=== PATIENT | female | born 1960 | race Caucasian/White ===

== ENCOUNTER 2019-03-06 15:45 | Emergency (ER) | payer MEDICARE, MEDICAID, SELFPAY ==
[2019-03-06 15:48] VITALS: BP 102/83; PULSE 90; RESP 18; TEMP 36.3; O2SAT 96; BMI 29.8
--- NOTE | 2019-03-06 15:59 | ED_ITS ---
HPI - General Adult General: Chief complaint: General Medical, Adult Stated complaint: fever, cough, n/v/d, patient states that she has had cough and congestion for the last week. Patient had fallen and cracked left anterior ribs about 5 weeks ago. Patient feels like she may have pneumonia. Patient appears well. Patient appears in mild pain. Patient also states she has diarrhea but she has been doing that for the last 8 weeks and is waiting results from colonoscopy. Time Seen by Provider: 03/06/19 15:53 Source: patient Mode of arrival: ambulatory Limitations: no limitations Review of Systems General: Reports: 10 or more systems reviewed and unremarkable except in HPI and below Const: Reports: fever Resp: Reports: non-productive cough GI: Reports: diarrhea PFSH ED PFSH: Statuses (acute, chronic, etc) shown below reflect problem list status as previously entered and may not be historically accurate Social History Smoking and tobacco status: current every day smoker Physical Exam Const: COMMON NORMALS: no apparent distress and oriented x3 GENERAL APPEARANCE: cooperative HENMT: COMMON NORMALS: normocephalic, external ears normal, EAC's normal, TM's normal bilaterally and external nose normal HEAD & SCALP: normal to inspection and normocephalic FACE & SINUS: normal facial exam NOSE: external nose normal GENERAL EAR: hearing grossly impaired EXTERNAL EAR: Yes external ears normal EXTERNAL AUDITORY CANAL: EAC's normal TYMPANIC MEMBRANE: TM's normal bilaterally MOUTH: oral and palatal mucosa normal THROAT: posterior oropharynx normal Eye: COMMON NORMALS: PERRL and EOMs intact bilaterally PUPIL: Yes PERRL Neck/C-Spine: COMMON NORMALS: full ROM and no lymphadenopathy Lymph: LYMPHATIC: no lymphedema noted Chest: COMMONS NORMALS: inspection of chest normal and palpation of chest normal Resp: COMMON NORMALS: normal respiratory effort and clear to auscultation bilaterally AUSCULTATION: clear to auscultation bilaterally Cardio: COMMON NORMALS: regular rate and regular rhythm RATE: regular rate RHYTHM: regular rhythm GI: COMMON NORMALS: normal to inspection, nondistended, normoactive bowel sounds and non-tender : COMMON NORMALS: Yes no CVA tenderness BLADDER/KIDNEY EXAM: Yes no CVA tenderness Back/Pelvis: COMMON NORMALS: no CVA tenderness and thoracic and lumbar spine normal to inspection Extremity: COMMON NORMALS: normal to inspection GENERAL: No edema Neuro: COMMON NORMALS: oriented x3, moves all extremities and no focal motor deficits Psych: COMMON NORMALS: mental status grossly normal and cooperative Skin: COMMON NORMALS: no rashes or lesions noted GENERAL SKIN EXAM: no rashes or lesions noted Course Vital Signs: Vital signs: Vital Signs Temperature 97.4 F L 03/06/19 15:48 Pulse Rate 84 03/06/19 16:57 Respiratory Rate 20 H 03/06/19 16:57 Blood Pressure 120/86 03/06/19 16:57 Pulse Oximetry 96 03/06/19 16:57 MDM - General Adult MDM Narrative: Medical decision making narrative: Patient comes in today for complaints of cough with fever for the last 2 to 3 days. Patient reports an injury to her left ribs about 5 weeks ago and is concerned she might be developing pneumonia. Lungs are clear to auscultation with occasional anterior rhonchi. Skin is warm and dry color is pink. Vital signs are stable with normal oxygenation. Differential diagnosis includes bronchitis, upper respiratory infection, influenza, pneumonia. Laboratory values were insignificant. Patient was given a dose of dexamethasone for cough and congestion. Patient was started on doxycycline for 10 days for bronchitis. Encourage fluids rest and follow-up with primary care. Patient reported understanding and agreed to plan. Discharge Plan Discharge Patient Disposition: Home, Self-Care Clinical Impression: Bronchitis Condition: Stable Prescriptions: New doxycycline hyclate 100 mg capsule 100 mg PO BID 10 Days Qty: 20 RF: 0 Discharge Orders: Discharge Order (Routine); Ordered 03/06/19 Ordered By: Cliff Mcdaniels Referrals: Geovanna Hernandez MD [Family Provider] - Discharge Diet: Usual diet Discharge Activity: Resume usual activity Activity Restrictions/Additional Instructions: Drink plenty of fluids Acetaminophen and ibuprofen for pain or fever Activity as tolerated Follow-up with primary care in three days for recheck Return to ER for worsening difficulty breathing Coding Level of Care Code ED Is Project Manager for Kishan Sandhu Exam Problem Focused
--- NOTE | 2019-03-06 16:01 | XRR_ITS ---
PROCEDURE INFORMATION: Exam: XR Chest, 1 View Exam date and time: 03/06/2019 4:02 PM Age: 59 years old Clinical indication: Patient HX: Diarrhea x 2 wks, smoker; Additional info: Cough, fever TECHNIQUE: Imaging protocol: XR of the chest Views: 1 view. COMPARISON: CR Chest 2 views* [id number] 01/06/2019 4:16 PM FINDINGS: Lungs: Stable COPD . Mild left basilar bronchopneumonia. Pleural space: Unremarkable. No pleural effusion. No pneumothorax. Heart/Mediastinum: Unremarkable. No cardiomegaly. Bones/joints: Unremarkable. XR/XR chest 1V portable [id number] IMPRESSION: Mild left basilar bronchopneumonia.
[2019-03-06 16:57] VITALS: BP 120/86; PULSE 84; RESP 20; O2SAT 96
[2019-03-06 17:21] LABS: Influenza A by IFA Negative (Negative); Influenza B by IFA Negative (Negative)
[2019-03-06] MEDS: dexamethasone 10 mg/mL INJ IM (17:28)
[2019-03-06] MEDS: doxycycline 100 mg Tablet PO (17:28)
--- NOTE | 2019-03-06 17:29 | W.ED.GENADLT ---
HPI - General Adult General: Chief complaint: General Medical, Adult Stated complaint: fever, cough, n/v/d, patient states that she has had cough and congestion for the last week. Patient had fallen and cracked left anterior ribs about 5 weeks ago. Patient feels like she may have pneumonia. Patient appears well. Patient appears in mild pain. Patient also states she has diarrhea but she has been doing that for the last 8 weeks and is waiting results from colonoscopy. Time Seen by Provider: 03/06/19 15:53 Source: patient Mode of arrival: ambulatory Limitations: no limitations PFSH ED PFSH: Statuses (acute, chronic, etc) shown below reflect problem list status as previously entered and may not be historically accurate Social History Smoking and tobacco status: current every day smoker Course Vital Signs: Vital signs: Vital Signs Temperature 97.4 F L 03/06/19 15:48 Pulse Rate 86 03/06/19 17:46 Respiratory Rate 22 H 03/06/19 17:46 Blood Pressure 113/84 03/06/19 17:46 Pulse Oximetry 97 03/06/19 17:46 MDM - General Adult Lab Data: Labs: Lab Results 03/06/19 Range/Units 16:45 Influenza Type A A g Negative (Negative) POC Influenza B Ag Negative (Negative) Discharge Plan Discharge Patient Disposition: Home, Self-Care Clinical Impression: Bronchitis, Flu syndrome Condition: Stable Prescriptions: New doxycycline hyclate 100 mg capsule 100 mg PO BID 10 Days Qty: 20 RF: 0 Tamiflu 75 mg capsule 75 mg PO BID 5 Days Qty: 10 RF: 0 Discharge Orders: Discharge Order (Routine); Ordered 03/06/19 Ordered By: Cliff Mcdaniels Referrals: Geovanna Hernandez MD [Family Provider] - Discharge Diet: Usual diet Discharge Activity: Resume usual activity Patient Instructions: Influenza (ED) Activity Restrictions/Additional Instructions: Drink plenty of fluids Acetaminophen and ibuprofen for pain or fever Activity as tolerated Follow-up with primary care in three days for recheck Return to ER for worsening difficulty breathing Discharge Date/Time: 03/06/19 17:44 Coding Level of Care Code ED Tea And Spice Supervisor for Kishan Sandhu
--- NOTE | 2019-03-06 17:35 | ED_ITS ---
HPI - General Adult General: Chief complaint: General Medical, Adult Stated complaint: fever, cough, n/v/d, patient states that she has had cough and congestion for the last week. Patient had fallen and cracked left anterior ribs about 5 weeks ago. Patient feels like she may have pneumonia. Patient appears well. Patient appears in mild pain. Patient also states she has diarrhea but she has been doing that for the last 8 weeks and is waiting results from colonoscopy. Time Seen by Provider: 03/06/19 15:53 Source: patient Mode of arrival: ambulatory Limitations: no limitations PFSH ED PFSH: Statuses (acute, chronic, etc) shown below reflect problem list status as previously entered and may not be historically accurate Social History Smoking and tobacco status: current every day smoker Course Vital Signs: Vital signs: Vital Signs Temperature 97.4 F L 03/06/19 15:48 Pulse Rate 84 03/06/19 16:57 Respiratory Rate 20 H 03/06/19 16:57 Blood Pressure 120/86 03/06/19 16:57 Pulse Oximetry 96 03/06/19 16:57 MDM - General Adult MDM Narrative: Medical decision making narrative: addendum, flu swab came back positive for type A, added tamiflu to plan Lab Data: Labs: Lab Results 03/06/19 Range/Units 16:45 Influenza Type A A g Negative (Negative) POC Influenza B Ag Negative (Negative) Discharge Plan Discharge Patient Disposition: Home, Self-Care Clinical Impression: Bronchitis, Flu syndrome Condition: Stable Prescriptions: New doxycycline hyclate 100 mg capsule 100 mg PO BID 10 Days Qty: 20 RF: 0 oseltamivir [Tamiflu] 75 mg capsule 75 mg PO BID 5 Days Qty: 10 RF: 0 Discharge Orders: Discharge Order (Routine); Ordered 03/06/19 Ordered By: Cliff Mcdaniels Referrals: Geovanna Hernandez MD [Family Provider] - Discharge Diet: Usual diet Discharge Activity: Resume usual activity Patient Instructions: Influenza (ED) Activity Restrictions/Additional Instructions: Drink plenty of fluids Acetaminophen and ibuprofen for pain or fever Activity as tolerated Follow-up with primary care in three days for recheck Return to ER for worsening difficulty breathing Coding Level of Care Code ED Extrusion Engineer for Kishan Sandhu
[2019-03-06] MEDS: oseltamivir phosphate 75 mg Capsule PO (17:43)
[2019-03-06 17:46] VITALS: BP 113/84; PULSE 86; RESP 22; O2SAT 97
== END 2019-03-06 17:44 | disposition home or self-care (01) ==
PROVIDERS: Emergency Provider Nurse Practitioner Family; Family Provider Internal Medicine
DX: J40 Bronchitis, not specified as acute or chronic (principal); F17.210 Nicotine dependence, cigarettes, uncomplicated
CPT/HCPCS: 71045; 87804; 96372; 99282; J1100

== ENCOUNTER → 2019-05-30 13:51 | Outpatient (BNVA) | payer MEDICARE, MEDICAID, SELFPAY | PROVIDERS: Family Provider Internal Medicine; PCP Internal Medicine; Visit Provider Internal Medicine Rheumatology | DX: M05.79 Rheumatoid arthritis with rheumatoid factor of multiple sites without organ or systems involvement (principal); Z79.899 Other long term (current) drug therapy | CPT/HCPCS: 36415; 80076; 82565; 85025; 85651; 86140 ==

== ENCOUNTER → 2019-05-30 14:03 | Outpatient (BNVA) | payer MEDICARE, MEDICAID, SELFPAY | PROVIDERS: Family Provider Internal Medicine; PCP Internal Medicine; Visit Provider Internal Medicine Rheumatology | DX: M05.79 Rheumatoid arthritis with rheumatoid factor of multiple sites without organ or systems involvement (principal); Z79.899 Other long term (current) drug therapy | CPT/HCPCS: 85025 ==

== ENCOUNTER 2019-06-22 16:02 | Outpatient (CLI) | payer MEDICARE, MEDICAID, SELFPAY ==
--- NOTE | 2019-06-22 16:11 | USCV_ITS ---
Shana Roy Age: 59 Gender: F : 1960 Exam Date: 06/22/2019 16:19 Ordering Phys: Ceci Sinclair APPLICATION HELPER Technologist: Tatum Almodovar [place] [facility] [place]ication: LEG PAIN HISTORY: Lower extremity pain. PROCEDURES: Venous duplex imaging was performed in only the right lower extremity. The following venous structures were evaluated: common femoral vein, profunda vein, proximal portion of the greater saphenous vein, superficial femoral vein, and the popliteal vein. In addition, the posterior tibial and peroneal trunk were evaluated. Serial compression, augmentation maneuvers, and spectral Doppler flow evaluation were performed. FINDINGS: No evidence of DVT seen in any vessel visualized at this time. In the right popliteal fossa there does appear to be a large bakers cyst that appears complex At 3.8 x 3.0 somewhat echolucent area in the popliteal region CONCLUSIONS No evidence of DVT in the above-mentioned identifiable veins. Possible Teague's cyst measuring 3.8 x 3.[address] on the right side. Dr Dangelo Florez MD [facility] (Electronically Signed) Final Date: 22 June 2019 18:01 S
== END 2019-06-22 16:03 | disposition home or self-care (01) ==
LOC: RAD 16:04
PROVIDERS: Family Provider Internal Medicine; PCP Internal Medicine; Visit Provider Nurse Practitioner Family
DX: M79.604 Pain in right leg (principal)
CPT/HCPCS: 93971

== ENCOUNTER → 2019-07-04 13:36 | Outpatient (BNVA) | payer MEDICARE, MEDICAID, SELFPAY | PROVIDERS: Family Provider Internal Medicine; PCP Internal Medicine; Referring Provider Nurse Practitioner Family; Visit Provider Orthopaedic Surgery | DX: M25.569 Pain in unspecified knee (principal); M17.0 Bilateral primary osteoarthritis of knee | CPT/HCPCS: 73560; 73565 ==

== ENCOUNTER 2019-07-28 11:19 | Emergency (ER) | payer MEDICARE, MEDICAID, SELFPAY ==
[2019-07-28 11:40] VITALS: BP 99/71; PULSE 104; RESP 18; TEMP 36.8; O2SAT 94; BMI 28.0
--- NOTE | 2019-07-28 12:00 | W.ED.EXTPRO ---
HPI - Extremity Problem General: Chief complaint: Extremity Problem,Nontraumatic Stated complaint: right knee pain/swelling Time Seen by Provider: 07/28/19 11:47 History of Present Illness: HPI Narrative: Patient is a 59 year old female with history of RA. She has been having severe right knee pain for 3 months. She is scheduled for MRI tomorrow. She said she hates taking pain medicine and normally will do it but she is to the point where the pain is keeping her from doing anything. She is unable to sleep. She is willing to take pain medicine. There is nothing new or different about the pain today. Complaint: extremity pain, extremity swelling and joint swelling Onset (ago): week(s) (14) Pain Consistency: constant Location: right and knee Quality: burning Associated symptoms: Deny fever(s) Review of Systems Const: Denies: fever(s) or chills Musc: Reports: joint pain and joint swelling PFS ED PFSH: Medical History Atrial fibrillation Edema leg Hypertension Hypotension Nonischemic cardiomyopathy Rheumatoid arthritis Family History Father Cancer Mother Cancer Sister Cancer Other CAD (coronary artery disease) Hyperlipidemia Hypertension Lung disease Denies family history of Psychiatric illness Social History Smoking and tobacco status: current every day smoker Physical Exam Const: COMMON NORMALS: no acute distress, patient oriented x3, no limitations and alert GENERAL APPEARANCE: cooperative and comfortable HENMT: HEAD & SCALP: normal to inspection FACE & SINUS: normal facial exam Eye: GENERAL EYE: appearance normal, both eyes and all related structures Neck/C-Spine: COMMON NORMALS: supple and no meningeal signs Chest: COMMONS NORMALS: normal inspection of the chest Resp: COMMON NORMALS: normal respiratory effort and No use of accessory muscles GI: COMMON NORMALS: Normal to inspection, nondistended, normoactive bowel sounds present, Soft to palpation and non-tender INSPECTION: Yes normal to inspection AUSCULTATION: Yes normoactive bowel sounds PALPATION: Yes Soft to palpation Extremity: NARRATIVE EXTREMITY EXAM: Pain, swelling, tenderness to the right knee. Neuro: COMMON NORMALS: patient oriented x3, moves all extremities, no focal motor deficits and no sensory deficits noted SENSORIUM/ORIENTATION: Yes alert MENINGEAL SIGNS: Yes no meningeal signs Psych: COMMON NORMALS: mental status grossly normal, cooperative and normal affect Skin: COMMON NORMALS: no rashes or lesions noted and turgor normal GENERAL SKIN EXAM: no rashes or lesions noted and turgor normal Course ED course: This patient has been seeing Dr. Rice for her knee pain. She is scheduled for an MRI tomorrow. Previously she had declined pain medicine but she is ready to take some as she is unable to tolerate the pain anymore. Given her a prescription for oxycodone and give her a dose here in the ER. She has nausea medicine at home. Vital Signs: Vital signs: Vital Signs Temperature 98.2 F 07/28/19 11:40 Pulse Rate 104 H 07/28/19 11:40 Respiratory Rate 18 07/28/19 11:40 Blood Pressure 99/71 07/28/19 11:40 Pulse Oximetry 94 07/28/19 11:40 Discharge Plan Discharge Patient Disposition: Home, Self-Care Clinical Impression: Acute knee pain Qualifiers: Laterality: right Qualified Code(s): M25.561 - Pain in right knee Condition: Stable Prescriptions: New oxycodone-acetaminophen 5-325 mg tablet 1 tab PO Q6H PRN (Reason: pain) Qty: 30 RF: 0 No Action furosemide [Lasix] 40 mg tablet 40 mg PO BID RF: 0 potassium chloride [Klor-Con M20] 20 mEq tablet,ER particles/crystals 20 meq PO BID RF: 0 spironolactone 25 mg tablet 25 mg PO DAILY RF: 0 lisinopril 2.5 mg tablet 2.5 mg PO ONCE RF: 0 folic acid 1 mg tablet 1 mg PO ONCE RF: 0 prednisone 10 mg tablet 10 mg PO DAILY PRNRF: 0 metoprolol succinate 25 mg tablet extended release 24 hr 12.5 mg PO .PM RF: 0 diltiazem HCl 120 mg tablet extended release 24 hr 120 mg PO QAM RF: 0 gabapentin 300 mg capsule 300 mg PO TID RF: 0 Eliquis 5 mg tablet 5 mg PO BID RF: 0 ranitidine HCl [Acid Printed Circuit Photographer (ranitidine)] 150 mg tablet 150 mg PO BID RF: 0 aspirin [Children's Aspirin] 81 mg tablet,chewable 81 mg PO ONCE RF: 0 methotrexate sodium 2.5 mg tablet 15 mg PO .WEEKLY Qty: 30 RF: 2 Discharge Orders: Discharge Order (Routine); Ordered 07/28/19 Ordered By: Michelle Momin Referrals: Geovanna Hernandez MD [Primary Care Provider] - Discharge Diet: Usual diet Discharge Activity: Increase activity as tolerated Patient Instructions: Knee Pain (ED) Activity Restrictions/Additional Instructions: Use the pain medicine as needed - you may take up to two tablets every 4 hours if needed. Coding Level of Care Code ED Rotary Surface Grinder for Chg Fwd Exam Comprehensive
[2019-07-28 12:16] VITALS: RESP 19
[2019-07-28] MEDS: oxyCODONE-APAP 5-325 mg Tablet 1 TAB PO (12:16)
[2019-07-28 12:51] VITALS: BP 118/62; PULSE 102; RESP 18; O2SAT 98
== END 2019-07-28 12:50 | disposition home or self-care (01) ==
PROVIDERS: Emergency Provider Emergency Medicine; PCP Internal Medicine
DX: M25.561 Pain in right knee (principal); Z79.01 Long term (current) use of anticoagulants; Z79.82 Long term (current) use of aspirin; I48.91 Unspecified atrial fibrillation; I10 Essential (primary) hypertension; F17.210 Nicotine dependence, cigarettes, uncomplicated
CPT/HCPCS: 12345; 99281; 99282

== ENCOUNTER 2019-07-29 15:11 | Outpatient (CLI) | payer MEDICARE, MEDICAID, SELFPAY ==
--- NOTE | 2019-07-29 15:15 | MR_ITS ---
WS: [id number] MRI RIGHT KNEE HISTORY: M71.21 Synovial cyst of popliteal space [Teague], right knee COMPARISON: Radiographs 07/04/2019 Anterior cruciate ligament: Normal course of the ligament. There is some increased signal in the dist al ligament but no full-thickness tear. Posterior cruciate ligament: Intact. Medial collateral ligament: Intact with increased fluid signal on both sides. Posterior lateral corner structures: Intact. Medial menisci: Intact. Normal signal, size and shape. Lateral meniscus: Mild blunting of the free edge of the posterior horn towards the meniscal root. No air identified. Extensor mechanism: Distal quadriceps tendon and patellar tendons are intact. Fluid and soft tissue: There is a large amount of complex fluid in the knee joint. Marked synovial th ickening and heterogeneous fluid. There is a large amount of edema in the soft tissues around the kne e. There is lobulated, nodular mass posterior to the femoral condyles and along the medial knee cours ing along the popliteal fossa. There is a large complex fluid collection in Teague's cyst. This is a m ultinodular collection extending over length of at least 6 cm. Osseous and articular structures: Patellofemoral compartment: Loss of cartilage along the articular facets with joint space narrowing. Medial compartment: Small amount of edema along the medial tibial plateau with complete loss of carti riki. Osteophytes extend from the joint surfaces laterally. Lateral compartment: Small amount of marrow edema along the tibial plateau and femoral condyle with o steophytes and loss of cartilage. MR/MR knee RT wo con* [id number] IMPRESSION: 1. Marked synovial thickening with nodular components surrounding the knee. Th ere is a large suprapatellar joint effusion and a large complex Teague's cyst. T here is marked synovial thickening with variable signal. No hemosiderin on this examination to suggest PVNS. Infection and synovitis should be considered. 2. Advanced tricompartment degenerative changes with loss of cartilage.
== END 2019-07-29 15:12 | disposition home or self-care (01) ==
LOC: RADSHAW 15:15
PROVIDERS: PCP Internal Medicine; Visit Provider Orthopaedic Surgery
DX: M71.21 Synovial cyst of popliteal space [Baker], right knee (principal); M25.461 Effusion, right knee
CPT/HCPCS: 73721

== ENCOUNTER → 2019-08-19 11:30 | Outpatient (BNVA) | payer MEDICARE, MEDICAID, SELFPAY | PROVIDERS: PCP Internal Medicine; Visit Provider Internal Medicine | DX: M06.9 Rheumatoid arthritis, unspecified (principal); F17.210 Nicotine dependence, cigarettes, uncomplicated; Z79.52 Long term (current) use of systemic steroids; Z79.899 Other long term (current) drug therapy | CPT/HCPCS: 99214 ==

== ENCOUNTER → 2019-08-22 11:30 | Outpatient (BNVA) | payer MEDICARE, MEDICAID, SELFPAY | PROVIDERS: PCP Internal Medicine; Visit Provider Internal Medicine | DX: Z79.899 Other long term (current) drug therapy (principal) | CPT/HCPCS: 36415; 80053; 85025; 86140 ==

== ENCOUNTER → 2019-08-31 10:25 | Outpatient (BNVA) | payer MEDICARE, MEDICAID, SELFPAY | PROVIDERS: PCP Internal Medicine; Visit Provider Internal Medicine | DX: M06.9 Rheumatoid arthritis, unspecified (principal); Z53.8 Procedure and treatment not carried out for other reasons | CPT/HCPCS: 36415 ==

== ENCOUNTER 2019-09-01 09:44 | Outpatient (CLI) | payer MEDICARE, MEDICAID, SELFPAY ==
[2019-09-01 10:15] LABS: Basophils % 0.4 %; Eosinophils # 0.1 10^3/uL (0.0-0.8); Hematocrit 40.4 % (37.0-47.0); Hemoglobin 12.8 g/dL (11.5-15.3); Lymphocytes # 1.7 10^3/uL (0.8-4.8); Lymphocytes % 24.2 %; Mean Corpuscular HGB Conc 31.7 g/dL (30.0-36.0); Mean Corpuscular Hemoglobin 29.2 pg (28.0-34.0); Mean Platelet Volume 9.8 fL (7.4-10.4); Monocytes # 0.5 10^3/uL (0.2-0.9); Monocytes % 6.8 %; Neutrophils # 4.8 10^3/uL (1.8-7.7); Neutrophils % 67.2 %; Nucleated Red Blood Cells % 0 %; Platelet Count 341 10^3/cmm (130-400); Red Blood Count 4.39 10^6/uL (4.1-5.3); Red Cell Distribution Width 15.2 % (12.1-15.1); White Blood Count 7.1 10^3/uL (4.0-10.0)
[2019-09-01 10:37] LABS: Alanine Aminotransferase 11 U/L (0-33); Albumin Level 3.4 g/dL (3.5-5.2); Alkaline Phosphatase 172 IU/L (35-105); Anion Gap 17.5 (5-19); Aspartate Amino Transferase 17 U/L (0-32); Blood Urea Nitrogen 7 mg/dL (8-23); C Reactive Protein 36.9 mg/L (0.0-4.9); Calcium 9.5 mg/dL (8.5-10.5); Carbon Dioxide 28 mmol/L (22-29); Chloride 98 mmol/L (98-107); Globulin 4.6 g/dL (1.3-4.6); Glomerular Filtration Rate 101.6 mL/min (90-130); Glucose 134 mg/dL (65-115); Osmolality Calculated 286 mOsm/kg (285-295); Potassium 4.5 mmol/L (3.5-5.1); Sodium 139 mmol/L (136-145); Total Bilirubin 0.4 mg/dL (0.15-1.2)
[2019-09-01 11:24] LABS: Erythrocyte Sedimentation Rate 76 mm/hr (0-15)
== END 2019-09-01 09:45 | disposition home or self-care (01) ==
PROVIDERS: PCP Internal Medicine; Visit Provider Internal Medicine
DX: Z79.899 Other long term (current) drug therapy (principal); M06.9 Rheumatoid arthritis, unspecified
CPT/HCPCS: 36415; 80053; 85025; 85651; 86140

== ENCOUNTER 2019-09-19 | Day surgery (SDC) | payer MEDICARE, MEDICAID, SELFPAY ==
--- NOTE | 2019-09-19 10:57 | P.ANESASSM_ITS ---
Pre-Anesthetic Assessment Pre-Anesthetic Assessment: Height/Weight: Height 1.68 m Weight 83.915 kg Preop Diagnosis: OA Proposed Procedure: Operation Date: 09/26/19 12:20 Proposed Procedures p Total Knee Arthroplasty 74279 M17.11(Right) - Jovan Crawley MD Familial anesthetic complications: None Social: Social History: Tobacco and No alcohol Exam: Pre-Anes Outpt Exam: alert, oriented x 3, clear to auscultation bilaterally and regular rate & rhythm Airway: Cervical ROM: WNL (rheumatoid arthritis - neck pain, but no laxity that patient is aware of) MP: 2 Dentition: False Pulmonary: Pulmonary: Asthma, COPD, PABLO and SOB CV/HEM: CV/HEM: Afib, Angina (Stable) (no pains in 3 weeks), CHF, HTN and [place] (5 years ago (no interventions were done)) Comments: patient will have echo on before surgery Musc/skel: Musc/skel: RA (on metheotrexate (stopped it 3 weeks ago) and prednisone (chronic) -will need to give hydrocortisone 100 mg IV for stress dose steroid) Neuropsych: Neuropsych: CVA Anesthetic Plan: ASA status: 4 Anesthesia: Regional (specify below) Other: spinal with general as back up Risk of > 500 ml blood loss (7ml/kg in children): No PFSH Anesthesia 2 PFSH: Medical History Atrial fibrillation Edema leg Hypertension Hypotension Nonischemic cardiomyopathy Osteoarthritis Rheumatoid arthritis Family History Father Cancer Mother Cancer Sister Cancer Other CAD (coronary artery disease) Hyperlipidemia Hypertension Lung disease Denies family history of Psychiatric illness Social History Smoking and tobacco status: current every day smoker Alcohol intake: never History of recent travel: No Data Anesthesia Cardiac Studies: No Data to Display
--- NOTE | 2019-09-19 11:31 | ECG_ITS ---
[facility] Test Date: 2019-09-19 Pat Name: Shana Roy Department: Room: Gender: Female Applications Scientist: : 1960 Requested By: Silvia Osborne Order Number: [id number] Patty MD: Justo Baez M.D. Measurements Intervals [place] Rate: 106 P: 48 [place]: 156 QRS: 63 QRSD: 110 T: 110 QT: 324 QTc: 431 Interpretive Statements SINUS TACHYCARDIA WITH FREQUENT SUPRAVENTRICULAR PREMATURE COMPLEXES ST DEVIATION AND MODERATE T-WAVE ABNORMALITY, CONSIDER LATERAL ISCHEMIA [-0.1+ mV T WAVE IN I/aVL/V5/V6] Compared to ECG 12/14/2018 14:15:26 Possible ischemia now present T-wave abnormality still present Electronically Signed On 09-20-2019 16:29:25 CDT by Justo Baez M.D. [email or web address]
[2019-09-19 11:48] LABS: Basophils # 0.1 10^3/uL (0.0-0.1); Basophils % 0.6 %; Eosinophils # 0.1 10^3/uL (0.0-0.8); Eosinophils % 0.7 %; Hematocrit 40.9 % (37.0-47.0); Hemoglobin 12.9 g/dL (11.5-15.3); Lymphocytes # 1.4 10^3/uL (0.8-4.8); Lymphocytes % 16.4 %; Mean Corpuscular HGB Conc 31.5 g/dL (30.0-36.0); Mean Corpuscular Hemoglobin 29.6 pg (28.0-34.0); Mean Corpuscular Volume 93.8 fL (81-99); Mean Platelet Volume 10.3 fL (7.4-10.4); Monocytes # 0.7 10^3/uL (0.2-0.9); Monocytes % 8.1 %; Neutrophils # 6.33 10^3/uL (1.8-7.7); Neutrophils % 74.1 %; Nucleated Red Blood Cells % 0 %; Platelet Count 328 10^3/cmm (130-400); Red Blood Count 4.36 10^6/uL (4.1-5.3); Red Cell Distribution Width 14.6 % (12.1-15.1); White Blood Count 8.5 10^3/uL (4.0-10.0)
[2019-09-19 12:08] LABS: Anion Gap 14.1 (5-19); Blood Urea Nitrogen 11 mg/dL (8-23); Carbon Dioxide 29 mmol/L (22-29); Chloride 96 mmol/L (98-107); Glomerular Filtration Rate 72.9 mL/min (90-130); Glucose 118 mg/dL (65-115); Osmolality Calculated 277 mOsm/kg (285-295); Potassium 4.1 mmol/L (3.5-5.1); Sodium 135 mmol/L (136-145)
[2019-09-19 16:56] LABS: Urine Appearance SL Hazy (CLEAR); Urine Color Yellow (Yellow); pH Urine 5 (5-7)
[2019-09-19 16:57] LABS: Bilirubin Urine 1+ (NEGATIVE); Blood Urine Neg (Negative); Glucose Urine UA Norm (Normal); Ketones Urine Negative (Negative); Leukocyte Esterase Urine Negative (Negative); Nitrate Urine Negative (Negative); Protein Urine Neg (Negative); Specific Gravity, Urine 1.025 (1.005-1.030); Urobilinogen Urine 1 mg/dL (Negative)
[2019-09-19 16:58] LABS: Bacteria Urine 1+; Calcium Oxalate Crystals Urine 0-4 /hpf; Mucus Urine TRACE; Squamous Epithelial Cell Urine 0-4 (0-5); WBC Urine 0-4 /hpf (0-5)
[2019-09-19 16:59] LABS: Add Urine Culture? No; Amorphous Sediment Urine 1+
[2019-09-20 08:52] LABS: Coronavirus Lab Test PTC NOT DETECTED
== END 2019-09-28 23:00 | disposition home or self-care (01) ==
LOC: OR 10-19 12:28
PROVIDERS: Anesthesiology; PCP Internal Medicine; Visit Provider Orthopaedic Surgery
DX: Z01.818 Encounter for other preprocedural examination (principal); M17.11 Unilateral primary osteoarthritis, right knee; R94.31 Abnormal electrocardiogram [ECG] [EKG]
CPT/HCPCS: 36415; 80048; 81001; 85025; 87635; 93005

== ENCOUNTER 2019-09-23 06:56 | Outpatient (CLI) | payer MEDICARE, MEDICAID, SELFPAY ==
--- NOTE | 2019-09-23 07:15 | USCV_ITS ---
Shana Roy Age: 59 Gender: F : 1960 Exam Date: 09/23/2019 07:23 Ordering Phys: Cristel Hayes MD ([email or web address]) Technologist: Jessica Lindsey Exam Location: [facility] [place] Indication: PRE OP CLEARANCE BP: / HR: 101 Rhythm: Sinus Technical Quality: Fair MEASUREMENTS (Male / Female) Normal Values 2D ECHO LV Diastolic Diameter PLAX 5.9 cm 4.2 - 5.9 / 3.9 - 5.3 cm LV Systolic Diameter PLAX 5.8 cm LV Chamber Size 5.8 cm IVS Diastolic Thickness 1.8 cm 0.6 - 1.0 / 0.6 - 0.9 cm IVS Systolic Thickness 1.8 cm LVPW Diastolic Thickness 1.5 cm 0.6 - 1.0 / 0.6 - 0.9 cm LVPW Systolic Thickness 1.5 cm RV Chamber Size 2.2 cm LVOT Diameter 2.0 cm LV Ejection Fraction 2D Teich 4.6 % LV Ejection Fraction MOD 2C 19.1 % LV Ejection Fraction 2C AL 17.7 % LA Diameter 4.3 cm LA Width 3.7 cm LA Height 5.4 cm RA Width 3.3 cm RA Height 3.6 cm Aorta at Sinotubular Diameter 3.1 cm M-MODE LV Diastolic Diameter MM 6.1 cm 4.2 - 5.9 / 3.9 - 5.3 cm LV Systolic Diameter MM 5.2 cm LV Ejection Fraction MM Teich 30.3 % IVS Diastolic Thickness MM 1.0 cm 0.6 - 1.0 / 0.6 - 0.9 cm IVS Systolic Thickness MM 1.3 cm LVPW Diastolic Thickness MM 1.0 cm 0.6 - 1.0 / 0.6 - 0.9 cm LVPW Systolic Thickness MM 1.8 cm RV Diastolic Diameter MM 1.0 cm Aortic Annulus Diameter 3.6 cm LA Ao Ratio MM 1.2 MV E Point Septal Separation 2.0 cm DOPPLER AV Peak Velocity 112.0 cm/s LVOT Peak Velocity 64.0 cm/s AV Area Cont Eq vti 2.2 cm squared AV Area Cont Eq pk 1.9 cm squared MV Area PHT 8.1 cm squared Mitral E to A Ratio 2.7 MV E' Velocity 6.0 cm/s Mitral E to MV E' Ratio 18.8 Mitral E to LV E' Lateral Ratio 25.1 Mitral E to LV E' Septal Ratio 15.2 TR Peak Velocity 75.8 cm/s TR Peak Gradient 2.3 mmHg TR Mean Velocity 54.9 cm/s TR Mean Gradient 1.4 mmHg TR Velocity Time Integral 16.7 cm TV Peak E Velocity 80.0 cm/s Right Atrial Pressure 3.0 mmHg Pulmonary Artery Systolic Pressu 5.3 mmHg PV Peak Velocity 77.0 cm/s RV Acceleration Time 0.1 s RV Ejection Time 0.3 s RV AcT/ET 0.4 FINDINGS Left Ventricle Severely increased left ventricular cavity size. Severely decreased left ventricular systolic function. Left ventricular ejection fraction is estimated at 20 %. Global left ventricular hypokinesis. Grade IV/IV diastolic dysfunction (irreversible restrictive filling pattern), severely elevated filling pressures. Right Ventricle The right ventricle is normal in size and function. RVSP could not be calculated due to incomplete tricuspid regurgitation velocity profile. Right Atrium The right atrium is normal in size. Left Atrium Moderately increased left atrial size. Mitral Valve Mildly thickened mitral valve. No mitral valve stenosis. Mild mitral valve regurgitation. Aortic Valve Aortic valve sclerosis without stenosis. No aortic valve stenosis. Mild aortic valve regurgitation. Tricuspid Valve Mild tricuspid valve regurgitation. Pulmonic Valve Structurally normal pulmonic valve without significant stenosis. There is no pulmonic regurgitation. Pericardium Normal pericardium without effusion. Aorta Normal ascending aorta dimension. CONCLUSIONS 1-Severely increased left ventricular cavity size. Severely decreased left ventricular systolic function. Left ventricular ejection fraction is estimated at 20 %. Global left ventricular hypokinesis. Grade IV/IV diastolic dysfunction (irreversible restrictive filling pattern), severely elevated filling pressures. 2-Moderately increased left atrial size. 3-No significant valve abnormalities. 4-There is no pericardial effusion. 5-When compared to the prior echocardiogram dated March 29, 2016 there is worsening of left ventricle systolic function from moderately depressed 41% to severely depressed 20% now Cristel Hayes MD (Electronically Signed) Final Date: 25 September 2019 18:20 S
== END 2019-09-23 06:57 | disposition home or self-care (01) ==
PROVIDERS: PCP Internal Medicine; Visit Provider Internal Medicine Cardiovascular Disease
DX: I51.81 Takotsubo syndrome; I51.7 Cardiomegaly; Z01.810 Encounter for preprocedural cardiovascular examination
CPT/HCPCS: 93306

== ENCOUNTER → 2019-10-07 11:23 | Outpatient (BNVA) | payer MEDICARE, MEDICAID, SELFPAY | PROVIDERS: PCP Internal Medicine; Visit Provider Internal Medicine | DX: Z11.59 Encounter for screening for other viral diseases (principal) | CPT/HCPCS: 87635 ==

== ENCOUNTER 2019-10-10 07:47 | Observation (INO) | payer MEDICARE, MEDICAID, SELFPAY ==
[2019-10-07 12:13] VITALS: BMI 29.0
[2019-10-10] VITALS (31 sets, daily range): BP systolic 86–137; BP diastolic 47–87; PULSE 86–118; RESP 6–31; TEMP 36.5–36.6; O2SAT 94–96
--- NOTE | 2019-10-10 06:00 | XACV_ITS ---
Exam Room: [facility] Ht: 168 cm Wt: 82 kg BSA: 1.97 m2 Gender: Female : 1960 Any Known Allergies: Other Exam Priority: Routine Procedure(s): Procedure Description: Diagnostic procedure Procedure Description: Left Heart Catheterization Procedure Description: Left ventriculography Procedure Description: Coronary Angiography Diagnostic Findings No significant disease noted in the Left Main, LAD, Circumflex, or RCA coronary arteries. Coronary angiography shows right dominance. Conclusions No significant disease noted in the Left Main, LAD, Circumflex, or RCA coronary arteries. All harrell are hypokinetic. Severe left ventricular systolic dysfunction. Ejection fraction of 25%. Indication for left catheterization: Significantly drop in left ventricle function in a patient who is a smoker with worsening of heart failure, preop clearance. Recommendations Continue current medical management and risk factor modification. Diagnostic RX Recommendation: medical therapy and/or counseling Ventriculography Ejection Fraction: 25.0 % Pressures Phase:Rest AO : 200 mmHg / 149 mmHg ( 149 mmHg ) @ 2:36:00 AM 187 mmHg / 139 mmHg ( 156 mmHg ) @ 2:38:00 AM 128 mmHg / 77 mmHg ( 98 mmHg ) @ 2:42:00 AM LV : 126 mmHg / 1 mmHg / @ 2:41:00 AM 122 mmHg / 0 mmHg / @ 2:41:00 AM 131 mmHg / 4 mmHg / @ 2:42:00 AM 126 mmHg / -2 mmHg / @ 2:42:00 AM Valves Phase:DefaultPhase AV : 0.0 mmHg @ 7:48:57 AM AV Mean Gradient: 0.0 mmHg @ 7:48:57 AM 0.0 mmHg @ 7:48:57 AM Clinical Evaluation EBL: 5mL-10mL Procedural Details Procedure Consent Obtained. Pre-Procedure Time Out. Identified patient by full name and date of as verbalized by the patient/guarantor. Does the consent match the physician's order: Yes. Accurate & Complete Informed Consent: Yes. Inpatient/Outpatient History & Physical on Chart: Yes. If H&P is completed, is and addenduem needed: N/A; If yes, is the addendum complete: N/A. Visualize and Verify Site with Patient/Guarantor: N/A. Relevant Radiology Images available: Yes. Pre-op teaching completed and patient verbalized understanding. The risks, benefits, and alternatives of sedation and/or procedure were discussed by physician. The patient agrees to continue. Current diagnosis: Chest Pain. PERRLA. Strong, equal hand train dispatcher bilaterally. Lungs clear x 5 lobes. IV Site on Arrival: 22 gauge in the right forearm. IV Fluids: 0.9% NaCl at KVO. 0 mL infused prior to yard laborer. Oxygen started at 2liters/min via nasal canula. right groin was prepped with chloroprep then draped in the usual sterile fashion. right radial was prepped with chloroprep then draped in the usual sterile fashion. Physician notified. Equipment: 6F - Radial. Cardiac Cath Pack. ACIST Manifold Kit Model BT 2000. Heparinized Saline (2 units/mL), 1000 mL bag. Physician arrived. Baseline sample Acquired. HR: 96 BPM. Physician scrubbed in. Immediate Pre-Procedure Time Out. Correct Patient: Yes; Correct Procedure: Yes; Correct Site: Yes; Correct Patient Position: Yes; Correct Supplies: Yes; Dried Flammable Prep: Yes; Blood Products Available: No;. Lidocaine 1% infiltrated to the right radial. Arterial access obtained. A 5 thai TIG catheter in over wire. Multiple views taken of left coronary artery. Catheter redirected to the RCA. Multiple views taken of right coronary artery. Catheter out. A 5 thai Angled Pig catheter in over wire. EDP Sample taken: LV 126/1,7; HR: 102 BPM; SpO2: 97%. LV gram performed in PADILLA @ 10 mL/second for a total of 30 mL. EDP Sample taken: LV 131/4,13; HR: 102 BPM; SpO2: 97%. Pullback taken: LV 126/-3,11; AO 128/77(98); Mean: 0mmHg, Peak to Peak: 0mmHg, SEP: 11sec/min; HR: 101 BPM; SpO2: 97%. Catheter out. A TR Band was successful obtaining hemostatsis at the Right Radial artery insertion site. TR band placed. Hemostasis obtained. Post Procedure: Pulses reassessed and unchanged. PERRLA. Strong, equal hand train dispatcher bilaterally. No VTE prophylaxis required. Medication's Wasted: Heparin = 1000 units. Medication's Wasted: Lidocaine 1% = 18 mL. Medication's Wasted: Nitro = 49.8 mg. Total IV fluids: 28.5 mL. Fluoro: 2:00. Contrast type used: Visipaque 320 mgI/mL, 500 mL bottle. [id number]. Post-op diagnosis: normal coronaries. Complications: none. Estimated blood loss: 5mL-10mL. Procedure completed. Patient transferred by bed to 1st floor. [facility] Clinical Fraility Score: 3: Managing Well. Civil Drafter Indications: Cardiomyopathy. Chest Pain Symptom Assessment: Atypical Angina. Cardiovascular Instability: No. Vital chart was stopped. Site: Right Radial artery Sheath Size: 6 Fr Hemostasis Method: TR Band Hemostasis Success: Successful Procedure Medications Start: 7:30 AM Stop: 7:30 AM Medication: Versed Amount: 1 mg Route: I.V. Start: 7:31 AM Stop: 7:31 AM Medication: Fentanyl Amount: 50 mcg Route: I.V. Start: 7:34 AM Stop: 7:34 AM Medication: Versed Amount: 1 mg Route: I.V. Start: 7:34 AM Stop: 7:34 AM Medication: Fentanyl Amount: 50 mcg Route: I.V. Start: 7:34 AM Stop: 7:34 AM Medication: Nitrogylcerin Amount: 200 mcg Route: I.A. Start: 7:36 AM Stop: 7:36 AM Medication: Heparin Amount: 5000 units Route: I.V. I, the attending physician, have reviewed and verified all procedure medications. Yes, all medications given per verbal order History/Risk Factors Hypertension: Yes Dyslipidemia: Yes Peripheral Arterial Disease (PAD): No Myocardial Infarction (OK): No Obesity: Yes Renal Disease: No Tobacco Use: Current/Recent(w/in 1 year) Prior Interventions PCI: No CABG: No Valve Surgery: No Report Signatures Finalized by:Cristel Hayes MD on 10/10/2019 8:01:07 AM
[2019-10-10] MEDS: diphenhydrAMINE 50 mg Capsule PO (07:15)
--- NOTE | 2019-10-10 07:15 | W.PM.OPSUD ---
Surgery/Procedure H&P Update DATE OF PROCEDURE: October 10, 2019 DATE H&P PERFORMED: 09/07/19 H&P UPDATE INFORMATION: I have reviewed H&P completed within last 30 days, I have examined patient prior to procedure and No changes to prior documentation PREOP DIAGNOSIS: Worsening of LV function severely depressed 20% now PLANNED PROCEDURE: Operation Date: 10/10/19 07:00 Proposed Procedures p Cardiac Catheterization left(Left) - Cristel Hayes MD AIRWAY EVAL/ANESTHESIA PLAN: ASA II, Risks, benefits & alternatives of sedation and/or procedure discussed and Patient agrees to continue as planned
--- NOTE | 2019-10-10 07:17 | P.HP_ITS ---
Providers/Chief Complaint Primary Care Provider: Geovanna Hernandez MD Chief Complaint: left heart cath History of Present Illness Shana Roy is a 59 year old female past medical history significant for moderately depressed LV function 40%, history of nonischemic cardiomyopathy status post angiogram in 2016, hypertension, chronic atrial fibrillation, continuous tobacco abuse for preop clearance for knee surgery underwent echocard iogram which showed severely depressed ejection fraction which has deteriorated from 40% to 20% now. Patient also complaining of worsening of shortness of breath and chest pressure, her surgery is on hold for it. It is the reason since she has no worsening of LV function and chest pressure we decided to proceed with left heart cath. Today patient is here for it. Patient has been explained all risk benefit and alternative for the procedure. She has not taken her apixaban for the last week according to her she ran out of it, she has not informed my office. She has been explained all risk benefit and alternative for the procedure by myself. She would like to proceed with it. Medications/Allergies Home Medications Medication Instructions Recorded Confirmed Last Taken Type aspirin 81 mg chewable tablet 81 mg PO ONCE 03/09/19 10/10/19 10/09/19 07:30 History methotrexate sodium 2.5 mg tablet 15 mg PO .WEEKLY #30 tab 06/03/19 10/07/19 09/04/19 17:00 Rx Rolling walker with seat #1 ea 08/01/19 10/07/19 Unknown Rx furosemide 40 mg tablet 40 mg PO BID #180 tab 08/08/19 10/10/19 10/09/19 07:30 Rx leflunomide 20 mg tablet 20 mg PO DAILY 08/19/19 10/10/19 10/09/19 07:30 History folic acid 1 mg tablet 1 mg PO DAILY tab 09/07/19 10/10/19 10/09/19 07:30 History lisinopril 2.5 mg tablet 2.5 mg PO DAILY tab 09/07/19 10/10/19 10/09/19 07:30 History prednisone 10 mg tablet 10 mg PO DIRECTED PRN tab 09/07/19 10/07/19 Unknown History albuterol sulfate 2 puff INHALATION 6XD PRN 09/19/19 10/07/19 Unknown History gabapentin 400 mg PO TID 09/19/19 10/10/19 10/09/19 16:00 History levmetamfetamine [Vapor Inhaler] 2 inh INTRANASAL BID 09/19/19 10/10/19 10/09/19 16:00 History ondansetron HCl [Zofran] 4 mg PO Q8H 09/19/19 10/07/19 Unknown History apixaban [Eliquis] 5 mg PO BID 10/07/19 10/10/19 09/26/19 History Allergies Allergy/AdvReac Type Severity Reaction Status Date / Time doxacurium Allergy HIVES,RASH Verified 10/07/19 12:09 sulfamethoxazole Allergy ALGY-Rash Verified 10/07/19 12:09 [From Bactrim] trimethoprim [From Bactrim] Allergy ALGY-Rash Verified 10/07/19 12:09 PFSH Acute PFSH: Medical History Atrial fibrillation Edema leg Hypertension Hypotension Nonischemic cardiomyopathy Osteoarthritis Rheumatoid arthritis Family History Father Cancer Mother Cancer Sister Cancer Other CAD (coronary artery disease) Hyperlipidemia Hypertension Lung disease Denies family history of Psychiatric illness Social History Smoking and tobacco status: current every day smoker Alcohol intake: never History of recent travel: No Vitals/I&O/Wt Last Vital Signs Temp 97.7 F 10/10/19 06:47 Pulse 105 H 10/10/19 06:47 Resp 18 10/10/19 06:47 BP 137/87 10/10/19 06:47 Pulse Ox 95 10/10/19 06:47 Physical Exam Narrative: EXAM NARRATIVE: GENERAL: Patient is alert, awake and oriented x3. NECK: No jugular vein distension. HEENT: No cyanosis. No icterus. No pallor. HEART: Regular S1 and S2. No murmur, rub or gallop. LUNGS: Clear to auscultate bilaterally. ABDOMEN: Soft, nontender and nondistended. Positive bowel sounds. No guarding, rebound or tenderness. CENTRAL NERVOUS SYSTEM: Grossly nonfocal. EXTREMITIES: Lower extremities with trace edema bilaterally. A&P Assessment and plan (1) Congestive heart failure with LV diastolic dysfunction, NYHA class 2: Due to worsening of LV function after a drop of ejection fraction from 40% to 20% and because of preop clearance along with worsening of shortness of breath and chest pressure patient will be undergoing left heart cath to rule out obstructive coronary artery disease. Unfortunately she continues to smoke again discussed necessity of quitting smoking. She has history of nonischemic cardiomyopathy and ejection fraction of 40%, last angiogram was in 2016. Since ejection fraction deteriorated from her baseline we decided to proceed with left heart cath. As above she has been explained all risk benefit and alternative for the procedure. Status: Acute (2) Atrial fibrillation: Patient is rate controlled she is not taking anticoagulation advised to take medicine. She understand risk for stroke in case she does not take it. Status: Acute Qualifiers: Atrial fibrillation type: paroxysmal Qualified Code(s): I48.0 - Paroxysmal atrial fibrillation (3) Hypertension: Well-controlled. Continue medicine Status: Acute Qualifiers: Hypertension type: essential hypertension Qualified Code(s): I10 - Essential (primary) hypertension (4) Nonischemic cardiomyopathy: History of nonischemic cardiomyopathy by left heart cath in 2016. Recent drop in ejection fraction with history of continuous tobacco abuse and chest pressure along with worsening of shortness of breath warrant further exploration with left heart cath. Status: Acute Attestations Medical Necessity Statement*: I am not expecting her stay to cross more than 1 midnight. 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
--- NOTE | 2019-10-10 08:01 | PC.NURSE ---
Patient arrived to floor from biology laboratory assistant. 2 nurse verification of site, asymptomatic, TR band in place. Patient denies any pain at this time. see physical assessment. Nurse to continue to monitor.
[2019-10-10] MEDS: lisinopril 2.5 mg Tablet PO (08:59)
[2019-10-10] MEDS: FUROsemide 40 mg Tablet PO (08:59)
[2019-10-10] MEDS: aspirin 81 mg Chew Tablet PO (08:59)
[2019-10-10] MEDS: gabapentin 400 mg Capsule PO ×2 (09:00→14:06)
[2019-10-10] MEDS: ondansetron 4 MG Tablet PO (09:00)
--- NOTE | 2019-10-10 10:15 | PC.CHAP ---
Pastoral Care Encounter/Spiritual Assessment Type of Contact [] Declined space and missile operations visit [] Patient/Family/Request visit [] Outpatient visit [] Follow-up visit [] Physician referral [] Code/Alert [x] Routine visit [] Staff referral [] Actively dying [x] Patient sleeping [] Family support [] [] Out of room [] Palliative care [] [] Receiving care in room [] Pre-surgical visit [] Trauma [] Long length of stay [] ICU visit [] Other: Relational/Emotional Strength [] Patient feels connected with others/family/visitors/staff [] Distress [] Loneliness/isolation [] Abandonment Spirituality of Patient [] Person of Radha [] Attends Catholic of their Radha [] Believes in Prayer [] Reads Bible or Zoroastrianism materials [] There are Spiritual issues to be addressed Welder Apprentice Interventions [] Prayer [] Active listening [] Non-anxious presence [] Spiritual/emotional support [] Crisis/trauma care [] Spiritual counseling [] Bereavement support [] Provided bereavement packet [] Provided Bible/devotional materials [] Provided toy/stuffed animal, coloring book to patient or family member [] Provided Communion [] Anointing/[place] [] Salvation [x] Completed spiritual assessment [] Other: Impact on Illness or Injury [] Angry [] Fearful [] Anxious [] Often cries [] Exhaustion [] Unable to work [] Unable to attend anabaptist [] Unable to walk/stand [] Unable to read [] Unable to drive [] Unable to eat/drink [] Unable to sleep [] Unable to be with family [] Patient intubated [] Other: Summary Time spent with patient
--- NOTE | 2019-10-10 11:51 | PC.NURSE ---
0750 patient received from field laboratory operator Tr band in place no hematoma noted patient oriented to nurse and room.
--- NOTE | 2019-10-10 11:51 | PC.NURSE ---
1015 Tr band removed per protocol, no hematoma formations noted, patient denies any pain at site, clear dressing placed will continue to monitor
--- NOTE | 2019-10-10 14:49 | PC.NURSE ---
Patient discharged home at this time, Discharge instructions given and explained including post angiogram instructions. patient assisted to wheel chair and accompanied by staff to private vehicle and daughter. All belongings and discharge instructions in hand. patient alert and stable.
--- NOTE | 2019-10-12 12:12 | PC.RESP ---
Smoking Cessation information sent to patient.
== END 2019-10-10 14:47 | disposition home or self-care (01) ==
LOC: CSU 07:47
PROVIDERS: Admitting Provider Internal Medicine Cardiovascular Disease; PCP Internal Medicine; Visit Provider Internal Medicine Cardiovascular Disease
DX: I11.0 Hypertensive heart disease with heart failure (principal); I50.30 Unspecified diastolic (congestive) heart failure; I48.0 Paroxysmal atrial fibrillation; I42.8 Other cardiomyopathies; Z79.82 Long term (current) use of aspirin; Z79.52 Long term (current) use of systemic steroids; M19.90 Unspecified osteoarthritis, unspecified site; Z82.49 Family history of ischemic heart disease and other diseases of the circulatory system; F17.210 Nicotine dependence, cigarettes, uncomplicated; E78.5 Hyperlipidemia, unspecified; E66.9 Obesity, unspecified; Z68.29 Body mass index [BMI] 29.0-29.9, adult
CPT/HCPCS: 12345; 36415; 93452; C1769; C1887; C1894; G0378; J1644; J2250; J3010; J3490; J7030; Q0162; Q0163; Q9967

== ENCOUNTER → 2019-10-17 12:17 | Outpatient (BNVA) | payer MEDICARE, MEDICAID, SELFPAY | PROVIDERS: PCP Internal Medicine; Visit Provider Nurse Practitioner Family | DX: I50.30 Unspecified diastolic (congestive) heart failure (principal); F17.210 Nicotine dependence, cigarettes, uncomplicated | CPT/HCPCS: 80048 ==

== ENCOUNTER → 2019-10-28 08:41 | Outpatient (BNVA) | payer MEDICARE, MEDICAID, SELFPAY | PROVIDERS: PCP Internal Medicine; Visit Provider Internal Medicine | DX: Z11.59 Encounter for screening for other viral diseases (principal) | CPT/HCPCS: 87635 ==

== ENCOUNTER 2019-11-05 18:20 | Inpatient (IN) | payer MEDICARE, MEDICAID, SELFPAY ==
--- NOTE | 2019-11-05 18:42 | ECG_ITS ---
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 Measurements Intervals [place] Rate: 185 P: NM: -1 QRS: 70 QRSD: 99 T: 79 QT: 253 QTc: 445 Interpretive Statements SUPRAVENTRICULAR TACHYCARDIA, POSSIBLE ATRIAL FLUTTER MODERATE ST DEPRESSION [0.05+ mV ST DEPRESSION] Compared to ECG 09/19/2019 12:02:38 ST (T wave) deviation now present Sinus tachycardia no longer present T-wave abnormality no longer present Possible ischemia no longer present Electronically Signed On 11-08-2019 17:34:16 CDT by Kayla Olivera M.D. [email or web address]
--- NOTE | 2019-11-05 18:42 | XRR_ITS ---
PROCEDURE INFORMATION: Exam: XR Chest, 1 View Exam date and time: 11/05/2019 7:42 PM Age: 59 years old Clinical indication: Tachypnea; Additional info: Cp TECHNIQUE: Imaging protocol: XR of the chest Views: 1 view. COMPARISON: CR XR chest 1V portable [id number] 03/06/2019 4:03 PM FINDINGS: Lungs: Unremarkable. No consolidation. Pleural space: Unremarkable. No pleural effusion. No pneumothorax. Heart/Mediastinum: Cardiomegaly and pulmonary vascular congestion. Bones/joints: Unremarkable. XR/XR chest 1V portable [id number] IMPRESSION: 1. Negative for infiltrate 2. Cardiomegaly and pulmonary vascular congestion.
[2019-11-05 18:48] VITALS: BP 50/28; PULSE 185; RESP 18; TEMP 36.6; O2SAT 98; BMI 30.2
[2019-11-05] MEDS: adenosine 3 mg/mL SDV 2mL 6 MG IVP (19:01)
[2019-11-05] MEDS: adenosine 3 mg/mL SDV 2mL 12 MG IVP (19:03)
[2019-11-05 19:19] LABS: Lactic Sepsis W/Reflex 2.4 mmol/L (0.5-2.2)
[2019-11-05] MEDS: sodium chloride 0.9% 1,000 ML 999 ML IV ×2 (19:37→20:14)
[2019-11-05] MEDS: midazolam 1 mg/mL INJ 2 mL 2 MG (19:38)
--- NOTE | 2019-11-05 19:57 | ED_ITS ---
HPI - Chest Pain General: Chief Complaint: Chest Pain Stated Complaint: cp Time Seen by Provider: 11/05/19 18:37 History of Present Illness: HPI narrative: 59-year-old lady who is felt ill all day. She notes that she has had chest pain, been sweaty, and generally weak today. Her heart rate was high at home, so she presents to the emergency department. She has a heart rate of 180-190. She has a low blood pressure as well. She continues to experience centralized chest pain, with some shortness of breath. She did not pass out. Associated symptoms: Reports dyspnea, nausea and palpitations; Deny abdominal pain, fever(s) or vomiting Review of Systems Const: Denies: fever(s) or chills Eyes: Reports: blurry vision ENMT: Denies: swelling of lips/tongue, epistaxis, post nasal drip or sinus pain Card: Reports: chest pain, palpitations, irregular heart rhythm, edema, swelling of feet/ankles, dyspnea on exertion and orthopnea Resp: Reports: dyspnea and non-productive cough; Denies: productive cough or wheezing GI: Reports: nausea; Denies: abdominal pain or vomiting : Denies: dysuria, urinary frequency, urinary urgency or hematuria Musc: Denies: neck pain or back pain Skin/Breast: Denies: rash, pruritus or erythema Neuro: Denies: headache(s), dizziness, vertigo or confusion Psych: Denies: anxiety PFSH ED PFSH: Medical History (Updated 11/06/19 @ 04:23 by Bong Raymundo DO) Atrial fibrillation COPD (chronic obstructive pulmonary disease) Edema leg GERD (gastroesophageal reflux disease) History of coronary angiogram Hypertension Hypotension Nonischemic cardiomyopathy Ejection fraction 25% Osteoarthritis Rheumatoid arthritis Tobacco dependency Surgical History (Updated 11/05/19 @ 22:12 by Bubba Page MD) H/O: hysterectomy S/P tonsillectomy Family History Father Cancer Mother Cancer Sister Cancer Other CAD (coronary artery disease) Hyperlipidemia Hypertension Lung disease Denies family history of Psychiatric illness Social History Smoking and tobacco status: current every day smoker Alcohol intake: never History of recent travel: No Physical Exam Const: GENERAL APPEARANCE: in distress and ill appearing ORIENTATION/CONSCIOUSNESS: Yes oriented to person, Yes oriented to place and Yes oriented to time HENMT: COMMON NORMALS: normocephalic, external ears normal and Normal external nose present HEAD & SCALP: normocephalic FACE & SINUS: normal facial exam NOSE: Normal external nose present and No nasal discharge present EXTERNAL EAR: Yes external ears normal Eye: COMMON NORMALS: Equal, round and reactive pupils present, EOMs intact bilaterally and conjunctivae normal EYELID: eyelids normal CONJUNCTIVA: Yes conjunctivae normal PUPIL: Yes Equal, round and reactive pupils present Neck/C-Spine: GENERAL: No tracheal deviation Chest: COMMONS NORMALS: normal inspection of the chest CHEST: No tenderness Resp: COMMON NORMALS: clear to auscultation bilaterally EFFORT & INSPECTION: Yes tachypneic, Yes respiratory distress, No retractions, No uses accessory muscles and No tracheal deviation AUSCULTATION: clear to auscultation bilaterally, no rhonchi, no wheezes and diminished lung sounds Cardio: COMMON NORMALS: regular rhythm RATE: tachycardic (severe) RHYTHM: regular rhythm HEART SOUNDS: no murmurs PERIPHERAL PULSES: radial pulses present (Diminished but present) GI: INSPECTION: No abdominal distension AUSCULTATION: No Hyperactive bowel sounds present and No Hypoactive bowel sounds present PALPATION: No Guarding due to palpation present (GI) and No Rigid due to palpation PERCUSSION: no dullness to percussion and no tympanic to percussion Neuro: SENSORIUM/ORIENTATION: Yes oriented to person, Yes oriented to place and Yes oriented to time Psych: COMMON NORMALS: Normal thought process present THOUGHT PROCESS: Normal thought process present Skin: COMMON NORMALS: no rashes or lesions noted GENERAL SKIN EXAM: no rashes or lesions noted Procedures Procedural Sedation Indication: other (Cardioversion) ASA Class: IV Preparation: color television console monitor applied, pulse oximeter, supplemental O2 applied, suction/airway equipment at bedside and IV secured Midazolam dose (mg): 2 IV Etomidate dose (mg): 10 Patient Tolerated Procedure: well and no complications Complications: none Course Consultations: Consultation #1: Camilo Vital Signs: Vital signs: Vital Signs Temperature 98.3 F 11/06/19 03:51 Pulse Rate 71 11/06/19 03:51 Respiratory Rate 19 H 11/06/19 03:51 Blood Pressure 109/50 11/06/19 03:51 Pulse Oximetry 91 11/06/19 03:51 MDM - Chest Pain MDM Narrative: Medical decision making narrative: 59-year-old female with a history of congestive heart failure and atrial fibrillation. She presents with a heart rate of 1 80-1 90, and a low blood pressure. Initial blood pressure in triage was 53 systolic. 73 systolic in the room. After rapid infusion of some IV fluid her blood pressure was improving. At this point, we tried 6 mg then 12 mg of adenosine for cardioversion for SVT. This was unsuccessful. With continued infusion of fluid, her blood pressure improved to 110 systolic. With this, she was given 15 mg of Cardizem, without any improvement in her rate. Her blood pressure then sank again to the mid 70s systolic, still with a rate of 180. At this point she was sedated briefly with 1 mg Versed, 10 mg of etomidate, and given a single electrocardioversion with 120 J. She converted to a right controlled atrial fibrillation with PVCs, with blood pressures in the 100s to 120 systolic, and a rate of 80-95. She is feeling much better. Conscious sedation was accomplished without any complication. Her pain is much improved. She remains on a Cardizem drip at 10. Lab Data: Labs: Lab Results 11/05/19 11/05/19 11/05/19 Range/Units 18:50 18:50 18:50 WBC 12.9 H (4.0-10.0) 10^3/ uL RBC 5.07 (4.1-5.3) 10^6/u L Hgb 14.5 (11.5-15.3) g/dL Hct 46.6 (37.0-47.0) % MCV 91.9 (81-99) fL MCH 28.6 (28.0-34.0) pg MCHC 31.1 (30.0-36.0) g/dL RDW 16.9 H (12.1-15.1) % Plt Count 339 (130-400) 10^3/c mm MPV 11.5 H (7.4-10.4) fL Neut % (Auto) 74.3 % Lymph % (Auto) 18.1 % Winn % (Auto) 6.6 % Eos % (Auto) 0.0 % Baso % (Auto) 0.3 % Neut # (Auto) 9.60 H (1.8-7.7) 10^3/u L Lymph # (Auto) 2.3 (0.8-4.8) 10^3/u L Winn # (Auto) 0.9 (0.2-0.9) 10^3/u L Eos # (Auto) 0.0 (0.0-0.8) 10^3/u L Baso # (Auto) 0.0 (0.0-0.1) 10^3/u L Nucleated RBC % (a uto) 0 % Nucleated RBCs # 0.0 /100WBC PT 11.90 L (12.1-14.9) SECO NDS INR 0.85 (0.8-1.2) APTT 24.2 (23.9-36.7) SECO NDS Sodium 141 (136-145) mmol/L Potassium 4.9 (3.5-5.1) mmol/L Chloride 101 (98-107) mmol/L Carbon Dioxide 29 (22-29) mmol/L Anion Gap 15.9 (5-19) BUN 26 H (8-23) mg/dL Creatinine 1.0 H (0.5-0.9) mg/dL GFR Calculation 56.4 L (90-130) mL/min Glucose 138 H (65-115) mg/dL Calculated Osmolal ity 291 (285-295) mOsm/k g Lactic Acid (0.5-2.2) mmol/L Calcium 9.1 (8.5-10.5) mg/dL Magnesium (1.7-2.3) mg/dL Total Bilirubin 0.2 (0.15-1.2) mg/dL AST 55 H (0-32) U/L ALT 65 H (0-33) U/L Alkaline Phosphata se 201 H (35-105) IU/L Creatine Kinase 33 (26-192) U/L Troponin T Baselin e (0-10) ng/L Troponin T 120 Min [place] (0-10) ng/L Delta Troponin T (0-10) ABS# NT-Pro-B Natriuret Pep 5401 H (0-125) pg/mL Total Protein 7.6 (6.6-8.7) g/dL Albumin 3.9 (3.5-5.2) g/dL Globulin 3.7 (1.3-4.6) g/dL TSH (0.27-4.20) uIU/ mL Urine Color (Yellow) Urine Appearance (CLEAR) Urine pH (5-7) Ur Specific Gravit y (1.005-1.030) Urine Protein (Negative) Urine Glucose (UA) (Normal) Urine Ketones (Negative) Urine Blood (Negative) Urine Nitrate (Negative) Urine Bilirubin (NEGATIVE) Urine Urobilinogen (Negative) mg/dL Ur Leukocyte Lula ase (Negative) Urine RBC (0-2) /hpf Urine WBC (0-5) /hpf Ur Squamous Epith Cells (0-5) Amorphous Sediment Urine Bacteria (NONE) Hyaline Casts Urine Mucus Hepatitis A IgM Ab (Nonreactive) Hep Bs Antigen (Nonreactive) Hep B Core IgM Ab (Nonreactive) Hepatitis C Antibo dy (Nonreactive) 11/05/19 11/05/19 11/05/19 Range/Units 18:50 18:50 18:50 WBC (4.0-10.0) 10^3/ uL RBC (4.1-5.3) 10^6/u L Hgb (11.5-15.3) g/dL Hct (37.0-47.0) % MCV (81-99) fL MCH (28.0-34.0) pg MCHC (30.0-36.0) g/dL RDW (12.1-15.1) % Plt Count (130-400) 10^3/c mm MPV (7.4-10.4) fL Neut % (Auto) % Lymph % (Auto) % Winn % (Auto) % Eos % (Auto) % Baso % (Auto) % Neut # (Auto) (1.8-7.7) 10^3/u L Lymph # (Auto) (0.8-4.8) 10^3/u L Winn # (Auto) (0.2-0.9) 10^3/u L Eos # (Auto) (0.0-0.8) 10^3/u L Baso # (Auto) (0.0-0.1) 10^3/u L Nucleated RBC % (a uto) % Nucleated RBCs # /100WBC PT (12.1-14.9) SECO NDS INR (0.8-1.2) APTT (23.9-36.7) SECO NDS Sodium (136-145) mmol/L Potassium (3.5-5.1) mmol/L Chloride (98-107) mmol/L Carbon Dioxide (22-29) mmol/L Anion Gap (5-19) BUN (8-23) mg/dL Creatinine (0.5-0.9) mg/dL GFR Calculation (90-130) mL/min Glucose (65-115) mg/dL Calculated Osmolal ity (285-295) mOsm/k g Lactic Acid 2.4 H (0.5-2.2) mmol/L Calcium (8.5-10.5) mg/dL Magnesium 2.5 H (1.7-2.3) mg/dL Total Bilirubin (0.15-1.2) mg/dL AST (0-32) U/L ALT (0-33) U/L Alkaline Phosphata se (35-105) IU/L Creatine Kinase (26-192) U/L Troponin T Baselin e 28 H (0-10) ng/L Troponin T 120 Min [place] (0-10) ng/L Delta Troponin T (0-10) ABS# NT-Pro-B Natriuret Pep (0-125) pg/mL Total Protein (6.6-8.7) g/dL Albumin (3.5-5.2) g/dL Globulin (1.3-4.6) g/dL TSH 0.93 (0.27-4.20) uIU/ mL Urine Color (Yellow) Urine Appearance (CLEAR) Urine pH (5-7) Ur Specific Gravit y (1.005-1.030) Urine Protein (Negative) Urine Glucose (UA) (Normal) Urine Ketones (Negative) Urine Blood (Negative) Urine Nitrate (Negative) Urine Bilirubin (NEGATIVE) Urine Urobilinogen (Negative) mg/dL Ur Leukocyte [place] ase (Negative) Urine RBC (0-2) /hpf Urine WBC (0-5) /hpf Ur Squamous Epith Cells (0-5) Amorphous Sediment Urine Bacteria (NONE) Hyaline Casts Urine Mucus Hepatitis A IgM Ab (Nonreactive) Hep Bs Antigen (Nonreactive) Hep B Core IgM Ab (Nonreactive) Hepatitis C Antibo dy (Nonreactive) 11/05/19 11/05/19 11/05/19 Range/Units 18:50 20:52 21:03 WBC (4.0-10.0) 10^3/ uL RBC (4.1-5.3) 10^6/u L Hgb (11.5-15.3) g/dL Hct (37.0-47.0) % MCV (81-99) fL MCH (28.0-34.0) pg MCHC (30.0-36.0) g/dL RDW (12.1-15.1) % Plt Count (130-400) 10^3/c mm MPV (7.4-10.4) fL Neut % (Auto) % Lymph % (Auto) % Winn % (Auto) % Eos % (Auto) % Baso % (Auto) % Neut # (Auto) (1.8-7.7) 10^3/u L Lymph # (Auto) (0.8-4.8) 10^3/u L Winn # (Auto) (0.2-0.9) 10^3/u L Eos # (Auto) (0.0-0.8) 10^3/u L Baso # (Auto) (0.0-0.1) 10^3/u L Nucleated RBC % (a uto) % Nucleated RBCs # /100WBC PT (12.1-14.9) SECO NDS INR (0.8-1.2) APTT (23.9-36.7) SECO NDS Sodium (136-145) mmol/L Potassium (3.5-5.1) mmol/L Chloride (98-107) mmol/L Carbon Dioxide (22-29) mmol/L Anion Gap (5-19) BUN (8-23) mg/dL Creatinine (0.5-0.9) mg/dL GFR Calculation (90-130) mL/min Glucose (65-115) mg/dL Calculated Osmolal ity (285-295) mOsm/k g Lactic Acid (0.5-2.2) mmol/L Calcium (8.5-10.5) mg/dL Magnesium (1.7-2.3) mg/dL Total Bilirubin (0.15-1.2) mg/dL AST (0-32) U/L ALT (0-33) U/L Alkaline Phosphata se (35-105) IU/L Creatine Kinase (26-192) U/L Troponin T Baselin e (0-10) ng/L Troponin T 120 Min [place] 26.95 H (0-10) ng/L Delta Troponin T -1.05 L (0-10) ABS# NT-Pro-B Natriuret Pep (0-125) pg/mL Total Protein (6.6-8.7) g/dL Albumin (3.5-5.2) g/dL Globulin (1.3-4.6) g/dL TSH (0.27-4.20) uIU/ mL Urine Color Yellow (Yellow) Urine Appearance Sl hazy (CLEAR) Urine pH 5 (5-7) Ur Specific Gravit y 1.025 (1.005-1.030) Urine Protein Trace (Negative) Urine Glucose (UA) Norm (Normal) Urine Ketones 1+ H (Negative) Urine Blood Neg (Negative) Urine Nitrate Negative (Negative) Urine Bilirubin Neg (NEGATIVE) Urine Urobilinogen 1 H (Negative) mg/dL Ur Leukocyte [place] Trace H (Negative) Urine RBC 0-4 H (0-2) /hpf Urine WBC 0-4 H (0-5) /hpf Ur Squamous Epith Cells 15-25 H (0-5) Amorphous Sediment Not Reportable Urine Bacteria 2+ H (NONE) Hyaline Casts 0-4 H Urine Mucus 2+ Hepatitis A IgM Ab Non-reactive (Nonreactive) Hep Bs Antigen Non-reactive (Nonreactive) Hep B Core IgM Ab Reactive H (Nonreactive) Hepatitis C Antibo dy Non-reactive (Nonreactive) Critical Care Time Critical Care Time: Critical Care Time: Yes Total Critical Care Time: 60 Attestation: This case had a high probability of a clinically significant, sudden, or life threatening deterioration of this patient's condition which required my full and direct attention, intervention and personal management. Discharge Plan Discharge Patient Disposition: Admitted As Inpatient Admit Provider: Bubba Page Clinical Impression: SVT (supraventricular tachycardia), Cardiogenic shock Pulmonary edema Qualifiers: Chronicity: acute Qualified Code(s): J81.0 - Acute pulmonary edema Condition: Stable Interventions: ED Discharge Assessment Last Done: 11/05/19 23:17 ED Charges Last Done: 11/05/19 23:17 Discharge Date/Time: 11/05/19 23:43 Coding Level of Care Code ED Button Facing Machine Operator for Chg Fwd Exam Comprehensive
[2019-11-05 20:13] LABS: Basophils % 0.3 %; Hematocrit 46.6 % (37.0-47.0); Hemoglobin 14.5 g/dL (11.5-15.3); Lymphocytes # 2.3 10^3/uL (0.8-4.8); Lymphocytes % 18.1 %; Mean Corpuscular HGB Conc 31.1 g/dL (30.0-36.0); Mean Corpuscular Hemoglobin 28.6 pg (28.0-34.0); Mean Corpuscular Volume 91.9 fL (81-99); Mean Platelet Volume 11.5 fL (7.4-10.4); Monocytes # 0.9 10^3/uL (0.2-0.9); Monocytes % 6.6 %; Neutrophils % 74.3 %; Nucleated Red Blood Cells % 0 %; Platelet Count 339 10^3/cmm (130-400); Red Blood Count 5.07 10^6/uL (4.1-5.3); Red Cell Distribution Width 16.9 % (12.1-15.1); White Blood Count 12.9 10^3/uL (4.0-10.0)
[2019-11-05 20:15] VITALS: BP 117/79; PULSE 86; RESP 16; O2SAT 97
[2019-11-05 20:28] LABS: INR 0.85 (0.8-1.2); Partial Thromboplastin Time 24.2 SECONDS (23.9-36.7)
[2019-11-05 20:41] LABS: Alanine Aminotransferase 65 U/L (0-33); Albumin Level 3.9 g/dL (3.5-5.2); Alkaline Phosphatase 201 IU/L (35-105); Aspartate Amino Transferase 55 U/L (0-32); Blood Urea Nitrogen 26 mg/dL (8-23); Calcium 9.1 mg/dL (8.5-10.5); Carbon Dioxide 29 mmol/L (22-29); Chloride 101 mmol/L (98-107); Creatine Phosphokinase 33 U/L (26-192); Globulin 3.7 g/dL (1.3-4.6); Glomerular Filtration Rate 56.4 mL/min (90-130); Glucose 138 mg/dL (65-115); NT Pro B Type Natriuretic Pept 5401 pg/mL (0-125); Osmolality Calculated 291 mOsm/kg (285-295); Sodium 141 mmol/L (136-145); Total Bilirubin 0.2 mg/dL (0.15-1.2); Total Protein 7.6 g/dL (6.6-8.7)
--- NOTE | 2019-11-05 20:42 | ECG_ITS ---
[facility] Test Date: 2019-11-05 Pat Name: Shana Roy Department: Room: Gender: Female Electrotyper: : 1960 Requested By: Bong Alan Order Number: [id number] Patty MD: Kayla Olivera M.D. Measurements Intervals [place] Rate: 90 P: 54 AK: 146 QRS: 69 QRSD: 110 T: 91 QT: 380 QTc: 467 Interpretive Statements SINUS RHYTHM WITH FREQUENT SUPRAVENTRICULAR PREMATURE COMPLEXES NONSPECIFIC ST & T-WAVE ABNORMALITY ABNORMAL RHYTHM ECG Compared to ECG 09/19/2019 12:02:38 Sinus tachycardia no longer present Possible ischemia no longer present T-wave abnormality still present Electronically Signed On 11-08-2019 17:41:19 CDT by Kayla Olivera M.D. [id number]
[2019-11-05 20:46] LABS: Anion Gap 15.9 (5-19)
[2019-11-05 20:47] LABS: Potassium 4.9 mmol/L (3.5-5.1); Reflex Lactate Order REFLEX LACTIC ORDERD
[2019-11-05 20:58] LABS: Troponin(5th) Baseline 28 ng/L (0-10)
[2019-11-05 21:23] LABS: Troponin 5 2HR 26.95 ng/L (0-10)
[2019-11-05 21:28] LABS: Troponin 5 2HR Delta -1.05 ABS# (0-10)
[2019-11-05] MEDS: digoxin 250 mcg/ml INJ 2 mL 500 MCG IVP (21:43)
[2019-11-05 21:44] VITALS: BP 105/69; PULSE 88; RESP 20; O2SAT 97
[2019-11-05 21:45] VITALS: BP 105/69; PULSE 87; RESP 18; O2SAT 97
--- NOTE | 2019-11-05 22:06 | P.HP_ITS ---
Providers/Chief Complaint Primary Care Provider: Geovanna Hernandez MD Chief Complaint: cp History of Present Illness Shana Roy is a 59 year old female presenting to the emergency department with complaints of shortness of breath, elevated heart rate back pain, nausea and sweating. Symptoms actually started this morning at 2:30 AM. She thought they might go away as they did 6 months ago when her heart rate was 160. However they did not in with her heart rate of 1 60-1 80 she came into the emergency department late this afternoon. She reports she developed a cough as this went on during the day. She denied any fever. She has had no COVID, or history of exposure. She has had a negative COVID test with a recent angiogram on October 19 which demonstrated no significant atherosclerotic coronary disease. EF is approximately 25% at that time. No vomiting. No blood in stool or black or tarry stool. Currently on prednisone 20 mg a day and has for the last 2 months for her rheumatoid arthritis as she is off methotrexate. No other recent change in medications. She has been compliant with her carvedilol. While in the emergency department she was hypotensive with a markedly elevated heart rate. Adenosine, Cardizem bolus did not work so she was cardioverted. She is now on a diltiazem drip, and in sinus rhythm. Secondary to her significantly low EF, history of low blood pressure on admission, and low blood pressure now after cardioversion on Cardizem drip I had the emergency department give her 500 mcg of digoxin IV. Review of Systems General: Reports: 10 or more systems reviewed and unremarkable except in HPI and below Const: Denies: fever(s) or chills Eyes: Denies: change in vision ENMT: Denies: throat pain Card: Reports: palpitations and dyspnea on exertion; Denies: chest pain Resp: Reports: dyspnea and non-productive cough GI: Reports: nausea; Denies: abdominal pain or vomiting : Denies: flank pain Musc: Denies: neck pain Skin/Breast: Denies: rash Neuro: Denies: headache(s) Psych: Denies: anxiety Endo: Denies: polyuria Carlos/Lymph: Denies: easy bruising All/Imm: Denies: urticaria Medications/Allergies Home Medications Medication Instructions Recorded Confirmed Last Taken Type aspirin 81 mg chewable tablet 81 mg PO DAILY 01/10/1910/27/19 10/09/19 07:30 History Rolling walker with seat #1 ea 08/01/19 10/27/19 Unknown Rx furosemide 40 mg tablet 40 mg PO BID #180 tab 08/08/19 10/27/19 10/09/19 07:30 Rx leflunomide 20 mg tablet 20 mg PO DAILY 08/19/19 10/27/19 10/09/19 07:30 History folic acid 1 mg tablet 1 mg PO DAILY tab 09/07/19 10/27/19 10/09/19 07:30 History lisinopril 2.5 mg tablet 2.5 mg PO DAILY tab 09/07/19 10/27/19 10/09/19 07:30 History albuterol sulfate 2 puff INHALATION 6XD PRN 09/19/19 10/27/19 Unknown History gabapentin 400 mg PO TID 09/19/19 10/27/19 10/09/19 16:00 History ondansetron HCl [Zofran] 4 mg PO Q8H 09/19/19 10/27/19 Unknown History Eliquis 5 mg PO BID #180 tab 10/10/19 10/27/19 10/23/19 Rx carvedilol [Coreg] 3.125 mg PO BID #60 tab 10/10/19 10/27/19 Unknown Rx diclofenac sodium 1 % topical gel 2 gm TOPICAL QID PRN gm 10/17/19 10/27/19 Unknown History omeprazole 40 mg capsule,delayed 40 mg PO DAILY cap 10/17/19 10/27/19 Unknown History release methotrexate sodium 15 mg PO DIRECTED 10/27/19 10/27/19 08/04/19 History prednisone 40 mg PO BID 10/27/19 10/27/19 Unknown History Allergies Allergy/AdvReac Type Severity Reaction Status Date / Time doxacurium Allergy HIVES,RASH Verified 10/27/19 09:13 sulfamethoxazole Allergy ALGY-Rash Verified 10/27/19 09:13 [From Bactrim] trimethoprim [From Bactrim] Allergy ALGY-Rash Verified 10/27/19 09:13 PFSH Acute PFSH: Medical History (Updated 11/05/19 @ 22:17 by Bubba Page MD) Atrial fibrillation COPD (chronic obstructive pulmonary disease) Edema leg GERD (gastroesophageal reflux disease) History of coronary angiogram Hypertension Hypotension Nonischemic cardiomyopathy Ejection fraction 25% Osteoarthritis Rheumatoid arthritis Tobacco dependency Surgical History (Updated 11/05/19 @ 22:12 by Bubba Page MD) H/O: hysterectomy S/P tonsillectomy Family History Father Cancer Mother Cancer Sister Cancer Other CAD (coronary artery disease) Hyperlipidemia Hypertension Lung disease Denies family history of Psychiatric illness Social History Smoking and tobacco status: current every day smoker Alcohol intake: never History of recent travel: No Vitals/I&O/Wt Last Vital Signs Temp 97.8 F 11/05/19 18:48 Pulse 87 11/05/19 21:45 Resp 18 11/05/19 21:45 BP 105/69 11/05/19 21:45 Pulse Ox 97 11/05/19 21:45 11/05/19 11/05/19 11/05/19 06:59 14:59 22:59 Intake Total 616.05 / 616.05 Balance 616.05 / 616.05 Weight last 48 hrs Weight 84.822 kg Physical Exam Narrative: EXAM NARRATIVE: General exam is a white female, in no apparent distress, in sinus rhythm with a heart rate of 75 HEENT: Pupils equally round. Oropharynx clear. Neck is supple no lymphadenopathy or thyromegaly Cardiovascular regular rate and rhythm with frequent premature beats. No murmur Lungs a few faint expiratory wheezes. Diminished breath sounds bilaterally Abdomen is soft nontender with positive bowel sounds. No obvious organomegaly was deferred Extremities no cyanosis clubbing , cap refill brisk. Trace edema is noted Skin no rash Neuro no obvious focal deficits. Data : 11/05/19 18:50 11/05/19 18:50 Micro: Microbiology 11/05/19 18:58 Blood Culture - Preliminary Blood SPECIMEN COLLECTED 11/05/19 18:50 Blood Culture - Preliminary Blood SPECIMEN COLLECTED Other data: Lactic acid 2.4. AST 55, ALT 65, alk phos 201. Troponin XX 8 with repeat 27 Urinalysis pending Chest x-ray by my read, mild congestion, COPD EKG done on admission demonstrated a heart rate of 185, normal axis. From my understanding, after adenosine a flutter was noted. A&P Assessment and plan (1) Atrial flutter: Rapid ventricular rate noted on arrival to the emergency department with heart rate 1 60-1 80 and patient symptomatic. This did not improve with adenosine, or Cardizem bolus so she was cardioverted. Continue Eliquis for anticoagulation Continue patient's carvedilol currently but consider increasing this if tolerated by blood pressure She is currently on a Cardizem drip. We will continue currently but I am worried about hypotension that may develop. Secondary to low EF, concern of hypotension as patient is already borderline, we will administered 500 mcg of digoxin IV now and consider transition to oral tomorrow Wean off Cardizem as tolerated Status: Acute (2) CHF (congestive heart failure): Symptoms of shortness of breath associated with fast heart rate and like Dandre acute pulmonary edema secondary to low EF and rapid heart rate is resolving. Continue her home Lasix. Note that last echocardiogram, recent, demonstrated EF of 20%, 25% on angiogram and that angiogram did not demonstrate any evidence of atherosclerotic coronary disease. Status: Acute (3) Transaminitis: Likely secondary to hepatic congestion however, check hepatitis panel Status: Acute (4) Leukocytosis: No evidence of infection currently. Still awaiting urinalysis Status: Acute (5) Tobacco dependency: Counseled 3 to 5 minutes abstinence Status: Acute Additional A&P Information COPD, no evidence of significant exacerbation currently. Will add DuoNeb as needed Rheumatoid arthritis. Continue patient's home prednisone GERD, continue home medications Multiple other medical problems as outlined in past medical history Full code Patient's Eliquis will suffice for DVT prophylaxis Attestations Medical Necessity Statement*: Will need less than 2 midnight stay for evaluation and treatment secondary to presentation with atrial flutter with rapid ventricular rate requiring cardioversion. Time Spent in Patient Care: Greater than 35 minutes Coding Level of Care Code Acute Hydrate Thickener Operator for Kishan Sandhu Diagnoses Atrial flutter I48.92 CHF (congestive heart failure) I50.9 Transaminitis R74.0 Leukocytosis D72.829 Tobacco dependency F17.200
[2019-11-05 22:27] VITALS: BP 114/79; PULSE 72; RESP 19; O2SAT 94
[2019-11-05 22:36] LABS: Bilirubin Urine Neg (NEGATIVE); Blood Urine Neg (Negative); Glucose Urine UA Norm (Normal); Ketones Urine 1+ (Negative); Nitrate Urine Negative (Negative); Protein Urine Trace (Negative); Specific Gravity, Urine 1.025 (1.005-1.030); Urine Appearance SL Hazy (CLEAR); Urine Color Yellow (Yellow); pH Urine 5 (5-7)
[2019-11-05 22:37] LABS: Add Urine Microscopic? YES; Leukocyte Esterase Urine Trace (Negative); Urobilinogen Urine 1 mg/dL (Negative)
[2019-11-05 22:40] LABS: Add Urine Culture? No; Bacteria Urine 2+; Hyaline Casts Urine 0-4; Mucus Urine 2+; RBC Urine 0-4 /hpf (0-2); Squamous Epithelial Cell Urine 15-25 (0-5); WBC Urine 0-4 /hpf (0-5)
[2019-11-05 23:17] VITALS: BP 121/71; BP 126/67; PULSE 70; PULSE 77; RESP 16; RESP 21; TEMP 36.4; O2SAT 94; O2SAT 99
--- NOTE | 2019-11-05 23:58 | PC.NURSE ---
Patient admitted to room 101. Patient is alert and oriented x4. Patient oriented to the room and call light placed within reach. Bed in low position. Patient placed on telemetry and vitals obtained. Will continue to monitor.
[2019-11-06] VITALS (10 sets, daily range): BP systolic 103–136; BP diastolic 50–73; PULSE 54–105; RESP 16–20; TEMP 36.5–36.9; O2SAT 91–96
[2019-11-06 00:04] LABS: Magnesium 2.5 mg/dL (1.7-2.3); Thyroid Stimulating Hormone 0.93 uIU/mL (0.27-4.20)
--- NOTE | 2019-11-06 00:42 | ECG_ITS ---
[facility] Test Date: 2019-11-05 Pat Name: Shana Roy Department: Room: 101 Gender: Female Insurance Attorney: : 1960 Requested By: Bong Alan Order Number: [id number] Patty MD: Kayla Olivera M.D. Measurements Intervals [employer] Rate: 89 P: 11 CO: 144 QRS: 68 QRSD: 99 T: 156 QT: 363 QTc: 443 Interpretive Statements SINUS RHYTHM WITH FREQUENT SUPRAVENTRICULAR PREMATURE COMPLEXES NONSPECIFIC T-WAVE ABNORMALITY Compared to ECG 11/05/2019 19:29:48 No significant changes Electronically Signed On 11-07-2019 8:28:35 CDT by Kayla Olivera M.D. [id number] f
[2019-11-06 01:49] LABS: Alanine Aminotransferase 60 U/L (0-33); Albumin Level 2.9 g/dL (3.5-5.2); Alkaline Phosphatase 147 IU/L (35-105); Aspartate Amino Transferase 45 U/L (0-32); Blood Urea Nitrogen 22 mg/dL (8-23); Calcium 7.9 mg/dL (8.5-10.5); Carbon Dioxide 26 mmol/L (22-29); Chloride 104 mmol/L (98-107); Globulin 2.7 g/dL (1.3-4.6); Glomerular Filtration Rate 85.1 mL/min (90-130); Glucose 122 mg/dL (65-115); Magnesium 2.1 mg/dL (1.7-2.3); Osmolality Calculated 284 mOsm/kg (285-295); Sodium 138 mmol/L (136-145); Total Bilirubin 0.2 mg/dL (0.15-1.2); Total Protein 5.6 g/dL (6.6-8.7)
[2019-11-06 01:55] LABS: Anion Gap 12.2 (5-19); Basophils # 0.1 10^3/uL (0.0-0.1); Basophils % 0.4 %; Eosinophils % 0.2 %; Hematocrit 38.4 % (37.0-47.0); Hemoglobin 11.5 g/dL (11.5-15.3); Lymphocytes # 3.4 10^3/uL (0.8-4.8); Lymphocytes % 30.6 %; Mean Corpuscular HGB Conc 29.9 g/dL (30.0-36.0); Mean Corpuscular Hemoglobin 28.4 pg (28.0-34.0); Mean Corpuscular Volume 94.8 fL (81-99); Mean Platelet Volume 12.8 fL (7.4-10.4); Monocytes # 0.8 10^3/uL (0.2-0.9); Monocytes % 7.5 %; Neutrophils # 6.75 10^3/uL (1.8-7.7); Neutrophils % 60.7 %; Nucleated Red Blood Cells % 0 %; Platelet Count 83 10^3/cmm (130-400); Red Blood Count 4.05 10^6/uL (4.1-5.3); Red Cell Distribution Width 16.8 % (12.1-15.1); White Blood Count 11.1 10^3/uL (4.0-10.0)
[2019-11-06 01:56] LABS: Potassium 4.2 mmol/L (3.5-5.1)
--- NOTE | 2019-11-06 01:57 | PC.NURSE ---
Called Dr. Lopez called updated on vitals. Confirmed to leave Cardizem drip on until patient gets her morning medications.
[2019-11-06 01:59] LABS: Hepatitis A Antibody IgM Non-Reactive (Nonreactive); Hepatitis B Core IgM Reactive (Nonreactive); Hepatitis B Surface Antigen Non-Reactive (Nonreactive); Hepatitis C Virus Antibody Non-Reactive (Nonreactive)
[2019-11-06 03:13] LABS: Slide Review Slide Review Perform
--- NOTE | 2019-11-06 05:40 | PC.NURSE ---
patient was cardioverted following protocol, VS monitored through entire procedure, crash cart AMBU bag O2 at bedside multiple staff at bedside ,meds given following MD order patient shocked following protocol, VS normalized continued to be monitored until admission
--- NOTE | 2019-11-06 08:00 | PC.NURSE ---
Shift change/Pt is in Sinus Rhythm w/ occasional PVC's Noted pt converted back to SR since night time nanny. Cardizem drip running at 5 mcg/min on left FA IV site. Cardizem drip paused. Pt denies any pain, looked sleepy but asking for breakfast meal. 1000 AM Physician rounding- Notified DrSimin in person on pt's SR w/occasional PVC's on tele and notified on the pt's cardizem drip has been off this morning.
[2019-11-06] MEDS: lisinopril 2.5 mg Tablet PO (09:25)
[2019-11-06] MEDS: FUROsemide 40 mg Tablet PO (09:25)
[2019-11-06] MEDS: predniSONE 20 mg Tablet PO (09:27)
[2019-11-06] MEDS: pantoprazole DR 40 mg Tablet PO (09:27)
[2019-11-06] MEDS: gabapentin 400 mg Capsule PO ×3 (09:27→21:04)
[2019-11-06] MEDS: digoxin 250 mcg Tablet PO (09:28)
[2019-11-06] MEDS: carvedilol 3.125 mg Tablet PO ×2 (09:29→17:59)
[2019-11-06] MEDS: apixaban 5 mg Tablet PO ×2 (09:30→18:00)
[2019-11-06] MEDS: aspirin 81 mg Chew Tablet PO (09:30)
--- NOTE | 2019-11-06 11:47 | PC.CHAP ---
Pastoral Care Encounter/Spiritual Assessment Type of Contact [] Declined power transformer inspector visit [] Patient/Family/Request visit [] Outpatient visit [] Follow-up visit [] Physician referral [] Code/Alert [] Routine visit [] Staff referral [] Actively dying [] Patient sleeping [] Family support [] [] Out of room [] Palliative care [] [xx] Receiving care in room [] Pre-surgical visit [] Trauma [] Long length of stay [] ICU visit [] Other: Relational/Emotional Strength [] Patient feels connected with others/family/visitors/staff [] Distress [] Loneliness/isolation [] Abandonment Spirituality of Patient [] Person of Radha [] Attends Restorationism of their Radha [] Believes in Prayer [] Reads Bible or Uatsdin materials [] There are Spiritual issues to be addressed Director Of Development And Marketing Interventions [] Prayer [] Active listening [] Non-anxious presence [] Spiritual/emotional support [] Crisis/trauma care [] Spiritual counseling [] Bereavement support [] Provided bereavement packet [] Provided Bible/devotional materials [] Provided toy/stuffed animal, coloring book to patient or family member [] Provided Communion [] Anointing/[place] [] Salvation [] Completed spiritual assessment [] Other: Impact on Illness or Injury [] Angry [] Fearful [] Anxious [] Often cries [] Exhaustion [] Unable to work [] Unable to attend hindu [] Unable to walk/stand [] Unable to read [] Unable to drive [] Unable to eat/drink [] Unable to sleep [] Unable to be with family [] Patient intubated [] Other: Summary Time spent with patient
--- NOTE | 2019-11-06 17:54 | P.PN_ITS ---
Subjective Subjective: Interval history: Chart reviewed, in sinus rhythm with intermittent PVCs, mostly rate controlled, has spent much of the day asleep. Seen in the afternoon while daughter is visiting. Daughter is quite concerned about rate control, potential need for oxygen and states that she thinks her mother is having more shortness of breath than normal. Patient is currently on room air, has been hemodynamically stable. Initially was quite insistent on being discharged but following explanation of need for continued telemetry monitoring and need for evaluation for possible oxygen need she is not agreeable to remaining in the hospital overnight. Refused p.m. Lasix dose. Medications: Reviewed: Yes Medication Review Details: Active Medications Generic Name Dose Route Start Last Admin Trade Name Freq PRN Reason Stop Dose Admin Acetaminophen 650 mg 11/05/19 23:17 Tylenol PO Q6H PRN Mild/Mod Pain Or Temp >/= 101 Albuterol/Ipratrop ium 3 ml 11/05/19 23:17 Duoneb INHALATION Q6H.RESPIRATORY P RN SHORTNESS OF NICHOLAS TH Apixaban 5 mg 11/06/19 09:00 11/06/19 09:30 Eliquis PO 5 mg BID RUSSELL Administration Aspirin 81 mg 11/06/19 09:00 11/06/19 09:30 Aspirin Chewable PO 81 mg DAILY RUSSELL Administration Carvedilol 3.125 mg 11/06/19 09:00 11/06/19 09:29 Coreg PO 3.125 mg BID RUSSELL Administration Digoxin 250 mcg 11/06/19 09:00 11/06/19 09:28 Lanoxin PO 250 mcg DAILY RUSSELL Administration Furosemide 40 mg 11/06/19 09:00 11/06/19 09:25 Lasix PO 40 mg BID RUSSELL Administration Gabapentin 400 mg 11/06/19 09:00 11/06/19 14:11 Neurontin PO 400 mg TID RUSSELL Administration Diltiazem HCl 125 mg/ Sodium 125 mls @ 0 mls/h r 11/05/19 19:15 11/06/19 08:00 Chloride IV 0 mg/hr .Q0M RUSSELL 0 mls/hr Titration Protocol Per Protocol Lisinopril 2.5 mg 11/06/19 09:00 11/06/19 09:25 Prinivil PO 2.5 mg DAILY RUSSELL Administration Ondansetron HCl 4 mg 11/05/19 23:17 Zofran IVP Q6H PRN vomiting, or N/V if npo Pantoprazole Sodiu m 40 mg 11/06/19 09:00 11/06/19 09:27 Protonix PO 40 mg DAILY RUSSELL Administration Prednisone 20 mg 11/06/19 09:00 11/06/19 09:27 Prednisone PO 20 mg DAILY RUSSELL Administration doxacurium Allergy (Verified 10/27/19 09:13) HIVES,RASH sulfamethoxazole [From Bactrim] Allergy (Verified 10/27/19 09:13) ALGY-Rash trimethoprim [From Bactrim] Allergy (Verified 10/27/19 09:13) ALGY-Rash Vitals/I&O/Wt Last Vital Signs Temp 98.4 F 11/06/19 15:54 Pulse 90 11/06/19 15:54 Resp 19 H 11/06/19 15:54 BP 129/71 11/06/19 15:54 Pulse Ox 93 11/06/19 15:54 11/06/19 11/06/19 11/06/19 06:59 14:59 22:59 Intake Total 287.167 / 903.217 280.167 / 280.167 Balance 287.167 / 903.217 280.167 / 280.167 Weight last 48 hrs Weight 87.997 kg Weight 87.634 kg Weight 84.822 kg Physical Exam Const: COMMON NORMALS: no acute distress, patient oriented x3 and alert GENERAL APPEARANCE: cooperative and comfortable NUTRITIONAL APPEARANCE: overweight ORIENTATION/CONSCIOUSNESS: Yes awake HENMT: COMMON NORMALS: normocephalic, atraumatic, hearing grossly normal bilaterally and moist oral mucous membranes HEAD & SCALP: normocephalic and atraumatic Eye: COMMON NORMALS: Equal, round and reactive pupils present, EOMs intact bilaterally and conjunctivae normal CONJUNCTIVA: Yes conjunctivae normal PUPIL: Yes Equal, round and reactive pupils present Neck/C-Spine: COMMON NORMALS: full ROM GENERAL: Yes normal visual inspection and Yes trachea midline Resp: COMMON NORMALS: normal respiratory effort, No retractions and No use of accessory muscles EFFORT & INSPECTION: Yes able to speak in complete sentences, Yes symmetric chest movement and No tachypneic AUSCULTATION: diminished lung sounds OTHER: -On room air Cardio: COMMON NORMALS: regular rate, regular rhythm, S1 normal heart sound present, S2 normal heart sound present and No murmurs present (Cardio) RATE: regular rate RHYTHM: regular rhythm HEART SOUNDS: S1 normal heart sound present and S2 normal heart sound present GI: COMMON NORMALS: Normal to inspection, nondistended, normoactive bowel sounds present, Soft to palpation and non-tender INSPECTION: Yes central obesity PALPATION: Yes Soft to palpation Extremity: COMMON NORMALS: normal to inspection, full ROM and no clubbing, cyanosis or edema; negative for no pedal edema Neuro: COMMON NORMALS: patient oriented x3, moves all extremities, no focal motor deficits and no sensory deficits noted SENSORIUM/ORIENTATION: Yes alert Psych: COMMON NORMALS: mental status grossly normal, Normal thought process present, cooperative, normal affect and speech normal SPEECH: Yes normal speech THOUGHT PROCESS: Normal thought process present Skin: COMMON NORMALS: no rashes or lesions noted, no jaundice, no petechiae and no mottling GENERAL SKIN EXAM: no rashes or lesions noted Data : 11/06/19 00:56 11/06/19 00:56 Micro: Microbiology 11/05/19 18:58 Blood Culture - Preliminary Blood SPECIMEN COLLECTED 11/05/19 18:50 Blood Culture - Preliminary Blood SPECIMEN COLLECTED A&P Assessment and plan (1) Atrial fibrillation: -Noted to have symptomatic atrial fibrillation with RVR, required cardioversion in the ER, subsequently converted to sinus rhythm -Has remained in sinus rhythm with some intermittent PVCs throughout the day -Required Cardizem drip which has since been weaned off -On Coreg, digoxin -Continue anticoagulation with Eliquis -Telemetry monitoring -VSS; continue to monitor -Supplemental oxygen as needed Status: Acute Qualifiers: Atrial fibrillation type: paroxysmal Qualified Code(s): I48.0 - P aroxysmal atrial fibrillation (2) CHF (congestive heart failure): -Has known history of combined systolic and diastolic CHF with last echo done in August showing an ejection fraction of 20%, global left ventricular hypokinesis, grade 4 diastolic dysfunction, mild AR, mild TR -Coronary angiogram done in September showed no significant CAD with ejection fraction of 25% -Continue Lasix though she declined evening dose today Status: Chronic Qualifiers: Heart failure type: combined systolic and diastolic Heart failure chronicity: chronic Qualified Code(s): I50.42 - Chronic combined systolic (congestive) and diastolic (congestive) heart failure (3) Tobacco dependency: -Continues to smoke Status: Chronic (4) Hypertension: -Vital signs stable, continue to monitor -Continue oral antihypertensives Status: Chronic Qualifiers: Hypertension type: essential hypertension Qualified Code(s): I10 - Esse ntial (primary) hypertension (5) Nonischemic cardiomyopathy: -As noted above Status: Chronic (6) Rheumatoid arthritis: -Continues to follow-up with rheumatology -Continue steroids -Is pending knee replacement -Pain control as needed Status: Chronic Qualifiers: Rheumatoid arthritis location: multiple sites Rheumatoid factor pres ence: unspecified presence Qualified Code(s): M06.9 - Rheumatoid arthritis, unspecified Additional A&P Information -Obesity: BMI-31 kg/m2 -Transaminitis, noted hepatitis C core IgM anitbody + -dyspnea, home oxygen evaluation prior to d/c -cardiac diet as tolerated -GI ppx with PPI -DVT ppx not needed as on Eliquis -Dispo: home -Code status: FULL code Attestations Medical Necessity Statement*: Patient requires hospitalization for continued telemetry monitoring, hemodynamic status monitoring, adjustments of antiarrhythmics for optimal heart rate control. Time Spent in Patient Care: Greater than 35 minutes (>than 50% of time spent in counselling and/or direct pt care on unit) . Coding Level of Care Code Acute Senior Reservoir Engineer for Chg Fwd Exam Comprehensive Diagnoses Atrial fibrillation I48.0 Atrial fibrillation type: paroxysmal CHF (congestive heart failure) I50.42 Heart failure type: combined systolic and diastolic Heart failure chronicity: chronic Tobacco dependency F17.200 Hypertension I10 Hypertension type: essential hypertension Nonischemic cardiomyopathy I42.8 Rheumatoid arthritis M06.9 Rheumatoid arthritis location: multiple sites Rheumatoid factor presence: unspecified presence
[2019-11-06] MEDS: ipratropium-albuterol 3 mL Neb INHALATION (20:02)
--- NOTE | 2019-11-06 23:48 | PC.NURSE ---
Applied 2L nasal cannula per protocol patient oxygen saturation was maintaining 75 to 80% while sleeping. Walked into patient room patient snoring easily awoken. Patients oxygen saturation came up to 95%. Patient on continous pulse ox and will continue to monitor.
[2019-11-07] VITALS (7 sets, daily range): BP systolic 104–157; BP diastolic 68–86; PULSE 82–105; RESP 17–23; TEMP 36.5–36.6; O2SAT 93–96; BMI 31.3
[2019-11-07] MEDS: ipratropium-albuterol 3 mL Neb INHALATION (08:47)
[2019-11-07] MEDS: FUROsemide 40 mg Tablet PO (08:49)
[2019-11-07] MEDS: gabapentin 400 mg Capsule PO (08:49)
[2019-11-07] MEDS: predniSONE 20 mg Tablet PO (08:50)
[2019-11-07] MEDS: aspirin 81 mg Chew Tablet PO (08:50)
[2019-11-07] MEDS: digoxin 250 mcg Tablet PO (08:50)
[2019-11-07] MEDS: lisinopril 2.5 mg Tablet PO (08:50)
[2019-11-07] MEDS: apixaban 5 mg Tablet PO (08:50)
[2019-11-07] MEDS: pantoprazole DR 40 mg Tablet PO (08:50)
[2019-11-07] MEDS: carvedilol 6.25 mg Tablet PO (08:50)
--- NOTE | 2019-11-07 14:59 | PC.NURSE ---
Patient discharged home at this time self care patient provided and explained discharge instructions to patient; patient verbalized understanding of all instructions including new medications. Ivs discontinued with cath intact and min bleeding noted bandage placed. Patient assisted to wheel chair and accompanied to private vehicle by staff occupied by family. Patient alert oriented and in stable condition.
--- NOTE | 2019-11-07 20:39 | P.PN_ITS ---
Subjective Subjective: Interval history: No acute event overnight.Patient underwent 6 mins walk test this am and based on that she requires no home oxygen.Heart rate has been fairly well controlled on increased dose of Carvedilol and with addition of Digoxin..Total urine output in the last 24h was2.5 L with negative balance of -1.5L.She is ambulating well with SOB. Medications: Reviewed: Yes Vitals/I&O/Wt Last Vital Signs Temp 97.7 F 11/07/19 12:00 Pulse 103 H 11/07/19 14:46 Resp 21 H 11/07/19 14:46 BP 157/86 11/07/19 14:46 Pulse Ox 95 11/07/19 14:46 11/07/19 11/07/19 11/07/19 06:59 14:59 22:59 Intake Total 350 / 990.167 480 / 480 Output Total 500 / 2500 Balance -150 / -1509.833 480 / 480 Weight last 48 hrs Weight 87.997 kg Weight 87.997 kg Weight 87.634 kg Physical Exam Const: COMMON NORMALS: patient oriented x3 HENMT: COMMON NORMALS: normocephalic, atraumatic, hearing grossly normal bilaterally and external ears normal HEAD & SCALP: normocephalic and atraumatic EXTERNAL EAR: Yes external ears normal Eye: COMMON NORMALS: no scleral icterus GENERAL EYE: appearance normal, both eyes and all related structures Chest: COMMONS NORMALS: normal inspection of the chest and normal palpation of entire chest wall CHEST: Yes Symmetrical chest wall rise Resp: COMMON NORMALS: normal respiratory effort, No retractions, No use of accessory muscles and clear to auscultation bilaterally EFFORT & INSPECTION: Yes symmetric chest movement AUSCULTATION: clear to auscultation bilaterally Cardio: COMMON NORMALS: regular rate, regular rhythm, S1 normal heart sound present, S2 normal heart sound present, No gallops present (Cardio), No murmurs present (Cardio), No rub (Cardio) and Peripheral pulses 2+ throughout RATE: regular rate RHYTHM: regular rhythm HEART SOUNDS: S1 normal heart sound present and S2 normal heart sound present PERIPHERAL PULSES: Peripheral pulses 2+ throughout GI: COMMON NORMALS: Normal to inspection, nondistended, normoactive bowel sounds present, Soft to palpation, non-tender, No hepatosplenomegaly present and no masses AUSCULTATION: Yes normoactive bowel sounds PALPATION: Yes Soft to palpation and Yes No hepatosplenomegaly present RECTAL EXAM: deferred : COMMON NORMALS: Yes no CVA tenderness BLADDER/KIDNEY EXAM: Yes no CVA tenderness Back/Pelvis: COMMON NORMALS: no CVA tenderness Extremity: COMMON NORMALS: no clubbing, cyanosis or edema and no pedal edema Neuro: COMMON NORMALS: patient oriented x3 Data : 11/06/19 00:56 11/06/19 00:56 Micro: Microbiology 11/05/19 18:58 Blood Culture - Preliminary Blood NEGATIVE TO DATE 11/05/19 18:50 Blood Culture - Preliminary Blood NEGATIVE TO DATE A&P Assessment and plan (1) Atrial fibrillation with controlled ventricular response: Atrial fibrillation: Admitted with symptomatic atrial fibrillation with RVR, post cardioversion with convertion to sinus rhythm -Has remained in sinus rhythm with some intermittent PVCs throughout the day -Initially on Cardizem drip later swtiched to Coreg and digoxin PO with eliquis for anticogulation. -Telemetry monitoring -VSS; continue to monitor Status: Acute (2) CHF (congestive heart failure): known history of non ischemic combined HFrEF and HFpEF. last echo done in August showing an ejection fraction of 20%, global left ventricular hypokinesis, grade 4 diastolic dysfunction, mild AR, mild TR -Coronary angiogram done in September showed no significant CAD with ejection f raction of 25% -Initially on 40 MG q12 h I.V Lasix daily has been switched to 40 mg q12 oral daily. -Current plan is disscharge her home on same dose of lasix. - Status: Chronic Qualifiers: Heart failure type: combined systolic and diastolic Heart failure chronicity: chronic Qualified Code(s): I50.42 - Chronic combined systolic (congestive) and diastolic (congestive) heart failure (3) Nonischemic cardiomyopathy: No acute intervention. Status: Chronic (4) Hypertension: -Vital signs stable, continue to monitor -Continue oral antihypertensives Status: Chronic Qualifiers: Hypertension type: essential hypertension Qualified Code(s): I10 - Essential (primary) hypertension (5) Rheumatoid arthritis: -Continues to follow-up with rheumatology -Continue steroids -Is pending knee replacement -Pain control as needed Status: Chronic Qualifiers: Rheumatoid arthritis location: multiple sites Rheumatoid factor presence: unspecified presence Qualified Code(s): M06.9 - Rheumatoid arthritis, unspecified Attestations Medical Necessity Statement*: Patient is due for discharge today to home. Other Attestations: -Obesity: BMI-31 kg/m2 -Transaminitis, noted hepatitis C core IgM anitbody + -dyspnea, home oxygen evaluation prior to d/c -cardiac diet as tolerated -GI ppx with PPI -DVT ppx not needed as on Eliquis Coding Level of Care Code Acute Water Resource Project Manager for g Fwd Diagnoses Atrial fibrillation with controlled ventricular response I48.91 CHF (congestive heart failure) I50.42 Heart failure type: combined systolic and diastolic Heart failure chronicity: chronic Nonischemic cardiomyopathy I42.8 Hypertension I10 Hypertension type: essential hypertension Rheumatoid arthritis M06.9 Rheumatoid arthritis location: multiple sites Rheumatoid factor presence: unspecified presence
--- NOTE | 2019-11-07 21:10 | P.DS_ITS ---
Discharge Providers Date of Admission: 11/05/19 19:07 Date of Discharge: November 07, 2019 Attending Provider at Admission: Bubba Page MD Attending Provider at Discharge: Luis Lindo MD Primary Care Provider: Geovanna Hernandez MD Diagnoses at Discharge Discharge Diagnosis (1) Atrial fibrillation with controlled ventricular response: Status: Acute (2) CHF (congestive heart failure): Status: Chronic Qualifiers: Heart failure chronicity: chronic Heart failure type: combined systolic and diastolic Qualified Code(s): I50.42 - Chronic combined systolic (congestive) and diastolic (congestive) heart failure (3) Nonischemic cardiomyopathy: Status: Chronic Problem details: Ejection fraction 25% (4) Hypertension: Status: Chronic Qualifiers: Hypertension type: essential hypertension Qualified Code(s): I10 - Essential (primary) hypertension (5) Rheumatoid arthritis: Status: Chronic Qualifiers: Rheumatoid arthritis location: multiple sites Rheumatoid factor presence: unspecified presence Qualified Code(s): M06.9 - Rheumatoid arthritis, unspecified Reason for Visit Reason for Visit: cp Hospital Course Discharge Summary: 59 y/o F patient with PMH of non ischemic combined systolic and diastolic CHF admitted with symptomatic A. fib with RVR status post cardioversion in the ER with conversion to sinus rhythm. Rate well controlled on uptitrated dose of Coreg to 6.25 twice daily as well as on initiation of digoxin. During this admission under went 6 mins walk test for home oxygen evaluation.She failed to qualify for home oxygen.Currently being discharged in stable condition to home. She has been educated on the side effects of Digoxin.She will follow her PCP as well as her ornamental rail installer as outpatient. Physical Exam Const: COMMON NORMALS: patient oriented x3 HENMT: COMMON NORMALS: normocephalic, atraumatic, hearing grossly normal bilaterally and external ears normal HEAD & SCALP: normocephalic and atraumatic EXTERNAL EAR: Yes external ears normal Eye: COMMON NORMALS: no scleral icterus GENERAL EYE: appearance normal, both eyes and all related structures Chest: COMMONS NORMALS: normal inspection of the chest and normal palpation of entire chest wall CHEST: Yes Symmetrical chest wall rise Resp: COMMON NORMALS: normal respiratory effort, No retractions, No use of accessory muscles and clear to auscultation bilaterally EFFORT & INSPECTION: Yes symmetric chest movement AUSCULTATION: clear to auscultation bilaterally Cardio: COMMON NORMALS: regular rate, regular rhythm, S1 normal heart sound present, S2 normal heart sound present, No gallops present (Cardio), No murmurs present (Cardio), No rub (Cardio) and Peripheral pulses 2+ throughout RATE: regular rate RHYTHM: regular rhythm HEART SOUNDS: S1 normal heart sound present and S2 normal heart sound present PERIPHERAL PULSES: Peripheral pulses 2+ throughout GI: COMMON NORMALS: Normal to inspection, nondistended, normoactive bowel sounds present, Soft to palpation, non-tender, No hepatosplenomegaly present and no masses AUSCULTATION: Yes normoactive bowel sounds PALPATION: Yes Soft to palpation and Yes No hepatosplenomegaly present RECTAL EXAM: deferred : COMMON NORMALS: Yes no CVA tenderness BLADDER/KIDNEY EXAM: Yes no CVA tenderness Back/Pelvis: COMMON NORMALS: no CVA tenderness Extremity: COMMON NORMALS: no clubbing, cyanosis or edema and no pedal edema Neuro: COMMON NORMALS: patient oriented x3 Discharge Data Data Completed and Pending: Completed Studies During Hospitalization Category Date Time Status XR chest 1V dominique ble [id number] Stat Exams 11/05/19 18:42 Completed Pending at discharge Category Date Time Status Blood Culture Sta t Lab 11/05/19 18:58 Results Vitals: Last Vital Signs Temp 97.7 F 11/07/19 12:00 Pulse 103 H 11/07/19 14:46 Resp 21 H 11/07/19 14:46 BP 157/86 11/07/19 14:46 Pulse Ox 95 11/07/19 14:46 Discharge Plan Discharge Patient Disposition: Home Condition: Stable Prescriptions: New digoxin 250 mcg (0.25 mg) Tablet 250 mcg PO DAILY Qty: 30 RF: 0 Continued folic acid 1 mg tablet 1 mg PO DAILY RF: 0 omeprazole 40 mg capsule,delayed release(DR/EC) 40 mg PO DAILY RF: 0 aspirin [Children's Aspirin] 81 mg tablet,chewable 81 mg PO DAILY RF: 0 furosemide [Lasix] 40 mg tablet 40 mg PO BID Qty: 180 RF: 3 prednisone 20 mg Tablet 40 mg PO BID RF: 0 gabapentin 400 mg Capsule 400 mg PO BID RF: 0 ondansetron HCl [Zofran] 4 mg Tablet 4 mg PO Q8H RF: 0 albuterol sulfate 90 mcg/actuation Hfa Aerosol Inhaler 2 puff INHALATION 6XD PRN (Reason: shortness of breath) RF: 0 Eliquis 5 mg Tablet 5 mg PO BID Qty: 180 RF: 4 Changed Coreg 3.125 mg tablet 6.25 mg PO BID Qty: 60 RF: 4 Discharge Orders: Discharge Order (Routine); Ordered 11/07/19 Ordered By: Luis Lindo Referrals: [facility] [Other] (For more information on getting In Home Services, call ([phone]). ) Geovanna Hernandez MD [Primary Care Provider] - 4-7 days ([facility] will be calling to set up a post hospital discharge follow up to be seen in 4 to 7 days. If you don't hear from them by tomorrow afternoon, please gie them a call. Thank you.) Cristel Hayes MD [Physician] - 1 week (She has been started on Digoxin 250 MG PO Daily for uncontrolled A,fib.During this admission.) Discharge Diet: Cardiac and Diabetic Discharge Activity: Increase activity as tolerated Patient Instructions: Digoxin (By mouth), Carvedilol (By mouth), Congestive Heart Failure, Atrial Flutter (DC), Cardioversion (GEN), Chest Pain Stoplight Activity Restrictions/Additional Instructions: Patient has been started on new medication digoxin. I have informed her regar ding the side effects of the drug. She will monitor for any nausea vomiting confusion, any dizziness, any change in vision. She has been asked to follow-up with her ornamental rail installer as an outpatient. She has an appointment in 1 week. Discharge Date/Time: 11/07/19 14:59 Discharge Attestations Time Spent in Discharge Care*: greater than 30 min Quality Metrics Clinical Quality Measures During this hospital stay, did patient experience: None Coding Level of Care Code Acute Finisher Fib[employer]lass Boat Parts for g Fwd Exam Comprehensive Diagnoses Atrial fibrillation with controlled ventricular response I48.91 CHF (congestive heart failure) I50.42 Heart failure chronicity: chronic Heart failure type: combined systolic and diastolic Nonischemic cardiomyopathy I42.8 Hypertension I10 Hypertension type: essential hypertension Rheumatoid arthritis M06.9 Rheumatoid arthritis location: multiple sites Rheumatoid factor presence: unspecified presence
--- NOTE | 2019-11-10 13:09 | PC.RESP ---
Smoking Cessation and Pulmonary rehab information sent to patient.
== END 2019-11-07 14:59 | disposition home or self-care (01) | DRG 309 ==
LOC: ER 18:37 → CSU 22:41
PROVIDERS: Emergency Medicine; Admitting Provider Internal Medicine; PCP Internal Medicine; Visit Provider Internal Medicine
DX: I48.91 Unspecified atrial fibrillation (principal); I50.42 Chronic combined systolic (congestive) and diastolic (congestive) heart failure; I95.9 Hypotension, unspecified; J44.9 Chronic obstructive pulmonary disease, unspecified; K21.9 Gastro-esophageal reflux disease without esophagitis; I11.0 Hypertensive heart disease with heart failure; I42.8 Other cardiomyopathies; M19.90 Unspecified osteoarthritis, unspecified site; M06.9 Rheumatoid arthritis, unspecified; F17.210 Nicotine dependence, cigarettes, uncomplicated; E66.9 Obesity, unspecified; Z68.31 Body mass index [BMI] 31.0-31.9, adult
CPT/HCPCS: 12345; 36415; 71045; 80053; 80074; 81001; 82550; 83605; 83735; 83880; 84443; 84484; 85025; 85610; 85730; 87040; 93005; 94640; 96375; 99283; G0378; J0153; J1160; J2250; J3490; J7030; J7512

== ENCOUNTER 2019-11-11 14:59 | Emergency (ER) | payer MEDICARE, MEDICAID, SELFPAY ==
[2019-11-11 15:10] VITALS: BP 110/73; PULSE 86; RESP 17; TEMP 36.4; O2SAT 96; BMI 28.7
--- NOTE | 2019-11-11 15:59 | W.ED.ARRPALP ---
HPI - Arrhythmia/Palpitations General: Chief Complaint: Arrhythmia/Palpitations Stated Complaint: low hr Time Seen by Provider: 11/11/19 15:39 History of Present Illness: HPI narrative: 59-year-old female was seen over the weekend in SVT and was cardioverted by synchronous cardioversion. She was hospitalized over the weekend and then discharged home she tells me she was started on digoxin and carvedilol. At home today she had a heart rate she reports in the 30s she was short of breath she never had any chest pain states she is feeling much better now all of her symptoms have resolved. MD complaint: irregular heart beat Onset (ago): minute(s) Duration: intermittent and now resolved Severity: mild Context: occurred during rest Arrhythmia history: other (History of SVT with recent starting of multiple negative amount of tropes) Associated symptoms: Reports anxiety; Deny nausea or vomiting Review of Systems Const: Denies: fever(s), chills, body aches, change in appetite, fatigue or malaise ENMT: Denies: throat pain, ear or mastoid pain, nasal discharge or nasal congestion Card: Denies: chest pain, edema, dyspnea on exertion or orthopnea Resp: Denies: dyspnea, productive cough or non-productive cough GI: Denies: abdominal pain, nausea, vomiting, hematemesis, coffee ground emesis, diarrhea, constipation, bloating, hematochezia or melena : Denies: flank pain, difficulty voiding, dysuria, urinary frequency or urinary urgency Skin/Breast: Denies: rash or pruritus Psych: Reports: anxiety [facility] PFSH: Medical History Atrial fibrillation Atrial flutter CHF (congestive heart failure) COPD (chronic obstructive pulmonary disease) Edema leg Emphysema/COPD Fibromyalgia GERD (gastroesophageal reflux disease) History of coronary angiogram Hypertension Hypotension Nonischemic cardiomyopathy Ejection fraction 25% Osteoarthritis Rheumatoid arthritis Sinus tachycardia Tobacco dependency Surgical History H/O: hysterectomy S/P tonsillectomy Family History Father Cancer Mother Cancer Sister Cancer Other CAD (coronary artery disease) Hyperlipidemia Hypertension Lung disease Denies family history of Psychiatric illness Social History Smoking and tobacco status: current every day smoker Alcohol intake: never History of recent travel: No Physical Exam Const: COMMON NORMALS: no acute distress GENERAL APPEARANCE: cooperative and comfortable ORIENTATION/CONSCIOUSNESS: Yes awake, Yes oriented to person, Yes oriented to place and Yes oriented to time HENMT: COMMON NORMALS: normocephalic, atraumatic, hearing grossly normal bilaterally, external ears normal, EAC's normal, TM's normal bilaterally, Normal nasal mucous membranes and turbinates present, moist oral mucous membranes and oropharynx normal HEAD & SCALP: normocephalic and atraumatic NOSE: Normal nasal mucous membranes and turbinates present EXTERNAL EAR: Yes external ears normal EXTERNAL AUDITORY CANAL: EAC's normal TYMPANIC MEMBRANE: TM's normal bilaterally Eye: COMMON NORMALS: Equal, round and reactive pupils present, EOMs intact bilaterally, conjunctivae normal and no scleral icterus CONJUNCTIVA: Yes conjunctivae normal PUPIL: Yes Equal, round and reactive pupils present Neck/C-Spine: COMMON NORMALS: full ROM, no lymphadenopathy, supple and no JVD Lymph: LYMPHATIC: no lymphadenopathy noted and no lymphedema noted Resp: COMMON NORMALS: normal respiratory effort, No retractions, No use of accessory muscles and clear to auscultation bilaterally AUSCULTATION: clear to auscultation bilaterally Cardio: COMMON NORMALS: no JVD, regular rate, regular rhythm and No murmurs present (Cardio) RATE: regular rate RHYTHM: regular rhythm GI: COMMON NORMALS: Soft to palpation and No hepatosplenomegaly present AUSCULTATION: Yes normoactive bowel sounds PALPATION: Yes Soft to palpation, No Tenderness to palpation present (GI), No Guarding due to palpation present (GI) and Yes No hepatosplenomegaly present Extremity: COMMON NORMALS: normal to inspection, capillary refill normal, no clubbing, cyanosis or edema, no calf tenderness and no pedal edema Neuro: SENSORIUM/ORIENTATION: Yes oriented to person, Yes oriented to place and Yes oriented to time Skin: COMMON NORMALS: no rashes or lesions noted GENERAL SKIN EXAM: no rashes or lesions noted Course Vital Signs: Vital signs: Vital Signs Temperature 97.5 F L 11/11/19 15:10 Pulse Rate 86 11/11/19 15:10 Respiratory Rate 17 11/11/19 15:10 Blood Pressure 110/73 11/11/19 15:10 Pulse Oximetry 96 11/11/19 15:10 MDM - Arrhythmia/Palpitations MDM Narrative: Medical decision making narrative: Patient left AMA. I had a been informed by the nurse she was refusing blood work and went talk to her and expressed my concern about the reason started digoxin of her being dig toxic or if her potassium is off and that her medications should be adjusted since she was reporting bradycardia and a pretty significant level she had told me she would stay at expressed to her that if these things were intact it could even potentially be very dangerous or even life-threatening she had expressed understanding of this but then after I left she told the nurse she did not want to stay and she left AGAINST MEDICAL ADVICE signed out the AMA form with the nurse. Discharge Plan Discharge Patient Disposition: Left Against Medical Advice Clinical Impression: Bradycardia Condition: Stable Prescriptions: No Action folic acid 1 mg tablet 1 mg PO DAILY RF: 0 omeprazole 40 mg capsule,delayed release(DR/EC) 40 mg PO DAILY RF: 0 furosemide [Lasix] 40 mg tablet 40 mg PO BID Qty: 180 RF: 3 prednisone 20 mg Tablet 40 mg PO BID RF: 0 carvedilol [Coreg] 3.125 mg tablet 6.25 mg PO BID Qty: 60 RF: 4 digoxin 250 mcg (0.25 mg) Tablet 250 mcg PO DAILY Qty: 30 RF: 0 aspirin 81 mg Tablet,Chewable 81 mg PO DAILY RF: 0 diclofenac sodium 1 % gel 4 g TOPICAL QID PRN (Reason: Pain) RF: 0 Vicks VapoInhaler Inhaler 1 inh INTRANASAL TID RF: 0 gabapentin 400 mg Capsule 400 mg PO TID PRN (Reason: unknown) RF: 0 albuterol sulfate 90 mcg/actuation Hfa Aerosol Inhaler 2 puff INHALATION 6XD PRN (Reason: shortness of breath) RF: 0 Eliquis 5 mg Tablet 5 mg PO BID Qty: 180 RF: 4 Referrals: Geovanna Hernandez MD [Primary Care Provider] - Discharge Date/Time: 11/11/19 16:54 Coding Level of Care Code ED Supervisor [employer] for Chg Fwd Exam Comprehensive
--- NOTE | 2019-11-11 16:03 | XRR_ITS ---
PROCEDURE INFORMATION: Exam: XR Chest, 1 View Exam date and time: 11/11/2019 4:52 PM Age: 59 years old Clinical indication: Cough and dyspnea; Additional info: Dyspnea/cough TECHNIQUE: Imaging protocol: XR of the chest Views: 1 view. COMPARISON: CR XR chest 1V portable [id number] 11/05/2019 7:30 PM FINDINGS: Lungs: Unchanged hyperinflation with probable interstitial fibrosis and scattered calcified granulomata. No consolidation. Pulmonary vascularity is within normal limits. Pleural space: Unremarkable. No pleural effusion. No pneumothorax. Heart/Mediastinum: Unremarkable. No cardiomegaly. Bones/joints: No acute abnormality. XR/XR chest 1V portable [id number] IMPRESSION: No acute findings.
[2019-11-11 16:56] LABS: Basophils # 0.1 10^3/uL (0.0-0.1); Basophils % 0.4 %; Eosinophils # 0.1 10^3/uL (0.0-0.8); Eosinophils % 0.4 %; Hematocrit 44.3 % (37.0-47.0); Hemoglobin 13.9 g/dL (11.5-15.3); Lymphocytes # 1.4 10^3/uL (0.8-4.8); Lymphocytes % 11.2 %; Mean Corpuscular HGB Conc 31.4 g/dL (30.0-36.0); Mean Corpuscular Hemoglobin 28.4 pg (28.0-34.0); Mean Corpuscular Volume 90.6 fL (81-99); Mean Platelet Volume 10.9 fL (7.4-10.4); Monocytes # 0.5 10^3/uL (0.2-0.9); Monocytes % 3.9 %; Neutrophils # 10.74 10^3/uL (1.8-7.7); Neutrophils % 83.6 %; Nucleated Red Blood Cells % 0 %; Platelet Count 274 10^3/cmm (130-400); Red Blood Count 4.89 10^6/uL (4.1-5.3); Red Cell Distribution Width 15.9 % (12.1-15.1); White Blood Count 12.8 10^3/uL (4.0-10.0)
[2019-11-11 17:20] LABS: Alanine Aminotransferase 25 U/L (0-33); Albumin Level 3.4 g/dL (3.5-5.2); Alkaline Phosphatase 203 IU/L (35-105); Anion Gap 13.5 (5-19); Aspartate Amino Transferase 23 U/L (0-32); Blood Urea Nitrogen 17 mg/dL (8-23); Calcium 8.9 mg/dL (8.5-10.5); Carbon Dioxide 29 mmol/L (22-29); Chloride 98 mmol/L (98-107); Globulin 3.5 g/dL (1.3-4.6); Glomerular Filtration Rate 85.1 mL/min (90-130); Glucose 114 mg/dL (65-115); Osmolality Calculated 279 mOsm/kg (285-295); Potassium 4.5 mmol/L (3.5-5.1); Sodium 136 mmol/L (136-145); Total Bilirubin 0.2 mg/dL (0.15-1.2); Total Protein 6.9 g/dL (6.6-8.7)
[2019-11-11 17:27] LABS: Troponin(5th) Baseline 19 ng/L (0-10)
[2019-11-11 18:19] LABS: Digoxin 1.3 ng/mL (0.6-1.2)
== END 2019-11-11 16:54 | disposition left against medical advice (07) ==
PROVIDERS: Emergency Provider Family Medicine; PCP Internal Medicine
DX: R00.1 Bradycardia, unspecified (principal); Z79.01 Long term (current) use of anticoagulants; Z79.82 Long term (current) use of aspirin; Z53.21 Procedure and treatment not carried out due to patient leaving prior to being seen by health care provider; I48.91 Unspecified atrial fibrillation; I11.0 Hypertensive heart disease with heart failure; I50.9 Heart failure, unspecified; J44.9 Chronic obstructive pulmonary disease, unspecified; F17.210 Nicotine dependence, cigarettes, uncomplicated
CPT/HCPCS: 12345; 36415; 71045; 80053; 80162; 84484; 85025; 99281; 99283

== ENCOUNTER 2019-11-20 03:45 | Emergency (ER) | payer MEDICARE, MEDICAID, SELFPAY ==
[2019-11-20] VITALS (44 sets, daily range): BP systolic 68–165; BP diastolic 50–132; PULSE 91–199; RESP 9–43; TEMP 36.8; O2SAT 91–99; BMI 30.7
--- NOTE | 2019-11-20 03:46 | XRR_ITS ---
PROCEDURE INFORMATION: Exam: XR Chest, 1 View Exam date and time: 11/20/2019 3:47 AM Age: 59 years old Clinical indication: Dyspnea; Chest pain; Type not specified; Additional info: Cp TECHNIQUE: Imaging protocol: XR of the chest Views: 1 view. COMPARISON: CR XR chest 1V portable [id number] 11/11/2019 4:42 PM FINDINGS: Lungs: There is some indistinctness of the pulmonary vasculature seen. Increased interstitial markings are present bilaterally. These findings suggest pulmonary edema. Pleural space: Unremarkable. No pleural effusion. No pneumothorax. Heart/Mediastinum: Unremarkable. No cardiomegaly. Bones/joints: Unremarkable. Soft tissues: The transcutaneous pacemaker leads overlie the right upper hemithorax and left lower chest wall. XR/XR chest 1V portable [id number] IMPRESSION: Probable mild pulmonary edema.
--- NOTE | 2019-11-20 03:46 | ECG_ITS ---
[facility] Test Date: 2019-11-20 Pat Name: Shana Roy Department: Room: Gender: Female Rn Labor And Delivery: : 1960 Requested By: Guicho Pitt Order Number: [id number] Patty MD: Ayan Angulo M.D. Measurements Intervals [place] Rate: 105 P: 57 WV: 143 QRS: 70 QRSD: 101 T: 174 QT: 344 QTc: 456 Interpretive Statements ATRIAL FLUTTER POSSIBLE LEFT ATRIAL ENLARGEMENT [-0.1mV P WAVE IN V1/V2] NONSPECIFIC ST & T-WAVE ABNORMALITY Compared to ECG 11/20/2019 05:35:06 Ventricular premature complex(es) no longer present Possible ischemia no longer present T-wave abnormality still present Electronically Signed On 11-21-2019 19:21:22 CDT by Ayan Angulo M.D. [id number]
--- NOTE | 2019-11-20 03:55 | ED_ITS ---
HPI - SOB/Dyspnea General: Chief Complaint: Chest Pain Stated Complaint: cp Time Seen by Provider: 11/20/19 03:49 Source: patient Mode of arrival: ambulatory Limitations: no limitations History of Present Illness: HPI Narrative: 59-year-old female has a history of COPD. She states that tonight she started having shortness of breath wheezing and palpitations. Patient is in obvious distress with tachypnea and wheezing. Patient is also tachycardic. She states this feels like her COPD. She denies any vomiting or diarrhea. She denies any cough or fever. MD elicited complaint: shortness of breath Associated symptoms: Reports chest pain and palpitations; Deny abdominal pain, fever(s), nausea or vomiting Review of Systems Const: Denies: fever(s), chills, body aches or change in appetite Eyes: Denies: blurry vision or eye discomfort ENMT: Denies: throat pain or dental pain Card: Reports: chest pain and palpitations Resp: Reports: dyspnea and wheezing GI: Denies: abdominal pain, nausea, vomiting or diarrhea : Denies: dysuria Musc: Denies: neck pain or back pain Skin/Breast: Denies: rash Neuro: Denies: headache(s) Psych: Denies: depression Carlos/Lymph: Denies: easy bruising All/Imm: Denies: urticaria PFSH ED PFSH: Medical History (Updated 11/20/19 @ 05:29 by Guicho Pitt MD) Atrial fibrillation Atrial flutter CHF (congestive heart failure) COPD (chronic obstructive pulmonary disease) Edema leg Emphysema/COPD Fibromyalgia GERD (gastroesophageal reflux disease) History of coronary angiogram Hypertension Hypotension Nonischemic cardiomyopathy Ejection fraction 25% Osteoarthritis Rheumatoid arthritis Sinus tachycardia Tobacco dependency Surgical History H/O: hysterectomy S/P tonsillectomy Family History Father Cancer Mother Cancer Sister Cancer Other CAD (coronary artery disease) Hyperlipidemia Hypertension Lung disease Denies family history of Psychiatric illness Social History Smoking and tobacco status: current every day smoker Alcohol intake: never History of recent travel: No Physical Exam Const: COMMON NORMALS: patient oriented x3 GENERAL APPEARANCE: in distress HENMT: COMMON NORMALS: normocephalic and atraumatic HEAD & SCALP: normocephalic and atraumatic Eye: COMMON NORMALS: Equal, round and reactive pupils present and EOMs intact bilaterally PUPIL: Yes Equal, round and reactive pupils present Neck/C-Spine: COMMON NORMALS: full ROM and supple Chest: COMMONS NORMALS: normal inspection of the chest and normal palpation of entire chest wall Resp: COMMON NORMALS: No retractions EFFORT & INSPECTION: Yes tachypneic and Yes respiratory distress AUSCULTATION: wheezes Cardio: COMMON NORMALS: No murmurs present (Cardio) RATE: tachycardic RHYTHM: abnormal rhythm GI: COMMON NORMALS: Normal to inspection, nondistended, normoactive bowel sounds present, Soft to palpation, non-tender and no masses PALPATION: Yes Soft to palpation Extremity: COMMON NORMALS: normal to inspection and full ROM Neuro: COMMON NORMALS: patient oriented x3, moves all extremities and no focal motor deficits Psych: COMMON NORMALS: mental status grossly normal, Normal thought process present and cooperative THOUGHT PROCESS: Normal thought process present Skin: COMMON NORMALS: no rashes or lesions noted and no wounds GENERAL SKIN EXAM: no rashes or lesions noted Procedures Intubation Time out performed: Yes sedative: Etomidate Mg Given: 20 paralytic: Succinylcholine Mg Given: 130 Laryngoscope: Elda ET Tube Size: 8 ET Tube Uncuffed: No Tube Secured Depth (cm): 24 Tube Secured Location: lips Tube Placement Confirmation: visualized tube passing through cords, equal breath sounds bilaterally, no breath sounds over epigastrium and confirmation by capnometry Patient Tolerated Procedure: well Intubation Complications: none Course Vital Signs: Vital signs: Vital Signs Temperature 98.3 F 11/20/19 03:51 Pulse Rate 147 H 11/20/19 04:45 Respiratory Rate 28 H 11/20/19 04:45 Blood Pressure 146/95 11/20/19 04:45 Pulse Oximetry 96 11/20/19 04:45 MDM - SOB/Dyspnea MDM Narrative: Medical decision making narrative: Patient presents here with atrial fib with RVR along with COVID-19. Patient's respiratory status Worsening here and her work of breathing had increased. Patient was requiring more oxygen and the decision was made to intubate her due to her distress. Patient went well with no difficulty. Patient was also in A. fib with RVR. Her heart rates were in the 190s originally. Did give her adenosine for possible SVT when she slowed down it was obvious A. fib. Patient given multiple doses of Cardizem with minimal improvement. Patient had been cardioverted here 2 weeks ago and I decided to cardiovert her again due to her heart rate getting back into the 180s after intubation. Heart rate is now 105 after cardioversion. I spoke to [facility] and will transfer there for bed availability as we do not have any viral ICU beds available here. Patient has been stable here after an admission. Lab Data: Labs: Lab Results 11/20/19 11/20/19 11/20/19 Range/Units 04:05 04:10 04:10 WBC 17.9 H (4.0-10.0) 10^3/ uL RBC 4.58 (4.1-5.3) 10^6/u L Hgb 13.4 (11.5-15.3) g/dL Hct 42.4 (37.0-47.0) % MCV 92.6 (81-99) fL MCH 29.3 (28.0-34.0) pg MCHC 31.6 (30.0-36.0) g/dL RDW 16.5 H (12.1-15.1) % Plt Count 301 (130-400) 10^3/c mm MPV 10.8 H (7.4-10.4) fL Neut % (Auto) 68.5 % Lymph % (Auto) 24.7 % [place] % (Auto) 5.5 % Eos % (Auto) 0.2 % Baso % (Auto) 0.4 % Neut # (Auto) 12.24 H (1.8-7.7) 10^3/u L Lymph # (Auto) 4.4 (0.8-4.8) 10^3/u L [place] # (Auto) 1.0 H (0.2-0.9) 10^3/u L Eos # (Auto) 0.0 (0.0-0.8) 10^3/u L Baso # (Auto) 0.1 (0.0-0.1) 10^3/u L Nucleated RBC % (a uto) 0 % Nucleated RBCs # 0.0 /100WBC PT 12.10 (12.1-14.9) SECO NDS INR 0.87 (0.8-1.2) Fibrinogen (174-498) mg/dL D-Dimer (0-0.59) ug/mIFE U Specimen Type Arterial Sample Site Radial, left ABG pH 7.49 H (7.35-7.45) ABG pCO2 40.8 (35-45) mmHg ABG pO2 58.1 L (80.0-100.0) mmH g ABG HCO3 31.3 H (22-26) mmol/L ABG Base Excess 7.4 H (-2.0-2.0) mmol/ L David Test Pos Hematocrit 41.0 (37-47) % Hgb O2 Saturation 90.3 L (95-100) % Carboxyhemoglobin 1.3 (0.4-20.1) %THgb Methemoglobin 0.3 L (0.4-1.5) % Total Hemoglobin 13.4 (12-16) g/dL O2 Delivery Device None FiO2 21.0 % Compliance Representative Dealer ID [id number] Sodium (136-145) mmol/L Potassium (3.5-5.1) mmol/L Chloride (98-107) mmol/L Carbon Dioxide (22-29) mmol/L Anion Gap (5-19) BUN (8-23) mg/dL Creatinine (0.5-0.9) mg/dL GFR Calculation (90-130) mL/min Glucose (65-115) mg/dL Calculated Osmolal ity (285-295) mOsm/k g Calcium (8.5-10.5) mg/dL Total Bilirubin (0.15-1.2) mg/dL AST (0-32) U/L ALT (0-33) U/L Alkaline Phosphata se (35-105) IU/L Troponin T Baselin e (0-10) ng/L NT-Pro-B Natriuret Pep (0-125) pg/mL Total Protein (6.6-8.7) g/dL Albumin (3.5-5.2) g/dL Globulin (1.3-4.6) g/dL Digoxin (0.6-1.2) ng/mL SARS-CoV-2 Ag (Rap id) (Negative) 11/20/19 11/20/1911/19/20 Range/Units 04:10 04:10 04:10 WBC (4.0-10.0) 10^3/ uL RBC (4.1-5.3) 10^6/u L Hgb (11.5-15.3) g/dL Hct (37.0-47.0) % MCV (81-99) fL MCH (28.0-34.0) pg MCHC (30.0-36.0) g/dL RDW (12.1-15.1) % Plt Count (130-400) 10^3/c mm MPV (7.4-10.4) fL Neut % (Auto) % Lymph % (Auto) % [place] % (Auto) % Eos % (Auto) % Baso % (Auto) % Neut # (Auto) (1.8-7.7) 10^3/u L Lymph # (Auto) (0.8-4.8) 10^3/u L [place] # (Auto) (0.2-0.9) 10^3/u L Eos # (Auto) (0.0-0.8) 10^3/u L Baso # (Auto) (0.0-0.1) 10^3/u L Nucleated RBC % (a uto) % Nucleated RBCs # /100WBC PT (12.1-14.9) SECO NDS INR (0.8-1.2) Fibrinogen (174-498) mg/dL D-Dimer (0-0.59) ug/mIFE U Specimen Type Sample Site ABG pH (7.35-7.45) ABG pCO2 (35-45) mmHg ABG pO2 (80.0-100.0) mmH g ABG HCO3 (22-26) mmol/L ABG Base Excess (-2.0-2.0) mmol/ L David Test Hematocrit (37-47) % Hgb O2 Saturation (95-100) % Carboxyhemoglobin (0.4-20.1) %THgb Methemoglobin (0.4-1.5) % Total Hemoglobin (12-16) g/dL O2 Delivery Device FiO2 % Compliance Representative Dealer ID Sodium 138 (136-145) mmol/L Potassium 4.7 (3.5-5.1) mmol/L Chloride 97 L (98-107) mmol/L Carbon Dioxide 30 H (22-29) mmol/L Anion Gap 15.7 (5-19) BUN 17 (8-23) mg/dL Creatinine 0.9 (0.5-0.9) mg/dL GFR Calculation 63.7 L (90-130) mL/min Glucose 136 H (65-115) mg/dL Calculated Osmolal ity 290 (285-295) mOsm/k g Calcium 9.4 (8.5-10.5) mg/dL Total Bilirubin 0.7 (0.15-1.2) mg/dL AST 145 H (0-32) U/L ALT 175 H (0-33) U/L Alkaline Phosphata se 226 H (35-105) IU/L Troponin T Baselin e 66 H (0-10) ng/L NT-Pro-B Natriuret Pep 6785 H (0-125) pg/mL Total Protein 6.8 (6.6-8.7) g/dL Albumin 3.7 (3.5-5.2) g/dL Globulin 3.1 (1.3-4.6) g/dL Digoxin 0.6 (0.6-1.2) ng/mL SARS-CoV-2 Ag (Rap id) (Negative) 11/20/19 11/20/19 Range/Units 04:14 04:27 WBC (4.0-10.0) 10^3/ uL RBC (4.1-5.3) 10^6/u L Hgb (11.5-15.3) g/dL Hct (37.0-47.0) % MCV (81-99) fL MCH (28.0-34.0) pg MCHC (30.0-36.0) g/dL RDW (12.1-15.1) % Plt Count (130-400) 10^3/c mm MPV (7.4-10.4) fL Neut % (Auto) % Lymph % (Auto) % [place] % (Auto) % Eos % (Auto) % Baso % (Auto) % Neut # (Auto) (1.8-7.7) 10^3/u L Lymph # (Auto) (0.8-4.8) 10^3/u L [place] # (Auto) (0.2-0.9) 10^3/u L Eos # (Auto) (0.0-0.8) 10^3/u L Baso # (Auto) (0.0-0.1) 10^3/u L Nucleated RBC % (a uto) % Nucleated RBCs # /100WBC PT (12.1-14.9) SECO NDS INR (0.8-1.2) Fibrinogen 531 H (174-498) mg/dL D-Dimer 19.95 H (0-0.59) ug/mIFE U Specimen Type Sample Site ABG pH (7.35-7.45) ABG pCO2 (35-45) mmHg ABG pO2 (80.0-100.0) mmH g ABG HCO3 (22-26) mmol/L ABG Base Excess (-2.0-2.0) mmol/ L David Test Hematocrit (37-47) % Hgb O2 Saturation (95-100) % Carboxyhemoglobin (0.4-20.1) %THgb Methemoglobin (0.4-1.5) % Total Hemoglobin (12-16) g/dL O2 Delivery Device FiO2 % Compliance Representative Dealer ID Sodium (136-145) mmol/L Potassium (3.5-5.1) mmol/L Chloride (98-107) mmol/L Carbon Dioxide (22-29) mmol/L Anion Gap (5-19) BUN (8-23) mg/dL Creatinine (0.5-0.9) mg/dL GFR Calculation (90-130) mL/min Glucose (65-115) mg/dL Calculated Osmolal ity (285-295) mOsm/k g Calcium (8.5-10.5) mg/dL Total Bilirubin (0.15-1.2) mg/dL AST (0-32) U/L ALT (0-33) U/L Alkaline Phosphata se (35-105) IU/L Troponin T Baselin e (0-10) ng/L NT-Pro-B Natriuret Pep (0-125) pg/mL Total Protein (6.6-8.7) g/dL Albumin (3.5-5.2) g/dL Globulin (1.3-4.6) g/dL Digoxin (0.6-1.2) ng/mL SARS-CoV-2 Ag (Rap id) Positive H (Negative) Imaging Data^: CXR: Attestation: I personally reviewed and interpreted this imaging study as follows: My impression: rll pneumonia EKG Data^: EKG 1: Attestation: I personally reviewed and interpreted this EKG as follows: EKG Interpretation Date: 11/20/19 EKG interpretation time: 03:56 Interpretation: afib with rvr hr [address] abnormalities qrs 104 qtc 335 Critical Care Time Critical Care Time: Critical Care Time: Yes Total Critical Care Time: 36 Attestation: This case had a high probability of a clinically significant, sudden, or life threatening deterioration of this patient's condition which required my full and direct attention, intervention and personal management. Discharge Plan Discharge Patient Disposition: Xfer Other Clinical Impression: COVID-19 Atrial fibrillation Qualifiers: Atrial fibrillation type: unspecified Qualified Code(s): I48.91 - Unspecified atrial fibrillation Condition: Stable Referrals: Geovanna Hernandez MD [Primary Care Provider] - Coding Level of Care Code ED Architectural Design Lecturer for Chg Fwd Exam Comprehensive
[2019-11-20 04:14] LABS: ABG PCO2 40.8 mmHg (35-45); ABG PH Result 7.49 (7.35-7.45); Base Excess ABG 7.4 mmol/L (-2.0-2.0); Blood Gas Allen Test Pos; Blood Gas Sample Site Radial, left; Blood Gas Sample Type Arterial; Carboxyhemoglobin 1.3 %THgb (0.4-20.1); HCO3 ABG 31.3 mmol/L (22-26); HGB O2 Sat 90.3 % (95-100); Methemoglobin 0.3 % (0.4-1.5); PO2 ABG 58.1 mmHg (80.0-100.0); Total Hemoglobin 13.4 g/dL (12-16)
[2019-11-20] MEDS: adenosine 3 mg/mL SDV 2mL 12 MG IVP (04:15)
[2019-11-20 04:18] LABS: Basophils # 0.1 10^3/uL (0.0-0.1); Basophils % 0.4 %; Eosinophils % 0.2 %; Hematocrit 42.4 % (37.0-47.0); Hemoglobin 13.4 g/dL (11.5-15.3); Lymphocytes # 4.4 10^3/uL (0.8-4.8); Lymphocytes % 24.7 %; Mean Corpuscular HGB Conc 31.6 g/dL (30.0-36.0); Mean Corpuscular Hemoglobin 29.3 pg (28.0-34.0); Mean Corpuscular Volume 92.6 fL (81-99); Mean Platelet Volume 10.8 fL (7.4-10.4); Monocytes % 5.5 %; Neutrophils # 12.24 10^3/uL (1.8-7.7); Neutrophils % 68.5 %; Nucleated Red Blood Cells % 0 %; Platelet Count 301 10^3/cmm (130-400); Red Blood Count 4.58 10^6/uL (4.1-5.3); Red Cell Distribution Width 16.5 % (12.1-15.1); White Blood Count 17.9 10^3/uL (4.0-10.0)
[2019-11-20 04:29] LABS: INR 0.87 (0.8-1.2)
[2019-11-20] MEDS: sodium chloride 0.9% 1,000 ML 999 ML IV (04:30)
[2019-11-20] MEDS: adenosine 3 mg/mL SDV 2mL 6 MG IVP (04:33)
[2019-11-20] MEDS: LORazepam 2 mg/mL INJ 1 mL 1 MG IVP (04:36)
[2019-11-20 04:38] LABS: Troponin(5th) Baseline 66 ng/L (0-10)
[2019-11-20 04:47] LABS: Alanine Aminotransferase 175 U/L (0-33); Albumin Level 3.7 g/dL (3.5-5.2); Alkaline Phosphatase 226 IU/L (35-105); Anion Gap 15.7 (5-19); Aspartate Amino Transferase 145 U/L (0-32); Blood Urea Nitrogen 17 mg/dL (8-23); Calcium 9.4 mg/dL (8.5-10.5); Carbon Dioxide 30 mmol/L (22-29); Chloride 97 mmol/L (98-107); Globulin 3.1 g/dL (1.3-4.6); Glomerular Filtration Rate 63.7 mL/min (90-130); Glucose 136 mg/dL (65-115); NT Pro B Type Natriuretic Pept 6785 pg/mL (0-125); Osmolality Calculated 290 mOsm/kg (285-295); Potassium 4.7 mmol/L (3.5-5.1); Sodium 138 mmol/L (136-145); Total Bilirubin 0.7 mg/dL (0.15-1.2); Total Protein 6.8 g/dL (6.6-8.7)
[2019-11-20 04:48] LABS: Digoxin 0.6 ng/mL (0.6-1.2)
[2019-11-20 04:57] LABS: Fibrinogen 531 mg/dL (174-498)
[2019-11-20 04:58] LABS: SARS Covid-2 Antigen Positive (Negative)
--- NOTE | 2019-11-20 05:00 | PC.NURSE ---
lab called positive COVID result, Dr. Pitt notified.
[2019-11-20 05:17] LABS: D Dimer 19.95 ug/mIFEU (0-0.59)
[2019-11-20] MEDS: succinylcholine 20 mg/mL SDV 10mL 130 MG IV (05:22)
--- NOTE | 2019-11-20 05:30 | XRR_ITS ---
PROCEDURE INFORMATION: Exam: XR Chest, 1 View Exam date and time: 11/20/2019 5:31 AM Age: 59 years old Clinical indication: Device placement; Ett placement (vent status); Additional info: Post intubation TECHNIQUE: Imaging protocol: XR of the chest Views: 1 view. COMPARISON: CR (CHEST, ) 11/20/2019 4:42 AM FINDINGS: Tubes, catheters and devices: An endotracheal tube is placed with its tip approximately 3.9 cm from the gabriel. A nasogastric tube is present with its tip at least within the proximal stomach. EKG leads overlie the chest. Lungs: There is indistinctness of the pulmonary vasculature and bilateral increased interstitial markings seen, findings suggesting pulmonary edema. Pleural space: Unremarkable. No pleural effusion. No pneumothorax. Heart/Mediastinum: Unremarkable. No cardiomegaly. Bones/joints: Unremarkable. Soft tissues: Transcutaneous pacemaker lead overlies the right mid hemithorax and left lower chest. XR/XR chest 1V portable [id number] IMPRESSION: 1. Endotracheal tube tip 3.9 cm from the gabriel. 2. Indistinct pulmonary vasculature and increased interstitial markings in the mid and lower hemithoraces compatible with pulmonary edema.
--- NOTE | 2019-11-20 05:37 | PC.NURSE ---
EKG done at 0530 and shown to ER doctor
[2019-11-20] MEDS: propofol 1,000 MG/100 ML INJ 5.2 MG IV (05:45)
--- NOTE | 2019-11-20 05:46 | ECG_ITS ---
[facility] Test Date: 2019-11-20 Pat Name: Shana Roy Department: Room: Gender: Female Strap Sewer: : 1960 Requested By: Guicho Pitt Order Number: [id number] Patty MD: Ayan Angulo M.D. Measurements Intervals [place] Rate: 103 P: FL: -1 QRS: 76 QRSD: 105 T: 253 QT: 300 QTc: 394 Interpretive Statements SINUS RHYTHM WITH FREQUENT SUPRAVENTRICULAR PREMATURE COMPLEXES ST DEVIATION AND MODERATE T-WAVE ABNORMALITY, CONSIDER LATERAL ISCHEMIA [-0.1+ mV T WAVE IN I/aVL/V5/V6] ST DEVIATION AND MODERATE T-WAVE ABNORMALITY, CONSIDER INFERIOR ISCHEMIA [-0.1+ mV T WAVE IN II/aVF] Compared to ECG 11/05/2019 20:58:49 Ventricular premature complex(es) now present Aberrant conduction of supraventricular beat(s) now present Possible ischemia now present Sinus rhythm no longer present T-wave abnormality still present Electronically Signed On 11-21-2019 19:46:57 CDT by Ayan Angulo M.D. [id number]
[2019-11-20] MEDS: vecuronium 10 mg SDV IVP (06:10)
--- NOTE | 2019-11-20 06:17 | PC.NURSE ---
EKG done at 0618 and shown to ER doctor
[2019-11-20] MEDS: ipratropium-albuterol 3 mL Neb INHALATION (06:40)
[2019-11-20 06:42] LABS: Troponin 5 2HR 56.69 ng/L (0-10)
[2019-11-20 06:44] LABS: Troponin 5 2HR Delta -9.31 ABS# (0-10)
--- NOTE | 2019-11-20 07:01 | XRR_ITS ---
PROCEDURE INFORMATION: Exam: XR Chest, 1 View Exam date and time: 11/20/2019 7:03 AM Age: 59 years old Clinical indication: Device placement; Other: Central line; Additional info: Post central line insertion TECHNIQUE: Imaging protocol: XR of the chest Views: 1 view. COMPARISON: CR (CHEST, ) 11/20/2019 5:37 AM FINDINGS: Tubes, catheters and devices: Newly inserted right internal jugular central venous catheter terminates in the distal superior vena cava. Endotracheal and feeding tubes again demonstrated. The endotracheal tube terminates 3.9 cm above the gabriel. Lungs: COPD, interstitial disease, and asymmetric airspace disease. Pleural space: No significant pneumothorax. Incomplete visualization of the right costophrenic angle. Heart/Mediastinum: No cardiomegaly. Bones/joints: Osteopenia. XR/XR chest 1V portable [id number] IMPRESSION: 1. Newly inserted right internal jugular central venous catheter terminates in the distal superior vena cava. 2. COPD, interstitial disease, and asymmetric airspace disease.
[2019-11-20] MEDS: cefTRIAXone 1,000 MG in sodium chloride 0.9% (plus) 50 ML 100 MG IV (07:32)
[2019-11-20] MEDS: dexamethasone 10 mg/mL INJ IVP (07:33)
[2019-11-20] MEDS: enoxaparin 80 mg/0.8 mL Syringe SUBCUT (07:33)
== END 2019-11-20 07:43 | disposition other institution (70) ==
PROVIDERS: Emergency Medicine; Emergency Provider Emergency Medicine; PCP Internal Medicine
DX: U07.1 COVID-19 (principal); I48.91 Unspecified atrial fibrillation; I11.0 Hypertensive heart disease with heart failure; I50.9 Heart failure, unspecified; J44.9 Chronic obstructive pulmonary disease, unspecified; F17.210 Nicotine dependence, cigarettes, uncomplicated
CPT/HCPCS: 12345; 31500; 36556; 36600; 51702; 71045; 80053; 80162; 82805; 83880; 84484; 85025; 85378; 85384; 85610; 87040; 87426; 93005; 94002; 94640; 94660; 94799; 96365; 96366; 96368; 96372; 96375; 99284; 99291; J0153; J0330; J0696; J1100; J1650; J2060; J2704; J2930; J3010; J3490; J7030; J7611

== ENCOUNTER → 2019-12-22 09:22 | Outpatient (BNVA) | payer MEDICARE, MEDICAID, SELFPAY | PROVIDERS: PCP Internal Medicine; Visit Provider Internal Medicine | DX: M06.9 Rheumatoid arthritis, unspecified (principal); F17.210 Nicotine dependence, cigarettes, uncomplicated; Z86.19 Personal history of other infectious and parasitic diseases; Z79.52 Long term (current) use of systemic steroids | CPT/HCPCS: 99213; 99214 ==

== ENCOUNTER 2019-12-22 16:10 | Outpatient (CLI) | payer MEDICARE, MEDICAID, SELFPAY ==
--- NOTE | 2019-12-22 | XR_ITS ---
WS: [id number] Chest 2 views, 12/22/2019 Clinical Data: COPD, EXACERBATION Comparison: Portable chest, 11/20/2019. Findings: No nodules, masses or effusions are seen. The heart is normal. The pulmonary vascularity is not increased. No pneumonia or pneumothorax is seen. The multiple tubes have been removed. XR/XR chest 2V* [id number] Impression: Negative chest.
== END 2019-12-22 16:11 | disposition home or self-care (01) ==
LOC: LAB 16:12
PROVIDERS: PCP Internal Medicine; Visit Provider Nurse Practitioner Family
DX: J44.1 Chronic obstructive pulmonary disease with (acute) exacerbation (principal)
CPT/HCPCS: 71046

== ENCOUNTER 2019-12-26 11:35 | Emergency (ER) | payer MEDICARE, MEDICAID, SELFPAY ==
[2019-12-26 11:44] VITALS: BP 111/74; PULSE 93; RESP 14; TEMP 37.1; O2SAT 96; BMI 31.6
--- NOTE | 2019-12-26 12:12 | ED_ITS ---
HPI - General Adult General: Chief complaint: General Medical Stated complaint: SOB/possible allergic reaction Time Seen by Provider: 12/26/19 12:09 History of Present Illness: HPI narrative: 59-year-old female who presents to the emergency room complaining of swelling of her face and increased shortness of breath. Patient was recently treated for COVID-19 and is still on a steroid taper in part due to her rheumatoid arthritis. In addition to that she has a known severe cardiomyopathy secondary to ischemia. She has an ejection fraction of 20% on echo done about 3 months ago. Did not been having any chest pain. Onset (ago): day(s) Location: head and face Radiation: non-radiation Severity: mild (Dyspnea) Relieving factors: rest Exacerbating factors: none and movement Associated symptoms: Reports cough, dyspnea, malaise and short of breath; Deny chest pain, confusion, diaphoresis, decreased appetite, fevers/chills, headache(s), nausea, rash, palpitations, seizures, syncope, vomiting or weakness Treatments prior to arrival: none Review of Systems Const: Reports: malaise; Denies: diaphoresis ENMT: Denies: throat pain, ear or mastoid pain, nasal discharge or nasal congestion Card: Denies: chest pain, palpitations or syncope Resp: Reports: dyspnea and non-productive cough GI: Denies: nausea or vomiting : Denies: flank pain, difficulty voiding, dysuria, urinary frequency or urinary urgency Skin/Breast: Denies: rash Neuro: Denies: headache(s) or confusion PFSH ED PFSH: Medical History Atrial fibrillation Atrial flutter CHF (congestive heart failure) COPD (chronic obstructive pulmonary disease) Edema leg Emphysema/COPD Fibromyalgia GERD (gastroesophageal reflux disease) History of coronary angiogram Hypertension Hypotension Nonischemic cardiomyopathy Ejection fraction 25% Osteoarthritis Rheumatoid arthritis Sinus tachycardia Tobacco dependency Surgical History H/O: hysterectomy S/P tonsillectomy Family History Father Cancer Mother Cancer Sister Cancer Other CAD (coronary artery disease) Hyperlipidemia Hypertension Lung disease Denies family history of Psychiatric illness Social History (Reviewed 12/26/19 @ 17:50 by BRITTNI Pelayo Smoking and tobacco status: current every day smoker Alcohol intake: never History of recent travel: No Physical Exam Const: COMMON NORMALS: no acute distress GENERAL APPEARANCE: cooperative and comfortable ORIENTATION/CONSCIOUSNESS: Yes awake, Yes oriented to person, Yes oriented to place and Yes oriented to time HENMT: COMMON NORMALS: normocephalic, atraumatic and hearing grossly normal bilaterally HEAD & SCALP: normocephalic and atraumatic Eye: COMMON NORMALS: Equal, round and reactive pupils present, EOMs intact bilaterally, conjunctivae normal and no scleral icterus CONJUNCTIVA: Yes conjunctivae normal PUPIL: Yes Equal, round and reactive pupils present Neck/C-Spine: COMMON NORMALS: full ROM, no lymphadenopathy, supple and no JVD Lymph: LYMPHATIC: no lymphadenopathy noted and no lymphedema noted Resp: COMMON NORMALS: normal respiratory effort, No retractions, No use of accessory muscles and clear to auscultation bilaterally AUSCULTATION: clear to auscultation bilaterally Cardio: COMMON NORMALS: no JVD, regular rate, regular rhythm and No murmurs present (Cardio) RATE: regular rate RHYTHM: regular rhythm GI: COMMON NORMALS: Soft to palpation and No hepatosplenomegaly present AUSCULTATION: Yes normoactive bowel sounds PALPATION: Yes Soft to palpation, No Tenderness to palpation present (GI), No Guarding due to palpation present (GI) and Yes No hepatosplenomegaly present Extremity: COMMON NORMALS: normal to inspection, capillary refill normal, no clubbing, cyanosis or edema, no calf tenderness and no pedal edema Neuro: SENSORIUM/ORIENTATION: Yes oriented to person, Yes oriented to place and Yes oriented to time Skin: COMMON NORMALS: no rashes or lesions noted GENERAL SKIN EXAM: no rashes or lesions noted Course Vital Signs: Vital signs: Vital Signs Temperature 98.8 F 12/26/19 11:44 Pulse Rate 83 12/26/19 17:03 Respiratory Rate 14 12/26/19 17:03 Blood Pressure 130/66 12/26/19 17:03 Pulse Oximetry 98 12/26/19 17:03 [facility] - General Adult Lab Data: Labs: Lab Results 12/26/19 12/26/19 12/26/19 Range/Units 12:35 12:53 12:53 WBC 18.4 H (4.0-10.0) 10^3/ uL RBC 4.91 (4.1-5.3) 10^6/u L Hgb 14.6 (11.5-15.3) g/dL Hct 46.7 (37.0-47.0) % MCV 95.1 (81-99) fL MCH 29.7 (28.0-34.0) pg MCHC 31.3 (30.0-36.0) g/dL RDW 16.7 H (12.1-15.1) % Plt Count 214 (130-400) 10^3/c mm MPV 10.9 H (7.4-10.4) fL Neut % (Auto) 85.1 % Lymph % (Auto) 10.1 % Haines % (Auto) 2.9 % Eos % (Auto) 0.1 % Baso % (Auto) 0.3 % Neut # (Auto) 15.67 H (1.8-7.7) 10^3/u L Lymph # (Auto) 1.9 (0.8-4.8) 10^3/u L Haines # (Auto) 0.5 (0.2-0.9) 10^3/u L Eos # (Auto) 0.0 (0.0-0.8) 10^3/u L Baso # (Auto) 0.1 (0.0-0.1) 10^3/u L Nucleated RBC % (a uto) 0 % Nucleated RBCs # 0.0 /100WBC D-Dimer 2.76 H (0-0.59) ug/mIFE U Specimen Type Arterial Sample Site Radial, right ABG pH 7.50 H (7.35-7.45) ABG pCO2 47.2 H (35-45) mmHg ABG pO2 68.2 L (80.0-100.0) mmH g ABG HCO3 36.6 H (22-26) mmol/L ABG O2 Saturation 95.4 ABG Base Excess 11.5 H (-2.0-2.0) mmol/ L David Test Pos A-a O2 Gradient 3.2 L (5-10) mmHg Hematocrit 45.3 (37-47) % Hgb O2 Saturation 90.1 L (95-100) % Carboxyhemoglobin 4.8 (0.4-20.1) %THgb Methemoglobin 0.8 (0.4-1.5) % Total Hemoglobin 14.8 (12-16) g/dL Sodium 141.0 (131-143) mmol/L Potassium 3.9 (3.5-5.0) mmol/L Glucose 117.0 H (70-115) mg/dL Ionized Calcium 1.2 (1.1-1.4) mmol/L O2 Delivery Device Room air Mixing And Molding Machine Operator ID Gd Chloride (98-107) mmol/L Carbon Dioxide (22-29) mmol/L Anion Gap (5-19) BUN (8-23) mg/dL Creatinine (0.5-0.9) mg/dL GFR Calculation (90-130) mL/min Calculated Osmolal ity (285-295) mOsm/k g Calcium (8.5-10.5) mg/dL Total Bilirubin (0.15-1.2) mg/dL AST (0-32) U/L ALT (0-33) U/L Alkaline Phosphata se (35-105) IU/L Troponin T Baselin e (0-10) ng/L Troponin T 120 Min kenaitze (0-10) ng/L Delta Troponin T (0-10) ABS# Total Protein (6.6-8.7) g/dL Albumin (3.5-5.2) g/dL Globulin (1.3-4.6) g/dL Urine Color (Yellow) Urine Appearance (CLEAR) Urine pH (5-7) Ur Specific Gravit y (1.005-1.030) Urine Protein (Negative) Urine Glucose (UA) (Normal) Urine Ketones (Negative) Urine Blood (Negative) Urine Nitrate (Negative) Urine Bilirubin (Negative) Urine Urobilinogen (Negative) mg/dL Ur Leukocyte Lula ase (Negative) 12/26/19 12/26/19 12/26/19 Range/Units 12:53 12:53 14:47 WBC (4.0-10.0) 10^3/ uL RBC (4.1-5.3) 10^6/u L Hgb (11.5-15.3) g/dL Hct (37.0-47.0) % MCV (81-99) fL MCH (28.0-34.0) pg MCHC (30.0-36.0) g/dL RDW (12.1-15.1) % Plt Count (130-400) 10^3/c mm MPV (7.4-10.4) fL Neut % (Auto) % Lymph % (Auto) % Haines % (Auto) % Eos % (Auto) % Baso % (Auto) % Neut # (Auto) (1.8-7.7) 10^3/u L Lymph # (Auto) (0.8-4.8) 10^3/u L Haines # (Auto) (0.2-0.9) 10^3/u L Eos # (Auto) (0.0-0.8) 10^3/u L Baso # (Auto) (0.0-0.1) 10^3/u L Nucleated RBC % (a uto) % Nucleated RBCs # /100WBC D-Dimer (0-0.59) ug/mIFE U Specimen Type Sample Site ABG pH (7.35-7.45) ABG pCO2 (35-45) mmHg ABG pO2 (80.0-100.0) mmH g ABG HCO3 (22-26) mmol/L ABG O2 Saturation ABG Base Excess (-2.0-2.0) mmol/ L David Test A-a O2 Gradient (5-10) mmHg Hematocrit (37-47) % Hgb O2 Saturation (95-100) % Carboxyhemoglobin (0.4-20.1) %THgb Methemoglobin (0.4-1.5) % Total Hemoglobin (12-16) g/dL Sodium 139 (131-143) mmol/L Potassium 4.2 (3.5-5.0) mmol/L Glucose 116 H (70-115) mg/dL Ionized Calcium (1.1-1.4) mmol/L O2 Delivery Device Mixing And Molding Machine Operator ID Chloride 96 L (98-107) mmol/L Carbon Dioxide 35 H (22-29) mmol/L Anion Gap 12.2 (5-19) BUN 26 H (8-23) mg/dL Creatinine 0.8 (0.5-0.9) mg/dL GFR Calculation 72.9 L (90-130) mL/min Calculated Osmolal ity 294 (285-295) mOsm/k g Calcium 9.0 (8.5-10.5) mg/dL Total Bilirubin 0.4 (0.15-1.2) mg/dL AST 21 (0-32) U/L ALT 33 (0-33) U/L Alkaline Phosphata se 148 H (35-105) IU/L Troponin T Baselin e 16 H (0-10) ng/L Troponin T 120 Min kenaitze (0-10) ng/L Delta Troponin T (0-10) ABS# Total Protein 5.9 L (6.6-8.7) g/dL Albumin 3.8 (3.5-5.2) g/dL Globulin 2.1 (1.3-4.6) g/dL Urine Color Straw (Yellow) Urine Appearance Clear (CLEAR) Urine pH 7 (5-7) Ur Specific Gravit y 1.005 (1.005-1.030) Urine Protein Neg (Negative) Urine Glucose (UA) Norm (Normal) Urine Ketones Negative (Negative) Urine Blood Neg (Negative) Urine Nitrate Negative (Negative) Urine Bilirubin Neg (Negative) Urine Urobilinogen Norm (Negative) mg/dL Ur Leukocyte Lula ase Negative (Negative) 12/26/19 Range/Units 15:50 WBC (4.0-10.0) 10^3/ uL RBC (4.1-5.3) 10^6/u L Hgb (11.5-15.3) g/dL Hct (37.0-47.0) % MCV (81-99) fL MCH (28.0-34.0) pg MCHC (30.0-36.0) g/dL RDW (12.1-15.1) % Plt Count (130-400) 10^3/c mm MPV (7.4-10.4) fL Neut % (Auto) % Lymph % (Auto) % Haines % (Auto) % Eos % (Auto) % Baso % (Auto) % Neut # (Auto) (1.8-7.7) 10^3/u L Lymph # (Auto) (0.8-4.8) 10^3/u L Haines # (Auto) (0.2-0.9) 10^3/u L Eos # (Auto) (0.0-0.8) 10^3/u L Baso # (Auto) (0.0-0.1) 10^3/u L Nucleated RBC % (a uto) % Nucleated RBCs # /100WBC D-Dimer (0-0.59) ug/mIFE U Specimen Type Sample Site ABG pH (7.35-7.45) ABG pCO2 (35-45) mmHg ABG pO2 (80.0-100.0) mmH g ABG HCO3 (22-26) mmol/L ABG O2 Saturation ABG Base Excess (-2.0-2.0) mmol/ L David Test A-a O2 Gradient (5-10) mmHg Hematocrit (37-47) % Hgb O2 Saturation (95-100) % Carboxyhemoglobin (0.4-20.1) %THgb Methemoglobin (0.4-1.5) % Total Hemoglobin (12-16) g/dL Sodium (131-143) mmol/L Potassium (3.5-5.0) mmol/L Glucose (70-115) mg/dL Ionized Calcium (1.1-1.4) mmol/L O2 Delivery Device Mixing And Molding Machine Operator ID Chloride (98-107) mmol/L Carbon Dioxide (22-29) mmol/L Anion Gap (5-19) BUN (8-23) mg/dL Creatinine (0.5-0.9) mg/dL GFR Calculation (90-130) mL/min Calculated Osmolal ity (285-295) mOsm/k g Calcium (8.5-10.5) mg/dL Total Bilirubin (0.15-1.2) mg/dL AST (0-32) U/L ALT (0-33) U/L Alkaline Phosphata se (35-105) IU/L Troponin T Baselin e (0-10) ng/L Troponin T 120 Min kenaitze 12.65 H (0-10) ng/L Delta Troponin T -3.35 L (0-10) ABS# Total Protein (6.6-8.7) g/dL Albumin (3.5-5.2) g/dL Globulin (1.3-4.6) g/dL Urine Color (Yellow) Urine Appearance (CLEAR) Urine pH (5-7) Ur Specific Gravit y (1.005-1.030) Urine Protein (Negative) Urine Glucose (UA) (Normal) Urine Ketones (Negative) Urine Blood (Negative) Urine Nitrate (Negative) Urine Bilirubin (Negative) Urine Urobilinogen (Negative) mg/dL Ur Leukocyte Lula ase (Negative) Discharge Plan Discharge Patient Disposition: Home Clinical Impression: COVID-19, Congestive heart failure Condition: Stable Prescriptions: No Action folic acid 1 mg tablet 1 mg PO DAILY RF: 0 omeprazole 40 mg capsule,delayed release(DR/EC) 40 mg PO DAILY RF: 0 amiodarone 200 mg tablet 200 mg PO DAILY RF: 0 melatonin 3 mg capsule 6 mg PO BEDTIME PRN (Reason: Sleep) RF: 0 metoprolol succinate 50 mg tablet extended release 24 hr 50 mg PO DAILY RF: 0 hydroxychloroquine 200 mg tablet 200 mg PO BID Qty: 60 RF: 2 cholecalciferol (vitamin D3) 1,250 mcg (50,000 unit) capsule 50,000 unit PO .weekly Qty: 13 RF: 0 diclofenac sodium [Voltaren Arthritis Pain] 1 % gel 2 gm TOPICAL QID Qty: 100 RF: 0 prednisone 20 mg Tablet See Rx Instructions .ROUTE .COMPLEX RF: 0 diclofenac sodium 1 % gel 4 g TOPICAL QID PRN (Reason: Pain) RF: 0 albuterol sulfate 90 mcg/actuation Hfa Aerosol Inhaler 2 puff INHALATION Q6H PRN (Reason: shortness of breath) RF: 0 gabapentin 400 mg capsule 400 mg PO TID PRN (Reason: unknown) RF: 0 Eliquis 5 mg Tablet 5 mg PO BID Qty: 180 RF: 4 ampicillin 500 mg capsule 500 mg PO QID RF: 0 Lasix 40 mg tablet See Rx Instructions .ROUTE .COMPLEX RF: 0 albuterol sulfate 2.5 mg /3 mL (0.083 %) solution for nebulization 2.5 mg inhalation Q6H PRN (Reason: unknown) RF: 0 lisinopril 5 mg tablet 5 mg PO DAILY RF: 0 Plaquenil See Rx Instructions .ROUTE .COMPLEX RF: 0 Discharge Orders: Discharge Order (Routine); Ordered 12/26/19 Ordered By: Brock Gutiérrez Referrals: Geovanna Hernandez MD [Primary Care Provider] - Discharge Diet: Usual diet Discharge Activity: Increase activity as tolerated Activity Restrictions/Additional Instructions: Follow-up with your primary care doctor as needed. Discharge Date/Time: 10/26/20 17:04 Coding Level of Care Code ED Bottling Machine Operator for Kishan Sandhu
--- NOTE | 2019-12-26 12:13 | ECG_ITS ---
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 Measurements Intervals [place] Rate: 86 P: 21 PA: 142 QRS: 58 QRSD: 110 T: 137 QT: 373 QTc: 448 Interpretive Statements SINUS RHYTHM POSSIBLE LEFT ATRIAL ENLARGEMENT [-0.1mV P WAVE IN V1/V2] ST DEVIATION AND MODERATE T-WAVE ABNORMALITY, CONSIDER ANTEROLATERAL ISCHEMIA [-0.1+ mV T WAVE IN V3-V6] Compared to ECG 11/20/2019 06:17:18 Possible ischemia now present Atrial flutter no longer present T-wave abnormality still present Electronically Signed On 12-27-2019 7:18:53 CDT by Kayla Olivera M.D. [id number]
--- NOTE | 2019-12-26 12:13 | XR_ITS ---
WS: [id number] Exam: XR chest 1V portable [id number] Date/Time of Exam: 12/26/2019 12:13 PM Reason For Exam: dyspnea/cough Comparison 12/22/2019. No acute infiltrates noted. Heart size is normal for technique. No pleural effusions. The mediastinum and bony thorax are unremarkable. XR/XR chest 1V portable [id number] IMPRESSION: 1. No acute cardiopulmonary finding. No significant change since previous study .
[2019-12-26 12:51] LABS: ABG PCO2 47.2 mmHg (35-45); Alveolar-Arterial Oxygen Gradi 3.2 mmHg (5-10); Arterial Blood Gas Hematocrit 45.3 % (37-47); Base Excess ABG 11.5 mmol/L (-2.0-2.0); Blood Gas Allen Test Pos; Blood Gas Operator Identificat GD; Blood Gas Sample Site Radial, right; Blood Gas Sample Type Arterial; Carboxyhemoglobin 4.8 %THgb (0.4-20.1); HCO3 ABG 36.6 mmol/L (22-26); HGB O2 Sat 90.1 % (95-100); Ionized Calcium Level - ABG 1.2 mmol/L (1.1-1.4); Methemoglobin 0.8 % (0.4-1.5); Oxygen Device ROOM AIR; Oxygen Saturation ABG 95.4; PO2 ABG 68.2 mmHg (80.0-100.0); Potassium Level - ABG 3.9 mmol/L (3.5-5.0); Total Hemoglobin 14.8 g/dL (12-16)
[2019-12-26 13:08] LABS: Basophils # 0.1 10^3/uL (0.0-0.1); Basophils % 0.3 %; Eosinophils % 0.1 %; Hematocrit 46.7 % (37.0-47.0); Hemoglobin 14.6 g/dL (11.5-15.3); Lymphocytes # 1.9 10^3/uL (0.8-4.8); Lymphocytes % 10.1 %; Mean Corpuscular HGB Conc 31.3 g/dL (30.0-36.0); Mean Corpuscular Hemoglobin 29.7 pg (28.0-34.0); Mean Corpuscular Volume 95.1 fL (81-99); Mean Platelet Volume 10.9 fL (7.4-10.4); Monocytes # 0.5 10^3/uL (0.2-0.9); Monocytes % 2.9 %; Neutrophils # 15.67 10^3/uL (1.8-7.7); Neutrophils % 85.1 %; Nucleated Red Blood Cells % 0 %; Platelet Count 214 10^3/cmm (130-400); Red Blood Count 4.91 10^6/uL (4.1-5.3); Red Cell Distribution Width 16.7 % (12.1-15.1); White Blood Count 18.4 10^3/uL (4.0-10.0)
--- NOTE | 2019-12-26 13:21 | CT_ITS ---
WS: [id number] CT CHEST ANGIOGRAPHY WITH REFORMATS HISTORY: dyspnea/cough TECHNIQUE: Contiguous axial images are obtained through the chest during arterial injection of intrav enous contrast. Images are reconstructed to evaluate the pulmonary arteries. MIP imaging also reviewe d. All CT scans at [facility] use at least one of these dose optimization techniques: aut omated exposure control; mA and/or kV adjustment per patient size (includes targeted exams where dose is matched to clinical indication); or iterative reconstruction. CONTRAST: Omnipaque 350; 95 mL IV. DLP: 547.17 mGy.cm COMPARISON: 05/20/2018 Excellent opacification of the pulmonary arteries. There is no pulmonary embolism. Minimal atheroscle rosis aorta. No pericardial or pleural effusion. There is marked enlargement of the LEFT ventricle wh ich is similar to the prior study. LEFT ventricular enlargement is causing some mass effect upon the RIGHT ventricle and probably resulting in poor filling of the RIGHT ventricle. Marked hyperexpansion and severe centrilobular emphysema. No nodules or pneumonia. Hepatic steatosis is mild. Mild hyperplasia of the adrenal glands. Bones are osteopenic. CT/CT angio chest PE protcl [id number] IMPRESSION: 1. No pulmonary embolism. 2. Severe LEFT ventricle enlargement with compression upon the RIGHT ventricle . Suspect poor filling of the RIGHT ventricle. 3. Severe centrilobular emphysema. No pneumonia.
[2019-12-26 13:31] LABS: Alanine Aminotransferase 33 U/L (0-33); Albumin Level 3.8 g/dL (3.5-5.2); Alkaline Phosphatase 148 IU/L (35-105); Anion Gap 12.2 (5-19); Aspartate Amino Transferase 21 U/L (0-32); Blood Urea Nitrogen 26 mg/dL (8-23); Carbon Dioxide 35 mmol/L (22-29); Chloride 96 mmol/L (98-107); Globulin 2.1 g/dL (1.3-4.6); Glomerular Filtration Rate 72.9 mL/min (90-130); Glucose 116 mg/dL (65-115); Osmolality Calculated 294 mOsm/kg (285-295); Potassium 4.2 mmol/L (3.5-5.1); Sodium 139 mmol/L (136-145); Total Bilirubin 0.4 mg/dL (0.15-1.2); Total Protein 5.9 g/dL (6.6-8.7)
[2019-12-26 13:32] LABS: Troponin(5th) Baseline 16 ng/L (0-10)
[2019-12-26 13:34] LABS: D Dimer 2.76 ug/mIFEU (0-0.59)
--- NOTE | 2019-12-26 14:13 | ECG_ITS ---
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 Measurements Intervals [place] Rate: 94 P: 22 GA: 147 QRS: 56 QRSD: 110 T: 177 QT: 368 QTc: 461 Interpretive Statements SINUS RHYTHM WITH OCCASIONAL VENTRICULAR PREMATURE COMPLEXES POSSIBLE LEFT ATRIAL ENLARGEMENT [-0.1mV P WAVE IN V1/V2] ST DEVIATION AND MODERATE T-WAVE ABNORMALITY, CONSIDER LATERAL ISCHEMIA [-0.1+ mV T WAVE IN I/aVL/V5/V6] Compared to ECG 12/26/2019 12:07:38 Ventricular premature complex(es) now present T-wave abnormality still present Possible ischemia still present Electronically Signed On 12-27-2019 7:36:59 CDT by Kayla Olivera M.D. [id number] f
[2019-12-26 15:00] LABS: Add Urine Microscopic? NO; Bilirubin Urine Neg (Negative); Blood Urine Neg (Negative); Glucose Urine UA Norm (Normal); Ketones Urine Negative (Negative); Leukocyte Esterase Urine Negative (Negative); Nitrate Urine Negative (Negative); Protein Urine Neg (Negative); Specific Gravity, Urine 1.005 (1.005-1.030); Urine Appearance Clear (CLEAR); Urine Color Straw (Yellow); Urobilinogen Urine Norm (Negative); pH Urine 7 (5-7)
[2019-12-26] MEDS: iohexol 350 mg/mL 100 mL Btl IV (15:13)
[2019-12-26 16:27] LABS: Troponin 5 2HR 12.65 ng/L (0-10)
[2019-12-26 16:31] LABS: Troponin 5 2HR Delta -3.35 ABS# (0-10)
[2019-12-26 17:03] VITALS: BP 130/66; PULSE 83; RESP 14; O2SAT 98
--- NOTE | 2019-12-26 17:35 | PC.NURSE ---
Read and agree with both assessments.
== END 2019-12-26 17:04 | disposition home or self-care (01) ==
PROVIDERS: Emergency Provider Family Medicine; PCP Internal Medicine
DX: U07.1 COVID-19 (principal); I11.0 Hypertensive heart disease with heart failure; I50.9 Heart failure, unspecified; Z79.01 Long term (current) use of anticoagulants; I48.91 Unspecified atrial fibrillation; I48.92 Unspecified atrial flutter; J44.9 Chronic obstructive pulmonary disease, unspecified; F17.210 Nicotine dependence, cigarettes, uncomplicated
CPT/HCPCS: 12345; 36600; 71045; 71275; 80051; 80053; 81003; 82810; 83986; 84484; 85025; 85378; 93005; 99282; 99283; Q9967

== ENCOUNTER → 2020-02-17 09:49 | Outpatient (BNVA) | payer MEDICARE, MEDICAID, SELFPAY | PROVIDERS: PCP Internal Medicine; Visit Provider Internal Medicine Cardiovascular Disease | DX: I50.30 Unspecified diastolic (congestive) heart failure (principal) | CPT/HCPCS: 80048; 85025 ==

== ENCOUNTER → 2020-03-06 09:58 | Outpatient (BNVA) | payer MEDICARE, MEDICAID, SELFPAY | PROVIDERS: PCP Internal Medicine; Visit Provider Internal Medicine | DX: M06.9 Rheumatoid arthritis, unspecified (principal); I48.91 Unspecified atrial fibrillation; Z79.899 Other long term (current) drug therapy; Z11.1 Encounter for screening for respiratory tuberculosis; Z11.59 Encounter for screening for other viral diseases; Z90.89 Acquired absence of other organs; I50.30 Unspecified diastolic (congestive) heart failure; R53.1 Weakness; R06.00 Dyspnea, unspecified; R53.83 Other fatigue; R76.8 Other specified abnormal immunological findings in serum; Z86.19 Personal history of other infectious and parasitic diseases; F17.210 Nicotine dependence, cigarettes, uncomplicated | CPT/HCPCS: 99214 ==

== ENCOUNTER → 2020-03-13 14:13 | Outpatient (BNVA) | payer MEDICARE, MEDICAID, SELFPAY | PROVIDERS: PCP Internal Medicine; Visit Provider Internal Medicine | DX: M06.9 Rheumatoid arthritis, unspecified (principal); Z79.899 Other long term (current) drug therapy; Z11.1 Encounter for screening for respiratory tuberculosis; Z11.59 Encounter for screening for other viral diseases; R76.8 Other specified abnormal immunological findings in serum | CPT/HCPCS: 36415; 80053; 82728; 83540; 84443; 85025; 86431; 86480; 87517 ==

== ENCOUNTER → 2020-03-26 10:41 | Outpatient (BNVA) | payer MEDICARE, MEDICAID, SELFPAY | PROVIDERS: PCP Internal Medicine; Visit Provider Internal Medicine | DX: M06.9 Rheumatoid arthritis, unspecified (principal); R76.8 Other specified abnormal immunological findings in serum; Z79.899 Other long term (current) drug therapy; E61.1 Iron deficiency; E87.6 Hypokalemia; M54.9 Dorsalgia, unspecified; F17.210 Nicotine dependence, cigarettes, uncomplicated | CPT/HCPCS: 99214 ==

== ENCOUNTER 2020-03-26 16:04 | Outpatient (CLI) | payer MEDICARE, MEDICAID, SELFPAY ==
--- NOTE | 2020-03-26 16:10 | XR_ITS ---
WS: [id number] Exam: XR cervical spine fl/ex [id number] Date/Time of Exam: 03/26/2020 4:19 PM Reason For Exam: M54.9 - Dorsalgia, unspecified No fracture or dislocation from the lateral view. No sign of the cervical instability or subluxation in flexion or extension. Degenerative disc narrowing at C5-6 with spondylosis. Facet DJD at all level s. Osteopenia. Paraspinal soft tissues are unremarkable. Relatively good cervical spine flexion but s ome limitation in extension. XR/XR cervical spine fl/ex [id number] IMPRESSION: 1. No fracture or dislocation. No instability or subluxation noted. 2. Degenerative changes.
--- NOTE | 2020-03-26 16:10 | XR_ITS ---
WS: [id number] Exam: XR hand LT 2V [id number] Date/Time of Exam: 03/26/2020 4:19 PM Reason For Exam: M54.9 - Dorsalgia, unspecified No acute fracture or dislocation. Advanced degenerative changes in the IP and MP joints. Marked degen erative change at the radiocarpal joint and the intercarpal joints. No soft tissue foreign bodies are seen. XR/XR hand LT 2V [id number] IMPRESSION: 1. Advanced degenerative changes of the hand and wrist as detailed above. 2. No acute fracture.
--- NOTE | 2020-03-26 16:10 | XR_ITS ---
WS: [id number] Exam: XR lumbar spine 2-3V* [id number] Date/Time of Exam: 03/26/2020 4:19 PM Reason For Exam: M54.9 - Dorsalgia, unspecified No fracture or dislocation. Mild spondylosis. Disc spaces are relatively well maintained. Facet DJD a t L4-5 and L5-S1. Mild levoscoliosis. Osteopenia. XR/XR lumbar spine 2-3V* [id number] IMPRESSION: 1. No fracture or malalignment. 2. Mild degenerative changes, osteopenia and mild scoliosis.
--- NOTE | 2020-03-26 16:10 | XR_ITS ---
WS: [id number] Exam: XR thoracic spine 3V* [id number] Date/Time of Exam: 03/26/2020 4:19 PM Reason For Exam: M54.9 - Dorsalgia, unspecified No acute fracture or dislocation. Minimal degenerative change. Marked osteopenia. Paraspinal soft tis remi structures are unremarkable. XR/XR thoracic spine 3V* [id number] IMPRESSION: 1. No fracture or malalignment. 2. Minimal degenerative changes and marked osteopenia.
--- NOTE | 2020-03-26 16:10 | XR_ITS ---
WS: [id number] Exam: XR hand RT 2V [id number] Date/Time of Exam: 03/26/2020 4:19 PM Reason For Exam: M54.9 - Dorsalgia, unspecified Comparison 08/24/2015. No acute fracture or dislocation. Moderately advanced degenerative changes of the IP and MP joints. S ignificant degenerative progressive change noted involving the radiocarpal joint and the intercarpal joints since prior study. No soft tissue foreign bodies. XR/XR hand RT 2V [id number] IMPRESSION: 1. Moderately advanced degenerative changes in the IP and MP joints. Significan t progression of degenerative change in the wrist since prior study.
[2020-03-26 17:30] LABS: Alanine Aminotransferase 9 U/L (0-33); Albumin Level 3.1 g/dL (3.5-5.2); Alkaline Phosphatase 178 IU/L (35-105); Anion Gap 14.2 (5-19); Aspartate Amino Transferase 17 U/L (0-32); Blood Urea Nitrogen 29 mg/dL (8-23); C Reactive Protein 43.7 mg/L (0.0-4.9); Calcium 9.3 mg/dL (8.5-10.5); Carbon Dioxide 36 mmol/L (22-29); Chloride 89 mmol/L (98-107); Globulin 5.4 g/dL (1.3-4.6); Glomerular Filtration Rate 38.1 mL/min (90-130); Glucose 109 mg/dL (65-115); Osmolality Calculated 288 mOsm/kg (285-295); Potassium 3.2 mmol/L (3.5-5.1); Sodium 136 mmol/L (136-145); Total Bilirubin 0.3 mg/dL (0.15-1.2); Total Protein 8.5 g/dL (6.6-8.7)
[2020-03-26 18:10] LABS: Erythrocyte Sedimentation Rate 101 mm/hr (0-15)
== END 2020-03-26 16:05 | disposition home or self-care (01) ==
LOC: RAD 16:08
PROVIDERS: PCP Internal Medicine; Visit Provider Internal Medicine
DX: M54.9 Dorsalgia, unspecified (principal)
CPT/HCPCS: 36415; 72040; 72072; 72100; 73120; 80053; 85651; 86140

== ENCOUNTER 2020-05-21 20:00 | Outpatient (CLI) | payer MEDICARE, MEDICAID, SELFPAY | END 2020-05-21 20:01 | disposition home or self-care (01) | LOC: SLEEP 05-22 08:43 | PROVIDERS: PCP Internal Medicine; Visit Provider Nurse Practitioner Family | DX: G47.33 Obstructive sleep apnea (adult) (pediatric) (principal) | CPT/HCPCS: 95810 ==

== ENCOUNTER → 2020-06-18 13:28 | Outpatient (BNVA) | payer OTHER, MEDICAID, SELFPAY | PROVIDERS: PCP Internal Medicine; Visit Provider Internal Medicine | DX: M05.9 Rheumatoid arthritis with rheumatoid factor, unspecified (principal); E87.6 Hypokalemia; E61.1 Iron deficiency; R76.8 Other specified abnormal immunological findings in serum; F17.210 Nicotine dependence, cigarettes, uncomplicated | CPT/HCPCS: 99214 ==

== ENCOUNTER → 2020-08-01 13:46 | Outpatient (BNVA) | payer OTHER, MEDICAID, SELFPAY | PROVIDERS: PCP Internal Medicine; Visit Provider Internal Medicine | DX: M06.9 Rheumatoid arthritis, unspecified (principal); R53.83 Other fatigue; F17.210 Nicotine dependence, cigarettes, uncomplicated | CPT/HCPCS: 99213; 99214 ==

== ENCOUNTER 2020-08-13 20:00 | Outpatient (CLI) | payer MEDICARE, MEDICAID, SELFPAY | END 2020-08-13 20:01 | disposition home or self-care (01) | LOC: SLEEP 08-14 09:07 | PROVIDERS: PCP Internal Medicine; Visit Provider Nurse Practitioner Family | DX: G47.33 Obstructive sleep apnea (adult) (pediatric) (principal) | CPT/HCPCS: 95811 ==

== ENCOUNTER 2020-10-03 16:35 | Emergency (ER) | payer MEDICARE, MEDICAID, SELFPAY ==
[2020-10-03 16:51] VITALS: BP 101/53; PULSE 106; RESP 26; TEMP 37.8; O2SAT 91; BMI 32.1
--- NOTE | 2020-10-03 17:11 | XRR_ITS ---
PROCEDURE INFORMATION: Exam: XR Chest Exam date and time: 10/03/2020 5:11 PM Age: 60 years old Clinical indication: Cough and shortness of breath; Additional info: Covid TECHNIQUE: Imaging protocol: XR of the chest. Views: 1 view. COMPARISON: CR XR chest 1V portable [id number] 12/26/2019 12:44 PM FINDINGS: Limitations: Patient is rotated towards the right. Lungs: No focal consolidation is identified. Pleural spaces: Unremarkable. No pleural effusion. No pneumothorax. Heart/Mediastinum: Heart is within normal limits of size. Bones/joints: Unremarkable. XR/XR chest 1V portable [id number] IMPRESSION: No acute infiltrate.
== END 2020-10-03 18:00 | disposition left against medical advice (07) ==
PROVIDERS: Emergency Provider Family Medicine; PCP Nurse Practitioner Family
DX: Z53.21 Procedure and treatment not carried out due to patient leaving prior to being seen by health care provider (principal)
CPT/HCPCS: 71045

== ENCOUNTER → 2020-10-31 10:18 | Outpatient (BNVA) | payer MEDICARE, MEDICAID, SELFPAY | PROVIDERS: PCP Nurse Practitioner Family; Visit Provider Internal Medicine | DX: Z79.899 Other long term (current) drug therapy (principal); R53.83 Other fatigue; M06.39 Rheumatoid nodule, multiple sites | CPT/HCPCS: 36415; 80053; 81001; 82306; 82607; 83540; 84439; 85025; 85651; 86140; 87077; 87086; 87186 ==

== ENCOUNTER → 2020-11-12 08:55 | Outpatient (BNVA) | payer MEDICARE, MEDICAID, SELFPAY | PROVIDERS: PCP Nurse Practitioner Family; Visit Provider Internal Medicine | DX: M06.9 Rheumatoid arthritis, unspecified (principal); M54.9 Dorsalgia, unspecified; Z79.899 Other long term (current) drug therapy; R06.00 Dyspnea, unspecified; E87.6 Hypokalemia; N17.9 Acute kidney failure, unspecified; F17.200 Nicotine dependence, unspecified, uncomplicated | CPT/HCPCS: 99214 ==

== ENCOUNTER 2020-11-12 16:11 | Outpatient (CLI) | payer MEDICARE, MEDICAID, SELFPAY ==
--- NOTE | 2020-11-12 16:26 | XR_ITS ---
WS: [id number] XR chest 2V* [id number] REASON FOR EXAM: Z79.899 - Other jail (current) drug therapy FINDINGS: The chest is unchanged compared to previous examination of 12/22/2019. Mild tortuosity the thoracic aorta. Heart size is normal. Calcified granulomatous disease in both hemithoraces no active pulmonary parenchymal pleural disease. XR/XR chest 2V* [id number] IMPRESSION: No acute chest abnormality.
--- NOTE | 2020-11-12 16:26 | XR_ITS ---
WS: [id number] XR lumbar spine 2-3V* [id number] REASON FOR EXAM: M54.9 - Dorsalgia, unspecified FINDINGS: The examination is unchanged compared to 03/26/2020. Mild rotatory scoliosis convex left. There is no significant vertebral body compression deformity or focal vertebral body lesion. There is mild narrowing of the intervertebral disc spaces of the lumbar spine relatively uniform in severity. XR/XR lumbar spine 2-3V* [id number] IMPRESSION: Stable degenerative spondylosis as above.
== END 2020-11-12 16:12 | disposition home or self-care (01) ==
LOC: RAD 16:15
PROVIDERS: PCP Nurse Practitioner Family; Visit Provider Internal Medicine
DX: M54.9 Dorsalgia, unspecified (principal); Z79.899 Other long term (current) drug therapy
CPT/HCPCS: 71046; 72100

== ENCOUNTER 2020-11-14 13:12 | Outpatient (CLI) | payer MEDICARE, MEDICAID, SELFPAY ==
--- NOTE | 2020-11-14 14:00 | XR_ITS ---
WS: [id number] PROCEDURE: XR chest 2V* [id number] CLINICAL INFORMATION: COUGH COMPARISON: November 12, 2020 FINDINGS: Heart: Normal cardiac silhouette. Lungs: Lungs are clear. No consolidation or pleural fluid. Moderate chronic emphysematous changes. No acute pulmonary infiltrates. Bones: Osteopenia. XR/XR chest 2V* 10525 IMPRESSION: Moderate chronic emphysematous changes. No acute pulmonary infiltrates.
== END 2020-11-14 13:13 | disposition home or self-care (01) ==
PROVIDERS: PCP Nurse Practitioner Family; Visit Provider Nurse Practitioner Family
DX: R05 Cough (principal)
CPT/HCPCS: 71046

== ENCOUNTER 2020-12-07 10:04 | Outpatient (CLI) | payer MEDICARE, MEDICAID, SELFPAY ==
--- NOTE | 2020-12-07 10:08 | CT_ITS ---
WS: [id number] LDCT LUNG CANCER SCREENING TECHNIQUE: Noncontrast CT of the chest with coronal and sagittal reformatted images. CLINICAL INFORMATION: HX OF TOBACCO USE COMPARISON: CTA December 26, 2019 DLP: 50.62 mGy.cm DIvol: 1.[address] scans at [facility] use at least one of these dose optimization techniques: automat ed exposure control; mA and/or kV adjustment per patient size (includes targeted exams where dose is matched to clinical indication); or iterative reconstruction. FINDINGS: Moderate chronic centrilobular emphysematous changes. Fibrosis in the lung apices. Normal caliber tho racic aorta. Calcified anterior mediastinal lymph nodes. No lymphadenopathy. Marked enlargement of th e left ventricle unchanged. No axillary lymphadenopathy. Adrenal glands are normal. Normal [employer] n. CT/CT lung screening [id number] IMPRESSION: LUNG-RADS: 1-Negative FOLLOW UP: 12 Month: Continue annual screening with LDCT
== END 2020-12-07 10:05 | disposition home or self-care (01) ==
LOC: RAD 10:06
PROVIDERS: PCP Nurse Practitioner Family; Visit Provider Family Medicine
DX: Z12.2 Encounter for screening for malignant neoplasm of respiratory organs (principal); Z87.891 Personal history of nicotine dependence
CPT/HCPCS: 71271

== ENCOUNTER 2021-02-23 21:06 | Inpatient (IN) | payer MEDICARE, MEDICAID, SELFPAY ==
--- NOTE | 2021-02-23 21:18 | W.ED.SOB ---
HPI - SOB/Dyspnea General: Chief Complaint: Arrhythmia/Palpitations Stated Complaint: sob, elvated HR Time Seen by Provider: 02/23/21 21:18 History of Present Illness: HPI Narrative: Ms. 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 She endorses shortness of breath starting last night. She has been at her baseline health and the only other thing that she can think of is that she got a spider bite on her finger. No history of allergic reactions to spider bites. Overnight she woke up and felt short of breath. She tried breathing treatment which mildly improved her symptoms however they returned. She now has moderate to severe intensity shortness of breath. She has associated generalized malaise, she has had a few episodes of diarrhea's and nausea. Overall the course of symptoms has been worsening. No other significant change in health, infectious symptoms, exacerbating relieving factors identified. No longer on eliquis for somewhat unclear reasons, perhaps bleeding history. Review of Systems General: Reports: 10 or more systems reviewed and unremarkable except in HPI and below PFSH ED PFSH: Medical History (Updated 02/27/21 @ 00:00 by ) Atrial fibrillation Atrial flutter CHF (congestive heart failure) COPD (chronic obstructive pulmonary disease) Edema leg Emphysema/COPD Fibromyalgia GERD (gastroesophageal reflux disease) History of coronary angiogram Hypertension Hypotension Nonischemic cardiomyopathy Ejection fraction 25% Osteoarthritis Rheumatoid arthritis Sinus tachycardia Tobacco dependency Surgical History H/O: hysterectomy S/P tonsillectomy Family History Father Cancer Mother Cancer Sister Cancer Other CAD (coronary artery disease) Hyperlipidemia Hypertension Lung disease Denies family history of Psychiatric illness Social History Smoking and tobacco status: current every day smoker Alcohol intake: never History of recent travel: No Physical Exam Narrative: EXAM NARRATIVE: GENERAL/CONSTITUTIONAL - somewhat ill-appearing. Obese Eyes - PERRL, no conjunctival injection ENMT - Atraumatic external nose and ears. Moist mucous membranes NECK - supple. trachea midline CARDIOVASCULAR - tachycardic rate and indeterminate rhythm. Normal peripheral perfusion. RESPIRATORY - coarse auscultation bilaterally. ABDOMEN/GI - Nontender/Nondistended. No tenderness to percussion or evidence of peritonitis MSK - Extremities without obvious deformity or tenderness to palpation. Right third digit examined, no obvious insect bite/wound noted, mildly swollen however distal cap refill and sensation intact. SKIN - Warm, Dry NEURO - alert and appropriately oriented. Moves all extremities equally. Course ED course: - Patient was seen and evaluated by me at bedside - Patient placed on cardiac monitors, IV access obtained - Initial evaluation notable for likely A. fib with RVR, ill appearance, tachypnea. - Cardizem 20 mg ordered followed by drip. - Improvement in heart rate from 170s to 140s, additional 20 mg ordered with improvement in heart rate to right around 100, appears to be atrial fibrillation. - Labs notable for no leukocytosis. Normal hemoglobin. No acute electrolyte abnormalities to explain patient's symptoms. ABG largely unremarkable with compensated pH. Initial troponin is mildly elevated. - Imaging notable for no lobar consolidation on chest x-ray. - Upon serial reexamination after treatment the patient was improved with heart rate improvement. She endorsed significantly improved shortness of breath. - Discussed case with hospitalist with plan to admit on Cardizem drip for A. fib with RVR. - Shortly after speaking with the patient and noted improvement patient became unresponsive and ventricular fibrillation was noted. - CPR was initiated. Patient defibrillated x1. Approximately 30 more seconds of CPR and patient showed purposeful movement. Pulses present with strong femoral pulse. - Patient mentation appears baseline without focal neurologic deficit. - I discussed the case with cardiology, patient has new heart rate rhythm which appears to be sinus with frequent ectopy. Plan to transition to amiodarone drip without loading dose. Also plan to initiate anticoagulation with Lovenox. - Updated admitting physician regarding events. Updated family at bedside. Vital Signs: Vital signs: Vital Signs Temperature 98.4 F 02/26/21 13:44 Pulse Rate 85 02/26/21 13:44 Respiratory Rate 12 02/26/21 13:44 Blood Pressure 125/69 02/26/21 13:44 Pulse Oximetry 95 02/26/21 13:44 MDM - SOB/Dyspnea Medical Records: Attestation: I reviewed the patient's medical records. Lab Data: Attestation: I reviewed the patient's lab results. Labs: Lab Results 02/23/21 02/23/21 02/23/21 21:28 21:44 21:44 WBC 7.7 10^3/uL 10^3/ uL (4.0-10.0) RBC 4.44 10^6/uL 10^6 /uL (4.1-5.3) Hgb 13.2 g/dL g/dL (11.5-15.3) Hct 41.8 % % (37.0-47.0) MCV 94.1 fl fl (81-99) MCH 29.7 pg pg (28.0-34.0) MCHC 31.6 g/dL g/dL (30.0-36.0) RDW 13.2 % % (12.1-15.1) Plt Count 249 10^3/cmm 10^3 /cmm (130-400) MPV 11.2 fL H fL (7.4-10.4) Neut % (Auto) 51.5 % % Lymph % (Auto) 38.3 % % Citrus % (Auto) 7.1 % % Eos % (Auto) 2.2 % % Baso % (Auto) 0.6 % % Neut # (Auto) 3.96 10^3/uL 10^3 /uL (1.8-7.7) Lymph # (Auto) 3.0 10^3/uL 10^3/ uL (0.8-4.8) Citrus # (Auto) 0.6 10^3/uL 10^3/ uL (0.2-0.9) Eos # (Auto) 0.2 10^3/uL 10^3/ uL (0.0-0.8) Baso # (Auto) 0.1 10^3/uL 10^3/ uL (0.0-0.1) Nucleated RBC % (a uto) 0 % % Nucleated RBCs # 0.0 /100WBC /100W BC Specimen Type Arterial Sample Site Radial, right ABG pH 7.42 (7.35-7.45) ABG pCO2 42.3 mmHg mmHg (35-45) ABG pO2 62.2 mmHg L mmHg (80.0-100.0) ABG HCO3 27.5 mmol/L H mmo l/L (22-26) ABG Base Excess 2.7 mmol/L H mmol /L (-2.0-2.0) David Test Pos Hematocrit 39.1 % % (37-47) O2 Delivery Device Room air Architectural Coating Finisher ID [id number] Sodium 145 mmol/L mmol/L (136-145) Potassium 4.2 mmol/L mmol/L (3.5-5.1) Chloride 106 mmol/L mmol/L (98-107) Carbon Dioxide 26 mmol/L mmol/L (22-29) Anion Gap 17.2 (5-19) BUN 16 mg/dL mg/dL (8-23) Creatinine 1.2 mg/dL H mg/dL (0.5-0.9) GFR Calculation 45.4 mL/min L mL/ min (90-130) Glucose 103 mg/dL mg/dL (65-115) Calculated Osmolal ity 301 mOsm/kg H mOs m/kg (285-295) Lactate Calcium 8.8 mg/dL mg/dL (8.5-10.5) Magnesium 2.1 mg/dL mg/dL (1.7-2.3) Total Bilirubin 0.2 mg/dL mg/dL (0.15-1.2) AST 18 U/L U/L (0-32) ALT 11 U/L U/L (0-33) Alkaline Phosphata se 135 IU/L H IU/L (35-105) Troponin T Baselin e NT-Pro-B Natriuret Pep 3862 pg/mL H pg/m L (0-125) Total Protein 7.1 g/dL g/dL (6.6-8.7) Albumin 3.9 g/dL g/dL (3.5-5.2) Globulin 3.2 g/dL g/dL (1.3-4.6) TSH 2.89 uIU/mL uIU/m L (0.27-4.20) 02/23/21 02/23/21 21:44 21:44 WBC RBC Hgb Hct MCV MCH MCHC RDW Plt Count MPV Neut % (Auto) Lymph % (Auto) Citrus % (Auto) Eos % (Auto) Baso % (Auto) Neut # (Auto) Lymph # (Auto) Citrus # (Auto) Eos # (Auto) Baso # (Auto) Nucleated RBC % (a uto) Nucleated RBCs # Specimen Type Sample Site ABG pH ABG pCO2 ABG pO2 ABG HCO3 ABG Base Excess David Test Hematocrit O2 Delivery Device Architectural Coating Finisher ID Sodium Potassium Chloride Carbon Dioxide Anion Gap BUN Creatinine GFR Calculation Glucose Calculated Osmolal ity Lactate 2.1 mmol/L mmol/L (0.5-2.2) Calcium Magnesium Total Bilirubin AST ALT Alkaline Phosphata se Troponin T Baselin e 17 ng/L H ng/L (0-10) NT-Pro-B Natriuret Pep Total Protein Albumin Globulin TSH EKG Data^: EKG 1: Attestation: I personally reviewed and interpreted this EKG as follows: EKG Interpretation Date: 02/23/21 EKG interpretation time: 21:25 Interpretation: Twelve-lead EKG shows a regular rhythm at a rate of 170. No CT interval, QRS duration 105, QTc 474. Borderline axis. Interpretation: Atrial fibrillation with rapid ventricular response. EKG 2: Attestation: I personally reviewed and interpreted this EKG as follows: EKG Interpretation Date: 02/23/21 EKG interpretation time: 23:20 Interpretation: Twelve-lead EKG shows a regular rhythm at a rate of 88. CT interval 156, QRS duration 109, QTc 445. Normal axis. Interpretation: Sinus rhythm. Nonspecific ST segment abnormalities. Critical Care Time Critical Care Time: Critical Care Time: Yes Total Critical Care Time: 75 Attestation: Due to a high probability of clinically significant, possibly life threatening deterioration, the patient required my highest level of attention and preparedness to intervene emergently and I personally spent this critical care time directly and personally managing the patient. This critical care time included obtaining a history; examining the patient; pulse oximetry; ordering and review of laboratory and imaging studies; arranging urgent treatment with development of a management plan; evaluation of patient's response to treatment; frequent reassessment; and, discussions with other providers as applicable. It was exclusive of separately billable procedures. Discharge Plan Discharge Patient Disposition: Admitted As Inpatient Admit Provider: Oswaldo Carcamo Clinical Impression: Atrial fibrillation with rapid ventricular response, Shortness of breath, Cardiac arrest with ventricular fibrillation Condition: Stable Discharge Diet: Cardiac Discharge Activity: Resume usual activity Coding Level of Care Code ED Engineering Director for Kishan Sandhu
--- NOTE | 2021-02-23 21:28 | XRR_ITS ---
PROCEDURE INFORMATION: Exam: XR Chest Exam date and time: 02/23/2021 9:28 PM Age: 61 years old Clinical indication: Shortness of breath; Additional info: Tachycardia, SOB TECHNIQUE: Imaging protocol: XR of the chest. Views: 1 view. COMPARISON: CR XR chest 2V* [id number] 11/14/2020 2:24 PM FINDINGS: Lungs: Unremarkable. No consolidation. Pleural spaces: Unremarkable. No pleural effusion. No pneumothorax. Heart/Mediastinum: Possible mild cardiomegaly. Bones/joints: Unremarkable. XR/XR chest 1V portable [id number] IMPRESSION: Possible mild cardiomegaly.Heart size not optimally evaluated with a single AP view of the chest.
--- NOTE | 2021-02-23 21:29 | ECG_ITS ---
[facility] Test Date: 2021-02-23 Pat Name: Shana Roy Department: Room: Gender: Female Credit Risk Associate: : 1960 Requested By: Hussain Shane Order Number: [id number] Patty MD: Kayla Olivera M.D. Measurements Intervals Jenkins Rate: 170 P: [place]: QRS: 60 QRSD: 105 T: 265 QT: 281 QTc: 474 Interpretive Statements ATRIAL flutter WITH RAPID VENTRICULAR RESPONSE ST DEVIATION AND MODERATE T-WAVE ABNORMALITY, CONSIDER LATERAL ISCHEMIA ST DEVIATION AND MODERATE T-WAVE ABNORMALITY, CONSIDER INFERIOR ISCHEMIA CRITICAL TEST RESULT Compared to ECG 12/26/2019 14:01:51 Sinus rhythm no longer present Ventricular premature complex(es) no longer present T-wave abnormality still present Possible ischemia still present Electronically Signed On 02-25-2021 15:38:04 LOAN PROCESSING SUPERVISOR by Kayla Olivera M.D. [id number]
[2021-02-23 21:49] VITALS: BP 96/81; PULSE 170; RESP 16; TEMP 36.6; O2SAT 100
[2021-02-23] MEDS: sodium chloride 0.9% 500 ML IV (21:49)
[2021-02-23 22:05] LABS: Basophils # 0.1 10^3/uL (0.0-0.1); Basophils % 0.6 %; Eosinophils # 0.2 10^3/uL (0.0-0.8); Eosinophils % 2.2 %; Hematocrit 41.8 % (37.0-47.0); Hemoglobin 13.2 g/dL (11.5-15.3); Lymphocytes % 38.3 %; Mean Corpuscular HGB Conc 31.6 g/dL (30.0-36.0); Mean Corpuscular Hemoglobin 29.7 pg (28.0-34.0); Mean Corpuscular Volume 94.1 fl (81-99); Mean Platelet Volume 11.2 fL (7.4-10.4); Monocytes # 0.6 10^3/uL (0.2-0.9); Monocytes % 7.1 %; Neutrophils # 3.96 10^3/uL (1.8-7.7); Neutrophils % 51.5 %; Nucleated Red Blood Cells % 0 %; Platelet Count 249 10^3/cmm (130-400); Red Blood Count 4.44 10^6/uL (4.1-5.3); Red Cell Distribution Width 13.2 % (12.1-15.1); White Blood Count 7.7 10^3/uL (4.0-10.0)
[2021-02-23 22:25] LABS: ABG PCO2 42.3 mmHg (35-45); ABG PH Result 7.42 (7.35-7.45); Arterial Blood Gas Hematocrit 39.1 % (37-47); Base Excess ABG 2.7 mmol/L (-2.0-2.0); Blood Gas Allen Test Pos; Blood Gas Sample Site Radial, right; Blood Gas Sample Type Arterial; HCO3 ABG 27.5 mmol/L (22-26); Oxygen Device ROOM AIR; PO2 ABG 62.2 mmHg (80.0-100.0)
[2021-02-23 22:28] LABS: Lactate (Lactic Acid level) 2.1 mmol/L (0.5-2.2)
[2021-02-23 22:31] LABS: Troponin(5th) Baseline 17 ng/L (0-10)
[2021-02-23 22:41] LABS: Alanine Aminotransferase 11 U/L (0-33); Albumin Level 3.9 g/dL (3.5-5.2); Alkaline Phosphatase 135 IU/L (35-105); Anion Gap 17.2 (5-19); Aspartate Amino Transferase 18 U/L (0-32); Blood Urea Nitrogen 16 mg/dL (8-23); Calcium 8.8 mg/dL (8.5-10.5); Carbon Dioxide 26 mmol/L (22-29); Chloride 106 mmol/L (98-107); Globulin 3.2 g/dL (1.3-4.6); Glomerular Filtration Rate 45.4 mL/min (90-130); Glucose 103 mg/dL (65-115); Magnesium 2.1 mg/dL (1.7-2.3); NT Pro B Type Natriuretic Pept 3862 pg/mL (0-125); Osmolality Calculated 301 mOsm/kg (285-295); Potassium 4.2 mmol/L (3.5-5.1); Sodium 145 mmol/L (136-145); Thyroid Stimulating Hormone 2.89 uIU/mL (0.27-4.20); Total Bilirubin 0.2 mg/dL (0.15-1.2); Total Protein 7.1 g/dL (6.6-8.7)
[2021-02-23 22:57] VITALS: BP 98/74; PULSE 107; RESP 18; O2SAT 98
--- NOTE | 2021-02-23 23:02 | P.HP_ITS ---
Providers/Chief Complaint Admitting Physician: Oswaldo Carcamo Primary Care Provider: Saman Florez NP Chief Complaint: sob, elvated HR History of Present Illness 61-year-old female with a past medical history significant for tobacco abuse, COVID-19 infection, rheumatoid arthritis,( Enbrel, hydrochloric when, prednisone), chronic obstructive pulmonary disease, chronic combined heart f ailure with EF of 20% / grade 4 diastolic dysfunction noted to be nonischemic and paroxysmal atrial fibrillation who presented to the hospital with shortness of breath. This was associated with substernal chest pain and palpitations. Upon arrival to ER she was noted to be in atrial fibrillation with rapid ventricular response. This was treated with cardizem 20 mg IV x1 followed by initiation of cardizem drip. While in ER she became unresponsive during which time she was noted to be in V-Fib arrest. CPR was initiated briefly. ROSC was obtained shortly after defibrillation. Rhythm was noted to be NSR post shock. Cardiology was consulted and recommended initiation of amiodarone drip. Also given Lovenox 90 mg SQ x1 in ER. Previusly was on eliquis which she had discontinued due to easy bruising and prolonged bleeding with mild cuts. Denied any prior history of GI bleed. Lab work up Showed a WBC of 7.7, hemoglobin of 13.2, hematocrit of 41.8 and a platelet count of 249. Sodium 145, potassium 4.2, chloride 106, bicarb of 26, BUN of 16 and creatinine of 1.2.Troponin T delta of -2.66. ProBNP elevated at 3862. TSH of 2.8. Chest x-ray did not show any acute abnormality. Review of Systems General: Reports: 10 or more systems reviewed and unremarkable except in HPI and below Medications/Allergies Home Medications Medication Instructions Recorded Confirmed Last Taken Type albuterol sulfate 2 puff INHALATION Q6H PRN 09/19/19 11/12/20 Unknown History diclofenac sodium 4 g TOPICAL QID PRN 11/11/19 11/12/20 Unknown History gabapentin 400 mg capsule 400 mg PO TID PRN cap 11/14/19 11/12/20 12/23/19 History melatonin 3 mg capsule 6 mg PO BEDTIME PRN 12/22/19 11/12/20 Unknown History albuterol sulfate 2.5 mg INHALATION Q6H PRN 12/26/19 11/12/20 Unknown History omeprazole 40 mg capsule,delayed 40 mg PO DAILY 30 Days #30 each 12/28/19 11/12/20 Unknown Rx release furosemide 40 mg tablet 40 mg PO BID #180 tab 02/16/20 11/12/20 Unknown Rx potassium chloride 20 mEq 30 meq PO BID #270 tab 03/28/20 11/12/20 Unknown Rx tablet,extended release metoprolol succinate 50 mg 75 mg PO DIRECTED #45 tab 05/28/20 11/12/20 Unknown Rx tablet,extended release 24 hr ferrous sulfate 325 mg (65 mg 325 mg PO DAILY #21 tab 08/01/20 11/12/20 Unknown Rx iron) tablet magnesium oxide 200 mg PO DAILY #30 tab 08/01/20 11/12/20 Unknown Rx vitamin B complex 1 tab PO DAILY #30 tab 08/01/20 11/12/20 Unknown Rx cholecalciferol (vitamin D3) 1,250 50,000 unit PO .weekly #13 cap 10/02/20 11/12/20 Unknown Rx mcg (50,000 unit) capsule zinc sulfate 50 mg zinc (220 mg) 50 mg PO DAILY #30 cap 10/02/20 11/12/20 Unknown Rx capsule folic acid 1 mg tablet 1 mg PO DAILY #90 tab 10/26/20 11/12/20 Unknown Rx apixaban 5 mg tablet 5 mg PO BID #180 tab 11/06/20 11/12/20 Unknown Rx diclofenac sodium 1 % topical gel 2 g TOPICAL QID #100 gm 11/12/20 11/12/20 Unknown Rx potassium chloride 20 mEq oral 20 meq PO DAILY #30 ea 11/12/20 11/12/20 Unknown Rx packet metolazone 2.5 mg tablet 2.5 mg PO DAILY PRN #30 tab 12/25/20 Unknown Rx etanercept 50 mg/mL (1 mL) 50 mg SUBCUT .qweek #4 ml 02/18/21 Unknown Rx subcutaneous syringe hydroxychloroquine 200 mg tablet 200 mg PO BID #60 tab 02/18/21 Unknown Rx prednisone 5 mg tablet 5 mg PO DAILY PRN #30 tab 02/18/21 Unknown Rx Allergies Allergy/AdvReac Type Severity Reaction Status Date / Time dronedarone Allergy Severe rash, Verified 02/23/21 21:57 swelling doxacurium Allergy HIVES,RASH Verified 02/23/21 21:57 sulfamethoxazole Allergy ALGY-Rash Verified 02/23/21 21:57 [From Bactrim] trimethoprim [From Bactrim] Allergy ALGY-Rash Verified 02/23/21 21:57 PFSH Acute PFSH: Medical History Atrial fibrillation Atrial flutter CHF (congestive heart failure) COPD (chronic obstructive pulmonary disease) Edema leg Emphysema/COPD Fibromyalgia GERD (gastroesophageal reflux disease) History of coronary angiogram Hypertension Hypotension Nonischemic cardiomyopathy Ejection fraction 25% Osteoarthritis Rheumatoid arthritis Sinus tachycardia Tobacco dependency Surgical History H/O: hysterectomy S/P tonsillectomy Family History Father Cancer Mother Cancer Sister Cancer Other CAD (coronary artery disease) Hyperlipidemia Hypertension Lung disease Denies family history of Psychiatric illness Social History Smoking and tobacco status: current every day smoker Alcohol intake: never History of recent travel: No Vitals/I&O/Wt Last Vital Signs Temp 97.8 F 02/23/21 21:49 Pulse 107 H 02/23/21 22:57 Resp 18 02/23/21 22:57 BP 98/74 02/23/21 22:57 Pulse Ox 98 02/23/21 22:57 Physical Exam Narrative: EXAM NARRATIVE: General; Alert, awake in mod distress due to pain HEENT; Grossly unremarkable CVS; RRR Chest; CTABL ABD: Soft, NT,ND Ext : No edema Data : 02/24/21 04:44 02/23/21 21:44 A&P Assessment and plan (1) Atrial fibrillation with rapid ventricular response: Status: Acute (2) Cardiac arrest with ventricular fibrillation: Status: Acute (3) Acute kidney injury: Status: Acute (4) Rheumatoid arthritis: Status: Acute (5) Tobacco dependency: Status: Chronic (6) Chronic combined systolic and diastolic heart failure: Status: Acute (7) Low blood potassium: Status: Acute Additional A&P Information V-Fib Arrest S/p CPR/Defib See code sheet Currently NSR Amidarone drip as ordered Cardiology consulted in ER Check ECHO Will likler need cardiac Cath Remain NPO Repeat labs in am Atrial Fib with RVR Initially on admin On amidarone Lovenox 1mg/kg/BID ECHO Chronic Combined HF EF 20%/Grade 4 DD Stable Cautious fluids Daily weight Repeat ECHO in am May need eval for AICD Non-ischemic Chronic stage 3 kidney disease Creatinine stable Repeat BMP in am Renal dosing Monitor u/o Additional medical problems Hypertension Rheumatoid arthritis COPD Tobacco abuse Fibromyalgia DVT ppx Lovenox Code Status Full Code Attestations Medical Necessity Statement*: Anticipate over 2 midnights stay in hospital for evaluation and treatment Time Spent in Patient Care: Greater than 35 minutes (>than 50% of time spent in counselling and/or direct pt care on unit) . Coding Level of Care Code Acute Scooter Mechanic for Chg Fwd Diagnoses Atrial fibrillation with rapid ventricular response I48.91 Cardiac arrest with ventricular fibrillation I46.9; I49.01 Acute kidney injury N17.9 Rheumatoid arthritis M06.9 Tobacco dependency F17.200 Chronic combined systolic and diastolic heart failure I50.42 Low blood potassium E87.6
--- NOTE | 2021-02-23 23:17 | PC.NURSE ---
2310 patient became unresponsive and was showing v. tach on monitor. Staff went into room to evaluate patient. Patient found to be pulseless. CPR initiated. 2312 - patient shocked at 120 joules per order from Dr. Shane. CPR resumed. 2313 - patient regained pulse and became alert and talking to staff.
--- NOTE | 2021-02-23 23:29 | ECG_ITS ---
[facility] Test Date: 2021-02-23 Pat Name: Shana Roy Department: Room: Gender: Female Sql Server Developer: : 1960 Requested By: Hussain Shane Order Number: [id number] Patty MD: Kayla Olivera M.D. Measurements Intervals [place] Rate: 88 P: 45 VT: 156 QRS: 79 QRSD: 109 T: 138 QT: 366 QTc: 445 Interpretive Statements SINUS RHYTHM WITH FREQUENT SUPRAVENTRICULAR PREMATURE COMPLEXES POSSIBLE LEFT ATRIAL ENLARGEMENT MODERATE INTRAVENTRICULAR CONDUCTION DELAY ST DEVIATION AND MODERATE T-WAVE ABNORMALITY, CONSIDER LATERAL ISCHEMIA ST DEVIATION AND MODERATE T-WAVE ABNORMALITY, CONSIDER INFERIOR ISCHEMIA Compared to ECG 02/23/2021 21:24:49 Intraventricular conduction delay now present Atrial fibrillation no longer present T-wave abnormality still present Possible ischemia still present Electronically Signed On 02-25-2021 22:51:42 SPD MANAGER by Kayla Olivera M.D. [id number]
--- NOTE | 2021-02-23 23:37 | XRR_ITS ---
PROCEDURE INFORMATION: Exam: XR Chest Exam date and time: 02/23/2021 11:37 PM Age: 61 years old Clinical indication: Dyspnea and other: Post code TECHNIQUE: Imaging protocol: XR of the chest. Views: 1 view. COMPARISON: CR (CHEST, ) 02/23/2021 9:59 PM FINDINGS: Tubes, catheters and devices: Transcutaneous pacer/defibrillator patch is in place. Lungs: Unchanged Pleural spaces: Unremarkable. No pleural effusion. No pneumothorax. Heart/Mediastinum: Unchanged Bones/joints: No acute findings. XR/XR chest 1V portable [id number] IMPRESSION: Interval placement of transcutaneous pacer/defibrillator patch but otherwise no change.
[2021-02-23 23:56] LABS: ABG PCO2 42.5 mmHg (35-45); ABG PH Result 7.39 (7.35-7.45); HCO3 ABG 25.9 mmol/L (22-26); Oxygen Saturation ABG 93.1; PO2 ABG 66.8 mmHg (80.0-100.0); Potassium Level - ABG 3.4 mmol/L (3.5-5.0)
[2021-02-23 23:57] LABS: Blood Gas Allen Test P; Blood Gas Sample Type ARTERIAL; Oxygen Device NC
[2021-02-23 23:58] LABS: Arterial Blood Gas Hematocrit 42.8 % (37-47); Blood Gas Sample Site R.RADIAL; Ionized Calcium Level - ABG 1.2 mmol/L (1.1-1.4); Total Hemoglobin 13.9 g/dL (12-16)
[2021-02-23 23:59] LABS: Carboxyhemoglobin 2.2 %THgb (0.4-20.1); HGB O2 Sat 90.3 % (95-100)
[2021-02-24] VITALS (106 sets, daily range): BP systolic 92–143; BP diastolic 60–103; PULSE 81–103; RESP 14–40; TEMP 36.3–36.6; O2SAT 88–99
[2021-02-24 00:58] LABS: Troponin 5 2HR 14.34 ng/L (0-10)
[2021-02-24 01:01] LABS: Troponin 5 2HR Delta -2.66 ABS# (0-10)
--- NOTE | 2021-02-24 01:06 | USCV_ITS ---
Shana Roy Age: 61 Gender: F : 1960 Exam Date: 02/24/2021 07:19 Ordering Phys: Oswaldo Carcamo MD Technologist: CARLIN Exam Location: [facility] [place] Indication: Vfib arrest/afib/HF BP: 123 / 81 HR: 86 Rhythm: Sinus Technical Quality: Suboptimal MEASUREMENTS (Male / Female) Normal Values 2D ECHO LV Diastolic Diameter PLAX 6.1 cm 4.2 - 5.9 / 3.9 - 5.3 cm LV Systolic Diameter PLAX 5.7 cm IVS Diastolic Thickness 1.1 cm 0.6 - 1.0 / 0.6 - 0.9 cm IVS Systolic Thickness 1.1 cm LVPW Diastolic Thickness 0.8 cm 0.6 - 1.0 / 0.6 - 0.9 cm LVPW Systolic Thickness 1.0 cm RV Chamber Size 2.2 cm LVOT Diameter 2.0 cm LV Ejection Fraction 2D Teich 14.7 % LV Ejection Fraction MOD 2C 27.8 % LV Ejection Fraction 2C AL 31.9 % LA Diameter 4.0 cm LA Width 3.9 cm LA Height 4.9 cm RA Width 3.0 cm RA Height 5.4 cm Aorta at Sinotubular Diameter 3.0 cm M-MODE LV Diastolic Diameter MM 4.8 cm 4.2 - 5.9 / 3.9 - 5.3 cm LV Systolic Diameter MM 4.5 cm LV Ejection Fraction MM Teich 14.8 % IVS Diastolic Thickness MM 1.2 cm 0.6 - 1.0 / 0.6 - 0.9 cm IVS Systolic Thickness MM 1.3 cm LVPW Diastolic Thickness MM 1.2 cm 0.6 - 1.0 / 0.6 - 0.9 cm LVPW Systolic Thickness MM 1.4 cm RV Diastolic Diameter MM 0.8 cm Aortic Annulus Diameter 3.6 cm LA Ao Ratio MM 1.2 MV E Point Septal Separation 2.3 cm DOPPLER AV Peak Velocity 91.0 cm/s LVOT Peak Velocity 87.0 cm/s AV Area Cont Eq vti 3.5 cm squared AV Area Cont Eq pk 2.9 cm squared MV Area PHT 5.0 cm squared Mitral E to A Ratio 1.5 MV E' Velocity 61.0 cm/s Mitral E to MV E' Ratio 22.8 Mitral E to LV E' Lateral Ratio 20.4 Mitral E to LV E' Septal Ratio 25.9 TR Peak Velocity 226.7 cm/s TR Peak Gradient 20.6 mmHg TV Peak E Velocity 53.0 cm/s Right Atrial Pressure 3.0 mmHg Pulmonary Artery Systolic Pressu 23.6 mmHg RV Acceleration Time 0.1 s RV Ejection Time 0.3 s RV AcT/ET 0.3 FINDINGS Left Ventricle Dilated left ventricle. Severely decreased left ventricular systolic function. Left ventricular ejection fraction is estimated at 20 %. Severe global hypokinesis. Grade II diastolic dysfunction, moderately elevated filling pressures. Right Ventricle Normal right ventricular size and systolic function. Right ventricular systolic pressure 32 mmHg. Right Atrium Normal right atrial size. Right atrial pressure estimated at 3 mm Hg. Left Atrium Mildly to moderately increased left atrial size. Mitral Valve Mild mitral annular calcification. No mitral valve stenosis. Mild mitral valve regurgitation. Aortic Valve Aortic valve not well visualized. No aortic valve stenosis. No aortic valve regurgitation. Tricuspid Valve Structurally normal tricuspid valve. Trace tricuspid valve regurgitation. Pulmonic Valve Pulmonic valve not well visualized. No pulmonary valve stenosis. Trace pulmonary valve regurgitation. Pericardium No pericardial effusion. Prominent epicardial fat. Aorta Normal sized aortic root. Normal sized inferior vena cava with > 50% respiratory variation. CONCLUSIONS 1. Dilated left ventricle. Severely decreased left ventricular systolic function. Left ventricular ejection fraction is estimated at 20 %. Severe global hypokinesis. Grade II diastolic dysfunction, moderately elevated filling pressures. 2. Normal right ventricular size and systolic function. 3. Pulmonary artery pressure estimated at 32 mm Hg. 4. Mild mitral valve regurgitation. 5. Mildly to moderately increased left atrial size. 6. No significant change when compared to previous echocardiogram dated 09/19/2019. Kayla Olivera MD (Electronically Signed) Final Date: 24 February 2021 11:33 S
[2021-02-24 01:22] LABS: Glucose Point of Care 131 mg/dL (70-110)
[2021-02-24 02:10] LABS: Add Urine Microscopic? YES; Bilirubin Urine Neg (Negative); Blood Urine 2+ (Negative); Glucose Urine UA Norm (Normal); Ketones Urine Negative (Negative); Leukocyte Esterase Urine Negative (Negative); Nitrate Urine Negative (Negative); Protein Urine 3+ (Negative); Urine Color Yellow (Yellow); Urobilinogen Urine Norm (Negative); pH Urine 5 (5-7)
[2021-02-24 02:14] LABS: Add Urine Culture? No; Bacteria Urine 3+ /hpf; Squamous Epithelial Cell Urine 55-80 /hpf (0-5)
[2021-02-24] MEDS: enoxaparin 100 mg/mL Syringe 90 MG SUBCUT ×2 (02:14→14:11)
--- NOTE | 2021-02-24 03:29 | ECG_ITS ---
[facility] Test Date: 2021-02-24 Pat Name: Shana Roy Department: Room: ICU09 Gender: Female Blood Bank Laboratory Technologist: : 1960 Requested By: Hussain Shane Order Number: [id number] Patty MD: Kayla Olivera M.D. Measurements Intervals [place] Rate: 86 P: MD: QRS: 78 QRSD: 119 T: 109 QT: 404 QTc: 486 Interpretive Statements SINUS RHYTHM WITH FREQUENT SUPRAVENTRICULAR PREMATURE COMPLEXES MODERATE INTRAVENTRICULAR CONDUCTION DELAY [110+ ms QRS DURATION] MODERATE T-WAVE ABNORMALITY, CONSIDER ANTEROLATERAL ISCHEMIA [-0.1+ mV T-WAVE IN V3-V6] Compared to ECG 02/23/2021 23:18:56 T-wave abnormality still present Possible ischemia still present Electronically Signed On 02-25-2021 22:49:30 ELECTRON BEAM PHOTO MASK TECHNICIAN by Kayla Olivera M.D. [id number]
[2021-02-24] MEDS: sodium chloride 0.9% 1,000 ML 75 ML IV (04:45)
[2021-02-24 05:37] LABS: Troponin 5 6HR 16.59 ng/L (0-10); Troponin 5 6HR Delta -0.41 ng/L (0-12)
[2021-02-24 05:53] LABS: Platelet Count 204 10^3/cmm (130-400)
[2021-02-24] MEDS: ipratropium-albuterol 3 mL Neb INHALATION ×3 (09:34→20:05)
[2021-02-24 11:07] LABS: Basophils # 0.1 10^3/uL (0.0-0.1); Basophils % 0.8 %; Eosinophils # 0.1 10^3/uL (0.0-0.8); Eosinophils % 0.8 %; Hematocrit 40.1 % (37.0-47.0); Hemoglobin 12.4 g/dL (11.5-15.3); Lymphocytes # 2.4 10^3/uL (0.8-4.8); Lymphocytes % 34.2 %; Mean Corpuscular HGB Conc 30.9 g/dL (30.0-36.0); Mean Corpuscular Hemoglobin 30.5 pg (28.0-34.0); Mean Corpuscular Volume 98.8 fl (81-99); Mean Platelet Volume 13.1 fL (7.4-10.4); Monocytes # 0.6 10^3/uL (0.2-0.9); Monocytes % 8.4 %; Neutrophils # 3.94 10^3/uL (1.8-7.7); Neutrophils % 55.5 %; Nucleated Red Blood Cells % 0 %; Platelet Count 124 10^3/cmm (130-400); Red Blood Count 4.06 10^6/uL (4.1-5.3); Red Cell Distribution Width 13.4 % (12.1-15.1); White Blood Count 7.1 10^3/uL (4.0-10.0)
[2021-02-24 11:45] LABS: Blood Urea Nitrogen 17 mg/dL (8-23); Calcium 8.4 mg/dL (8.5-10.5); Carbon Dioxide 23 mmol/L (22-29); Chloride 109 mmol/L (98-107); Creatinine Clr Calc Pharmacy 72.6685; Glomerular Filtration Rate 63.2 mL/min (90-130); Glucose 98 mg/dL (65-115); Osmolality Calculated 294 mOsm/kg (285-295); Sodium 141 mmol/L (136-145)
[2021-02-24 11:47] LABS: Anion Gap 14.4 (5-19); Potassium 5.4 mmol/L (3.5-5.1)
--- NOTE | 2021-02-24 11:59 | P.CONIM_ITS ---
Providers/Reason For Consult Consulting Physician/Specialty*: Dr. Olivera, Cardiology Reason for Consult*: A. fib, V Fib arrest Attending Physician: Luis Lindo MD Primary Care Provider: Saman Florez NP History of Present Illness History of Present Illness Shana Roy is a 61 year old female with past medical history significant for strong family history of coronary artery disease, hyperlipidemia, obesity, CHF (HFrEF; LVEF=20-25%), atrial fibrillation/flutter on Eliquis, severe SOPHIA, RA, COPD/emphysema, fibromyalgia and GERD. She was previusly on eliquis which she had discontinued due to easy bruising and prolonged bleeding with mild cuts. Denied any prior history of GI bleed. Upon arrival to ER she was noted to be in atrial fibrillation with rapid ventricular response. This was treated with cardizem 20 mg IV x1 followed by initiation of cardizem drip. Her HR improved b ut shortly thereafter, she became unresponsive. Rhythm noted to be V-Fib at the time. CPR was initiated briefly. ROSC was obtained shortly after defibrillation. Rhythm was noted to be NSR post shock. She was given Lovenox 90 mg SQ x1 in ER. Lab work: WBC of 7.7, hemoglobin of 13.2. Sodium 145, potassium 4.2, BUN of 16 and creatinine of 1.2. Troponin T x 2 negative. ProBNP elevated at 3862. TSH of 2.8. Chest x-ray did not show any acute abnormality. She was started on amiodarone gtt. Today, she had 7-8 beats long run of NSVT. No chest pain. SOB for past few days. No LE edema. She is a poor historian. She has amiodarone 400 mg daily in her pill box and Eliquis that she tells me she stopped in 2020. She also has h/o recurrent syncope and in 10/2019 she had TTE that showed decrease in LV function and had LHC that showed normal coronaries. She at the time of exam is eager to have Sonic dinner that her daughter is bringing. She tells me she skips unnecessary medications. Review of Systems General: Reports: 10 or more systems reviewed and unremarkable except in HPI a nd below Meds/Allergies Home Medications and Allergies Home Medications Medication Instructions Recorded Confirmed Last Taken Type albuterol sulfate 2 puff INHALATION Q6H PRN 09/19/19 02/24/21 Unknown History diclofenac sodium 4 g TOPICAL QID PRN 11/11/19 02/24/21 Unknown History gabapentin 400 mg capsule 400 mg PO TID PRN cap 11/14/19 02/24/21 12/23/19 History melatonin 3 mg capsule 6 mg PO BEDTIME PRN 12/22/19 02/24/21 Unknown History albuterol sulfate 2.5 mg INHALATION Q6H PRN 12/26/19 02/24/21 Unknown History omeprazole 40 mg capsule,delayed 40 mg PO DAILY 30 Days #30 each 12/28/19 02/24/21 Unknown Rx release furosemide 40 mg tablet 40 mg PO BID #180 tab 02/16/20 02/24/21 Unknown Rx potassium chloride 20 mEq 30 meq PO BID #270 tab 03/28/20 02/24/21 Unknown Rx tablet,extended release ferrous sulfate 325 mg (65 mg 325 mg PO DAILY #21 tab 08/01/20 02/24/21 Unknown Rx iron) tablet magnesium oxide 200 mg PO DAILY #30 tab 08/01/20 02/24/21 Unknown Rx vitamin B complex 1 tab PO DAILY #30 tab 08/01/20 02/24/21 Unknown Rx zinc sulfate 50 mg zinc (220 mg) 50 mg PO DAILY #30 cap 10/02/20 02/24/21 Unknown Rx capsule folic acid 1 mg tablet 1 mg PO DAILY #90 tab 10/26/20 02/24/21 Unknown Rx metolazone 2.5 mg tablet 2.5 mg PO DAILY PRN #30 tab 12/25/20 02/24/21 Unknown Rx etanercept 50 mg/mL (1 mL) 50 mg SUBCUT .qweek #4 ml 02/18/21 02/24/21 Unknown Rx subcutaneous syringe hydroxychloroquine 200 mg tablet 200 mg PO BID #60 tab 02/18/21 02/24/21 Unknown Rx prednisone 5 mg tablet 5 mg PO DAILY PRN #30 tab 02/18/21 02/24/21 Unknown Rx amiodarone 400 mg PO DAILY 02/24/21 02/24/21 Unknown History aspirin 81 mg PO DAILY 02/24/21 02/24/21 Unknown History cholecalciferol (vitamin D3) 50,000 unit PO Q7D 02/24/21 02/24/21 Unknown History ciprofloxacin HCl [Cipro] 750 mg PO BID 02/24/21 02/24/21 Unknown History Allergies Allergy/AdvReac Type Severity Reaction Status Date / Time dronedarone Allergy Severe rash, Verified 02/23/21 21:57 swelling doxacurium Allergy HIVES,RASH Verified 02/23/21 21:57 sulfamethoxazole Allergy ALGY-Rash Verified 02/23/21 21:57 [From Bactrim] trimethoprim [From Bactrim] Allergy ALGY-Rash Verified 02/23/21 21:57 Current Medications Current Medications Generic Name Dose Route Start Last Admin Trade Name Freq PRN Reason Stop Dose Admin Albuterol/Ipratropium 3 ml 02/24/21 09:00 02/24/21 09:34 Ipratropium-Albuterol 3 Ml Neb INHALATION 3 ml Q6H.RESPIRATORY RUSSELL Administration Diltiazem HCl 125 mg/ Sodium 125 mls @ 0 mls/hr 02/23/21 21:30 02/24/21 00:14 Chloride IV 0 mg/hr .Q0M RUSSELL 0 mls/hr Titration Protocol Per Protocol Amiodarone HCl 900 mg/ 518 mls @ 0 mls/hr 02/23/21 23:30 02/24/21 00:07 Dextrose/ IV Miscellaneous IV 1 mg/min Supplies .Q0M RUSSELL 34.53 mls/hr Administration Protocol Per Protocol Methylprednisolone Sodium Succinate 40 mg 02/24/21 09:00 02/24/21 11:25 Methylprednisolone Sod Succ 40 Mg/Ml Inj IVP 40 mg DAILY RUSSELL Administration Pantoprazole Sodium 40 mg 02/24/21 09:00 02/24/21 08:[address] 40 Mg Tablet PO Not Given DAILY RUSSELL PFSH Acute PFSH: Medical History (Updated 02/24/21 @ 19:29 by Kayla Olivera MD) Atrial fibrillation Atrial flutter CHF (congestive heart failure) COPD (chronic obstructive pulmonary disease) Edema leg Emphysema/COPD Fibromyalgia GERD (gastroesophageal reflux disease) History of coronary angiogram Hypertension Hypotension Nonischemic cardiomyopathy Ejection fraction 25% Osteoarthritis Rheumatoid arthritis Sinus tachycardia Tobacco dependency Surgical History H/O: hysterectomy S/P tonsillectomy Family History Father Cancer Mother Cancer Sister Cancer Other CAD (coronary artery disease) Hyperlipidemia Hypertension Lung disease Denies family history of Psychiatric illness Social History Smoking and tobacco status: current every day smoker Alcohol intake: never History of recent travel: No Vitals/I&O/Wt Last Vital Signs Temp 97.7 F 02/24/21 08:00 Pulse 88 02/24/21 11:00 Resp 20 H 02/24/21 11:00 BP 136/90 02/24/21 09:30 Pulse Ox 96 02/24/21 11:00 02/23/21 02/24/21 02/24/21 22:59 06:59 14:59 Intake Total 11.583 / 11.583 Output Total 90 / 90 Balance -78.417 / -78.417 Weight last 48 hrs Weight 200 lb 7 oz Weight 200 lb 9.6 oz Weight 200 lb Physical Exam Narrative: EXAM NARRATIVE: Gen: obese woman sitting in bed in no acute distress Neck: No JVD appreciated CVS: S1, S2 regular. No murmur appreciated RS: coarse bilateral breath sounds, wheezing +, rhonchi+ Ext: no edema, no caynosis, warm extremities TITLE DEPARTMENT MANAGER: AAOx3, No FND but limited understanding of her situation Urinary Catheter Management^: Morris: Cath Placed During This Visit: yes Reason for Continuing Indwelling Catheter: Accurate Measurement of Urinary Output in Critically Ill Patients Urinary Catheter Date of Insertion: 02/24/21 Urinary Catheter Time of Insertion: 01:50 Data Other Data: Attestation for Other Data: I personally reviewed and interpreted the following: Other data: TTE (02/24/21) CONCLUSIONS 1. Dilated left ventricle. Severely decreased left ventricular systolic function. Left ventricular ejection fraction is estimated at 20 %. Severe global hypokinesis. Grade II diastolic dysfunction, moderately elevated filling pressures. 2. Normal right ventricular size and systolic function. 3. Pulmonary artery pressure estimated at 32 mm Hg. 4. Mild mitral valve regurgitation. 5. Mildly to moderately increased left atrial size. 6. No significant change when compared to previous echocardiogram dated 09/19/2019. Procedure(s): FAMILY RESOURCE MANAGEMENT PROFESSOR request for service Date of Service: 10/10/19 Conclusions No significant disease noted in the Left Main, LAD, Circumflex, or RCA coronary arteries. All harrell are hypokinetic. Severe left ventricular systolic dysfunction. Ejection fraction of 25%. Procedure(s): CV echo complete Date of Service: 09/23/19 CONCLUSIONS 1-Severely increased left ventricular cavity size. Severely decreased left ventricular systolic function. Left ventricular ejection fraction is estimated at 20 %. Global left ventricular hypokinesis. Grade IV/IV diastolic dysfunction (irreversible restrictive filling pattern), severely elevated filling pressures. 2-Moderately increased left atrial size. 3-No significant valve abnormalities. 4-There is no pericardial effusion. 5-When compared to the prior echocardiogram dated March 29, 2016 there is worsening of left ventricle systolic function from moderately depressed 41% to severely depressed 20% now A&P Assessment and plan (1) Cardiac arrest with ventricular fibrillation: VT/V fib arrest in setting of underlying NICM -this happened while on amiodarone 400 mg daily (admits to compliance with this) -recent cath with normal coronaries -unchanged LV function on echo. -transition to PO amiodarone. -She will need ICD insertion for secondary prevention -maintain potassium>4 and Magnesium >2 -I will discuss this with patient when she is more receptive. At this time, she is only interested in eating right now. Status: Acute (2) Atrial fibrillation with rapid ventricular response: Status: Acute (3) Chronic combined systolic and diastolic heart failure: fairly compensated - Status: Acute (4) Acute kidney injury: Status: Acute (5) COPD (chronic obstructive pulmonary disease): Status: Acute Additional A&P Information Hyperkalemia RA Thank you for allowing me to participate in patient's care. Please feel free to call with questions or concerns Consult Attestations Time Spent in Patient Care: Greater than 35 minutes (>than 50% of time spent in counselling and/or direct pt care on unit) . Critical Care Time: Critical Care Time (min): 40 Coding Level of Care Code Acute Complaint Adjuster for Kishan Sandhu Diagnoses Cardiac arrest with ventricular fibrillation I46.9; I49.01 Atrial fibrillation with rapid ventricular response I48.91 Chronic combined systolic and diastolic heart failure I50.42 Acute kidney injury N17.9 COPD (chronic obstructive pulmonary disease) J44.9
--- NOTE | 2021-02-24 14:56 | PC.NURSE ---
wheezing has worsened from this morning and some crackles were noted in lungs. Dr. marvin and fluids stopped per orders.
[2021-02-24] MEDS: amiodarone 200 mg Tablet 400 MG PO ×2 (15:37→18:03)
[2021-02-24] MEDS: dextrose 50% syringe 50 mL 25 ML IVP (15:37)
[2021-02-24] MEDS: insulin regular-human 5 UNIT in SYRINGE 1 EACH 10 UNIT IVP (15:37)
[2021-02-24] MEDS: sodium polystyrene sulfonate 15 gm/60 mL Btl PO (15:37)
--- NOTE | 2021-02-24 15:49 | PC.NURSE ---
Dr. Gao was in patients room discussing medications and ICD when patients family member brought in fast food and a soda. Patient was educated earlier in shift about being on a cardiac diet. After discussion with doctor patient asked multiple questions about being able to eat before the procedure.
[2021-02-24] MEDS: azithromycin 500 MG in sodium chloride 0.9% 250 ML 250 MG IV (16:45)
[2021-02-24 17:11] LABS: Blood Urea Nitrogen 16 mg/dL (8-23); Calcium 8.1 mg/dL (8.5-10.5); Carbon Dioxide 18 mmol/L (22-29); Chloride 105 mmol/L (98-107); Glomerular Filtration Rate 72.4 mL/min (90-130); Glucose 238 mg/dL (65-115); Magnesium 1.9 mg/dL (1.7-2.3); Osmolality Calculated 293 mOsm/kg (285-295); Sodium 137 mmol/L (136-145)
[2021-02-24 17:20] LABS: Anion Gap 18.7 (5-19); Potassium 4.7 mmol/L (3.5-5.1)
--- NOTE | 2021-02-24 19:00 | P.PN_ITS ---
Subjective Subjective: Interval history: Patient was seen and examined this morning, she was complaining of feeling thirsty, complaining of being hungry. Denies any other complaints. Patient said that her symptoms started after a spider bite, 2 days back, she started having shortness of breath as well as chest pain. Had one episode of nonsustained VT in the ICU. Medications: Medication Review Details: Generic Name Dose Route Start Last Admin Trade Name Freq PRN Reason Stop Dose Admin Albuterol/Ipratrop ium 3 ml 02/24/21 09:00 02/24/21 14:11 Ipratropium-Albu terol 3 Ml Neb INHALATION 3 ml Q6H.RESPIRATORY S CH Administration Amiodarone HCl 400 mg 02/24/21 15:20 02/24/21 18:03 Amiodarone 200 M g Tablet PO 400 mg BID RUSSELL Administration Enoxaparin Sodium 90 mg 02/24/21 13:00 02/24/21 14:11 Enoxaparin 100 M g/Ml Syringe 1 mg/kg (90 mg) 90 mg SUBCUT Administration Q12H RUSSELL Diltiazem HCl 125 mg/ Sodium 125 mls @ 0 mls/h r 02/23/21 21:30 02/24/21 00:14 Chloride IV 0 mg/hr .Q0M RUSSELL 0 mls/hr Titration Protocol Per Protocol Amiodarone HCl 900 mg/ 518 mls @ 0 mls/h r 02/23/21 23:30 02/24/21 00:07 Dextrose/ IV Misce llaneous IV 1 mg/min Supplies .Q0M RUSSELL 34.53 mls/hr Administration Protocol Per Protocol Azithromycin 500 m g/ Sodium 250 mls @ 250 mls /hr 02/24/21 15:00 02/24/21 16:45 Chloride IV 250 mls/hr Q24H RUSSELL Administration Protocol Pantoprazole Sodiu m 40 mg 02/24/21 09:00 02/24/21 08:[address] 40 Mg Tablet PO Not Given DAILY RUSSELL Vitals/I&O/Wt Last Vital Signs Temp 97.3 F L 02/24/21 13:00 Pulse 96 02/24/21 18:00 Resp 25 H 02/24/21 18:00 BP 101/73 02/24/21 17:30 Pulse Ox 94 02/24/21 18:00 02/24/21 02/24/21 02/24/21 06:59 14:59 22:59 Intake Total 11.583 / 11.583 500 / 500 Output Total 325 / 325 Balance -78.417 / -78.417 175 / 175 Weight last 48 hrs Weight 90.917 kg Weight 90.991 kg Weight 90.718 kg Physical Exam Const: COMMON NORMALS: patient oriented x3 HENMT: COMMON NORMALS: normocephalic and atraumatic HEAD & SCALP: normocephalic and atraumatic Resp: OTHER: Bilateral wheezing in both the lung field, bilateral coarse breath sounds Cardio: COMMON NORMALS: regular rate, regular rhythm, S1 normal heart sound present, S2 normal heart sound present, No gallops present (Cardio), No murmurs present (Cardio), No rub (Cardio) and Peripheral pulses 2+ throughout RATE: regular rate RHYTHM: regular rhythm HEART SOUNDS: S1 normal heart sound present and S2 normal heart sound present PERIPHERAL PULSES: Peripheral pulses 2+ throughout GI: COMMON NORMALS: Normal to inspection, nondistended, normoactive bowel sounds present, Soft to palpation, non-tender, No hepatosplenomegaly present and no masses AUSCULTATION: Yes normoactive bowel sounds PALPATION: Yes Soft to palpation and Yes No hepatosplenomegaly present RECTAL EXAM: deferred Extremity: COMMON NORMALS: no clubbing, cyanosis or edema and no pedal edema Neuro: COMMON NORMALS: patient oriented x3 Urinary Catheter Management^: Morris: Cath Placed During This Visit: yes Reason for Continuing Indwelling Catheter: Accurate Measurement of Urinary Output in Critically Ill Patients Urinary Catheter Date of Insertion: 02/24/21 Urinary Catheter Time of Insertion: 01:50 Data : 02/24/21 10:36 02/24/21 15:49 A&P Assessment and plan (1) Atrial fibrillation with rapid ventricular response: Status: Acute (2) Cardiac arrest with ventricular fibrillation: Status: Acute (3) Acute kidney injury: Status: Acute (4) Rheumatoid arthritis: Status: Acute (5) Tobacco dependency: Status: Chronic (6) Chronic combined systolic and diastolic heart failure: Status: Acute (7) Low blood potassium: Status: Acute Additional A&P Information # V-Fib Arrest S/p CPR/Defib on Amidarone drip On amiodarone p.o. 400 twice daily. ECHO : Dilated LV, severely decreased LVEF:20 %, severe global hypokinesia, grade 2 diastolic dysfunction, normal RV size and systolic function, PAP:32 mm hg, mild MR. No significant change when compared to previous echocardiogram dated 09/19/2019. #Appreciate cardiology input, #Atrial Fib with RVR Currently in sinus On amidarone On therapeutic anticoagulation with Lovenox # Chronic Combined nonischemic HF: Currently compensated EF 20%/Grade 4 DD Intake output charting Daily weight Continue Lasix 40 mg p.o. twice daily K:4, Mg>2 likely candidate for AICD. # CKD stage 3 kidney disease Creatinine stable Monitor BMP Renal dosing Monitor u/o #Hyperkalemia: Serum potassium 5.4: Hyperkalemia cocktail given: Repeat serum potassium:4.7 Continue to monitor BMP #COPD exacerbation: Patient has bilateral wheezing. Shortness of breath. Continue Solu-Medrol 40 mg IV Q12 H DuoNebs Azithromycin Supplemental oxygen as needed # Rheumatoid arthritis Tobacco abuse Fibromyalgia DVT ppx Lovenox Code Status Full Code Attestations Medical Necessity Statement*: Patient needs to be in hospital for management of above defined problems. Time Spent in Patient Care: Greater than 35 minutes (>than 50% of time spent in counselling and/or direct pt care on unit) . Critical Care Time: Critical Care Time (min): 40 Other Attestations: The high probability of a clinically significant, sudden or life threatening deterioration of the patient's [] system(s) required my full and direct attention, intervention and personal management. The critical care time is as shown. This time is in addition to time spent performing any reported procedures but includes the following: [x] Data and vital sign review and interpretation [x] Patient assessment, examination and intervention [x] Documentation [x] Medication orders and management Coding Level of Care Code Acute Cardiovascular Radiologic Technologist for Chg Fwd Diagnoses Atrial fibrillation with rapid ventricular response I48.91 Cardiac arrest with ventricular fibrillation I46.9; I49.01 Acute kidney injury N17.9 Rheumatoid arthritis M06.9 Tobacco dependency F17.200 Chronic combined systolic and diastolic heart failure I50.42 Low blood potassium E87.6
[2021-02-25] VITALS (51 sets, daily range): BP systolic 86–154; BP diastolic 62–114; PULSE 78–95; RESP 15–36; TEMP 36.8–36.9; O2SAT 85–98
[2021-02-25] MEDS: enoxaparin 100 mg/mL Syringe 90 MG SUBCUT (03:35)
[2021-02-25] MEDS: ipratropium-albuterol 3 mL Neb INHALATION ×3 (08:30→20:04)
[2021-02-25] MEDS: pantoprazole DR 40 mg Tablet PO (08:43)
[2021-02-25] MEDS: amiodarone 200 mg Tablet 400 MG PO ×2 (08:43→17:16)
[2021-02-25] MEDS: FUROsemide 40 mg Tablet PO ×2 (08:45→17:16)
--- NOTE | 2021-02-25 10:05 | P.PN_ITS ---
Subjective Subjective: Interval history: No complaints; no events on telemetry Medications: Reviewed: Yes Vitals/I&O/Wt Last Vital Signs Temp 98.4 F 02/25/21 00:00 Pulse 95 02/25/21 09:00 Resp 24 H 02/25/21 09:00 BP 127/81 02/25/21 09:00 Pulse Ox 93 02/25/21 09:00 02/24/21 02/25/21 02/25/21 22:59 06:59 14:59 Intake Total 988 / 1346.571 0 / 1346.571 400 / 400 Output Total 325 / 325 350 / 675 Balance 663 / 1021.571 -350 / 671.571 400 / 400 Weight last 48 hrs Weight 204 lb 14.4 oz Weight 200 lb 7 oz Weight 200 lb 9.6 oz Weight 200 lb Physical Exam Narrative: EXAM NARRATIVE: Gen: obese woman sitting in bed in no acute distress Neck: No JVD appreciated CVS: S1, S2 regular. 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, No FND but limited understanding of her situation Urinary Catheter Management^: Morris: Cath Placed During This Visit: yes Reason for Continuing Indwelling Catheter: Accurate Measurement of Urinary Output in Critically Ill Patients Urinary Catheter Date of Insertion: 02/24/21 Urinary Catheter Time of Insertion: 01:50 Data : 02/24/21 10:36 02/24/21 15:49 A&P Assessment and plan (1) Cardiac arrest with ventricular fibrillation: VT/V fib arrest in setting of underlying dilated cardiomyopathy (NICM) -this happened while on amiodarone 400 mg daily (admits to compliance with this) -recent cath with normal coronaries. -unchanged LV function on echo. -transitioned to PO amiodarone. -She will need ICD insertion for secondary prevention. unfortunately, Dr. Brown is unavailable till next month. I discussed with patient her sister and nephew about the same. I will set her up with life vest in the interim. She was advised on compliance with life vest. She is agreeable with dual chamber ICD placement. Plan to set her up with Dr. Brown [facility] after discharge. -maintain potassium>4 and Magnesium >2; f/u on labs today Status: Acute (2) Atrial fibrillation with rapid ventricular response: reamins in SR. -restart Eliquis 5 mg BID on discharge Status: Acute (3) Chronic combined systolic and diastolic heart failure: fairly compensated Status: Acute (4) Acute kidney injury: resolved; f/u BMP Status: Acute (5) COPD (chronic obstructive pulmonary disease): COPD exacerbation managed by primary team Status: Acute Additional A&P Information Hyperkalemia: resolved RA Thank you for allowing me to participate in patient's care. Please feel free to call with questions or concerns Attestations Medical Necessity Statement*: needs hopsitalization post cardiac arrest Time Spent in Patient Care: Greater than 35 minutes (>than 50% of time spent in counselling and/or direct pt care on unit) . Critical Care Time: The high probability of a clinically significant, sudden or life threatening deterioration of the patient's [cardiac] system(s) required my full and direct attention, intervention and personal management. The critical care time is as shown. This time is in addition to time spent performing any reported procedures but includes the following: [x] Data and vital sign review and interpretation [x] Patient assessment, examination and intervention [x] Documentation [x] Medication orders and management Critical Care Time (min): 45 Coding Level of Care Code Acute Licensed Vocational Nurse for Kishan Sandhu Diagnoses Cardiac arrest with ventricular fibrillation I46.9; I49.01 Atrial fibrillation with rapid ventricular response I48.91 Chronic combined systolic and diastolic heart failure I50.42 Acute kidney injury N17.9 COPD (chronic obstructive pulmonary disease) J44.9
--- NOTE | 2021-02-25 10:06 | PC.CHAP ---
Pastoral Care Encounter/Spiritual Assessment Type of Contact [] Declined literature professor visit [] Patient/Family/Request visit [] Outpatient visit [] Follow-up visit [] Physician referral [] Code/Alert [x] Routine visit [] Staff referral [] Actively dying [] Patient sleeping [] Family support [] [] Out of room [] Palliative care [] [] Receiving care in room [] Pre-surgical visit [] Trauma [] Long length of stay [x] ICU visit [x] Other: setting up in chair... 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 Interventions [x] Prayer [] Active listening [] Non-anxious presence [] Spiritual/emotional support [] Crisis/trauma care [] Spiritual counseling [] Bereavement support [] Provided bereavement packet [] Provided Bible/devotional materials [] Provided toy/stuffed animal, coloring book to patient or family member [] Provided Communion [] Anointing/Conception [] Salvation [x] Completed spiritual assessment [] Other: Impact on Illness or Injury [] Angry [] Fearful [] Anxious [] Often cries [] Exhaustion [] Unable to work [] Unable to attend yazidi [] Unable to walk/stand [] Unable to read [] Unable to drive [] Unable to eat/drink [] Unable to sleep [] Unable to be with family [] Patient intubated [] Other: Summary Time spent with patient
[2021-02-25] MEDS: metoprolol succinate ER (24 HR) 25 mg Tablet PO (11:31)
[2021-02-25] MEDS: apixaban 5 mg Tablet PO (17:16)
--- NOTE | 2021-02-25 19:41 | PM.PN ---
Subjective Subjective: Interval history: Patient was seen this morning, her family is at bedside, she had an uneventful night, no cough, no chest pain, no palpitations, she tells me that she is currently having a lot of cravings to smoke, she has been smoking for more than 50 years, declines any intervention Vitals/I&O/Wt Last Vital Signs Temp 98.4 F 02/25/21 00:00 Pulse 83 02/25/21 18:30 Resp 21 H 02/25/21 18:30 BP 118/86 02/25/21 18:30 Pulse Ox 95 02/25/21 18:30 02/25/21 02/25/21 02/25/21 06:59 14:59 22:59 Intake Total 0 / 9987.002 3558 / 2700 300 / 3000 Output Total 350 / 675 Balance -350 / 770.886 1143 / 2700 300 / 3000 Weight last 48 hrs Weight 92.941 kg Weight 90.917 kg Weight 90.991 kg Weight 90.718 kg Physical Exam Const: COMMON NORMALS: no acute distress and patient oriented x3 Resp: COMMON NORMALS: normal respiratory effort, No retractions, No use of accessory muscles and clear to auscultation bilaterally AUSCULTATION: clear to auscultation bilaterally Cardio: COMMON NORMALS: regular rate, regular rhythm, S1 normal heart sound present and S2 normal heart sound present RATE: regular rate RHYTHM: regular rhythm HEART SOUNDS: S1 normal heart sound present and S2 normal heart sound present GI: COMMON NORMALS: Normal to inspection, nondistended, normoactive bowel sounds present, Soft to palpation and non-tender PALPATION: Yes Soft to palpation Extremity: COMMON NORMALS: no pedal edema Neuro: COMMON NORMALS: patient oriented x3 Psych: COMMON NORMALS: mental status grossly normal Urinary Catheter Management^: Morris: Cath Placed During This Visit: yes Reason for Continuing Indwelling Catheter: Accurate Measurement of Urinary Output in Critically Ill Patients Urinary Catheter Date of Insertion: 02/24/21 Urinary Catheter Time of Insertion: 01:50 Data : 02/24/21 10:36 02/24/21 15:49 A&P Assessment and plan (1) Atrial fibrillation with rapid ventricular response: Status: Acute (2) Cardiac arrest with ventricular fibrillation: Status: Acute (3) Acute kidney injury: Status: Acute (4) Rheumatoid arthritis: Status: Acute (5) Tobacco dependency: Status: Chronic (6) Chronic combined systolic and diastolic heart failure: Status: Acute (7) Low blood potassium: Status: Acute Additional A&P Information # V-Fib Arrest S/p CPR/Defib On amiodarone p.o. 400 twice daily. ECHO : Dilated LV, severely decreased LVEF:20 %, severe global hypokinesia, grade 2 diastolic dysfunction, normal RV size and systolic function, PAP:32 mm hg, mild MR. No significant change when compared to previous echocardiogram dated 09/19/2019. #Appreciate cardiology input, plan on LifeVest #Atrial Fib with RVR Currently in sinus On [place]arone On therapeutic anticoagulation with Lovenox, switch to Eliquis on discharge # Chronic Combined nonischemic HF: Currently compensated EF 20%/Grade 4 DD Intake output charting Daily weight Continue Lasix 40 mg p.o. twice daily K:4, Mg>2 likely candidate for AICD. # CKD stage 3 kidney disease Creatinine stable Monitor BMP Renal dosing Monitor u/o #Hyperkalemia: We will continue to monitor Hyperkalemia cocktail given: Repeat serum potassium:4.7 Continue to monitor BMP #COPD exacerbation: Patient has bilateral wheezing. Shortness of breath. Continue Solu-Medrol 40 mg IV Q12 H DuoNebs Azithromycin has been discontinued Supplemental oxygen as needed # Rheumatoid arthritis Tobacco abuse Fibromyalgia DVT ppx Lovenox Code Status Full Code Attestations Medical Necessity Statement*: Patient requires hospitalization for V. 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
[2021-02-26] VITALS (30 sets, daily range): BP systolic 111–188; BP diastolic 64–123; PULSE 76–91; RESP 12–41; TEMP 36.7–36.9; O2SAT 92–96
[2021-02-26] MEDS: ipratropium-albuterol 3 mL Neb INHALATION ×2 (03:01→08:07)
[2021-02-26 04:45] LABS: Basophils % 0.1 %; Hematocrit 41.9 % (37.0-47.0); Hemoglobin 13.5 g/dL (11.5-15.3); Lymphocytes # 0.9 10^3/uL (0.8-4.8); Lymphocytes % 9.6 %; Mean Corpuscular HGB Conc 32.2 g/dL (30.0-36.0); Mean Corpuscular Hemoglobin 29.9 pg (28.0-34.0); Mean Corpuscular Volume 92.9 fl (81-99); Monocytes # 0.3 10^3/uL (0.2-0.9); Monocytes % 2.9 %; Neutrophils # 8.05 10^3/uL (1.8-7.7); Neutrophils % 86.9 %; Nucleated Red Blood Cells % 0 %; Platelet Count 189 10^3/cmm (130-400); Red Blood Count 4.51 10^6/uL (4.1-5.3); White Blood Count 9.3 10^3/uL (4.0-10.0)
[2021-02-26 05:19] LABS: Blood Urea Nitrogen 18 mg/dL (8-23); Calcium 8.2 mg/dL (8.5-10.5); Carbon Dioxide 23 mmol/L (22-29); Chloride 102 mmol/L (98-107); Glomerular Filtration Rate 72.4 mL/min (90-130); Glucose 173 mg/dL (65-115); Magnesium 1.9 mg/dL (1.7-2.3); Osmolality Calculated 296 mOsm/kg (285-295); Sodium 140 mmol/L (136-145)
[2021-02-26 06:24] LABS: Anion Gap 19.1 (5-19); Potassium 4.1 mmol/L (3.5-5.1)
[2021-02-26] MEDS: FUROsemide 40 mg Tablet PO (08:23)
[2021-02-26] MEDS: apixaban 5 mg Tablet PO (08:23)
[2021-02-26] MEDS: pantoprazole DR 40 mg Tablet PO (08:23)
[2021-02-26] MEDS: metoprolol succinate ER (24 HR) 25 mg Tablet PO (08:23)
[2021-02-26] MEDS: amiodarone 200 mg Tablet 400 MG PO (08:53)
[2021-02-26] MEDS: losartan 50 mg Tablet 25 MG PO (08:53)
--- NOTE | 2021-02-26 10:07 | P.PN_ITS ---
Subjective Subjective: Interval history: Cardiology coverage This patient admitted to hospital with complaints of atrial fibrillation with rapid ventricular rate, V. fib arrest in the emergency room, severe LV dysfunction and heart failure and multiple other medical medical problems. Her heart failure is appropriately treated at this time. She has not had a recurrence of ventricular fibrillation. She is on long-term oral anticoagulation. Medications: Reviewed: Yes Medication Review Details: Current Medications Acetaminophen (Acetaminophen 325 Mg Tablet) 650 mg PO Q6H PRN PRN Reason: MILD PAIN Albuterol/Ipratropium (Ipratropium-Albuterol 3 Ml Neb) 3 ml INHALATION Q6H.RESPIRATORY [facility] Last Admin: 02/26/21 08:07 Dose: 3 ml Documented by: Amiodarone HCl (Amiodarone 200 Mg Tablet) 400 mg PO BID [facility] Last Admin: 02/26/21 08:53 Dose: 400 mg Documented by: Apixaban (Apixaban 5 Mg Tablet) 5 mg PO BID [facility] Last Admin: 02/26/21 08:23 Dose: 5 mg Documented by: Furosemide (Furosemide 40 Mg Tablet) 40 mg PO BID@,16 [facility] Last Admin: 02/26/21 08:23 Dose: 40 mg Documented by: Losartan Potassium (Losartan 50 Mg Tablet) 25 mg PO DAILY [facility] Last Admin: 02/26/21 08:53 Dose: 25 mg Documented by: Methylprednisolone Sodium Succinate (Methylprednisolone Sod Succ 40 Mg/Ml Inj) 40 mg IVP Q12H [facility] Last Admin: 02/25/21 22:42 Dose: 40 mg Documented by: Metoprolol Succinate (Metoprolol Succinate Er (24 Hr) 25 Mg Tablet) 25 mg PO DAILY [facility] Last Admin: 02/26/21 08:23 Dose: 25 mg Documented by: Ondansetron HCl (Ondansetron 2 Mg/Ml Sdv 2 Ml) 4 mg IVP Q6H PRN PRN Reason: NAUSEA AND VOMITING Pantoprazole Sodium (Pantoprazole Dr 40 Mg Tablet) 40 mg PO DAILY [facility] Last Admin: 02/26/21 08:23 Dose: 40 mg Documented by: Vitals/I&O/Wt Last Vital Signs Temp 98.3 F 02/26/21 00:00 Pulse 88 02/26/21 08:07 Resp 16 02/26/21 08:07 BP 136/117 02/26/21 08:53 Pulse Ox 96 02/26/21 08:07 02/25/21 02/26/21 02/26/21 22:59 06:59 14:59 Intake Total 300 / 3000 238 / 3238 Output Total 350 / 350 500 / 850 Balance -50 / 2650 -262 / 2388 Weight last 48 hrs Weight 206 lb 1.6 oz Weight 204 lb 14.4 oz Physical Exam Narrative: EXAM NARRATIVE: GENERAL: The patient is alert and oriented times three. Not in any acute distress. HEENT: No significant pallor, icterus or lymphadenopathy.Oral cavity: There are no mucous membrane lesions. NECK: Trachea appears to be central. No masses noted. No JVD or thyromegaly appreciated. RESPIRATORY: Chest is symmetrical. No intercostals muscle retraction or any accessory muscle activation. There is no chest wall tenderness. Breath sounds are heard bilaterally. No rales or rhonchi heard. No evidence of any consolidation. BREASTS: Deferred. HEART: The heart sounds are normal. No S3 or S4. Short systolic murmur in the left sternal border. No diastolic murmurs. No pericardial rub ABDOMEN: No vessel pulsations or distention. No tenderness. No organomegaly appreciated. Bowel sounds are normally heard. : Deferred. RECTAL: Deferred. LYMPHATIC: No lymphadenopathy noted in the neck or groin. EXTREMITIES: Trace to 1+ edema. No cyanosis. MUSCULOSKELETAL: No acute joint deformities or swelling SKIN: There are no significant rashes or ecchymosis NEUROPSYCHIATRIC: The patient is alert and oriented x3. Appears to be in a good mood. No tremors or rigidity noted. Urinary Catheter Management^: Morris: Cath Placed During This Visit: yes Reason for Continuing Indwelling Catheter: Accurate Measurement of Urinary Output in Critically Ill Patients Urinary Catheter Date of Insertion: 02/24/21 Urinary Catheter Time of Insertion: 01:50 Data : 02/26/21 03:45 02/26/21 03:45 Other Labs: Laboratory Last Values WBC 9.3 10^3/uL (4.0-10.0) 02/26/21 03:45 Corrected WBC Cancelled 02/25/21 03:11 RBC 4.51 10^6/uL (4.1-5.3) 02/26/21 03:45 Hgb 13.5 g/dL (11.5-15.3) 02/26/21 03:45 Hct 41.9 % (37.0-47.0) 02/26/21 03:45 MCV 92.9 fl (81-99) 02/26/21 03:45 MCH 29.9 pg (28.0-34.0) 02/26/21 03:45 MCHC 32.2 g/dL (30.0-36.0) 02/26/21 03:45 RDW 13.0 % (12.1-15.1) 02/26/21 03:45 Plt Count 189 10^3/cmm (130-400) 02/26/21 03:45 MPV 12.0 fL (7.4-10.4) H 02/26/21 03:45 Gran % Cancelled 02/25/21 03:11 Neut % (Auto) 86.9 % 02/26/21 03:45 Lymph % (Auto) 9.6 % 02/26/21 03:45 [place] % (Auto) 2.9 % 02/26/21 03:45 Eos % (Auto) 0.0 % 02/26/21 03:45 Baso % (Auto) 0.1 % 02/26/21 03:45 Neut # (Auto) 8.05 10^3/uL (1.8-7.7) H 02/26/21 03:45 Lymph # (Auto) 0.9 10^3/uL (0.8-4.8) 02/26/21 03:45 [place] # (Auto) 0.3 10^3/uL (0.2-0.9) 02/26/21 03:45 Eos # (Auto) 0.0 10^3/uL (0.0-0.8) 02/26/21 03:45 Baso # (Auto) 0.0 10^3/uL (0.0-0.1) 02/26/21 03:45 Absolute Gran (auto) Cancelled 02/25/21 03:11 Nucleated RBC % (auto) 0 % 02/26/21 03:45 Nucleated RBCs # 0.0 /100WBC 02/26/21 03:45 Specimen Type Arterial 02/23/21 23:50 Sample Site R.radial 02/23/21 23:50 ABG pH 7.39 (7.35-7.45) 02/23/21 23:50 ABG pCO2 42.5 mmHg (35-45) 02/23/21 23:50 ABG pO2 66.8 mmHg (80.0-100.0) L 02/23/21 23:50 ABG HCO3 25.9 mmol/L (22-26) 02/23/21 23:50 ABG O2 Saturation 93.1 02/23/21 23:50 ABG Base Excess 1.0 mmol/L (-2.0-2.0) 02/23/21 23:50 David Test P 02/23/21 23:50 A-a O2 Gradient Not Reportable 02/23/21 23:50 Hematocrit 42.8 % (37-47) 02/23/21 23:50 Hgb O2 Saturation 90.3 % (95-100) L 02/23/21 23:50 Carboxyhemoglobin 2.2 %THgb (0.4-20.1) 02/23/21 23:50 Methemoglobin 1.0 % (0.4-1.5) 02/23/21 23:50 Total Hemoglobin 13.9 g/dL (12-16) 02/23/21 23:50 Sodium 144.0 mmol/L (131-143) H 02/23/21 23:50 Potassium 3.4 mmol/L (3.5-5.0) L 02/23/21 23:50 Glucose 128.0 mg/dL (70-115) H 02/23/21 23:50 Ionized Calcium 1.2 mmol/L (1.1-1.4) 02/23/21 23:50 O2 Delivery Device Nc 02/23/21 23:50 Specimen Drawn By [place] 02/23/21 23:50 Costume Seamstress ID [place] 02/23/21 23:50 Sodium 140 mmol/L (136-145) 02/26/21 03:45 Potassium 4.1 mmol/L (3.5-5.1) 02/26/21 03:45 Chloride 102 mmol/L (98-107) 02/26/21 03:45 Carbon Dioxide 23 mmol/L (22-29) 02/26/21 03:45 Anion Gap 19.1 (5-19) H 02/26/21 03:45 BUN 18 mg/dL (8-23) 02/26/21 03:45 Creatinine 0.8 mg/dL (0.5-0.9) 02/26/21 03:45 GFR Calculation 72.4 mL/min (90-130) L 02/26/21 03:45 Glucose 173 mg/dL (65-115) H 02/26/21 03:45 POC Glucose 131 mg/dL (70-110) H 02/24/21 00:53 Calculated Osmolality 296 mOsm/kg (285-295) H 02/26/21 03:45 Lactate 2.1 mmol/L (0.5-2.2) 02/23/21 21:44 Calcium 8.2 mg/dL (8.5-10.5) L 02/26/21 03:45 Magnesium 1.9 mg/dL (1.7-2.3) 02/26/21 03:45 Total Bilirubin 0.2 mg/dL (0.15-1.2) 02/23/21 21:44 AST 18 U/L (0-32) 02/23/21 21:44 ALT 11 U/L (0-33) 02/23/21 21:44 Alkaline Phosphatase 135 IU/L (35-105) H 02/23/21 21:44 Troponin T Baseline 17 ng/L (0-10) H 02/23/21 21:44 Troponin T 120 Minute 14.34 ng/L (0-10) H 02/24/21 00:17 Delta Troponin T -2.66 ABS# (0-10) L 02/24/21 00:17 Troponin T Hi Sens 6Hr 16.59 ng/L (0-10) H 02/24/21 04:44 Troponin T Hi Sens 6Hr Delta -0.41 ng/L (0-12) L 02/24/21 04:44 NT-Pro-B Natriuret Pep 3862 pg/mL (0-125) H 02/23/21 21:44 Total Protein 7.1 g/dL (6.6-8.7) 02/23/21 21:44 Albumin 3.9 g/dL (3.5-5.2) 02/23/21 21:44 Globulin 3.2 g/dL (1.3-4.6) 02/23/21 21:44 TSH 2.89 uIU/mL (0.27-4.20) 02/23/21 21:44 Urine Color Yellow (Yellow) 02/24/21 01:50 Urine Appearance Sl cloudy (CLEAR) A 02/24/21 01:50 Urine pH 5 (5-7) 02/24/21 01:50 Ur Specific [place] 1.030 (1.005-1.030) 02/24/21 01:50 Urine Protein 3+ (Negative) H 02/24/21 01:50 Urine Glucose (UA) Norm (Normal) 02/24/21 01:50 Urine Ketones Negative (Negative) 02/24/21 01:50 Urine Blood 2+ (Negative) H 02/24/21 01:50 Urine Nitrate Negative (Negative) 02/24/21 01:50 Urine Bilirubin Neg (Negative) 02/24/21 01:50 Urine Urobilinogen Norm mg/dL (Negative) 02/24/21 01:50 Ur Leukocyte Esterase Negative (Negative) 02/24/21 01:50 Urine RBC 10-15 /hpf (0-2) H 02/24/21 01:50 Urine WBC 5-10 /hpf (0-5) H 02/24/21 01:50 Ur Squamous Epith Cells 55-80 /hpf (0-5) H 02/24/21 01:50 Amorphous Sediment Not Reportable 02/24/21 01:50 Urine Bacteria 3+ /hpf (NONE) H 02/24/21 01:50 A&P Assessment and plan (1) Atrial fibrillation with controlled ventricular response: Patient may continue on the current medication and long-term oral anticoagulation. Status: Acute (2) Congestive heart failure with LV diastolic dysfunction, NYHA class 2: Heart failure seems to be appropriate treated. Blood pressure still elevated. I may start her on losartan 25 mg p.o. daily. If she tolerates this medication well, we may start her on Entresto as an outpatient. Status: Acute (3) Acute kidney injury: The kidney function need to be closely monitored. Status: Acute (4) Cardiac arrest with ventricular fibrillation: Has not had recurrence of the ventricular fibrillation. May continue the amiodarone. Patient is going to have an external defibrillator till she get the internal 1 Status: Acute (5) COPD (chronic obstructive pulmonary disease): May continue on the current treatment measures Status: Acute Additional A&P Information If the patient continues remain stable, may be discharged home on the current medications. She need to wait till the LifeVest is put on. Continue the medications as it is. Appointment the [facility] to be seen by the nurse practitioner next week Appointment with Dr. Olivera in 3 weeks Attestations Medical Necessity Statement*: Possible discharge home today Coding Level of Care Code Acute [facility] for Kishan Fwd History Detailed Exam Detailed Medical Decision Making Moderate Complexity Diagnoses Atrial fibrillation with controlled ventricular response I48.91 Congestive heart failure with LV diastolic dysfunction, NYHA class 2 I50.30 Acute kidney injury N17.9 Cardiac arrest with ventricular fibrillation I46.9; I49.01 COPD (chronic obstructive pulmonary disease) J44.9
--- NOTE | 2021-02-26 10:07 | PC.SOCIAL ---
IMM Updated Updated pt on IMM. No questions voiced. Provided pt a copy. Initialed, dated, & timed copy in chart.
--- NOTE | 2021-02-26 13:48 | PM.DCS ---
Discharge Providers Date of Admission: 02/23/21 23:35 Date of Discharge: February 26, 2021 Attending Provider at Admission: Oswaldo Carcamo Attending Provider at Discharge: Felipe Martin MD Primary Care Provider: Saman Florez NP Diagnoses at Discharge Discharge Diagnosis (1) Atrial fibrillation with controlled ventricular response: Status: Acute (2) Congestive heart failure with LV diastolic dysfunction, NYHA class 2: Status: Acute (3) Acute kidney injury: Status: Acute (4) Cardiac arrest with ventricular fibrillation: Status: Acute (5) COPD (chronic obstructive pulmonary disease): Status: Acute Reason for Visit Reason for Visit: sob, elvated HR Hospital Course Hospital Course 61-year-old female with a past medical history significant for tobacco abuse, COVID-19 infection, rheumatoid arthritis,( Enbrel, hydrochloric when, prednisone), chronic obstructive pulmonary disease, chronic combined heart failure with EF of 20% / grade 4 diastolic dysfunction noted to be nonischemic and paroxysmal atrial fibrillation who presented to the hospital with shortness of breath Patient presents [facility], was found to have A. fib with RVR, was given 20 mg IV Cardizem push started with a Cardizem drip, she became unresponsive, noted to be in V. fib arrest, CPR initiated, received shock x1, return of spontaneous circulation shortly after, did not require intubation, maintained her airway, normal spontaneous rhythm thereafter, placed on amiodarone drip, was managed in the ICU. # V-Fib Arrest S/p CPR/Defib Cardiology consulted Initially managed with amiodarone drip, transition to p.o. amiodarone On amiodarone p.o. 400 twice daily, follow up with cardiology outpatient ECHO : Dilated LV, severely decreased LVEF:20 %, severe global hypokinesia, grade 2 diastolic dysfunction, normal RV size and systolic function, PAP:32 mm hg, mild MR. No significant change when compared to previous echocardiogram dated 09/19/2019. Fitted for LifeVest, discharged with compliance with LifeVest #Atrial Fib with RVR Currently in sinus On amidarone On therapeutic anticoagulation with Lovenox, switch to Eliquis on discharge, discharged on Eliquis 5 mg twice daily # Chronic Combined nonischemic HF: Currently compensated EF 20%/Grade 4 DD Managed with diuretic therapy as inpatient, clinical improved, discharged on home Lasix 40 mg twice daily # CKD stage 3 kidney disease Creatinine stable Monitor BMP Renal dosing Monitor u/o #Hyperkalemia: Resolved #COPD exacerbation: Patient has bilateral wheezing. Shortness of breath. Continue Solu-Medrol 40 mg IV Q12 H, discharged on prednisone burst Discharge home 3 L, advised to quit smoking # Rheumatoid arthritis , Follow-up with rheumatology Physical Exam Const: COMMON NORMALS: no acute distress and patient oriented x3 Resp: COMMON NORMALS: normal respiratory effort, No retractions, No use of accessory muscles and clear to auscultation bilaterally AUSCULTATION: clear to auscultation bilaterally Cardio: COMMON NORMALS: regular rate, regular rhythm, S1 normal heart sound present and S2 normal heart sound present RATE: regular rate RHYTHM: regular rhythm HEART SOUNDS: S1 normal heart sound present and S2 normal heart sound present GI: COMMON NORMALS: Normal to inspection, nondistended, normoactive bowel sounds present, Soft to palpation and non-tender PALPATION: Yes Soft to palpation Extremity: COMMON NORMALS: no pedal edema Neuro: COMMON NORMALS: patient oriented x3 Psych: COMMON NORMALS: mental status grossly normal Urinary Catheter Management^: Morris: Cath Placed During This Visit: yes Reason for Continuing Indwelling Catheter: Accurate Measurement of Urinary Output in Critically Ill Patients Urinary Catheter Date of Insertion: 02/24/21 Urinary Catheter Time of Insertion: 01:50 Discharge Data Data Completed and Pending: Completed Studies During Hospitalization Category Date Time Status XR chest 1V dominique ble [id number] Urgent Exams 02/23/21 21:28 Completed XR chest 1V dominique ble [id number] Urgent Exams 02/23/21 23:37 Completed CV. echo complete * [id number] Routine Ultrasound 02/24/21 01:06 Completed Pending at discharge Category Date Time Status Basic Metabolic P kenya AM LABS Lab 02/27/21 04:00 Ordered Complete Blood Co unt w/Auto AM LABS Lab 02/27/21 04:00 Ordered Magnesium AM LABS Lab 02/27/21 04:00 Ordered Labs from last 24 hours 02/26/21 02/26/21 03:45 03:45 WBC 9.3 RBC 4.51 Hgb 13.5 Hct 41.9 MCV 92.9 MCH 29.9 MCHC 32.2 RDW 13.0 Plt Count 189 MPV 12.0 H Neut % (Auto) 86.9 Lymph % (Auto) 9.6 [place] % (Auto) 2.9 Eos % (Auto) 0.0 Baso % (Auto) 0.1 Neut # (Auto) 8.05 H Lymph # (Auto) 0.9 [place] # (Auto) 0.3 Eos # (Auto) 0.0 Baso # (Auto) 0.0 Nucleated RBC % (a uto) 0 Nucleated RBCs # 0.0 Sodium 140 Potassium 4.1 Chloride 102 Carbon Dioxide 23 Anion Gap 19.1 H BUN 18 Creatinine 0.8 GFR Calculation 72.4 L Glucose 173 H Calculated Osmolal ity 296 H Calcium 8.2 L Magnesium 1.9 Vitals: Last Vital Signs Temp 98.4 F 02/26/21 13:44 Pulse 85 02/26/21 13:44 Resp 12 02/26/21 13:44 BP 125/69 02/26/21 13:44 Pulse Ox 95 02/26/21 13:44 Discharge Plan Discharge Patient Disposition: Home Condition: Stable Prescriptions: New Eliquis 5 mg Tablet 5 mg PO BID 30 Days Qty: 60 RF: 0 losartan 50 mg Tablet 25 mg PO DAILY 30 Days Qty: 30 RF: 0 metoprolol succinate 25 mg Tablet Extended Release 24 Hr 25 mg PO DAILY 30 Days Qty: 30 RF: 0 prednisone 20 mg tablet 20 mg PO BID 5 Days Qty: 10 RF: 0 Continued furosemide 40 mg tablet 40 mg PO BID Qty: 180 RF: 3 melatonin 3 mg capsule 6 mg PO BEDTIME PRN (Reason: Sleep) RF: 0 vitamin B complex [B Complex-Vitamin B12] Tablet 1 tab PO DAILY Qty: 30 RF: 2 magnesium oxide 200 mg magnesium tablet 200 mg PO DAILY Qty: 30 RF: 0 ferrous sulfate [Feosol] 325 mg (65 mg iron) tablet 325 mg PO DAILY Qty: 21 RF: 0 zinc sulfate [Orazinc] 50 mg zinc (220 mg) capsule 50 mg PO DAILY Qty: 30 RF: 0 omeprazole 40 mg capsule,delayed release(DR/EC) 40 mg PO DAILY 30 Days Qty: 30 RF: 2 potassium chloride 20 mEq tablet extended release 30 meq PO BID Qty: 270 RF: 3 folic acid 1 mg tablet 1 mg PO DAILY Qty: 90 RF: 0 metolazone 2.5 mg tablet 2.5 mg PO DAILY PRN (Reason: weight gain) Qty: 30 RF: 0 Enbrel 50 mg/mL (1 mL) syringe 50 mg SUBCUT .qweek Qty: 4 RF: 5 hydroxychloroquine 200 mg tablet 200 mg PO BID Qty: 60 RF: 2 prednisone 5 mg tablet 5 mg PO DAILY PRN (Reason: flares) Qty: 30 RF: 1 diclofenac sodium 1 % gel 4 g TOPICAL QID PRN (Reason: Pain) RF: 0 albuterol sulfate 90 mcg/actuation Hfa Aerosol Inhaler 2 puff INHALATION Q6H PRN (Reason: shortness of breath) RF: 0 gabapentin 400 mg capsule 400 mg PO TID PRN (Reason: unknown) RF: 0 albuterol sulfate 2.5 mg /3 mL (0.083 %) solution for nebulization 2.5 mg inhalation Q6H PRN (Reason: unknown) RF: 0 aspirin 81 mg Tablet,Chewable 81 mg PO DAILY RF: 0 cholecalciferol (vitamin D3) 1,250 mcg (50,000 unit) capsule 50,000 unit PO Q7D RF: 0 Changed amiodarone 400 mg Tablet 400 mg PO BIDWM Qty: 0 RF: 0 Discontinued ciprofloxacin HCl [Cipro] 750 mg Tablet 750 mg PO BID RF: 0 Discharge Orders: Discharge Order (Routine); Ordered 02/26/21 Ordered By: Felipe Martin Referrals: Dangelo Florez MD [Physician] - 4-7 days Saman Florez NP [Primary Care Provider] - Discharge Diet: Cardiac Discharge Activity: Resume usual activity Patient Instructions: Atrial Fibrillation, Metoprolol (By mouth), Prednisone (By mouth), Losartan (By mouth), Apixaban (By mouth), Opioid Safety Activity Restrictions/Additional Instructions: -Please wear LifeVest all the time -LifeVest is extremely important for abnormal cardiac rhythms, noncompliance with LifeVest is associate with high risk of morbidity and mortality -Follow-up with cardiology in 1 week -We have discharged on a blood thinner, Eliquis 5 mg twice daily, if you have bloody or black stools please go to the emergency room -Follow-up with primary care provider in 1 week for recheck CBC and CMP Discharge Attestations Time Spent in Discharge Care*: less than 30 min Quality Metrics Clinical Quality Measures During this hospital stay, did patient experience: None Coding Level of Care Code Acute Chg FW DC note Diagnoses Atrial fibrillation with controlled ventricular response I48.91 Congestive heart failure with LV diastolic dysfunction, NYHA class 2 I50.30 Acute kidney injury N17.9 Cardiac arrest with ventricular fibrillation I46.9; I49.01 COPD (chronic obstructive pulmonary disease) J44.9
--- NOTE | 2021-02-26 14:40 | PC.NURSE ---
Discharge Note Patient discharged home via wheelchair accompanied by daughter. Discharge instructions reviewed with patient and/or disability representative. Mobile pharmacy medications and/or prescriptions provided. Belongings/home medications returned. Patient verbalized understanding for needing to make own appointment with Saman Florez.
== END 2021-02-26 14:13 | disposition home or self-care (01) | DRG 309 ==
LOC: ER 23:32 → ICU 23:57
PROVIDERS: Internal Medicine; Internal Medicine Cardiovascular Disease; Admitting Provider Hospitalist; Emergency Provider Emergency Medicine; PCP Nurse Practitioner Family; Visit Provider Family Medicine
DX: I48.0 Paroxysmal atrial fibrillation (principal); I50.42 Chronic combined systolic (congestive) and diastolic (congestive) heart failure; N17.9 Acute kidney failure, unspecified; I13.0 Hypertensive heart and chronic kidney disease with heart failure and stage 1 through stage 4 chronic kidney disease, or unspecified chronic kidney disease; N18.30 Chronic kidney disease, stage 3 unspecified; I46.2 Cardiac arrest due to underlying cardiac condition; I49.01 Ventricular fibrillation; J43.9 Emphysema, unspecified; E87.5 Hyperkalemia; M06.9 Rheumatoid arthritis, unspecified; M79.7 Fibromyalgia; F17.200 Nicotine dependence, unspecified, uncomplicated; K21.9 Gastro-esophageal reflux disease without esophagitis; Z79.82 Long term (current) use of aspirin; Z86.16 Personal history of COVID-19
CPT/HCPCS: 36415; 36416; 36600; 51702; 71045; 80048; 80051; 80053; 81001; 82330; 82803; 82805; 82962; 83605; 83735; 83880; 84443; 84484; 85025; 85049; 93005; 93306; 94640; 96365; 96367; 96372; 96375; 96376; 99291; 99292; J0282; J0456; J1650; J1815; J2920; J3490; J7030; J7040; J7050; J7060

== ENCOUNTER 2021-02-27 14:36 | Outpatient (CLI) | payer MEDICARE, MEDICAID, SELFPAY ==
--- NOTE | 2021-02-27 17:26 | XRR_ITS ---
NOTE: Report was unsigned for reason: Order was edited. Original Signature date and time was: 02/27/2021 [id number] PROCEDURE INFORMATION: Exam: XR Ribs Exam date and time: 02/27/2021 5:26 PM Age: 61 years old Clinical indication: Chest wall pain; Left; Additional info: Chest wall pain lt, received chest compressions recently TECHNIQUE: Imaging protocol: XR of the ribs. Views: 3 views. Bilateral ribs. COMPARISON: CR (CHEST, ) 02/23/2021 11:48 PM FINDINGS: Bones/joints: Normal. Soft tissues: Normal. MTDD
== END 2021-02-27 14:37 | disposition home or self-care (01) ==
LOC: RAD 03-06 15:21
PROVIDERS: PCP Nurse Practitioner Family; Visit Provider Family Medicine
DX: R07.9 Chest pain, unspecified (principal)
CPT/HCPCS: 71110

== ENCOUNTER 2021-05-08 07:14 | Outpatient (CLI) | payer MEDICARE, MEDICAID, SELFPAY ==
--- NOTE | 2021-05-08 07:34 | MM_ITS ---
WS: [id number] BILATERAL SCREENING 3D TOMOSYNTHESIS DIGITAL MAMMOGRAM WITH CAD HISTORY: SCREENING COMPARISON: 11/12/2018 Bilateral CC and MLO views submitted. Computer aided detection analyzed. Breast composition: There are scattered areas of fibroglandular density. No suspicious masses, microc alcifications or architectural distortion. Bilateral nodules within each breast are stable. There are additional calcifications scattered throughout each breast. No clustered calcification for which bio psy. MM/[place] [id number] IMPRESSION: BI-RADS: 2-Benign FOLLOW UP: 1 Year Follow-up
== END 2021-05-08 07:15 | disposition home or self-care (01) ==
LOC: RADSHAW 07:18
PROVIDERS: PCP Nurse Practitioner Family; Visit Provider Thoracic Surgery (Cardiothoracic Vascular Surgery)
DX: Z12.31 Encounter for screening mammogram for malignant neoplasm of breast (principal)
CPT/HCPCS: 77063; 77067

== ENCOUNTER → 2021-05-21 13:30 | Outpatient (BNVA) | payer MEDICARE, MEDICAID, SELFPAY | PROVIDERS: PCP Nurse Practitioner Family; Visit Provider Internal Medicine Critical Care Medicine | DX: J44.9 Chronic obstructive pulmonary disease, unspecified (principal); F17.210 Nicotine dependence, cigarettes, uncomplicated; J96.11 Chronic respiratory failure with hypoxia; I42.8 Other cardiomyopathies; G47.33 Obstructive sleep apnea (adult) (pediatric) | CPT/HCPCS: 99204 ==

== ENCOUNTER → 2021-05-24 11:02 | Outpatient (BNVA) | payer MEDICARE, MEDICAID, SELFPAY | PROVIDERS: PCP Nurse Practitioner Family; Visit Provider Thoracic Surgery (Cardiothoracic Vascular Surgery) | DX: I42.8 Other cardiomyopathies (principal); F17.210 Nicotine dependence, cigarettes, uncomplicated | CPT/HCPCS: 99213 ==

== ENCOUNTER → 2021-06-19 09:31 | Day surgery (SDC) | payer MEDICARE, MEDICAID, SELFPAY | PROVIDERS: PCP Nurse Practitioner Family; Visit Provider Thoracic Surgery (Cardiothoracic Vascular Surgery) | DX: Z01.818 Encounter for other preprocedural examination (principal) | CPT/HCPCS: 80048; 81001; 85025; 87077; 87086; 87186; 93005 ==

== ENCOUNTER 2021-06-25 15:28 | Observation (INO) | payer MEDICARE, MEDICAID, SELFPAY ==
[2021-06-19 09:18] VITALS: BMI 33.9
--- NOTE | 2021-06-19 09:31 | ECG_ITS ---
[facility] Test Date: 2021-06-19 Pat Name: Shana Roy Department: Room: Gender: Female [employer] Worker: : 1960 Requested By: Geno Sharp Order Number: [id number] Patty MD: Ayan Angulo M.D. Measurements Intervals [place] Rate: 87 P: 22 ID: [id number] QRS: 58 QRSD: 112 T: 121 QT: 361 QTc: 436 Interpretive Statements SINUS RHYTHM MODERATE INTRAVENTRICULAR CONDUCTION DELAY [110+ ms QRS DURATION] MODERATE T-WAVE ABNORMALITY, CONSIDER LATERAL ISCHEMIA [-0.1+ mV T-WAVE IN I/aVL/V5/V6] Compared to ECG 02/24/2021 04:15:24 No significant changes Electronically Signed On 06-19-2021 22:28:09 CDT by Ayan Angulo M.D. [id number]
[2021-06-19 09:50] LABS: Basophils % 0.5 %; Eosinophils # 0.2 10^3/uL (0.0-0.8); Eosinophils % 3.3 %; Hematocrit 41.5 % (37.0-47.0); Hemoglobin 13.4 g/dL (11.5-15.3); Lymphocytes # 1.8 10^3/uL (0.8-4.8); Mean Corpuscular HGB Conc 32.3 g/dL (30.0-36.0); Mean Platelet Volume 10.7 fL (7.4-10.4); Monocytes # 0.7 10^3/uL (0.2-0.9); Monocytes % 10.3 %; Neutrophils # 3.58 10^3/uL (1.8-7.7); Neutrophils % 56.6 %; Nucleated Red Blood Cells % 0 %; Platelet Count 205 10^3/cmm (130-400); Red Blood Count 4.46 10^6/uL (4.1-5.3); Red Cell Distribution Width 12.7 % (12.1-15.1); White Blood Count 6.3 10^3/uL (4.0-10.0)
[2021-06-19 10:04] LABS: Anion Gap 11.4 (5-19); Blood Urea Nitrogen 12 mg/dL (8-23); Calcium 9.5 mg/dL (8.5-10.5); Carbon Dioxide 28 mmol/L (22-29); Chloride 101 mmol/L (98-107); Glomerular Filtration Rate 72.4 mL/min (90-130); Glucose 88 mg/dL (65-115); Osmolality Calculated 281 mOsm/kg (285-295); Potassium 4.4 mmol/L (3.5-5.1); Sodium 136 mmol/L (136-145)
[2021-06-19 10:43] LABS: Add Urine Microscopic? YES; Bilirubin Urine Neg (Negative); Blood Urine 2+ (Negative); Glucose Urine UA Norm (Normal); Ketones Urine 1+ (Negative); Leukocyte Esterase Urine Negative (Negative); Nitrate Urine Positive (Negative); Protein Urine Neg (Negative); Urine Appearance Clear (CLEAR); Urine Color Yellow (Yellow); Urobilinogen Urine Neg (Negative); pH Urine 5 (5-7)
[2021-06-19 10:44] LABS: Add Urine Culture? Yes; Bacteria Urine 3+ /hpf; RBC Urine 0-4 /hpf (0-2); Squamous Epithelial Cell Urine 0-4 /hpf (0-5); WBC Urine 0-4 /hpf (0-5)
--- NOTE | 2021-06-19 15:40 | P.ANESASSM_ITS ---
Pre-Anesthetic Assessment Height/Weight: Height 1.68 m Weight 95.254 kg Preop Diagnosis: Cardiomyopathy Operation Date: 06/25/21 12:10 Proposed Procedures p Defibrillator Placement(Not Applicable) - Cliff Brown MD Familial anesthetic complications: None Was Beta Chad taken within 24 hours: Yes Social Tobacco and No alcohol Exam alert, oriented x 3, clear to auscultation bilaterally and regular rate & rhythm Airway Submandibular: within normal limits Cervical ROM: within normal limits Mallampati: Class II Dentition: chipped Comments: Comments: Missing teeth Pulmonary Chronic Obstructive Pulmonary Disease, Exertional Dyspnea, Sleep Apnea and Shortness of Breath O2 at night PRN Chronic hypoxic respiratory failure CV/HEM Atrial Fibrillation, Arrythmia, Congestive Heart Failure and Myocardial Infarction Wear LifeVest after arrest in ED EKG 06/19/21 ?? ? Interpretive Statements SINUS RHYTHM MODERATE INTRAVENTRICULAR CONDUCTION DELAY? [110+ ms QRS DURATION] MODERATE T-WAVE ABNORMALITY, CONSIDER LATERAL ISCHEMIA? [-0.1+ mV T-WAVE IN I/aVL/V5/V6] Compared to ECG 02/24/2021 04:15:24 No significant changes [email or web address] 02/19 CONCLUSIONS ?1. Dilated left ventricle. Severely decreased left ventricular ?systolic function. Left ventricular ejection fraction is ?estimated at 20 %. Severe global hypokinesis. Grade II diastolic ?dysfunction, moderately elevated filling pressures. ?2. Normal right ventricular size and systolic function. ?3. Pulmonary artery pressure estimated at 32 mm Hg. ?4. Mild mitral valve regurgitation. ?5. Mildly to moderately increased left atrial size. ?6. No significant change when compared to previous ?echocardiogram dated 09/19/2019. None reported Hepatic None reported GI Gastroesophageal Reflux Disease Metabolic Fatigue Musc/skel Fibromyalgia and Rheumatoid Arthritis Prednisone 5 mg /day Neuropsych Cerebrovascular Accident ( Mini strokes w/o residual sequelae ) Anesthetic Plan ASA status: 4 Anesthesia: Anesthesia Evaluation, General and MAC Other: We discussed risk and benefits of general anesthesia including PONV, sore throat (sometimes severe), corneal abrasion, positioning and peripheral nerve injuries, life threatening allergic reaction, post operative ICU admission requiring prolonged intubation, stroke, heart attack, , and rare incidences of recall. Patient consents to proceed with general anesthesia. I discussed with the patient risks, goals, and benefits of MAC and general anesthesia. We discussed spectrum of MAC anesthesia including conversion to general as well as possibility of recall of intraoperative stimuli including discomfort/pain. Patient agrees to proceed with conversion to general as needed. Risk of > 500 ml blood loss (7ml/kg in children): No Medications/Allergies Home Medications Medication Instructions Recorded Confirmed Last Taken Type albuterol sulfate 90 mcg/actuation 2 puff INHALATION Q6H PRN 09/19/19 06/19/21 Unknown History aerosol inhaler diclofenac sodium 1 % topical gel 4 g TOPICAL QID PRN 11/11/19 06/19/21 Unknown History gabapentin 400 mg capsule 400 mg PO TID PRN cap 11/14/19 06/19/21 12/23/19 History albuterol sulfate 2.5 mg INHALATION Q6H PRN 12/26/19 06/19/21 Unknown History etanercept 50 mg/mL (1 mL) 50 mg SUBCUT .qweek #4 ml 02/18/21 06/19/21 Unknown Rx subcutaneous syringe (Enbrel) hydroxychloroquine 200 mg tablet 200 mg PO BID #60 tab 02/18/21 06/19/21 Unknown Rx prednisone 5 mg tablet 5 mg PO DAILY PRN #30 tab 02/18/21 06/19/21 Unknown Rx aspirin 81 mg chewable tablet 81 mg PO DAILY 02/24/21 06/19/21 Unknown History metolazone 2.5 mg tablet 2.5 mg PO DAILY PRN #30 tab 03/21/21 06/19/21 Unknown Rx amiodarone 400 mg tablet 400 mg PO DAILY #90 tab 03/26/21 06/19/21 Unknown Rx apixaban 5 mg tablet (Eliquis) 5 mg PO BID #180 tab 03/26/21 06/19/21 Unknown Rx furosemide 40 mg tablet 40 mg PO BID #180 tab 03/26/21 06/19/21 Unknown Rx metoprolol succinate 100 mg 100 mg PO DAILY #90 tab 03/26/21 06/19/21 Unknown Rx tablet,extended release 24 hr prenat.vits,rain,[id number] 1 tab PO DAILY 03/26/21 06/19/21 Unknown History fluticasone fur. 100 mcg-umeclid 1 inh INHALATION DAILY 30 Days #60 03/22/22 04/20/22 Unknown Rx 62.5 mcg-vilant 25 mcg ea inhalat.powder (Trelegy Ellipta) losartan 25 mg tablet 25 mg PO QNOON 06/19/21 06/19/21 Unknown History Allergies Allergy/AdvReac Type Severity Reaction Status Date / Time dronedarone Allergy Severe rash, Verified 06/19/21 09:12 swelling doxacurium Allergy HIVES,RASH Verified 06/19/21 09:12 sulfamethoxazole Allergy ALGY-Rash Verified 06/19/21 09:12 [From Bactrim] trimethoprim [From Bactrim] Allergy ALGY-Rash Verified 06/19/21 09:12 [facility] Anesthesia Medical History Atrial fibrillation Atrial flutter CHF (congestive heart failure) COPD (chronic obstructive pulmonary disease) Edema leg Emphysema/COPD Fibromyalgia GERD (gastroesophageal reflux disease) History of coronary angiogram Hypertension Hypotension Nonischemic cardiomyopathy Ejection fraction 20% Osteoarthritis Rheumatoid arthritis Sinus tachycardia Tobacco dependency Surgical History H/O: hysterectomy S/P tonsillectomy Family History Father Cancer Mother Cancer Sister Cancer Other CAD (coronary artery disease) Hyperlipidemia Hypertension Lung disease Denies family history of Psychiatric illness Social History Smoking and tobacco status: current every day smoker cigarettes Packs smoked per day: 2 Years cigarettes smoked: 50 [ Other cigarette details: Started at age 10 years] Alcohol intake: never History of recent travel: No Data Anesthesia : 06/19/21 09:35 06/19/21 09:35 Short CBC 06/19/21 Range/Units 09:35 WBC 6.3 (4.0-10.0) 10^3/uL Hgb 13.4 (11.5-15.3) g/dL Hct 41.5 (37.0-47.0) % MCV 93.0 (81-99) fl Plt Count 205 (130-400) 10^3/cmm Neut % (Auto) 56.6 % Neut # (Auto) 3.58 (1.8-7.7) 10^3/uL BMP 06/19/21 09:35 Sodium 136 Potassium 4.4 Chloride 101 Carbon Dioxide 28 BUN 12 Creatinine 0.8 Glucose 88 Calcium 9.5 Urine 06/19/21 Range/Units 09:40 Urine Color Yellow (Yellow) Urine Appearance Clear (CLEAR) Urine pH 5 (5-7) Ur Specific [place] 1.020 (1.005-1.030) Urine Protein Neg (Negative) Urine Glucose (UA) Norm (Normal) Urine Ketones 1+ H (Negative) Urine Nitrate Positive H (Negative) Urine Bilirubin Neg (Negative) Ur Leukocyte Esterase Negative (Negative) Urine RBC 0-4 H (0-2) /hpf Urine WBC 0-4 H (0-5) /hpf Cardiac Studies: Echocardiogram 02/24/21 Echocardiogram Ultrasound 09/23/19 Cardiac Event Monitor 11/17/19
[2021-06-25] VITALS (22 sets, daily range): BP systolic 104–162; BP diastolic 60–96; PULSE 80–96; RESP 14–20; TEMP 36.1–37.2; O2SAT 91–99; BMI 33.9
--- NOTE | 2021-06-25 | SCC_ITS ---
Procedure done: AICD implantation 27.4 seconds of fluoroscopic guidance, for a cumulative dose of 7.85 mGy, was provided to Dr. Brown by the radiology department. C-arm images of the chest were saved for the patient's permanent record. [facility]
--- NOTE | 2021-06-25 10:25 | SC_ITS ---
WS: [id number] C-ARM RADIOGRAPHS CHEST; 2 IMAGES HISTORY: AICD implantation COMPARISON: None available. Intraoperative imaging during AICD placement. SC/C-arm FL for Pacemaker IMPRESSION: Intraoperative imaging during AICD placement.
[2021-06-25] MEDS: sodium chloride 0.9% 1,000 ML 30 ML IV (11:04)
--- NOTE | 2021-06-25 12:21 | P.HP_ITS ---
Providers/Chief Complaint Admitting Physician: Dr. Brown/cardiothoracic surgery Primary Care Provider: Saman Florez NP Chief Complaint: arrhythmia History of Present Illness Shana Roy is a 61 year old female whom I have previously seen as an outpatient on March 28 initially and then with follow-up May 24 of this year for nonischemic cardiomyopathy with ejection fraction of approximately 20%. She had previously suffered cardiac arrest with ventricular fibrillation requiring cardioversion. She has recently been wearing a LifeVest. At the time of my original visit with her in March, she was recovering from bronchitis which was being treated by her primary care provider. This was allowed to continue she also followed up with Dr. Mandel from pulmonary medicine. He has cleared her for AICD placement, encouraged her to stop all tobacco use, and to begin again wearing her previously prescribed CPAP machine. She had no further cardiac arrest events since my original encounter with her back in March. She had prior cardiac catheterization revealing no substantial obstructive coronary disease. Review of Systems Const: Reports: fatigue; Denies: fever(s) or chills ENMT: Denies: throat pain Card: Reports: palpitations, edema, swelling of feet/ankles, pre-syncope and orthopnea; Denies: chest pain Resp: Reports: dyspnea, non-productive cough and wheezing; Denies: pain on inspiration GI: Denies: abdominal pain, nausea or vomiting Musc: Reports: back pain, joint pain and joint swelling; Denies: extremity pain or joint redness Neuro: Reports: numbness in extremities; Denies: headache(s) Psych: Denies: anxiety or depression Carlos/Lymph: Denies: easy bruising or easy bleeding Medications/Allergies Home Medications Medication Instructions Recorded Confirmed Last Taken Type albuterol sulfate 90 mcg/actuation 2 puff INHALATION Q6H PRN 09/19/19 06/25/21 06/24/21 History aerosol inhaler diclofenac sodium 1 % topical gel 4 g TOPICAL QID PRN 11/11/19 06/19/21 Unknown History gabapentin 400 mg capsule 400 mg PO TID PRN cap 11/14/19 06/25/21 06/18/21 History albuterol sulfate 2.5 mg INHALATION Q6H PRN 12/26/19 06/25/21 06/24/21 History etanercept 50 mg/mL (1 mL) 50 mg SUBCUT .qweek #4 ml 02/18/21 06/25/21 06/17/21 Rx subcutaneous syringe (Enbrel) hydroxychloroquine 200 mg tablet 200 mg PO BID #60 tab 02/18/21 06/25/21 06/18/21 Rx prednisone 5 mg tablet 5 mg PO DAILY PRN #30 tab 02/18/21 06/25/21 Unknown Rx aspirin 81 mg chewable tablet 81 mg PO DAILY 02/24/21 06/25/21 06/18/21 History metolazone 2.5 mg tablet 2.5 mg PO DAILY PRN #30 tab 03/21/21 06/25/21 06/23/21 Rx amiodarone 400 mg tablet 400 mg PO DAILY #90 tab 03/26/21 06/25/21 06/19/21 Rx apixaban 5 mg tablet (Eliquis) 5 mg PO BID #180 tab 03/26/21 06/25/21 06/18/21 R x furosemide 40 mg tablet 40 mg PO BID #180 tab 03/26/21 06/25/21 06/23/21 Rx metoprolol succinate 100 mg 100 mg PO DAILY #90 tab 03/26/21 06/25/21 06/25/21 09:00 Rx tablet,extended release 24 hr prenat.vits,rain,yan-tasl-bsivf 1 tab PO DAILY 03/26/21 06/19/21 Unknown History fluticasone fur. 100 mcg-umeclid 1 inh INHALATION DAILY 30 Days #60 05/21/21 06/25/21 06/23/21 Rx 62.5 mcg-vilant 25 mcg ea inhalat.powder (Trelegy Ellipta) losartan 25 mg tablet 25 mg PO QNOON 06/19/21 06/25/21 06/25/21 History Allergies Allergy/AdvReac Type Severity Reaction Status Date / Time dronedarone Allergy Severe rash, Verified 06/19/21 09:12 swelling doxacurium Allergy HIVES,RASH Verified 06/19/21 09:12 sulfamethoxazole Allergy ALGY-Rash Verified 06/19/21 09:12 [From Bactrim] trimethoprim [From Bactrim] Allergy ALGY-Rash Verified 06/19/21 09:12 PFSH Acute PFSH: Medical History Atrial fibrillation Atrial flutter CHF (congestive heart failure) COPD (chronic obstructive pulmonary disease) Edema leg Emphysema/COPD Fibromyalgia GERD (gastroesophageal reflux disease) History of coronary angiogram Hypertension Hypotension Nonischemic cardiomyopathy Ejection fraction 20% Osteoarthritis Rheumatoid arthritis Sinus tachycardia Tobacco dependency Surgical History H/O: hysterectomy S/P tonsillectomy Family History Father Cancer Mother Cancer Sister Cancer Other CAD (coronary artery disease) Hyperlipidemia Hypertension Lung disease Denies family history of Psychiatric illness Social History Smoking and tobacco status: current every day smoker cigarettes Packs smoked per day: 2 Years cigarettes smoked: 50 [ Other cigarette details: Started at age 10 years] Alcohol intake: never History of recent travel: No Vitals/I&O/Wt Last Vital Signs Temp 97.3 F L 06/25/21 10:38 Pulse 96 06/25/21 10:38 Resp 20 H 06/25/21 10:38 BP 135/75 06/25/21 10:38 Pulse Ox 93 06/25/21 10:38 Physical Exam Const: COMMON NORMALS: no acute distress; negative for average body habitus NUTRITIONAL APPEARANCE: obese HENMT: COMMON NORMALS: normocephalic, atraumatic, hearing grossly normal bilaterally and external ears normal Eye: COMMON NORMALS: Equal, round and reactive pupils present, EOMs intact bilaterally and conjunctivae normal Neck/C-Spine: COMMON NORMALS: no lymphadenopathy Chest: COMMONS NORMALS: normal palpation of entire chest wall Resp: COMMON NORMALS: normal respiratory effort EFFORT & INSPECTION: Yes able to speak in complete sentences and Yes symmetric chest movement AUSCULTATION: abnormal I/E ratio Cardio: COMMON NORMALS: regular rhythm, S1 normal heart sound present and No murmurs present (Cardio) RATE: tachycardic GI: COMMON NORMALS: Normal to inspection, nondistended, normoactive bowel s ounds present INSPECTION: Yes central obesity Extremity: NARRATIVE EXTREMITY EXAM: 1+ bilateral lower extremity edema Neuro: COMMON NORMALS: patient oriented x3, moves all extremities, no focal motor deficits and no sensory deficits noted Data : 06/19/21 09:35 06/19/21 09:35 A&P Assessment and plan (1) Nonischemic cardiomyopathy: 61-year-old obese female with severe nonischemic cardiomyopathy with ejection fraction of 20%. Previous history of malignant arrhythmia. AICD recommendation has been discussed. Details of risk of procedure reviewed. Rationale for implantation were discussed. Potential risk for infection requiring explantation, need for long-term follow-up, lead migration requiring need for revision, need for lead replacement or generator replacement, pain after surgery, and early postoperative activity restrictions were frankly discussed. Appropriate consents have been provided for review and signature. 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
--- NOTE | 2021-06-25 12:51 | P.ANESUD_ITS ---
Pre-Anesthetic Update Pre-Anesthetic Assessment: Date of Surgery/Procedure: 06/25/21 Preop Kiley gnosis: Worsening of LV function severely depressed 20% now Proposed Procedure: Operation Date: 06/25/21 11:55 Proposed Procedures p Defibrillator Placement(Not Applicable) - Cliff Brown MD Any changes to Pre-Anesthetic Assessment?: No Last Intake: Intake Last Liquid Date 06/24/21 Last Liquid Time 21:00 Last Solid Date 06/24/21 Last Solid Time 21:00 Vitals: Temperature 97.3 F L 06/25/21 10:38 Temperature Source Temporal Artery S can 06/25/21 10:38 Pulse Rate 96 06/25/21 10:38 Pulse Rhythm 06/25/21 10:39 Pulse Strength 3+ Normal 06/25/21 10:39 Respiratory Rate 20 H 06/25/21 10:38 Blood Pressure 135/75 06/25/21 10:38 Blood Pressure Gladis n 95 06/25/21 10:38 Pulse Oximetry 93 06/25/21 10:38 Oxygen Delivery Me thod 06/25/21 10:39 Exam: Pre-Anes Outpt Exam: alert, oriented x 3 and regular rate & rhythm Additional Exam Findings (including area of procedure): b/l wheezing Cardiac Studies: Echocardiogram 02/24/21 Echocardiogram Ultrasound 09/23/19 Cardiac Event Monitor 11/17/19
[2021-06-25] MEDS: ipratropium 0.5 mg/2.5 mL Neb INHALATION (13:25)
[2021-06-25] MEDS: lidocaine 2% INJ 20 mL INJECTION (13:59)
[2021-06-25] MEDS: ceFAZolin 1,000 mg SDV 1000 MG IRRIGATION (13:59)
--- NOTE | 2021-06-25 15:03 | PM.OP ---
Operative Report Date of procedure: June 25, 2021 Pre-op diagnosis: Preop Diagnosis Worsening of LV function severely depressed 20% now Post-op diagnosis: same Procedure done: AICD implantation Implants: AICD generator AICD RV lead Specimens removed/disposition: None Pathology: none sent Surgeon: Cliff Brown Anesthesia: MAC and Local Complications: None: Post procedure chest x-ray pending Condition: stable Disposition: observation Brief History: 61-year-old female with nonischemic severe cardiomyopathy with ejection fraction of 20%. Patient has previously had a cardiac arrest with ventricular fibrillation requiring cardioversion. She has received maximal medical management with no substantial improvement in her cardiac performance, therefore AICD has been recommended by cardiology. Rationale was carefully discussed with Ms. Roy and family. Appropriate consents have been reviewed and signed. Procedure: Procedure: Ms. Roy was taken to the OR suite and placed in the supine position over a shoulder roll. She received conscious sedation with continuous anesthesia monitoring by. Her entire chest was sterilely prepped and draped. 1% lidocaine was infiltrated in the left subclavicular region. While in Trendelenburg position, utilizing modified seldinger technique, a guidewire was placed in the left subclavian vein. This was confirmed in position by fluoroscopy. Next, after infiltration with lidocaine, a subcutaneous pocket was created beginning from the exit point of the guidewire and extending laterally and inferiorly. Cautery was utilized to create the pocket just above the pectoralis musculature. Hemostasis was confirmed. An antibiotic-soaked sponge was placed in the wound. A dilator and tear-away sheath was placed over the guidewire and advanced under fluoroscopy. Guidewire and dilator were removed. Next using a combination of curved and straight stylettes, the right ventricular lead was placed in position by fluoroscopy. The distal screw was extended. Interrogation was then performed confirming appropriate parameters. The tear-away sheath was then removed and the ventricular lead was sewn to the floor of the subcutaneous pocket. Generator was brought into the field, and after confirmation of hemostasis in the subcutaneous pocket, the lead was connected to the generator with appropriate capture. The entire system was interrogated by fluoroscopy. Lead and generator were secured in the pocket. Sponge and needle count was correct. The wound was then closed in 2 layers of 3-0 Vicryl suture. Skin was reapproximated in a subcuticular manner with 4-0 Monocryl suture. A pressure dressing was applied. The left arm was placed in a sling. Ms. Roy had equal breath sounds bilaterally. She was then transferred to the PACU, where chest x-ray is currently pending. I did prenatal genetic counselor with the family at the completion of the procedure. Following are the specifics of this system: Right ventricular lead is 62 cm and model [id number]. Serial number [id number] Ventricular lead had sensing of 17.7 mV with an impedance of 798 ohms. Threshold was 1.0 V [employer] AICD generator: Model # [id number] Serial #[id number]
--- NOTE | 2021-06-25 15:15 | XR_ITS ---
WS: [id number] PORTABLE CHEST HISTORY: post defibrillator placement COMPARISON: 02/27/2021 Interval placement of a LEFT subclavian AICD. AICD projects over the expected location of the RIGHT v entricle. Mild interstitial thickening is chronic throughout both lungs. No pleural effusion or pneumothorax. Cardiac size: Mildly enlarged cardiac silhouette. Mediastinum/Aorta: Normal mediastinum. Osteopenic. XR/XR chest 1V portable [id number] IMPRESSION: Interval placement of a LEFT AICD device with no complications apparent.
[2021-06-25] MEDS: fentaNYL 50 mcg/mL INJ 2mL IVP (15:32)
--- NOTE | 2021-06-25 15:46 | SUR.PHASEI ---
1515 pt awake alert talkative, MONITOR SR WITH BBB NO ECTOPY NOTED HOB AT 30 DEGREES, X RAY HERE, DR ROGERS CALLED , OK FOR PT TO HAVE ICE CHIPS AND GO TO FLOOR . VSS , ID BRACELET TO RT WRIST ,PT ID'D WITH 2 IDENTIFIERS
--- NOTE | 2021-06-25 15:53 | SUR.PHASEI ---
REPORT CALLED TO FLOOR PT SLEEPS IF NOT DISTURBED, MONITOR SR NO ECTOPY
[2021-06-25] MEDS: hydroxychloroquine 200 mg Tablet PO (17:41)
[2021-06-25] MEDS: HYDROcodone-acetaminophen 5-325 mg Tablet 1 TAB PO ×2 (17:41→22:03)
[2021-06-25] MEDS: FUROsemide 40 mg Tablet PO (17:42)
--- NOTE | 2021-06-25 17:45 | PC.NURSE ---
Patient AAOx4, VSS, sitting up in bed and OOB to BSC with minimal c/o pain. Tolerating diet and moving self in bed. Drinking well, room clean and clutter free with call light in reach.
--- NOTE | 2021-06-25 17:47 | ANE.PACU2 ---
Inpatient post-anesthesia follow up: Airway intact: Yes Vital signs: Temperature 96.9 F Pulse Rate 80 Respiratory Rate 17 Blood Pressure 106/63 Pulse Oximetry 92 Oxygen Delivery Me thod Nasal Cannula Oxygen Flow Rate 2.5 Fraction of Inspir ed Oxygen Hydration adequate: Yes Nausea and vomiting: No Pain level: 6 Mental status: Baseline
[2021-06-25] MEDS: ceFAZolin 1,000 MG in sodium chloride 0.9% (plus) 50 ML 100 MG IV (20:05)
[2021-06-25] MEDS: TRAMadol 50 mg Tablet PO (20:05)
[2021-06-25] MEDS: morphine 4 mg/mL SDV 1 mL 2 MG IVP (23:51)
[2021-06-26] VITALS (7 sets, daily range): BP systolic 115–134; BP diastolic 72–83; PULSE 72–98; RESP 16–18; TEMP 36.4–37; O2SAT 95–99
[2021-06-26] MEDS: albuterol 8 gm MDI 2 PUFF INHALATION ×2 (00:07→08:08)
[2021-06-26] MEDS: ceFAZolin 1,000 MG in sodium chloride 0.9% (plus) 50 ML 100 MG IV (03:44)
--- NOTE | 2021-06-26 07:25 | P.DS_ITS ---
Discharge Providers Date of Admission: 06/25/21 15:28 Date of Discharge: June 26, 2021 Attending Provider at Admission: Cliff Brown MD Attending Provider at Discharge: Cliff Brown MD Primary Care Provider: Saman Florez NP Diagnoses at Discharge Discharge Diagnosis (1) Nonischemic cardiomyopathy: Details from hospital stay: Ms. Roy is a 61-year-old female who is electively admitted for planned AICD implantation. She has nonischemic severe cardiomyopathy with ejection fraction of 20%. She had a recent history of cardiac arrest with ventricular fibrillation requiring cardioversion. AICD implantation was recommended for prophylaxis. She was electively admitted on June 25 and underwent single-lead AICD implantation. Postoperatively, she has convalesced on the natarajan with cardiac monitoring. She received prophylactic postoperative antibiotics. Device interrogation this morning is unremarkable. Surgical dressing was removed. There is been mild ecchymosis noted but no substantial fluid collection. Minimal postoperative discomfort. She is eager for discharge to home. We will continue oral antibiotics for another 2 days. She will be scheduled for follow-up at [facility] clinic within the week. Discharge instructions been carefully reviewed with her. At the time of discharge, she is in stable condition. Status: Acute Permanent problem details: Ejection fraction 20% Reason for Visit Reason for Visit: arrhythmia Physical Exam Chest: OTHER: Mild ecchymosis at the AICD insertion site. Outer pressure dressing was removed. Inner dressing is dry. She will continue with limited activity with her left upper extremity for the next week. Resp: COMMON NORMALS: normal respiratory effort and clear to auscultation bilaterally AUSCULTATION: clear to auscultation bilaterally Cardio: COMMON NORMALS: regular rate, regular rhythm, S1 normal heart sound present and No murmurs present (Cardio) RATE: regular rate RHYTHM: regular rhythm HEART SOUNDS: S1 normal heart sound present Extremity: COMMON NORMALS: no clubbing, cyanosis or edema Discharge Data Studies Completed and Pending Completed Studies During Hospitalization Category Date Time Status CXRP [XR chest 1V portable [id number]] Routine Exams 06/25/21 15:15 Completed Radiology Impressions C-Arm Fluoroscopy 06/25/21 10:25 IMPRESSION: Intraoperative imaging during AICD placement. Chest X-Ray 06/25/21 15:15 IMPRESSION: Interval placement of a LEFT AICD device with no complications apparent. Laboratory Results WBC 6.3 10^3/uL (4.0-10.0) 06/19/21 09:35 RBC 4.46 10^6/uL (4.1-5.3) 06/19/21 09:35 Hgb 13.4 g/dL (11.5-15.3) 06/19/21 09:35 Hct 41.5 % (37.0-47.0) 06/19/21 09:35 MCV 93.0 fl (81-99) 06/19/21 09:35 MCH 30.0 pg (28.0-34.0) 06/19/21 09:35 MCHC 32.3 g/dL (30.0-36.0) 06/19/21 09:35 RDW 12.7 % (12.1-15.1) 06/19/21 09:35 Plt Count 205 10^3/cmm (130-400) 06/19/21 09:35 MPV 10.7 fL (7.4-10.4) H 06/19/21 09:35 Neut % (Auto) 56.6 % 06/19/21 09:35 Lymph % (Auto) 29.0 % 06/19/21 09:35 [place] % (Auto) 10.3 % 06/19/21 09:35 Eos % (Auto) 3.3 % 06/19/21 09:35 Baso % (Auto) 0.5 % 06/19/21 09:35 Neut # (Auto) 3.58 10^3/uL (1.8-7.7) 06/19/21 09:35 Lymph # (Auto) 1.8 10^3/uL (0.8-4.8) 06/19/21 09:35 [place] # (Auto) 0.7 10^3/uL (0.2-0.9) 06/19/21 09:35 Eos # (Auto) 0.2 10^3/uL (0.0-0.8) 06/19/21 09:35 Baso # (Auto) 0.0 10^3/uL (0.0-0.1) 06/19/21 09:35 Nucleated RBC % (auto) 0 % 06/19/21 09:35 Nucleated RBCs # 0.0 /100WBC 06/19/21 09:35 Sodium 136 mmol/L (136-145) 06/19/21 09:35 Potassium 4.4 mmol/L (3.5-5.1) 06/19/21 09:35 Chloride 101 mmol/L (98-107) 06/19/21 09:35 Carbon Dioxide 28 mmol/L (22-29) 06/19/21 09:35 Anion Gap 11.4 (5-19) 06/19/21 09:35 BUN 12 mg/dL (8-23) 06/19/21 09:35 Creatinine 0.8 mg/dL (0.5-0.9) 06/19/21 09:35 GFR Calculation 72.4 mL/min (90-130) L 06/19/21 09:35 Glucose 88 mg/dL (65-115) 06/19/21 09:35 Calculated Osmolality 281 mOsm/kg (285-295) L 06/19/21 09:35 Calcium 9.5 mg/dL (8.5-10.5) 06/19/21 09:35 Urine Color Yellow (Yellow) 06/19/21 09:40 Urine Appearance Clear (CLEAR) 06/19/21 09:40 Urine pH 5 (5-7) 06/19/21 09:40 Ur Specific [place] 1.020 (1.005-1.030) 06/19/21 09:40 Urine Protein Neg (Negative) 06/19/21 09:40 Urine Glucose (UA) Norm (Normal) 06/19/21 09:40 Urine Ketones 1+ (Negative) H 06/19/21 09:40 Urine Blood 2+ (Negative) H 06/19/21 09:40 Urine Nitrate Positive (Negative) H 06/19/21 09:40 Urine Bilirubin Neg (Negative) 06/19/21 09:40 Urine Urobilinogen Neg mg/dL (Negative) 06/19/21 09:40 Ur Leukocyte Esterase Negative (Negative) 06/19/21 09:40 Urine RBC 0-4 /hpf (0-2) H 06/19/21 09:40 Urine WBC 0-4 /hpf (0-5) H 06/19/21 09:40 Ur Squamous Epith Cells 0-4 /hpf (0-5) H 06/19/21 09:40 Amorphous Sediment Not Reportable 06/19/21 09:40 Urine Bacteria 3+ /hpf (NONE) H 06/19/21 09:40 Vitals Last Vital Signs Temp 97.6 F 06/26/21 04:00 Pulse 80 06/26/21 04:00 Resp 17 06/26/21 04:00 BP 115/72 06/26/21 04:00 Pulse Ox 96 06/26/21 04:00 Discharge Plan Discharge Patient Disposition: Home Condition: Stable Prescriptions: New hydrocodone-acetaminophen 5-325 mg Tablet 1 tab PO Q6H PRN (Reason: Moderate Pain) Qty: 16 0RF cephalexin 500 mg capsule 500 mg PO Q8H Qty: 6 0RF Continued Trelegy Ellipta 100-62.5-25 mcg blister with device 1 inh inhalation DAILY 30 Days Qty: 60 3RF prenat.vits,rain,uym-lueq-mokmi Tablet 1 tab PO DAILY 0RF amiodarone 400 mg tablet 400 mg PO DAILY Qty: 90 3RF Eliquis 5 mg tablet 5 mg PO BID Qty: 180 3RF furosemide 40 mg tablet 40 mg PO BID Qty: 180 3RF metoprolol succinate 100 mg tablet extended release 24 hr 100 mg PO DAILY Qty: 90 3RF Rx Instructions: Take with the 25mg to total 125mg daily Enbrel 50 mg/mL (1 mL) syringe 50 mg SUBCUT .qweek Qty: 4 5RF hydroxychloroquine 200 mg tablet 200 mg PO BID Qty: 60 2RF prednisone 5 mg tablet 5 mg PO DAILY PRN (Reason: flares) Qty: 30 1RF metolazone 2.5 mg tablet 2.5 mg PO DAILY PRN (Reason: weight gain) Qty: 30 0RF Rx Instructions: Take 30 minutes before morning lasix dose diclofenac sodium 1 % gel 4 g TOPICAL QID PRN (Reason: Pain) 0RF albuterol sulfate 90 mcg/actuation Hfa Aerosol Inhaler 2 puff INHALATION Q6H PRN (Reason: shortness of breath) 0RF gabapentin 400 mg capsule 400 mg PO TID PRN (Reason: unknown) 0RF albuterol sulfate 2.5 mg /3 mL (0.083 %) solution for nebulization 2.5 mg inhalation Q6H PRN (Reason: unknown) 0RF aspirin 81 mg Tablet,Chewable 81 mg PO DAILY 0RF losartan 25 mg tablet 25 mg PO QNOON 0RF Discharge Orders: Discharge Order (Routine); Ordered 06/26/21 Ordered By: Cliff Brown Referrals: [facility] [Provider Group] - 4-7 days (pacemaker clinic appointment with JAMES KNIGHT.) Discharge Diet: Usual diet Discharge Activity: Limit activity as instructed Patient Instructions: Opioid Safety Activity Restrictions/Additional Instructions: May remove bandage in 2 days May begin daily showers in 4 days No swimming or tub baths x 2 weeks No ointments on incision May recover incision after removal of original dressing, if desired, to prevent irritation from clothing. Report drainage, redness, heat, increased pain, or swelling to clinic Do not resume your Eliquis until June 28 Discharge Attestations Time Spent in Discharge Care*: less than 30 min Specific Discharge Activities: educating patient, discussing with case resolution specialist/social workers/dc planners, documenting/other paperwork and evaluating patient/reviewing data Status at Discharge: Cognitive status at discharge: cognitively intact , Behavioral status at discharge: cooperative , Functional status at discharge: independent ambulation , Overall status at discharge: patient is progressing back to baseline Quality Metrics Clinical Quality Measures [ No reported AMI, CVA or VTE this stay] Coding Level of Care Code Acute Chg FW DC note Diagnoses Nonischemic cardiomyopathy I42.8
[2021-06-26] MEDS: metoprolol succinate ER (24 HR) 100 mg Tablet PO (09:44)
[2021-06-26] MEDS: pantoprazole DR 40 mg Tablet PO (09:44)
[2021-06-26] MEDS: amiodarone 200 mg Tablet 400 MG PO (09:44)
[2021-06-26] MEDS: FUROsemide 40 mg Tablet PO (09:44)
[2021-06-26] MEDS: losartan 50 mg Tablet 25 MG PO (09:44)
[2021-06-26] MEDS: aspirin 81 mg Chew Tablet PO (09:44)
[2021-06-26] MEDS: hydroxychloroquine 200 mg Tablet PO (09:48)
[2021-06-26] MEDS: ceFAZolin 1,000 MG in sodium chloride 0.9% (plus) 100 ML 200 MG IV (11:01)
== END 2021-06-26 11:59 | disposition home or self-care (01) ==
LOC: MEDSURG 15:32
PROVIDERS: Admitting Provider Thoracic Surgery (Cardiothoracic Vascular Surgery); PCP Nurse Practitioner Family; Visit Provider Thoracic Surgery (Cardiothoracic Vascular Surgery)
PROC: 0JH608Z Insertion of Defibrillator Generator into Chest Subcutaneous Tissue and Fascia, Open Approach (ICD-10-PCS; CPT 33249; principal; 2021-06-25 11:45)
DX: I42.8 Other cardiomyopathies (principal); Z79.82 Long term (current) use of aspirin; Z79.52 Long term (current) use of systemic steroids; J43.9 Emphysema, unspecified; M79.7 Fibromyalgia; I48.91 Unspecified atrial fibrillation; M19.90 Unspecified osteoarthritis, unspecified site; I11.0 Hypertensive heart disease with heart failure; I50.9 Heart failure, unspecified; F17.210 Nicotine dependence, cigarettes, uncomplicated; Z99.81 Dependence on supplemental oxygen; I25.2 Old myocardial infarction
CPT/HCPCS: 33249; 36415; 71045; 76000; 94640; 94664; C1722; C1777; G0378; J0690; J2250; J2270; J2704; J3010; J3490; J3535; J7030; J7611; J7644

== ENCOUNTER → 2021-07-04 10:14 | Outpatient (BNVA) | payer MEDICARE, MEDICAID, SELFPAY | PROVIDERS: PCP Nurse Practitioner Family; Visit Provider Nurse Practitioner Family | DX: Z09 Encounter for follow-up examination after completed treatment for conditions other than malignant neoplasm (principal); Z95.810 Presence of automatic (implantable) cardiac defibrillator; F17.210 Nicotine dependence, cigarettes, uncomplicated | CPT/HCPCS: 99214 ==

== ENCOUNTER → 2021-08-14 09:18 | Outpatient (BNVA) | payer MEDICAID, SELFPAY | PROVIDERS: PCP Nurse Practitioner Family; Visit Provider Nurse Practitioner Family | DX: I48.91 Unspecified atrial fibrillation (principal); I42.8 Other cardiomyopathies; Z95.810 Presence of automatic (implantable) cardiac defibrillator; F17.210 Nicotine dependence, cigarettes, uncomplicated; Z79.01 Long term (current) use of anticoagulants | CPT/HCPCS: 99214 ==

== ENCOUNTER → 2021-08-22 10:14 | Outpatient (BNVA) | payer MEDICAID, SELFPAY | PROVIDERS: PCP Nurse Practitioner Family; Visit Provider Internal Medicine Critical Care Medicine | DX: J44.9 Chronic obstructive pulmonary disease, unspecified (principal); G47.33 Obstructive sleep apnea (adult) (pediatric); I42.8 Other cardiomyopathies; J96.11 Chronic respiratory failure with hypoxia; F17.210 Nicotine dependence, cigarettes, uncomplicated; K21.9 Gastro-esophageal reflux disease without esophagitis; I10 Essential (primary) hypertension | CPT/HCPCS: 99214 ==

== ENCOUNTER → 2021-12-02 14:53 | Outpatient (BNVA) | payer MEDICARE, MEDICAID, SELFPAY | PROVIDERS: PCP Nurse Practitioner Family; Visit Provider Nurse Practitioner Family | DX: R06.00 Dyspnea, unspecified (principal); R09.02 Hypoxemia; Z95.0 Presence of cardiac pacemaker; R91.8 Other nonspecific abnormal finding of lung field | CPT/HCPCS: 71046; 99213; 99214 ==

== ENCOUNTER → 2021-12-20 12:34 | Outpatient (BNVA) | payer MEDICAID, SELFPAY | PROVIDERS: PCP Nurse Practitioner Family; Visit Provider Internal Medicine Pulmonary Disease | DX: J18.9 Pneumonia, unspecified organism (principal); J44.9 Chronic obstructive pulmonary disease, unspecified; G47.33 Obstructive sleep apnea (adult) (pediatric); F17.210 Nicotine dependence, cigarettes, uncomplicated; I42.8 Other cardiomyopathies; I48.91 Unspecified atrial fibrillation; M06.9 Rheumatoid arthritis, unspecified; Z79.01 Long term (current) use of anticoagulants | CPT/HCPCS: 71046; 93282; 99214 ==

== ENCOUNTER → 2022-01-28 09:11 | Outpatient (BNVA) | payer MEDICARE, MEDICAID, SELFPAY | PROVIDERS: PCP Nurse Practitioner Family; Visit Provider Podiatrist Foot & Ankle Surgery | DX: Q82.8 Other specified congenital malformations of skin (principal); M77.41 Metatarsalgia, right foot; M06.9 Rheumatoid arthritis, unspecified; M77.42 Metatarsalgia, left foot | CPT/HCPCS: 17110; 73630; 99204 ==

== ENCOUNTER → 2022-02-11 08:31 | Outpatient (BNVA) | payer MEDICARE, MEDICAID, SELFPAY | PROVIDERS: PCP Nurse Practitioner Family; Visit Provider Podiatrist Foot & Ankle Surgery | DX: Q82.8 Other specified congenital malformations of skin (principal); M06.9 Rheumatoid arthritis, unspecified; M77.41 Metatarsalgia, right foot; M77.42 Metatarsalgia, left foot | CPT/HCPCS: 99213 ==

== ENCOUNTER 2022-02-14 10:01 | Outpatient (CLI) | payer MEDICARE, MEDICAID, SELFPAY ==
[2022-02-14 10:47] LABS: Basophils % 0.6 %; Eosinophils # 0.3 10^3/uL (0.0-0.8); Eosinophils % 3.5 %; Hematocrit 43.1 % (37.0-47.0); Lymphocytes # 1.7 10^3/uL (0.8-4.8); Lymphocytes % 24.2 %; Mean Corpuscular HGB Conc 32.5 g/dL (30.0-36.0); Mean Corpuscular Hemoglobin 29.9 pg (28.0-34.0); Mean Corpuscular Volume 92.1 fl (81-99); Mean Platelet Volume 11.5 fL (7.4-10.4); Monocytes # 0.6 10^3/uL (0.2-0.9); Monocytes % 7.9 %; Neutrophils # 4.57 10^3/uL (1.8-7.7); Neutrophils % 63.7 %; Nucleated Red Blood Cells % 0 %; Platelet Count 159 10^3/cmm (130-400); Red Blood Count 4.68 10^6/uL (4.1-5.3); Red Cell Distribution Width 12.7 % (12.1-15.1); White Blood Count 7.2 10^3/uL (4.0-10.0)
--- NOTE | 2022-02-14 10:47 | XR_ITS ---
WS: [id number] Chest 2 views, 02/14/2022 Clinical Data: PNEUMONIA Comparison: PA and lateral chest, 12/20/2021. Findings: No nodules or effusions are seen. The right hilum is full and there may be a right infrahil ar mass. The heart is normal. The pulmonary vascularity is not increased. No pneumonia or pneumothora x is seen. There is a permanent cardiac pacemaker with the generator overlying the left chest. The ao rtic arch and descending thoracic aorta show tortuosity. There are calcifications in the left neck wh ich may be seen with carotid calcification. XR/XR chest 2V* [id number] Impression: 1. Enlargement of the right hilum with possible right infrahilar mass and recom mend CT chest. 2. Atherosclerosis and cardiomegaly.
[2022-02-14 11:11] LABS: Erythrocyte Sedimentation Rate 36 mm/hr (0-15)
[2022-02-14 11:15] LABS: Alanine Aminotransferase 11 U/L (0-33); Albumin Level 3.6 g/dL (3.5-5.2); Alkaline Phosphatase 161 U/L (35-105); Aspartate Amino Transferase 18 U/L (0-32); Blood Urea Nitrogen 18 mg/dL (8-23); C Reactive Protein 23.6 mg/L (0.0-4.9); Calcium 9.4 mg/dL (8.5-10.5); Carbon Dioxide 28 mmol/L (22-29); Chloride 102 mmol/L (98-107); Globulin 3.7 g/dL (1.3-4.6); Glomerular Filtration Rate 55.8 mL/min (90-130); Glucose 126 mg/dL (65-115); Osmolality Calculated 291 mOsm/kg (285-295); Sodium 139 mmol/L (136-145); Total Bilirubin 0.4 mg/dL (0.15-1.2); Total Protein 7.3 g/dL (6.6-8.7)
== END 2022-02-14 10:02 | disposition home or self-care (01) ==
LOC: LAB 10:05
PROVIDERS: Internal Medicine; PCP Nurse Practitioner Family; Visit Provider Nurse Practitioner Family
DX: J18.9 Pneumonia, unspecified organism (principal); R53.1 Weakness; M06.9 Rheumatoid arthritis, unspecified; I51.7 Cardiomegaly; I70.90 Unspecified atherosclerosis; Z95.810 Presence of automatic (implantable) cardiac defibrillator
CPT/HCPCS: 36415; 71046; 80053; 85025; 85651; 86140; 93282

== ENCOUNTER 2022-02-20 20:31 | Inpatient (IN) | payer MEDICARE, MEDICAID, SELFPAY ==
[2022-02-20 20:38] VITALS: BP 119/69; PULSE 90; RESP 18; TEMP 36.5; O2SAT 95; BMI 34.7
--- NOTE | 2022-02-20 20:45 | W.ED.SOB ---
Documented by User: Hussain Shane MD 03/08/22 18:37 HPI - SOB/Dyspnea General: Chief Complaint: ER Hold Stated Complaint: chest pain SOB back pain Time Seen by Provider: 02/20/22 20:39 History of Present Illness: HPI Narrative: Ms. Roy is a 62-year-old lady with significant past medical history of COPD A. fib on Eliquis, heart failure with reduced ejection fraction presenting to the emergency department due to shortness of breath and chest pain. Reports over the past week perhaps having increased cough however symptoms began to significantly worsen today. Notes left chest pain that is sharp and pleuritic. Radiates to the left arm and back. Associated shortness of breath. Symptoms are worse with exertion and movement do not go with rest. Moderate to severe in intensity. No other specific changes in health, exacerbating, or alleviating factors identified. Pertinent past history: COPD and congestive heart failure Onset (ago): hour(s) Context: recent illness Timing: progressively worsening Severity: severe Exacerbating factors: exertion Relieving factors: nothing Known history of: COPD and congestive heart failure Associated symptoms: Reports chest congestion, chest pain and cough Review of Systems General: Reports: 10 or more systems reviewed and unremarkable except in HPI and below Card: Reports: chest pain Resp: Reports: chest congestion PFS ED PFSH: Medical History Atrial fibrillation Atrial flutter CHF (congestive heart failure) COPD (chronic obstructive pulmonary disease) Edema leg Emphysema/COPD Fibromyalgia GERD (gastroesophageal reflux disease) History of coronary angiogram Hypertension Hypotension Nonischemic cardiomyopathy Ejection fraction 20% Osteoarthritis Rheumatoid arthritis Sinus tachycardia Tobacco dependency Surgical History AICD (automatic cardioverter/defibrillator) present H/O: hysterectomy S/P tonsillectomy Family History Father Cancer Mother Cancer Sister Cancer Other CAD (coronary artery disease) Hyperlipidemia Hypertension Lung disease Denies family history of Psychiatric illness Social History Smoking and tobacco status: current every day smoker cigarettes Packs smoked per day: 2 Years cigarettes smoked: 50 [ Other cigarette details: Started at age 10 years] Alcohol intake: never History of recent travel: No Physical Exam Const: COMMON NORMALS: alert GENERAL APPEARANCE: cooperative, well developed and ill appearing (Somewhat) HENMT: COMMON NORMALS: normocephalic and atraumatic HEAD & SCALP: normocephalic and atraumatic Eye: COMMON NORMALS: conjunctivae normal CONJUNCTIVA: Yes conjunctivae normal SCLERA: sclerae normal Neck/C-Spine: COMMON NORMALS: supple GENERAL: Yes trachea midline Resp: EFFORT & INSPECTION: Yes able to speak in complete sentences and Yes tachypneic AUSCULTATION: wheezes Cardio: COMMON NORMALS: regular rate and regular rhythm RATE: regular rate RHYTHM: regular rhythm GI: COMMON NORMALS: Soft to palpation PALPATION: Yes Soft to palpation and No Tenderness to palpation present (GI) Extremity: GENERAL: Yes normal exam except as noted and Yes edema Neuro: COMMON NORMALS: moves all extremities SENSORIUM/ORIENTATION: Yes alert and No Orientation impaired Psych: COMMON NORMALS: mental status grossly normal and Normal thought process present THOUGHT PROCESS: Normal thought process present Course Vital Signs: Vital signs: Vital Signs Temperature 98.6 F 02/22/22 04:00 Pulse Rate 74 02/22/22 17:27 Respiratory Rate 20 H 02/22/22 17:27 Blood Pressure 151/95 02/22/22 17:27 Pulse Oximetry 94 02/22/22 17:27 Oxygen Delivery Me thod 02/22/22 15:00 Oxygen Flow Rate 2.5 02/22/22 15:00 MDM - SOB/Dyspnea Medical Decision Making 62-year-old lady presenting with shortness of breath and chest pain. Exam as above. EKG notable for sinus rhythm, left bundle branch block, nonspecific ST segment abnormalities, no STEMI. Patient treated with RT treatment and steroids as well as Lasix. Handed off to Dr. Pitt pending completion of treatment and laboratory studies with possible admission plan for exacerbation of underlying lung disease. Patient presents here with shortness of breath history of COPD CHF she does have wheezing here to get multiple treatments continue to have wheezing requiring [address] shows no signs of pulm rhythm I spoke to hospitalist will admit. Medical Records I reviewed the patient's medical records. Lab Data I reviewed the patient's lab results. 02/20/22 21:14 02/20/22 21:14 Labs/Radiology: Radiology Impressions Chest X-Ray 02/20/22 20:48 IMPRESSION: 1. Cardiomegaly and pulmonary vascular congestion. 2. Bibasilar atelectasis versus minimal infiltrate. Chest CTA 02/20/22 21:50 IMPRESSION: 1. Negative for pulmonary embolus. 2. Scattered prominent mediastinal lymph nodes measuring up to 17 mm, nonspecific. 3. Small bilateral pleural effusions. 4. Main pulmonary artery is somewhat prominent which can be a finding of pulmonary artery hypertension. 5. Minimal coronary artery atherosclerotic calcifications. 6. Emphysematous changes. 7. Right hilar adenopathy measuring up to 2.8 cm, new compared to prior exam, nonspecific, however, is potentially concerning for underlying malignancy. 8. Patchy bilateral atelectasis versus infiltrate. Laboratory Results WBC 5.4 10^3/uL (4.0-10.0) 02/21/22 06:40 RBC 4.80 10^6/uL (4.1-5.3) 02/21/22 06:40 Hgb 14.4 g/dL (11.5-15.3) 02/21/22 06:40 Hct 44.5 % (37.0-47.0) 02/21/22 06:40 MCV 92.7 fl (81-99) 02/21/22 06:40 MCH 30.0 pg (28.0-34.0) 02/21/22 06:40 MCHC 32.4 g/dL (30.0-36.0) 02/21/22 06:40 RDW 12.4 % (12.1-15.1) 02/21/22 06:40 Plt Count 199 10^3/cmm (130-400) 02/21/22 06:40 MPV 11.4 fL (7.4-10.4) H 02/21/22 06:40 Neut % (Auto) 83.3 % 02/21/22 06:40 Lymph % (Auto) 15.4 % 02/21/22 06:40 [place] % (Auto) 0.9 % 02/21/22 06:40 Eos % (Auto) 0.0 % 02/21/22 06:40 Baso % (Auto) 0.2 % 02/21/22 06:40 Neut # (Auto) 4.49 10^3/uL (1.8-7.7) 02/21/22 06:40 Lymph # (Auto) 0.8 10^3/uL (0.8-4.8) 02/21/22 06:40 [place] # (Auto) 0.1 10^3/uL (0.2-0.9) L 02/21/22 06:40 Eos # (Auto) 0.0 10^3/uL (0.0-0.8) 02/21/22 06:40 Baso # (Auto) 0.0 10^3/uL (0.0-0.1) 02/21/22 06:40 Nucleated RBC % (auto) 0 % 02/21/22 06:40 Nucleated RBCs # 0.0 /100WBC 02/21/22 06:40 D-Dimer 18.36 ug/mIFEU (0-0.59) H 02/20/22 21:14 Sodium 135 mmol/L (136-145) L 02/21/22 05:43 Potassium 4.2 mmol/L (3.5-5.1) 02/21/22 05:43 Chloride 97 mmol/L (98-107) L 02/21/22 05:43 Carbon Dioxide 23 mmol/L (22-29) 02/21/22 05:43 Anion Gap 19.2 (5-19) H 02/21/22 05:43 BUN 14 mg/dL (8-23) 02/21/22 05:43 Creatinine 0.9 mg/dL (0.5-0.9) 02/21/22 05:43 GFR Calculation 63.0 mL/min (90-130) L 02/21/22 05:43 Glucose 190 mg/dL (65-115) H 02/21/22 05:43 Calculated Osmolality 286 mOsm/kg (285-295) 02/21/22 05:43 Lactic Acid 1.4 mmol/L (0.5-2.2) 02/20/22 21:14 Calcium 8.9 mg/dL (8.5-10.5) 02/21/22 05:43 Magnesium 1.9 mg/dL (1.7-2.3) 02/21/22 05:43 Total Bilirubin 0.3 mg/dL (0.15-1.2) 02/20/22 21:14 AST 18 U/L (0-32) 02/20/22 21:14 ALT 10 U/L (0-33) 02/20/22 21:14 Alkaline Phosphatase 167 U/L (35-105) H 02/20/22 21:14 Troponin T Baseline 14 ng/L (0-10) H 02/20/22 21:14 Troponin T 120 Minute 410.8 ng/L (0-10) H 02/21/22 00:37 Delta Troponin T 396.8 ABS# (0-10) H* 02/21/22 00:37 Troponin T Hi Sens 6Hr 688.1 ng/L (0-10) H 02/21/22 03:43 Troponin T Hi Sens 6Hr Delta 674.1 ng/L (0-12) H* 02/21/22 03:43 C-Reactive Protein 12.1 mg/L (0.0-4.9) H 02/21/22 05:43 NT-Pro-B Natriuret Pep 2236 pg/mL (0-125) H 02/20/22 21:14 Total Protein 7.7 g/dL (6.6-8.7) 02/20/22 21:14 Albumin 3.5 g/dL (3.5-5.2) 02/20/22 21:14 Globulin 4.2 g/dL (1.3-4.6) 02/20/22 21:14 Lipase 20 U/L (13-60) 02/20/22 21:14 Procalcitonin 0.04 ng/mL (0-0.5) 02/21/22 00:37 Influenza Type A Ag negative (Negative) 02/20/22 21:10 Influenza Type B Ag negative (Negative) 02/20/22 21:10 SARS-CoV-2 Ag (Rapid) negative (Negative) 02/20/22 21:10 Discharge Plan Discharge Patient Disposition: Admitted As Inpatient Admit Provider: Cristel Strange Clinical Impression: Acute exacerbation of chronic obstructive airways disease, Congestive heart failure, Acute respiratory failure with hypoxemia, Non-ST elevation OR (NSTEMI) Condition: Stable Discharge Diet: Cardiac Discharge Activity: Increase activity as tolerated and Oxygen as instructed Coding Level of Care Code ED Commercial Credit Specialist for g Fwd Exam Comprehensive Documented by User: Guicho Pitt MD 02/21/22 00:53 HPI - SOB/Dyspnea General: Chief Complaint: ER Hold Stated Complaint: chest pain SOB back pain Time Seen by Provider: 02/20/22 20:39 PFSH ED PFSH: Medical History Atrial fibrillation Atrial flutter CHF (congestive heart failure) COPD (chronic obstructive pulmonary disease) Edema leg Emphysema/COPD Fibromyalgia GERD (gastroesophageal reflux disease) History of coronary angiogram Hypertension Hypotension Nonischemic cardiomyopathy Ejection fraction 20% Osteoarthritis Rheumatoid arthritis Sinus tachycardia Tobacco dependency Surgical History AICD (automatic cardioverter/defibrillator) present H/O: hysterectomy S/P tonsillectomy Family History Father Cancer Mother Cancer Sister Cancer Other CAD (coronary artery disease) Hyperlipidemia Hypertension Lung disease Denies family history of Psychiatric illness Social History Smoking and tobacco status: current every day smoker cigarettes Packs smoked per day: 2 Years cigarettes smoked: 50 [ Other cigarette details: Started at age 10 years] Alcohol intake: never History of recent travel: No Course Vital Signs: Vital signs: Vital Signs Temperature 98.6 F 02/22/22 04:00 Pulse Rate 74 02/22/22 17:27 Respiratory Rate 20 H 02/22/22 17:27 Blood Pressure 151/95 02/22/22 17:27 Pulse Oximetry 94 02/22/22 17:27 Oxygen Delivery Me thod 02/22/22 15:00 Oxygen Flow Rate 2.5 02/22/22 15:00 MDM - SOB/Dyspnea Medical Decision Making Patient presents here with shortness of breath history of COPD CHF she does have wheezing here to get multiple treatments continue to have wheezing requiring [address] shows no signs of pulm rhythm I spoke to hospitalist will admit. Lab Data 02/20/22 21:14 02/20/22 21:14 Labs/Radiology: Radiology Impressions Chest X-Ray 02/20/22 20:48 IMPRESSION: 1. Cardiomegaly and pulmonary vascular congestion. 2. Bibasilar atelectasis versus minimal infiltrate. Chest CTA 02/20/22 21:50 IMPRESSION: 1. Negative for pulmonary embolus. 2. Scattered prominent mediastinal lymph nodes measuring up to 17 mm, nonspecific. 3. Small bilateral pleural effusions. 4. Main pulmonary artery is somewhat prominent which can be a finding of pulmonary artery hypertension. 5. Minimal coronary artery atherosclerotic calcifications. 6. Emphysematous changes. 7. Right hilar adenopathy measuring up to 2.8 cm, new compared to prior exam, nonspecific, however, is potentially concerning for underlying malignancy. 8. Patchy bilateral atelectasis versus infiltrate. Laboratory Results WBC 5.4 10^3/uL (4.0-10.0) 02/21/22 06:40 RBC 4.80 10^6/uL (4.1-5.3) 02/21/22 06:40 Hgb 14.4 g/dL (11.5-15.3) 02/21/22 06:40 Hct 44.5 % (37.0-47.0) 02/21/22 06:40 MCV 92.7 fl (81-99) 02/21/22 06:40 MCH 30.0 pg (28.0-34.0) 02/21/22 06:40 MCHC 32.4 g/dL (30.0-36.0) 02/21/22 06:40 RDW 12.4 % (12.1-15.1) 02/21/22 06:40 Plt Count 199 10^3/cmm (130-400) 02/21/22 06:40 MPV 11.4 fL (7.4-10.4) H 02/21/22 06:40 Neut % (Auto) 83.3 % 02/21/22 06:40 Lymph % (Auto) 15.4 % 02/21/22 06:40 [place] % (Auto) 0.9 % 02/21/22 06:40 Eos % (Auto) 0.0 % 02/21/22 06:40 Baso % (Auto) 0.2 % 02/21/22 06:40 Neut # (Auto) 4.49 10^3/uL (1.8-7.7) 02/21/22 06:40 Lymph # (Auto) 0.8 10^3/uL (0.8-4.8) 02/21/22 06:40 [place] # (Auto) 0.1 10^3/uL (0.2-0.9) L 02/21/22 06:40 Eos # (Auto) 0.0 10^3/uL (0.0-0.8) 02/21/22 06:40 Baso # (Auto) 0.0 10^3/uL (0.0-0.1) 02/21/22 06:40 Nucleated RBC % (auto) 0 % 02/21/22 06:40 Nucleated RBCs # 0.0 /100WBC 02/21/22 06:40 D-Dimer 18.36 ug/mIFEU (0-0.59) H 02/20/22 21:14 Sodium 135 mmol/L (136-145) L 02/21/22 05:43 Potassium 4.2 mmol/L (3.5-5.1) 02/21/22 05:43 Chloride 97 mmol/L (98-107) L 02/21/22 05:43 Carbon Dioxide 23 mmol/L (22-29) 02/21/22 05:43 Anion Gap 19.2 (5-19) H 02/21/22 05:43 BUN 14 mg/dL (8-23) 02/21/22 05:43 Creatinine 0.9 mg/dL (0.5-0.9) 02/21/22 05:43 GFR Calculation 63.0 mL/min (90-130) L 02/21/22 05:43 Glucose 190 mg/dL (65-115) H 02/21/22 05:43 Calculated Osmolality 286 mOsm/kg (285-295) 02/21/22 05:43 Lactic Acid 1.4 mmol/L (0.5-2.2) 02/20/22 21:14 Calcium 8.9 mg/dL (8.5-10.5) 02/21/22 05:43 Magnesium 1.9 mg/dL (1.7-2.3) 02/21/22 05:43 Total Bilirubin 0.3 mg/dL (0.15-1.2) 02/20/22 21:14 AST 18 U/L (0-32) 02/20/22 21:14 ALT 10 U/L (0-33) 02/20/22 21:14 Alkaline Phosphatase 167 U/L (35-105) H 02/20/22 21:14 Troponin T Baseline 14 ng/L (0-10) H 02/20/22 21:14 Troponin T 120 Minute 410.8 ng/L (0-10) H 02/21/22 00:37 Delta Troponin T 396.8 ABS# (0-10) H* 02/21/22 00:37 Troponin T Hi Sens 6Hr 688.1 ng/L (0-10) H 02/21/22 03:43 Troponin T Hi Sens 6Hr Delta 674.1 ng/L (0-12) H* 02/21/22 03:43 C-Reactive Protein 12.1 mg/L (0.0-4.9) H 02/21/22 05:43 NT-Pro-B Natriuret Pep 2236 pg/mL (0-125) H 02/20/22 21:14 Total Protein 7.7 g/dL (6.6-8.7) 02/20/22 21:14 Albumin 3.5 g/dL (3.5-5.2) 02/20/22 21:14 Globulin 4.2 g/dL (1.3-4.6) 02/20/22 21:14 Lipase 20 U/L (13-60) 02/20/22 21:14 Procalcitonin 0.04 ng/mL (0-0.5) 02/21/22 00:37 Influenza Type A Ag negative (Negative) 02/20/22 21:10 Influenza Type B Ag negative (Negative) 02/20/22 21:10 SARS-CoV-2 Ag (Rapid) negative (Negative) 02/20/22 21:10 Discharge Plan Discharge Patient Disposition: Admitted As Inpatient Admit Provider: Cristel Strange Clinical Impression: Acute exacerbation of chronic obstructive airways disease, Congestive heart failure, Acute respiratory failure with hypoxemia, Non-ST elevation OR (NSTEMI) Condition: Stable Discharge Diet: Cardiac Discharge Activity: Increase activity as tolerated and Oxygen as instructed Coding Level of Care Code ED Commercial Credit Specialist for Chg Fwd Exam Comprehensive
--- NOTE | 2022-02-20 20:47 | ECG_ITS ---
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 Measurements Intervals [place] Rate: 88 P: 33 TX: 164 QRS: 69 QRSD: 125 T: 160 QT: 368 QTc: 445 Interpretive Statements SINUS RHYTHM MODERATE INTRAVENTRICULAR CONDUCTION DELAY [105+ ms QRS DURATION, 80+ ms Q/S IN V1/V2, NO Q AND 60+ ms R IN I/aVL/V5/V6] NONSPECIFIC T-WAVE ABNORMALITY Compared to ECG 06/19/2021 09:47:56 Possible ischemia no longer present T-wave abnormality still present Electronically Signed On 02-21-2022 7:54:15 SKY CAP by Ayan Angulo M.D. [email or web address]
--- NOTE | 2022-02-20 20:48 | XRR_ITS ---
PROCEDURE INFORMATION: Exam: XR Chest Exam date and time: 02/20/2022 8:53 PM Age: 62 years old Clinical indication: Angina and shortness of breath; Additional info: mary BONILLA TECHNIQUE: Imaging protocol: Radiologic exam of the chest. Views: 1 view. COMPARISON: CR XR chest 2V* [id number] 02/14/2022 10:55 AM FINDINGS: Tubes, catheters and devices: Pacemaker. Lungs: Bibasilar atelectasis versus minimal infiltrate. Pleural spaces: Unremarkable. No pleural effusion. No pneumothorax. Heart/Mediastinum: Cardiomegaly and pulmonary vascular congestion. Bones/joints: Unremarkable. XR/XR chest 1V portable [id number] IMPRESSION: 1. Cardiomegaly and pulmonary vascular congestion. 2. Bibasilar atelectasis versus minimal infiltrate.
[2022-02-20 21:03] VITALS: PULSE 90; O2SAT 95
[2022-02-20] MEDS: ipratropium-albuterol 3 mL Neb INHALATION (21:06)
[2022-02-20 21:22] VITALS: PULSE 86; RESP 24; O2SAT 92
[2022-02-20 21:28] LABS: Basophils # 0.1 10^3/uL (0.0-0.1); Eosinophils # 0.2 10^3/uL (0.0-0.8); Eosinophils % 2.4 %; Hematocrit 44.1 % (37.0-47.0); Hemoglobin 14.3 g/dL (11.5-15.3); Lymphocytes # 1.8 10^3/uL (0.8-4.8); Lymphocytes % 21.7 %; Mean Corpuscular HGB Conc 32.4 g/dL (30.0-36.0); Mean Corpuscular Hemoglobin 30.2 pg (28.0-34.0); Mean Platelet Volume 11.3 fL (7.4-10.4); Monocytes # 0.7 10^3/uL (0.2-0.9); Neutrophils # 5.46 10^3/uL (1.8-7.7); Neutrophils % 66.8 %; Nucleated Red Blood Cells % 0 %; Platelet Count 195 10^3/cmm (130-400); Red Blood Count 4.74 10^6/uL (4.1-5.3); Red Cell Distribution Width 12.6 % (12.1-15.1); White Blood Count 8.2 10^3/uL (4.0-10.0)
[2022-02-20 21:45] LABS: Influenza A by IFA negative (Negative); Influenza B by IFA negative (Negative); SARS Covid-2 Antigen negative (Negative)
[2022-02-20 21:49] LABS: D Dimer 18.36 ug/mIFEU (0-0.59); Lactic Sepsis W/Reflex 1.4 mmol/L (0.5-2.2)
--- NOTE | 2022-02-20 21:50 | CTR_ITS ---
PROCEDURE INFORMATION: Exam: CTA Chest With Contrast Exam date and time: 02/21/2022 12:01 AM Age: 62 years old Clinical indication: Pain and abnormal findings; Abnormal diagnostic tests; Elevated d-dimer; Shortness of breath; Chest pressure; Prior surgery; Surgery type: Defibrillator; Patient HX: C/O chest pain with SOB. D dimer of 18. ; Additional info: SOB, cp, elevated ddimer TECHNIQUE: Imaging protocol: Computed tomographic angiography of the chest with contrast. 3D rendering (Not supervised by radiologist): MIP and/or 3D reconstructed images were created by the technologist. Radiation optimization: All CT scans at this facility use at least one of these dose optimization techniques: automated exposure control; mA and/or kV adjustment per patient size (includes targeted exams where dose is matched to clinical indication); or iterative reconstruction. Contrast material: OMNI 350; Contrast volume: 76 ml; Contrast route: INTRAVENOUS (IV); COMPARISON: CT angio chest PE protcl [id number] 12/26/2019 3:08 PM RADIATION DOSE METRICS: Total DLP (mGy-cm): 513.09 FINDINGS: Tubes, catheters and devices: Pacemaker. Pulmonary arteries: Main pulmonary artery is somewhat prominent which can be a finding of pulmonary artery hypertension. Aorta: Unremarkable. No aortic aneurysm. No aortic dissection. Lungs: Emphysematous changes. Patchy bilateral atelectasis versus infiltrate. Pleural spaces: Small bilateral pleural effusions. Heart: Unremarkable. No cardiomegaly. No pericardial effusion. Coronary arteries: Minimal coronary artery atherosclerotic calcifications. Lymph nodes: Scattered prominent mediastinal lymph nodes measuring up to 17 mm, nonspecific. Right hilar adenopathy measuring up to 2.8 cm, new compared to prior exam, nonspecific, however, is potentially concerning for underlying malignancy. Bones/joints: Unremarkable. No acute fracture. Soft tissues: Unremarkable. CT/CT angio chest PE protcl [id number] IMPRESSION: 1. Negative for pulmonary embolus. 2. Scattered prominent mediastinal lymph nodes measuring up to 17 mm, nonspecific. 3. Small bilateral pleural effusions. 4. Main pulmonary artery is somewhat prominent which can be a finding of pulmonary artery hypertension. 5. Minimal coronary artery atherosclerotic calcifications. 6. Emphysematous changes. 7. Right hilar adenopathy measuring up to 2.8 cm, new compared to prior exam, nonspecific, however, is potentially concerning for underlying malignancy. 8. Patchy bilateral atelectasis versus infiltrate.
[2022-02-20 21:59] LABS: Troponin(5th) Baseline 14 ng/L (0-10)
[2022-02-20 22:08] LABS: Alanine Aminotransferase 10 U/L (0-33); Albumin Level 3.5 g/dL (3.5-5.2); Alkaline Phosphatase 167 U/L (35-105); Anion Gap 14.9 (5-19); Aspartate Amino Transferase 18 U/L (0-32); Blood Urea Nitrogen 13 mg/dL (8-23); Calcium 9.2 mg/dL (8.5-10.5); Carbon Dioxide 26 mmol/L (22-29); Chloride 102 mmol/L (98-107); Globulin 4.2 g/dL (1.3-4.6); Glomerular Filtration Rate 55.8 mL/min (90-130); Glucose 122 mg/dL (65-115); Lipase 20 U/L (13-60); NT Pro B Type Natriuretic Pept 2236 pg/mL (0-125); Osmolality Calculated 287 mOsm/kg (285-295); Potassium 4.9 mmol/L (3.5-5.1); Sodium 138 mmol/L (136-145); Total Bilirubin 0.3 mg/dL (0.15-1.2); Total Protein 7.7 g/dL (6.6-8.7)
[2022-02-20] MEDS: FUROsemide 10 mg/mL SDV 4mL 40 MG IVP (22:24)
[2022-02-20] MEDS: diphenhydrAMINE 50 mg/mL SDV 1mL IVP (22:57)
[2022-02-20 23:01] VITALS: BP 171/110; PULSE 84; RESP 22; O2SAT 95
--- NOTE | 2022-02-20 23:08 | ECG_ITS ---
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 Measurements Intervals [place] Rate: 81 P: 24 [place]: 169 QRS: 56 QRSD: 120 T: -65 QT: 388 QTc: 453 Interpretive Statements SINUS RHYTHM POSSIBLE LEFT ATRIAL ENLARGEMENT [-0.1mV P-WAVE IN V1/V2] MODERATE INTRAVENTRICULAR CONDUCTION DELAY [105+ ms QRS DURATION, 80+ ms Q/S IN V1/V2, NO Q AND 60+ ms R IN I/aVL/V5/V6] ST DEVIATION AND MODERATE T-WAVE ABNORMALITY, CONSIDER INFERIOR ISCHEMIA [-0.1+ mV T-WAVE IN II/aVF] Compared to ECG 02/20/2022 20:47:58 Possible ischemia now present T-wave abnormality still present Electronically Signed On 02-21-2022 7:56:03 IUSS ACOUSTIC ANALYST by Ayan Angulo M.D. [id number]
[2022-02-21] VITALS (68 sets, daily range): BP systolic 110–173; BP diastolic 58–135; PULSE 67–88; RESP 14–43; TEMP 36.9; O2SAT 88–99; BMI 35.4
[2022-02-21] MEDS: iohexol 350 mg/mL 500 mL Btl (per mL) IV (00:13)
[2022-02-21] MEDS: albuterol 2.5 mg/3 mL Neb INHALATION (00:36)
[2022-02-21 01:11] LABS: Troponin 5 2HR Delta 396.8 ABS# (0-10)
[2022-02-21 01:12] LABS: Troponin 5 2HR 410.8 ng/L (0-10)
--- NOTE | 2022-02-21 01:14 | ECG_ITS ---
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 Measurements Intervals [place] Rate: 78 P: 25 [place]: 171 QRS: 61 QRSD: 119 T: 232 QT: 402 QTc: 460 Interpretive Statements SINUS RHYTHM POSSIBLE LEFT ATRIAL ENLARGEMENT [-0.1mV P-WAVE IN V1/V2] MODERATE INTRAVENTRICULAR CONDUCTION DELAY [105+ ms QRS DURATION, 80+ ms Q/S IN V1/V2, NO Q AND 60+ ms R IN I/aVL/V5/V6] ST DEVIATION AND MODERATE T-WAVE ABNORMALITY, CONSIDER LATERAL ISCHEMIA [-0.1+ mV T-WAVE IN I/aVL/V5/V6] ST DEVIATION AND MODERATE T-WAVE ABNORMALITY, CONSIDER INFERIOR ISCHEMIA [-0.1+ mV T-WAVE IN II/aVF] Compared to ECG 02/20/2022 23:08:36 No significant changes Electronically Signed On 02-21-2022 15:38:42 MAID HOUSEKEEPER by Dangelo Florez M.D. [id number] f
[2022-02-21] MEDS: cefTRIAXone 1,000 MG in sodium chloride 0.9% (plus) 50 ML 100 MG IV (02:00)
[2022-02-21] MEDS: enoxaparin 100 mg/mL Syringe SUBCUT ×2 (02:02→14:27)
--- NOTE | 2022-02-21 02:31 | P.HP_ITS ---
Providers/Chief Complaint Primary Care Provider: Saman Florez NP Chief Complaint: chest pain SOB back pain History of Present Illness Shana Roy is a 62 year old female with history of reduced ejection fraction heart failure status post AICD placement EF 20%, nonischemic cardiomyopathy, active smoker, uses 2 L of oxygen at home, oxygen pendant COPD, presented today with chief complaint of worsening of shortness of breath. Patient is stating that for the last few days she has been experiencing orthopnea, PND, weight gain, hot flashes, night sweats, hemoptysis. Today she started experiencing chest pain which she describing as pressure and heaviness left side of her chest, it was not associated with nausea or vomiting, it is radiating towards her left arm and going towards her back moderate intensity, no significant exacerbating or alleviating factors. She has not noticed recent fever, viral/cold like symptoms. Patient is stating that because of her cold weather her arthritis was getting worse that made her very sick. But her main concern is chest pain that prompted her visit to the ER. In the ER she has been diagnosed with NSTEMI Troponin trending up, she is hypertensive diastolic blood pressures 115 Active wheezing Acute CHF exacerbation D-dimer extremely high CTA chest showing 2.8 cm right hilar adenopathy which is new, she is an active smoker smokes half a pack a day no signs of PE showing small bilateral pleural effusion multiple lymph nodes Troponin trending up, viral panel negative, EKG showing T wave inversions anterolateral leads, Review of Systems Const: Reports: chills, body aches, change in weight and night sweats Eyes: Denies: change in vision ENMT: Denies: throat pain Card: Reports: chest pain, swelling of feet/ankles, lightheadedness, dyspnea on exertion and orthopnea Resp: Reports: dyspnea and hemoptysis GI: Denies: abdominal pain : Denies: flank pain Musc: Denies: neck pain Skin/Breast: Denies: rash Neuro: Denies: headache(s) Psych: Reports: anxiety Endo: Denies: polyuria Carlos/Lymph: Denies: easy bruising All/Imm: Denies: urticaria Medications/Allergies Home Medications Medication Instructions Recorded Confirmed Last Taken Type albuterol sulfate 90 mcg/actuation 2 puff inhalation Q6H PRN 09/19/19 02/11/22 06/24/21 History aerosol inhaler shortness of breath diclofenac sodium 1 % topical gel 4 g topical QID PRN Pain 11/11/19 02/11/22 Unknown History gabapentin 400 mg capsule 400 mg PO TID PRN unknown 11/14/19 02/11/22 06/18/21 History albuterol sulfate 2.5 mg/3 mL 2.5 mg inhalation Q6H PRN unknown 12/26/19 02/11/22 06/24/21 History (0.083 %) solution for nebulization hydroxychloroquine 200 mg tablet 200 mg PO BID #60 tabs 02/18/21 02/11/22 06/18/21 Rx prednisone 5 mg tablet 5 mg PO DAILY PRN flares #30 tabs 02/18/21 02/11/22 Unknown Rx aspirin 81 mg chewable tablet 81 mg PO DAILY 02/24/21 02/11/22 06/18/21 History metolazone 2.5 mg tablet 2.5 mg PO DAILY PRN weight gain 03/21/21 02/11/22 06/23/21 Rx #30 tabs amiodarone 400 mg tablet 400 mg PO DAILY #90 tabs 03/26/21 02/11/22 06/19/21 Rx apixaban 5 mg tablet (Eliquis) 5 mg PO BID #180 tabs 03/26/21 02/11/22 06/18/21 Rx furosemide 40 mg tablet 40 mg PO BID #180 tabs 03/26/21 02/11/22 06/23/21 Rx metoprolol succinate 100 mg 100 mg PO DAILY #90 tabs 03/26/21 02/11/22 06/25/21 09:00 Rx tablet,extended release 24 hr prenat.vits,rain,nrd-msvb-ayecr 1 tab PO DAILY 03/26/21 02/11/22 Unknown History fluticasone fur. 100 mcg-umeclid 1 inh inhalation DAILY 30 days #60 05/21/21 02/11/22 06/23/21 Rx 62.5 mcg-vilant 25 mcg ea inhalat.powder (Trelegy Ellipta) losartan 25 mg tablet 25 mg PO QNOON 06/19/21 02/11/22 06/25/21 History hydrocodone 5 mg-acetaminophen 325 1 tab PO Q6H PRN Moderate Pain #16 06/26/21 02/11/22 Unknown Rx mg tablet tabs etanercept 50 mg/mL (1 mL) 50 mg SUBCUT .qweek #4 mL 09/03/21 02/11/22 Unknown Rx subcutaneous syringe (Enbrel) fluticasone propionate 50 1 spray intranasal BID #18 mL 12/20/21 02/11/22 Unknown Rx mcg/actuation nasal spray,suspension (Flonase Allergy Relief) folic acid 1 mg tablet 1 mg PO DAILY 12/20/21 02/11/22 Unknown History levalbuterol tartrate 45 2 inh inhalation Q6H shortness of 12/20/21 02/11/22 Unknown History mcg/actuation aerosol inhaler breath/wheezing (Xopenex HFA) levofloxacin 500 mg tablet 500 mg PO DAILY #5 tabs 12/20/21 02/11/22 Unknown Rx metoprolol succinate 25 mg 25 mg PO DAILY take along with 12/20/21 02/11/22 Unknown History tablet,extended release 24 hr 100mg tab every day ondansetron HCl 4 mg tablet 4 mg PO Q8H PRN nausea and vomiting 12/20/21 02/11/22 Unknown History potassium chloride 20 mEq 30 meq PO DAILY 12/20/21 02/11/22 Unknown History tablet,extended release meloxicam 15 mg tablet 15 mg PO DAILY #20 tabs 01/28/22 02/11/22 Unknown Rx Allergies Allergy/AdvReac Type Severity Reaction Status Date / Time dronedarone Allergy Severe rash, Verified 02/11/22 08:58 swelling doxacurium Allergy HIVES,RASH Verified 02/11/22 08:58 sulfamethoxazole Allergy ALGY-Rash Verified 02/11/22 08:58 [From Bactrim] trimethoprim [From Bactrim] Allergy ALGY-Rash Verified 02/11/22 08:58 PFSH Acute PFSH: Medical History Atrial fibrillation Atrial flutter CHF (congestive heart failure) COPD (chronic obstructive pulmonary disease) Edema leg Emphysema/COPD Fibromyalgia GERD (gastroesophageal reflux disease) History of coronary angiogram Hypertension Hypotension Nonischemic cardiomyopathy Ejection fraction 20% Osteoarthritis Rheumatoid arthritis Sinus tachycardia Tobacco dependency Surgical History AICD (automatic cardioverter/defibrillator) present H/O: hysterectomy S/P tonsillectomy Family History Father Cancer Mother Cancer Sister Cancer Other CAD (coronary artery disease) Hyperlipidemia Hypertension Lung disease Denies family history of Psychiatric illness Social History Smoking and tobacco status: current every day smoker cigarettes Packs smoked per day: 2 Years cigarettes smoked: 50 [ Other cigarette details: Started at age 10 years] Alcohol intake: never History of recent travel: No Vitals/I&O/Wt Last Vital Signs Temp 97.7 F 02/20/22 20:38 Pulse 83 02/21/22 02:08 Resp 21 H 02/21/22 02:08 BP 158/104 02/21/22 02:08 Pulse Ox 93 02/21/22 02:08 O2 Del Method 02/21/22 02:08 Weight last 48 hrs Weight 97.522 kg Physical Exam Narrative: Patient is currently on 2 L of oxygen Experiencing orthopnea and PND Clinical signs of fluid overload Awake and alert Pleasant cooperative Cardiac wheezing positive Abdomen distended Lower extremity 2+ pitting edema Variable S1-S2 Nonfocal neuro exam No sign of cellulitis Patient was sitting at the bedside when I entered the room Data 02/20/22 21:14 02/20/22 21:14 Micro: Microbiology 02/20/22 21:16 Blood Culture - Preliminary Blood SPECIMEN COLLECTED 02/20/22 21:14 Blood Culture - Preliminary Blood SPECIMEN COLLECTED A&P Assessment and plan (1) Acute exacerbation of chronic obstructive airways disease: (2) Congestive heart failure: (3) Acute respiratory failure with hypoxemia: (4) Non-ST elevation CA (NSTEMI): (5) AICD (automatic cardioverter/defibrillator) present: (6) Obstructive sleep apnea: (7) Chronic hypoxemic respiratory failure: (8) Nonischemic cardiomyopathy: Plan NSTEMI No active chest pain Troponin trending up T wave version/biphasic T waves anterolaterally EF 20% No active chest pain Patient is hypertensive Patient has been started on ACS protocol Hold Eliquis Please consult cardiology in the morning Hypertensive emergency Significant troponin leak Optimize antihypertensive regimen A. fib without RVR Continue AV cristobal blocking agents, Eliquis on hold Acute CHF exacerbation systolic EF 20% Continue diuresis Cardiac wheezing, Active smoker. Could be a component of COPD and cardiac wheezing Significant high D-dimer, underlying lung malignancy not ruled out, she is endorsing night sweats, hemoptysis Smokes half a pack a day Full code Cardiac diet DVT prophylaxis: With therapeutic Lovenox Attestations Medical Necessity Statement*: Anticipating more than 2 midnights for management of NSTEMI Time Spent in Patient Care: 40 Coding Level of Care Code Acute Computerized Table Cutter for g Fwd Diagnoses Acute exacerbation of chronic obstructive airways disease J44.1 Congestive heart failure I50.9 Acute respiratory failure with hypoxemia J96.01 Non-ST elevation CA (NSTEMI) I21.4 AICD (automatic cardioverter/defibrillator) present Z95.810 Obstructive sleep apnea G47.33 Chronic hypoxemic respiratory failure J96.11 Nonischemic cardiomyopathy I42.8
--- NOTE | 2022-02-21 02:49 | ECG_ITS ---
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 Measurements Intervals [place] Rate: 80 P: 27 [place]: 171 QRS: 70 QRSD: 117 T: 231 QT: 410 QTc: 473 Interpretive Statements SINUS RHYTHM MODERATE INTRAVENTRICULAR CONDUCTION DELAY [105+ ms QRS DURATION, 80+ ms Q/S IN V1/V2, NO Q AND 60+ ms R IN I/aVL/V5/V6] ST DEVIATION AND MODERATE T-WAVE ABNORMALITY, CONSIDER LATERAL ISCHEMIA [-0.1+ mV T-WAVE IN I/aVL/V5/V6] ST DEVIATION AND MODERATE T-WAVE ABNORMALITY, CONSIDER INFERIOR ISCHEMIA [-0.1+ mV T-WAVE IN II/aVF] Compared to ECG 02/20/2022 23:08:36 No significant changes Electronically Signed On 02-21-2022 15:42:53 AUXILIARY EQUIPMENT TENDER by Dangelo Florez M.D. [id number]
[2022-02-21] MEDS: azithromycin 500 MG in sodium chloride 0.9% 250 ML 250 MG IV (03:01)
[2022-02-21 04:27] LABS: Troponin 5 6HR Delta 674.1 ng/L (0-12)
[2022-02-21 04:28] LABS: Troponin 5 6HR 688.1 ng/L (0-10)
--- NOTE | 2022-02-21 04:44 | USCV_ITS ---
Shana Roy Age: 62 Gender: F : 1960 Exam Date: 02/21/2022 05:46 Ordering Phys: Cristel Strange MD Technologist: PRISCILLA Exam Location: [facility] [place] Indication: NSTEMI BP: 163 / 106 HR: 76 Rhythm: Sinus Technical Quality: Adequate MEASUREMENTS (Male / Female) Normal Values 2D ECHO LV Diastolic Diameter PLAX 7.0 cm 4.2 - 5.9 / 3.9 - 5.3 cm LV Systolic Diameter PLAX 6.7 cm IVS Diastolic Thickness 1.0 cm 0.6 - 1.0 / 0.6 - 0.9 cm IVS Systolic Thickness 1.0 cm LVPW Diastolic Thickness 0.7 cm 0.6 - 1.0 / 0.6 - 0.9 cm LVPW Systolic Thickness 1.1 cm LVOT Diameter 2.6 cm LV Ejection Fraction 2D Teich 8.5 % LV Ejection Fraction MOD 2C 20.7 % LV Ejection Fraction 2C AL 18.5 % LA Diameter 4.9 cm IVC Diameter 1.1 cm M-MODE Aortic Annulus Diameter 3.1 cm LA Ao Ratio MM 1.7 MV E Point Septal Separation 2.2 cm DOPPLER AV Peak Velocity 104.0 cm/s LVOT Peak Velocity 56.0 cm/s AV Area Cont Eq vti 3.2 cm squared AV Area Cont Eq pk 3.0 cm squared MV Area PHT 5.0 cm squared Mitral E to A Ratio 1.3 MV E' Velocity 63.0 cm/s Mitral E to MV E' Ratio 24.4 Mitral E to LV E' Lateral Ratio 20.0 Mitral E to LV E' Septal Ratio 31.5 TV Peak E Velocity 51.0 cm/s PV Peak Velocity 68.0 cm/s FINDINGS Left Ventricle Severely increased left ventricular cavity size. Severely decreased left ventricular systolic function. Left ventricular ejection fraction is estimated at 25 %. Severe global left ventricular hypokinesis. Grade II diastolic dysfunction, moderately elevated filling pressures. Right Ventricle Normal right ventricular size and systolic function. RVSP could not be calculated due to incomplete tricuspid regurgitation velocity profile. Right Atrium Normal right atrial size. Left Atrium Moderately increased left atrial size. Mitral Valve Structurally normal mitral valve. No mitral valve stenosis. Mild mitral valve regurgitation. Aortic Valve Structurally normal trileaflet aortic valve. No aortic valve stenosis. No aortic valve regurgitation. Tricuspid Valve Structurally normal tricuspid valve. Trace tricuspid valve regurgitation. Pulmonic Valve Structurally normal pulmonic valve. No pulmonary valve stenosis. No pulmonary valve regurgitation. Pericardium No pericardial effusion. Aorta Normal size aortic root and proximal ascending aorta. IVC Normal IVC dimension with >50% respiratory change of the inferior vena cava. CONCLUSIONS 1. Severely dilated left ventricular cavity size. Severely decreased left ventricular systolic function. Left ventricular ejection fraction is estimated at 25 %. Severe global left ventricular hypokinesis. Grade II diastolic dysfunction, moderately elevated filling pressures. 2. Mild mitral valve regurgitation. 3. No change when compared to study dated 02/24/2021. Kayla Olivera MD (Electronically Signed) Final Date: 21 February 2022 09:09 S
[2022-02-21 04:45] LABS: Procalcitonin 0.04 ng/mL (0-0.5)
[2022-02-21] MEDS: aspirin 325 mg EC Tablet PO (05:14)
[2022-02-21] MEDS: clopidogrel 300 mg Tablet PO (05:14)
[2022-02-21 06:48] LABS: Basophils % 0.2 %; Hematocrit 44.5 % (37.0-47.0); Hemoglobin 14.4 g/dL (11.5-15.3); Lymphocytes # 0.8 10^3/uL (0.8-4.8); Lymphocytes % 15.4 %; Mean Corpuscular HGB Conc 32.4 g/dL (30.0-36.0); Mean Corpuscular Volume 92.7 fl (81-99); Mean Platelet Volume 11.4 fL (7.4-10.4); Monocytes # 0.1 10^3/uL (0.2-0.9); Monocytes % 0.9 %; Neutrophils # 4.49 10^3/uL (1.8-7.7); Neutrophils % 83.3 %; Nucleated Red Blood Cells % 0 %; Platelet Count 199 10^3/cmm (130-400); Red Cell Distribution Width 12.4 % (12.1-15.1); White Blood Count 5.4 10^3/uL (4.0-10.0)
[2022-02-21 06:55] LABS: Blood Urea Nitrogen 14 mg/dL (8-23); Calcium 8.9 mg/dL (8.5-10.5); Carbon Dioxide 23 mmol/L (22-29); Chloride 97 mmol/L (98-107); Glucose 190 mg/dL (65-115); Osmolality Calculated 286 mOsm/kg (285-295); Sodium 135 mmol/L (136-145)
[2022-02-21 06:57] LABS: Anion Gap 19.2 (5-19); Potassium 4.2 mmol/L (3.5-5.1)
[2022-02-21 07:07] LABS: C Reactive Protein 12.1 mg/L (0.0-4.9); Magnesium 1.9 mg/dL (1.7-2.3)
[2022-02-21] MEDS: hyDRALAzine 25 mg Tablet PO ×3 (07:14→18:30)
[2022-02-21] MEDS: losartan 50 mg Tablet 25 MG PO ×2 (07:14→14:27)
[2022-02-21] MEDS: budesonide 0.5 mg/2 mL Neb INHALATION ×2 (08:36→23:19)
[2022-02-21] MEDS: ipratropium-albuterol 3 mL Neb INHALATION ×4 (08:36→23:19)
[2022-02-21] MEDS: potassium chloride ER 20 mEq Tablet PO (09:01)
[2022-02-21] MEDS: metoprolol succinate ER (24 HR) 25 mg Tablet PO (09:02)
[2022-02-21] MEDS: amiodarone 200 mg Tablet 400 MG PO (09:02)
[2022-02-21] MEDS: aspirin 81 mg Chew Tablet PO (09:02)
[2022-02-21] MEDS: sennosides-docusate Tablet 1 TAB PO (09:02)
[2022-02-21] MEDS: FUROsemide 40 mg Tablet PO ×2 (09:02→18:30)
[2022-02-21] MEDS: clopidogrel 75 mg Tablet PO (09:03)
[2022-02-21] MEDS: isosorbide mononitrate 20 mg Tablet PO (09:10)
--- NOTE | 2022-02-21 10:52 | P.PN_ITS ---
Subjective Subjective: Shana reports she has no chest discomfort now. I reviewed her history and she reports she had significant heaviness in her chest, for approximately 2 hours before it eventually went away. She does relate that she occasionally coughs up blood, as noted in her history and physical. She had recently experienced cough shortness of breath wheezing as well. She was worried she had a viral infection earlier in the week. Medications: Reviewed: Yes Vitals/I&O/Wt Last Vital Signs Temp 97.7 F 02/20/22 20:38 Pulse 76 02/21/22 08:41 Resp 18 02/21/22 08:39 BP 164/115 02/21/22 06:00 Pulse Ox 94 02/21/22 08:39 O2 Del Method 02/21/22 08:39 O2 Flow Rate 2 02/21/22 08:39 02/20/22 02/21/22 02/21/22 22:59 06:59 14:59 Intake Total 50 / 50 Balance 50 / 50 Weight last 48 hrs Weight 97.522 kg Physical Exam Narrative: General exam demonstrates a conversive female, in no distress Neck supple Cardiovascular regular rate and rhythm, heart sounds distant, no murmur Lungs diminished breath sounds at the bases but no wheezes Abdomen is soft, positive bowel sounds Extremities trace to 1+ edema bilaterally. No cyanosis or clubbing Skin no rash Data 02/21/22 06:40 02/21/22 05:43 Micro: Microbiology 02/20/22 21:16 Blood Culture - Preliminary Blood SPECIMEN COLLECTED 02/20/22 21:14 Blood Culture - Preliminary Blood SPECIMEN COLLECTED A&P Assessment and plan (1) Non-ST elevation MN (NSTEMI): Significant troponin elevation from baseline She received Plavix load, and full dose anticoagulation Last angiogram was then 2019, and did not have any flow-limiting lesions at that time. Continue full anticoagulation, Plavix, aspirin Cardiology consultation. I suggest checking her defibrillator to make sure no arrhythmia was occurring at the time she was having discomfort. Note that she has previously been diagnosed with a nonischemic cardiomyopathy with an EF of 25%. (2) Congestive heart failure: Patient presented with acute systolic heart failure. She got some IV Lasix in the emergency department and her p.o. Lasix has been ordered. Currently she is much better compensated, lungs are relatively clear, and she is on 2 L of oxygen which is her baseline. (3) Acute exacerbation of chronic obstructive airways disease: Placed on IV steroids Pulmonary toilet (4) Pneumonia: Continue IV antibiotics consisting of azithromycin and ceftriaxone. Patchy infiltrate noted on x-ray. Rapid COVID and flu were negative (5) Atrial fibrillation with controlled ventricular response: Continue home medications Note that she was anticoagulated with Eliquis. This has been changed to Lovenox Note that she has a defibrillator Continue amiodarone Plan Enlarged mediastinal lymph node. Patient complains of occasional hemoptysis. 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 Henao Multiple other medical problems as outlined in past medical history Full code Lovenox will suffice for DVT prophylaxis Attestations Medical Necessity Statement*: Needs continued hospitalization secondary to non-ST elevation myocardial infarction. Coding Level of Care Code Acute Hoop Maker for [facility] Diagnoses Non-ST elevation [place] (NSTEMI) I21.4 Congestive heart failure I50.9 Acute exacerbation of chronic obstructive airways disease J44.1 Pneumonia J18.9 Atrial fibrillation with controlled ventricular response I48.91
--- NOTE | 2022-02-21 16:09 | PC.NURSE ---
There was a metoprolol tartrate on the APR to be given in the ER at 1124 but when patient arrived on the unit that afternoon, medication was not given. Nurse marked medication not given.
--- NOTE | 2022-02-21 16:15 | P.CONIM_ITS ---
Providers/Reason For Consult Consulting Physician/Specialty*: Dr. 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 She was admitted with chest pain. CP described as heaviness on left side of her chest described as someone sitting on her chest radiating towards her left arm and back that lasted for about 30-40 min . + recent fever, viral/cold like symptoms. She also complains of orthopnea, PND, weight gain, hot flashes, night sweats, hemoptysis.?She had another episode of chest pain yesterday morning that lasted for 10 min. Patient ran out of her Eliquis and has not taken it for 1 month. Admited to being compliant with amiodarone. Review of Systems Const: Reports: chills, body aches, change in weight and night sweats Eyes: Denies: change in vision ENMT: Denies: throat pain Card: Reports: chest pain, swelling of feet/ankles, lightheadedness, dyspnea on exertion and orthopnea Resp: Reports: dyspnea and hemoptysis GI: Denies: abdominal pain, hematemesis, hematochezia or melena : Denies: flank pain or hematuria Musc: Denies: neck pain Skin/Breast: Denies: rash Neuro: Denies: headache(s) Psych: Reports: anxiety Endo: Denies: polyuria Carlos/Lymph: Denies: easy bruising All/Imm: Denies: urticaria Medications/Allergies Home Medications Medication Instructions Recorded Confirmed Last Taken Type albuterol sulfate 90 mcg/actuation 2 puff inhalation Q6H PRN 09/19/19 02/21/22 06/24/21 History aerosol inhaler shortness of breath gabapentin 400 mg capsule 400 mg PO TID PRN unknown 11/14/19 02/21/22 06/18/21 History albuterol sulfate 2.5 mg/3 mL 2.5 mg inhalation Q6H PRN unknown 12/26/19 02/21/22 06/24/21 History (0.083 %) solution for nebulization hydroxychloroquine 200 mg tablet 200 mg PO BID #60 tabs 02/18/21 02/21/22 06/18/21 Rx prednisone 5 mg tablet 5 mg PO DAILY PRN flares #30 tabs 02/18/21 02/21/22 Unknown Rx aspirin 81 mg chewable tablet 81 mg PO DAILY 02/24/21 02/21/22 06/18/21 History metolazone 2.5 mg tablet 2.5 mg PO DAILY PRN weight gain 03/21/21 02/21/22 06/23/21 Rx #30 tabs amiodarone 400 mg tablet 400 mg PO DAILY #90 tabs 03/26/21 02/21/22 06/19/21 Rx furosemide 40 mg tablet 40 mg PO BID #180 tabs 03/26/21 02/21/22 06/23/21 Rx metoprolol succinate 100 mg 100 mg PO DAILY #90 tabs 03/26/21 02/21/22 06/25/21 09:00 Rx tablet,extended release 24 hr prenat.vits,rain,[id number]-jbzo-pqbem 1 tab PO DAILY 03/26/21 02/21/22 Unknown History fluticasone fur. 100 mcg-umeclid 1 inh inhalation DAILY 30 days #60 05/21/21 02/21/22 06/23/21 Rx 62.5 mcg-vilant 25 mcg ea inhalat.powder (Trelegy Ellipta) losartan 25 mg tablet 25 mg PO QNOON 06/19/21 02/21/22 06/25/21 History etanercept 50 mg/mL (1 mL) 50 mg SUBCUT .qweek #4 mL 09/03/21 02/21/22 01/27/22 Rx subcutaneous syringe (Enbrel) fluticasone propionate 50 1 spray intranasal BID #18 mL 12/20/21 02/21/22 Unknown Rx mcg/actuation nasal spray,suspension (Flonase Allergy Relief) levalbuterol tartrate 45 2 inh inhalation Q6H shortness of 12/20/21 02/21/22 Unknown History mcg/actuation aerosol inhaler breath/wheezing (Xopenex HFA) metoprolol succinate 25 mg 25 mg PO DAILY take along with 12/20/21 02/21/22 Unknown History tablet,extended release 24 hr 100mg tab every day ondansetron HCl 4 mg tablet 4 mg PO Q8H PRN nausea and vomiting 12/20/2102/21 Unknown History potassium chloride 20 mEq 30 meq PO DAILY 12/20/21 02/21/22 Unknown History tablet,extended release Allergies Allergy/AdvReac Type Severity Reaction Status Date / Time dronedarone Allergy Severe rash, Verified 02/21/22 08:17 swelling doxacurium Allergy HIVES,RASH Verified 02/21/22 08:17 sulfamethoxazole Allergy ALGY-Rash Verified 02/21/22 08:17 [From Bactrim] trimethoprim [From Bactrim] Allergy ALGY-Rash Verified 02/21/22 08:17 Current Medications Generic Name Dose Route Start Last Admin Trade Name Freq PRN Reason Stop Dose Admin Albuterol/Ipratropium 3 ml 02/21/22 08:00 02/21/22 15:19 Ipratropium-Albuterol 3 Ml Neb INHALATION 3 ml QID.RESPIRATORY RUSSELL Administration Amiodarone HCl 400 mg 02/21/22 09:00 02/21/22 09:02 Amiodarone 200 Mg Tablet PO 400 mg DAILY RUSSELL Administration Aspirin 81 mg 02/21/22 09:00 02/21/22 09:02 Aspirin 81 Mg Chew Tablet PO 81 mg DAILY RUSSELL Administration Budesonide 0.5 mg 02/21/22 08:00 02/21/22 08:36 Budesonide 0.5 Mg/2 Ml Neb INHALATION 0.5 mg BID.RESPIRATORY RUSSELL Administration Clopidogrel Bisulfate 75 mg 02/21/22 09:00 02/21/22 09:03 Clopidogrel 75 Mg Tablet PO 75 mg DAILY RUSSELL Administration Enoxaparin Sodium 100 mg 02/21/22 14:00 02/21/22 14:27 Enoxaparin 100 Mg/Ml Syringe 1 mg/kg (100 mg) 100 mg SUBCUT Administration Q12H RUSSELL Furosemide 40 mg 02/21/22 09:00 02/21/22 09:02 Furosemide 40 Mg Tablet PO 40 mg BID RUSSELL Administration Hydralazine HCl 25 mg 02/21/22 06:40 02/21/22 09:04 Hydralazine 25 Mg Tablet PO 25 mg BID RUSSELL Administration Isosorbide Mononitrate 20 mg 02/21/22 09:00 02/21/22 09:10 Isosorbide Mononitrate 20 Mg Tablet PO 20 mg DAILY RUSSELL Administration Levalbuterol HCl 1.25 mg 02/21/22 08:00 02/21/22 15:19 Levalbuterol 1.25 Mg/3 Ml Neb INHALATION Not Given QID.RESPIRATORY RUSSELL Losartan Potassium 25 mg 02/21/22 06:45 02/21/22 12:14 Losartan 50 Mg Tablet PO Not Given DAILY RUSSELL Losartan Potassium 25 mg 02/21/22 12:00 02/21/22 14:27 Losartan 50 Mg Tablet PO 25 mg 1200 RUSSELL Administration Methylprednisolone Sodium Succinate 40 mg 02/21/22 11:00 02/21/22 11:25 Methylprednisolone Sod Succ 40 Mg/Ml Inj IVP 40 mg Q12H RUSSELL Administration Metoprolol Succinate 25 mg 02/21/22 09:00 02/21/22 09:02 Metoprolol Succinate Er (24 Hr) 25 Mg Tablet PO 25 mg DAILY RUSSELL Administration Potassium Chloride 20 meq 02/21/22 09:00 02/21/22 09:01 Potassium Chloride Er 20 Meq Tablet PO 20 meq DAILY RUSSELL Administration Senna/Docusate Sodium 1 tab 02/21/22 09:00 02/21/22 09:02 Sennosides-Docusate Tablet PO 1 tab DAILY RUSSELL Administration PFSH Acute PFSH: Medical History (Updated 02/21/22 @ 16:39 by Kayla Olivera MD) Atrial fibrillation Atrial flutter CHF (congestive heart failure) COPD (chronic obstructive pulmonary disease) Edema leg Emphysema/COPD Fibromyalgia GERD (gastroesophageal reflux disease) History of coronary angiogram Hypertension Hypotension Nonischemic cardiomyopathy Ejection fraction 20% Osteoarthritis Rheumatoid arthritis Sinus tachycardia Tobacco dependency Surgical History AICD (automatic cardioverter/defibrillator) present H/O: hysterectomy S/P tonsillectomy Family History Father Cancer Mother Cancer Sister Cancer Other CAD (coronary artery disease) Hyperlipidemia Hypertension Lung disease Denies family history of Psychiatric illness Social History Smoking and tobacco status: current every day smoker cigarettes Packs smoked per day: 2 Years cigarettes smoked: 50 [ Other cigarette details: Started at age 10 years] Alcohol intake: never History of recent travel: No Vitals/I&O/Wt Last Vital Signs Temp 97.7 F 02/20/22 20:38 Pulse 70 02/21/22 15:21 Resp 16 02/21/22 15:20 BP 125/77 02/21/22 14:54 Pulse Ox 94 02/21/22 15:20 O2 Del Method 02/21/22 15:52 O2 Flow Rate 2 02/21/22 15:20 02/21/22 02/21/22 02/21/22 06:59 14:59 22:59 Intake Total 50 / 50 Balance 50 / 50 Weight last 48 hrs Weight 219 lb 9 oz Weight 215 lb Physical Exam Narrative: GENERAL: obese woman laying in bed in no acute distress HEENT: Extraocular movement intact. No pallor or icterus. NECK: central trachea, No JVD, No carotid bruit. CARDIOVASCULAR SYSTEM: S1-S2 regular. No S3 or S4 present. No murmur rubs or gallops. RESPIRATORY SYSTEM: Chest clear to auscultation. + intermittent wheezes , No rhonchi or rubs heard. No use of accessory muscles. ABDOMEN: Soft, nontender and nondistended. Normal bowel sounds present. EXTREMITIES: No cyanosis or edema. No signs of chronic venous insufficiency. AGRICULTURAL ADVISER: Patient is alert oriented ?3. No focal neurological deficits. SKIN: Normal turgor and temperature. PSYCH: Normal insight and judgment. Data 02/21/22 06:40 02/21/22 05:43 Other Labs: Baseline troponin T 14--> 411--> 688. NT pro BNP 2236. Influenza A & B -ve, SARS- CoV 2 Ag negative Micro: Microbiology 02/20/22 21:16 Blood Culture - Preliminary Blood SPECIMEN COLLECTED 02/20/22 21:14 Blood Culture - Preliminary Blood SPECIMEN COLLECTED Other data: TTE (02/21/22) CONCLUSIONS ?1. Severely dilated left ventricular cavity size. Severely ?decreased left ventricular systolic function. Left ventricular ?ejection fraction is estimated at 25 %. Severe global left ?ventricular hypokinesis. Grade II diastolic dysfunction, ?moderately elevated filling pressures. ?2. Mild mitral valve regurgitation. ?3. No change when compared to study dated 02/24/2021. Chest CTA? 02/20/22 IMPRESSION: 1. Negative for pulmonary embolus. 2. Scattered prominent mediastinal lymph nodes measuring up to 17 mm, nonspecific. 3. Small bilateral pleural effusions. 4. Main pulmonary artery is somewhat prominent which can be a finding of pulmonary artery hypertension. 5. Minimal coronary artery atherosclerotic calcifications. 6. Emphysematous changes. 7. Right hilar adenopathy measuring up to 2.8 cm, new compared to prior exam, nonspecific, however, is potentially concerning for underlying malignancy. 8. Patchy bilateral atelectasis versus infiltrate. 02/24/21 Echo 1. Dilated left ventricle. Severely decreased left ventricular ?systolic function. Left ventricular ejection fraction is ?estimated at 20 %. Severe global hypokinesis. Grade II diastolic ?dysfunction, moderately elevated filling pressures. ?2. Normal right ventricular size and systolic function. ?3. Pulmonary artery pressure estimated at 32 mm Hg. ?4. Mild mitral valve regurgitation. ?5. Mildly to moderately increased left atrial size. ?6. No significant change when compared to previous ?echocardiogram dated 09/19/2019. 10/10/19 [facility] No significant disease noted in the Left Main, LAD, Circumflex, or RCA coronary arteries. ? All harrell are hypokinetic. ? Severe left ventricular systolic dysfunction. Ejection fraction of 25%. ? Indication for left catheterization: Significantly drop in left ventricle function in a patient who is a smoker with worsening of heart failure, preop clearance. A&P Assessment and plan (1) Non-ST elevation [place] (NSTEMI): Troponin elevation from 14-->688. EKG with sinus rhythm, left atrial enlargement. IVCD. ST and T wave abnormality, consider inferior and lateral ischemia. Last angiogram was in 10/2019 that showed no significant disease. -Chest pain on arrival with signs and symptoms of CHF decompensation. -CTA negative for PE. -I had recommended ICD interrogation to assess for arrhythmia this mroning which is still pending. Further recommendation, based on findings on ICD. No VT/V fib episodes on ICD interrogation. NSVT and sustained runs of A. fib with RVR with last episode on 02/19/22. (2) Congestive heart failure: HFrEF, NICM, known LVEF=25% , s/p AICD s/p IV Lasix in ER and currently on p.o. Lasix. (3) Atrial fibrillation: Paroxysmal atrial fibrillation/atrial flutter -on amiodarone and Eliquis at home (non compliant to Eliquis) Qualifiers: Atrial fibrillation type: paroxysmal Qualified Code(s): I48.0 - Paroxysmal atrial fibrillation (4) Acute exacerbation of chronic obstructive airways disease: per primary team (5) Pneumonia: on antibiotics per primary team Rapid COVID and flu were negative (6) COPD (chronic obstructive pulmonary disease): Plan H/O ventricular arrhythmias H/O non compliance RA Tobacco abuse Consult Attestations Time Spent in Patient Care: Greater than 35 minutes Coding Level of Care Code Acute Assembly Repairer for [facility] Fwd Diagnoses Non-ST elevation [place] (NSTEMI) I21.4 Congestive heart failure I50.9 Atrial fibrillation I48.0 Atrial fibrillation type: paroxysmal Acute exacerbation of chronic obstructive airways disease J44.1 Pneumonia J18.9 COPD (chronic obstructive pulmonary disease) J44.9
[2022-02-22] VITALS (9 sets, daily range): BP systolic 117–151; BP diastolic 53–95; PULSE 67–86; RESP 15–23; TEMP 36.9–37; O2SAT 93–97
[2022-02-22] MEDS: cefTRIAXone 1,000 MG in sodium chloride 0.9% (plus) 50 ML 100 MG IV (01:08)
[2022-02-22] MEDS: enoxaparin 100 mg/mL Syringe SUBCUT (01:14)
[2022-02-22] MEDS: azithromycin 500 MG in sodium chloride 0.9% 250 ML 250 MG IV (02:05)
[2022-02-22 06:03] LABS: Basophils % 0.1 %; Hematocrit 40.8 % (37.0-47.0); Lymphocytes # 0.9 10^3/uL (0.8-4.8); Mean Corpuscular HGB Conc 31.9 g/dL (30.0-36.0); Mean Corpuscular Hemoglobin 29.7 pg (28.0-34.0); Mean Corpuscular Volume 93.4 fl (81-99); Mean Platelet Volume 11.4 fL (7.4-10.4); Monocytes # 0.4 10^3/uL (0.2-0.9); Monocytes % 4.4 %; Nucleated Red Blood Cells % 0 %; Platelet Count 199 10^3/cmm (130-400); Red Blood Count 4.37 10^6/uL (4.1-5.3); Red Cell Distribution Width 12.3 % (12.1-15.1); White Blood Count 9.9 10^3/uL (4.0-10.0)
[2022-02-22 06:22] LABS: Alanine Aminotransferase 15 U/L (0-33); Albumin Level 3.3 g/dL (3.5-5.2); Alkaline Phosphatase 153 U/L (35-105); Anion Gap 10.1 (5-19); Aspartate Amino Transferase 41 U/L (0-32); Blood Urea Nitrogen 21 mg/dL (8-23); Carbon Dioxide 31 mmol/L (22-29); Chloride 100 mmol/L (98-107); Globulin 3.8 g/dL (1.3-4.6); Glucose 160 mg/dL (65-115); Osmolality Calculated 290 mOsm/kg (285-295); Potassium 4.1 mmol/L (3.5-5.1); Sodium 137 mmol/L (136-145); Total Bilirubin 0.2 mg/dL (0.15-1.2); Total Protein 7.1 g/dL (6.6-8.7)
[2022-02-22] MEDS: ipratropium-albuterol 3 mL Neb INHALATION ×2 (08:13→15:00)
[2022-02-22] MEDS: budesonide 0.5 mg/2 mL Neb INHALATION (08:13)
[2022-02-22] MEDS: amiodarone 200 mg Tablet 400 MG PO (09:03)
[2022-02-22] MEDS: clopidogrel 75 mg Tablet PO (09:04)
[2022-02-22] MEDS: metoprolol succinate ER (24 HR) 25 mg Tablet PO (09:04)
[2022-02-22] MEDS: FUROsemide 40 mg Tablet PO (09:04)
[2022-02-22] MEDS: metoprolol succinate ER (24 HR) 100 mg Tablet PO (09:05)
[2022-02-22] MEDS: aspirin 81 mg Chew Tablet PO (09:05)
[2022-02-22] MEDS: isosorbide mononitrate 20 mg Tablet PO (09:06)
[2022-02-22] MEDS: hyDRALAzine 25 mg Tablet PO (09:06)
--- NOTE | 2022-02-22 09:29 | XACV_ITS ---
Exam Room: 2 Ht: 168 cm Wt: 99 kg BSA: 2.19 m2 Gender: Female : 1960 Any Known Allergies: Other Exam Priority: Routine Procedure(s): Procedure Description: Diagnostic procedure Procedure Description: Coronary Angiography Diagnostic Cath Status: Elective Diagnostic Findings * No disease noted in the very short Left Main, Left Anterior Descending, Right, or Circumflex coronary arteries. * Coronary angiography shows right dominance. Conclusions 1. No disease noted in the very short Left Main, Left Anterior Descending, Right, or Circumflex coronary arteries. Recommendations * Continue current medical management and risk factor modification. Pressures Phase:Rest AO : 111 / 64 ( 84 ) @ 11:22:00 AM 119 / 64 ( 88 ) @ 11:28:00 AM Clinical Evaluation EBL: 5mL-10mL Procedural Details Pre-Procedure Time Out. Identified patient by full name and date of as verbalized by the patient/guarantor. Does the consent match the physician's order: Yes. Accurate & Complete Informed Consent: Yes. Inpatient/Outpatient History & Physical on Chart: Yes. If H&P is completed, is and addenduem needed: No. Visualize and Verify Site with Patient/Guarantor: N/A. Relevant Radiology Images available: Yes. Pre-op teaching completed and patient verbalized understanding. The risks, benefits, and alternatives of sedation and/or procedure were discussed by physician. The patient agrees to continue. Current Diagnosis : NSTEMI. Procedure started. [facility] Clinical Fraility Score: 4: Vulnerable. Data Analysis Intern Indications: ACS > 24 hours. Chest Pain Symptom Assessment: Typical Angina Symptoms. Cardiovascular Instability: No. Correct patient, site and procedure confirmed by cath team. Current diagnosis: NSTEMI. PERRLA. Strong, equal hand roofing machine tender bilaterally. Lungs clear x 5 lobes. IV Site on Arrival: 20 gauge in the right anticubital was noted to be covered with dried blood,red, swollen, warm to touch, out of the vein. IV was discontinued. A new 22g IV was started in the right FA with ultrasound guidance by Juvencio Calvo RN, TAXONOMIST after 2 attemps in the left arm by Amairani Lugo RN, TAXONOMIST. IV Fluids: 0.9% NaCl at KVO. 0 mL infused prior to cath lab radiological technologist. Pre Procedural Pulses: bilateral dorsalis pedis was 3+. Pre Procedural Pulses: bilateral posterior tibial was 3+. Pre Procedural Pulses: bilateral radial was 3+. Oxygen started at 2liters/min via nasal canula. right groin was prepped with chloroprep then draped in the usual sterile fashion. right radial was prepped with chloroprep then draped in the usual sterile fashion. Physician notified. Baseline sample Acquired. HR: 73 BPM. Patient's family unavailable. Equipment: 6F - Radial. Cardiac Cath Pack. ACIST Manifold Kit Model BT 2000. Heparinized Saline (2 units/mL), 1000 mL bag. Physician arrived. Physician scrubbed in. Immediate Pre-Procedure Time Out. Correct Patient: Yes; Correct Procedure: Yes; Correct Site: Yes; Correct Patient Position: Yes; Correct Supplies: Yes; Dried Flammable Prep: Yes; Blood Products Available: N/A;. Lidocaine 1% infiltrated to the right radial. Daughter, Alice, updated by Amairani Lugo RN, TAXONOMIST about the delay in start time due to IV access. She verbalized her understanding. Arterial access obtained. 22g IV to the right FA not working. IV discontinued by Ravin Carter RN, TAXONOMIST and a pressure dressing was applied to the site. Will move to right femoral venous access for fluids and sedation meds. Lidocaine 1% infiltrated to the right groin. Venous access obtained with a micropuncture set. IV fluids were hooked up to sterile extension tubing x 2. A 5 kyrgyz TIG catheter in over the exchange J wire. Multiple views taken of left coronary artery. Catheter redirected to the RCA. Multiple views taken of right coronary artery. Catheter removed over the exchange J wire. Dr. Olivera scrubbed out. A TR Band was successful obtaining hemostatsis at the Right Radial artery insertion site. A Suture was successful obtaining hemostatsis at the Right Femoral vein insertion site. Vital chart was stopped. Right femoral venous sheath sutured into position with 2-0 silk and sterile 4x4's and Op-site applied over the site. No oozing or signs and symptoms of hematoma noted. Venous sheath flushed and connected to 0.9% NaCl with extension tubing. TR band placed. Hemostasis obtained. Post Procedure: Pulses reassessed and unchanged. A 16Fr dutta catheter was inserted without resistance maintaining sterile technique. Bag to gravity with clear urine returning. PERRLA. Strong, equal hand roofing machine tender bilaterally. No VTE prophylaxis required. Medication's Wasted: Lidocaine 1% = 2 mL. Medication's Wasted: Nitro = 49.2 mg. Medication's Wasted: Heparin = 2000 units. Total IV fluids: 200 mL. Post-op diagnosis: Normal coronaries. Complications: none. Estimated blood loss: 5mL-10mL. Responsiveness - Normal response to verbal stimuli; alert and oriented, PERRLA. Airway - Unaffected, no intervention required; spontaneous ventilation. Circulation: W/N/L, pulses unchanged. Nausea/Vomiting: No. Procedure completed. Patient transferred by bed to 1st floor. Access Site Site: Right Radial artery Sheath Size: 6 Fr Hemostasis Method: TR Band Hemostasis Success: Successful Site: Right Femoral vein Sheath Size: 4 Fr Hemostasis Method: Suture Hemostasis Success: Successful Procedure Medications Start: 11:12 AM Stop: 11:12 AM Medication: Versed Amount: 1 mg Route: I.V. Start: 11:12 AM Stop: 11:12 AM Medication: Fentanyl Amount: 25 mcg Route: I.V. Start: 11:15 AM Stop: 11:15 AM Medication: Versed Amount: 1 mg Route: I.V. Start: 11:15 AM Stop: 11:15 AM Medication: Fentanyl Amount: 25 mcg Route: I.V. Start: 11:16 AM Stop: 11:16 AM Medication: Nitrogylcerin Amount: 200 mcg Route: I.A. Start: 11:18 AM Stop: 11:18 AM Medication: Nitrogylcerin Amount: 200 mcg Route: I.A. Start: 11:20 AM Stop: 11:20 AM Medication: Fentanyl Amount: 25 mcg Route: I.V. Start: 11:21 AM Stop: :21 AM Medication: Verapamil Amount: 5 mg Route: I.A. Start: 11:21 AM Stop: 11:21 AM Medication: Fentanyl Amount: 25 mcg Route: I.V. Start: 11:30 AM Stop: 11:30 AM Medication: Heparin Amount: 4000 units Route: I.V. Start: 11:30 AM Stop: 11:30 AM Medication: Versed Amount: 1 mg Route: I.V. Start: 11:30 AM Stop: 11:30 AM Medication: Fentanyl Amount: 25 mcg Route: I.V. Start: 11:32 AM Stop: :32 AM Medication: Nitrogylcerin Amount: 200 mcg Route: I.A. Start: 11:34 AM Stop: : AM Medication: Verapamil Amount: 5 mg Route: I.A. Start: : AM Stop: : AM Medication: Versed Amount: 1 mg Route: I.V. I, the attending physician, have reviewed and verified all procedure medications. Yes, all medications given per verbal order History/Risk Factors Hypertension: Yes Dyslipidemia: Yes Peripheral Arterial Disease (PAD): No Myocardial Infarction (SD): No Obesity: Yes Renal Disease: No Tobacco Use: Current/Recent(w/in 1 year) Prior Interventions PCI: No CABG: No Valve Surgery: No Report Signatures Finalized by Kayla Olivera MD on 03/06/2022 03:52 PM
[2022-02-22] MEDS: diphenhydrAMINE 50 mg Capsule PO (09:56)
[2022-02-22] MEDS: sodium chloride 0.9% 1,000 ML 50 ML IV (09:57)
--- NOTE | 2022-02-22 10:07 | W.PM.OPSUD ---
Surgery/Procedure H&P Update DATE OF PROCEDURE: February 22, 2022 DATE H&P PERFORMED: 02/21/22 H&P UPDATE INFORMATION: I have reviewed H&P completed within last 30 days, I have examined patient prior to procedure and No changes to prior documentation PREOP DIAGNOSIS: NSTEMI PRIMARY INDICATION FOR PROCEDURE: NSTEMI PATIENT REASSESSED PRIOR TO SEDATION, WITH NO CHANGE NOTED: Yes PHYSICAL EXAM: alert, oriented x 3, clear to auscultation bilaterally and regular rate & rhythm AIRWAY EVAL/ANESTHESIA PLAN: normal airway, ASA III, Monitored Anesthesia, Local Anesthesia, Risks, benefits & alternatives of sedation and/or procedure discussed and Patient agrees to continue as planned
[2022-02-22 10:09] LABS: Troponin T (5th) Once 541 ng/L (0-10)
--- NOTE | 2022-02-22 12:10 | PM.PN ---
Subjective Subjective: Patient underwent left heart cath via right radial today Medications: Reviewed: Yes Vitals/I&O/Wt Last Vital Signs Temp 98.6 F 02/22/22 04:00 Pulse 84 02/22/22 08:00 Resp 18 02/22/22 08:00 BP 117/57 02/22/22 04:00 Pulse Ox 96 02/22/22 08:00 O2 Del Method 02/22/22 08:00 O2 Flow Rate 2 02/22/22 08:00 02/21/22 02/22/22 02/22/22 22:59 06:59 14:59 Intake Total 710 / 710 300 / 1010 Output Total 750 / 750 400 / 1150 300 / 300 Balance -40 / -40 -100 / -140 -300 / -300 Weight last 48 hrs Weight 219 lb 9 oz Weight 215 lb Physical Exam Narrative: GENERAL: obese woman laying in bed in no acute distress HEENT: Extraocular movement intact. No pallor or icterus. NECK: central trachea, No JVD, No carotid bruit. CARDIOVASCULAR SYSTEM: S1-S2 regular. No S3 or S4 present. No murmur rubs or gallops. RESPIRATORY SYSTEM: Chest clear to auscultation. + intermittent wheezes , No rhonchi or rubs heard. No use of accessory muscles. ABDOMEN: Soft, nontender and nondistended. Normal bowel sounds present. EXTREMITIES: No cyanosis or edema. No signs of chronic venous insufficiency. EXTERMINATOR TERMITE: Patient is alert oriented ?3. No focal neurological deficits. SKIN: Normal turgor and temperature. PSYCH: Normal insight and judgment. Data 02/22/22 05:30 02/22/22 05:30 Micro: Microbiology 02/20/22 21:16 Blood Culture - Preliminary Blood NEGATIVE TO DATE 02/20/22 21:14 Blood Culture - Preliminary Blood NEGATIVE TO DATE A&P Assessment and plan (1) Non-ST elevation [place] (NSTEMI): Troponin elevation from 14-->688. EKG with sinus rhythm, left atrial enlargement. IVCD. ST and T wave abnormality, consider inferior and lateral ischemia. Last angiogram was in 10/2019 that showed no significant disease. -Chest pain on arrival with signs and symptoms of CHF decompensation. -CTA negative for PE. -I had recommended ICD interrogation to assess for arrhythmia this morning which is still pending. Further recommendation, based on findings on ICD. No VT/V fib episodes on ICD interrogation. NSVT and sustained runs of A. fib with RVR with last episode on 02/19/22. Risks and benefits were discussed with the patients. Possible complications including risk of heart attack stroke and , coronary perforation, arrhythmia, cardiac tamponade in urgent CABG were discussed with the patient as well. Patient underwent LHC that showed normal coronaries. Right femoral central line placed d/t lack of IV access. (2) Congestive heart failure: HFrEF, NICM, known LVEF=25% , s/p AICD s/p IV Lasix in ER and currently on p.o. Lasix. (3) Atrial fibrillation: Paroxysmal atrial fibrillation/atrial flutter -on amiodarone and Eliquis at home (non compliant to Eliquis) Qualifiers: Atrial fibrillation type: paroxysmal Qualified Code(s): I48.0 - Paroxysmal atrial fibrillation (4) Acute exacerbation of chronic obstructive airways disease: per primary team (5) Pneumonia: on antibiotics per primary team Rapid COVID and flu were negative (6) COPD (chronic obstructive pulmonary disease): Plan H/O ventricular arrhythmias H/O non compliance RA Tobacco abuse Attestations Medical Necessity Statement*: as per primary team Coding Level of Care Code Acute Customer Complaint Clerk for [facility] Fwd Diagnoses Non-ST elevation [place] (NSTEMI) I21.4 Congestive heart failure I50.9 Atrial fibrillation I48.0 Atrial fibrillation type: paroxysmal Acute exacerbation of chronic obstructive airways disease J44.1 Pneumonia J18.9 COPD (chronic obstructive pulmonary disease) J44.9
--- NOTE | 2022-02-22 12:13 | PC.NURSE ---
Patient back in room at 1208pm. TR band site and venous sheath looks normal. no hematoma present. No bleeding.
--- NOTE | 2022-02-22 14:31 | PM.PN ---
Subjective Subjective: She is currently recovering following coronary angiogram. No significant obstructive coronary disease identified. She is sleepy, denies pain or discomfort, falls asleep promptly, unable to provide additional ROS. Medications: Reviewed: Yes Vitals/I&O/Wt Last Vital Signs Temp 98.6 F 02/22/22 04:00 Pulse 67 02/22/22 12:54 Resp 15 02/22/22 12:54 BP 151/95 02/22/22 12:54 Pulse Ox 97 02/22/22 12:54 O2 Del Method 02/22/22 12:36 O2 Flow Rate 2 02/22/22 08:00 02/21/22 02/22/22 02/22/22 22:59 06:59 14:59 Intake Total 710 / 710 300 / 1010 Output Total 750 / 750 400 / 1150 300 / 300 Balance -40 / -40 -100 / -140 -300 / -300 Weight last 48 hrs Weight 99.592 kg Weight 97.522 kg Physical Exam Const: GENERAL APPEARANCE: cooperative and lethargic ORIENTATION/CONSCIOUSNESS: Yes lethargic HENMT: COMMON NORMALS: oropharynx normal Neck/C-Spine: COMMON NORMALS: no JVD Resp: COMMON NORMALS: normal respiratory effort AUSCULTATION: diminished lung sounds Cardio: COMMON NORMALS: no JVD, regular rhythm, S1 normal heart sound present, S2 normal heart sound present and No murmurs present (Cardio) RHYTHM: regular rhythm HEART SOUNDS: S1 normal heart sound present and S2 normal heart sound present GI: COMMON NORMALS: Normal to inspection, nondistended, normoactive bowel sounds present, Soft to palpation and non-tender PALPATION: Yes Soft to palpation Extremity: COMMON NORMALS: no joint enlargement and no pedal edema OTHER: Right wrist TR band Neuro: COMMON NORMALS: moves all extremities SENSORIUM/ORIENTATION: Yes lethargic Skin: COMMON NORMALS: no rashes or lesions noted GENERAL SKIN EXAM: no rashes or lesions noted Data 02/22/22 05:30 02/22/22 05:30 Micro: Microbiology 02/20/22 21:16 Blood Culture - Preliminary Blood NEGATIVE TO DATE 02/20/22 21:14 Blood Culture - Preliminary Blood NEGATIVE TO DATE A&P Assessment and plan (1) Acute exacerbation of chronic obstructive airways disease: She did not give good ROS, but was reported to be having wheezing, dyspnea earlier this morning. Wheezing appears with improvement. Still diminished lung sounds. We will try to decrease IV steroid dose. Continue ceftriaxone, azithromycin. Duo nebs. Pulmonary toilet (2) Pneumonia: Continue IV antibiotics consisting of azithromycin and ceftriaxone. Patchy infiltrate noted on x-ray. Rapid COVID and flu were negative (3) Non-ST elevation [place] (NSTEMI): Coronary angiography revealed normal coronaries. Right femoral central line was placed due to lack of IV access. Stop aspirin, Plavix, anticoagulation continued for A. fib. Last angiogram was then 2019, and did not have any flow-limiting lesions at that time. Nonischemic cardiomyopathy with an EF of 25%. (4) Congestive heart failure: Patient presented with acute systolic heart failure. She got some IV Lasix in the emergency department and her p.o. Lasix has been ordered. Currently she is much better compensated, lungs are relatively clear 2 L of oxygen is her baseline. (5) Atrial fibrillation with controlled ventricular response: Continue home medications Note that she was anticoagulated with Eliquis. This has been changed to Lovenox Note that she has a defibrillator Continue amiodarone Plan Enlarged mediastinal lymph node. Patient complains of occasional hemoptysis. This can be followed up as an outpatient, with her wireless consultant Dr. Henao Multiple other medical problems as outlined in past medical history Full code Lovenox will suffice for DVT prophylaxis Attestations Medical Necessity Statement*: Continue admission for management of COPD exacerbation, pneumonia in a lady with nonischemic cardiomyopathy, low EF. Coding Level of Care Code Acute Fiber Optic Splicer for [facility] Diagnoses Acute exacerbation of chronic obstructive airways disease J44.1 Pneumonia J18.9 Non-ST elevation LA (NSTEMI) I21.4 Congestive heart failure I50.9 Atrial fibrillation with controlled ventricular response I48.91
--- NOTE | 2022-02-22 18:22 | P.DS_ITS ---
Discharge Providers Date of Admission: 02/21/22 08:04 Date of Discharge: February 22, 2022 Attending Provider at Admission: Cristel Strange MD Attending Provider at Discharge: Saran Castillo Primary Care Provider: Saman Florez NP Diagnoses at Discharge Discharge Diagnosis (1) Acute exacerbation of chronic obstructive airways disease: Status: Acute (2) Pneumonia: Status: Acute (3) Non-ST elevation [place] (NSTEMI): Status: Acute (4) Congestive heart failure: Status: Acute (5) Atrial fibrillation with controlled ventricular response: Status: Acute Reason for Visit Reason for Visit: chest pain SOB back pain Hospital Course Hospital Course Pleasant 62-year-old lady admitted after presenting with chest discomfort, with noted troponin elevation, with history of low EF with nonischemic cardiomyopathy, with troponin elevation significantly higher than the near normal baseline. Echocardiogram with noted severe dilation of LV, unchanged 25% ejection fraction. 2 COPD exacerbation, suspicion of possible pneumonia, was empirically treated with antibiotics with ceftriaxone, azithromycin, IV Solu- Medrol, neb treatments. Oxygen has remained close to her usual baseline, has oxygen at home. COVID and flu were negative. She was additionally assessed by cardiology, and underwent assessment by angiogram which revealed normal coronaries. ICD was interrogated with finding of NSVT sustained runs of A. fib with RVR with last episode on 02/19/2022. Heart rates remain well controlled in the hospital. After recovering from angiogram today she reports feeling significantly better. No shortness of breath is significantly improved entry, and she requested to return home tonight. He was okayed to discharge from cardiac perspective as well, after postprocedure care/discontinuation of right wrist access TR band. Reported history of some hemoptysis. On CT noted scattered prominent mediastinal lymph nodes measuring up to 17 mm, right hilar adenopathy measuring up to 2.8 cm, new compared to prior exam, nonspecific, however, is potentially concerning for underlying malignancy. Due to these. He is referred for additional ablation with pulmonology. Physical Exam Narrative: Accompanied by family. Const: GENERAL APPEARANCE: cooperative and lethargic ORIENTATION/CONSCIOUSNESS: Yes lethargic HENMT: COMMON NORMALS: oropharynx normal Neck/C-Spine: COMMON NORMALS: no JVD Resp: COMMON NORMALS: normal respiratory effort EFFORT & INSPECTION: Yes able to speak in complete sentences AUSCULTATION: diminished lung sounds Cardio: COMMON NORMALS: no JVD, regular rhythm, S1 normal heart sound present, S2 normal heart sound present and No murmurs present (Cardio) RHYTHM: regular rhythm HEART SOUNDS: S1 normal heart sound present and S2 normal heart sound present GI: COMMON NORMALS: Normal to inspection, nondistended, normoactive bowel sounds present, Soft to palpation and non-tender PALPATION: Yes Soft to palpation Extremity: COMMON NORMALS: no joint enlargement and no pedal edema OTHER: Right wrist TR band being reinflated by her nurse due to small amount of bleeding. Neuro: COMMON NORMALS: moves all extremities SENSORIUM/ORIENTATION: Yes lethargic Skin: COMMON NORMALS: no rashes or lesions noted GENERAL SKIN EXAM: no rashes or lesions noted Discharge Data Studies Completed and Pending Completed Studies During Hospitalization Category Date Time Status CTA chest [CT angio chest PE protcl [id number]] Stat Cat Scan 02/20/22 21:50 Completed XR chest 1V portable [id number] Stat Exams 02/20/22 20:48 Completed CV. 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 Cardiomegaly and pulmonary vascular congestion. 2. Bibasilar atelectasis versus minimal infiltrate. Chest CTA 02/20/22 21:50 IMPRESSION: 1. Negative for pulmonary embolus. 2. Scattered prominent mediastinal lymph nodes measuring up to 17 mm, nonspecific. 3. Small bilateral pleural effusions. 4. Main pulmonary artery is somewhat prominent which can be a finding of pulmonary artery hypertension. 5. Minimal coronary artery atherosclerotic calcifications. 6. Emphysematous changes. 7. Right hilar adenopathy measuring up to 2.8 cm, new compared to prior exam, nonspecific, however, is potentially concerning for underlying malignancy. 8. Patchy bilateral atelectasis versus infiltrate. Laboratory Results WBC 9.9 10^3/uL (4.0-10.0) 02/22/22 05:30 RBC 4.37 10^6/uL (4.1-5.3) 02/22/22 05:30 Hgb 13.0 g/dL (11.5-15.3) 02/22/22 05:30 Hct 40.8 % (37.0-47.0) 02/22/22 05:30 MCV 93.4 fl (81-99) 02/22/22 05:30 MCH 29.7 pg (28.0-34.0) 02/22/22 05:30 MCHC 31.9 g/dL (30.0-36.0) 02/22/22 05:30 RDW 12.3 % (12.1-15.1) 02/22/22 05:30 Plt Count 199 10^3/cmm (130-400) 02/22/22 05:30 MPV 11.4 fL (7.4-10.4) H 02/22/22 05:30 Neut % (Auto) 86.0 % 02/22/22 05:30 Lymph % (Auto) 9.0 % 02/22/22 05:30 Isabela % (Auto) 4.4 % 02/22/22 05:30 Eos % (Auto) 0.0 % 02/22/22 05:30 Baso % (Auto) 0.1 % 02/22/22 05:30 Neut # (Auto) 8.50 10^3/uL (1.8-7.7) H 02/22/22 05:30 Lymph # (Auto) 0.9 10^3/uL (0.8-4.8) 02/22/22 05:30 Isabela # (Auto) 0.4 10^3/uL (0.2-0.9) 02/22/22 05:30 Eos # (Auto) 0.0 10^3/uL (0.0-0.8) 02/22/22 05:30 Baso # (Auto) 0.0 10^3/uL (0.0-0.1) 02/22/22 05:30 Nucleated RBC % (auto) 0 % 02/22/22 05:30 Nucleated RBCs # 0.0 /100WBC 02/22/22 05:30 D-Dimer 18.36 ug/mIFEU (0-0.59) H 02/20/22 21:14 Sodium 137 mmol/L (136-145) 02/22/22 05:30 Potassium 4.1 mmol/L (3.5-5.1) 02/22/22 05:30 Chloride 100 mmol/L (98-107) 02/22/22 05:30 Carbon Dioxide 31 mmol/L (22-29) H 02/22/22 05:30 Anion Gap 10.1 (5-19) 02/22/22 05:30 BUN 21 mg/dL (8-23) 02/22/22 05:30 Creatinine 0.9 mg/dL (0.5-0.9) 02/22/22 05:30 GFR Calculation 63.0 mL/min (90-130) L 02/22/22 05:30 Glucose 160 mg/dL (65-115) H 02/22/22 05:30 Calculated Osmolality 290 mOsm/kg (285-295) 02/22/22 05:30 Lactic Acid 1.4 mmol/L (0.5-2.2) 02/20/22 21:14 Calcium 9.0 mg/dL (8.5-10.5) 02/22/22 05:30 Magnesium 2.0 mg/dL (1.7-2.3) 02/22/22 05:30 Total Bilirubin 0.2 mg/dL (0.15-1.2) 02/22/22 05:30 AST 41 U/L (0-32) H 02/22/22 05:30 ALT 15 U/L (0-33) 02/22/22 05:30 Alkaline Phosphatase 153 U/L (35-105) H 02/22/22 05:30 Troponin T Gen 5 ng/L 541 ng/L (0-10) H* 02/22/22 05:30 Troponin T Baseline 14 ng/L (0-10) H 02/20/22 21:14 Troponin T 120 Minute 410.8 ng/L (0-10) H 02/21/22 00:37 Delta Troponin T 396.8 ABS# (0-10) H* 02/21/22 00:37 Troponin T Hi Sens 6Hr 688.1 ng/L (0-10) H 02/21/22 03:43 Troponin T Hi Sens 6Hr Delta 674.1 ng/L (0-12) H* 02/21/22 03:43 C-Reactive Protein 12.1 mg/L (0.0-4.9) H 02/21/22 05:43 NT-Pro-B Natriuret Pep 2236 pg/mL (0-125) H 02/20/22 21:14 Total Protein 7.1 g/dL (6.6-8.7) 02/22/22 05:30 Albumin 3.3 g/dL (3.5-5.2) L 02/22/22 05:30 Globulin 3.8 g/dL (1.3-4.6) 02/22/22 05:30 Lipase 20 U/L (13-60) 02/20/22 21:14 Procalcitonin 0.04 ng/mL (0-0.5) 02/21/22 00:37 Influenza Type A Ag negative (Negative) 02/20/22 21:10 Influenza Type B Ag negative (Negative) 02/20/22 21:10 SARS-CoV-2 Ag (Rapid) negative (Negative) 02/20/22 21:10 Vitals Last Vital Signs Temp 98.6 F 02/22/22 04:00 Pulse 74 02/22/22 17:27 Resp 20 H 02/22/22 17:27 BP 151/95 02/22/22 17:27 Pulse Ox 94 02/22/22 17:27 O2 Del Method 02/22/22 15:00 O2 Flow Rate 2.5 02/22/22 15:00 Discharge Plan Discharge Patient Disposition: Home Condition: Stable Prescriptions: New cefdinir 300 mg capsule 300 mg PO BID 5 Days Qty: 10 0RF azithromycin 250 mg tablet 250 mg PO DAILY 5 Days Qty: 5 0RF prednisone 20 mg tablet 20 mg PO DAILY 11 Days Qty: 20 0RF Rx Instructions: 3 tab daily for 3 days, then 2 tab for 3 days, then 1 tab for 3 days, then 1/2 tab for 4 days. Eliquis 5 mg tablet 5 mg PO BID Qty: 180 0RF Continued Trelegy Ellipta 100-62.5-25 mcg blister with device 1 inh inhalation DAILY 30 Days Qty: 60 3RF prenat.vits,rain,neu-igjx-losna Tablet 1 tab PO DAILY amiodarone 400 mg tablet 400 mg PO DAILY Qty: 90 3RF furosemide 40 mg tablet 40 mg PO BID Qty: 180 3RF metoprolol succinate 100 mg tablet extended release 24 hr 100 mg PO DAILY Qty: 90 3RF Rx Instructions: Take with the 25mg to total 125mg daily ondansetron HCl 4 mg tablet 4 mg PO Q8H PRN (Reason: nausea and vomiting) metoprolol succinate 25 mg tablet extended release 24 hr 25 mg PO DAILY levalbuterol tartrate [Xopenex HFA] 45 mcg/actuation HFA aerosol inhaler 2 inh inhalation Q6H potassium chloride 20 mEq tablet extended release 30 meq PO DAILY fluticasone propionate [Flonase Allergy Relief] 50 mcg/actuation spray,suspension 1 spray intranasal BID Qty: 18 3RF Rx Instructions: administer into each nostril prednisone 5 mg tablet 5 mg PO DAILY PRN (Reason: flares) Qty: 30 1RF metolazone 2.5 mg tablet 2.5 mg PO DAILY PRN (Reason: weight gain) Qty: 30 0RF Rx Instructions: Take 30 minutes before morning lasix dose albuterol sulfate 90 mcg/actuation Hfa Aerosol Inhaler 2 puff INHALATION Q6H PRN (Reason: shortness of breath) gabapentin 400 mg capsule 400 mg PO TID PRN (Reason: unknown) albuterol sulfate 2.5 mg /3 mL (0.083 %) solution for nebulization 2.5 mg inhalation Q6H PRN (Reason: unknown) losartan 25 mg tablet 25 mg PO QNOON Held hydroxychloroquine 200 mg tablet 200 mg PO BID Qty: 60 2RF Hold Instructions: Resume on 02/27/22. Enbrel 50 mg/mL (1 mL) syringe 50 mg SUBCUT .qweek Qty: 4 5RF Hold Instructions: Resume on 03/01/22. Discontinued aspirin 81 mg Tablet,Chewable 81 mg PO DAILY Discharge Orders: Discharge Order (Routine); Ordered 02/22/22 Ordered By: Saran Castillo Referrals: DatarLouie MD [Physician] - 2 weeks ([facility] will call you on Thursday. If you do not hear from them, please call [phone].) Saman Florez, MAGGIE [Primary Care Provider] - 4-7 days ([facility] will call you with an appointment with Saman Florez on Thursday. If you do not hear from them please call them at [phone].) Discharge Diet: Cardiac Discharge Activity: Increase activity as tolerated and Oxygen as instructed Patient Instructions: Atrial Fibrillation, Prednisone (By mouth), Azithromycin (By mouth), Cefdinir (By mouth), Apixaban (By mouth) (Eliquis), Heart Failure (DC), Using Oxygen at Home (GEN), COPD (Chronic Obstructive Pulmonary Disease) (GEN), Hypoxia (GEN) Activity Restrictions/Additional Instructions: Follow-up with your primary doctor for reassessment after exacerbation of COPD, pneumonia. Continue follow-up with cardiology with regards to nonischemic cardiomyopathy. Follow-up with your primary doctor as well as pulmonology specialist with regards to occasional hemoptysis, enlarged hilar and mediastinal lymph node. Continue oxygen at home, target oxygen saturation 88-92%. Discharge Attestations Time Spent in Discharge Care*: greater than 30 min Status at Discharge: Cognitive status at discharge: cognitively intact , Behavioral status at discharge: cooperative , Quality Metrics Clinical Quality Measures [ No reported AMI, CVA or VTE this stay] Coding Level of Care Code Acute Chg FW DC note Diagnoses Acute exacerbation of chronic obstructive airways disease J44.1 Pneumonia J18.9 Non-ST elevation [place] (NSTEMI) I21.4 Congestive heart failure I50.9 Atrial fibrillation with controlled ventricular response I48.91
== END 2022-02-22 18:23 | disposition home or self-care (01) | DRG 286 ==
LOC: ER 02-21 03:30 → ER IP 02-21 08:05 → CSU 02-21 15:58
PROVIDERS: Internal Medicine; Internal Medicine Cardiovascular Disease; Admitting Provider Internal Medicine; Emergency Provider Emergency Medicine; PCP Nurse Practitioner Family; Visit Provider Internal Medicine
PROC: B2111ZZ Fluoroscopy of Multiple Coronary Arteries using Low Osmolar Contrast (ICD-10-PCS; principal; 2022-02-22 11:00)
DX: I11.0 Hypertensive heart disease with heart failure (principal); I50.23 Acute on chronic systolic (congestive) heart failure; J18.9 Pneumonia, unspecified organism; I16.1 Hypertensive emergency; R04.2 Hemoptysis; I47.1 Supraventricular tachycardia; I42.8 Other cardiomyopathies; J43.9 Emphysema, unspecified; I48.0 Paroxysmal atrial fibrillation; R79.1 Abnormal coagulation profile; R59.0 Localized enlarged lymph nodes; K21.9 Gastro-esophageal reflux disease without esophagitis; M06.9 Rheumatoid arthritis, unspecified; F17.210 Nicotine dependence, cigarettes, uncomplicated; E78.5 Hyperlipidemia, unspecified; E66.9 Obesity, unspecified; G47.33 Obstructive sleep apnea (adult) (pediatric); M79.7 Fibromyalgia; T45.516A Underdosing of anticoagulants, initial encounter; Z91.138 Patient's unintentional underdosing of medication regimen for other reason; Z95.810 Presence of automatic (implantable) cardiac defibrillator; Z79.82 Long term (current) use of aspirin; Z82.49 Family history of ischemic heart disease and other diseases of the circulatory system; Z68.35 Body mass index [BMI] 35.0-35.9, adult; Z99.81 Dependence on supplemental oxygen; Z79.52 Long term (current) use of systemic steroids; Z79.01 Long term (current) use of anticoagulants
CPT/HCPCS: 36415; 71045; 71275; 80048; 80053; 83605; 83690; 83735; 83880; 84145; 84484; 85025; 85378; 86140; 87040; 87426; 87804; 93005; 93306; 93454; 94640; 96365; 96367; 96372; 96375; 99152; 99153; 99291; C1769; C1887; C1894; J0456; J0696; J1200; J1644; J1650; J1940; J2250; J2920; J2930; J3010; J3490; J7030; J7050; J7613; J7626; Q0163; Q9967

== ENCOUNTER → 2022-03-04 11:49 | Outpatient (BNVA) | payer MEDICARE, MEDICAID, SELFPAY | PROVIDERS: PCP Nurse Practitioner Family; Visit Provider Internal Medicine Pulmonary Disease | DX: J44.9 Chronic obstructive pulmonary disease, unspecified (principal); J18.9 Pneumonia, unspecified organism; G47.33 Obstructive sleep apnea (adult) (pediatric); I42.8 Other cardiomyopathies; I48.91 Unspecified atrial fibrillation; M06.9 Rheumatoid arthritis, unspecified; R59.0 Localized enlarged lymph nodes; Z79.01 Long term (current) use of anticoagulants; F17.210 Nicotine dependence, cigarettes, uncomplicated; J96.11 Chronic respiratory failure with hypoxia | CPT/HCPCS: 99214 ==

== ENCOUNTER 2022-03-11 06:13 | Day surgery (SDC) | payer MEDICARE, MEDICAID, SELFPAY ==
[2022-03-10 08:34] VITALS: BMI 34.7
[2022-03-11] VITALS (13 sets, daily range): BP systolic 90–144; BP diastolic 56–95; PULSE 40–96; RESP 16–24; TEMP 36.3–36.4; O2SAT 92–99
[2022-03-11] MEDS: sodium chloride 0.9% 1,000 ML 30 ML IV (06:45)
[2022-03-11] MEDS: ipratropium-albuterol 3 mL Neb INHALATION (07:12)
--- NOTE | 2022-03-11 07:31 | P.ANESASSM_ITS ---
Pre-Anesthetic Assessment Height/Weight: Height 1.68 m Weight 97.522 kg Temp Pulse Resp BP Pulse Ox O2 Del Method 97.4 F L 96 20 H 123/95 94 03/11/22 06:39 03/11/22 07:18 03/11/22 07:18 03/11/22 06:39 03/11/22 07:18 03/11/22 07:18 Preop Diagnosis: NSTEMI Operation Date: 03/11/22 08:20 Proposed Procedures p EBUS 72298, 32285,R91.8(Not Applicable) - Louie Henao MD s Bronchoscopy(Not Applicable) - Louie Henao MD Last intake: Intake Last Liquid Date 03/10/22 Last Liquid Time 23:00 Last Solid Date 03/10/22 Last Solid Time 18:30 Pulmonary Chronic Obstructive Pulmonary Disease and Sleep Apnea hx pneumonia CV/HEM Atrial Fibrillation, Congestive Heart Failure (NICM) and Hypertension AICD in place 02/20 ECHO?CONCLUSIONS ?1. Severely dilated left ventricular cavity size. Severely ?decreased left ventricular systolic function. Left ventricular ?ejection fraction is estimated at 25 %. Severe global left ?ventricular hypokinesis. Grade II diastolic dysfunction, ?moderately elevated filling pressures. ?2. Mild mitral valve regurgitation. ?3. No change when compared to study dated 02/24/2021. 02/20 CATH Diagnostic Findings ? * No disease noted in the very short Left Main, Left Anterior Descending, Right, or Circumflex coronary arteries. ? * Coronary angiography shows right dominance. Conclusions ? 1. No disease noted in the very short Left Main, Left Anterior Descending, Right, or Circumflex coronary arteries. Recommendations ? * Continue current medical management and risk factor modification. [facility] [place] Rheumatoid Arthritis Medications/Allergies Home Medications Medication Instructions Recorded Confirmed Last Taken Type albuterol sulfate 90 mcg/actuation 2 puff inhalation Q6H PRN 09/19/19 03/10/22 03/11/22 History aerosol inhaler shortness of breath gabapentin 400 mg capsule 400 mg PO TID PRN nerve pain 11/14/19 03/10/22 03/10/22 History albuterol sulfate 2.5 mg/3 mL 2.5 mg inhalation Q6H PRN 12/26/19 03/10/22 03/11/22 History (0.083 %) solution for nebulization Shortness Of Breath hydroxychloroquine 200 mg tablet 200 mg PO BID #60 tabs 02/18/21 03/10/22 03/09/22 Rx prednisone 5 mg tablet 5 mg PO DAILY PRN flares #30 tabs 02/18/21 03/10/22 2 Weeks Ago Rx ~02/24/22 metolazone 2.5 mg tablet 2.5 mg PO DAILY PRN weight gain 03/21/21 03/10/22 03/09/22 Rx #30 tabs amiodarone 400 mg tablet 400 mg PO DAILY #90 tabs 03/26/21 03/10/22 03/11/22 Rx furosemide 40 mg tablet 40 mg PO BID #180 tabs 03/26/21 03/10/22 03/10/22 Rx metoprolol succinate 100 mg 100 mg PO DAILY #90 tabs 03/26/21 03/10/22 03/11/22 Rx tablet,extended release 24 hr prenat.vits,rain,vbc-zols-dimmn 1 tab PO DAILY 03/26/21 03/10/22 03/09/22 History fluticasone fur. 100 mcg-umeclid 1 inh inhalation DAILY 30 days #60 05/21/21 03/10/22 03/11/22 Rx 62.5 mcg-vilant 25 mcg ea inhalat.powder (Trelegy Ellipta) losartan 25 mg tablet 25 mg PO QNOON 06/19/21 03/10/22 03/09/22 History etanercept 50 mg/mL (1 mL) 50 mg SUBCUT .qweek #4 mL 09/03/21 03/10/22 2 Weeks Ago Rx subcutaneous syringe (Enbrel) ~02/24/22 fluticasone propionate 50 1 spray intranasal BID #18 mL 12/20/21 03/10/22 03/10/22 Rx mcg/actuation nasal spray,suspension (Flonase Allergy Relief) levalbuterol tartrate 45 2 inh inhalation Q6H shortness of 12/20/21 03/10/22 03/10/22 History mcg/actuation aerosol inhaler breath/wheezing (Xopenex HFA) metoprolol succinate 25 mg 25 mg PO DAILY take along with 12/20/21 03/10/22 03/11/22 History tablet,extended release 24 hr 100mg tab every day ondansetron HCl 4 mg tablet 4 mg PO Q8H PRN nausea and vomiting 12/20/21 03/10/22 03/09/22 History potassium chloride 20 mEq 30 meq PO DAILY 12/20/21 03/10/22 03/09/22 History tablet,extended release apixaban 5 mg tablet (Eliquis) 5 mg PO BID #180 tabs 02/22/22 03/11/22 03/06/22 Rx Allergies Allergy/AdvReac Type Severity Reaction Status Date / Time dronedarone Allergy Severe rash, Verified 03/10/22 08:25 swelling doxacurium Allergy HIVES,RASH Verified 03/10/22 08:25 sulfamethoxazole Allergy ALGY-Rash Verified 03/10/22 08:25 [From Bactrim] trimethoprim [From Bactrim] Allergy ALGY-Rash Verified 03/10/22 08:25 Current Medications Generic Name Dose Route Start Last Admin Trade Name Freq PRN Reason Stop Dose Admin Sodium Chloride 1,000 mls @ 30 mls/hr 03/11/22 06:30 03/11/22 06:45 Sodium Chloride 0.9% IV 03/12/22 06:29 30 mls/hr .Q24H RUSSELL Administration PFSH Anesthesia Medical History Atrial fibrillation Atrial flutter CHF (congestive heart failure) COPD (chronic obstructive pulmonary disease) Edema leg Emphysema/COPD Fibromyalgia GERD (gastroesophageal reflux disease) History of coronary angiogram Hypertension Hypotension Nonischemic cardiomyopathy Ejection fraction 20% Osteoarthritis Rheumatoid arthritis Sinus tachycardia Tobacco dependency Surgical History AICD (automatic cardioverter/defibrillator) present H/O: hysterectomy S/P tonsillectomy Family History Father Cancer Mother Cancer Sister Cancer Other CAD (coronary artery disease) Hyperlipidemia Hypertension Lung disease Denies family history of Psychiatric illness Social History Smoking and tobacco status: current every day smoker cigarettes Packs smoked per day: 2 Years cigarettes smoked: 50 [ Other cigarette details: Started at age 10 years] Alcohol intake: never History of recent travel: No Data Anesthesia Cardiac Studies: Echocardiogram 02/21/22 Echocardiogram Ultrasound 09/23/19 Cardiac Event Monitor 11/17/19
--- NOTE | 2022-03-11 08:02 | W.PM.OPSUD ---
Surgery/Procedure H&P Update DATE OF PROCEDURE: March 11, 2022 DATE H&P PERFORMED: 03/04/22 CHANGES TO PREVIOUS DOCUMENTATION: Noted significant bilateral wheezing-we will pretreat with albuterol nebulization PREOP DIAGNOSIS: hilar adenopathy PRIMARY INDICATION FOR PROCEDURE: CTA 02/21/2022? showed prominent mediastinal lymph nodes measuring 17 mm, right hilar adenopathy measuring 2.8 cm PLANNED PROCEDURE: Operation Date: 03/11/22 08:20 Proposed Procedures p EBUS 80442, 80174,R91.8(Not Applicable) - Louie Henao MD s Bronchoscopy(Not Applicable) - Louie Henao MD
[2022-03-11] MEDS: lidocaine 1% INJ 10 mL (per mL) 20 ML XX (09:35)
--- NOTE | 2022-03-11 10:06 | XRR_ITS ---
PROCEDURE INFORMATION: Exam: XR Chest Exam date and time: 03/11/2022 10:27 AM Age: 62 years old Clinical indication: Device placement; Other: Post bronchoscopy with lavage TECHNIQUE: Imaging protocol: Radiologic exam of the chest. Views: 1 view. COMPARISON: CR (CHEST, ) 02/20/2022 8:53 PM FINDINGS: Lungs: There is eccentric central weighted bronchovascular markings right lower lung zone with mild peribronchial cuffing, nonspecific, possibly secondary to pulmonary congestion relatively stable.. Pleural spaces: Unremarkable. No pleural effusion. No pneumothorax. Heart/Mediastinum: Cardiac silhouette is mildly enlarged. There is a single electrode pacemaker projecting in the right ventricle unchanged. There is pulmonary vascular redistribution indicating elevated central venous pressure. There is mild fullness and nodularity to the hilum the mediastinum consistent with the lymphadenopathy demonstrated on previous CT chest. Bones/joints: Unremarkable for age. XR/XR chest 1V portable [id number] IMPRESSION: 1. Cardiomegaly with elevated central venous pressure and questionable pulmonary congestion right lower lung zone. 2. Negative for pneumothorax.
[2022-03-11 10:19] LABS: Apprearance, Bronch Wash Bloody (CLEAR); Color, Bronc Wash Red; Cyto Order Verification Order Verified
[2022-03-11 10:20] LABS: Bronch Source Right Middle Lobe
--- NOTE | 2022-03-11 10:34 | ANE.PACU2 ---
Inpatient post-anesthesia follow up: Airway intact: Yes Vital signs: Temperature 97.6 F Pulse Rate 78 Respiratory Rate 16 Blood Pressure 101/72 Pulse Oximetry 96 Oxygen Delivery Me thod Nasal Cannula Oxygen Flow Rate 2 Fraction of Inspir ed Oxygen Hydration adequate: Yes Nausea and vomiting: No Pain level: 1 Mental status: Baseline
[2022-03-11 10:38] LABS: Total Cells Counted Bronch 0
--- NOTE | 2022-03-11 10:42 | P.OP_ITS ---
Operative Report Date of procedure: March 11, 2022 Pre-op diagnosis: Preop Diagnosis hilar adenopathy Post-op diagnosis: Hilar and mediastinal lymphadenopathy - suspect lymphoma Procedure done: 91563 Dx Bronchoscope w/Washings or airway inspection 51791 Dx Bronchoscope w/BAL 30430 Bronchoscopy w/ therapeutic aspiration of the tracheobronchial tree (clearance of airway secretions, removal of mucus plugs) 96312 EBUS Sampling >=3 nodes Surgeon: Louie Henao MD [facility] Brief History: 62-year-old male Ms. Shana Roy has past medical history of nonischemic cardiomyopathy which ejection fraction less than 30% s/p AICD, with extensive smoking history 2 packs/day for 50 years, COPD, hypoxic respiratory failure, obstructive sleep apnea, recently admitted to hospital in January 2022 for COPD exacerbation secondary to possible pneumonia treated with antibiotics, IV steroids, nebulizations. Underwent angiogram by cardiology revealed normal coronaries. During admission CT angiogram showed prominent mediastinal lymph nodes and right hilar adenopathy measuring 2.8 cm stable compared to prior exam, nonspecific but concerning for underlying malignancy. No other lesions are seen in CT chest Hence today scheduled for bronchoscopy and endobronchial ultrasound-guided biopsies of hilar/mediastinal lymph nodes. Procedure: 52362 Dx Bronchoscope w/Washings or airway inspection 87349 Dx Bronchoscope w/BAL 40099 Bronchoscopy w/ therapeutic aspiration of the tracheobronchial tree (clearance of airway secretions, removal of mucus plugs) 52598 EBUS Sampling >=3 nodes Indication: CT chest January 2022-prominent mediastinal/right hilar lymph node nonspecific-cannot rule out underlying malignancy Description of the procedure: The procedure was explained to the patient and the consent was obtained. The patient was brought to the OR. Anesthesia: The patient underwent endotracheal intubation for general anesthesia. Local anesthesia: The gabriel in the right and left mainstem bronchi were anesthetized with 1% lidocaine, 3 mL. Following induction of general anesthesia, the flexible bronchoscope used for initial inspection (69024) and airway clearance (61054). The scope was advanced through the ET tube. The lower trachea mucosa appeared normal, no endotracheal lesion was seen. The gabriel was sharp. The gabriel, the right and left mainstem bronchi are anesthetized with 1% lidocaine. In a systematic manner bilateral bronchial tree was then examined. The bronchoscope was then introduced into the right mainstem bronchus. The right upper lobe, right middle lobe and right lower lobe bronchi were examined up to the third subsegmental level and no abnormalities were identified. There were significant mucus secretions which were suctioned right away. The bronchoscope was advanced into the left mainstem bronchus. The mucosa appeared normal with no endobronchial lesions. The left upper lobe, lingula and left lower lobe bronchi were examined up to the third subsegmental level and no abnormalities were identified. Mucosa appeared normal with no endobronchial lesion, active bleeding or mucous plug. There were significant mucus secretions in lower lobe-which were suctioned right away. The bronchoscope was retracted and endobronchial ultrasound was introduced. Identified a lymph node station 4R, 11R, 4L, and station 7 area and fine-needle aspiration cytology samples were obtained. Samples: 1. Bronchoalveolar lavage specimen was sent for cell count and differential, gram stain and culture, Cytology 2. EBUS guided fine-needle aspiration cytology of station 4R lymph node-samples sent in formalin 3. EBUS guided fine-needle aspiration cytology of station 11 R lymph node- samples sent in formalin 4. EBUS guided fine-needle aspiration cytology of station 4L-sample sent in formalin 5. EBUS guided fine-needle aspiration cytology of station 7 sent in formalin Complications: None.The patient was extubated and brought to the PACU in stable condition. Postprocedure chest x-ray: No evidence of pneumothorax Disposition: Patient can be discharged home in stable condition. I will set up clinic follow-up in 7-10 days to follow-up on biopsy results.
== END 2022-03-11 11:05 | disposition home or self-care (01) ==
PROVIDERS: PCP Nurse Practitioner Family; Visit Provider Internal Medicine Pulmonary Disease
PROC: BB4BZZZ Ultrasonography of Pleura (ICD-10-PCS; principal; 2022-03-11 08:10)
PROC: 0BJ08ZZ Inspection of Tracheobronchial Tree, Via Natural or Artificial Opening Endoscopic (ICD-10-PCS; CPT 31622; 2022-03-11 08:10)
DX: R91.8 Other nonspecific abnormal finding of lung field (principal); I89.0 Lymphedema, not elsewhere classified; G47.30 Sleep apnea, unspecified; I48.91 Unspecified atrial fibrillation; I11.0 Hypertensive heart disease with heart failure; I50.9 Heart failure, unspecified; J43.9 Emphysema, unspecified; M79.7 Fibromyalgia; K21.9 Gastro-esophageal reflux disease without esophagitis; F17.210 Nicotine dependence, cigarettes, uncomplicated
CPT/HCPCS: 31624; 31645; 31653; 71045; 87070; 87205; 88108; 88305; 88312; 89050; 94640; J0330; J1100; J2405; J2704; J2710; J3010; J3490; J7030

== ENCOUNTER 2022-03-17 08:36 | Outpatient (CLI) | payer MEDICARE, MEDICAID, SELFPAY | END 2022-03-17 08:37 | disposition home or self-care (01) | LOC: RT 08:39 | PROVIDERS: PCP Nurse Practitioner Family; Visit Provider Internal Medicine Pulmonary Disease | DX: J96.11 Chronic respiratory failure with hypoxia (principal) | CPT/HCPCS: 94060; 94726; 94729; J7613 ==

== ENCOUNTER → 2022-03-21 09:23 | Outpatient (BNVA) | payer MEDICARE, MEDICAID, SELFPAY | PROVIDERS: PCP Nurse Practitioner Family; Visit Provider Internal Medicine Pulmonary Disease | DX: G47.33 Obstructive sleep apnea (adult) (pediatric) (principal); J44.9 Chronic obstructive pulmonary disease, unspecified; I42.8 Other cardiomyopathies; I48.91 Unspecified atrial fibrillation; M06.9 Rheumatoid arthritis, unspecified; R59.0 Localized enlarged lymph nodes; I50.9 Heart failure, unspecified; Z79.01 Long term (current) use of anticoagulants; Z87.891 Personal history of nicotine dependence | CPT/HCPCS: 99214 ==

== ENCOUNTER → 2022-05-27 10:38 | Outpatient (BNVA) | payer MEDICARE, MEDICAID, SELFPAY | PROVIDERS: PCP Family Medicine; Visit Provider Internal Medicine Cardiovascular Disease | DX: I48.0 Paroxysmal atrial fibrillation (principal); I11.0 Hypertensive heart disease with heart failure; I50.9 Heart failure, unspecified; I25.5 Ischemic cardiomyopathy; R06.02 Shortness of breath; Z95.810 Presence of automatic (implantable) cardiac defibrillator; G47.33 Obstructive sleep apnea (adult) (pediatric); I42.8 Other cardiomyopathies; F17.210 Nicotine dependence, cigarettes, uncomplicated; Z79.01 Long term (current) use of anticoagulants | CPT/HCPCS: 99215 ==

== ENCOUNTER → 2022-06-24 10:38 | Outpatient (BNVA) | payer MEDICARE, MEDICAID, SELFPAY | PROVIDERS: PCP Family Medicine; Visit Provider Nurse Practitioner Family | DX: I11.0 Hypertensive heart disease with heart failure (principal); I50.9 Heart failure, unspecified; F17.210 Nicotine dependence, cigarettes, uncomplicated; Z79.01 Long term (current) use of anticoagulants | CPT/HCPCS: 99214 ==

== ENCOUNTER 2022-07-04 14:19 | Outpatient (CLI) | payer MEDICARE, MEDICAID, SELFPAY ==
[2022-07-04 15:56] LABS: Blood Urea Nitrogen 15 mg/dL (8-23); Calcium 9.5 mg/dL (8.5-10.5); Carbon Dioxide 24 mmol/L (22-29); Chloride 99 mmol/L (98-107); Glomerular Filtration Rate 55.8 mL/min (90-130); Glucose 84 mg/dL (65-115); NT Pro B Type Natriuretic Pept 963 pg/mL (0-125); Osmolality Calculated 282 mOsm/kg (285-295); Sodium 136 mmol/L (136-145)
[2022-07-04 15:58] LABS: Anion Gap 17.5 (5-19); Potassium 4.5 mmol/L (3.5-5.1)
== END 2022-07-04 14:20 | disposition home or self-care (01) ==
PROVIDERS: Nurse Practitioner Family; PCP Family Medicine; Visit Provider Internal Medicine Cardiovascular Disease
DX: I50.9 Heart failure, unspecified (principal)
CPT/HCPCS: 80048; 83880

== ENCOUNTER → 2022-07-22 12:43 | Outpatient (BNVA) | payer MEDICARE, MEDICAID, SELFPAY | PROVIDERS: PCP Family Medicine; Visit Provider Nurse Practitioner Family | DX: I42.8 Other cardiomyopathies (principal); F17.210 Nicotine dependence, cigarettes, uncomplicated | CPT/HCPCS: 99214 ==

== ENCOUNTER → 2022-09-18 10:14 | Outpatient (BNVA) | payer MEDICARE, MEDICAID, SELFPAY | PROVIDERS: PCP Family Medicine; Visit Provider Internal Medicine Pulmonary Disease | DX: J44.9 Chronic obstructive pulmonary disease, unspecified (principal); G47.33 Obstructive sleep apnea (adult) (pediatric); I42.8 Other cardiomyopathies; I48.91 Unspecified atrial fibrillation; M06.9 Rheumatoid arthritis, unspecified; R59.0 Localized enlarged lymph nodes; F17.210 Nicotine dependence, cigarettes, uncomplicated | CPT/HCPCS: 99214 ==

== ENCOUNTER 2022-10-14 08:25 | Outpatient (CLI) | payer MEDICARE, MEDICAID, SELFPAY ==
[2022-10-14 09:15] LABS: Basophils % 0.9 %; Eosinophils # 0.2 10^3/uL (0.0-0.8); Eosinophils % 3.8 %; Hematocrit 36.9 % (37.0-47.0); Hemoglobin 12.3 g/dL (11.5-15.3); Lymphocytes % 42.9 %; Mean Corpuscular HGB Conc 33.3 g/dL (30.0-36.0); Mean Corpuscular Hemoglobin 33.8 pg (28.0-34.0); Mean Corpuscular Volume 101.4 fl (81-99); Mean Platelet Volume 9.8 fL (7.4-10.4); Monocytes # 0.5 10^3/uL (0.2-0.9); Monocytes % 10.5 %; Neutrophils # 1.95 10^3/uL (1.8-7.7); Neutrophils % 41.7 %; Nucleated Red Blood Cells % 0 %; Platelet Count 92 10^3/cmm (130-400); Red Blood Count 3.64 10^6/uL (4.1-5.3); Red Cell Distribution Width 13.7 % (12.1-15.1); White Blood Count 4.7 10^3/uL (4.0-10.0)
[2022-10-14 09:28] LABS: Erythrocyte Sedimentation Rate 3 mm/hr (0-15)
[2022-10-14 09:52] LABS: Alanine Aminotransferase 14 U/L (0-33); Albumin Level 3.7 g/dL (3.5-5.2); Alkaline Phosphatase 176 U/L (35-105); Anion Gap 11.1 (5-19); Aspartate Amino Transferase 20 U/L (0-32); Blood Urea Nitrogen 13 mg/dL (8-23); C Reactive Protein 12.9 mg/L (0.0-4.9); Calcium 9.1 mg/dL (8.5-10.5); Carbon Dioxide 30 mmol/L (22-29); Chloride 103 mmol/L (98-107); Globulin 3.4 g/dL (1.3-4.6); Glomerular Filtration Rate 55.8 mL/min (90-130); Glucose 95 mg/dL (65-115); NT Pro B Type Natriuretic Pept 601 pg/mL (0-125); Osmolality Calculated 290 mOsm/kg (285-295); Potassium 4.1 mmol/L (3.5-5.1); Sodium 140 mmol/L (136-145); Total Bilirubin 0.2 mg/dL (0.15-1.2); Total Protein 7.1 g/dL (6.6-8.7)
[2022-10-15 17:33] LABS: Alternaria Alternata (M6) Ige <0.10 kU/L; Alternaria Class 0; Bermuda Class 0; Bermuda Grass (G2) Ige <0.10 kU/L; Cat Dander (E1) Ige <0.10 kU/L; Cat Dander Class 0; Common Ragweed (Short) (W1) Ig <0.10 kU/L; D. Farinae Class 0; Dermatophagoides Class 0; Dermatophagoides Farinae (D2) <0.10 kU/L; Dermatophagoides Pteronyssinus <0.10 kU/L; Dog Dander (E5) Ige <0.10 kU/L; Dog Dander Class 0; Elm (T8) Ige <0.10 kU/L; Elm Class 0; English Plantain (W9) Ige <0.10 kU/L; English Plantain Class 0; House Dust (Greer) (H1) Ige <0.10 kU/L; House Dust (Hollister- Stier) 0.46 kU/L; House Dust Class 0; House Dust Class 1; Immunoglobulin E 81 kU/L (<OR=114); Johnson Grass (G10) Ige 0.78 kU/L; Johnson Grass Cl 2; June Grass Class 0; June Grass(Kentucky Blue) (G8) <0.10 kU/L; Lamb'S Quarters (Goose Foot) <0.10 kU/L; Lamb'S Quarters Class 0; Maple (Box Elder) (T1) Ige <0.10 kU/L; Maple Class 0; Meadow Fescue (G4) Ige <0.10 kU/L; Meadow Fescue Class 0; Mucor Racemosus Class 0; Oak (T7) Ige <0.10 kU/L; Oak Class 0; Orchard Grass (Cocksfoot) (G3) <0.10 kU/L; Penicillium Class 0; Penicillium Notatum (M1) Ige <0.10 kU/L; Perennial Rye Grass (G5) Ige <0.10 kU/L; Perennial Rye Grass Class 0; Ragweeed Class 0; Rough Marsh Elder (W16) Ige <0.10 kU/L; Rough Marsh Elder Class 0; Sweet Vernal Class 0; Sweet Vernal Grass (G1) Ige <0.10 kU/L; Timothy Grass (G6) Ige <0.10 kU/L; Timothy Grass Class 0
[2022-10-16 20:40] LABS: Aspergillus Fumigatus, Igg Ab, 8.9 mg/L (<=102)
== END 2022-10-14 08:26 | disposition home or self-care (01) ==
LOC: LAB 08:29
PROVIDERS: Internal Medicine; Internal Medicine Pulmonary Disease; PCP Family Medicine; Visit Provider Nurse Practitioner Family
DX: J30.2 Other seasonal allergic rhinitis (principal); I42.8 Other cardiomyopathies; M06.9 Rheumatoid arthritis, unspecified; R06.02 Shortness of breath
CPT/HCPCS: 36415; 80048; 80053; 82785; 83880; 85025; 85651; 86003; 86140

== ENCOUNTER → 2022-10-21 13:27 | Outpatient (BNVA) | payer MEDICARE, MEDICAID, SELFPAY | PROVIDERS: PCP Family Medicine; Visit Provider Internal Medicine | DX: M06.9 Rheumatoid arthritis, unspecified (principal); N17.9 Acute kidney failure, unspecified; I50.42 Chronic combined systolic (congestive) and diastolic (congestive) heart failure; J44.9 Chronic obstructive pulmonary disease, unspecified; F17.210 Nicotine dependence, cigarettes, uncomplicated | CPT/HCPCS: 99214 ==

== ENCOUNTER 2022-10-25 14:33 | Emergency (ER) | payer MEDICARE, MEDICAID, SELFPAY ==
[2022-10-25 14:40] VITALS: BP 125/74; PULSE 83; RESP 20; TEMP 36.5; O2SAT 92; BMI 36.3
--- NOTE | 2022-10-25 15:59 | CTR_ITS ---
PROCEDURE INFORMATION: Exam: CT Head Without Contrast Exam date and time: 10/25/2022 4:12 PM Age: 62 years old Clinical indication: Injury or trauma; Fall; Bleeding/hemorrhage TECHNIQUE: Imaging protocol: Computed tomography of the head without contrast. Radiation optimization: All CT scans at this facility use at least one of these dose optimization techniques: automated exposure control; mA and/or kV adjustment per patient size (includes targeted exams where dose is matched to clinical indication); or iterative reconstruction. REPORTING DATA: Count of CT and Cardiac NM exams in prior 12 months: This patient has received [address] and 0 known cardiac nuclear medicine studies in the 12 months prior to the current study. COMPARISON: CT head wo con* [id number] 11/08/2017 4:48 PM RADIATION DOSE METRICS: Total DLP (mGy-cm): 1201.1 FINDINGS: Brain: No acute infarct. No hemorrhage. Unremarkable white matter for age. No mass effect. Cerebral ventricles: No ventriculomegaly. Paranasal sinuses: No significant inflammation. No fluid levels. Mastoid air cells: Visualized mastoid air cells are well aerated. Bones/joints: There are bilateral mildly displaced nasal bone fractures present with overlying soft tissue swelling of the nose. There is also a nondisplaced fracture suspected in the left lamina papyracea. Soft tissues: Right inferior frontal soft tissue hematoma with associated laceration injury. CT/CT head wo con* [id number] IMPRESSION: 1. No acute intracranial abnormality. 2. Bilateral nasal bone fractures which appear acute. Correlate with point tenderness. Inferior right frontal scalp laceration/hematoma also seen. A nondisplaced fracture is also suspected in the left lamina papyracea. This can be further evaluated with a dedicated facial bone CT for follow-up.
--- NOTE | 2022-10-25 15:59 | CTR_ITS ---
PROCEDURE INFORMATION: Exam: CT Cervical Spine Without Contrast Exam date and time: 10/25/2022 4:12 PM Age: 62 years old Clinical indication: Injury or trauma; Fall; Blunt trauma TECHNIQUE: Imaging protocol: Computed tomography of the cervical spine without contrast. Radiation optimization: All CT scans at this facility use at least one of these dose optimization techniques: automated exposure control; mA and/or kV adjustment per patient size (includes targeted exams where dose is matched to clinical indication); or iterative reconstruction. REPORTING DATA: Count of CT and Cardiac NM exams in prior 12 months: This patient has received [address] and 0 known cardiac nuclear medicine studies in the 12 months prior to the current study. COMPARISON: CR XR cervical spine fl/ex [id number] 03/26/2020 4:23 PM RADIATION DOSE METRICS: Total DLP (mGy-cm): 814 FINDINGS: Bones/joints: The cervical spine is straightened which may be positional or related to spasm. There is also mild left convex scoliosis versus positional change present. No acute fracture. Multilevel degenerative changes are present. Lungs: Emphysema is seen in the lung apices with possible posterior right upper lobe infiltrate. Soft tissues: Unremarkable. CT/CT cervical spin wo con* [id number] IMPRESSION: 1. No acute osseous injury. 2. Possible posterior right upper lobe infiltrate. Correlate clinically.
[2022-10-25] MEDS: tetanus-dipt-pertussis 0.5 mL SDV IM (16:29)
--- NOTE | 2022-10-25 16:46 | W.ED.FALL ---
HPI - Fall General: Chief Complaint: Fall Stated Complaint: fall face lace Time Seen by Provider: 10/25/22 15:39 Source: patient Mode of arrival: ambulatory History of Present Illness: 62-year-old female who is currently on Eliquis had a mechanical ground-level fall and she stumbled over a rock. She has a laceration on the right supraorbital ridge. There is no loss consciousness no vomiting she has a small abrasion on the hypothenar eminence of the right hand. Patient has a history of atrial fibrillation and is on Eliquis. complaint: fall Associated symptoms-after fall: Denies abdominal pain or chest pain Review of Systems Const: Denies: fever(s), chills, fatigue or malaise ENMT: Denies: throat pain, ear or mastoid pain, nasal discharge or nasal congestion Card: Denies: chest pain, edema, dyspnea on exertion or orthopnea Resp: Denies: dyspnea, productive cough or non-productive cough GI: Denies: abdominal pain, nausea, vomiting, hematemesis, coffee ground emesis, diarrhea, constipation, bloating, hematochezia or melena : Denies: flank pain, difficulty voiding, dysuria, urinary frequency or urinary urgency Skin/Breast: Denies: rash or pruritus PFSH ED PFSH: Medical History Atrial fibrillation Atrial flutter CHF (congestive heart failure) COPD (chronic obstructive pulmonary disease) Edema leg Emphysema/COPD Fibromyalgia GERD (gastroesophageal reflux disease) History of coronary angiogram Hypertension Hypotension Nonischemic cardiomyopathy Ejection fraction 20% Osteoarthritis Rheumatoid arthritis Sinus tachycardia Tobacco dependency Surgical History AICD (automatic cardioverter/defibrillator) present H/O: hysterectomy S/P tonsillectomy Family History Father Cancer Mother Cancer Sister Cancer Other CAD (coronary artery disease) Hyperlipidemia Hypertension Lung disease Denies family history of Psychiatric illness Social History Smoking and tobacco status: current every day smoker cigarettes Packs smoked per day: 2 Years cigarettes smoked: 50 [ Other cigarette details: Started at age 10 years] Alcohol intake: never Substance/Drug Use: never Physical Exam Const: COMMON NORMALS: no acute distress GENERAL APPEARANCE: cooperative and comfortable ORIENTATION/CONSCIOUSNESS: Yes awake, Yes oriented to person, Yes oriented to place and Yes oriented to time HENMT: COMMON NORMALS: normocephalic and hearing grossly normal bilaterally HEAD & SCALP: normocephalic OTHER: Swelling of the bridge of the nose a small laceration approximately half centimeter nongaping. Full-thickness laceration along the right supraorbital ridge. 2 inches in length (5 cm) Resp: COMMON NORMALS: normal respiratory effort, No retractions, No use of accessory muscles and clear to auscultation bilaterally AUSCULTATION: clear to auscultation bilaterally Cardio: COMMON NORMALS: regular rate, regular rhythm and No murmurs present (Cardio) RATE: regular rate RHYTHM: regular rhythm GI: COMMON NORMALS: Soft to palpation and No hepatosplenomegaly present AUSCULTATION: Yes normoactive bowel sounds PALPATION: Yes Soft to palpation, No Tenderness to palpation present (GI), No Guarding due to palpation present (GI) and Yes No hepatosplenomegaly present Extremity: COMMON NORMALS: normal to inspection, capillary refill normal, no clubbing, cyanosis or edema, no calf tenderness and no pedal edema Neuro: SENSORIUM/ORIENTATION: Yes oriented to person, Yes oriented to place and Yes oriented to time Skin: COMMON NORMALS: no rashes or lesions noted GENERAL SKIN EXAM: no rashes or lesions noted Procedures Laceration Laceration 1: Site: face (Right supraorbital ridge) Description: linear Depth: simple, single layer Local Anesthetic: lidocaine 1% Pre-repair: irrigated extensively Skin layer closed with: nylon Size (cm): 5-0 Number of sutures: 4 Technique: simple, interrupted Laceration 2: Site: face (Midline nose) Description: linear Depth: simple, single layer Skin layer closed with: other (Steri-Strips) Course Vital Signs: Vital signs: Vital Signs Temperature 97.7 F 10/25/22 14:40 Pulse Rate 83 10/25/22 14:40 Respiratory Rate 20 H 10/25/22 14:40 Blood Pressure 125/74 10/25/22 14:40 Pulse Oximetry 92 10/25/22 14:40 Oxygen Delivery Me thod Room Air 10/25/22 14:40 MDM - Fall Medical Decision Making Wound care instructions given. Sutures to be removed in 5 to 7 days at primary care doctor's office. Discussed the nasal bone fracture no obvious deformity at this time there is moderate swelling present follow-up with your primary care if there is any deformity once swelling resolves can be referred to ENT. Discussed CTA head and neck. No acute findings. Hold Eliquis x2 days then resume. Return to the emergency room if further problems. I have viewed your hand x-ray as negative. In one view there is a slight irregularity on the oblique but on the AP it is normal. Radiology felt that this represented a proximal fifth metacarpal shaft fracture that is nondisplaced. We will have patient return to the emergency room for splint placement and refer to orthopedics. Medical Records I reviewed the patient's medical records. Lab Data I reviewed the patient's lab results. Radiology Impressions Cervical Spine CT 10/25/22 15:59 IMPRESSION: 1. No acute osseous injury. 2. Possible posterior right upper lobe infiltrate. Correlate clinically. Head CT 10/25/22 15:59 IMPRESSION: 1. No acute intracranial abnormality. 2. Bilateral nasal bone fractures which appear acute. Correlate with point tenderness. Inferior right frontal scalp laceration/hematoma also seen. A nondisplaced fracture is also suspected in the left lamina papyracea. This can be further evaluated with a dedicated facial bone CT for follow-up. Nasal Bones X-Ray 10/25/22 16:47 IMPRESSION: Bilateral nasal bone fractures are redemonstrated. Chest X-Ray 10/25/22 17:41 IMPRESSION: Mild pulmonary vascular congestion. Hand X-Ray 10/25/22 17:43 IMPRESSION: There is soft tissue swelling corresponding with an oblique fracture of the proximal 5th metacarpal shaft. Discharge Plan Discharge Patient Disposition: Home Clinical Impression: Fall, Facial laceration, Closed fracture nasal bone Condition: Stable Prescriptions: No Action metoprolol succinate 100 mg tablet extended release 24 hr 100 mg PO DAILY Qty: 90 3RF Rx Instructions: Take with the 25mg to total 125mg daily ondansetron HCl 4 mg tablet 4 mg PO Q8H PRN (Reason: nausea and vomiting) metoprolol succinate 25 mg tablet extended release 24 hr 25 mg PO DAILY fluticasone propionate [Flonase Allergy Relief] 50 mcg/actuation spray,suspension 1 spray intranasal BID Qty: 18 3RF Rx Instructions: administer into each nostril albuterol sulfate 90 mcg/actuation HFA aerosol inhaler 2 puff INHALATION Q6H PRN (Reason: shortness of breath) Qty: 8.5 3RF ipratropium-albuterol 0.5 mg-3 mg(2.5 mg base)/3 mL solution for nebulization 3 ml inhalation Q6H PRN (Reason: wheezing) Qty: 90 3RF sacubitril-valsartan 97-103 mg tablet 1 tab PO BID Qty: 180 3RF hydroxychloroquine 200 mg tablet 200 mg PO BID Qty: 60 2RF Hold Instructions: Resume on 02/27/22. metolazone 2.5 mg tablet 2.5 mg PO DAILY PRN (Reason: weight gain) Qty: 30 0RF Rx Instructions: Take 30 minutes before morning lasix dose montelukast [Singulair] 10 mg tablet 10 mg PO DAILY Qty: 90 3RF gabapentin 400 mg capsule 400 mg PO TID PRN (Reason: nerve pain) Eliquis 5 mg tablet 5 mg PO BID Qty: 180 0RF Enbrel 50 mg/mL (1 mL) syringe 50 mg SUBCUT Q7D Rx Instructions: ON THURSDAY furosemide 40 mg tablet 40 mg PO DAILY Jardiance 10 mg tablet 10 mg PO DAILY Trelegy Ellipta 100-62.5-25 mcg blister with device 1 inh inhalation DAILY Discharge Orders: Discharge ED (Routine); Ordered 10/25/22 Ordered By: Brock Gutiérrez Referrals: Joni Duque MD [Primary Care Provider] - Discharge Diet: Usual diet Discharge Activity: Increase activity as tolerated Patient Instructions: Opioid Safety, Pain Management Coding Level of Care Code ED Eligibility Technician for Kishan Sandhu
--- NOTE | 2022-10-25 16:47 | XRR_ITS ---
PROCEDURE INFORMATION: Exam: XR Nasal Bones Exam date and time: 10/25/2022 5:13 PM Age: 62 years old Clinical indication: Injury or trauma; Fall; Blunt trauma (contusions or hematomas); Nose TECHNIQUE: Imaging protocol: XR of the nasal bones. Views: Minimum of 3 views COMPARISON: CT head wo con* [id number] 10/25/2022 4:12 PM FINDINGS: Sinuses: Well aerated. No opacification. Bones/joints: See Soft tissues finding. Soft tissues: Bilateral nasal bone fractures are again visualized similar to the comparison CT scan with overlying soft tissue swelling. The nondisplaced left lamina papyracea fracture seen on CT is not well visualized. XR/XR nasal bones min 3V [id number] IMPRESSION: Bilateral nasal bone fractures are redemonstrated.
--- NOTE | 2022-10-25 17:41 | XRR_ITS ---
PROCEDURE INFORMATION: Exam: XR Chest Exam date and time: 10/25/2022 5:47 PM Age: 62 years old Clinical indication: Cough and dyspnea; Additional info: Dyspnea/cough TECHNIQUE: Imaging protocol: Radiologic exam of the chest. Views: 1 view. COMPARISON: CR XR chest 1V portable [id number] 03/11/2022 10:27 AM FINDINGS: Tubes, catheters and devices: Stable left chest pacemaker. Lungs: Mild pulmonary vascular congestion. Pleural spaces: Unremarkable. No pleural effusion. No pneumothorax. Heart/Mediastinum: Stable heart size. Bones/joints: Stable bones. XR/XR chest 1V portable [id number] IMPRESSION: Mild pulmonary vascular congestion.
--- NOTE | 2022-10-25 17:43 | XRR_ITS ---
PROCEDURE INFORMATION: Exam: XR Right Hand Exam date and time: 10/25/2022 5:49 PM Age: 62 years old Clinical indication: Injury or trauma; Fall; Blunt trauma (contusions or hematomas); Hand; Right TECHNIQUE: Imaging protocol: Radiologic exam of the right hand. 3image(s) are provided. Views: 3 or more views. COMPARISON: CR XR hand RT 2V [id number] 03/26/2020 4:35 PM FINDINGS: Bones/joints: There are chronic advanced degenerative changes of the wrist level including radiocarpal and carpal level narrowing. There is associated sclerosis and subchondral cystic related change. This can also be seen with previous injury related sequela. There is an oblique fracture of the proximal shaft of the 5th metacarpal bone demonstrated in the interval. There is some chronic degenerative spurring of the distal interphalangeal joint levels. There is chronic degeneration also demonstrated of the 1st metacarpal phalangeal junction. No other interval displaced fracture or dislocation is appreciated. Soft tissues: There is some slight prominence of the soft tissues overall. No radiopaque foreign body or subcutaneous emphysema is appreciated. Other findings: No other significant interval changes are appreciated. XR/XR hand RT min 3V* [id number] IMPRESSION: There is soft tissue swelling corresponding with an oblique fracture of the proximal 5th metacarpal shaft.
== END 2022-10-25 18:49 | disposition home or self-care (01) ==
PROVIDERS: Emergency Provider Family Medicine; PCP Family Medicine
DX: S01.81XA Laceration without foreign body of other part of head, initial encounter (principal); S02.2XXA Fracture of nasal bones, initial encounter for closed fracture; W01.0XXA Fall on same level from slipping, tripping and stumbling without subsequent striking against object, initial encounter; S62.356A Nondisplaced fracture of shaft of fifth metacarpal bone, right hand, initial encounter for closed fracture; Z23 Encounter for immunization
CPT/HCPCS: 70160; 70450; 71045; 72125; 73130; 90471; 90715; 99284

== ENCOUNTER 2022-11-17 02:10 | Emergency (ER) | payer MEDICARE, MEDICAID, SELFPAY ==
[2022-11-17 02:44] VITALS: BP 145/79; PULSE 115; RESP 16; TEMP 36.9; O2SAT 98; BMI 40.3
[2022-11-17 03:20] VITALS: BP 145/79; PULSE 102; RESP 18; O2SAT 95
--- NOTE | 2022-11-17 03:32 | W.ED.SKABFB ---
HPI - Skin/Abscess/Foreign Bdy General: Chief complaint: Skin/Abscess/Foreign Body Stated complaint: Shingles\High BP\Chest Pain? Time Seen by Provider: 11/17/22 02:53 History of Present Illness: 62-year-old female presenting with a left-sided rash around her chest wall. It is very painful. It is weeping. She says its been there for 2 days. She also complains of mouth pain that is generalized mouth and tongue pain. She does not know if these are related. Associated symptoms: Reports chills; Deny fever(s) or vomiting Review of Systems Const: Reports: chills; Denies: fever(s) Eyes: Denies: change in vision ENMT: Reports: mouth pain and dry mouth; Denies: throat pain Card: Denies: chest pain or palpitations Resp: Denies: dyspnea or productive cough GI: Denies: abdominal pain or vomiting Musc: Reports: back pain Skin/Breast: Reports: rash and skin tenderness PFS ED PFSH: Medical History Atrial fibrillation Atrial flutter CHF (congestive heart failure) COPD (chronic obstructive pulmonary disease) Edema leg Emphysema/COPD Fibromyalgia GERD (gastroesophageal reflux disease) History of coronary angiogram Hypertension Hypotension Nonischemic cardiomyopathy Ejection fraction 20% Osteoarthritis Rheumatoid arthritis Sinus tachycardia Tobacco dependency Surgical History AICD (automatic cardioverter/defibrillator) present H/O: hysterectomy S/P tonsillectomy Family History Father Cancer Mother Cancer Sister Cancer Other CAD (coronary artery disease) Hyperlipidemia Hypertension Lung disease Denies family history of Psychiatric illness Social History Smoking and tobacco status: current every day smoker cigarettes Packs smoked per day: 2 Years cigarettes smoked: 50 [ Other cigarette details: Started at age 10 years] Alcohol intake: never Substance/Drug Use: never Physical Exam Const: COMMON NORMALS: no acute distress GENERAL APPEARANCE: frail appearing; not ill appearing NUTRITIONAL APPEARANCE: obese HENMT: COMMON NORMALS: normocephalic, atraumatic and Normal external nose present HEAD & SCALP: normocephalic and atraumatic FACE & SINUS: normal facial exam NOSE: Normal external nose present MOUTH: other (Mucositis/stomatitis present) Eye: COMMON NORMALS: Equal, round and reactive pupils present and EOMs intact bilaterally PUPIL: Yes Equal, round and reactive pupils present Neck/C-Spine: GENERAL: Yes trachea midline Chest: CHEST: Yes Symmetrical chest wall rise Resp: COMMON NORMALS: normal respiratory effort, No retractions, No use of accessory muscles and clear to auscultation bilaterally AUSCULTATION: clear to auscultation bilaterally Cardio: COMMON NORMALS: regular rate and regular rhythm RATE: regular rate RHYTHM: regular rhythm Neuro: ROYCE COMA SCALE: document GCS findings Royce coma scale eye opening: Spontaneous [place] coma scale verbal response: Orientated [place] coma scale motor response: Obey commands [place] coma scale total score: 15 Skin: NARRATIVE SKIN EXAM: Exquisitely tender vesicular weeping rash present to the left mid chest. Course Vital Signs: Vital signs: Vital Signs Temperature 98.5 F 11/17/22 02:44 Pulse Rate 102 H 11/17/22 03:20 Respiratory Rate 18 11/17/22 03:20 Blood Pressure 145/79 11/17/22 03:20 Pulse Oximetry 95 11/17/22 03:20 Oxygen Delivery Me thod Room Air 11/17/22 03:20 MDM - Skin/Abscess/Foreign Bdy Medicial Decision Making This patient has clear varicella-zoster. We will treat with valacyclovir since its less than 2 days old. We will also treat pain with hydrocodone and carbamazepine. Instructions given. On exam the patient does have mucositis/stomatitis, for which she is told to use liquid Benadryl and Maalox as a Magic mouthwash type solution. No radiology studies performed this visit Discharge Plan Discharge Patient Disposition: Home Clinical Impression: Varicella zoster, Stomatitis and mucositis Condition: Stable Prescriptions: New carbamazepine 200 mg tablet 200 mg PO BID Qty: 20 0RF hydrocodone-acetaminophen 5-325 mg tablet 1 tab PO Q8H PRN (Reason: pain) Qty: 10 0RF Valtrex 1 gram tablet 1,000 mg PO Q8H 7 Days Qty: 21 0RF No Action metoprolol succinate 100 mg tablet extended release 24 hr 100 mg PO DAILY Qty: 90 3RF Rx Instructions: Take with the 25mg to total 125mg daily ondansetron HCl 4 mg tablet 4 mg PO Q8H PRN (Reason: nausea and vomiting) metoprolol succinate 25 mg tablet extended release 24 hr 25 mg PO DAILY fluticasone propionate [Flonase Allergy Relief] 50 mcg/actuation spray,suspension 1 spray intranasal BID Qty: 18 3RF Rx Instructions: administer into each nostril albuterol sulfate 90 mcg/actuation HFA aerosol inhaler 2 puff INHALATION Q6H PRN (Reason: shortness of breath) Qty: 8.5 3RF ipratropium-albuterol 0.5 mg-3 mg(2.5 mg base)/3 mL solution for nebulization 3 ml inhalation Q6H PRN (Reason: wheezing) Qty: 90 3RF sacubitril-valsartan 97-103 mg tablet 1 tab PO BID Qty: 180 3RF hydroxychloroquine 200 mg tablet 200 mg PO BID Qty: 60 2RF Hold Instructions: Resume on 02/27/22. metolazone 2.5 mg tablet 2.5 mg PO DAILY PRN (Reason: weight gain) Qty: 30 0RF Rx Instructions: Take 30 minutes before morning lasix dose montelukast [Singulair] 10 mg tablet 10 mg PO DAILY Qty: 90 3RF gabapentin 400 mg capsule 400 mg PO TID PRN (Reason: nerve pain) Eliquis 5 mg tablet 5 mg PO BID Qty: 180 0RF Enbrel 50 mg/mL (1 mL) syringe 50 mg SUBCUT Q7D Rx Instructions: ON THURSDAY furosemide 40 mg tablet 40 mg PO DAILY Jardiance 10 mg tablet 10 mg PO DAILY Trelegy Ellipta 100-62.5-25 mcg blister with device 1 inh inhalation DAILY Discharge Orders: Discharge ED (Routine); Ordered 11/17/22 Ordered By: Bong Raymundo Referrals: Joni Duque MD [Primary Care Provider] - 1-3 days Patient Instructions: Shingles (ED), Oral Mucositis (ED), Opioid Safety, Pain Management Activity Restrictions/Additional Instructions: Medications as directed. Take the carbamazepine twice daily. Pain medication as needed for more severe pain. For your mouth, you may use 5 mL (1 teaspoon) of children's Benadryl combined with 5 mL of Maalox to swish and swallow which may help. Return for fever despite 2 days of antivirals, worsening rash despite 2 days of antivirals, any other concerning symptoms. Follow-up with your doctor this week. 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
[2022-11-17 03:39] VITALS: RESP 22; O2SAT 91
[2022-11-17] MEDS: oxyCODONE-APAP 5-325 mg Tablet 1 TAB PO (03:39)
[2022-11-17] MEDS: valACYclovir 1,000 mg Tablet 1000 MG PO (03:40)
[2022-11-17] MEDS: carBAMazepine 200 mg Tablet PO (03:40)
[2022-11-17 03:48] VITALS: BP 145/79; PULSE 127; RESP 22; O2SAT 93
== END 2022-11-17 03:50 | disposition home or self-care (01) ==
PROVIDERS: Emergency Provider Emergency Medicine; PCP Family Medicine
DX: B01.9 Varicella without complication (principal); K12.1 Other forms of stomatitis; K12.30 Oral mucositis (ulcerative), unspecified; Z79.01 Long term (current) use of anticoagulants; F17.210 Nicotine dependence, cigarettes, uncomplicated; I11.0 Hypertensive heart disease with heart failure; I50.9 Heart failure, unspecified; J44.9 Chronic obstructive pulmonary disease, unspecified; Z95.810 Presence of automatic (implantable) cardiac defibrillator
CPT/HCPCS: 99283

== ENCOUNTER 2022-11-21 12:19 | Inpatient (IN) | payer MEDICARE, MEDICAID, SELFPAY ==
[2022-11-21] VITALS (26 sets, daily range): BP systolic 94–160; BP diastolic 51–109; PULSE 64–172; RESP 20–35; TEMP 36.9–37; O2SAT 92–100; BMI 39.5
--- NOTE | 2022-11-21 16:20 | XRR_ITS ---
PROCEDURE INFORMATION: Exam: XR Chest Exam date and time: 11/21/2022 5:13 PM Age: 62 years old Clinical indication: Cardiovascular condition or disease and lung condition and disease; Congestive heart failure (chf); Other: N/a; Copd and emphysema; Dyspnea and shortness of breath; Additional info: Dyspnea/cough TECHNIQUE: Imaging protocol: Radiologic exam of the chest. Views: 1 view. COMPARISON: CR (CHEST, ) 10/25/2022 5:47 PM FINDINGS: Tubes, catheters and devices: Intact Single lead left subclavian pacemaker. Pacemaker pad on the left chest wall. Lungs: Unremarkable. No consolidation. Pleural spaces: Unremarkable. No pleural effusion. No pneumothorax. Heart/Mediastinum: Unremarkable. No cardiomegaly. Bones/joints: Old right rib fractures. No acute fracture. XR/XR chest 1V portable [id number] IMPRESSION: No acute findings.
--- NOTE | 2022-11-21 16:21 | ECG_ITS ---
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 Measurements Intervals [place] Rate: 172 P: 0 RI: 0 QRS: 59 QRSD: 113 T: 164 QT: 272 QTc: 461 Interpretive Statements SUPRAVENTRICULAR TACHYCARDIA MODERATE INTRAVENTRICULAR CONDUCTION DELAY [110+ ms QRS DURATION] NONSPECIFIC ST & T-WAVE ABNORMALITY CRITICAL TEST RESULT INTERPRETATION BASED ON A DEFAULT AGE OF 40 YEARS Compared to ECG 02/21/2022 04:34:23 Sinus rhythm no longer present Possible ischemia no longer present T-wave abnormality still present Electronically Signed On 11-21-2022 19:15:47 CDT by Dangelo Florez M.D. [id number]
[2022-11-21 16:31] LABS: Basophils % 0.4 %; Eosinophils # 0.1 10^3/uL (0.0-0.8); Eosinophils % 0.7 %; Hematocrit 36.5 % (36-47); Lymphocytes # 2.3 10^3/uL (0.8-4.8); Lymphocytes % 27.1 %; Mean Corpuscular HGB Conc 32.9 g/dL (30-55); Mean Corpuscular Hemoglobin 33.6 pg (27-33); Mean Corpuscular Volume 102.2 fl (85-98); Mean Platelet Volume 10.9 fL (7.4-10.4); Monocytes # 0.7 10^3/uL (0.2-0.9); Monocytes % 8.6 %; Neutrophils % 63.1 %; Nucleated Red Blood Cells % 0 %; Platelet Count 103 10^3/cmm (157-399); Red Blood Count 3.57 10^6/uL (3.85-5.65); Red Cell Distribution Width 13.1 % (12.1-15.1); White Blood Count 8.56 10^3/uL (3.29-11.43)
[2022-11-21] MEDS: adenosine 3 mg/mL SDV 2mL 6 MG IVP (16:45)
[2022-11-21] MEDS: adenosine 3 mg/mL SDV 2mL 12 MG IVP (16:45)
--- NOTE | 2022-11-21 16:45 | W.ED.SKABFB ---
HPI - Skin/Abscess/Foreign Bdy General: Chief complaint: Skin/Abscess/Foreign Body Stated complaint: sent by sonali/chanelle Time Seen by Provider: 11/21/22 16:05 Source: patient Mode of arrival: ambulatory History of Present Illness: 62-year-old female presents to the emergency room her initial complaint was persistent varicella-zoster that was causing severe pain. She has a history of A-fib flutter and severe cardiomyopathy with an EF of 20 to 25% after she came to the room she had been doing fine and then suddenly began to have a rapid heart rate she had palpitations worsening shortness of breath a heart rate on the rhythm monitor that was up into the 170s and persistent. The patient was given adenosine which showed underlying a flutter.. Patient was noted to have significant shortness of breath during this and did require initiation of oxygen. She is having mild chest discomfort as well. As to her zoster she been seen earlier in the week and started on valacyclovir which she did not tolerate well so has not been taking states she still having severe pain in the area of zoster on the left side extending around the back and underneath the left breast at the midline of the abdomen. complaint: rash Onset (ago): minute(s) Location: chest and back Severity: moderate Quality: burning Pain Consistency: constant Relieving factors: none Exacerbating factors: none Associated symptoms: Deny arthralgias, chills, cough, fever(s), itching, myalgias, nausea, rigidity, short of breath or vomiting Review of Systems Const: Reports: fatigue and malaise; Denies: fever(s) or chills ENMT: Denies: nasal congestion Card: Reports: palpitations; Denies: chest pain, edema, dyspnea on exertion or orthopnea Resp: Denies: dyspnea, productive cough or non-productive cough GI: Denies: abdominal pain, nausea or vomiting : Denies: flank pain, difficulty voiding, dysuria, urinary frequency or urinary urgency Skin/Breast: Reports: rash, pruritus, erythema, skin pain and skin tenderness [facility] ED PFSH: Medical History Atrial fibrillation Atrial flutter CHF (congestive heart failure) COPD (chronic obstructive pulmonary disease) Edema leg Emphysema/COPD Fibromyalgia GERD (gastroesophageal reflux disease) History of coronary angiogram Hypertension Hypotension Nonischemic cardiomyopathy Ejection fraction 20% Osteoarthritis Rheumatoid arthritis Sinus tachycardia Tobacco dependency Surgical History AICD (automatic cardioverter/defibrillator) present H/O: hysterectomy S/P tonsillectomy Family History Father Cancer Mother Cancer Sister Cancer Other CAD (coronary artery disease) Hyperlipidemia Hypertension Lung disease Denies family history of Psychiatric illness Social History Smoking and tobacco status: current every day smoker cigarettes Packs smoked per day: 2 Years cigarettes smoked: 50 [ Other cigarette details: Started at age 10 years] Alcohol intake: never Substance/Drug Use: never Physical Exam Const: GENERAL APPEARANCE: cooperative and comfortable ORIENTATION/CONSCIOUSNESS: Yes awake, Yes oriented to person, Yes oriented to place and Yes oriented to time HENMT: COMMON NORMALS: normocephalic, atraumatic and hearing grossly normal bilaterally HEAD & SCALP: normocephalic and atraumatic Resp: COMMON NORMALS: normal respiratory effort, No retractions, No use of accessory muscles and clear to auscultation bilaterally AUSCULTATION: clear to auscultation bilaterally Cardio: RATE: tachycardic RHYTHM: abnormal rhythm GI: COMMON NORMALS: Soft to palpation and No hepatosplenomegaly present AUSCULTATION: Yes normoactive bowel sounds PALPATION: Yes Soft to palpation, No Tenderness to palpation present (GI), No Guarding due to palpation present (GI) and Yes No hepatosplenomegaly present Extremity: COMMON NORMALS: normal to inspection, capillary refill normal and no calf tenderness GENERAL: Yes edema Neuro: SENSORIUM/ORIENTATION: Yes oriented to person, Yes oriented to place and Yes oriented to time Skin: OTHER: Varicella lesion extending on the left flank inframammary no signs of secondary infection she will we being vesicles most have the removed to have mucousy eschars at the base Course Vital Signs: Vital signs: Vital Signs Temperature 98.5 F 11/23/22 08:00 Pulse Rate 83 11/23/22 14:57 Respiratory Rate 20 H 11/23/22 14:57 Blood Pressure 120/76 11/23/22 14:00 Pulse Oximetry 100 11/23/22 17:00 Oxygen Delivery Me thod Nasal Cannula 11/23/22 14:57 Oxygen Flow Rate 2 11/23/22 14:57 Fraction of Inspir ed Oxygen 24 11/23/22 04:00 MDM - Skin/Abscess/Foreign Bdy Medicial Decision Making Patient initially presents complaining of persistent pain with her zoster. However when they got her to the room and hooked her up she suddenly began planing of shortness of breath on the monitor she was found to be in tachycardic arrhythmia. It appears to be SVT she has previously had this in the past and was actually a flutter and required cardioversion under sedation. We gave her adenosine at 6 mg she had no real change in her rate at 12 mg were able to show enough slowing to identify and confirm underlying atrial flutter. Patient was then started on Cardizem which did slow her rate adequately. Blood pressure became mildly hypotensive she given small fluid bolus. Will admit for a flutter with rapid response poor control. Discussed with hospitalist orders written Medical Records I reviewed the patient's medical records. Lab Data I reviewed the patient's lab results. 11/23/22 05:52 11/22/22 04:30 Radiology Impressions Chest X-Ray 11/21/22 16:20 IMPRESSION: No acute findings. KUB X-Ray 11/21/22 18:28 IMPRESSION: No acute findings. Abdomen/Pelvis CT 11/21/22 18:29 IMPRESSION: 1. No bowel obstruction or inflammatory process associated with the bowel. 2. No free air or significant free fluid in the abdomen or pelvis. 3. The appendix is not visualized but there are no secondary signs of acute appendicitis. Laboratory Results WBC 8.56 10^3/uL (3.29-11.43) 11/21/22 16:21 RBC 3.57 10^6/uL (3.85-5.65) L 11/21/22 16:21 Hgb 12.00 g/dL (11.27-16.99) 11/21/22 16:21 Hct 36.5 % (36-47) 11/21/22 16:21 MCV 102.2 fl (85-98) H 11/21/22 16:21 MCH 33.6 pg (27-33) H 11/21/22 16:21 MCHC 32.9 g/dL (30-55) 11/21/22 16:21 RDW 13.1 % (12.1-15.1) 11/21/22 16:21 Plt Count 103 10^3/cmm (157-399) L 11/21/22 16:21 MPV 10.9 fL (7.4-10.4) H 11/21/22 16:21 Neut % (Auto) 63.1 % 11/21/22 16:21 Lymph % (Auto) 27.1 % 11/21/22 16:21 Bertie % (Auto) 8.6 % 11/21/22 16:21 Eos % (Auto) 0.7 % 11/21/22 16:21 Baso % (Auto) 0.4 % 11/21/22 16:21 Neut # (Auto) 5.40 10^3/uL (1.8-7.7) 11/21/22 16:21 Lymph # (Auto) 2.3 10^3/uL (0.8-4.8) 11/21/22 16:21 Bertie # (Auto) 0.7 10^3/uL (0.2-0.9) 11/21/22 16:21 Eos # (Auto) 0.1 10^3/uL (0.0-0.8) 11/21/22 16:21 Baso # (Auto) 0.0 10^3/uL (0.0-0.1) 11/21/22 16:21 Nucleated RBC % (auto) 0 % 11/21/22 16:21 Nucleated RBCs # 0.0 /100WBC 11/21/22 16:21 Sodium 138 mmol/L (136-145) 11/21/22 16:21 Potassium 4.7 mmol/L (3.5-5.1) 11/21/22 16:21 Chloride 102 mmol/L (98-107) 11/21/22 16:21 Carbon Dioxide 28 mmol/L (22-29) 11/21/22 16:21 Anion Gap 12.7 (5-19) 11/21/22 16:21 BUN 17 mg/dL (8-23) 11/21/22 16:21 Creatinine 1.0 mg/dL (0.5-0.9) H 11/21/22 16:21 GFR Calculation 55.8 mL/min (90-130) L 11/21/22 16:21 Glucose 106 mg/dL (65-115) 11/21/22 16:21 Calculated Osmolality 288 mOsm/kg (285-295) 11/21/22 16:21 Lactic Acid 1.7 mmol/L (0.5-2.2) 11/21/22 16:21 Calcium 8.7 mg/dL (8.5-10.5) 11/21/22 16:21 Total Bilirubin 0.3 mg/dL (0.15-1.2) 11/21/22 16:21 AST 22 U/L (0-32) 11/21/22 16:21 ALT 16 U/L (0-33) 11/21/22 16:21 Alkaline Phosphatase 191 U/L (35-105) H 11/21/22 16:21 Troponin T Baseline 18 ng/L (0-10) H 11/21/22 16:21 NT-Pro-B Natriuret Pep 7580 pg/mL (0-125) H 11/21/22 16:21 Total Protein 7.1 g/dL (6.6-8.7) 11/21/22 16:21 Albumin 3.6 g/dL (3.5-5.2) 11/21/22 16:21 Globulin 3.5 g/dL (1.3-4.6) 11/21/22 16:21 Procalcitonin 0.09 ng/mL (0-0.5) 11/21/22 16:21 All radiology interpretation(s) finalized by discharge Critical Care Time Critical Care Time: Total Critical Care Time: 40 Attestation: The high probability of a clinically significant, sudden or life threatening deterioration of the patient's cardiovascular system(s) required my full and direct attention, intervention and personal management. The critical care time is as shown. This time is in addition to time spent performing any reported procedures but includes the following: [x] Data and vital sign review and interpretation [x] Patient assessment, examination and intervention [x] Documentation [x] Medication orders and management Discharge Plan Discharge Patient Disposition: Admitted As Inpatient Admit Provider: Chai Lombardi Clinical Impression: Atrial fibrillation with rapid ventricular response, Congestive heart failure with LV diastolic dysfunction, NYHA class 2, Disseminated herpes zoster, Nonischemic cardiomyopathy Condition: Stable Coding Level of Care Code 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
[2022-11-21] MEDS: dilTIAZem 5 mg/mL SDV 5 mL 20 MG IVP (16:46)
[2022-11-21] MEDS: dilTIAZem 100 MG in sodium chloride 0.9% (add-van) 100 ML IV (16:46)
[2022-11-21 16:57] LABS: Alanine Aminotransferase 16 U/L (0-33); Albumin Level 3.6 g/dL (3.5-5.2); Alkaline Phosphatase 191 U/L (35-105); Anion Gap 12.7 (5-19); Aspartate Amino Transferase 22 U/L (0-32); Blood Urea Nitrogen 17 mg/dL (8-23); Calcium 8.7 mg/dL (8.5-10.5); Carbon Dioxide 28 mmol/L (22-29); Chloride 102 mmol/L (98-107); Globulin 3.5 g/dL (1.3-4.6); Glomerular Filtration Rate 55.8 mL/min (90-130); Glucose 106 mg/dL (65-115); NT Pro B Type Natriuretic Pept 7580 pg/mL (0-125); Osmolality Calculated 288 mOsm/kg (285-295); Potassium 4.7 mmol/L (3.5-5.1); Sodium 138 mmol/L (136-145); Total Bilirubin 0.3 mg/dL (0.15-1.2); Total Protein 7.1 g/dL (6.6-8.7)
[2022-11-21 17:38] LABS: Troponin(5th) Baseline 18 ng/L (0-10)
--- NOTE | 2022-11-21 17:55 | ECG_ITS ---
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 Measurements Intervals [place] Rate: 130 P: 0 MI: 0 QRS: 126 QRSD: 117 T: 35 QT: 312 QTc: 459 Interpretive Statements ATRIAL FIBRILLATION WITH RAPID VENTRICULAR RESPONSE POSSIBLE RIGHT VENTRICULAR HYPERTROPHY [SOME/ALL OF: PROMINENT R IN V1, LATE TRANSITION, RAD, LEVY, SSS] LATERAL MYOCARDIAL INFARCTION , OF INDETERMINATE AGE [40+ ms Q WAVE AND/OR ST/T ABNORMALITY IN I/aVL/V5/V6] Compared to ECG 11/21/2022 16:15:47 Myocardial infarct finding now present Supraventricular tachycardia no longer present Intraventricular conduction delay no longer present T-wave abnormality no longer present Electronically Signed On 11-21-2022 19:16:09 CDT by Dangelo Florez M.D. [id number]
--- NOTE | 2022-11-21 17:58 | PM.HP ---
Providers/Chief Complaint Admitting Physician: Chai Lombardi MD Primary Care Provider: Joni Duque MD Chief Complaint: sent by sonali/chanelle History of Present Illness Shana Roy is a 62 year old female with a past medical history of nonischemic cardiomyopathy, history of AICD, history of systolic EF with EF of 25%, history of COPD, systolic diastolic CHF, who presents [facility] due to nausea, vomiting, inability keep down liquids for the last 48 hours. She tells me that about a week ago she was diagnosed with a left leg pain, they thought it was initially back pain but then she started develop a vesicular rash that started to be painful and started to drain so she was diagnosed with shingles and was started on Valtrex. She tells me that shingles rash persists, she has pain in the location notes spreading from the left flank, to her left leg, no visual deficits, no ear pain, no ear ringing, no vesicular rashes in her mouth, she tells me that due to nausea and vomiting she was unable to keep down liquids for the last 48 hours, unable to keep down her p.o. medication she has not taken her Eliquis, oral her medication such as metoprolol in the last 48 hours. In the emergency room, she was found to have SVT, given adeno card, rhythm then showing atrial flutter, placed on amiodarone drip, remains in atrial flutter, with heart rates in the 140s, blood pressures are normotensive but on the softer end, she is on 3 L, saturating in the high 90s, she tells me she uses oxygen but only at rest, she has audible wheezing in all lung diaz, had lower extremity edema she reports she has not taken her Lasix, nor has she taken her Entresto, she is immunocompromise as she is on Enbrel, and Plaquenil, for her rheumatoid arthritis Review of Systems Const: Reports: fever(s) and chills Eyes: Denies: change in vision ENMT: Denies: throat pain Card: Reports: irregular heart rhythm and edema; Denies: chest pain Resp: Reports: dyspnea; Denies: non-productive cough GI: Reports: abdominal pain and nausea : Reports: flank pain Musc: Denies: neck pain Skin/Breast: Reports: rash Neuro: Denies: headache(s), numbness in extremities or weakness in extremities Psych: Denies: anxiety Endo: Denies: polyuria Medications/Allergies Home Medications Medication Instructions Recorded Confirmed Last Taken Type gabapentin 400 mg capsule 400 mg PO TID PRN nerve pain 11/14/19 11/20/22 10/25/22 History hydroxychloroquine 200 mg tablet 200 mg PO BID #60 tabs 02/18/21 11/20/22 10/25/22 Rx metolazone 2.5 mg tablet 2.5 mg PO DAILY PRN weight gain 03/21/21 11/20/22 10/25/22 Rx #30 tabs metoprolol succinate 100 mg 100 mg PO DAILY #90 tabs 03/26/21 11/20/22 10/25/22 Rx tablet,extended release 24 hr fluticasone propionate 50 1 spray intranasal BID #18 mL 12/20/21 11/20/22 03/10/22 Rx mcg/actuation nasal spray,suspension (Flonase Allergy Relief) metoprolol succinate 25 mg 25 mg PO DAILY take along with 12/20/21 11/20/22 10/25/22 History tablet,extended release 24 hr 100mg tab every day ondansetron HCl 4 mg tablet 4 mg PO Q8H PRN nausea and vomiting 12/20/21 11/20/22 03/09/22 History apixaban 5 mg tablet (Eliquis) 5 mg PO BID #180 tabs 02/22/22 11/20/22 10/25/22 Rx albuterol sulfate 90 mcg/actuation 2 puff inhalation Q6H PRN 03/21/22 11/20/22 Unknown Rx aerosol inhaler shortness of breath #8.5 grams ipratropium 0.5 mg-albuterol 3 mg 3 ml inhalation Q6H PRN wheezing 07/22/22 11/20/22 Unknown Rx (2.5 mg base)/3 mL nebulization #90 mL soln sacubitril 97 mg-valsartan 103 mg 1 tab PO BID #180 tabs 07/22/22 11/20/22 10/25/22 Rx tablet montelukast 10 mg tablet 10 mg PO DAILY #90 tabs 10/16/22 11/20/22 10/25/22 Rx (Singulair) empagliflozin 10 mg tablet 10 mg PO DAILY 10/25/22 11/20/22 10/25/22 History (Jardiance) etanercept 50 mg/mL (1 mL) 50 mg SUBCUT Q7D 10/25/22 11/20/22 Unknown History subcutaneous syringe (Enbrel) fluticasone fur. 100 mcg-umeclid 1 inh inhalation DAILY 10/25/22 11/20/22 Unknown History 62.5 mcg-vilant 25 mcg inhalat.powder (Trelegy Ellipta) furosemide 40 mg tablet 40 mg PO DAILY 10/25/22 11/20/22 10/25/22 History carbamazepine 200 mg tablet 200 mg PO BID #20 tabs 11/17/22 11/20/22 Unknown Rx hydrocodone 5 mg-acetaminophen 325 1 tab PO Q8H PRN pain #10 tabs 11/17/22 11/20/22 Unknown Rx mg tablet valacyclovir 1 gram tablet 1,000 mg PO Q8H 7 days #21 tabs 11/17/22 11/20/22 Unknown Rx (Valtrex) Allergies Allergy/AdvReac Type Severity Reaction Status Date / Time dronedarone Allergy Severe rash, Verified 11/20/22 08:18 swelling doxacurium Allergy HIVES,RASH Verified 11/20/22 08:18 sulfamethoxazole Allergy ALGY-Rash Verified 11/20/22 08:18 [From Bactrim] trimethoprim [From Bactrim] Allergy ALGY-Rash Verified 11/20/22 08:18 PFSH Acute PFSH: Medical History Atrial fibrillation Atrial flutter CHF (congestive heart failure) COPD (chronic obstructive pulmonary disease) Edema leg Emphysema/COPD Fibromyalgia GERD (gastroesophageal reflux disease) History of coronary angiogram Hypertension Hypotension Nonischemic cardiomyopathy Ejection fraction 20% Osteoarthritis Rheumatoid arthritis Sinus tachycardia Tobacco dependency Surgical History AICD (automatic cardioverter/defibrillator) present H/O: hysterectomy S/P tonsillectomy Family History Father Cancer Mother Cancer Sister Cancer Other CAD (coronary artery disease) Hyperlipidemia Hypertension Lung disease Denies family history of Psychiatric illness Social History Smoking and tobacco status: current every day smoker cigarettes Packs smoked per day: 2 Years cigarettes smoked: 50 [ Other cigarette details: Started at age 10 years] Alcohol intake: never Substance/Drug Use: never Vitals/I&O/Wt Last Vital Signs Temp 98.6 F 11/21/22 12:47 Pulse 131 H 11/21/22 17:06 Resp 31 H 11/21/22 17:06 BP 114/83 11/21/22 17:06 Pulse Ox 92 11/21/22 17:06 O2 Del Method Room Air 11/21/22 17:06 11/21/22 11/21/22 11/21/22 06:59 14:59 22:59 Intake Total 7.292 / 7.292 Balance 7.292 / 7.292 Weight last 48 hrs Weight 111.13 kg Physical Exam Const: COMMON NORMALS: no acute distress and patient oriented x3 GENERAL APPEARANCE: cooperative, well kempt and well developed HENMT: COMMON NORMALS: normocephalic and Normal external nose present HEAD & SCALP: normocephalic FACE & SINUS: normal facial exam NOSE: Normal external nose present Eye: COMMON NORMALS: Equal, round and reactive pupils present, EOMs intact bilaterally, conjunctivae normal and no scleral icterus CONJUNCTIVA: Yes conjunctivae normal PUPIL: Yes Equal, round and reactive pupils present Neck/C-Spine: COMMON NORMALS: full ROM, no lymphadenopathy, no meningeal signs and No carotid bruits THYROID: Thyroid normal Lymph: LYMPHATIC: no lymphadenopathy noted Chest: COMMONS NORMALS: normal inspection of the chest Resp: COMMON NORMALS: normal respiratory effort, No retractions and No use of accessory muscles AUSCULTATION: crackles and wheezes Cardio: COMMON NORMALS: no JVD, S1 normal heart sound present, S2 normal heart sound present, No murmurs present (Cardio) and Peripheral pulses 2+ throughout RATE: tachycardic RHYTHM: abnormal rhythm irregularly irregular HEART SOUNDS: S1 normal heart sound present and S2 normal heart sound present PERIPHERAL PULSES: Peripheral pulses 2+ throughout GI: COMMON NORMALS: Normal to inspection, nondistended, normoactive bowel sounds present, Soft to palpation, non-tender and No hepatosplenomegaly present PALPATION: Yes Soft to palpation : BLADDER/KIDNEY EXAM: Yes no CVA tenderness Back/Pelvis: COMMON NORMALS: no CVA tenderness Extremity: COMMON NORMALS: normal to inspection, full ROM and no calf tenderness Neuro: COMMON NORMALS: patient oriented x3, CN's II-XII intact bilaterally, moves all extremities, no focal motor deficits and no sensory deficits noted MENINGEAL SIGNS: Yes no meningeal signs Psych: COMMON NORMALS: mental status grossly normal, Normal thought process present, cooperative and speech normal APPEARANCE: Yes well kempt SPEECH: Yes normal speech THOUGHT PROCESS: Normal thought process present Skin: COMMON NORMALS: turgor normal and no jaundice NARRATIVE SKIN EXAM: 2+ pitting edema Vesicular rash, crusted over, left flank, irregular borders, measuring 5 x 10 cm, with surrounding cellulitis, also on the left leg GENERAL SKIN EXAM: turgor normal Data 11/21/22 16:21 11/21/22 16:21 A&P Assessment and plan (1) Atrial fibrillation with rapid ventricular response: (2) Disseminated herpes zoster: (3) Cellulitis: (4) Systolic CHF, acute on chronic: (5) Varicella zoster: (6) AICD (automatic cardioverter/defibrillator) present: (7) Tobacco dependency: (8) Congestive heart failure with LV diastolic dysfunction, NYHA class 2: Plan Disseminated shingles -Immunocompromise state, on Enbrel, on Plaquenil -Contact precautions, airborne precautions -Continue Tegretol, Tegretol level -Start IV acyclovir -Morphine for pain -We will consider gabapentin based on clinical progress -Keep area covered, Atrial flutter/ atrial fibrillation with rapid ventricular response -Currently on Cardizem drip, still in the 140s, at 10 -Stop Cardizem drip, switch to amiodarone drip with amiodarone bolus -Continue Eliquis -TSH, mag, cardiac echo Systolic CHF exacerbation -Likely due to inability to take her Entresto, Lasix, her atrial fibrillation -Lasix 40 IV every 24 hours -Place Morris catheter Chronic respiratory failure -With underlying CHF exacerbation -With underlying A-fib with RVR -Start BiPAP Ordered UA, CRP, Pro-Luke, TSH, mag, troponin series nausea, vomiting, Full code Eliquis for DVT prophylaxis Attestations Medical Necessity Statement*: Patient requires hospitalization, inpatient, greater than 2 midnights, for A-fib with RVR, systolic CHF exacerbation, fluid overload, disseminated shingles, cellulitis, immunocompromise state Diagnoses Atrial fibrillation with rapid ventricular response I48.91 Disseminated herpes zoster B02.7 Cellulitis L03.90 Systolic CHF, acute on chronic I50.23 Varicella zoster B02.9 AICD (automatic cardioverter/defibrillator) present Z95.810 Tobacco dependency F17.200 Congestive heart failure with LV diastolic dysfunction, NYHA class 2 I50.30
[2022-11-21 18:21] LABS: Lactic Sepsis W/Reflex 1.7 mmol/L (0.5-2.2)
[2022-11-21 18:22] LABS: ABG PCO2 37.1 mmHg (35-45); ABG PH Result 7.44 (7.35-7.45); Arterial Blood Gas Hematocrit 36.5 % (37-47); Base Excess ABG 1.2 mmol/L (-2.0-2.0); Blood Gas Allen Test Pos; Blood Gas Operator Identificat CAK; Blood Gas Sample Site Radial, left; Blood Gas Sample Type Arterial; HCO3 ABG 25.2 mmol/L (22-26); Oxygen Device ROOM AIR; PO2 ABG 67.9 mmHg (80.0-100.0)
[2022-11-21 18:28] LABS: Procalcitonin 0.09 ng/mL (0-0.5)
--- NOTE | 2022-11-21 18:28 | XRR_ITS ---
PROCEDURE INFORMATION: Exam: XR Abdomen Exam date and time: 11/22/2022 10:30 AM Age: 62 years old Clinical indication: Nausea and vomiting; Prior surgery; Surgery date: 6+ months; Surgery type: Hyst; Additional info: N/v TECHNIQUE: Imaging protocol: Radiologic exam of the abdomen. Views: Frontal supine view of the abdomen. 1 View. COMPARISON: CT abdomen pelvis con [id number] 11/21/2022 11:48 PM FINDINGS: Tubes, catheters and devices: Partially visualized cardiac lead projecting of the right ventricle. Gastrointestinal tract: No air-filled dilated bowel loops or evidence of bowel thickening. Intraperitoneal space: No evidence of free air. Bones/joints: Mild degenerative changes along the spine. XR/XR KUB portable [id number] IMPRESSION: No acute findings.
--- NOTE | 2022-11-21 18:29 | CTR_ITS ---
PROCEDURE INFORMATION: Exam: CT Abdomen And Pelvis Without Contrast Exam date and time: 11/21/2022 11:48 PM Age: 62 years old Clinical indication: Nausea and vomiting; Abdominal pain; Localized; Right upper quadrant (ruq); Prior surgery; Surgery date: 6+ months; Surgery type: Hysterectomy; Patient HX: Ruq pain with n/v. Positive for shingles. ; Additional info: N/v/ruq abdominal pain TECHNIQUE: Imaging protocol: Computed tomography of the abdomen and pelvis without contrast. Radiation optimization: All CT scans at this facility use at least one of these dose optimization techniques: automated exposure control; mA and/or kV adjustment per patient size (includes targeted exams where dose is matched to clinical indication); or iterative reconstruction. REPORTING DATA: Count of CT and Cardiac NM exams in prior 12 months: This patient has received 3 known CTs and 0 known cardiac nuclear medicine studies in the 12 months prior to the current study. COMPARISON: [place] [id number] 09/22/2016 1:53 PM RADIATION DOSE METRICS: Total DLP (mGy-cm): 1415.23 FINDINGS: Pleural spaces: Small left-sided pleural effusion. Liver: Normal. No mass. Gallbladder and bile ducts: Normal. No calcified stones. No ductal dilation. Pancreas: Normal. No ductal dilation. Spleen: Normal. No splenomegaly. Adrenal glands: Normal. No mass. Kidneys and ureters: Normal. No hydronephrosis. Stomach and bowel: Unremarkable. No obstruction. No mucosal thickening. Appendix: The appendix is not visualized but there are no secondary signs of acute appendicitis. Intraperitoneal space: Unremarkable. No free air. No significant fluid collection. Vasculature: Unremarkable. No abdominal aortic aneurysm. Lymph nodes: Unremarkable. No enlarged lymph nodes. Urinary bladder: There is a Morris catheter in the bladder. Bladder is decompressed. Reproductive: Unremarkable as visualized. Bones/joints: Unremarkable. No acute fracture. Soft tissues: Unremarkable. CT/CT abdomen pelvis wo con [id number] IMPRESSION: 1. No bowel obstruction or inflammatory process associated with the bowel. 2. No free air or significant free fluid in the abdomen or pelvis. 3. The appendix is not visualized but there are no secondary signs of acute appendicitis.
[2022-11-21] MEDS: morphine 4 mg/mL SDV 1 mL 1 MG IVP (19:58)
--- NOTE | 2022-11-21 20:00 | PC.NURSE ---
Medications Given Late: Medications given late d/t obtaining IV access. See MAR for administration times. Dr. Irby made aware. New ultrasound guided IV in R. UA.
[2022-11-21] MEDS: apixaban 5 mg Tablet PO (20:01)
[2022-11-21] MEDS: sacubitril/valsartan 24-26 mg Tablet 4 EACH PO (20:01)
[2022-11-21] MEDS: carBAMazepine 200 mg Tablet PO (20:01)
[2022-11-21] MEDS: pantoprazole 40 mg SDV IVP (20:06)
--- NOTE | 2022-11-21 20:16 | ECG_ITS ---
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 Measurements Intervals [place] Rate: 135 P: 0 LA: 0 QRS: 72 QRSD: 114 T: 192 QT: 308 QTc: 462 Interpretive Statements ATRIAL FIBRILLATION WITH RAPID VENTRICULAR RATE MODERATE INTRAVENTRICULAR CONDUCTION DELAY [110+ ms QRS DURATION] ST DEVIATION AND MODERATE T-WAVE ABNORMALITY, CONSIDER INFERIOR ISCHEMIA [-0.1+ mV T-WAVE IN II/aVF]Compared to ECG 11/21/2022 17:55:44 Atrial abnormality no longer present Myocardial infarct finding no longer present Electronically Signed On 11-22-2022 7:14:24 CDT by Ayan Angulo M.D. [id number]
[2022-11-21 20:35] LABS: Troponin 5 2HR 18.42 ng/L (0-10); Troponin 5 2HR Delta 0.42 ABS# (0-10)
[2022-11-21 20:37] LABS: Estmated Average Glucose 105; Hemoglobin A1C 5.3 % (4.0-6.0)
[2022-11-21 20:40] LABS: Carbamazepine Tegretol 6.1 ug/mL (4.0-12.0)
[2022-11-21] MEDS: cefTRIAXone 1,000 MG in sodium chloride 0.9% (plus) 50 ML 100 MG IV (20:41)
[2022-11-21 20:42] LABS: C Reactive Protein 52.6 mg/L (0.0-4.9); Chol HDL Ratio 3.73 mg/dL (0.0-4.40); Cholesterol 164 mg/dL (0-200); HDL Cholesterol 44 mg/dL (60-100); LDL Cholesterol Calculated 103 mg/dL (50-129); LDL HDL Ratio 2.34 RATIO (0.00-3.22); Lipase 27 U/L (13-60); Magnesium 2.1 mg/dL (1.7-2.3); Thyroid Stimulating Hormone 1.55 uIU/mL (0.27-4.20); Triglycerides 87 mg/dL (0-150)
[2022-11-21] MEDS: acyclovir 1,000 MG in sodium chloride 0.9% 250 ML 270 MG IV (20:53)
[2022-11-21] MEDS: vancomycin 1,250 MG/250 ML PIGGYBACK 250 MG IV (20:58)
[2022-11-21] MEDS: FUROsemide 10 mg/mL SDV 4mL 40 MG IVP (21:14)
[2022-11-21 21:43] LABS: Add Urine Microscopic? NO; Charge for UA Resulting for Rev
[2022-11-21 21:51] LABS: Bilirubin Urine Neg (Negative); Blood Urine Neg (Negative); Glucose Urine UA Norm (Normal); Ketones Urine Negative (Negative); Leukocyte Esterase Urine Negative (Negative); Nitrate Urine Negative (Negative); Protein Urine Neg (Negative); Urine Appearance Clear (CLEAR); Urine Color Amber (Yellow); Urobilinogen Urine Neg (Negative); pH Urine 5 (5-7)
[2022-11-21] MEDS: metoprolol tartrate 1 mg/1 mL SDV 5 mL 5 MG IVP (21:58)
[2022-11-21] MEDS: digoxin 250 mcg/ml INJ 2 mL 500 MCG IVP (22:30)
[2022-11-21 22:46] LABS: Troponin 5 6HR 18.77 ng/L (0-10)
[2022-11-21 22:48] LABS: Troponin 5 6HR Delta 0.77 ng/L (0-12)
--- NOTE | 2022-11-21 23:11 | PC.NURSE ---
HR Greater than 150: Messaged Dr. Irby @approximately 2120 concerning A.fib in the 160's. Spoke w/ Dr. Irby on the phone @2145 about current pt condition. New order for 5mg IVP metoprolol. Dr. Irby on unit shortly after. See MAR for administration of metoprolol. Dr. Irby @bedside during administration. BP dropped. Order to stop pushing metoprolol. Only 2.5mg of 5mg given.
[2022-11-21 23:31] LABS: Adenovirus Not Detected (NOT DETECT); Chlamydia Pneumoniae Not Detected (NOT DETECT); Coronavirus 229E,HKU1,NL63,OC4 Not Detected (NOT DETECT); Human Metapneumovirus Not Detected (NOT DETECT); Human Rhinovirus/Enterovirus Not Detected (NOT DETECT); Influenza A Not Detected (NOT DETECT); Influenza A H1 Not Detected (NOT DETECT); Influenza A H1-2009 Not Detected (NOT DETECT); Influenza A H3 Not Detected (NOT DETECT); Influenza B Not Detected (NOT DETECT); Mycoplasma Pneumoniae Not Detected (NOT DETECT); Parainfluenza Virus Type 1 Not Detected (NOT DETECT); Parainfluenza Virus Type 2 Not Detected (NOT DETECT); Parainfluenza Virus Type 3 Not Detected (NOT DETECT); Parainfluenza Virus Type 4 Not Detected (NOT DETECT); Respiratory Syncytial Virus A Not Detected (NOT DETECT); Respiratory Syncytial Virus B Not Detected (NOT DETECT); SARS-COV-2 Not Detected (NOT DETECT)
[2022-11-22] VITALS (55 sets, daily range): BP systolic 86–152; BP diastolic 46–87; PULSE 87–114; RESP 14–38; TEMP 36.7–37.5; O2SAT 90–98
--- NOTE | 2022-11-22 00:15 | PC.NURSE ---
Converted to SR: A.fib/flutter converted to SR @0015. Strip placed in chart. Dr. Irby notified.
[2022-11-22] MEDS: acyclovir 1,000 MG in sodium chloride 0.9% 250 ML 270 MG IV ×3 (02:10→19:19)
[2022-11-22] MEDS: digoxin 250 mcg/ml INJ 2 mL IVP ×2 (03:50→09:31)
--- NOTE | 2022-11-22 04:13 | PC.NURSE ---
Refusing BIPAP: Encouraged pt to wear BIPAP and explained the purpose of the BIPAP r/t disease process. Pt was resistant to education, stating that she just wants to rest and cant with the mask on. Michelle RT made aware.
[2022-11-22 04:44] LABS: Basophils % 0.3 %; Eosinophils # 0.1 10^3/uL (0.0-0.8); Eosinophils % 1.1 %; Hematocrit 33.5 % (36-47); Lymphocytes # 2.2 10^3/uL (0.8-4.8); Lymphocytes % 35.2 %; Mean Corpuscular HGB Conc 32.8 g/dL (30-55); Mean Corpuscular Hemoglobin 34.2 pg (27-33); Mean Platelet Volume 10.6 fL (7.4-10.4); Monocytes # 0.6 10^3/uL (0.2-0.9); Neutrophils # 3.32 10^3/uL (1.8-7.7); Neutrophils % 53.2 %; Nucleated Red Blood Cells % 0 %; Platelet Count 88 10^3/cmm (157-399); Red Blood Count 3.22 10^6/uL (3.85-5.65); Red Cell Distribution Width 12.8 % (12.1-15.1); White Blood Count 6.23 10^3/uL (3.29-11.43)
[2022-11-22 05:12] LABS: Anion Gap 8.5 (5-19); Blood Urea Nitrogen 13 mg/dL (8-23); Calcium 7.6 mg/dL (8.5-10.5); Carbon Dioxide 29 mmol/L (22-29); Chloride 100 mmol/L (98-107); Glucose 100 mg/dL (65-115); Magnesium 1.8 mg/dL (1.7-2.3); Osmolality Calculated 278 mOsm/kg (285-295); Phosphorus 2.5 mg/dL (2.5-4.5); Potassium 3.5 mmol/L (3.5-5.1); Sodium 134 mmol/L (136-145)
[2022-11-22 05:13] LABS: NT Pro B Type Natriuretic Pept 4240 pg/mL (0-125)
[2022-11-22] MEDS: vancomycin 1,250 MG/250 ML PIGGYBACK 250 MG IV ×2 (06:10→19:19)
[2022-11-22] MEDS: FUROsemide 10 mg/mL SDV 4mL 40 MG IVP (08:53)
[2022-11-22] MEDS: amiodarone 200 mg Tablet 400 MG PO ×2 (08:53→17:21)
[2022-11-22] MEDS: carBAMazepine 200 mg Tablet PO ×2 (08:54→17:21)
[2022-11-22] MEDS: sacubitril/valsartan 24-26 mg Tablet 4 EACH PO ×2 (08:55→17:20)
[2022-11-22] MEDS: apixaban 5 mg Tablet PO ×2 (08:55→17:21)
[2022-11-22] MEDS: potassium chloride ER 20 mEq Tablet 40 MEQ PO (08:55)
[2022-11-22] MEDS: metOLazone 5 MG Tablet 2.5 MG PO (08:56)
--- NOTE | 2022-11-22 09:00 | USCV_ITS ---
Shana Roy Age: 62 Gender: F : 1960 Exam Date: 11/22/2022 09:32 Ordering Phys: Felipe Martin MD Technologist: Morgan Rios Exam Location: [facility] [place] Indication: EF BP: 142 / 57 HR: 93 Rhythm: Sinus Technical Quality: Adequate MEASUREMENTS (Male / Female) Normal Values 2D ECHO LVOT Diameter 2.3 cm LV Ejection Fraction MOD 2C 38.5 % LV Ejection Fraction 2C AL 40.6 % LA Diameter 3.8 cm LA Width 3.2 cm LA Height 3.9 cm RA Width 3.0 cm RA Height 3.9 cm Aorta at Sinotubular Diameter 2.4 cm IVC Diameter 1.7 cm M-MODE Aortic Annulus Diameter 2.6 cm LA Ao Ratio MM 1.3 MV E Point Septal Separation 1.1 cm DOPPLER AV Peak Velocity 129.0 cm/s LVOT Peak Velocity 89.0 cm/s AV Area Cont Eq vti 2.9 cm squared AV Area Cont Eq pk 2.9 cm squared MV Peak Velocity 85.0 cm/s MV Area PHT 5.1 cm squared Mitral E to A Ratio 0.8 MV E' Velocity 32.5 cm/s Mitral E to MV E' Ratio 8.9 Mitral E to LV E' Lateral Ratio 8.1 Mitral E to LV E' Septal Ratio 10.0 Right Atrial Pressure 3.0 mmHg PV Peak Velocity 97.7 cm/s RV Acceleration Time 0.1 s RV Ejection Time 0.2 s RV AcT/ET 0.4 FINDINGS Left Ventricle Technically very limited quality echocardiogram because of poor ultrasonic windows. LV systolic function is moderately reduced with EF of 35 to 40%. Moderate global hypokinesis is seen. Grade 1 diastolic dysfunction. Right Ventricle Not well visualized Right Atrium Not well visualized Left Atrium Not well visualized Mitral Valve Not well visualized. Trace mitral regurgitation Aortic Valve Not well visualized. No significant stenosis Tricuspid Valve Not well visualized Pulmonic Valve Not well visualized Pericardium Grossly normal Aorta Normal in size IVC Appears to be normal CONCLUSIONS Technically limited quality echocardiogram because of poor ultrasonic windows. LV systolic function is moderately reduced with EF of 35 to 40%. Moderate global hypokinesis is seen. Grade 1 diastolic dysfunction Valvular structures are not well visualized Trace mitral regurgitation Compared to prior echocardiogram from 2021, LV systolic function has improved. Ayan Angulo MD (Electronically Signed) Final Date: 22 November 2022 12:11 S
[2022-11-22] MEDS: morphine 4 mg/mL SDV 1 mL 1 MG IVP ×3 (09:38→19:57)
[2022-11-22] MEDS: perflutren protein-a microsphr 0.22 mg/mL SDV 3 mL IV (10:17)
--- NOTE | 2022-11-22 16:40 | PM.PN ---
Subjective Subjective: Patient was seen this morning, she tells me she feels significantly better, overnight, she was in A-fib with RVR, despite amiodarone and amiodarone bolus was given a digoxin bolus, converted to normal sinus rhythm, currently in normal sinus rhythm, continues to have lower extremity edema, Vitals/I&O/Wt Last Vital Signs Temp 99.5 F 11/22/22 16:00 Pulse 95 11/22/22 16:00 Resp 22 H 11/22/22 16:00 BP 106/71 11/22/22 16:00 Pulse Ox 94 11/22/22 16:00 O2 Del Method Room Air 11/22/22 16:00 FiO2 24 11/22/22 16:00 11/22/22 11/22/22 11/22/22 06:59 14:59 22:59 Intake Total 477.775 / 1252.087 594.54 / 594.54 520 / 1114.54 Output Total 3050 / 3050 2800 / 2800 Balance -2572.225 / -1797.913 -2205.46 / -2205.46 520 / -1685.46 Weight last 48 hrs Weight 111.13 kg Physical Exam Const: COMMON NORMALS: no acute distress and patient oriented x3 Resp: COMMON NORMALS: normal respiratory effort, No retractions and No use of accessory muscles AUSCULTATION: crackles Cardio: COMMON NORMALS: regular rate, regular rhythm, S1 normal heart sound present and S2 normal heart sound present RATE: regular rate RHYTHM: regular rhythm HEART SOUNDS: S1 normal heart sound present and S2 normal heart sound present GI: COMMON NORMALS: Normal to inspection, nondistended, normoactive bowel sounds present and non-tender Extremity: NARRATIVE EXTREMITY EXAM: 2+ pitting edema bilateral extremity Neuro: COMMON NORMALS: patient oriented x3 Psych: COMMON NORMALS: mental status grossly normal Urinary Catheter Management: Morris: Cath Placed During This Visit: yes Reason for Continuing Indwelling Catheter: Accurate Measurement of Urinary Output in Critically Ill Patients Urinary Catheter Date of Insertion: 11/21/22 Urinary Catheter Time of Insertion: 21:10 Data 11/22/22 04:30 11/22/22 04:30 Micro: Microbiology 11/21/22 22:19 Blood Culture - Preliminary Blood SPECIMEN COLLECTED 11/21/22 19:49 Blood Culture - Preliminary Blood SPECIMEN COLLECTED A&P Assessment and plan (1) Atrial fibrillation with rapid ventricular response: (2) Disseminated herpes zoster: (3) Cellulitis: (4) Systolic CHF, acute on chronic: (5) Varicella zoster: (6) AICD (automatic cardioverter/defibrillator) present: (7) Tobacco dependency: (8) Congestive heart failure with LV diastolic dysfunction, NYHA class 2: Plan Disseminated shingles -Immunocompromise state, on Enbrel, on Plaquenil -Contact precautions, airborne precautions -Continue Tegretol, Tegretol level -Start IV acyclovir -Morphine for pain -We will consider gabapentin based on clinical progress -Keep area covered, Atrial flutter/ atrial fibrillation with rapid ventricular response -Currently in normal sinus rhythm -Continue amiodarone 400 twice daily -Continue Eliquis Systolic CHF exacerbation -Likely due to inability to take her Entresto, Lasix, her atrial fibrillation -Lasix 40 IV every 12 hours, 2 doses, with 1 dose of metolazone, 1 dose potassium -Place Morris catheter Chronic respiratory failure -With underlying CHF exacerbation -With underlying A-fib with RVR -Start BiPAP Nonischemic cardiomyopathy CONCLUSIONS ?Technically limited quality echocardiogram because of poor ?ultrasonic windows. ?LV systolic function is moderately reduced with EF of 35 to 40%.? ?Moderate global hypokinesis is seen.? Grade 1 diastolic ?dysfunction ?Valvular structures are not well visualized ?Trace mitral regurgitation ?Compared to prior echocardiogram from 2021, LV systolic function ?has improved. Full code Eliquis for DVT prophylaxis Attestations Medical Necessity Statement*: Patient requires hospitalization for systolic CHF, requiring diuresis, IV Lasix, metolazone, atrial flutter atrial fibrillation with RVR, chronic amiodarone, disseminated shingles Diagnoses Atrial fibrillation with rapid ventricular response I48.91 Disseminated herpes zoster B02.7 Cellulitis L03.90 Systolic CHF, acute on chronic I50.23 Varicella zoster B02.9 AICD (automatic cardioverter/defibrillator) present Z95.810 Tobacco dependency F17.200 Congestive heart failure with LV diastolic dysfunction, NYHA class 2 I50.30
[2022-11-22] MEDS: FUROsemide 10 mg/mL SDV 2mL 20 MG IVP (17:23)
[2022-11-22] MEDS: cefTRIAXone 1,000 MG in sodium chloride 0.9% (plus) 50 ML 100 MG IV (17:23)
[2022-11-22] MEDS: pantoprazole 40 mg SDV IVP (17:23)
--- NOTE | 2022-11-22 18:06 | PC.NURSE ---
Shift summary: uneventful shift Patient. was up to a chair for about 5 hours today. At the tanmay of this note at least 2600mL of urine output, but likely will have more this shif as she just recently received lasix. Swelling in feet is noticeable decreased. Lungs were wheezy this morning but cleared up after morning dose of lasix. Heart rhythm has remained SR, mostly in the 90's when at rest. Occaisonally needed morphone for pain related to the shingles lesion.
--- NOTE | 2022-11-22 18:51 | PC.NURSE ---
Late note: IV to the left AC was found to be infiltrated at 0900 this morning AMiodarone was infusing throughout it and is a vesicant. Nurse aspirated about 1mL of fluid from IV site, removed IV, and applied warm compress. Nurse alerted pharmacy and asked about any antidotes for subq injection but none are available. Nurse alerted Dr santoro and received orders to continue to monitor.
[2022-11-23] VITALS (29 sets, daily range): BP systolic 95–144; BP diastolic 52–95; PULSE 72–110; RESP 15–26; TEMP 36.8–36.9; O2SAT 90–100
[2022-11-23] MEDS: acyclovir 1,000 MG in sodium chloride 0.9% 250 ML 270 MG IV ×3 (02:42→18:40)
--- NOTE | 2022-11-23 04:35 | PC.NURSE ---
Patient noted to convert back to A-fib with rate 130-160's. Blood pressure 1231/64, no reports of sob or chest pain. Blood pressure decreased to 69/53 within a few minutes. Notified Dr. Irby of A-fib and decreased blood pressure. Order given for 150mg Amiodarone IVPB over 10 minutes and levophed drip as needed.
--- NOTE | 2022-11-23 05:03 | PC.NURSE ---
Amiodarone 150mg IVPB complete, converted to ST with rate 102-106. Blood pressure currently 118/68, paused levophed.
[2022-11-23 06:03] LABS: Basophils % 0.5 %; Eosinophils # 0.2 10^3/uL (0.0-0.8); Eosinophils % 2.6 %; Hematocrit 37.9 % (36-47); Lymphocytes # 1.9 10^3/uL (0.8-4.8); Lymphocytes % 29.5 %; Mean Corpuscular HGB Conc 33.5 g/dL (30-55); Mean Corpuscular Volume 101.6 fl (85-98); Mean Platelet Volume 11.3 fL (7.4-10.4); Monocytes # 0.5 10^3/uL (0.2-0.9); Monocytes % 8.1 %; Neutrophils # 3.71 10^3/uL (1.8-7.7); Neutrophils % 59.1 %; Nucleated Red Blood Cells % 0 %; Platelet Count 110 10^3/cmm (157-399); Red Blood Count 3.73 10^6/uL (3.85-5.65); White Blood Count 6.27 10^3/uL (3.29-11.43)
[2022-11-23 07:16] LABS: Vancomycin Trough 17.9 ug/mL (10-15)
[2022-11-23] MEDS: vancomycin 1,250 MG/250 ML PIGGYBACK 250 MG IV (07:56)
[2022-11-23] MEDS: apixaban 5 mg Tablet PO ×2 (08:13→18:17)
[2022-11-23] MEDS: morphine 4 mg/mL SDV 1 mL 1 MG IVP ×3 (08:14→22:50)
[2022-11-23] MEDS: carBAMazepine 200 mg Tablet PO ×2 (08:14→18:17)
[2022-11-23] MEDS: amiodarone 200 mg Tablet 400 MG PO ×2 (08:14→18:17)
[2022-11-23] MEDS: sacubitril/valsartan 24-26 mg Tablet 4 EACH PO ×2 (08:14→18:17)
[2022-11-23] MEDS: metoprolol tartrate 50 mg Tablet PO ×2 (08:55→20:33)
[2022-11-23] MEDS: docusate sodium 100 mg Capsule PO ×2 (10:43→18:17)
--- NOTE | 2022-11-23 13:34 | PM.PN ---
Subjective Subjective: Patient was seen this morning, she continues to have 1+ pitting edema, she does report shortness of breath, no fevers, no chills, no significant lightheadedness, no dizziness, she did overnight have A-fib with RVR, requiring amiodarone bolus, with amiodarone drip,Then converted into normal sinus rhythm, I have started her on metoprolol 50 twice daily, she was examined, she is tolerating well, she continues to have pitting edema, we discussed diuresis, unfortunately there is been multiple attempts at drawing her BMP without success, so I am hesitant about diuresing her but I do not know what her creatinine is after diuresis yesterday, I had a discussion with the lab, voiced my concern as patient remains fluid overloaded, and need to diurese her I need to know what her potassium is nursing staff have tried to do a blood stick but the lab test hemolyzed, they told me that all the surface logging systems logger are maxed out in terms of their tries, they are going to have their school business manager come in and try to draw a BMP, if not then we will have to do an arterial stick, Vitals/I&O/Wt Last Vital Signs Temp 98.5 F 11/23/22 08:00 Pulse 77 11/23/22 12:00 Resp 20 H 11/23/22 12:00 BP 123/64 11/23/22 11:00 Pulse Ox 95 11/23/22 12:00 O2 Del Method Nasal Cannula 11/23/22 08:00 O2 Flow Rate 2 11/23/22 08:00 FiO2 24 11/23/22 04:00 11/22/22 11/23/22 11/23/22 22:59 06:59 14:59 Intake Total 1650 / 2244.54 524.143 / 2768.683 730 / 730 Output Total 800 / 3600 975 / 4575 Balance 850 / -1355.46 -450.857 / -1806.317 730 / 730 Weight last 48 hrs Weight 111.765 kg Physical Exam Const: COMMON NORMALS: no acute distress and patient oriented x3 Resp: COMMON NORMALS: normal respiratory effort, No retractions and No use of accessory muscles AUSCULTATION: crackles Cardio: COMMON NORMALS: regular rate, regular rhythm, S1 normal heart sound present and S2 normal heart sound present RATE: regular rate RHYTHM: regular rhythm HEART SOUNDS: S1 normal heart sound present and S2 normal heart sound present GI: COMMON NORMALS: Normal to inspection, nondistended, normoactive bowel sounds present and non-tender Extremity: NARRATIVE EXTREMITY EXAM: Has 1+ pitting edema Neuro: COMMON NORMALS: patient oriented x3 Psych: COMMON NORMALS: mental status grossly normal Urinary Catheter Management: Morris: Cath Placed During This Visit: yes Reason for Continuing Indwelling Catheter: Accurate Measurement of Urinary Output in Critically Ill Patients Urinary Catheter Date of Insertion: 11/21/22 Urinary Catheter Time of Insertion: 21:10 Data 11/23/22 05:52 11/22/22 04:30 Micro: Microbiology 11/21/22 22:19 Blood Culture - Preliminary Blood NEGATIVE TO DATE 11/21/22 19:49 Blood Culture - Preliminary Blood NEGATIVE TO DATE A&P Assessment and plan (1) Atrial fibrillation with rapid ventricular response: (2) Disseminated herpes zoster: (3) Cellulitis: (4) Systolic CHF, acute on chronic: (5) Varicella zoster: (6) AICD (automatic cardioverter/defibrillator) present: (7) Tobacco dependency: (8) Congestive heart failure with LV diastolic dysfunction, NYHA class 2: Plan Disseminated shingles -Immunocompromise state, on Enbrel, on Plaquenil -Contact precautions, airborne precautions -Continue Tegretol, Tegretol level -Continue IV acyclovir ? For cellulitis I will de-escalate antibiotics to doxycycline -Morphine for pain -We will consider gabapentin based on clinical progress -Keep area covered, Atrial flutter/ atrial fibrillation with rapid ventricular response -Currently in normal sinus rhythm -Continue amiodarone 400 twice daily, metoprolol 50 twice daily -Continue Eliquis Systolic CHF exacerbation -Likely due to inability to take her Entresto, Lasix, her atrial fibrillation -We will dose Lasix once I know her kidney function, and her potassium -Place Morris catheter Acute on chronic chronic respiratory failure -With underlying CHF exacerbation -With underlying A-fib with RVR -Continue BiPAP Nonischemic cardiomyopathy CONCLUSIONS ?Technically limited quality echocardiogram because of poor ?ultrasonic windows. ?LV systolic function is moderately reduced with EF of 35 to 40%.? ?Moderate global hypokinesis is seen.? Grade 1 diastolic ?dysfunction ?Valvular structures are not well visualized ?Trace mitral regurgitation ?Compared to prior echocardiogram from 2021, LV systolic function ?has improved. Full code Eliquis for DVT prophylaxis Attestations Medical Necessity Statement*: Patient requires hospitalization for fluid overload requiring diuresis, disseminated shingles Diagnoses Atrial fibrillation with rapid ventricular response I48.91 Disseminated herpes zoster B02.7 Cellulitis L03.90 Systolic CHF, acute on chronic I50.23 Varicella zoster B02.9 AICD (automatic cardioverter/defibrillator) present Z95.810 Tobacco dependency F17.200 Congestive heart failure with LV diastolic dysfunction, NYHA class 2 I50.30
[2022-11-23] MEDS: ipratropium-albuterol 3 mL Neb INHALATION (14:56)
[2022-11-23] MEDS: doxycycline 100 mg Tablet PO (18:17)
[2022-11-23] MEDS: pantoprazole 40 mg SDV IVP (18:17)
[2022-11-23 20:15] LABS: Blood Urea Nitrogen 14 mg/dL (8-23); Calcium 8.5 mg/dL (8.5-10.5); Carbon Dioxide 32 mmol/L (22-29); Chloride 97 mmol/L (98-107); Glucose 114 mg/dL (65-115); NT Pro B Type Natriuretic Pept 317 pg/mL (0-125); Osmolality Calculated 279 mOsm/kg (285-295); Phosphorus 2.6 mg/dL (2.5-4.5); Sodium 134 mmol/L (136-145)
[2022-11-23 20:16] LABS: Anion Gap 9.2 (5-19); Potassium 4.2 mmol/L (3.5-5.1)
--- NOTE | 2022-11-23 22:05 | PC.NURSE ---
Patient attempting to get out of bed upon entering room. Instructed patient not to attempt to get out of bed without assistance. Call light at bedside. Patient reports that she is trying to get out of bed because she is hungry. Assisted to bedside and then to chair at bedside. Holt given to patient, chair alarm set, call aguilar at patients side.
--- NOTE | 2022-11-23 22:51 | PC.NURSE ---
Bath given, assisted back to bed, morphine given for pain. Tolerated well.
[2022-11-24] VITALS (17 sets, daily range): BP systolic 115–159; BP diastolic 53–95; PULSE 64–90; RESP 12–25; TEMP 36.4–36.9; O2SAT 91–97; BMI 36.3
[2022-11-24] MEDS: acyclovir 1,000 MG in sodium chloride 0.9% 250 ML 270 MG IV ×2 (02:32→10:54)
[2022-11-24] MEDS: morphine 4 mg/mL SDV 1 mL 1 MG IVP ×2 (05:08→09:46)
[2022-11-24 05:50] LABS: Basophils % 0.3 %; Eosinophils # 0.2 10^3/uL (0.0-0.8); Eosinophils % 2.8 %; Lymphocytes # 1.5 10^3/uL (0.8-4.8); Lymphocytes % 23.8 %; Mean Corpuscular HGB Conc 33.6 g/dL (30-55); Mean Corpuscular Hemoglobin 33.2 pg (27-33); Mean Corpuscular Volume 98.9 fl (85-98); Mean Platelet Volume 10.3 fL (7.4-10.4); Monocytes # 0.5 10^3/uL (0.2-0.9); Monocytes % 7.8 %; Neutrophils # 4.16 10^3/uL (1.8-7.7); Neutrophils % 65.1 %; Nucleated Red Blood Cells % 0 %; Platelet Count 118 10^3/cmm (157-399); Red Blood Count 3.64 10^6/uL (3.85-5.65); Red Cell Distribution Width 12.7 % (12.1-15.1); White Blood Count 6.39 10^3/uL (3.29-11.43)
[2022-11-24 06:03] LABS: Anion Gap 9.8 (5-19); Blood Urea Nitrogen 12 mg/dL (8-23); Calcium 8.6 mg/dL (8.5-10.5); Carbon Dioxide 31 mmol/L (22-29); Chloride 99 mmol/L (98-107); Glucose 137 mg/dL (65-115); Magnesium 1.9 mg/dL (1.7-2.3); Osmolality Calculated 284 mOsm/kg (285-295); Phosphorus 2.9 mg/dL (2.5-4.5); Potassium 3.8 mmol/L (3.5-5.1); Sodium 136 mmol/L (136-145)
[2022-11-24 06:14] LABS: NT Pro B Type Natriuretic Pept 482 pg/mL (0-125)
[2022-11-24] MEDS: apixaban 5 mg Tablet PO (08:56)
[2022-11-24] MEDS: amiodarone 200 mg Tablet 400 MG PO (08:56)
[2022-11-24] MEDS: doxycycline 100 mg Tablet PO (08:56)
[2022-11-24] MEDS: docusate sodium 100 mg Capsule PO (08:56)
[2022-11-24] MEDS: carBAMazepine 200 mg Tablet PO (08:56)
[2022-11-24] MEDS: metoprolol tartrate 50 mg Tablet PO (08:57)
[2022-11-24] MEDS: sacubitril/valsartan 24-26 mg Tablet 4 EACH PO (09:20)
--- NOTE | 2022-11-24 12:50 | P.DS_ITS ---
Discharge Providers Date of Admission: 11/21/22 17:34 Date of Discharge: November 24, 2022 Attending Provider at Admission: Chai Lombardi MD Attending Provider at Discharge: Saran Castillo Primary Care Provider: Joni Duque MD Diagnoses at Discharge Discharge Diagnosis (1) Atrial fibrillation with rapid ventricular response: Status: Acute (2) Disseminated herpes zoster: Status: Acute (3) Cellulitis: Status: Acute (4) Systolic CHF, acute on chronic: Status: Acute (5) Varicella zoster: Status: Acute (6) AICD (automatic cardioverter/defibrillator) present: Status: Acute (7) Tobacco dependency: Status: Chronic (8) Congestive heart failure with LV diastolic dysfunction, NYHA class 2: Status: Acute Reason for Visit Reason for Visit: sent by [facility] Course Hospital Course Pleasant 62-year-old lady with history of nonischemic cardiomyopathy with low EF, AICD, COPD, systolic and diastolic CHF, atrial fibrillation on Eliquis was admitted having recently been diagnosed with shingles, was developing painful vesicular rash spreading over left flank, left leg, no visual orotic symptoms, with nausea and vomiting, unable to keep down food or medication, on presentation with atrial fibrillation with RVR. Started on IV acyclovir, Enbrel was held, maintained on isolation precautions. Received doxycycline for mild superimposed cellulitis. Atrial fibrillation with RVR initially treated with Cardizem drip, subsequently switched to amiodarone drip, metoprolol switched from succinate to tartrate 50 mg twice daily. Heart rates under control. Has switched over to oral amiodarone. Continue 400 mg twice daily for 1 week then switch to 200 mg twice daily. Consider switching to alternative agent, otherwise follow-up for any amiodarone related adverse effects. Continues on metoprolol tartrate for better heart rate control. Continues on Eliquis. Has been able to resume oral intake, ambulating without issues. Zoster lesions are crusting over. Instructed to keep covered until fully dry/crusted. Complete valacyclovir course. Hold Enbrel until recovered from zoster. Follow-up with rheumatology. Resume Lasix for cardiomyopathy and CHF. Follow-up with cardiology. Physical Exam Const: COMMON NORMALS: patient oriented x3 and alert GENERAL APPEARANCE: cooperative ORIENTATION/CONSCIOUSNESS: Yes awake HENMT: COMMON NORMALS: oropharynx normal Neck/C-Spine: COMMON NORMALS: no JVD Resp: COMMON NORMALS: normal respiratory effort and clear to auscultation bilaterally AUSCULTATION: clear to auscultation bilaterally Cardio: COMMON NORMALS: no JVD, regular rhythm, S1 normal heart sound present, S2 normal heart sound present and No murmurs present (Cardio) RHYTHM: regular rhythm HEART SOUNDS: S1 normal heart sound present and S2 normal heart sound present GI: COMMON NORMALS: Normal to inspection, nondistended, normoactive bowel sounds present, Soft to palpation and non-tender PALPATION: Yes Soft to palpation Extremity: COMMON NORMALS: no joint enlargement and no pedal edema Neuro: COMMON NORMALS: patient oriented x3 and moves all extremities SENSORIUM/ORIENTATION: Yes alert Skin: LESIONS: lesion noted (L hemithorax around T5 dermatome crusted/eschar lesions, no blister/drainag) Urinary Catheter Management: Morris: Cath Placed During This Visit: yes Reason for Continuing Indwelling Catheter: Accurate Measurement of Urinary Output in Critically Ill Patients Urinary Catheter Date of Insertion: 11/21/22 Urinary Catheter Time of Insertion: 21:10 Discharge Data Studies Completed and Pending Completed Studies During Hospitalization Category Date Time Status CT abdomen pelvis wo con 28550 Routine Cat Scan 11/21/22 18:29 Completed XR KUB portable [id number] Routine Exams 11/21/22 18:28 Completed XR chest 1V portable [id number] Stat Exams 11/21/22 16:20 Completed CV. echo wo/w contrast [id number] Routine Ultrasound 11/22/22 09:00 Completed Pending at discharge Category Date Time Status Blood Culture Routine Lab 11/21/22 22:19 Results Radiology Impressions Chest X-Ray 11/21/22 16:20 IMPRESSION: No acute findings. KUB X-Ray 11/21/22 18:28 IMPRESSION: No acute findings. Abdomen/Pelvis CT 11/21/22 18:29 IMPRESSION: 1. No bowel obstruction or inflammatory process associated with the bowel. 2. No free air or significant free fluid in the abdomen or pelvis. 3. The appendix is not visualized but there are no secondary signs of acute appendicitis. Laboratory Results WBC 6.39 10^3/uL (3.29-11.43) 11/24/22 05:37 RBC 3.64 10^6/uL (3.85-5.65) L 11/24/22 05:37 Hgb 12.10 g/dL (11.27-16.99) 11/24/22 05:37 Hct 36.0 % (36-47) 11/24/22 05:37 MCV 98.9 fl (85-98) H 11/24/22 05:37 MCH 33.2 pg (27-33) H 11/24/22 05:37 MCHC 33.6 g/dL (30-55) 11/24/22 05:37 RDW 12.7 % (12.1-15.1) 11/24/22 05:37 Plt Count 118 10^3/cmm (157-399) L 11/24/22 05:37 MPV 10.3 fL (7.4-10.4) 11/24/22 05:37 Neut % (Auto) 65.1 % 11/24/22 05:37 Lymph % (Auto) 23.8 % 11/24/22 05:37 [place] % (Auto) 7.8 % 11/24/22 05:37 Eos % (Auto) 2.8 % 11/24/22 05:37 Baso % (Auto) 0.3 % 11/24/22 05:37 Neut # (Auto) 4.16 10^3/uL (1.8-7.7) 11/24/22 05:37 Lymph # (Auto) 1.5 10^3/uL (0.8-4.8) 11/24/22 05:37 [place] # (Auto) 0.5 10^3/uL (0.2-0.9) 11/24/22 05:37 Eos # (Auto) 0.2 10^3/uL (0.0-0.8) 11/24/22 05:37 Baso # (Auto) 0.0 10^3/uL (0.0-0.1) 11/24/22 05:37 Nucleated RBC % (auto) 0 % 11/24/22 05:37 Nucleated RBCs # 0.0 /100WBC 11/24/22 05:37 Specimen Type Arterial 11/21/22 18:11 Sample Site Radial, left 11/21/22 18:11 ABG pH 7.44 (7.35-7.45) 11/21/22 18:11 ABG pCO2 37.1 mmHg (35-45) 11/21/22 18:11 ABG pO2 67.9 mmHg (80.0-100.0) L 11/21/22 18:11 ABG HCO3 25.2 mmol/L (22-26) 11/21/22 18:11 ABG Base Excess 1.2 mmol/L (-2.0-2.0) 11/21/22 18:11 David Test Pos 11/21/22 18:11 Hematocrit 36.5 % (37-47) L 11/21/22 18:11 O2 Delivery Device Room air 11/21/22 18:11 FiO2 21.0 % 11/21/22 18:11 Supervisor Glycerin ID Cak 11/21/22 18:11 Sodium 136 mmol/L (136-145) 11/24/22 05:37 Potassium 3.8 mmol/L (3.5-5.1) 11/24/22 05:37 Chloride 99 mmol/L (98-107) 11/24/22 05:37 Carbon Dioxide 31 mmol/L (22-29) H 11/24/22 05:37 Anion Gap 9.8 (5-19) 11/24/22 05:37 BUN 12 mg/dL (8-23) 11/24/22 05:37 Creatinine 0.9 mg/dL (0.5-0.9) 11/24/22 05:37 GFR Calculation 63.0 mL/min (90-130) L 11/24/22 05:37 Glucose 137 mg/dL (65-115) H 11/24/22 05:37 Estimat Average Glucose 105 11/21/22 19:49 Hemoglobin A1c 5.3 % (4.0-6.0) 11/21/22 19:49 Calculated Osmolality 284 mOsm/kg (285-295) L 11/24/22 05:37 Lactic Acid 1.7 mmol/L (0.5-2.2) 11/21/22 16:21 Calcium 8.6 mg/dL (8.5-10.5) 11/24/22 05:37 Phosphorus 2.9 mg/dL (2.5-4.5) 11/24/22 05:37 Magnesium 1.9 mg/dL (1.7-2.3) 11/24/22 05:37 Total Bilirubin 0.3 mg/dL (0.15-1.2) 11/21/22 16:21 AST 22 U/L (0-32) 11/21/22 16:21 ALT 16 U/L (0-33) 11/21/22 16:21 Alkaline Phosphatase 191 U/L (35-105) H 11/21/22 16:21 Troponin T Baseline 18 ng/L (0-10) H 11/21/22 16:21 Troponin T 120 Minute 18.42 ng/L (0-10) H 11/21/22 19:49 Delta Troponin T 0.42 ABS# (0-10) 11/21/22 19:49 Troponin T Hi Sens 6Hr 18.77 ng/L (0-10) H 11/21/22 22:19 Troponin T Hi Sens 6Hr Delta 0.77 ng/L (0-12) 11/21/22 22:19 C-Reactive Protein 52.6 mg/L (0.0-4.9) H 11/21/22 19:49 NT-Pro-B Natriuret Pep 482 pg/mL (0-125) H 11/24/22 05:37 Total Protein 7.1 g/dL (6.6-8.7) 11/21/22 16:21 Albumin 3.6 g/dL (3.5-5.2) 11/21/22 16:21 Globulin 3.5 g/dL (1.3-4.6) 11/21/22 16:21 Triglycerides 87 mg/dL (0-150) 11/21/22 19:49 Cholesterol 164 mg/dL (0-200) 11/21/22 19:49 LDL Cholesterol, Calc 103 mg/dL (50-129) 11/21/22 19:49 HDL Cholesterol 44 mg/dL (60-100) L 11/21/22 19:49 LDL/HDL Ratio 2.34 RATIO (0.00-3.22) 11/21/22 19:49 Cholesterol/HDL Ratio 3.73 mg/dL (0.0-4.40) 11/21/22 19:49 Lipase 27 U/L (13-60) 11/21/22 19:49 Procalcitonin 0.09 ng/mL (0-0.5) 11/21/22 16:21 TSH 1.55 uIU/mL (0.27-4.20) 11/21/22 19:49 Urine Color Deepa (Yellow) 11/21/22 21:32 Urine Appearance Clear (CLEAR) 11/21/22 21:32 Urine pH 5 (5-7) 11/21/22 21:32 Ur Specific [place] 1.020 (1.005-1.030) 11/21/22 21:32 Urine Protein Neg (Negative) 11/21/22 21:32 Urine Glucose (UA) Norm (Normal) 11/21/22 21:32 Urine Ketones Negative (Negative) 11/21/22 21:32 Urine Blood Neg (Negative) 11/21/22 21:32 Urine Nitrate Negative (Negative) 11/21/22 21:32 Urine Bilirubin Neg (Negative) 11/21/22 21:32 Urine Urobilinogen Neg mg/dL (Negative) 11/21/22 21:32 Ur Leukocyte Esterase Negative (Negative) 11/21/22 21:32 Nasal Influ A H1 2008 PCR Not detected (NOT DETECT) 11/21/22 21:34 Vancomycin Trough 17.9 ug/mL (10-15) H 11/23/22 06:30 Carbamazepine 6.1 ug/mL (4.0-12.0) 11/21/22 19:49 Adenovirus (PCR) Not detected (NOT DETECT) 11/21/22 21:34 C. pneumoniae DNA (PCR) Not detected (NOT DETECT) 11/21/22 21:34 Coronavirus 229E (PCR) Not detected (NOT DETECT) 11/21/22 21:34 Human Metapneumovir PCR Not detected (NOT DETECT) 11/21/22 21:34 Influenza A (H1) PCR Not detected (NOT DETECT) 11/21/22 21:34 Influenza A (H3) PCR Not detected (NOT DETECT) 11/21/22 21:34 Influenza Type A (PCR) Not detected (NOT DETECT) 11/21/22 21:34 Influenza Type B (PCR) Not detected (NOT DETECT) 11/21/22 21:34 M. pneumoniae (PCR) Not detected (NOT DETECT) 11/21/22 21:34 Parainfluenza 1 (PCR) Not detected (NOT DETECT) 11/21/22 21:34 Parainfluenza 2 (PCR) Not detected (NOT DETECT) 11/21/22 21:34 Parainfluenza 3 (PCR) Not detected (NOT DETECT) 11/21/22 21:34 Parainfluenza 4 (PCR) Not detected (NOT DETECT) 11/21/22 21:34 RSV Type A (PCR) Not detected (NOT DETECT) 11/21/22 21:34 RSV Type B (PCR) Not detected (NOT DETECT) 11/21/22 21:34 Entero/Rhino (PCR) Not detected (NOT DETECT) 11/21/22 21:34 SARS-CoV-2 (PCR) Not detected (NOT DETECT) 11/21/22 21:34 Vitals Last Vital Signs Temp 97.6 F 11/24/22 04:00 Pulse 79 11/24/22 11:00 Resp 20 H 11/24/22 11:00 BP 142/91 11/24/22 12:00 Pulse Ox 96 11/24/22 11:00 O2 Del Method Room Air 11/24/22 08:05 O2 Flow Rate 2 11/24/22 06:00 FiO2 24 11/23/22 04:00 Discharge Plan Discharge Patient Disposition: Home Condition: Stable Prescriptions: New amiodarone [Pacerone] 200 mg Tablet See Rx Instructions .ROUTE .COMPLEX Qty: 180 0RF Rx Instructions: 400mg BID for 7 days, then 200mg BID metoprolol tartrate 50 mg Tablet 50 mg PO BID@0900,2100 Qty: 180 0RF polyethylene glycol 3350 17 gram Powder In Packet 17 g PO DAILY PRN (Reason: constipation) Qty: 30 0RF doxycycline monohydrate 100 mg Tablet 100 mg PO BID Qty: 8 0RF Continued ondansetron HCl 4 mg tablet 4 mg PO Q8H PRN (Reason: nausea and vomiting) fluticasone propionate [Flonase Allergy Relief] 50 mcg/actuation spray,suspension 1 spray intranasal BID Qty: 18 3RF Rx Instructions: administer into each nostril albuterol sulfate 90 mcg/actuation HFA aerosol inhaler 2 puff INHALATION Q6H PRN (Reason: shortness of breath) Qty: 8.5 3RF ipratropium-albuterol 0.5 mg-3 mg(2.5 mg base)/3 mL solution for nebulization 3 ml inhalation Q6H PRN (Reason: wheezing) Qty: 90 3RF sacubitril-valsartan 97-103 mg tablet 1 tab PO BID Qty: 180 3RF hydroxychloroquine 200 mg tablet 200 mg PO BID Qty: 60 2RF Hold Instructions: Resume on 02/27/22. metolazone 2.5 mg tablet 2.5 mg PO DAILY PRN (Reason: weight gain) Qty: 30 0RF Rx Instructions: Take 30 minutes before morning lasix dose montelukast [Singulair] 10 mg tablet 10 mg PO DAILY Qty: 90 3RF gabapentin 400 mg capsule 400 mg PO TID PRN (Reason: nerve pain) Valtrex 1 gram tablet 1,000 mg PO Q8H 7 Days Qty: 21 0RF Eliquis 5 mg tablet 5 mg PO BID Qty: 180 0RF furosemide 40 mg tablet 40 mg PO DAILY Jardiance 10 mg tablet 10 mg PO DAILY Trelegy Ellipta 100-62.5-25 mcg blister with device 1 inh inhalation DAILY carbamazepine 200 mg tablet 200 mg PO BID Qty: 20 0RF hydrocodone-acetaminophen 5-325 mg tablet 1 tab PO Q8H PRN (Reason: pain) Qty: 10 0RF Held Enbrel 50 mg/mL (1 mL) syringe 50 mg SUBCUT Q7D Hold Instructions: Resume on 12/01/22. Rx Instructions: ON THURSDAY Discontinued metoprolol succinate 100 mg tablet extended release 24 hr 100 mg PO DAILY Qty: 90 3RF Rx Instructions: Take with the 25mg to total 125mg daily metoprolol succinate 25 mg tablet extended release 24 hr 25 mg PO DAILY Discharge Orders: Discharge Order (Routine); Ordered 11/24/22 Ordered By: Saran Castillo Referrals: Joni Duque MD [Primary Care Provider] - 1 week (Shingles, A-fib, CHF) Massiel Rondon FNP [Nurse Practitioner] - (AFib RVR, CHF) Patient Instructions: Metoprolol (By mouth), Acyclovir (By mouth), Amiodarone (By mouth), Heart Failure (GEN), A-fib (Atrial Fibrillation) (GEN), Shingles (GEN), Opioid Safety Activity Restrictions/Additional Instructions: Keep areas affected by shingles covered while healing until completely dry and crusted. Avoid contact with infants and small children, women and people with compromised immune system. Seek medical attention in case of any surrounding erythema, swelling, drainage, fever, or any other worsening or new concerning symptoms. Complete course of valacyclovir. Follow-up with your primary doctor for reassessment. Hold Enbrel for now until recovered from shingles. Follow-up with rheumatology. Continue metoprolol and amiodarone for rate control of atrial fibrillation. Have your primary doctor monitor for any amiodarone related adverse effects that may affect your eyes, thyroid, lungs, liver. Discontinue and/or switch from amiodarone to another medication in case a better alternative becomes available. Take amiodarone 400 mg twice daily for 1 week, then switch to 200 mg twice daily. Metoprolol is changed to 50 mg metoprolol tartrate twice daily. Follow-up with cardiology for atrial fibrillation as well as congestive heart failure. Discharge Attestations Time Spent in Discharge Care*: greater than 30 min Status at Discharge: Cognitive status at discharge: cognitively intact , Behavioral status at discharge: cooperative , Quality Metrics Clinical Quality Measures [ No reported AMI, CVA or VTE this stay] Coding Level of Care Code 49694 Total time (in minutes) for Discharge: 40 Diagnoses Atrial fibrillation with rapid ventricular response I48.91 Disseminated herpes zoster B02.7 Cellulitis L03.90 Systolic CHF, acute on chronic I50.23 Varicella zoster B02.9 AICD (automatic cardioverter/defibrillator) present Z95.810 Tobacco dependency F17.200 Congestive heart failure with LV diastolic dysfunction, NYHA class 2 I50.30
--- NOTE | 2022-11-24 13:15 | PC.NURSE ---
Remove Dutta Catheter Removed dutta catheter, tip intact upon removal. Patient tolerated dutta removal well.
--- NOTE | 2022-11-24 13:51 | PC.NURSE ---
Discharge Note Patient discharged to home via wheelchair accompanied by daughter. Discharge instructions reviewed with patient, verbalized understanding. All prescriptions sent to the pharmacy. Belongings sent home with patient upon discharge.
== END 2022-11-24 13:45 | disposition home or self-care (01) | DRG 291 ==
LOC: ER 16:47 → ICU 17:39
PROVIDERS: Family Medicine; Admitting Provider Student in an Organized Health Care Education/Training Program; Emergency Provider Family Medicine; PCP Family Medicine; Visit Provider Internal Medicine
DX: I11.0 Hypertensive heart disease with heart failure (principal); I50.43 Acute on chronic combined systolic (congestive) and diastolic (congestive) heart failure; J96.20 Acute and chronic respiratory failure, unspecified whether with hypoxia or hypercapnia; B02.7 Disseminated zoster; D84.821 Immunodeficiency due to drugs; I42.8 Other cardiomyopathies; Z95.810 Presence of automatic (implantable) cardiac defibrillator; I48.91 Unspecified atrial fibrillation; Z79.51 Long term (current) use of inhaled steroids; Z79.01 Long term (current) use of anticoagulants; Z79.891 Long term (current) use of opiate analgesic; J44.9 Chronic obstructive pulmonary disease, unspecified; Z79.60 Long term (current) use of unspecified immunomodulators and immunosuppressants; M06.9 Rheumatoid arthritis, unspecified; J43.9 Emphysema, unspecified; M79.7 Fibromyalgia; K21.9 Gastro-esophageal reflux disease without esophagitis; F17.210 Nicotine dependence, cigarettes, uncomplicated
CPT/HCPCS: 36415; 36600; 51702; 71045; 74018; 74176; 80048; 80053; 80061; 80156; 80202; 81003; 82803; 83036; 83605; 83690; 83735; 83880; 84100; 84145; 84443; 84484; 85025; 86140; 87040; 87486; 87581; 87633; 93005; 94640; 94660; 96365; 96375; 96376; 99285; C8929; C9113; J0133; J0153; J0282; J0696; J1160; J1940; J2270; J3370; J3490; J7050; J7060; Q9956

== ENCOUNTER → 2022-12-11 16:19 | Outpatient (BNVA) | payer MEDICARE, MEDICAID, SELFPAY | PROVIDERS: PCP Family Medicine; Visit Provider Internal Medicine Cardiovascular Disease | DX: Z45.02 Encounter for adjustment and management of automatic implantable cardiac defibrillator (principal) | CPT/HCPCS: 93296 ==

== ENCOUNTER 2023-01-16 09:12 | Outpatient (CLI) | payer MEDICARE, MEDICAID, SELFPAY ==
--- NOTE | 2023-01-16 09:30 | CT_ITS ---
WS: [id number] LDCT LUNG CANCER SCREENING TECHNIQUE: Noncontrast CT of the chest with coronal and sagittal reformatted images. CLINICAL INFORMATION: Cancer screen COMPARISON: 2020 DLP: 125.02 mGy.cm DIvol: Mean CTDIvol: 3.20 (mGy) All CT scans at [facility] use at least one of these dose optimization techniques: automat ed exposure control; mA and/or kV adjustment per patient size (includes targeted exams where dose is matched to clinical indication); or iterative reconstruction. FINDINGS: Moderate chronic centrilobular emphysematous changes. Fibrosis in the lung apices similar to previo us. A few tiny noncalcified nodules along the RIGHT fissures. No new suspicious pulm parenchymal abno rmalities. Normal caliber thoracic aorta. Mild aortic calcification. Prominent anterior mediastinal and AP windo w lymph nodes nonspecific but may be reactive and unchanged since 2020. No axillary lymphadenopathy. Adrenal glands are normal. Fatty atrophy of the pancreas. Normal GE junc tion. Air-fluid level in the stomach. IMPRESSION: CT/CT lung screening 25617 LUNG-RADS: 2-Benign Appearance or Behavior FOLLOW UP: 12 Month: Continue annual screening with LDCT
== END 2023-01-16 09:13 | disposition home or self-care (01) ==
LOC: RAD 09:12
PROVIDERS: PCP Family Medicine; Visit Provider Internal Medicine Pulmonary Disease
DX: Z12.2 Encounter for screening for malignant neoplasm of respiratory organs (principal); F17.210 Nicotine dependence, cigarettes, uncomplicated
CPT/HCPCS: 71271

== ENCOUNTER 2023-02-06 12:41 | Emergency (ER) | payer MEDICARE, MEDICAID, SELFPAY ==
[2023-02-06 12:49] VITALS: BP 150/65; PULSE 93; RESP 16; TEMP 36.5; O2SAT 93; BMI 36.3
--- NOTE | 2023-02-06 12:57 | XR_ITS ---
WS: [id number] Portable AP upright chest, 02/06/2023 Clinical Data: cough, wheeze Comparison: Portable chest, 11/21/2022 Findings: There is minimal patchy opacity in the right lower lobe. No nodules, masses or effusions ar e seen. The heart is normal. The pulmonary vascularity is not increased. No pneumonia or pneumothorax is seen. The single lead cardiac pacemaker remains in the same position. The diaphragms are flattene d. Impression: 1. Minimal patchy right lower lobe opacity which could represent pneumonia and/or atelectasis. 2. Cardiac pacemaker and hyperinflation.
--- NOTE | 2023-02-06 13:06 | ED_ITS ---
HPI - URI/Sore Throat General: Chief Complaint: Upper Respiratory Infection Stated Complaint: SOB/sore throat Time Seen by Provider: 02/06/23 12:53 Source: patient Mode of arrival: ambulatory Limitations: no limitations History of Present Illness: Patient is a 63-year-old female with an extensive past medical history here complaining of a sore throat, cough, fevers, congestion, body aches, fatigue ov er the past few days. She also has complaints of pain to the left side of her torso from where she was diagnosed with shingles back in October. Patient has a history of COPD. She continues to be an everyday smoker. Patient states she has not taken any of her inhaler/nebulizer treatments today. MD elicited complaint: fever, cough and sore throat Pertinent past history: COPD Onset (ago): day(s) Consistency: constant Severity: moderate Description of mucous: clear Able to tolerate fluids by mouth: Yes Associated symptoms: Reports fever(s); Deny abdominal pain, chest pain, diarrhea, headache(s), nasal congestion, nausea, sinus pain or vomiting Treatments prior to arrival: none Review of Systems Const: Reports: fever(s), body aches and fatigue Eyes: Denies: change in vision, blurry vision or photophobia ENMT: Reports: throat pain; Denies: nasal discharge, nasal congestion or sinus pain Card: Denies: chest pain, palpitations, irregular heart rhythm, lightheadedne ss, syncope or dyspnea on exertion Resp: Reports: dyspnea (chronic with her COPD), productive cough, wheezing and chest congestion; Denies: pain on inspiration or hemoptysis GI: Denies: abdominal pain, nausea, vomiting, heartburn or diarrhea : Denies: dysuria Musc: Denies: neck pain, back pain, extremity pain or joint pain Skin/Breast: Reports: rash (post shingles rash pain) Neuro: Denies: headache(s), numbness in extremities, weakness in extremities or sensory changes PFSH ED PFSH: Medical History Sinus tachycardia Emphysema/COPD Fibromyalgia CHF (congestive heart failure) Atrial flutter History of coronary angiogram COPD (chronic obstructive pulmonary disease) GERD (gastroesophageal reflux disease) Tobacco dependency Osteoarthritis Rheumatoid arthritis Atrial fibrillation Hypertension Nonischemic cardiomyopathy Ejection fraction 20% Hypotension Edema leg Surgical History AICD (automatic cardioverter/defibrillator) present S/P tonsillectomy H/O: hysterectomy Family History Father Cancer Mother Cancer Sister Cancer Other CAD (coronary artery disease) Hyperlipidemia Hypertension Lung disease Denies family history of Psychiatric illness Social History Smoking and tobacco/nicotine status: current every day tobacco/nicotine user cigarettes Packs smoked per day: 2 Years cigarettes smoked: 50 [ Other cigarette details: Started at age 10 years] Alcohol intake: never Substance/Drug Use: never Physical Exam Const: COMMON NORMALS: no acute distress, patient oriented x3 and alert GENERAL APPEARANCE: cooperative NUTRITIONAL APPEARANCE: overweight ORIENTATION/CONSCIOUSNESS: Yes awake, Yes oriented to person, Yes oriented to place and Yes oriented to time HENMT: THROAT: posterior oropharynx normal and tonsils normal Neck/C-Spine: COMMON NORMALS: no lymphadenopathy Chest: COMMONS NORMALS: normal inspection of the chest Resp: COMMON NORMALS: normal respiratory effort AUSCULTATION: rhonchi and wheezes throughout Cardio: COMMON NORMALS: regular rate and regular rhythm RATE: regular rate RHYTHM: regular rhythm GI: COMMON NORMALS: Normal to inspection, nondistended, normoactive bowel sounds present, Soft to palpation and non-tender PALPATION: Yes Soft to palpation Extremity: GENERAL: Yes normal exam except as noted Neuro: COMMON NORMALS: patient oriented x3 SENSORIUM/ORIENTATION: Yes alert, Yes oriented to person, Yes oriented to place and Yes oriented to time Skin: NARRATIVE SKIN EXAM: old/healing scarred rash across L torso from previous herpes zoster infection; there are no active lesions/vesicular formations at this time Course Vital Signs: Vital signs: Vital Signs Temperature 97.7 F 02/06/23 12:49 Pulse Rate 93 02/06/23 13:58 Respiratory Rate 16 02/06/23 13:49 Blood Pressure 176/80 02/06/23 13:24 Pulse Oximetry 99 02/06/23 13:49 Oxygen Delivery Me thod Nasal Cannula 02/06/23 13:49 Oxygen Flow Rate 2 02/06/23 13:49 MDM - URI/Sore Throat Medical Decision Making Patient here for viral-like illness as well as postherpetic neuralgia from shingles diagnosis back in October. Patient is already on gabapentin. She can speak to her primary care provider about increasing this further. We discussed topical capsaicin cream and/or topical lidocaine to help as well. Vital signs are stable upon arrival. She does have a history of COPD and normally wears oxygen mainly at night and during naps. She is not requiring it currently apart from a small period during her stay where she fell asleep and desatted briefly. Breathing/lung sounds improved after DuoNeb treatment. CXR obtained and shows a minimal patchy right lower lobe opacity representing possible pneumonia and/or atelectasis. Respiratory panel collected and pending. I will go ahead and place her on steroids and antibiotics for pneumonia coverage. Recommend follow-up with her primary care provider next week. Return ED precautions given. Differential Diagnosis Likely upper respiratory infection, viral infection and bronchitis All radiology interpretation(s) finalized by discharge Discharge Plan Discharge Patient Disposition: Home Clinical Impression: Post herpetic neuralgia COPD (chronic obstructive pulmonary disease) Qualifiers: COPD type: unspecified COPD Qualified Code(s): J44.9 - Chronic obstructive pulmonary disease, unspecified Right lower lobe pneumonia Qualifiers: Pneumonia type: due to unspecified organism Qualified Code(s): J18.9 - Pneumonia, unspecified organism Condition: Stable Prescriptions: New azithromycin 250 mg tablet See Rx Instructions .ROUTE .COMPLEX Qty: 6 0RF Rx Instructions: take 500 mg today (day 1), then 250 mg for 4 days (days 2-5) dexamethasone 6 mg tablet 6 mg PO DAILY Qty: 6 0RF amoxicillin-pot clavulanate 875-125 mg tablet 1 tab PO BID Qty: 14 0RF No Action ondansetron HCl 4 mg tablet 4 mg PO Q8H PRN (Reason: nausea and vomiting) fluticasone propionate [Flonase Allergy Relief] 50 mcg/actuation spray,suspension 1 spray intranasal BID Qty: 18 3RF Rx Instructions: administer into each nostril albuterol sulfate 90 mcg/actuation HFA aerosol inhaler 2 puff INHALATION Q6H PRN (Reason: shortness of breath) Qty: 8.5 3RF ipratropium-albuterol 0.5 mg-3 mg(2.5 mg base)/3 mL solution for nebulization 3 ml inhalation Q6H PRN (Reason: wheezing) Qty: 90 3RF sacubitril-valsartan 97-103 mg tablet 1 tab PO BID Qty: 180 3RF hydroxychloroquine 200 mg tablet 200 mg PO BID Qty: 60 2RF Hold Instructions: Resume on 02/27/22. metolazone 2.5 mg tablet 2.5 mg PO DAILY PRN (Reason: weight gain) Qty: 30 0RF Rx Instructions: Take 30 minutes before morning lasix dose montelukast [Singulair] 10 mg tablet 10 mg PO DAILY Qty: 90 3RF gabapentin 400 mg capsule 400 mg PO TID PRN (Reason: nerve pain) polyethylene glycol 3350 17 gram Powder In Packet 17 g PO DAILY PRN (Reason: constipation) Qty: 30 0RF metoprolol tartrate 50 mg Tablet 50 mg PO BID@0900,2100 Qty: 180 0RF Pacerone 200 mg Tablet See Rx Instructions .ROUTE .COMPLEX Qty: 180 0RF Rx Instructions: 400mg BID for 7 days, then 200mg BID Eliquis 5 mg tablet 5 mg PO BID Qty: 180 0RF Enbrel 50 mg/mL (1 mL) syringe 50 mg SUBCUT Q7D Hold Instructions: Resume on 12/01/22. Rx Instructions: ON THURSDAY furosemide 40 mg tablet 40 mg PO DAILY Jardiance 10 mg tablet 10 mg PO DAILY Trelegy Ellipta 100-62.5-25 mcg blister with device 1 inh inhalation DAILY carbamazepine 200 mg tablet 200 mg PO BID Qty: 20 0RF hydrocodone-acetaminophen 5-325 mg tablet 1 tab PO Q8H PRN (Reason: pain) Qty: 10 0RF Discharge Orders: Discharge ED (Routine); Ordered 02/06/23 Ordered By: Julia Barrera Referrals: Joni Duque MD [Primary Care Provider] - Activity Restrictions/Additional Instructions: As we discussed you can use [id number] capsaicin topical cream or lidocaine cream to help with your postherpetic neuralgia. You are already on gabapentin which is the oral drug of choice for treatment of this condition. Your CXR today showing possible right lower lobe pneumonia. We are placing you on steroids and antibiotics for this. Respiratory panel was collected and pe nding. You should receive notification of something test positive on this. Coding Level of Care Code ED Specification Manager for Kishan Sandhu
[2023-02-06 13:24] VITALS: BP 176/80; PULSE 78; RESP 22; O2SAT 96
[2023-02-06 13:49] VITALS: PULSE 91; RESP 16; O2SAT 99
[2023-02-06] MEDS: ipratropium-albuterol 3 mL Neb INHALATION (13:49)
[2023-02-06 13:58] VITALS: PULSE 93
[2023-02-06 14:29] VITALS: PULSE 75; O2SAT 95
[2023-02-06] MEDS: lidocaine 4% cream 5 gm 1 APPLIC TOPICAL (14:29)
[2023-02-06 15:50] LABS: Adenovirus Not Detected (NOT DETECT); Chlamydia Pneumoniae Not Detected (NOT DETECT); Coronavirus 229E,HKU1,NL63,OC4 Not Detected (NOT DETECT); Human Metapneumovirus Not Detected (NOT DETECT); Human Rhinovirus/Enterovirus Not Detected (NOT DETECT); Influenza A Not Detected (NOT DETECT); Influenza A H1 Not Detected (NOT DETECT); Influenza A H1-2009 Not Detected (NOT DETECT); Influenza A H3 Not Detected (NOT DETECT); Influenza B Not Detected (NOT DETECT); Mycoplasma Pneumoniae Not Detected (NOT DETECT); Parainfluenza Virus Type 1 Not Detected (NOT DETECT); Parainfluenza Virus Type 2 Not Detected (NOT DETECT); Parainfluenza Virus Type 3 Not Detected (NOT DETECT); Parainfluenza Virus Type 4 Not Detected (NOT DETECT); Respiratory Syncytial Virus B Not Detected (NOT DETECT); SARS-COV-2 Not Detected (NOT DETECT)
[2023-02-06 15:52] LABS: Respiratory Syncytial Virus A Detected (NOT DETECT)
--- NOTE | 2023-02-06 16:56 | PC.NURSE ---
this RN was unable to contact pt to inform her of her +RSV result but pt did not answer.
== END 2023-02-06 14:33 | disposition home or self-care (01) ==
PROVIDERS: Emergency Provider Physician Assistant; PCP Family Medicine
DX: J44.0 Chronic obstructive pulmonary disease with (acute) lower respiratory infection (principal); J18.9 Pneumonia, unspecified organism; B02.29 Other postherpetic nervous system involvement; Z79.01 Long term (current) use of anticoagulants; F17.210 Nicotine dependence, cigarettes, uncomplicated; I11.0 Hypertensive heart disease with heart failure; I50.9 Heart failure, unspecified; I43 Cardiomyopathy in diseases classified elsewhere; Z95.810 Presence of automatic (implantable) cardiac defibrillator
CPT/HCPCS: 71045; 87486; 87581; 87633; 94640; 99284

== ENCOUNTER → 2023-03-18 11:15 | Outpatient (BNVA) | payer MEDICARE, MEDICAID, SELFPAY | PROVIDERS: PCP Family Medicine; Visit Provider Internal Medicine Cardiovascular Disease | DX: Z45.02 Encounter for adjustment and management of automatic implantable cardiac defibrillator (principal) | CPT/HCPCS: 93296 ==

== ENCOUNTER 2023-06-03 20:03 | Emergency (ER) | payer MEDICARE, MEDICAID, SELFPAY ==
--- NOTE | 2023-06-03 20:05 | XR_ITS ---
WS: [id number] Examination: XR chest 1V portable [id number] Reason for Exam: sob Date: June 03, 2023 Comparison: February 06, 2023 Findings: The heart is prominent in size. A pacer defibrillator wires in place. The lung markings are mildly increased which is similar to the previous study. I suspect this is crop farmers fidelina in nature. There is no overt failure or large effusion. IMPRESSION: The heart is prominent in size. There is no failure. Chronic changes within the lungs are suspected.
[2023-06-03 20:18] VITALS: BP 106/68; PULSE 74; RESP 18; TEMP 36.5; O2SAT 87; BMI 41.1
[2023-06-03 20:55] VITALS: PULSE 67; RESP 24; O2SAT 94
[2023-06-03] MEDS: ipratropium-albuterol 3 mL Neb INHALATION (20:55)
--- NOTE | 2023-06-03 20:56 | ED_ITS ---
HPI - SOB/Dyspnea 2 General: Chief Complaint: Shortness of Breath/Dyspnea Stated Complaint: sob Time Seen by Provider: 06/03/23 20:29 History of Present Illness: HPI Narrative: Patient presents to the ER with shortness of breath that started approximately 3 days ago. Patient says she did have a fever and chills over the last 24 hours. Patient does have a history of COPD is on home oxygen at 2 L to 2-1/2 L/min at night only. Patient it does use albuterol inhalers and Flonase Lasix and metolazone, does have a history of heart failure and heart disease, Review of Systems 2 General: Reports: 10 or more systems reviewed and unremarkable except in HPI and below PFSH ED 2 PFSH: Medical History Sinus tachycardia Emphysema/COPD Fibromyalgia CHF (congestive heart failure) Atrial flutter History of coronary angiogram COPD (chronic obstructive pulmonary disease) GERD (gastroesophageal reflux disease) Tobacco dependency Osteoarthritis Rheumatoid arthritis Atrial fibrillation Hypertension Nonischemic cardiomyopathy Ejection fraction 20% Hypotension Edema leg Surgical History AICD (automatic cardioverter/defibrillator) present S/P tonsillectomy H/O: hysterectomy Family History Father Cancer Mother Cancer Sister Cancer Other CAD (coronary artery disease) Hyperlipidemia Hypertension Lung disease Denies family history of Psychiatric illness Social History Smoking and tobacco/nicotine status: current every day tobacco/nicotine user cigarettes Packs smoked per day: 2 Years cigarettes smoked: 50 [ Other cigarette details: Started at age 10 years] Alcohol intake: never Substance/Drug Use: never Physical Exam 2 Const: COMMON NORMALS: no acute distress, average body habitus, patient oriented x3, no limitations, healthy appearing, alert and well nourished HENMT: COMMON NORMALS: normocephalic, hearing grossly normal bilaterally, external ears normal, Normal external nose present, moist oral mucous membranes and oropharynx normal HEAD & SCALP: normocephalic NOSE: Normal external nose present EXTERNAL EAR: Yes external ears normal Neck/C-Spine: COMMON NORMALS: full ROM, no lymphadenopathy, supple, no meningeal signs and no JVD Chest: COMMONS NORMALS: normal inspection of the chest and normal palpation of entire chest wall Resp: COMMON NORMALS: normal respiratory effort, No retractions and No use of accessory muscles; negative for clear to auscultation bilaterally (Rhonchi and wheezing diffuse) AUSCULTATION: not clear to auscultation bilaterally (Rhonchi and wheezing diffuse) Cardio: COMMON NORMALS: no JVD, regular rate, regular rhythm, S1 normal heart sound present, S2 normal heart sound present, No gallops present (Cardio), No clicks present (Cardio), No murmurs present (Cardio) and No rub (Cardio) R ATE: regular rate RHYTHM: regular rhythm HEART SOUNDS: S1 normal heart sound present and S2 normal heart sound present GI: COMMON NORMALS: Normal to inspection, nondistended, normoactive bowel sounds present, Soft to palpation, non-tender, No hepatosplenomegaly present and no masses PALPATION: Yes Soft to palpation and Yes No hepatosplenomegaly present Neuro: COMMON NORMALS: patient oriented x3 SENSORIUM/ORIENTATION: Yes alert MENINGEAL SIGNS: Yes no meningeal signs Course 2 Vital Signs: Vital signs: Vital Signs Temperature 97.7 F 06/03/23 22:05 Pulse Rate 70 06/03/23 22:05 Respiratory Rate 20 H 06/03/23 22:05 Blood Pressure 106/68 06/03/23 22:05 Pulse Oximetry 94 06/03/23 22:05 Oxygen Delivery Me thod Nasal Cannula 06/03/23 20:55 Oxygen Flow Rate 3 06/03/23 20:55 MDM - SOB/Dyspnea Medical Decision Making Physical dam was performed lab work was obtained as well as chest x-ray, all of which was fairly benign except patient was positive for COVID. These results was discussed with the patient and her family. Patient already has home oxygen and breathing treatments at home we will place patient on a short course of prednisone and discharged home. Differential Diagnosis Likely acute exacerbation of chronic obstructive airways disease; Unlikely congestive heart failure, community acquired pneumonia, asthma with exacerbation or pulmonary embolism Medical Records I reviewed the patient's medical records. Lab Data I reviewed the patient's lab results. 06/03/23 21:10 06/03/23 21:10 Labs/Radiology: Laboratory Results WBC 4.51 10^3/uL (3.29-11.43) 06/03/23 21:10 RBC 4.48 10^6/uL (3.85-5.65) 06/03/23 21:10 Hgb 14.10 g/dL (11.27-16.99) 06/03/23 21:10 Hct 43.5 % (36-47) 06/03/23 21:10 MCV 97.1 fl (85-98) 06/03/23 21:10 MCH 31.5 pg (27-33) 06/03/23 21:10 MCHC 32.4 g/dL (30-55) 06/03/23 21:10 RDW 13.2 % (12.1-15.1) 06/03/23 21:10 Plt Count 148 10^3/cmm (157-399) L 06/03/23 21:10 MPV 10.2 fL (7.4-10.4) 06/03/23 21:10 Neut % (Auto) 47.8 % 06/03/23 21:10 Lymph % (Auto) 30.4 % 06/03/23 21:10 Garrett % (Auto) 20.2 % 06/03/23 21:10 Eos % (Auto) 0.7 % 06/03/23 21:10 Baso % (Auto) 0.7 % 06/03/23 21:10 Neut # (Auto) 2.16 10^3/uL (1.8-7.7) 06/03/23 21:10 Lymph # (Auto) 1.4 10^3/uL (0.8-4.8) 06/03/23 21:10 Garrett # (Auto) 0.9 10^3/uL (0.2-0.9) 06/03/23 21:10 Eos # (Auto) 0.0 10^3/uL (0.0-0.8) 06/03/23 21:10 Baso # (Auto) 0.0 10^3/uL (0.0-0.1) 06/03/23 21:10 Nucleated RBC % (auto) 0 % 06/03/23 21:10 Nucleated RBCs # 0.0 /100WBC 06/03/23 21:10 PT 12.50 SECONDS (12.1-14.9) 06/03/23 21:10 INR 0.91 (0.8-1.2) 06/03/23 21:10 Sodium 144 mmol/L (136-145) 06/03/23 21:10 Potassium 4.3 mmol/L (3.5-5.1) 06/03/23 21:10 Chloride 101 mmol/L (98-107) 06/03/23 21:10 Carbon Dioxide 32 mmol/L (22-29) H 06/03/23 21:10 Anion Gap 15.3 (5-19) 06/03/23 21:10 BUN 10 mg/dL (8-23) 06/03/23 21:10 Creatinine 0.9 mg/dL (0.5-0.9) 06/03/23 21:10 GFR Calculation 62.8 mL/min (90-130) L 06/03/23 21:10 Glucose 100 mg/dL (65-115) 06/03/23 21:10 Calculated Osmolality 297 mOsm/kg (285-295) H 06/03/23 21:10 Calcium 9.1 mg/dL (8.5-10.5) 06/03/23 21:10 Total Bilirubin 0.3 mg/dL (0.15-1.2) 06/03/23 21:10 AST 28 U/L (0-32) 06/03/23 21:10 ALT 15 U/L (0-33) 06/03/23 21:10 Alkaline Phosphatase 203 U/L (35-105) H 06/03/23 21:10 NT-Pro-B Natriuret Pep 416 pg/mL (0-125) H 06/03/23 21:10 Total Protein 7.1 g/dL (6.6-8.7) 06/03/23 21:10 Albumin 3.8 g/dL (3.5-5.2) 06/03/23 21:10 Globulin 3.3 g/dL (1.3-4.6) 06/03/23 21:10 Urine Color Yellow (Yellow) 06/03/23 20:45 Urine Appearance Sl hazy (CLEAR) A 06/03/23 20:45 Urine pH 5 (5-7) 06/03/23 20:45 Ur Specific [place] 1.010 (1.005-1.030) 06/03/23 20:45 Urine Protein Neg (Negative) 06/03/23 20:45 Urine Glucose (UA) 4+ (Normal) H 06/03/23 20:45 Urine Ketones Negative (Negative) 06/03/23 20:45 Urine Blood Neg (Negative) 06/03/23 20:45 Urine Nitrate Negative (Negative) 06/03/23 20:45 Urine Bilirubin Neg (Negative) 06/03/23 20:45 Urine Urobilinogen Neg mg/dL (Negative) 06/03/23 20:45 Ur Leukocyte Esterase Negative (Negative) 06/03/23 20:45 Urine RBC None /hpf (0-2) 06/03/23 20:45 Urine WBC None /hpf (0-5) 06/03/23 20:45 Ur Squamous Epith Cells 5-10 /hpf (0-5) H 06/03/23 20:45 Amorphous Sediment Not Reportable 06/03/23 20:45 Urine Bacteria Trace /hpf (NONE) 06/03/23 20:45 Urine Yeast 2+ /hpf H 06/03/23 20:45 Influenza Type A Ag negative (Negative) 06/03/23 20:50 Influenza Type B Ag negative (Negative) 06/03/23 20:50 SARS-CoV-2 Ag (Rapid) positive (Negative) H 06/03/23 20:50 All radiology interpretation(s) finalized by discharge Discharge Plan Discharge Patient Disposition: Home Clinical Impression: COVID Condition: Stable Prescriptions: New prednisone 50 mg tablet 50 mg PO DAILY Qty: 5 0RF No Action ondansetron HCl 4 mg tablet 4 mg PO Q8H PRN (Reason: nausea and vomiting) fluticasone propionate [Flonase Allergy Relief] 50 mcg/actuation spray,suspension 1 spray intranasal BID Qty: 18 3RF Rx Instructions: administer into each nostril albuterol sulfate 90 mcg/actuation HFA aerosol inhaler 2 puff INHALATION Q6H PRN (Reason: shortness of breath) Qty: 8.5 3RF ipratropium-albuterol 0.5 mg-3 mg(2.5 mg base)/3 mL solution for nebulization 3 ml inhalation Q6H PRN (Reason: wheezing) Qty: 90 3RF sacubitril-valsartan 97-103 mg tablet 1 tab PO BID Qty: 180 3RF hydroxychloroquine 200 mg tablet 200 mg PO BID Qty: 60 2RF Hold Instructions: Resume on 02/27/22. metolazone 2.5 mg tablet 2.5 mg PO DAILY PRN (Reason: weight gain) Qty: 30 0RF Rx Instructions: Take 30 minutes before morning lasix dose montelukast [Singulair] 10 mg tablet 10 mg PO DAILY Qty: 90 3RF gabapentin 400 mg capsule 400 mg PO TID PRN (Reason: nerve pain) polyethylene glycol 3350 17 gram Powder In Packet 17 g PO DAILY PRN (Reason: constipation) Qty: 30 0RF metoprolol tartrate 50 mg Tablet 50 mg PO BID@0900,2100 Qty: 180 0RF Pacerone 200 mg Tablet See Rx Instructions .ROUTE .COMPLEX Qty: 180 0RF Rx Instructions: 400mg BID for 7 days, then 200mg BID Eliquis 5 mg tablet 5 mg PO BID Qty: 180 0RF Enbrel 50 mg/mL (1 mL) syringe 50 mg SUBCUT Q7D Hold Instructions: Resume on 12/01/22. Rx Instructions: ON THURSDAY furosemide 40 mg tablet 40 mg PO DAILY Jardiance 10 mg tablet 10 mg PO DAILY Trelegy Ellipta 100-62.5-25 mcg blister with device 1 inh inhalation DAILY carbamazepine 200 mg tablet 200 mg PO BID Qty: 20 0RF hydrocodone-acetaminophen 5-325 mg tablet 1 tab PO Q8H PRN (Reason: pain) Qty: 10 0RF azithromycin 250 mg tablet See Rx Instructions .ROUTE .COMPLEX Qty: 6 0RF Rx Instructions: take 500 mg today (day 1), then 250 mg for 4 days (days 2-5) dexamethasone 6 mg tablet 6 mg PO DAILY Qty: 6 0RF amoxicillin-pot clavulanate 875-125 mg tablet 1 tab PO BID Qty: 14 0RF Discharge Orders: Discharge ED (Routine); Ordered 06/03/23 Ordered By: Luke Flores Referrals: Joni Duque MD [Primary Care Provider] - 1 week Patient Instructions: COVID-19 (Coronavirus Disease 2019) (ED) Coding Level of Care Code ED Feed Management Advisor for Kishan Sandhu
[2023-06-03 21:02] VITALS: PULSE 70
[2023-06-03 21:15] LABS: Basophils % 0.7 %; Eosinophils % 0.7 %; Hematocrit 43.5 % (36-47); Lymphocytes # 1.4 10^3/uL (0.8-4.8); Lymphocytes % 30.4 %; Mean Corpuscular HGB Conc 32.4 g/dL (30-55); Mean Corpuscular Hemoglobin 31.5 pg (27-33); Mean Corpuscular Volume 97.1 fl (85-98); Mean Platelet Volume 10.2 fL (7.4-10.4); Monocytes # 0.9 10^3/uL (0.2-0.9); Monocytes % 20.2 %; Neutrophils # 2.16 10^3/uL (1.8-7.7); Neutrophils % 47.8 %; Nucleated Red Blood Cells % 0 %; Platelet Count 148 10^3/cmm (157-399); Red Blood Count 4.48 10^6/uL (3.85-5.65); Red Cell Distribution Width 13.2 % (12.1-15.1); White Blood Count 4.51 10^3/uL (3.29-11.43)
[2023-06-03 21:16] LABS: Influenza A by IFA negative (Negative); Influenza B by IFA negative (Negative)
[2023-06-03 21:19] LABS: SARS Covid-2 Antigen positive (Negative)
[2023-06-03 21:33] LABS: INR 0.91 (0.8-1.2)
[2023-06-03 21:34] LABS: Add Urine Microscopic? YES; Bilirubin Urine Neg (Negative); Blood Urine Neg (Negative); Glucose Urine UA 4+ (Normal); Ketones Urine Negative (Negative); Leukocyte Esterase Urine Negative (Negative); Nitrate Urine Negative (Negative); Protein Urine Neg (Negative); Urine Appearance SL Hazy (CLEAR); Urine Color Yellow (Yellow); Urobilinogen Urine Neg (Negative); pH Urine 5 (5-7)
[2023-06-03 21:35] LABS: Add Urine Culture? Yes; Bacteria Urine TRACE /hpf
[2023-06-03 21:45] LABS: Alanine Aminotransferase 15 U/L (0-33); Albumin Level 3.8 g/dL (3.5-5.2); Alkaline Phosphatase 203 U/L (35-105); Blood Urea Nitrogen 10 mg/dL (8-23); Calcium 9.1 mg/dL (8.5-10.5); Carbon Dioxide 32 mmol/L (22-29); Chloride 101 mmol/L (98-107); Creatinine Clr Calc Pharmacy 80.5202; Globulin 3.3 g/dL (1.3-4.6); Glomerular Filtration Rate 62.8 mL/min (90-130); Glucose 100 mg/dL (65-115); NT Pro B Type Natriuretic Pept 416 pg/mL (0-125); Osmolality Calculated 297 mOsm/kg (285-295); Sodium 144 mmol/L (136-145); Total Bilirubin 0.3 mg/dL (0.15-1.2); Total Protein 7.1 g/dL (6.6-8.7)
[2023-06-03 21:47] LABS: Anion Gap 15.3 (5-19); Aspartate Amino Transferase 28 U/L (0-32); Potassium 4.3 mmol/L (3.5-5.1)
[2023-06-03 22:05] VITALS: BP 106/68; PULSE 70; RESP 20; TEMP 36.5; O2SAT 94
== END 2023-06-03 22:25 | disposition home or self-care (01) ==
PROVIDERS: Emergency Medicine; Emergency Provider Emergency Medicine; PCP Family Medicine
DX: U07.1 COVID-19 (principal); Z79.01 Long term (current) use of anticoagulants; F17.210 Nicotine dependence, cigarettes, uncomplicated; J44.9 Chronic obstructive pulmonary disease, unspecified; I11.0 Hypertensive heart disease with heart failure; I50.9 Heart failure, unspecified; I42.8 Other cardiomyopathies; Z95.810 Presence of automatic (implantable) cardiac defibrillator
CPT/HCPCS: 71045; 80053; 81001; 83880; 85025; 85610; 87086; 87426; 87804; 94640; 99285

== ENCOUNTER 2023-07-20 13:57 | Outpatient (CLI) | payer MEDICARE, MEDICAID, SELFPAY ==
--- NOTE | 2023-07-20 14:00 | MM_ITS ---
WS: [id number] BILATERAL 3D TOMOSYNTHESIS DIGITAL SCREENING MAMMOGRAPHY WITH CAD CLINICAL INFORMATION: SCREENING HISTORY: Screening mammogram. No current complaints. COMPARISON: 2021 TECHNIQUE: Bilateral CC and MLO views. FINDINGS: Scattered fibroglandular densities bilaterally. No suspicious focal mass, asymmetry, calcifications, or architectural distortion. No evidence of malignancy. Incidental punctate calcifications. Vascular calcifications. Small bilateral ovoid nodules are unchanged. MM/[place] [id number] IMPRESSION: BI-RADS: 2-Benign FOLLOW UP: 1 Year Follow-up Recommend return to annual screening mammography.
== END 2023-07-20 13:58 | disposition home or self-care (01) ==
LOC: RAD 13:57
PROVIDERS: PCP Family Medicine; Visit Provider Family Medicine
DX: Z12.31 Encounter for screening mammogram for malignant neoplasm of breast (principal)
CPT/HCPCS: 77063; 77067

== ENCOUNTER 2023-12-28 16:34 | Inpatient (IN) | payer MEDICARE, MEDICAID, SELFPAY ==
[2023-12-28] VITALS (23 sets, daily range): BP systolic 74–145; BP diastolic 36–95; PULSE 75–170; RESP 18–27; TEMP 36.4–36.5; O2SAT 90–100
--- NOTE | 2023-12-28 16:40 | ECG_ITS ---
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 Measurements Intervals [place] Rate: 169 P: 0 IN: 0 QRS: 75 QRSD: 129 T: 87 QT: 291 QTc: 488 Interpretive Statements Possible atrial flutter with rapid ventricular rate MODERATE INTRAVENTRICULAR CONDUCTION DELAY [110+ ms QRS DURATION] NONSPECIFIC ST & T-WAVE ABNORMALITY CRITICAL TEST RESULT Compared to ECG 11/21/2022 20:16:16 Possible ischemia no longer present Myocardial infarct finding no longer present T-wave abnormality still present Electronically Signed On 12-28-2023 23:54:22 CDT by Dangelo Florez M.D. [id number]
--- NOTE | 2023-12-28 16:54 | XRR_ITS ---
PROCEDURE INFORMATION: Exam: XR Chest Exam date and time: 12/28/2023 5:16 PM Age: 63 years old Clinical indication: Pain; Chest pressure; Prior surgery; Surgery date: 6+ months; Surgery type: Pacer; Additional info: Cp TECHNIQUE: Imaging protocol: Radiologic exam of the chest. Views: 1 view. COMPARISON: CR XR chest 1V portable [id number] 06/03/2023 9:23 PM FINDINGS: Tubes, catheters and devices: Cardiac pacemaker on the left with leads in satisfactory position. Lungs: Both lungs demonstrate diffuse interstitial coarsening which is felt to be chronic. No lung mass or infiltrate. Pleural spaces: Unremarkable. No pleural effusion. No pneumothorax. Heart/Mediastinum: Mild cardiomegaly is noted. Bones/joints: Unremarkable. XR/XR chest 1V portable [id number] IMPRESSION: No acute findings.
--- NOTE | 2023-12-28 17:09 | ED_ITS ---
HPI - Arrhythmia/Palpitations 2 General: Chief Complaint: Arrhythmia/Palpitations Stated Complaint: Afib? sent from [facility] Time Seen by Provider: 12/28/23 16:49 Source: patient Mode of arrival: ambulatory Limitations: no limitations History of Present Illness: 63-year-old female states that she has a history of A-fib multiple her medical issues as well she has an AICD states she has been in A-fib all week and states that she had been shocked multiple times by her defibrillator. Patient states she has been having some mild chest pain she states mainly after the shocks. Denies any increased shortness of breath. Heart rate here is in the 160s Associated symptoms: Deny nausea or vomiting Related Data Home Medications Medication Instructions Recorded Confirmed gabapentin 400 mg capsule 400 mg PO TID PRN nerve pain 11/14/19 11/22/22 ondansetron HCl 4 mg tablet 4 mg PO Q8H PRN nausea and vomiting 12/20/21 11/22/22 etanercept 50 mg/mL (1 mL) 50 mg SUBCUT Q7D 10/25/22 11/22/22 subcutaneous syringe (Enbrel) fluticasone fur. 100 mcg-umeclid 1 inh inhalation DAILY 10/25/22 11/22/22 62.5 mcg-vilant 25 mcg inhalat.powder (Trelegy Ellipta) Previous Rx's Medication Instructions Recorded hydroxychloroquine 200 mg tablet 200 mg PO BID #60 tabs 02/18/21 metolazone 2.5 mg tablet 2.5 mg PO DAILY PRN weight gain 03/21/21 #30 tabs fluticasone propionate 50 1 spray intranasal BID #18 mL 12/20/21 mcg/actuation nasal spray,suspension (Flonase Allergy Relief) apixaban 5 mg tablet (Eliquis) 5 mg PO BID #180 tabs 02/22/22 albuterol sulfate 90 mcg/actuation 2 puff inhalation Q6H PRN 03/21/22 aerosol inhaler shortness of breath #8.5 grams ipratropium 0.5 mg-albuterol 3 mg 3 ml inhalation Q6H PRN wheezing 07/22/22 (2.5 mg base)/3 mL nebulization #90 mL soln sacubitril 97 mg-valsartan 103 mg 1 tab PO BID #180 tabs 07/22/22 tablet montelukast 10 mg tablet 10 mg PO DAILY #90 tabs 10/16/22 (Singulair) carbamazepine 200 mg tablet 200 mg PO BID #20 tabs 11/17/22 hydrocodone 5 mg-acetaminophen 325 1 tab PO Q8H PRN pain #10 tabs 11/17/22 mg tablet polyethylene glycol 3350 17 gram 17 g PO DAILY PRN constipation #30 11/24/22 oral powder packet ea amoxicillin 875 mg-potassium 1 tab PO BID #14 tabs 02/06/23 clavulanate 125 mg tablet azithromycin 250 mg tablet See Rx Instructions PO .COMPLEX #6 02/06/23 tabs dexamethasone 6 mg tablet 6 mg PO DAILY #6 tabs 02/06/23 prednisone 50 mg tablet 50 mg PO DAILY #5 tabs 06/03/23 metoprolol tartrate 50 mg tablet 50 mg PO BID@0900,2100 #180 tabs 07/21/23 amiodarone 100 mg tablet See Rx Instructions .Route 08/19/23 .COMPLEX #90 tabs empagliflozin 10 mg tablet See Rx Instructions .Route 11/13/23 (Jardiance) .COMPLEX #90 tabs furosemide 40 mg tablet See Rx Instructions .Route 12/28/23 .COMPLEX #90 tabs Allergies Allergy/AdvReac Type Severity Reaction Status Date / Time dronedarone Allergy Severe rash, Verified 11/20/22 08:18 swelling doxacurium Allergy HIVES,RASH Verified 11/20/22 08:18 sulfamethoxazole Allergy ALGY-Rash Verified 11/20/22 08:18 [From Bactrim] trimethoprim [From Bactrim] Allergy ALGY-Rash Verified 11/20/22 08:18 Review of Systems 2 Const: Denies: fever(s), chills, body aches or change in appetite ENMT: Denies: throat pain or dental pain Card: Reports: chest pain and palpitations Resp: Denies: dyspnea GI: Denies: abdominal pain, nausea, vomiting or diarrhea Musc: Denies: neck pain or back pain Skin/Breast: Denies: rash Neuro: Denies: headache(s) PFSH ED 2 PFSH: Medical History Sinus tachycardia Emphysema/COPD Fibromyalgia CHF (congestive heart failure) Atrial flutter History of coronary angiogram COPD (chronic obstructive pulmonary disease) GERD (gastroesophageal reflux disease) Tobacco dependency Osteoarthritis Rheumatoid arthritis Atrial fibrillation Hypertension Nonischemic cardiomyopathy Ejection fraction 20% Hypotension Edema leg Surgical History AICD (automatic cardioverter/defibrillator) present S/P tonsillectomy H/O: hysterectomy Family History Father Cancer Mother Cancer Sister Cancer Other CAD (coronary artery disease) Hyperlipidemia Hypertension Lung disease Denies family history of Psychiatric illness Social History Smoking and tobacco/nicotine status: current every day tobacco/nicotine user cigarettes Packs smoked per day: 2 Years cigarettes smoked: 50 [ Other cigarette details: Started at age 10 years] Alcohol intake: never Substance/Drug Use: never Physical Exam 2 Const: COMMON NORMALS: patient oriented x3 HENMT: COMMON NORMALS: normocephalic and atraumatic HEAD & SCALP: n ormocephalic and atraumatic Eye: COMMON NORMALS: conjunctivae normal CONJUNCTIVA: Yes conjunctivae normal Neck/C-Spine: COMMON NORMALS: full ROM and supple Chest: COMMONS NORMALS: normal inspection of the chest and normal palpation of entire chest wall Resp: COMMON NORMALS: normal respiratory effort, No retractions, No use of accessory muscles and clear to auscultation bilaterally AUSCULTATION: clear to auscultation bilaterally Cardio: RATE: tachycardic RHYTHM: abnormal rhythm irregularly irregular GI: COMMON NORMALS: Normal to inspection, nondistended, normoactive bowel sounds present, Soft to palpation, non-tender and no masses PALPATION: Yes Soft to palpation Extremity: COMMON NORMALS: normal to inspection and full ROM Neuro: COMMON NORMALS: patient oriented x3, moves all extremities and no focal motor deficits Psych: COMMON NORMALS: mental status grossly normal, Normal thought process present and cooperative THOUGHT PROCESS: Normal thought process present Skin: COMMON NORMALS: no rashes or lesions noted and no wounds GENERAL SKIN EXAM: no rashes or lesions noted Procedures Procedural Sedation Indication: other (cardioversion) ASA Class: II Time of Last PO Intake: 12:00 Preparation: awake overnight monitor applied and pulse oximeter IV Etomidate dose (mg): 10 Course 2 Vital Signs: Vital signs: Vital Signs Temperature 97.7 F 12/28/23 17:01 Pulse Rate 76 12/28/23 18:41 Respiratory Rate 20 H 12/28/23 18:41 Blood Pressure 118/64 12/28/23 18:41 Pulse Oximetry 99 12/28/23 18:41 Oxygen Delivery Me thod Room Air 12/28/23 18:41 Oxygen Flow Rate 2 12/28/23 17:30 MDM - Arrhythmia/Palpitations Medical Decision Making Patient presents here with A-fib with RVR she was hypotensive as well did cardiovert here here synchronized she is now in a normal sinus rhythm her blood pressure is improved as well spoke to hospitalist will admit. Medical Records I reviewed the patient's medical records. Lab Data I reviewed the patient's lab results. 12/28/23 17:10 12/28/23 17:10 Radiology Impressions Chest X-Ray 12/28/23 16:54 IMPRESSION: No acute findings. Laboratory Results WBC 12.51 10^3/uL (3.29-11.43) H 12/28/23 17:10 RBC 4.35 10^6/uL (3.85-5.65) 12/28/23 17:10 Hgb 13.50 g/dL (11.27-16.99) 12/28/23 17:10 Hct 43.6 % (36-47) 12/28/23 17:10 MCV 100.2 fl (85-98) H 12/28/23 17:10 MCH 31.0 pg (27-33) 12/28/23 17:10 MCHC 31.0 g/dL (30-55) 12/28/23 17:10 RDW 13.3 % (12.1-15.1) 12/28/23 17:10 Plt Count 150 10^3/cmm (157-399) L 12/28/23 17:10 MPV 10.4 fL (7.4-10.4) 12/28/23 17:10 Neut % (Auto) 65.0 % 12/28/23 17:10 Lymph % (Auto) 25.4 % 12/28/23 17:10 [place] % (Auto) 8.3 % 12/28/23 17:10 Eos % (Auto) 0.6 % 12/28/23 17:10 Baso % (Auto) 0.3 % 12/28/23 17:10 Neut # (Auto) 8.12 10^3/uL (1.8-7.7) H 12/28/23 17:10 Lymph # (Auto) 3.2 10^3/uL (0.8-4.8) 12/28/23 17:10 [place] # (Auto) 1.0 10^3/uL (0.2-0.9) H 12/28/23 17:10 Eos # (Auto) 0.1 10^3/uL (0.0-0.8) 12/28/23 17:10 Baso # (Auto) 0.0 10^3/uL (0.0-0.1) 12/28/23 17:10 Nucleated RBC % (auto) 0 % 12/28/23 17:10 Nucleated RBCs # 0.0 /100WBC 12/28/23 17:10 PT 13.00 SECONDS (12.1-14.9) 12/28/23 17:10 INR 0.95 (0.8-1.2) 12/28/23 17:10 Sodium 141 mmol/L (136-145) 12/28/23 17:10 Potassium 4.2 mmol/L (3.5-5.1) 12/28/23 17:10 Chloride 105 mmol/L (98-107) 12/28/23 17:10 Carbon Dioxide 26 mmol/L (22-29) 12/28/23 17:10 Anion Gap 14.2 (5-19) 12/28/23 17:10 BUN 22 mg/dL (8-23) 12/28/23 17:10 Creatinine 1.1 mg/dL (0.5-0.9) H 12/28/23 17:10 GFR Calculation 49.8 mL/min (90-130) L 12/28/23 17:10 Glucose 92 mg/dL (65-115) 12/28/23 17:10 Calculated Osmolality 295 mOsm/kg (285-295) 12/28/23 17:10 Calcium 8.8 mg/dL (8.5-10.5) 12/28/23 17:10 Magnesium 2.2 mg/dL (1.7-2.3) 12/28/23 17:10 Total Bilirubin 0.3 mg/dL (0.15-1.2) 12/28/23 17:10 AST 41 U/L (0-32) H 12/28/23 17:10 ALT 66 U/L (0-33) H 12/28/23 17:10 Alkaline Phosphatase 204 U/L (35-105) H 12/28/23 17:10 Troponin T Baseline 16 ng/L (0-10) H 12/28/23 17:10 Total Protein 6.7 g/dL (6.6-8.7) 12/28/23 17:10 Albumin 3.9 g/dL (3.5-5.2) 12/28/23 17:10 Globulin 2.8 g/dL (1.3-4.6) 12/28/23 17:10 No radiology studies performed this visit EKG Data EKG 1: I personally reviewed and interpreted this EKG as follows: EKG interpretation date: 12/28/23 EKG interpretation time: 16:40 Interpretation: afib rvr hr [address] elevation qrs 129 qtc 383 Other EKG comments: Chest X-Ray 12/28/23 16:54 IMPRESSION: No acute findings. EKG 2: I personally reviewed and interpreted this EKG as follows: EKG interpretation date: 12/28/23 EKG interpretation time: 17:37 Interpretation: nsr hr [address] elevation qrs 121 qtc 417 Other EKG comments: Chest X-Ray 12/28/23 16:54 IMPRESSION: No acute findings. Critical Care Time 2 Critical Care Time: Critical Care Time: Yes Total Critical Care Time: 50 Attestation: The high probability of a clinically significant, sudden or life threatening deterioration of the patient's cv system(s) required my full and direct attention, intervention and personal management. The critical care time is as shown. This time is in addition to time spent performing any reported procedures but includes the following: [x] Data and vital sign review and interpretation [x] Patient assessment, examination and intervention [x] Documentation [x] Medication orders and management Discharge Plan Discharge Patient Disposition: Admitted As Inpatient Admit Provider: Felipe Martin Clinical Impression: Atrial fibrillation with rapid ventricular response Condition: Stable Coding Level of Care Code ED [place] for Chg Edson
[2023-12-28] MEDS: amiodarone 150 MG/100 ML PREMIX 400 MG IV (17:20)
[2023-12-28 17:27] LABS: Basophils % 0.3 %; Eosinophils # 0.1 10^3/uL (0.0-0.8); Eosinophils % 0.6 %; Hematocrit 43.6 % (36-47); Lymphocytes # 3.2 10^3/uL (0.8-4.8); Lymphocytes % 25.4 %; Mean Corpuscular Volume 100.2 fl (85-98); Mean Platelet Volume 10.4 fL (7.4-10.4); Monocytes % 8.3 %; Neutrophils # 8.12 10^3/uL (1.8-7.7); Nucleated Red Blood Cells % 0 %; Platelet Count 150 10^3/cmm (157-399); Red Blood Count 4.35 10^6/uL (3.85-5.65); Red Cell Distribution Width 13.3 % (12.1-15.1); White Blood Count 12.51 10^3/uL (3.29-11.43)
[2023-12-28] MEDS: etomidate 2 mg/mL INJ SDV 10 mL 10 MG IVP (17:34)
--- NOTE | 2023-12-28 17:37 | ECG_ITS ---
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 Measurements Intervals [place] Rate: 80 P: -5 NV: 156 QRS: 71 QRSD: 121 T: 92 QT: 381 QTc: 440 Interpretive Statements SINUS RHYTHM WITH OCCASIONAL SUPRAVENTRICULAR PREMATURE COMPLEXES MODERATE INTRAVENTRICULAR CONDUCTION DELAY [110+ ms QRS DURATION] MODERATE ST DEPRESSION [0.05+ mV ST DEPRESSION] Compared to ECG 12/28/2023 16:40:25 ST (T wave) deviation now present T-wave abnormality no longer present Electronically Signed On 12-28-2023 23:54:28 CDT by Dangelo Florez M.D. [id number]
--- NOTE | 2023-12-28 17:38 | PC.NURSE ---
PT HR 160S 1735: ETOMIDATE 10MG GIVEN 1737: ZOLL CHARGED 200, PT SHOCKED. PT HR DECREASED 82 SR.
[2023-12-28 17:41] LABS: INR 0.95 (0.8-1.2)
[2023-12-28 17:46] LABS: Troponin(5th) Baseline 16 ng/L (0-10)
[2023-12-28 17:48] LABS: Alanine Aminotransferase 66 U/L (0-33); Albumin Level 3.9 g/dL (3.5-5.2); Alkaline Phosphatase 204 U/L (35-105); Anion Gap 14.2 (5-19); Aspartate Amino Transferase 41 U/L (0-32); Blood Urea Nitrogen 22 mg/dL (8-23); Calcium 8.8 mg/dL (8.5-10.5); Carbon Dioxide 26 mmol/L (22-29); Chloride 105 mmol/L (98-107); Creatinine Clr Calc Pharmacy 63.6895; Globulin 2.8 g/dL (1.3-4.6); Glomerular Filtration Rate 49.8 mL/min (90-130); Glucose 92 mg/dL (65-115); Magnesium 2.2 mg/dL (1.7-2.3); Osmolality Calculated 295 mOsm/kg (285-295); Potassium 4.2 mmol/L (3.5-5.1); Sodium 141 mmol/L (136-145); Total Bilirubin 0.3 mg/dL (0.15-1.2); Total Protein 6.7 g/dL (6.6-8.7)
--- NOTE | 2023-12-28 18:13 | USCV_ITS ---
Shana Roy Age: 63 Gender: F : 1960 Exam Date: 12/28/2023 19:36 Ordering Phys: Felipe Martin MD Technologist: ANDREA Exam Location: [facility] [place] Indication: Atrial fibrillation BP: 118 / 64 HR: 75 Rhythm: paced rhythm, no atrial fibrillation at time of exam Technical Quality: Adequate MEASUREMENTS (Male / Female) Normal Values 2D ECHO LV Diastolic Diameter PLAX 6.2 cm 4.2 - 5.9 / 3.9 - 5.3 cm IVS Diastolic Thickness 1.5 cm 0.6 - 1.0 / 0.6 - 0.9 cm IVS Systolic Thickness 1.9 cm LVPW Diastolic Thickness 1.5 cm 0.6 - 1.0 / 0.6 - 0.9 cm LVPW Systolic Thickness 2.0 cm LVOT Diameter 2.5 cm LV Ejection Fraction 2D Teich 20.3 % LV Ejection Fraction MOD 4C 32.8 % LV Ejection Fraction MOD 2C 45.6 % LV Ejection Fraction 2C AL 46.9 % LA Diameter 4.2 cm Aorta at Sinotubular Diameter 2.9 cm IVC Diameter 1.9 cm M-MODE LA Ao Ratio MM 1.6 AV Cusp Separation MM 2.0 cm DOPPLER AV Peak Velocity 114.0 cm/s LVOT Peak Velocity 57.0 cm/s AV Area Cont Eq vti 1.9 cm squared AV Area Cont Eq pk 2.4 cm squared MV Peak Velocity 123.0 cm/s MV Area PHT 4.1 cm squared Mitral E to A Ratio 1.5 PV Peak Velocity 76.0 cm/s FINDINGS Left Ventricle Moderately increased left ventricular cavity size. Severely decreased left ventricular systolic function. Global left ventricular hypokinesis. Left ventricular ejection fraction is estimated at 20 %. Grade II/IV diastolic dysfunction, moderately elevated filling pressures. Right Ventricle The right ventricle is normal in size and function. Right Atrium The right atrium is normal in size. Left Atrium Moderately increased left atrial size. Mitral Valve Moderately thickened mitral valve. Mild mitral annular calcification.no mitral valve stenosis. Severe mitral valve regurgitation. Aortic Valve Structurally normal aortic valve without significant sclerosis or stenosis. There is no aortic regurgitation. Tricuspid Valve Structurally normal tricuspid valve without significant stenosis or regurgitation. Pulmonary artery systolic pressure is normal. Pulmonic Valve Structurally normal pulmonic valve without significant stenosis. There is no pulmonic regurgitation. Pericardium Normal pericardium without effusion. Aorta Normal ascending aorta dimension. IVC The inferior vena cava appears normal. CONCLUSIONS Moderately increased left ventricular cavity size. Severely decreased left ventricular systolic function. Global left ventricular hypokinesis. Left ventricular ejection fraction is estimated at 20 %. Grade II/IV diastolic dysfunction, moderately elevated filling pressures. Moderately increased left atrial size. Moderately thickened mitral valve. Mild mitral annular calcification.no mitral valve stenosis. Severe mitral valve regurgitation. Structurally normal aortic valve without significant sclerosis or stenosis. There is no aortic regurgitation. There is no pericardial effusion. Right atrial pressure is around 5 mm of mercury. Cristel Hayes MD (Electronically Signed) Final Date: 30 December 2023 22:00 S
--- NOTE | 2023-12-28 18:21 | P.HP_ITS ---
Providers/Chief Complaint 2 Admitting Physician: Felipe Martin MD Primary Care Provider: Joni Duque MD Chief Complaint: Afib? sent from [facility] History of Present Illness Shana Roy is a 63 year old female with a past medical history of nonischemic cardiomyopathy, diastolic dysfunction, systolic CHF, atrial fibrillation, COPD, current smoker, history of rheumatoid arthritis, who presents [facility] due to shortness of breath, lower extremity edema, chest palpitations, feeling as if her defibrillator has gone off for the last week. Currently patient is alert oriented x 3, following all commands, she has been cardioverted by the ER provider, she is in normal sinus rhythm, currently on amiodarone drip, currently on 5 L, she is alert oriented x 3, following all commands, blood pressure 112/62, pulse is 86, respiratory rate 15. Patient tells me that for the last week, she has been feeling increasingly short of breath, increasing short of breath with exertion with lower extreme edema, she was seen by her primary care provider diagnosed with pneumonia, she has had a productive cough, increased sputum production, with shortness of breath, with wheezing, she does report smoking, denies lightheadedness, no dizziness. She does report chest palpitations, she reports compliance with her medications but her daughter at bedside tells me that she is not compliant at times. She tells me that she has not taken her Eliquis in over a year, as she ran out of refills. She does report increased urinary frequency, no flank pain,. No headache, blurry vision, no focal weakness no focal paresthesias. She does report anterior chest discomfort, she feels as if her defibrillator has gone off a couple times during the week, does report chest palpitations. In the emergency room she was found to have A-fib with RVR with hypotension, was started on amiodarone drip but due to persistent hypotension she was in A-fib with RVR, she was cardioverted by ER provider. Review of Systems 2 Const: Reports: chills, fatigue and malaise Eyes: Denies: change in vision Card: Reports: chest pain and palpitations Resp: Reports: dyspnea and productive cough GI: Denies: abdominal pain : Denies: flank pain Neuro: Denies: headache(s), numbness in extremities, weakness in extremities, frequent falls or dizziness Endo: Reports: polyuria Medications/Allergies Home Medications Medication Instructions Recorded Confirmed Last Taken Type gabapentin 400 mg capsule 400 mg PO TID PRN nerve pain 11/14/19 11/22/22 10/25/22 History hydroxychloroquine 200 mg tablet 200 mg PO BID #60 tabs 02/18/21 11/22/22 10/25/22 Rx metolazone 2.5 mg tablet 2.5 mg PO DAILY PRN weight gain 03/21/21 11/22/22 10/25/22 Rx #30 tabs fluticasone propionate 50 1 spray intranasal BID #18 mL 12/20/21 11/22/22 03/10/22 Rx mcg/actuation nasal spray,suspension (Flonase Allergy Relief) ondansetron HCl 4 mg tablet 4 mg PO Q8H PRN nausea and vomiting 12/20/21 11/22/22 03/09/22 History apixaban 5 mg tablet (Eliquis) 5 mg PO BID #180 tabs 02/22/22 11/22/22 10/25/22 Rx albuterol sulfate 90 mcg/actuation 2 puff inhalation Q6H PRN 03/21/22 11/22/22 Unknown Rx aerosol inhaler shortness of breath #8.5 grams ipratropium 0.5 mg-albuterol 3 mg 3 ml inhalation Q6H PRN wheezing 07/22/22 11/22/22 Unknown Rx (2.5 mg base)/3 mL nebulization #90 mL soln sacubitril 97 mg-valsartan 103 mg 1 tab PO BID #180 tabs 07/22/22 11/22/22 10/25/22 Rx tablet montelukast 10 mg tablet 10 mg PO DAILY #90 tabs 10/16/22 11/22/22 10/25/22 Rx (Singulair) etanercept 50 mg/mL (1 mL) 50 mg SUBCUT Q7D 10/25/22 11/22/22 Unknown History subcutaneous syringe (Enbrel) fluticasone fur. 100 mcg-umeclid 1 inh inhalation DAILY 10/25/22 11/22/22 Unknown History 62.5 mcg-vilant 25 mcg inhalat.powder (Trelegy Ellipta) carbamazepine 200 mg tablet 200 mg PO BID #20 tabs 11/17/22 11/22/22 Unknown Rx hydrocodone 5 mg-acetaminophen 325 1 tab PO Q8H PRN pain #10 tabs 11/17/22 11/22/22 Unknown Rx mg tablet polyethylene glycol 3350 17 gram 17 g PO DAILY PRN constipation #30 11/24/22 Unknown Rx oral powder packet ea amoxicillin 875 mg-potassium 1 tab PO BID #14 tabs 02/06/23 Unknown Rx clavulanate 125 mg tablet azithromycin 250 mg tablet See Rx Instructions PO .COMPLEX #6 02/06/23 Unknown Rx tabs dexamethasone 6 mg tablet 6 mg PO DAILY #6 tabs 02/06/23 Unknown Rx prednisone 50 mg tablet 50 mg PO DAILY #5 tabs 06/03/23 Unknown Rx metoprolol tartrate 50 mg tablet 50 mg PO BID@0900,2100 #180 tabs 07/21/23 Unknown Rx amiodarone 100 mg tablet See Rx Instructions .Route 08/19/23 Unknown Rx .COMPLEX #90 tabs empagliflozin 10 mg tablet See Rx Instructions .Route 11/13/23 Unknown Rx (Jardiance) .COMPLEX #90 tabs furosemide 40 mg tablet See Rx Instructions .Route 12/28/23 Unknown Rx .COMPLEX #90 tabs Allergies Allergy/AdvReac Type Severity Reaction Status Date / Time dronedarone Allergy Severe rash, Verified 11/20/22 08:18 swelling doxacurium Allergy HIVES,RASH Verified 11/20/22 08:18 sulfamethoxazole Allergy ALGY-Rash Verified 11/20/22 08:18 [From Bactrim] trimethoprim [From Bactrim] Allergy ALGY-Rash Verified 11/20/22 08:18 PFSH Acute 2 PFSH: Medical History Sinus tachycardia Emphysema/COPD Fibromyalgia CHF (congestive heart failure) Atrial flutter History of coronary angiogram COPD (chronic obstructive pulmonary disease) GERD (gastroesophageal reflux disease) Tobacco dependency Osteoarthritis Rheumatoid arthritis Atrial fibrillation Hypertension Nonischemic cardiomyopathy Ejection fraction 20% Hypotension Edema leg Surgical History AICD (automatic cardioverter/defibrillator) present S/P tonsillectomy H/O: hysterectomy Family History Father Cancer Mother Cancer Sister Cancer Other CAD (coronary artery disease) Hyperlipidemia Hypertension Lung disease Denies family history of Psychiatric illness Social History Smoking and tobacco/nicotine status: current every day tobacco/nicotine user cigarettes Packs smoked per day: 2 Years cigarettes smoked: 50 [ Other cigarette details: Started at age 10 years] Alcohol intake: never Substance/Drug Use: never Vitals/I&O/Wt Last Vital Signs Temp 97.7 F 12/28/23 17:01 Pulse 86 12/28/23 17:53 Resp 24 H 12/28/23 17:53 BP 112/62 12/28/23 17:53 Pulse Ox 95 12/28/23 17:53 O2 Del Method Room Air 12/28/23 17:53 O2 Flow Rate 2 12/28/23 17:30 12/28/23 12/28/23 12/28/23 06:59 14:59 22:59 Intake Total 100 / 100 Balance 100 / 100 Weight last 48 hrs Weight 108.862 kg Physical Exam 2 Const: COMMON NORMALS: no acute distress and patient oriented x3 HENMT: COMMON NORMALS: normocephalic HEAD & SCALP: normocephalic Eye: COMMON NORMALS: Equal, round and reactive pupils present Neck/C-Spine: COMMON NORMALS: no JVD Resp: COMMON NORMALS: normal respiratory effort, No retractions, No use of accessory muscles and clear to auscultation bilaterally AUSCULTATION: c rackles and wheezes Cardio: COMMON NORMALS: no JVD, regular rate, regular rhythm, S1 normal heart sound present and S2 normal heart sound present RATE: regular rate RHYTHM: regular rhythm HEART SOUNDS: S1 normal heart sound present and S2 normal heart sound present GI: COMMON NORMALS: Normal to inspection, nondistended, normoactive bowel sounds present, Soft to palpation and non-tender Back/Pelvis: OTHER: 2+ pitting edema Extremity: COMMON NORMALS: no calf tenderness Neuro: COMMON NORMALS: patient oriented x3, CN's II-XII intact bilaterally and moves all extremities Psych: COMMON NORMALS: mental status grossly normal Data 12/28/23 17:10 12/28/23 17:10 A&P Assessment and plan (1) Acute hypoxic respiratory failure: (2) Systolic CHF, acute on chronic: (3) Nonischemic cardiomyopathy: (4) Atrial fibrillation with controlled ventricular response: (5) Community acquired pneumonia: (6) COPD exacerbation: Plan Acute hypoxic respiratory failure ? Multifactorial ? Secondary to COPD, CHF, Communicare pneumonia, A-fib with RVR ? Currently on 5 L, wheezing, tachypnea A-fib with RVR ? Cardioverted -Is currently in normal sinus rhythm -Is currently on amiodarone drip, stop drip, switch to amiodarone 400 twice daily ? Start therapeutic Lovenox -Check magnesium level, TSH Acute systolic and diastolic CHF exacerbation with history of nonischemic cardiomyopathy ? Lasix 40 mg IV once ? Monitor potassium, creatinine, magnesium ? Cardiac echo COPD exacerbation ? DuoNeb ? Budesonide ? Solu-Medrol 125 followed by 40 mg IV every 8 hours Community-acquired pneumonia ? Start Rocephin ? Start azithromycin # COVID/flu/RSV testing # Blood cultures ? History of immunocompromise with rheumatoid arthritis, on Enbrel Reported defibrillator shock, pacemaker interrogation Full code Lovenox for DVT prophylaxis Attestations 2 Medical Necessity Statement*: Patient requires hospitalization, inpatient, greater than 2 midnights, for acute hypoxic respiratory failure, COPD, CHF, pneumonia, A-fib with RVR, Diagnoses Acute hypoxic respiratory failure J96.01 Systolic CHF, acute on chronic I50.23 Nonischemic cardiomyopathy I42.8 Atrial fibrillation with controlled ventricular response I48.91 Community acquired pneumonia J18.9 COPD exacerbation J44.1
[2023-12-28] MEDS: pantoprazole 40 mg SDV IVP (18:29)
[2023-12-28] MEDS: cefTRIAXone 1,000 mg SDV 1000 MG IVP (18:30)
[2023-12-28] MEDS: FUROsemide 10 mg/mL SDV 4mL 40 MG IVP (18:32)
[2023-12-28] MEDS: methylPREDNISolone sod succ 125 mg/2 mL INJ IVP (18:35)
--- NOTE | 2023-12-28 18:48 | ECG_ITS ---
[facility] Date: 2023-12-28 Pat Name: Shana Roy Department: Room: [facility] Gender: Female [place] Department Supervisor: : 1960 Requested By: Guicho Pitt Order Number: [id number] Reading MD: Dangelo Florez M.D. Measurements Intervals [place] Rate: 75 P: 12 VT: 155 QRS: 74 QRSD: 115 T: 115 QT: 403 QTc: 452 Interpretive Statements SINUS RHYTHM LOW QRS VOLTAGE IN PRECORDIAL LEADS [QRS DEFLECTION < 1.0 mV IN CHEST LEADS] MODERATE INTRAVENTRICULAR CONDUCTION DELAY [110+ ms QRS DURATION] NONSPECIFIC ST & T-WAVE ABNORMALITY Compared to ECG 12/28/2023 17:37:28 Low QRS voltage now present T-wave abnormality now present ST (T wave) deviation no longer present Electronically Signed On 12-29-2023 00:49:50 CDT by Dangelo Florez M.D. [email or web address]
[2023-12-28 19:38] LABS: NT Pro B Type Natriuretic Pept 7308 pg/mL (0-125)
[2023-12-28 20:08] LABS: Bilirubin Urine Negative (Negative); Blood Urine Negative (Negative); Glucose Urine UA 1+ (Normal); Ketones Urine Negative (Negative); Leukocyte Esterase Urine Trace (Negative); Nitrate Urine Negative (Negative); Protein Urine Negative (Negative); Specific Gravity, Urine 1.007 (1.005-1.030); Urine Appearance Clear (CLEAR); Urine Color Yellow (Yellow); Urobilinogen Urine 0.2 mg/dL (Negative)
[2023-12-28] MEDS: budesonide 0.5 mg/2 mL Neb INHALATION (20:20)
[2023-12-28] MEDS: ipratropium-albuterol 3 mL Neb INHALATION ×2 (20:20→23:43)
[2023-12-28] MEDS: enoxaparin 120 mg/0.8 mL Syringe 110 MG SUBCUT (20:24)
[2023-12-28] MEDS: amiodarone 200 mg Tablet 400 MG PO (20:24)
[2023-12-28 20:42] LABS: Add Urine Microscopic? YES; Bacteria Urine TRACE /hpf; RBC Urine 0-4 /hpf (0-2); WBC Urine 0-4 /hpf (0-5)
[2023-12-28 20:44] LABS: Covid PCR NEGATIVE (Negative); Influenza A NEGATIVE (Negative); Influenza B NEGATIVE (Negative); Respiratory Syncytial Virus Ce NEGATIVE (Negative)
[2023-12-28] MEDS: AZITHROMYCIN ADD-Vantage 500 MG in 0.9% NaCl ADD-Vantage 250 ML 250 MG IV (21:53)
[2023-12-28 22:06] LABS: Lactic Sepsis W/Reflex 2.3 mmol/L (0.5-2.2)
[2023-12-28 22:08] LABS: Troponin 5 2HR 13.34 ng/L (0-10)
[2023-12-28 22:09] LABS: Troponin 5 2HR Delta -2.66 ABS# (0-10)
[2023-12-28 22:17] LABS: C Reactive Protein 20.6 mg/L (0.0-4.9); Chol HDL Ratio 2.46 mg/dL (0.0-4.40); Cholesterol 145 mg/dL (0-200); HDL Cholesterol 59 mg/dL (60-100); LDL Cholesterol Calculated 65 mg/dL (50-129); Thyroid Stimulating Hormone 0.91 uIU/mL (0.27-4.20); Triglycerides 105 mg/dL (0-150)
[2023-12-28 22:31] LABS: Estmated Average Glucose 111; Hemoglobin A1C 5.5 % (4.0-6.0)
[2023-12-28 22:52] LABS: Procalcitonin 0.06 ng/mL (0-0.5)
[2023-12-28] MEDS: acetaminophen 325 mg Tablet 650 MG PO (22:52)
--- NOTE | 2023-12-28 22:54 | ECG_ITS ---
[facility]28 Pat Name: Shana Roy Department: Room: [facility] Gender: Female Emergency Department Physician: : 1960 Requested By: Guicho Pitt Order Number: [id number] Patty MD: Dangelo Florez M.D. Measurements Intervals [place] Rate: 80 P: 19 SC: 160 QRS: 71 QRSD: 125 T: 117 QT: 420 QTc: 486 Interpretive Statements SINUS RHYTHM POSSIBLE LEFT ATRIAL ENLARGEMENT [-0.1mV P-WAVE IN V1/V2] MODERATE INTRAVENTRICULAR CONDUCTION DELAY [110+ ms QRS DURATION] MINIMAL ST DEPRESSION [0.025+ mV ST DEPRESSION] Compared to ECG 12/28/2023 18:48:28 ST (T wave) deviation now present T-wave abnormality no longer present Electronically Signed On 12-29-2023 00:50:02 CDT by Dangelo Florez M.D. [id number]
[2023-12-28 23:34] LABS: Reflex Lactate Order REFLEX LACTIC ORDERD
[2023-12-29] VITALS (30 sets, daily range): BP systolic 103–134; BP diastolic 61–92; PULSE 70–97; RESP 16–28; TEMP 36.5; O2SAT 91–98; BMI 39.3
[2023-12-29] LABS: Troponin 5 6HR 11.25 ng/L (0-10); Troponin 5 6HR Delta -4.75 ng/L (0-12)
[2023-12-29 02:21] LABS: Basophils % 0.1 %; Hematocrit 40.8 % (36-47); Lymphocytes # 0.6 10^3/uL (0.8-4.8); Lymphocytes % 7.7 %; Mean Corpuscular HGB Conc 31.1 g/dL (30-55); Mean Corpuscular Hemoglobin 31.8 pg (27-33); Mean Platelet Volume 10.4 fL (7.4-10.4); Monocytes # 0.1 10^3/uL (0.2-0.9); Monocytes % 1.1 %; Neutrophils # 6.72 10^3/uL (1.8-7.7); Neutrophils % 90.8 %; Nucleated Red Blood Cells % 0 %; Platelet Count 112 10^3/cmm (157-399); Red Cell Distribution Width 13.3 % (12.1-15.1)
[2023-12-29 02:43] LABS: Lactic Acid level (Lactate) 1.8 mmol/L (0.5-2.2)
[2023-12-29 02:44] LABS: Alanine Aminotransferase 51 U/L (0-33); Albumin Level 3.5 g/dL (3.5-5.2); Alkaline Phosphatase 183 U/L (35-105); Anion Gap 14.6 (5-19); Aspartate Amino Transferase 31 U/L (0-32); Blood Urea Nitrogen 24 mg/dL (8-23); Carbon Dioxide 28 mmol/L (22-29); Chloride 103 mmol/L (98-107); Creatinine Clr Calc Pharmacy 59.0915; Glomerular Filtration Rate 45.1 mL/min (90-130); Glucose 182 mg/dL (65-115); Magnesium 1.9 mg/dL (1.7-2.3); Osmolality Calculated 301 mOsm/kg (285-295); Phosphorus 3.5 mg/dL (2.5-4.5); Potassium 4.6 mmol/L (3.5-5.1); Sodium 141 mmol/L (136-145); Total Bilirubin 0.2 mg/dL (0.15-1.2); Total Protein 6.5 g/dL (6.6-8.7)
[2023-12-29 02:56] LABS: NT Pro B Type Natriuretic Pept 4602 pg/mL (0-125)
[2023-12-29] MEDS: ipratropium-albuterol 3 mL Neb INHALATION ×5 (03:07→19:29)
[2023-12-29] MEDS: methylPREDNISolone sod succ 40 mg/mL INJ IVP ×3 (05:43→21:28)
[2023-12-29] MEDS: enoxaparin 120 mg/0.8 mL Syringe 110 MG SUBCUT (05:43)
[2023-12-29] MEDS: amiodarone 200 mg Tablet 400 MG PO ×2 (07:51→20:20)
[2023-12-29] MEDS: budesonide 0.5 mg/2 mL Neb INHALATION ×2 (07:53→19:29)
[2023-12-29] MEDS: montelukast sodium 10 mg Tablet PO (08:18)
[2023-12-29] MEDS: carBAMazepine 200 mg Tablet PO ×2 (08:18→17:35)
--- NOTE | 2023-12-29 08:19 | PC.PHAR ---
Pt as several medications on her current list, which she no longer takes. Medications removed from chart are the following: Carbamazepine 200mg bid, Eliquis 5 mg bid, Enbrell 50mg/ml 50mg q7d, [place] 5-325 q8hprn, Hydroxychloroquine 200mg bid, Montelukast 10 mg daily, Zofran 4mg q8hprn, and Entresto 97-103 bid.
[2023-12-29] MEDS: potassium chloride ER 20 mEq Tablet PO (09:13)
[2023-12-29] MEDS: FUROsemide 10 mg/mL SDV 4mL 40 MG IVP ×2 (09:13→17:11)
--- NOTE | 2023-12-29 16:20 | P.PN_ITS ---
Subjective 2 Subjective: Patient was seen this morning, she tells me that she feels better and is on 2 L, her shortness of breath has improved, but persist to some degree, her edema has improved, does have a cough, no fevers, no chills Vitals/I&O/Wt Last Vital Signs Temp 97.7 F 12/29/23 04:00 Pulse 86 12/29/23 16:04 Resp 22 H 12/29/23 16:00 BP 130/72 12/29/23 16:00 Pulse Ox 96 12/29/23 16:00 O2 Del Method Nasal Cannula 12/29/23 16:00 O2 Flow Rate 2 12/29/23 16:00 12/29/23 12/29/23 12/29/23 06:59 14:59 22:59 Intake Total 585 / 1288.876 480 / 480 Output Total 600 / 1950 Balance -15 / -661.124 480 / 480 Weight last 48 hrs Weight 110.535 kg Weight 111.266 kg Weight 108.862 kg Physical Exam 2 Const: COMMON NORMALS: no acute distress and patient oriented x3 Resp: COMMON NORMALS: normal respiratory effort, No retractions and No use of accessory muscles AUSCULTATION: crackles Cardio: COMMON NORMALS: regular rate, regular rhythm, S1 normal heart sound present and S2 normal heart sound present RATE: regular rate RHYTHM: r egular rhythm HEART SOUNDS: S1 normal heart sound present and S2 normal heart sound present GI: COMMON NORMALS: Normal to inspection, nondistended, normoactive bowel sounds present Extremity: NARRATIVE EXTREMITY EXAM: 1+ edema Neuro: COMMON NORMALS: patient oriented x3 Psych: COMMON NORMALS: mental status grossly normal Data 12/29/23 02:14 12/29/23 02:14 Micro: Microbiology 12/28/23 20:20 Blood Culture - Preliminary Blood SPECIMEN COLLECTED 12/28/23 21:34 Blood Culture - Preliminary Blood SPECIMEN COLLECTED A&P Assessment and plan (1) Acute hypoxic respiratory failure: (2) Systolic CHF, acute on chronic: (3) Nonischemic cardiomyopathy: (4) Atrial fibrillation with controlled ventricular response: (5) Community acquired pneumonia: (6) COPD exacerbation: Plan Acute hypoxic respiratory failure ? Multifactorial ? Secondary to COPD, CHF, Communicare pneumonia, A-fib with RVR ? Currently on 2 L, crackles on examination A-fib with RVR ? Cardioverted -Is currently in normal sinus rhythm - amiodarone 400 twice daily ? Switch to Eliquis for tonight Acute systolic and diastolic CHF exacerbation with history of nonischemic cardiomyopathy ? Lasix 40 mg IV twice daily today ? Monitor potassium, creatinine, magnesium ? Cardiac echo COPD exacerbation ? DuoNeb ? Budesonide ? Solu-Medrol 125 followed by 40 mg IV every 8 hours Community-acquired pneumonia ? Start Rocephin ? Start azithromycin # COVID/flu/RSV testing within normal limits # Blood cultures ? History of immunocompromise with rheumatoid arthritis, on Enbrel Reported defibrillator shock, pacemaker interrogation Full code Lovenox for DVT prophylaxis Attestations 2 Medical Necessity Statement*: Patient requires hospitalization for acute respiratory failure secondary to COPD, CHF, atrial fibrillation, pneumonia Diagnoses Acute hypoxic respiratory failure J96.01 Systolic CHF, acute on chronic I50.23 Nonischemic cardiomyopathy I42.8 Atrial fibrillation with controlled ventricular response I48.91 Community acquired pneumonia J18.9 COPD exacerbation J44.1
[2023-12-29] MEDS: pantoprazole 40 mg SDV IVP (17:11)
[2023-12-29] MEDS: cefTRIAXone 1,000 mg SDV 1000 MG IVP (17:11)
[2023-12-29] MEDS: AZITHROMYCIN ADD-Vantage 500 MG in 0.9% NaCl ADD-Vantage 250 ML 250 MG IV (17:12)
--- NOTE | 2023-12-29 17:57 | PC.NURSE ---
Patient transferred to CSU from ICU at 1645 via a chair.
[2023-12-29] MEDS: apixaban 5 mg Tablet PO (20:20)
[2023-12-29] MEDS: ondansetron 2 mg/ML SDV 2 mL 4 MG IVP (21:28)
[2023-12-30] VITALS (12 sets, daily range): BP systolic 123–132; BP diastolic 72–81; PULSE 80–100; RESP 16–26; TEMP 36.7–36.8; O2SAT 89–96
[2023-12-30] MEDS: ipratropium-albuterol 3 mL Neb INHALATION ×2 (00:30→11:18)
[2023-12-30] MEDS: methylPREDNISolone sod succ 40 mg/mL INJ IVP (05:30)
[2023-12-30] MEDS: montelukast sodium 10 mg Tablet PO (09:08)
[2023-12-30] MEDS: amiodarone 200 mg Tablet 400 MG PO (09:08)
[2023-12-30] MEDS: apixaban 5 mg Tablet PO (09:08)
[2023-12-30] MEDS: carBAMazepine 200 mg Tablet PO (09:08)
[2023-12-30 11:00] LABS: Basophils % 0.1 %; Hematocrit 41.1 % (36-47); Lymphocytes # 0.8 10^3/uL (0.8-4.8); Lymphocytes % 6.5 %; Mean Corpuscular HGB Conc 30.9 g/dL (30-55); Mean Corpuscular Hemoglobin 31.3 pg (27-33); Mean Corpuscular Volume 101.2 fl (85-98); Mean Platelet Volume 10.5 fL (7.4-10.4); Monocytes # 0.5 10^3/uL (0.2-0.9); Monocytes % 3.9 %; Neutrophils # 10.37 10^3/uL (1.8-7.7); Nucleated Red Blood Cells % 0 %; Platelet Count 143 10^3/cmm (157-399); Red Blood Count 4.06 10^6/uL (3.85-5.65); Red Cell Distribution Width 13.4 % (12.1-15.1); White Blood Count 11.65 10^3/uL (3.29-11.43)
[2023-12-30 11:24] LABS: Alanine Aminotransferase 38 U/L (0-33); Albumin Level 3.3 g/dL (3.5-5.2); Alkaline Phosphatase 169 U/L (35-105); Blood Urea Nitrogen 24 mg/dL (8-23); Calcium 8.3 mg/dL (8.5-10.5); Carbon Dioxide 31 mmol/L (22-29); Chloride 102 mmol/L (98-107); Creatinine Clr Calc Pharmacy 79.9846; Globulin 3.3 g/dL (1.3-4.6); Glomerular Filtration Rate 62.8 mL/min (90-130); Glucose 173 mg/dL (65-115); Magnesium 2.2 mg/dL (1.7-2.3); NT Pro B Type Natriuretic Pept 798 pg/mL (0-125); Osmolality Calculated 298 mOsm/kg (285-295); Phosphorus 2.4 mg/dL (2.5-4.5); Sodium 140 mmol/L (136-145); Total Bilirubin 0.3 mg/dL (0.15-1.2); Total Protein 6.6 g/dL (6.6-8.7)
[2023-12-30 11:29] LABS: Anion Gap 11.5 (5-19); Aspartate Amino Transferase 19 U/L (0-32); Potassium 4.5 mmol/L (3.5-5.1)
--- NOTE | 2023-12-30 12:24 | P.DS_ITS ---
Discharge Providers Date of Admission: 12/28/23 18:08 Date of Discharge: December 30, 2023 Attending Provider at Admission: Felipe Martin MD Attending Provider at Discharge: Felipe Martin MD Primary Care Provider: Joni Duque MD Diagnoses at Discharge Discharge Diagnosis (1) Acute hypoxic respiratory failure: Status: Acute (2) Systolic CHF, acute on chronic: Status: Acute (3) Nonischemic cardiomyopathy: Status: Acute Permanent problem details: Ejection fraction 20% (4) Atrial fibrillation with controlled ventricular response: Status: Acute (5) Community acquired pneumonia: Status: Acute (6) COPD exacerbation: Status: Acute Reason for Visit Reason for Visit: Afib? sent from [facility] Hospital Course Hospital Course francine Roy is a 63 year old female with a past medical history of nonischemic cardiomyopathy, diastolic dysfunction, systolic CHF, atrial fibrillation, COPD, current smoker, history of rheumatoid arthritis, who presents [facility] enter due to shortness of breath, lower extremity edema, chest palpitations, feeling as if her defibrillator has gone off for the last week. Currently patient is alert oriented x 3, following all commands, she has been cardioverted by the ER provider, she is in normal sinus rhythm, currently on amiodarone drip, currently on 5 L, she is alert oriented x 3, following all commands, blood pressure 112/62, pulse is 86, respiratory rate 15. Patient tells me that for the last week, she has been feeling increasingly short of breath, increasing short of breath with exertion with lower extreme edema, she was seen by her primary care provider diagnosed with pneumonia, she has had a productive cough, increased sputum production, with shortness of breath, with wheezing, she does report smoking, denies lightheadedness, no dizziness. She does report chest palpitations, she reports compliance with her medications but her daughter at bedside tells me that she is not compliant at times. She tells me that she has not taken her Eliquis in over a year, as she ran out of refills. She does report increased urinary frequency, no flank pain,. No headache, blurry vision, no focal weakness no focal paresthesias. She does report anterior chest discomfort, she feels as if her defibrillator has gone off a couple times during the week, does report chest palpitations. In the emergency room she was found to have A-fib with RVR with hypotension, was started on amiodarone drip but due to persistent hypotension she was in A-fib with RVR, she was cardioverted by ER provider. Patient was admitted to [facility] for acute hypoxic respiratory failure, multifactorial, from COPD, CHF, community-acquired pneumonia, A-fib with RVR # Overall patient clinically improved, with broad-spectrum antibiotic therapy, steroid therapy, diuretic therapy, ? COPD, will discharge patient on a prednisone burst ? Lasix 40 mg daily with potassium replacement therapy ? Community-acquired pneumonia, take doxycycline ? If with RVR, patient cardioverted to normal sinus rhythm, discharged on a tapering dose of amiodarone ? In terms of anticoagulant therapy, discussed risk and benefits of anticoagulant therapy, shared decision making, she voiced understanding, all consents recommended to proceed with Eliquis therapy ? Follow-up with cardiology in 1 week Physical Exam Const: COMMON NORMALS: no acute distress and patient oriented x3 Resp: COMMON NORMALS: normal respiratory effort, No retractions, No use of accessory muscles and clear to auscultation bilaterally AUSCULTATION: clear to auscultation bilaterally Cardio: COMMON NORMALS: regular rate, regular rhythm, S1 normal heart sound present and S2 normal heart sound present RATE: regular rate RHYTHM: regular rhythm HEART SOUNDS: S1 normal heart sound present and S2 normal heart sound present GI: COMMON NORMALS: Normal to inspection, nondistended, normoactive bowel sounds present and non-tender Extremity: COMMON NORMALS: no pedal edema Neuro: COMMON NORMALS: patient oriented x3 Psych: COMMON NORMALS: mental status grossly normal Discharge Data Studies Completed and Pending Completed Studies During Hospitalization Category Date Time Status XR chest 1V portable [id number] Stat Exams 12/28/23 16:54 Completed Pending at discharge Category Date Time Status Blood Culture Stat Lab 12/28/23 20:20 Results Complete Blood Count w/Auto AM LABS Lab 12/31/23 04:00 Ordered Comprehensive Metabolic Panel AM LABS Lab 12/31/23 04:00 Ordered Magnesium AM LABS Lab 12/31/23 04:00 Ordered NT Pro B Type Natriuretic Pept AM LABS Lab 12/31/23 04:00 Ordered Phosphorus AM LABS Lab 12/31/23 04:00 Ordered Sputum Culture and Gram Stain Stat Lab 12/28/23 18:32 Uncollected CV. echo complete* [id number] Routine Ultrasound 12/28/23 18:13 Taken Radiology Impressions Chest X-Ray 12/28/23 16:54 IMPRESSION: No acute findings. Laboratory Results WBC 11.65 10^3/uL (3.29-11.43) H 12/30/23 10:41 Corrected WBC Cancelled 12/30/23 03:55 RBC 4.06 10^6/uL (3.85-5.65) 12/30/23 10:41 Hgb 12.70 g/dL (11.27-16.99) 12/30/23 10:41 Hct 41.1 % (36-47) 12/30/23 10:41 MCV 101.2 fl (85-98) H 12/30/23 10:41 MCH 31.3 pg (27-33) 12/30/23 10:41 MCHC 30.9 g/dL (30-55) 12/30/23 10:41 RDW 13.4 % (12.1-15.1) 12/30/23 10:41 Plt Count 143 10^3/cmm (157-399) L 12/30/23 10:41 MPV 10.5 fL (7.4-10.4) H 12/30/23 10:41 Gran % Cancelled 12/30/23 03:55 Neut % (Auto) 89.0 % 12/30/23 10:41 Lymph % (Auto) 6.5 % 12/30/23 10:41 Graham % (Auto) 3.9 % 12/30/23 10:41 Eos % (Auto) 0.0 % 12/30/23 10:41 Baso % (Auto) 0.1 % 12/30/23 10:41 Neut # (Auto) 10.37 10^3/uL (1.8-7.7) H 12/30/23 10:41 Lymph # (Auto) 0.8 10^3/uL (0.8-4.8) 12/30/23 10:41 Graham # (Auto) 0.5 10^3/uL (0.2-0.9) 12/30/23 10:41 Eos # (Auto) 0.0 10^3/uL (0.0-0.8) 12/30/23 10:41 Baso # (Auto) 0.0 10^3/uL (0.0-0.1) 12/30/23 10:41 Absolute Gran (auto) Cancelled 12/30/23 03:55 Nucleated RBC % (auto) 0 % 12/30/23 10:41 Nucleated RBCs # 0.0 /100WBC 12/30/23 10:41 PT 13.00 SECONDS (12.1-14.9) 12/28/23 17:10 INR 0.95 (0.8-1.2) 12/28/23 17:10 Sodium 140 mmol/L (136-145) 12/30/23 10:41 Potassium 4.5 mmol/L (3.5-5.1) 12/30/23 10:41 Chloride 102 mmol/L (98-107) 12/30/23 10:41 Carbon Dioxide 31 mmol/L (22-29) H 12/30/23 10:41 Anion Gap 11.5 (5-19) 12/30/23 10:41 BUN 24 mg/dL (8-23) H 12/30/23 10:41 Creatinine 0.9 mg/dL (0.5-0.9) 12/30/23 10:41 GFR Calculation 62.8 mL/min (90-130) L 12/30/23 10:41 Glucose 173 mg/dL (65-115) H 12/30/23 10:41 Estimat Average Glucose 111 12/28/23 21:34 Hemoglobin A1c 5.5 % (4.0-6.0) 12/28/23 21:34 Calculated Osmolality 298 mOsm/kg (285-295) H 12/30/23 10:41 Lactic Acid 2.3 mmol/L (0.5-2.2) H 12/28/23 21:34 Lactic Acid (Sepsis) 1.8 mmol/L (0.5-2.2) 12/29/23 02:14 Calcium 8.3 mg/dL (8.5-10.5) L 12/30/23 10:41 Phosphorus 2.4 mg/dL (2.5-4.5) L 12/30/23 10:41 Magnesium 2.2 mg/dL (1.7-2.3) 12/30/23 10:41 Total Bilirubin 0.3 mg/dL (0.15-1.2) 12/30/23 10:41 AST 19 U/L (0-32) 12/30/23 10:41 ALT 38 U/L (0-33) H 12/30/23 10:41 Alkaline Phosphatase 169 U/L (35-105) H 12/30/23 10:41 Troponin T Baseline 16 ng/L (0-10) H 12/28/23 17:10 Troponin T 120 Minute 13.34 ng/L (0-10) H 12/28/23 21:34 Delta Troponin T -2.66 ABS# (0-10) L 12/28/23 21:34 Troponin T Hi Sens 6Hr 11.25 ng/L (0-10) H 12/28/23 23:21 Troponin T Hi Sens 6Hr Delta -4.75 ng/L (0-12) L 12/28/23 23:21 C-Reactive Protein 20.6 mg/L (0.0-4.9) H 12/28/23 21:34 NT-Pro-B Natriuret Pep 798 pg/mL (0-125) H 12/30/23 10:41 Total Protein 6.6 g/dL (6.6-8.7) 12/30/23 10:41 Albumin 3.3 g/dL (3.5-5.2) L 12/30/23 10:41 Globulin 3.3 g/dL (1.3-4.6) 12/30/23 10:41 Triglycerides 105 mg/dL (0-150) 12/28/23 21:34 Cholesterol 145 mg/dL (0-200) 12/28/23 21:34 LDL Cholesterol, Calc 65 mg/dL (50-129) 12/28/23 21:34 HDL Cholesterol 59 mg/dL (60-100) L 12/28/23 21:34 LDL/HDL Ratio 1.10 RATIO (0.00-3.22) 12/28/23 21: Cholesterol/HDL Ratio 2.46 mg/dL (0.0-4.40) 12/28/23 21:34 Procalcitonin 0.06 ng/mL (0-0.5) 12/28/23 21:34 TSH 0.91 uIU/mL (0.27-4.20) 12/28/23 21:34 Urine Color Yellow (Yellow) 12/28/23 19:55 Urine Appearance Clear (CLEAR) 12/28/23 19:55 Urine pH 5.0 (5-7) 12/28/23 19:55 Ur Specific [place] 1.007 (1.005-1.030) 12/28/23 19:55 Urine Protein Negative (Negative) 12/28/23 19:55 Urine Glucose (UA) 1+ (Normal) H 12/28/23 19:55 Urine Ketones Negative (Negative) 12/28/23 19:55 Urine Blood Negative (Negative) 12/28/23 19:55 Urine Nitrate Negative (Negative) 12/28/23 19:55 Urine Bilirubin Negative (Negative) 12/28/23 19:55 Urine Urobilinogen 0.2 mg/dL (Negative) 12/28/23 19:55 Ur Leukocyte Esterase Trace (Negative) A 12/28/23 19:55 Urine RBC 0-4 /hpf (0-2) H 12/28/23 19:55 Urine WBC 0-4 /hpf (0-5) H 12/28/23 19:55 Ur Squamous Epith Cells 5-10 /hpf (0-5) H 12/28/23 19:55 Amorphous Sediment Not Reportable 12/28/23 19:55 Urine Bacteria Trace /hpf (NONE) 12/28/23 19:55 Urine Yeast 1+ /hpf H 12/28/23 19:55 Carbamazepine 2.0 ug/mL (4.0-12.0) L 12/28/23 21:34 Coronavirus (PCR) Negative (Negative) 12/28/23 19:10 Influenza A (PCR) Negative (Negative) 12/28/23 19:10 Influenza Type B (PCR) Negative (Negative) 12/28/23 19:10 RSV (PCR) Negative (Negative) 12/28/23 19:10 Vitals Last Vital Signs Temp 98.3 F 12/30/23 11:35 Pulse 84 12/30/23 11:35 Resp 21 H 12/30/23 11:35 BP 123/81 12/30/23 11:35 Pulse Ox 96 12/30/23 11:35 O2 Del Method Room Air 12/30/23 11:35 O2 Flow Rate 2 12/29/23 16:00 Discharge Plan Discharge Patient Disposition: Home Condition: Stable Prescriptions: New Eliquis 5 mg Tablet 5 mg PO BID@0900,2100 30 Days Qty: 60 0RF amiodarone [Pacerone] 200 mg Tablet 400 mg PO Q12H Qty: 60 0RF Rx Instructions: 2 tabs(400mg) twice daily for 5 days, 1 tab twice daily for 5 days, then 1 tab daily metoprolol succinate [Toprol XL] 25 mg tablet extended release 24 hr 25 mg PO DAILY 30 Days Qty: 30 0RF doxycycline hyclate 100 mg tablet 100 mg PO BID 5 Days Qty: 10 0RF prednisone 20 mg tablet 20 mg PO BID 5 Days Qty: 10 0RF potassium chloride [Klor-Con M20] 20 mEq tablet,ER particles/crystals 20 meq PO DAILY 30 Days Qty: 30 0RF carbamazepine 200 mg Tablet 200 mg PO BID Qty: 0 0RF montelukast 10 mg Tablet 10 mg PO DAILY 30 Days Qty: 0 0RF Continued fluticasone propionate [Flonase Allergy Relief] 50 mcg/actuation spray,suspension 1 spray intranasal BID Qty: 18 3RF Rx Instructions: administer into each nostril albuterol sulfate 90 mcg/actuation HFA aerosol inhaler 2 puff INHALATION Q6H PRN (Reason: shortness of breath) Qty: 8.5 3RF ipratropium-albuterol 0.5 mg-3 mg(2.5 mg base)/3 mL solution for nebulization 3 ml inhalation Q6H PRN (Reason: wheezing) Qty: 90 3RF Jardiance 10 mg tablet See Rx Instructions .ROUTE .COMPLEX Qty: 90 0RF Dose Instruction: Take 1 tablet by mouth once daily Rx Instructions: Take 1 tablet by mouth once daily furosemide 40 mg tablet See Rx Instructions .ROUTE .COMPLEX Qty: 90 2RF Dose Instruction: Take 1 tablet by mouth once daily Rx Instructions: Take 1 tablet by mouth once daily gabapentin 400 mg capsule 400 mg PO TID PRN (Reason: nerve pain) atorvastatin 40 mg tablet 40 mg PO BEDTIME omeprazole 40 mg capsule,delayed release(DR/EC) 40 mg PO DAILY Trelegy Ellipta 100-62.5-25 mcg blister with device 1 inh inhalation DAILY metolazone 2.5 mg tablet 2.5 mg PO DAILY PRN (Reason: weight gain) Qty: 30 0RF Rx Instructions: take for weight gain >3 pounds or shortness of breath or develop lower extremity edema Discontinued metoprolol tartrate 50 mg tablet 50 mg PO BID@0900,2100 Qty: 180 0RF amiodarone 100 mg tablet See Rx Instructions .ROUTE .COMPLEX Qty: 90 3RF Rx Instructions: 200 MG DAILY Discharge Orders: Discharge Order (Routine); Ordered 12/30/23 Ordered By: Felipe Martin Referrals: Joni Duque MD [Primary Care Provider] - 01/04/24 1:30 pm Cristel Hayes MD [Physician] - 1 week Discharge Diet: Cardiac Discharge Activity: Resume usual activity Patient Instructions: Opioid Safety Activity Restrictions/Additional Instructions: - Please stop smoking ? Please take amiodarone as prescribed 400 mg twice daily for 5 days then followed by 200 mg twice daily for 5 days, then 200 mg daily thereafter ? Please take Eliquis 5 mg twice daily, Eliquis is a very strong blood thinner, if you develop bloody or black stool to have a significant fall please go to the emergency room ? For your metoprolol at discharge of 25 mg daily, monitor for lightheadedness or dizziness if so go to emergency room ? Discharging on Lasix 40 mg daily ? Please use metolazone as needed for weight gain more than 3 pounds or shortness of breath or lower extreme edema Discharge Attestations Time Spent in Discharge Care*: greater than 30 min Status at Discharge: Cognitive status at discharge: cognitively intact , Behavioral status at discharge: cooperative , Quality Metrics Clinical Quality Measures [ No reported AMI, CVA or VTE this stay] Coding Level of Care Code 34496 Total time (in minutes) for Discharge: 45 Diagnoses Acute hypoxic respiratory failure J96.01 Systolic CHF, acute on chronic I50.23 Nonischemic cardiomyopathy I42.8 Atrial fibrillation with controlled ventricular response I48.91 Community acquired pneumonia J18.9 COPD exacerbation J44.1
[2023-12-30] MEDS: acetaminophen 325 mg Tablet 650 MG PO (12:47)
[2023-12-30] MEDS: potassium chloride ER 20 mEq Tablet PO (12:48)
[2023-12-30] MEDS: FUROsemide 10 mg/mL SDV 4mL 40 MG IVP (12:48)
== END 2023-12-30 13:27 | disposition home or self-care (01) | DRG 193 ==
LOC: ER 17:12 → ICU 18:08 → CSU 12-29 16:44
PROVIDERS: Admitting Provider Family Medicine; Emergency Provider Emergency Medicine; PCP Family Medicine; Visit Provider Family Medicine
DX: J18.9 Pneumonia, unspecified organism (principal); I50.43 Acute on chronic combined systolic (congestive) and diastolic (congestive) heart failure; J96.01 Acute respiratory failure with hypoxia; J44.1 Chronic obstructive pulmonary disease with (acute) exacerbation; J44.0 Chronic obstructive pulmonary disease with (acute) lower respiratory infection; D84.821 Immunodeficiency due to drugs; I42.8 Other cardiomyopathies; I48.91 Unspecified atrial fibrillation; I11.0 Hypertensive heart disease with heart failure; J43.9 Emphysema, unspecified; F17.210 Nicotine dependence, cigarettes, uncomplicated; M06.9 Rheumatoid arthritis, unspecified; T45.516A Underdosing of anticoagulants, initial encounter; I95.9 Hypotension, unspecified; M79.7 Fibromyalgia; K21.9 Gastro-esophageal reflux disease without esophagitis; Z95.810 Presence of automatic (implantable) cardiac defibrillator; Z91.128 Patient's intentional underdosing of medication regimen for other reason; Z79.69 Long term (current) use of other immunomodulators and immunosuppressants; Z79.51 Long term (current) use of inhaled steroids
CPT/HCPCS: 0241U; 36415; 71045; 80053; 80061; 80156; 81001; 83036; 83605; 83735; 83880; 84100; 84145; 84443; 84484; 85025; 85610; 86140; 87040; 93005; 93306; 94640; 96365; 96367; 96372; 96374; 96375; 96376; 97110; 97116; 97161; 97166; 97535; 99285; J0283; J0696; J1650; J1940; J2405; J2470; J2919; J3490; J7626

== ENCOUNTER 2024-01-28 18:51 | Emergency (ER) | payer MEDICARE, MEDICAID, SELFPAY ==
[2024-01-28 18:57] VITALS: BP 131/77; PULSE 76; TEMP 36.8; O2SAT 92; BMI 40.3
--- NOTE | 2024-01-28 20:59 | XRR_ITS ---
PROCEDURE INFORMATION: Exam: XR Right Shoulder Exam date and time: 01/28/2024 9:03 PM Age: 64 years old Clinical indication: Pain; Upper arm; Right; Additional info: Trauma TECHNIQUE: Imaging protocol: Radiologic exam of the right shoulder. Views: 2 or more views. COMPARISON: CR (CHEST, ) 12/28/2023 5:16 PM FINDINGS: Bones/joints: Impacted angulated right humeral neck fracture. Probable no shoulder dislocation, however CT may be helpful for complete evaluation. Soft tissues: Normal. XR/XR shoulder RT min 2V* [id number] IMPRESSION: 1. Impacted angulated right humeral neck fracture. 2. Probable no shoulder dislocation, however CT may be helpful for complete evaluation.
--- NOTE | 2024-01-28 20:59 | XRR_ITS ---
PROCEDURE INFORMATION: Exam: XR Right Humerus Exam date and time: 01/28/2024 9:35 PM Age: 64 years old Clinical indication: Pain; Upper arm; Right; Additional info: Fall TECHNIQUE: Imaging protocol: Radiologic exam of the right humerus. Views: 2 or more views. COMPARISON: CR (CHEST, ) 01/28/2024 9:03 PM FINDINGS: Bones/joints: Continued impacted angulated right humeral neck fracture. Probable no shoulder dislocation, however CT right shoulder may be helpful for complete evaluation. Soft tissues: Normal. XR/[place] [id number] IMPRESSION: 1. Continued impacted angulated right humeral neck fracture. 2. Probable no shoulder dislocation, however CT right shoulder may be helpful for complete evaluation.
--- NOTE | 2024-01-28 20:59 | CTR_ITS ---
PROCEDURE INFORMATION: Exam: CT Cervical Spine Without Contrast Exam date and time: 01/28/2024 9:26 PM Age: 64 years old Clinical indication: Injury or trauma; Fall; Blunt trauma; Additional info: Fall/trauma TECHNIQUE: Imaging protocol: Computed tomography of the cervical spine without contrast. Radiation optimization: All CT scans at this facility use at least one of these dose optimization techniques: automated exposure control; mA and/or kV adjustment per patient size (includes targeted exams where dose is matched to clinical indication); or iterative reconstruction. COMPARISON: CT cervical spin wo con* [id number] 10/25/2022 4:12 PM RADIATION DOSE METRICS: Total DLP (mGy-cm): 283.87 FINDINGS: Bones: Moderate to severe multilevel spine degenerative changes including degenerative disc disease, spondylosis and facet degenerative changes. Multilevel bilateral foraminal stenosis. Lungs: Moderate paraseptal emphysema. Mild centrilobular emphysema. Pleural spaces: Bilateral apical pleural and/or parenchymal scarring. Soft tissues: Unremarkable. CT/CT cervical spin wo con* [id number] IMPRESSION: 1. Moderate paraseptal emphysema. 2. No acute C-spine findings.
--- NOTE | 2024-01-28 20:59 | XRR_ITS ---
PROCEDURE INFORMATION: Exam: XR Right Elbow Exam date and time: 01/28/2024 9:39 PM Age: 64 years old Clinical indication: Pain; Upper arm; Right; Additional info: Trauma/fall TECHNIQUE: Imaging protocol: Radiologic exam of the right elbow. Views: 3 or more views. COMPARISON: CR ( EX, ) 01/28/2024 9:35 PM FINDINGS: Bones/joints: Normal. Soft tissues: Normal. XR/XR elbow RT min 3V* [id number] IMPRESSION: No acute findings.
--- NOTE | 2024-01-28 21:00 | W.ED.FALL ---
HPI - Fall General: Chief Complaint: Extremity Injury, Upper Stated Complaint: Fell Rt Side Time Seen by Provider: 01/28/24 20:18 Source: patient Mode of arrival: ambulatory Limitations: no limitations History of Present Illness: Patient is a 64-year-old female presents to ED today following a fall that occurred 3 days ago. Patient states she accidentally tripped and fell and landed onto the right shoulder. She has pain from her right shoulder down to her right elbow. She states she has not been able to move the arm since her fall. She is reporting a little bit of neck soreness that has not improved over the last 3 days. She denies striking her head or LOC. She is not having any back pain. She has been up and ambulating without difficulty or assistance to her lower extremities. Her main complaint is the right shoulder. MD complaint: fall Onset (ago): day(s) Fall from: standing Fall witnessed: no Place fall occurred: home Loss of consciousness: None Prolonged down time: no Symptoms prior to fall: none Context: tripped/slipped Location of injury - extremities: Right: shoulder Severity: severe Associated symptoms-after fall: Reports no associated symptoms and neck pain; Denies abdominal pain, chest pain, headache(s), hematuria or lightheadedness Related Data Home Medications Medication Instructions Recorded Confirmed gabapentin 400 mg capsule 400 mg PO TID PRN nerve pain 11/14/19 12/29/23 fluticasone fur. 100 mcg-umeclid 1 inh inhalation DAILY 10/25/22 12/29/23 62.5 mcg-vilant 25 mcg inhalat.powder (Trelegy Ellipta) atorvastatin 40 mg tablet 40 mg PO BEDTIME 12/29/23 12/29/23 omeprazole 40 mg capsule,delayed 40 mg PO DAILY 12/29/23 12/29/23 release Previous Rx's Medication Instructions Recorded fluticasone propionate 50 1 spray intranasal BID #18 mL 12/20/21 mcg/actuation nasal spray,suspension (Flonase Allergy Relief) albuterol sulfate 90 mcg/actuation 2 puff inhalation Q6H PRN 03/21/22 aerosol inhaler shortness of breath #8.5 grams ipratropium 0.5 mg-albuterol 3 mg 3 ml inhalation Q6H PRN wheezing 07/22/22 (2.5 mg base)/3 mL nebulization #90 mL soln empagliflozin 10 mg tablet See Rx Instructions .Route 11/13/23 (Jardiance) .COMPLEX #90 tabs furosemide 40 mg tablet See Rx Instructions .Route 12/28/23 .COMPLEX #90 tabs amiodarone 200 mg tablet (Pacerone) 400 mg (2 x 200 mg) PO Q12H #60 12/30/23 tabs apixaban 5 mg tablet (Eliquis) 5 mg PO BID@0900,2100 30 days #60 12/30/23 tabs carbamazepine 200 mg tablet 200 mg PO BID #0 tabs 12/30/23 metolazone 2.5 mg tablet 2.5 mg PO DAILY PRN weight gain 12/30/23 #30 tabs metoprolol succinate 25 mg 25 mg PO DAILY 30 days #30 tabs 12/30/23 tablet,extended release 24 hr (Toprol XL) montelukast 10 mg tablet 10 mg PO DAILY 30 days #0 tabs 12/30/23 potassium chloride 20 mEq 20 meq PO DAILY 30 days #30 tabs 12/30/23 tablet,extended release(part/cryst) (Klor-Con M) tramadol 50 mg tablet 50 mg PO Q6H PRN pain #20 tabs 01/28/24 Allergies Allergy/AdvReac Type Severity Reaction Status Date / Time dronedarone Allergy Severe rash, Verified 01/28/24 19:02 swelling doxacurium Allergy HIVES,RASH Verified 01/28/24 19:02 sulfamethoxazole Allergy ALGY-Rash Verified 01/28/24 19:02 [From Bactrim] trimethoprim [From Bactrim] Allergy ALGY-Rash Verified 01/28/24 19:02 Review of Systems Eyes: Denies: change in vision, blurry vision, photophobia, eye discharge, floaters or seeing flashes ENMT: Denies: throat pain, odynophagia, ear or mastoid pain, ear discharge, nasal discharge, epistaxis or sinus pain Card: Denies: chest pain, palpitations, lightheadedness, syncope or pre-syncope Resp: Denies: dyspnea or pain on inspiration GI: Denies: abdominal pain : Denies: flank pain or hematuria Musc: Reports: neck pain, extremity pain (R upper arm), joint pain (R shoulder, R elbow), joint swelling (R shoulder) and limited range of motion (R shoulder); Denies: back pain Neuro: Denies: headache(s), numbness in extremities, weakness in extremities, sensory changes or dizziness PFSH ED PFSH: Medical History Sinus tachycardia Emphysema/COPD Fibromyalgia CHF (congestive heart failure) Atrial flutter History of coronary angiogram COPD (chronic obstructive pulmonary disease) GERD (gastroesophageal reflux disease) Tobacco dependency Osteoarthritis Rheumatoid arthritis Atrial fibrillation Hypertension Nonischemic cardiomyopathy Ejection fraction 20% Hypotension Edema leg Surgical History AICD (automatic cardioverter/defibrillator) present S/P tonsillectomy H/O: hysterectomy Family History Father Cancer Mother Cancer Sister Cancer Other CAD (coronary artery disease) Hyperlipidemia Hypertension Lung disease Denies family history of Psychiatric illness Social History Smoking and tobacco/nicotine status: current every day tobacco/nicotine user cigarettes Packs smoked per day: 2 Years cigarettes smoked: 50 [ Other cigarette details: Started at age 10 years] Alcohol intake: never Substance/Drug Use: never Physical Exam Const: COMMON NORMALS: no acute distress, average body habitus, patient oriented x3, no limitations, alert and well nourished GENERAL APPEARANCE: cooperative NUTRITIONAL APPEARANCE: obese morbidly obese (BMI 40.4) ORIENTATION/CONSCIOUSNESS: Yes awake, Yes oriented to person, Yes oriented to place and Yes oriented to time HENMT: COMMON NORMALS: normocephalic, atraumatic and TM's normal bilaterally HEAD & SCALP: normal to inspection, normocephalic and atraumatic; no Qiu's sign, no hematoma and no raccoon eyes FACE & SINUS: normal facial exam TYMPANIC MEMBRANE: TM's normal bilaterally MOUTH: other (no intraoral injuries noted) Eye: COMMON NORMALS: Equal, round and reactive pupils present and EOMs intact bilaterally GENERAL EYE: appearance normal, both eyes and all related structures and normal light reflex PUPIL: Yes Equal, round and reactive pupils present DIRECT OPHTHALMOSCOPY: Yes normal light reflex Neck/C-Spine: COMMON NORMALS: full ROM GENERAL: Yes normal visual inspection CERVICAL SPINE: Yes cervical ROM normal, Yes pain with cervical ROM, Yes Cervical spine tenderness, No step off deformity and Yes Paracervical muscle tenderness Chest: COMMONS NORMALS: normal inspection of the chest and normal palpation of entire chest wall Resp: COMMON NORMALS: normal respiratory effort and clear to auscultation bilaterally AUSCULTATION: clear to auscultation bilaterally Cardio: COMMON NORMALS: regular rate and regular rhythm RATE: regular rate RHYTHM: regular rhythm GI: COMMON NORMALS: Normal to inspection, nondistended, normoactive bowel sounds present, Soft to palpation, non-tender, No hepatosplenomegaly present and no masses INSPECTION: Yes normal to inspection and No abdominal wall ecchymosis AUSCULTATION: Yes normoactive bowel sounds PALPATION: Yes Soft to palpation and Yes No hepatosplenomegaly present Back/Pelvis: COMMON NORMALS: thoracic and lumbar spine normal to inspection, no thoracic nor lumbar tenderness and thoraco-lumbar ROM normal Extremity: COMMON NORMALS: capillary refill normal GENERAL: Yes normal exam except as noted RIGHT UPPER EXTREMITY: Yes shoulder joint (significant edema to R shoulder; ecchymosis) Right shoulder: Yes Right shoulder joint ROM exam (significantly limited due to pain) and Yes Right shoulder joint neurovascular exam (normal) and Yes elbow joint Right elbow: Yes neurovascular exam (normal) Neuro: ROYCE COMA SCALE: document GCS findings Royce coma scale eye opening: Spontaneous [place] coma scale verbal response: Orientated [place] coma scale motor response: Obey commands [place] coma scale total score: 15 COMMON NORMALS: patient oriented x3, CN's II-XII intact bilaterally, moves all extremities, no focal motor deficits, no sensory deficits noted and gait normal SENSORIUM/ORIENTATION: Yes alert, Yes oriented to person, Yes oriented to place and Yes oriented to time SPEECH: speech normal GAIT: Yes Normal gait present Skin: COMMON NORMALS: no rashes or lesions noted NARRATIVE SKIN EXAM: ecchymosis R shoulder GENERAL SKIN EXAM: no rashes or lesions noted TRAUMA: no lacerations or abrasions Course Vital Signs: Vital signs: Vital Signs Temperature 98.2 F 01/28/24 18:57 Pulse Rate 76 01/28/24 18:57 Respiratory Rate 18 01/28/24 23:01 Blood Pressure 131/77 01/28/24 18:57 Pulse Oximetry 95 01/28/24 23:01 Oxygen Delivery Me thod Room Air 01/28/24 23:01 MDM - Fall Medical Decision Making Patient here following a trip and fall 3 days ago. XR showing a proximal humeral fracture. Remainder of x-rays are unremarkable. CT cervical spine is unremarkable. She will be placed in a sling and will follow-up with orthopedics. She is requesting tramadol to help with discomfort. Return ED precautions given. Medical Records I reviewed the patient's medical records. Lab Data Radiology Impressions Cervical Spine CT 01/28/24 20:59 IMPRESSION: 1. Moderate paraseptal emphysema. 2. No acute C-spine findings. Elbow X-Ray 01/28/24 20:59 IMPRESSION: No acute findings. Humerus X-Ray 01/28/24 20:59 IMPRESSION: 1. Continued impacted angulated right humeral neck fracture. 2. Probable no shoulder dislocation, however CT right shoulder may be helpful for complete evaluation. Shoulder X-Ray 01/28/24 20:59 IMPRESSION: 1. Impacted angulated right humeral neck fracture. 2. Probable no shoulder dislocation, however CT may be helpful for complete evaluation. XR interpretation done by ED provider, pending radiology final review Discharge Plan Discharge Patient Disposition: Home Clinical Impression: Fall on same level from tripping Closed fracture of proximal end of right humerus Qualifiers: Encounter type: initial encounter Fracture morphology: other fracture Fracture alignment: displaced Qualified Code(s): S42.291A - Other displaced fracture of upper end of right humerus, initial encounter for closed fracture Condition: Stable Prescriptions: New tramadol 50 mg tablet 50 mg PO Q6H PRN (Reason: pain) Qty: 20 0RF No Action fluticasone propionate [Flonase Allergy Relief] 50 mcg/actuation spray,suspension 1 spray intranasal BID Qty: 18 3RF Rx Instructions: administer into each nostril albuterol sulfate 90 mcg/actuation HFA aerosol inhaler 2 puff INHALATION Q6H PRN (Reason: shortness of breath) Qty: 8.5 3RF ipratropium-albuterol 0.5 mg-3 mg(2.5 mg base)/3 mL solution for nebulization 3 ml inhalation Q6H PRN (Reason: wheezing) Qty: 90 3RF Jardiance 10 mg tablet See Rx Instructions .ROUTE .COMPLEX Qty: 90 0RF Dose Instruction: Take 1 tablet by mouth once daily Rx Instructions: Take 1 tablet by mouth once daily furosemide 40 mg tablet See Rx Instructions .ROUTE .COMPLEX Qty: 90 2RF Dose Instruction: Take 1 tablet by mouth once daily Rx Instructions: Take 1 tablet by mouth once daily gabapentin 400 mg capsule 400 mg PO TID PRN (Reason: nerve pain) atorvastatin 40 mg tablet 40 mg PO BEDTIME omeprazole 40 mg capsule,delayed release(DR/EC) 40 mg PO DAILY carbamazepine 200 mg Tablet 200 mg PO BID Qty: 0 0RF montelukast 10 mg Tablet 10 mg PO DAILY 30 Days Qty: 0 0RF Eliquis 5 mg Tablet 5 mg PO BID@0900,2100 30 Days Qty: 60 0RF amiodarone [Pacerone] 200 mg Tablet 400 mg PO Q12H Qty: 60 0RF Rx Instructions: 2 tabs(400mg) twice daily for 5 days, 1 tab twice daily for 5 days, then 1 tab daily metoprolol succinate [Toprol XL] 25 mg tablet extended release 24 hr 25 mg PO DAILY 30 Days Qty: 30 0RF metolazone 2.5 mg tablet 2.5 mg PO DAILY PRN (Reason: weight gain) Qty: 30 0RF Rx Instructions: take for weight gain >3 pounds or shortness of breath or develop lower extremity edema potassium chloride [Klor-Con M20] 20 mEq tablet,ER particles/crystals 20 meq PO DAILY 30 Days Qty: 30 0RF Trelegy Ellipta 100-62.5-25 mcg blister with device 1 inh inhalation DAILY Discharge Orders: Discharge ED (Routine); Ordered 01/28/24 Ordered By: Julia Barrera Referrals: Joni Duque MD [Primary Care Provider] - Patient Instructions: Proximal Humerus Fracture (ED), Opioid Safety, Pain Management Activity Restrictions/Additional Instructions: As we discussed, you need to stay in your sling at all times apart from showering or bathing. Case management should reach out to you shortly to help set you up with your follow-up orthopedic appointment regarding the fracture of your right shoulder. As you have requested, I have sent you a prescription for tramadol to help with your discomfort. You may apply ice to the joint to help with swelling. Coding Level of Care Code ED Armature Winder for Kishan Sandhu
[2024-01-28 21:06] VITALS: RESP 18
[2024-01-28] MEDS: morphine 4 mg/mL SDV 1 mL IM ×2 (21:06→23:29)
[2024-01-28] MEDS: ondansetron 2 mg/ML SDV 2 mL 4 MG IM (21:06)
--- NOTE | 2024-01-28 21:47 | DCPLANNER ---
messaged ortho for er f/u
[2024-01-28 23:01] VITALS: RESP 18; O2SAT 95
[2024-01-28 23:29] VITALS: RESP 20; O2SAT 96
[2024-01-28] MEDS: TRAMadol 50 mg Tablet PO ×2 (23:32)
[2024-01-29 00:03] VITALS: BP 120/95; PULSE 73; RESP 21; O2SAT 97
== END 2024-01-29 | disposition home or self-care (01) ==
PROVIDERS: Emergency Provider Physician Assistant; PCP Family Medicine
DX: S42.291A Other displaced fracture of upper end of right humerus, initial encounter for closed fracture (principal); Z79.01 Long term (current) use of anticoagulants; W01.0XXA Fall on same level from slipping, tripping and stumbling without subsequent striking against object, initial encounter; F17.210 Nicotine dependence, cigarettes, uncomplicated; I11.0 Hypertensive heart disease with heart failure; I50.9 Heart failure, unspecified; J44.9 Chronic obstructive pulmonary disease, unspecified
CPT/HCPCS: 72125; 73030; 73060; 73080; 96372; 99284; J2270; J2405

== ENCOUNTER → 2024-02-04 13:01 | Outpatient (BNVA) | payer MEDICARE, MEDICAID, SELFPAY | PROVIDERS: PCP Family Medicine; Referring Provider Family Medicine; Visit Provider Nurse Practitioner | DX: S42.231A 3-part fracture of surgical neck of right humerus, initial encounter for closed fracture; S50.11XA Contusion of right forearm, initial encounter; W01.0XXA Fall on same level from slipping, tripping and stumbling without subsequent striking against object, initial encounter | CPT/HCPCS: 23600; 73030; 73090 ==

== ENCOUNTER 2024-02-04 14:38 | Outpatient (CLI) | payer MEDICARE, MEDICAID, SELFPAY | END 2024-02-04 14:39 | disposition home or self-care (01) | LOC: SPT 14:38 | PROVIDERS: PCP Family Medicine; Visit Provider Nurse Practitioner | DX: Z46.89 Encounter for fitting and adjustment of other specified devices (principal); S42.291D Other displaced fracture of upper end of right humerus, subsequent encounter for fracture with routine healing; X58.XXXD Exposure to other specified factors, subsequent encounter | CPT/HCPCS: L3670 ==

== ENCOUNTER → 2024-02-10 09:37 | Outpatient (BNVA) | payer MEDICARE, MEDICAID, SELFPAY | PROVIDERS: PCP Family Medicine; Visit Provider Internal Medicine Cardiovascular Disease | DX: Z45.02 Encounter for adjustment and management of automatic implantable cardiac defibrillator (principal) | CPT/HCPCS: 93296 ==

== ENCOUNTER 2024-02-13 19:31 | Inpatient (IN) | payer MEDICARE, MEDICAID, SELFPAY ==
[2024-02-13] VITALS (14 sets, daily range): BP systolic 76–128; BP diastolic 52–98; PULSE 95–149; RESP 15–21; TEMP 36.3–36.7; O2SAT 81–99; BMI 37.9; BMI 39.7
--- NOTE | 2024-02-13 19:37 | ECG_ITS ---
[facility] [employer] Test Date: 2024-02-13 Pat Name: Shana Roy Department: Room: Gender: Female Director Staffing: : 1960 Requested By: Luke Flores Order Number: [id number] Patty MD: Dangelo Florez M.D. Measurements Intervals [place] Rate: 149 P: 0 MA: 0 QRS: 83 QRSD: 122 T: 145 QT: 309 QTc: 487 Interpretive Statements ATRIAL FLUTTER/TACHYCARDIA WITH RAPID VENTRICULAR RESPONSE WITH ABERRANT CONDUCTION OR VENTRICULAR PREMATURE COMPLEXES MODERATE INTRAVENTRICULAR CONDUCTION DELAY [105+ ms QRS DURATION, 80+ ms Q/S IN V1/V2, NO Q AND 60+ ms R IN I/aVL/V5/V6] MODERATE T-WAVE ABNORMALITY, CONSIDER LATERAL ISCHEMIA [-0.1+ mV T-WAVE IN I/aVL/V5/V6].MODERATE T-WAVE ABNORMALITY, CONSIDER INFERIOR ISCHEMIA [-0.1+ mV T-WAVE IN II/aVF].Compared to ECG 12/28/2023 23:59:02 Ventricular premature complex(es) now present Aberrant conduction of supraventricular beat(s) now present T-wave abnormality now present.Possible ischemia now present Sinus rhythm no longer present.ST (T wave) deviation no longer present Electronically Signed On 02-14-2024 22:22:11 PHOTO COLORER by Dangelo Florez M.D. [email or web address]
--- NOTE | 2024-02-13 19:45 | XRR_ITS ---
PROCEDURE INFORMATION: Exam: XR Chest Exam date and time: 02/13/2024 8:23 PM Age: 64 years old Clinical indication: Shortness of breath; Prior surgery; Surgery date: 6+ months; Surgery type: Pacer; Patient HX: C/O SOB with afib. Known recent RT humeral fracture. ; Additional info: Afib rvr TECHNIQUE: Imaging protocol: Radiologic exam of the chest. Views: 1 view. COMPARISON: CR (CHEST, ) 12/28/2023 5:16 PM FINDINGS: Tubes, catheters and devices: Left chest wall pacemaker/AICD, stable. Lungs: Vascular congestion with bilateral interstitial thickening. No focal consolidation. Pleural spaces: Possible trace right pleural effusion. Heart/Mediastinum: Stable cardiomegaly. Bones/joints: Known right humeral head fracture. XR/XR chest 1V portable [id number] IMPRESSION: Cardiomegaly with lung findings most suggestive of pulmonary edema.
[2024-02-13] MEDS: dilTIAZem 5 mg/mL SDV 5 mL 10 MG IVP (20:27)
[2024-02-13] MEDS: dilTIAZem 100 MG in sodium chloride 0.9% (add-van) 100 ML IV (20:29)
--- NOTE | 2024-02-13 20:34 | W.ED.ARRPALP ---
HPI - Arrhythmia/Palpitations General: Chief Complaint: Arrhythmia/Palpitations Stated Complaint: afib high HR Time Seen by Provider: 02/13/24 19:45 History of Present Illness: Lashonda Roy is a 64-year-old female that presents to the emergency department with tachycardia and hypertension. She reports she has not been feeling well the last week. She reports she had a fall from standing 4 days ago and fractured her right shoulder. She arrives immobilized. Here in the emergency department she denies chest pain but has been short of breath. She has a heart rate in the 150s. Appears to be A-fib RVR. Patient has a history. She also has a history that includes heart failure, heart disease, hyperlipidemia, hypertension, diabetes, COPD and heart failure. Associated symptoms: Deny nausea or vomiting Related Data Home Medications Medication Instructions Recorded Confirmed gabapentin 400 mg capsule 400 mg PO TID PRN nerve pain 11/14/19 02/04/24 fluticasone fur. 100 mcg-umeclid 1 inh inhalation DAILY 10/25/22 02/04/24 62.5 mcg-vilant 25 mcg inhalat.powder (Trelegy Ellipta) atorvastatin 40 mg tablet 40 mg PO BEDTIME 12/29/23 02/04/24 omeprazole 40 mg capsule,delayed 40 mg PO DAILY 12/29/23 02/04/24 release Previous Rx's Medication Instructions Recorded fluticasone propionate 50 1 spray intranasal BID #18 mL 12/20/21 mcg/actuation nasal spray,suspension (Flonase Allergy Relief) albuterol sulfate 90 mcg/actuation 2 puff inhalation Q6H PRN 03/21/22 aerosol inhaler shortness of breath #8.5 grams ipratropium 0.5 mg-albuterol 3 mg 3 ml inhalation Q6H PRN wheezing 07/22/22 (2.5 mg base)/3 mL nebulization #90 mL soln furosemide 40 mg tablet See Rx Instructions .Route 12/28/23 .COMPLEX #90 tabs amiodarone 200 mg tablet (Pacerone) 400 mg (2 x 200 mg) PO Q12H #60 12/30/23 tabs carbamazepine 200 mg tablet 200 mg PO BID #0 tabs 12/30/23 metolazone 2.5 mg tablet 2.5 mg PO DAILY PRN weight gain 12/30/23 #30 tabs tramadol 50 mg tablet 50 mg PO Q6H PRN pain #20 tabs 01/28/24 hydrocodone 5 mg-acetaminophen 325 1 tab PO Q6H PRN pain 5 days #20 02/04/24 mg tablet tabs shoulder immobilizer #1 ea 02/04/24 empagliflozin 10 mg tablet See Rx Instructions .Route 02/12/24 (Jardiance) .COMPLEX #90 tabs Allergies Allergy/AdvReac Type Severity Reaction Status Date / Time dronedarone Allergy Severe rash, Verified 02/04/24 13:14 swelling doxacurium Allergy HIVES,RASH Verified 02/04/24 13:14 sulfamethoxazole Allergy ALGY-Rash Verified 02/04/24 13:14 [From Bactrim] trimethoprim [From Bactrim] Allergy ALGY-Rash Verified 02/04/24 13:14 Review of Systems General: Reports: 10 or more systems reviewed and unremarkable except in HPI and below Const: Denies: fever(s), chills, change in appetite, change in weight, fatigue or malaise Eyes: Denies: change in vision, eye discomfort, eye discharge or eye redness ENMT: Denies: throat pain, enlarged tonsils, odynophagia, hoarseness, ear or mastoid pain, ear discharge, change in hearing, tinnitus, nasal discharge, nasal congestion, post nasal drip or sinus pain Card: Reports: palpitations, irregular heart rhythm, lightheadedness, dyspnea on exertion and orthopnea; Denies: chest pain, edema or leg pain with exertion Resp: Reports: dyspnea, non-productive cough, wheezing and chest congestion; Denies: productive cough or stridor GI: Denies: abdominal pain, nausea, vomiting, dysphagia, diarrhea, constipation, bloating, GI cramping or hematochezia : Denies: flank pain, difficulty voiding, dysuria, urinary frequency, urinary urgency, urinary hesitancy, oliguria or hematuria Musc: Denies: neck pain, back pain, extremity pain, joint pain, joint swelling, joint redness, joint warmth or muscle weakness Skin/Breast: Denies: rash, pruritus, erythema, photosensitivity or new lesions Neuro: Denies: headache(s), numbness in extremities, weakness in extremities, sensory changes, lack of coordination, difficulty walking, frequent falls, dizziness, confusion, Slurred speech present, difficulty communicating thoughts, seizure-like activity or involuntary movements Endo: Denies: polyuria, polydipsia or tired all the time Carlos/Lymph: Denies: easy bruising or easy bleeding PFSH ED PFSH: Medical History Sinus tachycardia Emphysema/COPD Fibromyalgia CHF (congestive heart failure) Atrial flutter History of coronary angiogram COPD (chronic obstructive pulmonary disease) GERD (gastroesophageal reflux disease) Tobacco dependency Osteoarthritis Rheumatoid arthritis Atrial fibrillation Hypertension Nonischemic cardiomyopathy Ejection fraction 20% Hypotension Edema leg Surgical History AICD (automatic cardioverter/defibrillator) present S/P tonsillectomy H/O: hysterectomy Family History Father Cancer Mother Cancer Sister Cancer Other CAD (coronary artery disease) Hyperlipidemia Hypertension Lung disease Denies family history of Psychiatric illness Social History Smoking and tobacco/nicotine status: current every day tobacco/nicotine user cigarettes Packs smoked per day: 2 Years cigarettes smoked: 50 [ Other cigarette details: Started at age 10 years] Alcohol intake: never Substance/Drug Use: never Physical Exam Const: COMMON NORMALS: no acute distress, patient oriented x3 and alert GENERAL APPEARANCE: cooperative ORIENTATION/CONSCIOUSNESS: Yes awake, Yes oriented to person, Yes oriented to place and Yes oriented to time Neck/C-Spine: COMMON NORMALS: full ROM GENERAL: Yes normal visual inspection Lymph: LYMPHATIC: no lymphadenopathy noted Chest: COMMONS NORMALS: normal inspection of the chest Breast/axilla inspection: Yes no chest deformity, asymmetry, normal contours, no nodules, masses, tenderness Resp: COMMON NORMALS: normal respiratory effort, No retractions and No use of accessory muscles EFFORT & INSPECTION: Yes symmetric chest movement, Yes tachypneic, Yes Actively coughing and Yes audible wheezes AUSCULTATION: crackles and diminished lung sounds bilateral in the lower lung diaz Cardio: COMMON NORMALS: Peripheral pulses 2+ throughout RATE: tachycardic (150s) RHYTHM: abnormal rhythm (Atrial fibrillation RVR) irregularly irregular PERIPHERAL PULSES: Peripheral pulses 2+ throughout GI: COMMON NORMALS: Normal to inspection, nondistended, normoactive bowel sounds present, Soft to palpation, non-tender and No hepatosplenomegaly present INSPECTION: Yes normal to inspection AUSCULTATION: Yes normoactive bowel sounds PALPATION: Yes Soft to palpation and Yes No hepatosplenomegaly present RECTAL EXAM: deferred Extremity: COMMON NORMALS: normal to inspection GENERAL: Yes normal exam except as noted (Immobilized right upper extremity for fracture) Neuro: COMMON NORMALS: patient oriented x3 SENSORIUM/ORIENTATION: Yes alert, Yes oriented to person, Yes oriented to place and Yes oriented to time CRANIAL NERVES: Yes CN normal except as noted Psych: COMMON NORMALS: mental status grossly normal, Normal thought process present, cooperative, activity/motor behavior normal, denies homicidal ideation and denies suicidal ideation THOUGHT PROCESS: Normal thought process present Skin: COMMON NORMALS: no rashes or lesions noted, no wounds and turgor normal GENERAL SKIN EXAM: no rashes or lesions noted and turgor normal Course Vital Signs: Vital signs: Vital Signs Temperature 98.1 F 02/13/24 19:41 Pulse Rate 110 H 02/13/24 21:51 Respiratory Rate 18 02/13/24 21:51 Blood Pressure 78/66 02/13/24 21:51 Pulse Oximetry 90 02/13/24 21:51 Oxygen Delivery Me thod Nasal Cannula 02/13/24 21:51 Oxygen Flow Rate 4 02/13/24 21:51 MDM - Arrhythmia/Palpitations Medical Decision Making Patient evaluated in the emergency department today for A-fib RVR. Patient reports that she has been feeling bad for the last for 5 days. She had a fall 4 days ago and fractured her right upper extremity. Currently immobilized. Patient had a heart rate in the 150s at triage. Initially she was normotensive and started on Cardizem. She received a bolus as well as the drip. We were titrating up on the drip and her blood pressures became soft. Her systolic in the 70s. We initiated a bolus but chest x-ray reveals likely pulmonary edema and fluids were discontinued and she was placed on pressors. Patient has no leukocytosis or anemias. She has a high BUN and creatinine but this appears to be her normal creatinine. She has no significant electrolyte abnormality. Her troponin is within normal limits and a 2-hour delta is pending. BNP 7300 which is higher than baseline. Hospitalist consulted at 2200. We are going to admit to [facility] and start her on amiodarone. Also going to start 1 mg/kg Lovenox twice daily. Hospitalist coming to see. Admit orders placed by Dr. Flores who is assisted throughout the care of this patient Lab Data 02/13/24 20:18 02/13/24 20:18 Radiology Impressions Chest X-Ray 02/13/24 19:45 IMPRESSION: Cardiomegaly with lung findings most suggestive of pulmonary edema. Laboratory Results WBC 7.87 10^3/uL (3.29-11.43) 02/13/24 20:18 RBC 4.15 10^6/uL (3.85-5.65) 02/13/24 20:18 Hgb 13.00 g/dL (11.27-16.99) 02/13/24 20:18 Hct 40.9 % (36-47) 02/13/24 20:18 MCV 98.6 fl (85-98) H 02/13/24 20:18 MCH 31.3 pg (27-33) 02/13/24 20:18 MCHC 31.8 g/dL (30-55) 02/13/24 20:18 RDW 13.5 % (12.1-15.1) 02/13/24 20:18 Plt Count 233 10^3/cmm (157-399) 02/13/24 20:18 MPV 10.4 fL (7.4-10.4) 02/13/24 20:18 Neut % (Auto) 81.1 % 02/13/24 20:18 Lymph % (Auto) 14.1 % 02/13/24 20:18 [place] % (Auto) 4.1 % 02/13/24 20:18 Eos % (Auto) 0.0 % 02/13/24 20:18 Baso % (Auto) 0.3 % 02/13/24 20:18 Neut # (Auto) 6.39 10^3/uL (1.8-7.7) 02/13/24 20:18 Lymph # (Auto) 1.1 10^3/uL (0.8-4.8) 02/13/24 20:18 [place] # (Auto) 0.3 10^3/uL (0.2-0.9) 02/13/24 20:18 Eos # (Auto) 0.0 10^3/uL (0.0-0.8) 02/13/24 20:18 Baso # (Auto) 0.0 10^3/uL (0.0-0.1) 02/13/24 20:18 Nucleated RBC % (auto) 0 % 02/13/24 20:18 Nucleated RBCs # 0.0 /100WBC 02/13/24 20:18 PT 14.50 SECONDS (12.1-14.9) 02/13/24 20:18 INR 1.10 (0.8-1.2) 02/13/24 20:18 Sodium 137 mmol/L (136-145) 02/13/24 20:18 Potassium 4.7 mmol/L (3.5-5.1) 02/13/24 20:18 Chloride 98 mmol/L (98-107) 02/13/24 20:18 Carbon Dioxide 26 mmol/L (22-29) 02/13/24 20:18 Anion Gap 17.7 (5-19) 02/13/24 20:18 BUN 25 mg/dL (8-23) H 02/13/24 20:18 Creatinine 1.1 mg/dL (0.5-0.9) H 02/13/24 20:18 GFR Calculation 49.7 mL/min (90-130) L 02/13/24 20:18 Glucose 176 mg/dL (65-115) H 02/13/24 20:18 Calculated Osmolality 293 mOsm/kg (285-295) 02/13/24 20:18 Calcium 9.1 mg/dL (8.5-10.5) 02/13/24 20:18 Total Bilirubin 0.6 mg/dL (0.15-1.2) 02/13/24 20:18 AST 18 U/L (0-32) 02/13/24 20:18 ALT 17 U/L (0-33) 02/13/24 20:18 Alkaline Phosphatase 216 U/L (35-105) H 02/13/24 20:18 Troponin T Baseline 8 ng/L (0-10) 02/13/24 20:18 NT-Pro-B Natriuret Pep 7294 pg/mL (0-125) H 02/13/24 20:18 Total Protein 6.2 g/dL (6.6-8.7) L 02/13/24 20:18 Albumin 3.5 g/dL (3.5-5.2) 02/13/24 20:18 Globulin 2.7 g/dL (1.3-4.6) 02/13/24 20:18 All radiology interpretation(s) finalized by discharge Discharge Plan Discharge Patient Disposition: Admitted As Inpatient Clinical Impression: Atrial fibrillation, Acute hypotension, Heart failure, Chronic renal disease Condition: Stable Prescriptions: No Action fluticasone propionate [Flonase Allergy Relief] 50 mcg/actuation spray,suspension 1 spray intranasal BID Qty: 18 3RF Rx Instructions: administer into each nostril albuterol sulfate 90 mcg/actuation HFA aerosol inhaler 2 puff INHALATION Q6H PRN (Reason: shortness of breath) Qty: 8.5 3RF ipratropium-albuterol 0.5 mg-3 mg(2.5 mg base)/3 mL solution for nebulization 3 ml inhalation Q6H PRN (Reason: wheezing) Qty: 90 3RF (DME) shoulder immobilizer See Rx Instructions .Route .MEDSUPPLY Qty: 1 0RF Rx Instructions: As directed. Order 99 days hydrocodone-acetaminophen 5-325 mg tablet 1 tab PO Q6H PRN (Reason: pain) 5 Days Qty: 20 0RF furosemide 40 mg tablet See Rx Instructions .ROUTE .COMPLEX Qty: 90 2RF Dose Instruction: Take 1 tablet by mouth once daily Rx Instructions: Take 1 tablet by mouth once daily Jardiance 10 mg tablet See Rx Instructions .ROUTE .COMPLEX Qty: 90 0RF Dose Instruction: Take 1 tablet by mouth once daily Rx Instructions: Take 1 tablet by mouth once daily gabapentin 400 mg capsule 400 mg PO TID PRN (Reason: nerve pain) atorvastatin 40 mg tablet 40 mg PO BEDTIME omeprazole 40 mg capsule,delayed release(DR/EC) 40 mg PO DAILY carbamazepine 200 mg Tablet 200 mg PO BID Qty: 0 0RF amiodarone [Pacerone] 200 mg Tablet 400 mg PO Q12H Qty: 60 0RF Rx Instructions: 2 tabs(400mg) twice daily for 5 days, 1 tab twice daily for 5 days, then 1 tab daily metolazone 2.5 mg tablet 2.5 mg PO DAILY PRN (Reason: weight gain) Qty: 30 0RF Rx Instructions: take for weight gain >3 pounds or shortness of breath or develop lower extremity edema tramadol 50 mg tablet 50 mg PO Q6H PRN (Reason: pain) Qty: 20 0RF Hold Instructions: Medication Not Effective Trelegy Ellipta 100-62.5-25 mcg blister with device 1 inh inhalation DAILY Referrals: Joni Duque MD [Primary Care Provider] - Coding Level of Care Code ED Manager Housekeeping for Kishan Sandhu
[2024-02-13 20:47] LABS: Basophils % 0.3 %; Hematocrit 40.9 % (36-47); Lymphocytes # 1.1 10^3/uL (0.8-4.8); Lymphocytes % 14.1 %; Mean Corpuscular HGB Conc 31.8 g/dL (30-55); Mean Corpuscular Hemoglobin 31.3 pg (27-33); Mean Corpuscular Volume 98.6 fl (85-98); Mean Platelet Volume 10.4 fL (7.4-10.4); Monocytes # 0.3 10^3/uL (0.2-0.9); Monocytes % 4.1 %; Neutrophils # 6.39 10^3/uL (1.8-7.7); Neutrophils % 81.1 %; Nucleated Red Blood Cells % 0 %; Platelet Count 233 10^3/cmm (157-399); Red Blood Count 4.15 10^6/uL (3.85-5.65); Red Cell Distribution Width 13.5 % (12.1-15.1); White Blood Count 7.87 10^3/uL (3.29-11.43)
[2024-02-13 20:54] LABS: Troponin(5th) Baseline 8 ng/L (0-10)
[2024-02-13 20:56] LABS: Alanine Aminotransferase 17 U/L (0-33); Albumin Level 3.5 g/dL (3.5-5.2); Alkaline Phosphatase 216 U/L (35-105); Anion Gap 17.7 (5-19); Aspartate Amino Transferase 18 U/L (0-32); Blood Urea Nitrogen 25 mg/dL (8-23); Calcium 9.1 mg/dL (8.5-10.5); Carbon Dioxide 26 mmol/L (22-29); Chloride 98 mmol/L (98-107); Creatinine Clr Calc Pharmacy 62.1198; Globulin 2.7 g/dL (1.3-4.6); Glomerular Filtration Rate 49.7 mL/min (90-130); Glucose 176 mg/dL (65-115); Osmolality Calculated 293 mOsm/kg (285-295); Potassium 4.7 mmol/L (3.5-5.1); Sodium 137 mmol/L (136-145); Total Bilirubin 0.6 mg/dL (0.15-1.2); Total Protein 6.2 g/dL (6.6-8.7)
[2024-02-13] MEDS: sodium chloride 0.9% 1,000 ML 999 ML IV (21:39)
[2024-02-13] MEDS: dilTIAZem 5 mg/mL SDV 5 mL 20 MG IVP (21:44)
--- NOTE | 2024-02-13 21:51 | PC.NURSE ---
pt normally wears 2L nc at home as needed.
[2024-02-13 21:52] LABS: NT Pro B Type Natriuretic Pept 7294 pg/mL (0-125)
--- NOTE | 2024-02-13 22:08 | P.HP_ITS ---
Providers/Chief Complaint 2 Primary Care Provider: Joni Duque MD Chief Complaint: afib high HR History of Present Illness Shana Roy is a 64 year old female with history of nonischemic cardiomyopathy EF 20%, diabetic, rheumatoid arthritis, noncompliant, dietary indiscretion, chronic hypoxia uses 2 to 3 L of oxygen on as needed basis presented with chief complaint of worsening of shortness of breath and lightheadedness. Patient is stating that lately she has been more lethargic fatigue and has been experiencing dizziness. She describes her dizziness as lightheadedness. Few weeks ago she was cardioverted for A-fib RVR. She is on Eliquis along amiodarone. Patient is stating that she takes prednisone 20 mg twice daily on as-needed basis she has not seen a tester printed circuit boards, plater printed circuit board panels in a long time. She does not follow a good diabetic sodium restricted diet, she is eating a lot of junk food and drinks a lot of soda. No recent chest pain, nausea, vomiting, diarrhea or dysuria. In the ER she was diagnosed with A-fib RVR, her blood pressure dropped after getting Cardizem bolus and the drip when you call me to admit the patient I recommended amiodarone and discontinue Cardizem drip Normally her blood pressure is in 100s at home, patient is stating that she was not sure if she is diabetic but she is on Jardiance, but she was also surprised when I ask if EF was 20% however it was endorsed by her daughter Patient is stating that she has been very dizzy lately, recently had a serious fall with caused fracture of right arm currently arm is in a sling she has seen Dr. Mattson CBC BMP unremarkable other than high BNP and pulm edema on x-ray at the time of my evaluation heart rate is in low 100s, blood pressure improved it was 107/60 mmHg Review of Systems 2 Const: Reports: change in weight; Denies: fever(s) or diaphoresis Eyes: Denies: change in vision Card: Reports: palpitations and swelling of feet/ankles Resp: Reports: dyspnea GI: Denies: abdominal pain : Denies: flank pain Musc: Denies: neck pain Skin/Breast: Reports: rash and breast tenderness Medications/Allergies Home Medications Medication Instructions Recorded Confirmed Last Taken Type gabapentin 400 mg capsule 400 mg PO TID PRN nerve pain 11/14/19 02/04/24 10/25/22 History fluticasone propionate 50 1 spray intranasal BID #18 mL 12/20/21 02/04/24 12/28/23 Rx mcg/actuation nasal spray,suspension (Flonase Allergy Relief) albuterol sulfate 90 mcg/actuation 2 puff inhalation Q6H PRN 03/21/22 02/04/24 Unknown Rx aerosol inhaler shortness of breath #8.5 grams ipratropium 0.5 mg-albuterol 3 mg 3 ml inhalation Q6H PRN wheezing 07/22/22 02/04/24 Unknown Rx (2.5 mg base)/3 mL nebulization #90 mL soln fluticasone fur. 100 mcg-umeclid 1 inh inhalation DAILY 10/25/22 02/04/24 12/28/23 History 62.5 mcg-vilant 25 mcg inhalat.powder (Trelegy Ellipta) furosemide 40 mg tablet See Rx Instructions .Route 12/28/23 02/04/24 12/28/23 Rx .COMPLEX #90 tabs atorvastatin 40 mg tablet 40 mg PO BEDTIME 12/29/23 02/04/24 12/27/23 History omeprazole 40 mg capsule,delayed 40 mg PO DAILY 12/29/23 02/04/24 12/28/23 History release amiodarone 200 mg tablet (Pacerone) 400 mg (2 x 200 mg) PO Q12H #60 12/30/23 02/04/24 Unknown Rx tabs carbamazepine 200 mg tablet 200 mg PO BID #0 tabs 12/30/23 02/04/24 Unknown Rx metolazone 2.5 mg tablet 2.5 mg PO DAILY PRN weight gain 12/30/23 02/04/24 10/25/22 Rx #30 tabs tramadol 50 mg tablet 50 mg PO Q6H PRN pain #20 tabs 01/28/24 02/04/24 Unknown Rx hydrocodone 5 mg-acetaminophen 325 1 tab PO Q6H PRN pain 5 days #20 02/04/24 02/04/24 Unknown Rx mg tablet tabs shoulder immobilizer #1 ea 02/04/24 02/04/24 Unknown Rx empagliflozin 10 mg tablet See Rx Instructions .Route 02/12/24 Unknown Rx (Jardiance) .COMPLEX #90 tabs Allergies Allergy/AdvReac Type Severity Reaction Status Date / Time dronedarone Allergy Severe rash, Verified 02/04/24 13:14 swelling doxacurium Allergy HIVES,RASH Verified 02/04/24 13:14 sulfamethoxazole Allergy ALGY-Rash Verified 02/04/24 13:14 [From Bactrim] trimethoprim [From Bactrim] Allergy ALGY-Rash Verified 02/04/24 13:14 PFSH Acute 2 PFSH: Medical History Sinus tachycardia Emphysema/COPD Fibromyalgia CHF (congestive heart failure) Atrial flutter History of coronary angiogram COPD (chronic obstructive pulmonary disease) GERD (gastroesophageal reflux disease) Tobacco dependency Osteoarthritis Rheumatoid arthritis Atrial fibrillation Hypertension Nonischemic cardiomyopathy Ejection fraction 20% Hypotension Edema leg Surgical History AICD (automatic cardioverter/defibrillator) present S/P tonsillectomy H/O: hysterectomy Family History Father Cancer Mother Cancer Sister Cancer Other CAD (coronary artery disease) Hyperlipidemia Hypertension Lung disease Denies family history of Psychiatric illness Social History Smoking and tobacco/nicotine status: current every day tobacco/nicotine user cigarettes Packs smoked per day: 2 Years cigarettes smoked: 50 [ Other cigarette details: Started at age 10 years] Alcohol intake: never Substance/Drug Use: never Vitals/I&O/Wt Last Vital Signs Temp 98.1 F 02/13/24 19:41 Pulse 110 H 02/13/24 21:51 Resp 18 02/13/24 21:51 BP 78/66 02/13/24 21:51 Pulse Ox 90 02/13/24 21:51 O2 Del Method Nasal Cannula 02/13/24 21:51 O2 Flow Rate 4 02/13/24 21:51 02/13/24 02/13/24 02/13/24 06:59 14:59 22:59 Intake Total 224.408 / 224.408 Balance 224.408 / 224.408 Weight last 48 hrs Weight 106.594 kg Physical Exam 2 Narrative: Signs of fluid overload pleasant Very pleasant cooperative currently on 3 L nasal cannula S1, S2 variable with A-fib RVR Heart rate around 110 Blood pressure stable Sign of fluid overload present Distended abdomen nontender Right arm in a sling GCS 15 nonfocal neuroexam Daughters at the bedside Data 02/13/24 20:18 02/13/24 20:18 A&P Assessment and plan (1) Acute hypotension: (2) Heart failure: (3) Chronic combined systolic and diastolic heart failure: (4) Atrial fibrillation: (5) Nonischemic cardiomyopathy: (6) AICD (automatic cardioverter/defibrillator) present: (7) Dyspnea: (8) Fatigue: (9) Hilar adenopathy: (10) Tobacco dependency: Plan Systolic CHF exacerbation Start diuresis when blood pressure improves Dietary indiscretion patient does not follow a good sodium restricted diet drinks a lot of soda Nonischemic cardiomyopathy status post AICD Pulm edema evident on x-ray A-fib RVR Discontinue Cardizem drip, blood pressure dropped after getting Cardizem in the ER Admit to ICU monitor closely Blood pressure has improved but the time I have seen her, I will put her on amiodarone drip She has received first dose of therapeutic Lovenox, she takes Eliquis which I will resume No active chest pain, Presyncope, lightheaded Likely related to tachyarrhythmia A-fib with RVR, patient is stating at home heart rate was 148 Rheumatoid arthritis no acute flare, patient is stating that she has not seen a plater printed circuit board panels in a long time she takes prednisone as needed basis Her last dose of prednisone was 20 mg which she took yesterday Patient is stating that she takes prednisone only on as-needed basis however she was prescribed on daily basis when I questioned her why she is still on high- dose steroids her daughter's home that she has not seen a plater printed circuit board panels in a long time I have given her 1 dose of stress dose steroids Cardiac consistent carb diet: Will use sliding scale DVT prophylaxis covered with Eliquis Attestations 2 Medical Necessity Statement*: Anticipating more than 2 midnights for management of CHF exacerbation, A-fib RVR Diagnoses Acute hypotension I95.9 Heart failure I50.9 Chronic combined systolic and diastolic heart failure I50.42 Atrial fibrillation I48.91 Nonischemic cardiomyopathy I42.8 AICD (automatic cardioverter/defibrillator) present Z95.810 Dyspnea R06.00 Fatigue R53.83 Hilar adenopathy R59.0 Tobacco dependency F17.200
[2024-02-13] MEDS: amiodarone 50 mg/mL SDV 3 mL 150 MG IVP (22:38)
[2024-02-13] MEDS: norepinephrine 4 MG/250 ML BAG 7.5 MG IV ×2 (22:39→22:44)
[2024-02-13] MEDS: enoxaparin 100 mg/mL Syringe 106 MG SUBCUT (22:42)
[2024-02-13 22:43] LABS: Troponin 5 2HR 7.36 ng/L (0-10)
[2024-02-13 22:44] LABS: Troponin 5 2HR Delta -0.64 ABS# (0-10)
--- NOTE | 2024-02-13 23:42 | ECG_ITS ---
[facility]24[facility]13 Pat Name: Shana Roy Department: Room: [facility] Gender: Female Health Information Technologist: : 1960 Requested By: Kike Degroot Order Number: [id number] Reading MD: Dangelo Florez M.D. Measurements Intervals [place] Rate: 127 P: 0 [place]: 0 QRS: 63 QRSD: 131 T: 110 QT: 375 QTc: 545 Interpretive Statements ATRIAL FLUTTER/TACHYCARDIA WITH RAPID VENTRICULAR RESPONSE INTRAVENTRICULAR CONDUCTION DELAY [130+ ms QRS DURATION] Compared to ECG 02/13/2024 19:37:36 Ventricular premature complex(es) no longer present Aberrant conduction of supraventricular beat(s) no longer present T-wave abnormality no longer present Possible ischemia no longer present Electronically Signed On 02-14-2024 22:37:26 SOCIAL SCIENCES INSTRUCTOR by Dangelo Florez M.D. [id number]
[2024-02-14] VITALS (49 sets, daily range): BP systolic 81–161; BP diastolic 43–117; PULSE 8–140; RESP 14–25; TEMP 36.3–36.6; O2SAT 79–98
[2024-02-14] MEDS: hydrocortisone 100 mg/2 mL SDV IVP (00:23)
--- NOTE | 2024-02-14 01:45 | ECG_ITS ---
[facility] Date[facility] 2024-02[facility]14 Pat Name: Shana Roy Department: Room: [facility] Gender: Female Cycle Specialist: : 1960 Requested By: Kike Degroot Order Number: [id number] Patty MD: Dangelo Florez M.D. Measurements Intervals [place] Rate: 114 P: 0 [place]: 0 QRS: 69 QRSD: 138 T: 107 QT: 375 QTc: 517 Interpretive Statements ATRIAL FLUTTER/TACHYCARDIA WITH RAPID VENTRICULAR RESPONSE INTRAVENTRICULAR CONDUCTION DELAY [130+ ms QRS DURATION] Compared to ECG 02/13/2024 23:42:13 No significant changes Electronically Signed On 02-14-2024 22:37:28 POWER BARKER by Dangelo Florez M.D. [email or web address]
--- NOTE | 2024-02-14 03:05 | PC.NURSE ---
Attempted 2 IV insertions. Obtained slight blood return. Unable to thread. Patient c/o pain during insertion. HR up to 130'3.
[2024-02-14 03:32] LABS: Basophils % 0.3 %; Hematocrit 40.7 % (36-47); Lymphocytes # 1.4 10^3/uL (0.8-4.8); Lymphocytes % 18.5 %; Mean Corpuscular HGB Conc 31.4 g/dL (30-55); Mean Corpuscular Hemoglobin 31.3 pg (27-33); Mean Corpuscular Volume 99.5 fl (85-98); Monocytes # 0.6 10^3/uL (0.2-0.9); Monocytes % 7.2 %; Neutrophils # 5.66 10^3/uL (1.8-7.7); Neutrophils % 73.7 %; Nucleated Red Blood Cells % 0 %; Platelet Count 222 10^3/cmm (157-399); Red Blood Count 4.09 10^6/uL (3.85-5.65); Red Cell Distribution Width 13.6 % (12.1-15.1); White Blood Count 7.67 10^3/uL (3.29-11.43)
[2024-02-14 03:54] LABS: Troponin 5 6HR Delta 0 ng/L (0-12)
[2024-02-14] MEDS: hyDRALAzine 20 mg/mL INJ 1 mL 5 MG IVP (04:45)
[2024-02-14 05:53] LABS: Anion Gap 17.4 (5-19); Blood Urea Nitrogen 24 mg/dL (8-23); Calcium 9.1 mg/dL (8.5-10.5); Carbon Dioxide 26 mmol/L (22-29); Chloride 100 mmol/L (98-107); Creatinine Clr Calc Pharmacy 70.0755; Glomerular Filtration Rate 55.5 mL/min (90-130); Glucose 148 mg/dL (65-115); Magnesium 2.3 mg/dL (1.7-2.3); Osmolality Calculated 295 mOsm/kg (285-295); Potassium 4.4 mmol/L (3.5-5.1); Sodium 139 mmol/L (136-145)
--- NOTE | 2024-02-14 06:58 | PM.PN ---
Subjective Subjective: Patient still in A-fib RVR with hypotension Amiodarone 0.5 mg Given 500 mcg digoxin 1 dose today Will ask cardiology to evaluate her as well, patient required cardioversion last time Vitals/I&O/Wt Last Vital Signs Temp 97.4 F L 02/14/24 05:00 Pulse 140 H 02/14/24 05:46 Resp 19 H 02/14/24 05:30 BP 144/110 02/14/24 05:30 Pulse Ox 93 02/14/24 05:30 O2 Del Method Nasal Cannula 02/13/24 23:30 O2 Flow Rate 4 02/13/24 22:55 02/13/24 02/13/24 02/14/24 14:59 22:59 06:59 Intake Total 235.366 / 235.366 426.375 / 661.741 Output Total 350 / 350 Balance 235.366 / 235.366 76.375 / 311.741 Weight last 48 hrs Weight 111.584 kg Weight 111.72 kg Weight 106.594 kg Physical Exam Narrative: Signs of fluid overload A-fib RVR Hypertension No known neurological deficit GCS 15 nonfocal neuroexam Currently on 2 L nasal cannula Distended abdomen Anasarca Data 02/14/24 02:06 02/14/24 04:24 A&P Assessment and plan (1) Acute hypotension: (2) Heart failure: (3) Chronic combined systolic and diastolic heart failure: (4) Atrial fibrillation: (5) Nonischemic cardiomyopathy: (6) AICD (automatic cardioverter/defibrillator) present: (7) Dyspnea: (8) Fatigue: (9) Hilar adenopathy: (10) Tobacco dependency: Plan Systolic CHF exacerbation Can resume diuresis this morning blood pressure is on higher side, she is not hypotensive anymore Patient has EF of 20% Status post ASD A-fib RVR Given 500 mcg of digoxin 1 dose this morning Continue amiodarone drip Continue Eliqufranca Presyncope, lightheaded No active symptoms at this point Rheumatoid arthritis no acute flare: She was given 1 dose of stress dose steroid overnight, no continuation needed at this point there is no sign of shock at this point Cardiac consistent carb diet: Will use sliding scale DVT prophylaxis covered with Lissethqufranca Patient is noncompliant, does not take her medications on regular basis, Full code Attestations Medical Necessity Statement*: Continue medical management Diagnoses Acute hypotension I95.9 Heart failure I50.9 Chronic combined systolic and diastolic heart failure I50.42 Atrial fibrillation I48.91 Nonischemic cardiomyopathy I42.8 AICD (automatic cardioverter/defibrillator) present Z95.810 Dyspnea R06.00 Fatigue R53.83 Hilar adenopathy R59.0 Tobacco dependency F17.200
[2024-02-14 07:57] LABS: Glucose Point of Care 189 mg/dL (70-110)
[2024-02-14] MEDS: nystatin powder 15 gm Btl 1 APPLIC TOPICAL ×3 (08:30→21:04)
[2024-02-14] MEDS: pantoprazole DR 40 mg Tablet PO (08:30)
[2024-02-14] MEDS: apixaban 5 mg Tablet PO ×2 (08:31→21:04)
[2024-02-14] MEDS: sennosides-docusate Tablet 1 TAB PO (08:31)
[2024-02-14] MEDS: insulin lispro 100 unit/1 mL SUBCUT (08:31)
[2024-02-14] MEDS: FUROsemide 10 mg/mL SDV 10mL 40 MG IVP (08:31)
[2024-02-14] MEDS: budesonide 0.5 mg/2 mL Neb INHALATION ×2 (09:10→19:58)
[2024-02-14] MEDS: ipratropium-albuterol 3 mL Neb INHALATION ×4 (09:11→19:58)
--- NOTE | 2024-02-14 10:00 | P.CONIM_ITS ---
Providers/Reason For Consult 2 Consulting Physician/Specialty*: VAL Florez MD/cardiology Reason for Consult*: Patient with atrial fibrillation rapid ventricular rate, history of cardiomyopathy Requesting Physician: Dr. Segura Attending Physician: Roxana Segura MD Primary Care Provider: Joni Duque MD History of Present Illness History of Present Illness Shana Roy is a 64 year old female presents with complaints of increasing palpitation, shortness of breath and generalized weakness. This patient has a history of chronic intermittent atrial fibrillation, nonischemic cardiomyopathy and congestive heart failure. She apparently has been at her baseline state of health up until 3 days ago when she tried having the palpitation associated shortness of breath. Her symptoms started getting worse. For these complaints, she decided to come to the hospital. She was found to be atrial fibrillation rapid ventricular rate. Initially was started on IV Cardizem. Because of the hypotension, it was discontinued. Then she was started on amiodarone. Then again, the blood pressure was dropping. So the amiodarone was discontinued. She was about to get IV digoxin. Then she spontaneously converted to sinus rhythm. At the time of my examination, patient seems to be in sinus rhythm. This patient apparently is very noncompliant with medications and follow-ups. Several months ago, she stopped many of her medications including oral anticoagulant. She do not know all the medications that she stopped. 5 weeks ago, she fell and sustained a broken shoulder on the right side. She has no chest pain. No fever, chills or cough. On of november, she was admitted to the hospital with features of hypoxic respiratory failure, atrial fibrillation rapid ventricular rate. She apparently was hypotensive in the emergency room. She was cardioverted and was placed on amiodarone. She also had pneumonia by chest x-ray. She was treated with antibiotics. She was placed on p.o. amiodarone and Eliquis. She was discharged home with these medications. This patient is known to have a nonischemic cardiomyopathy. She had a cardiac catheterization January of 2022 and was found to have no significant obstructive coronary artery disease. She also is known to have chronic atrial fibrillation and is on long-term oral anticoagulation. She had a prophylactic ICD placement last year. The ICD function seems to be appropriate. The LV ejection fraction was 25% by echocardiogram in January of 2022. She is also known to have COPD and obstructive sleep apnea. She is on a CPAP machine. She has a history of intermittent COPD exacerbation. She has been on prednisone off and on for many years. No history for diabetes. Review of Systems 2 Narrative: CONSTITUTIONAL: No fever or chills. EYES: No blurring of vision or other visual disturbances lately. ENT: No hoarseness of voice, auditory disturbances or sore throat. CARDIOVASCULAR: As mentioned above. RESPIRATORY: COPD and obstructive sleep apnea as mentioned above GASTROINTESTINAL: No hematemesis or melena. GENITOURINARY: No dysuria or hematuria. INTEGUMENTARY: No skin rashes or history of skin cancer. NEURO: No transient ischemic attacks or amaurosis. PSYCHIATRIC: No history of psychosis or major depression. HEMATOLOGIC: Has been on long-term oral anticoagulation. ENDOCRINE: No history of polyuria or polydipsia. MUSCULOSKELETAL: No recent joint pain or swelling. ALLERGY/IMMUNOLOGY: As mentioned above. Medications/Allergies Home Medications Medication Instructions Recorded Confirmed Last Taken Type albuterol sulfate 90 mcg/actuation 2 puff inhalation Q6H PRN 03/21/22 02/14/24 Unknown Rx aerosol inhaler shortness of breath #8.5 grams ipratropium 0.5 mg-albuterol 3 mg 3 ml inhalation Q6H PRN wheezing 07/22/22 02/14/24 Unknown Rx (2.5 mg base)/3 mL nebulization #90 mL soln fluticasone fur. 100 mcg-umeclid 1 inh inhalation DAILY 10/25/22 02/14/24 12/28/23 History 62.5 mcg-vilant 25 mcg inhalat.powder (Trelegy Ellipta) atorvastatin 40 mg tablet 40 mg PO BEDTIME 12/29/23 02/14/24 12/27/23 History omeprazole 40 mg capsule,delayed 40 mg PO DAILY 12/29/23 02/14/24 02/13/24 History release amiodarone 200 mg tablet (Pacerone) 400 mg (2 x 200 mg) PO Q12H #60 12/30/23 02/14/24 Unknown Rx tabs metolazone 2.5 mg tablet 2.5 mg PO DAILY PRN weight gain 12/30/23 02/14/24 10/25/22 Rx #30 tabs tramadol 50 mg tablet 50 mg PO Q6H PRN pain #20 tabs 01/28/24 02/14/24 Unknown Rx hydrocodone 5 mg-acetaminophen 325 1 tab PO Q6H PRN pain 5 days #20 02/04/24 02/14/24 Unknown Rx mg tablet tabs shoulder immobilizer #1 ea 02/04/24 02/14/24 Unknown Rx apixaban 5 mg tablet (Eliquis) 5 mg PO BID 02/14/24 02/14/24 Unknown History empagliflozin 10 mg tablet 10 mg PO DAILY 02/14/24 02/14/24 02/13/24 History (Jardiance) furosemide 40 mg tablet 40 mg PO DAILY 02/14/24 02/14/24 02/13/24 History metoprolol succinate 25 mg 25 mg PO DAILY 02/14/24 02/14/24 Unknown History tablet,extended release 24 hr nystatin 100,000 unit/gram topical 1 applic topical TID PRN Skin 02/14/24 02/14/24 Unknown History cream Irritation potassium chloride 20 mEq 20 meq PO DAILY 02/14/24 02/14/24 Unknown History tablet,extended release(part/cryst) Allergies Allergy/AdvReac Type Severity Reaction Status Date / Time dronedarone Allergy Severe rash, Verified 02/04/24 13:14 swelling doxacurium Allergy HIVES,RASH Verified 02/04/24 13:14 sulfamethoxazole Allergy ALGY-Rash Verified 02/04/24 13:14 [From Bactrim] trimethoprim [From Bactrim] Allergy ALGY-Rash Verified 02/04/24 13:14 Current Medications Generic Name Dose Route Start Last Admin Trade Name Freq PRN Reason Stop Dose Admin Albuterol/Ipratropium 3 ml 02/14/24 08:00 02/14/24 09:11 Ipratropium-Albuterol 3 Ml Neb INHALATION 3 ml QID.RESPIRATORY RUSSELL Administration Apixaban 5 mg 02/14/24 09:00 02/14/24 08:31 Apixaban 5 Mg Tablet PO 5 mg BID@0900,2100 RUSSELL Administration Budesonide 0.5 mg 02/14/24 08:00 02/14/24 09:10 Budesonide 0.5 Mg/2 Ml Neb INHALATION 0.5 mg BID.RESPIRATORY RUSSELL Administration Furosemide 40 mg 02/14/24 09:00 02/14/24 08:31 Furosemide 10 Mg/Ml Sdv 10ml IVP 40 mg Q12H RUSSELL Administration Amiodarone HCl/Dextrose 360 mg in 200 mls @ 0 mls/hr 02/13/24 22:09 02/14/24 04:50 Nexterone IV 0.5 mg/min .Q0M RUSSELL 16.67 mls/hr Administration Protocol Per Protocol Insulin Human Lispro 0 unit 02/14/24 08:00 02/14/24 08:31 Insulin Lispro 100 Unit/1 Ml SUBCUT 6 unit TIDWM RUSSELL Administration Protocol Nystatin 1 applic 02/14/24 09:00 02/14/24 08:30 Nystatin Powder 15 Gm Btl TOPICAL 1 applic TID RUSSELL Administration Pantoprazole Sodium 40 mg 02/14/24 09:00 02/14/24 08:[address] 40 Mg Tablet PO 40 mg DAILY RUSSELL Administration Senna/Docusate Sodium 1 tab 02/14/24 09:00 02/14/24 08:31 Sennosides-Docusate Tablet PO 1 tab DAILY RUSSELL Administration PFSH Acute 2 PFSH: Medical History Sinus tachycardia Emphysema/COPD Fibromyalgia CHF (congestive heart failure) Atrial flutter History of coronary angiogram COPD (chronic obstructive pulmonary disease) GERD (gastroesophageal reflux disease) Tobacco dependency Osteoarthritis Rheumatoid arthritis Atrial fibrillation Hypertension Nonischemic cardiomyopathy Ejection fraction 20% Hypotension Edema leg Surgical History AICD (automatic cardioverter/defibrillator) present S/P tonsillectomy H/O: hysterectomy Family History Father Cancer Mother Cancer Sister Cancer Other CAD (coronary artery disease) Hyperlipidemia Hypertension Lung disease Denies family history of Psychiatric illness Social History Smoking and tobacco/nicotine status: current every day tobacco/nicotine user cigarettes Packs smoked per day: 2 Years cigarettes smoked: 50 [ Other cigarette details: Started at age 10 years] Alcohol intake: never Substance/Drug Use: never Vitals/I&O/Wt Last Vital Signs Temp 97.4 F L 02/14/24 05:00 Pulse 69 02/14/24 09:11 Resp 20 H 02/14/24 09:11 BP 144/110 02/14/24 05:30 Pulse Ox 97 02/14/24 09:11 O2 Del Method Nasal Cannula 02/14/24 09:11 O2 Flow Rate 2 02/14/24 09:11 02/13/24 02/14/24 02/14/24 22:59 06:59 14:59 Intake Total 235.366 / 235.366 426.375 / 661.741 120 / 120 Output Total 350 / 350 Balance 235.366 / 235.366 76.375 / 311.741 120 / 120 Weight last 48 hrs Weight 246 lb Weight 246 lb 4.8 oz Weight 235 lb Physical Exam 2 Narrative: GENERAL: The patient is alert and oriented times three. Not in any acute distress. HEENT: No significant pallor, icterus or lymphadenopathy.Oral cavity: There are no mucous membrane lesions. NECK: Trachea appears to be central. No masses noted. No JVD or thyromegaly appreciated. RESPIRATORY: Chest is symmetrical. No intercostals muscle retraction or any accessory muscle activation. There is no chest wall tenderness. Breath sounds are heard bilaterally. No rales or rhonchi heard. No evidence of any consolidation. BREASTS: Deferred. HEART: The heart sounds are normal. No S3 or S4. Short systolic murmur in the lower sternal border. No diastolic murmurs. No pericardial rub ABDOMEN: No vessel pulsations or distention. No tenderness. No organomegaly appreciated. Bowel sounds are normally heard. : Deferred. RECTAL: Deferred. LYMPHATIC: No lymphadenopathy noted in the neck. EXTREMITIES: No edema or cyanosis. No clubbing. MUSCULOSKELETAL: No acute joint deformities or swelling SKIN: There are no significant rashes or ecchymosis NEUROPSYCHIATRIC: The patient is alert and oriented x3. Appears to be in a good mood. No tremors or rigidity noted. Data 02/14/24 02:06 02/14/24 04:24 Other Labs: Laboratory Last Values WBC 7.67 10^3/uL (3.29-11.43) 02/14/24 02:06 RBC 4.09 10^6/uL (3.85-5.65) 02/14/24 02:06 Hgb 12.80 g/dL (11.27-16.99) 02/14/24 02:06 Hct 40.7 % (36-47) 02/14/24 02:06 MCV 99.5 fl (85-98) H 02/14/24 02:06 MCH 31.3 pg (27-33) 02/14/24 02:06 MCHC 31.4 g/dL (30-55) 02/14/24 02:06 RDW 13.6 % (12.1-15.1) 02/14/24 02:06 Plt Count 222 10^3/cmm (157-399) 02/14/24 02:06 MPV 11.0 fL (7.4-10.4) H 02/14/24 02:06 Neut % (Auto) 73.7 % 02/14/24 02:06 Lymph % (Auto) 18.5 % 02/14/24 02:06 [place] % (Auto) 7.2 % 02/14/24 02:06 Eos % (Auto) 0.0 % 02/14/24 02:06 Baso % (Auto) 0.3 % 02/14/24 02:06 Neut # (Auto) 5.66 10^3/uL (1.8-7.7) 02/14/24 02:06 Lymph # (Auto) 1.4 10^3/uL (0.8-4.8) 02/14/24 02:06 [place] # (Auto) 0.6 10^3/uL (0.2-0.9) 02/14/24 02:06 Eos # (Auto) 0.0 10^3/uL (0.0-0.8) 02/14/24 02:06 Baso # (Auto) 0.0 10^3/uL (0.0-0.1) 02/14/24 02:06 Nucleated RBC % (auto) 0 % 02/14/24 02:06 Nucleated RBCs # 0.0 /100WBC 02/14/24 02:06 PT 14.50 SECONDS (12.1-14.9) 02/13/24 20:18 INR 1.10 (0.8-1.2) 02/13/24 20:18 Sodium 139 mmol/L (136-145) 02/14/24 04:24 Potassium 4.4 mmol/L (3.5-5.1) 02/14/24 04:24 Chloride 100 mmol/L (98-107) 02/14/24 04:24 Carbon Dioxide 26 mmol/L (22-29) 02/14/24 04:24 Anion Gap 17.4 (5-19) 02/14/24 04:24 BUN 24 mg/dL (8-23) H 02/14/24 04:24 Creatinine 1.0 mg/dL (0.5-0.9) H 02/14/24 04:24 GFR Calculation 55.5 mL/min (90-130) L 02/14/24 04:24 Glucose 148 mg/dL (65-115) H 02/14/24 04:24 POC Glucose 189 mg/dL (70-110) H 02/14/24 07:51 Calculated Osmolality 295 mOsm/kg (285-295) 02/14/24 04:24 Calcium 9.1 mg/dL (8.5-10.5) 02/14/24 04:24 Magnesium 2.3 mg/dL (1.7-2.3) 02/14/24 04:24 Total Bilirubin 0.6 mg/dL (0.15-1.2) 02/13/24 20:18 AST 18 U/L (0-32) 02/13/24 20:18 ALT 17 U/L (0-33) 02/13/24 20:18 Alkaline Phosphatase 216 U/L (35-105) H 02/13/24 20:18 Troponin T Baseline 8 ng/L (0-10) 02/13/24 20:18 Troponin T 120 Minute 7.36 ng/L (0-10) 02/13/24 22:12 Delta Troponin T -0.64 ABS# (0-10) L 02/13/24 22:12 Troponin T Hi Sens 6Hr 8.00 ng/L (0-10) 02/14/24 02:06 Troponin T Hi Sens 6Hr Delta 0 ng/L (0-12) 02/14/24 02:06 C-Reactive Protein 77.0 mg/L (0.0-4.9) H 02/14/24 04:24 NT-Pro-B Natriuret Pep 7294 pg/mL (0-125) H 02/13/24 20:18 Total Protein 6.2 g/dL (6.6-8.7) L 02/13/24 20:18 Albumin 3.5 g/dL (3.5-5.2) 02/13/24 20:18 Globulin 2.7 g/dL (1.3-4.6) 02/13/24 20:18 EKG 1: My Interpretation: The EKG showed a atrial flutter with a rapid ventricular rate of 114 bpm nonspecific IVCD. A&P Assessment and plan (1) Congestive heart failure: Patient may be treated with careful IV diuresis. He apparently stopped taking the heart failure medications namely Entresto. She may be placed back on this medication. Qualifiers: Heart failure type: systolic Heart failure chronicity: acute on chronic Qualified Code(s): I50.23 - Acute on chronic systolic (congestive) heart failure (2) Atrial fibrillation and flutter: I may keep the patient on amiodarone 400 mg p.o. 3 times daily. Also may started on a low-dose of beta-luana, if the blood pressure tolerates. It is not very sure whether the patient has been compliant with the amiodarone since the last hospital discharge. I will confirm this with the family members. Patient seems to be forgetful about her medications. (3) Nonischemic cardiomyopathy: Patient had a cardiac catheterization in January 2022 and was found to have no significant obstructive coronary disease. Optimizing the medical treatment based on GDMT, would be the plan of action. (4) Benign essential hypertension with target blood pressure below 140/90: Patient may be started on Entresto twice daily. The dose may be gradually increased as her blood pressure tolerates. (5) AICD (automatic cardioverter/defibrillator) present: The device was interrogated on the . Was found to have a normal sensing and pacing functions. No ICD discharges. Will continue on the current treatment. (6) COPD (chronic obstructive pulmonary disease): May continue on the current management. Qualifiers: COPD type: unspecified COPD Qualified Code(s): J44.9 - Chronic obstructive pulmonary disease, unspecified Plan Patient patient reviewing progress, further recommendations will be made. Thank you for the opportunity to evaluate this patient and make these recommendations Consult Attestations 2 Medical Necessity Statement: Patient requires continued hospital stay for close monitoring and further management Coding Level of Care Code 37299 Diagnoses Acute on chronic systolic congestive heart failure I50.23 Heart failure type: systolic Heart failure chronicity: acute on chronic Atrial fibrillation and flutter I48.91; I48.92 Nonischemic cardiomyopathy I42.8 Benign essential hypertension with target blood pressure below 140/90 I10 AICD (automatic cardioverter/defibrillator) present Z95.810 COPD (chronic obstructive pulmonary disease) J44.9 COPD type: unspecified COPD
[2024-02-14] MEDS: amiodarone 200 mg Tablet 400 MG PO ×3 (10:45→21:04)
[2024-02-14 10:52] LABS: Glucose Point of Care 99 mg/dL (70-110)
[2024-02-14 17:05] LABS: Glucose Point of Care 108 mg/dL (70-110)
[2024-02-14] MEDS: sacubitril/valsartan 24-26 mg Tablet 1 EACH PO (17:15)
[2024-02-14] MEDS: FUROsemide 40 mg Tablet PO (21:03)
[2024-02-14 21:15] LABS: Glucose Point of Care 113 mg/dL (70-110)
--- NOTE | 2024-02-14 23:25 | PC.NURSE ---
IV removal: Patient complained of IV site pain with flush, site was found to be leaking, IV was removed and patient refused the insertion of a new line. This nurse educated patient on need for IV access for medication administration, patient then refused IV medications. Dr. Strange gave telephone orders to give PO lasix in place of ordered IV lasix.
[2024-02-15] VITALS (40 sets, daily range): BP systolic 100–134; BP diastolic 41–74; PULSE 59–87; RESP 14–25; TEMP 36.3–37.2; O2SAT 89–96; BMI 39.4
[2024-02-15 07:53] LABS: Glucose Point of Care 129 mg/dL (70-110)
[2024-02-15] MEDS: amiodarone 200 mg Tablet 400 MG PO (08:10)
[2024-02-15] MEDS: sennosides-docusate Tablet 1 TAB PO (08:10)
[2024-02-15] MEDS: sacubitril/valsartan 24-26 mg Tablet 1 EACH PO (08:10)
[2024-02-15] MEDS: pantoprazole DR 40 mg Tablet PO (08:10)
[2024-02-15] MEDS: nystatin powder 15 gm Btl 1 APPLIC TOPICAL (08:10)
[2024-02-15] MEDS: apixaban 5 mg Tablet PO (08:15)
[2024-02-15] MEDS: budesonide 0.5 mg/2 mL Neb INHALATION (08:50)
[2024-02-15] MEDS: ipratropium-albuterol 3 mL Neb INHALATION ×2 (08:50→11:26)
[2024-02-15] MEDS: HYDROcodone-acetaminophen 5-325 mg Tablet 1 TAB PO (10:16)
[2024-02-15 11:31] LABS: Glucose Point of Care 120 mg/dL (70-110)
--- NOTE | 2024-02-15 12:20 | P.DS_ITS ---
Discharge Providers Date of Admission: 02/13/24 22:27 Date of Discharge: February 15, 2024 Attending Provider at Admission: Cristel Strange MD Attending Provider at Discharge: Saran Castillo Primary Care Provider: Joni Duque MD Diagnoses at Discharge Discharge Diagnosis (1) Congestive heart failure: Status: Acute Qualifiers: Heart failure chronicity: acute on chronic Heart failure type: systolic Qualified Code(s): I50.23 - Acute on chronic systolic (congestive) heart failure (2) Atrial fibrillation and flutter: Status: Acute (3) Nonischemic cardiomyopathy: Status: Acute Permanent problem details: Ejection fraction 20% (4) Benign essential hypertension with target blood pressure below 140/90: Status: Acute (5) AICD (automatic cardioverter/defibrillator) present: Status: Acute (6) COPD (chronic obstructive pulmonary disease): Status: Acute Qualifiers: COPD type: unspecified COPD Qualified Code(s): J44.9 - Chronic obstructive pulmonary disease, unspecified Reason for Visit Reason for Visit: afib high HR Hospital Course Hospital Course Pleasant 64-year-old lady with cardiomyopathy, ejection fraction 20%, AICD, was admitted with CHF exacerbation, A-fib with RVR, hypotension, presyncope/lightheadedness, received stress dose steroid on presentation, was started on treatment of CHF complicated with pulmonary edema on x-ray with diuretics, was treated with Cardizem IV infusion continued on anticoagulation for atrial fibrillation with RVR. Was evaluated by cardiology. She was transition to amiodarone. Converted to sinus rhythm. Was started on Entresto. Continued on diuretic. There was a concern of lack of adherence with medication therapy at home. We had a long discussion with her to make sure that she is taking all her medications which she states that she will make sure she is doing so. Discussed fluid restriction. Discussed amiodarone taper as per discussion with cardiology. Discussed monitoring blood pressures, heart rates. She understands the severity of her overall condition. Has an AICD. Knows to seek medical attention in case of worsening or new concerning symptoms. She is at risk of decompensation of congestive heart failure and other complications with severely depressed EF. She is feeling better, requested to be discharged home. Has ambulated in the hospital. However, as discussed with her, at risk of readmission. She is agreeable to home health for further condition and medication education and monitoring. Physical Exam Const: COMMON NORMALS: patient oriented x3 and alert GENERAL APPEARANCE: cooperative ORIENTATION/CONSCIOUSNESS: Yes awake HENMT: COMMON NORMALS: oropharynx normal Neck/C-Spine: COMMON NORMALS: no JVD Chest: OTHER: Left chest AICD Resp: COMMON NORMALS: normal respiratory effort and clear to auscultation bilaterally AUSCULTATION: clear to auscultation bilaterally Cardio: COMMON NORMALS: no JVD, regular rhythm, S1 normal heart sound present, S2 normal heart sound present and No murmurs present (Cardio) RHYTHM: regular rhythm HEART SOUNDS: S1 normal heart sound present and S2 normal heart sound present GI: COMMON NORMALS: Normal to inspection, nondistended, normoactive bowel sounds present, Soft to palpation and non-tender PALPATION: Yes Soft to palpation Extremity: COMMON NORMALS: no joint enlargement and no pedal edema NARRATIVE EXTREMITY EXAM: Right arm in a sling Neuro: COMMON NORMALS: patient oriented x3 and moves all extremities SENSORIUM/ORIENTATION: Yes alert Skin: COMMON NORMALS: no rashes or lesions noted GENERAL SKIN EXAM: no rashes or lesions noted Discharge Data Studies Completed and Pending Completed Studies During Hospitalization Category Date Time Status XR chest 1V portable [id number] Stat Exams 02/13/24 19:45 Completed Pending at discharge Category Date Time Status Basic Metabolic Panel AM LABS Lab 02/15/24 04:00 Ordered Complete Blood Count w/Auto AM LABS Lab 02/15/24 04:00 Ordered Radiology Impressions Chest X-Ray 02/13/24 19:45 IMPRESSION: Cardiomegaly with lung findings most suggestive of pulmonary edema. Laboratory Results WBC 7.67 10^3/uL (3.29-11.43) 02/14/24 02:06 RBC 4.09 10^6/uL (3.85-5.65) 02/14/24 02:06 Hgb 12.80 g/dL (11.27-16.99) 02/14/24 02:06 Hct 40.7 % (36-47) 02/14/24 02:06 MCV 99.5 fl (85-98) H 02/14/24 02:06 MCH 31.3 pg (27-33) 02/14/24 02:06 MCHC 31.4 g/dL (30-55) 02/14/24 02:06 RDW 13.6 % (12.1-15.1) 02/14/24 02:06 Plt Count 222 10^3/cmm (157-399) 02/14/24 02:06 MPV 11.0 fL (7.4-10.4) H 02/14/24 02:06 Neut % (Auto) 73.7 % 02/14/24 02:06 Lymph % (Auto) 18.5 % 02/14/24 02:06 [place] % (Auto) 7.2 % 02/14/24 02:06 Eos % (Auto) 0.0 % 02/14/24 02:06 Baso % (Auto) 0.3 % 02/14/24 02:06 Neut # (Auto) 5.66 10^3/uL (1.8-7.7) 02/14/24 02:06 Lymph # (Auto) 1.4 10^3/uL (0.8-4.8) 02/14/24 02:06 [place] # (Auto) 0.6 10^3/uL (0.2-0.9) 02/14/24 02:06 Eos # (Auto) 0.0 10^3/uL (0.0-0.8) 02/14/24 02:06 Baso # (Auto) 0.0 10^3/uL (0.0-0.1) 02/14/24 02:06 Nucleated RBC % (auto) 0 % 02/14/24 02:06 Nucleated RBCs # 0.0 /100WBC 02/14/24 02:06 PT 14.50 SECONDS (12.1-14.9) 02/13/24 20:18 INR 1.10 (0.8-1.2) 02/13/24 20:18 Sodium 139 mmol/L (136-145) 02/14/24 04:24 Potassium 4.4 mmol/L (3.5-5.1) 02/14/24 04:24 Chloride 100 mmol/L (98-107) 02/14/24 04:24 Carbon Dioxide 26 mmol/L (22-29) 02/14/24 04:24 Anion Gap 17.4 (5-19) 02/14/24 04:24 BUN 24 mg/dL (8-23) H 02/14/24 04:24 Creatinine 1.0 mg/dL (0.5-0.9) H 02/14/24 04:24 GFR Calculation 55.5 mL/min (90-130) L 02/14/24 04:24 Glucose 148 mg/dL (65-115) H 02/14/24 04:24 POC Glucose 120 mg/dL (70-110) H 02/15/24 11:29 Calculated Osmolality 295 mOsm/kg (285-295) 02/14/24 04:24 Calcium 9.1 mg/dL (8.5-10.5) 02/14/24 04:24 Magnesium 2.3 mg/dL (1.7-2.3) 02/14/24 04:24 Total Bilirubin 0.6 mg/dL (0.15-1.2) 02/13/24 20:18 AST 18 U/L (0-32) 02/13/24 20:18 ALT 17 U/L (0-33) 02/13/24 20:18 Alkaline Phosphatase 216 U/L (35-105) H 02/13/24 20:18 Troponin T Baseline 8 ng/L (0-10) 02/13/24 20:18 Troponin T 120 Minute 7.36 ng/L (0-10) 02/13/24 22:12 Delta Troponin T -0.64 ABS# (0-10) L 02/13/24 22:12 Troponin T Hi Sens 6Hr 8.00 ng/L (0-10) 02/14/24 02:06 Troponin T Hi Sens 6Hr Delta 0 ng/L (0-12) 02/14/24 02:06 C-Reactive Protein 77.0 mg/L (0.0-4.9) H 02/14/24 04:24 NT-Pro-B Natriuret Pep 7294 pg/mL (0-125) H 02/13/24 20:18 Total Protein 6.2 g/dL (6.6-8.7) L 02/13/24 20:18 Albumin 3.5 g/dL (3.5-5.2) 02/13/24 20:18 Globulin 2.7 g/dL (1.3-4.6) 02/13/24 20:18 Vitals Last Vital Signs Temp 99.0 F 02/15/24 10:00 Pulse 75 12/16/24 11:34 Resp 19 H 02/15/24 11:29 BP 108/41 02/15/24 10:00 Pulse Ox 95 02/15/24 11:29 O2 Del Method Nasal Cannula 02/15/24 11:29 O2 Flow Rate 2 02/15/24 11:29 Discharge Plan Discharge Patient Disposition: Home Health Service Condition: Stable Prescriptions: New sacubitril-valsartan [Entresto] 24-26 mg Tablet 1 tab PO BID Qty: 180 0RF Continued albuterol sulfate 90 mcg/actuation HFA aerosol inhaler 2 puff INHALATION Q6H PRN (Reason: shortness of breath) Qty: 8.5 3RF ipratropium-albuterol 0.5 mg-3 mg(2.5 mg base)/3 mL solution for nebulization 3 ml inhalation Q6H PRN (Reason: wheezing) Qty: 90 3RF hydrocodone-acetaminophen 5-325 mg tablet 1 tab PO Q6H PRN (Reason: pain) 5 Days Qty: 20 0RF atorvastatin 40 mg tablet 40 mg PO BEDTIME omeprazole 40 mg capsule,delayed release(DR/EC) 40 mg PO DAILY metolazone 2.5 mg tablet 2.5 mg PO DAILY PRN (Reason: weight gain) Qty: 30 0RF Rx Instructions: take for weight gain >3 pounds or shortness of breath or develop lower extremity edema tramadol 50 mg tablet 50 mg PO Q6H PRN (Reason: pain) Qty: 20 0RF Hold Instructions: Medication Not Effective potassium chloride 20 mEq tablet,ER particles/crystals 20 meq PO DAILY nystatin 100,000 unit/gram cream 1 applic TOPICAL TID PRN (Reason: Skin Irritation) metoprolol succinate 25 mg tablet extended release 24 hr 25 mg PO DAILY Eliquis 5 mg tablet 5 mg PO BID furosemide 40 mg tablet 40 mg PO DAILY Jardiance 10 mg tablet 10 mg PO DAILY Trelegy Ellipta 100-62.5-25 mcg blister with device 1 inh inhalation DAILY amiodarone [Pacerone] 200 mg Tablet 400 mg PO Q12H Qty: 90 0RF Rx Instructions: 2 tabs(400mg) twice daily for 7 days, 1 tab twice daily for 7 days, then 1 tab daily No Action (DME) shoulder immobilizer See Rx Instructions .Route .MEDSUPPLY Qty: 1 0RF Rx Instructions: As directed. Order 99 days Discharge Orders: Discharge Order (Routine); Ordered 02/15/24 Ordered By: Saran Castillo Referrals: Julia Carter NP [Nurse Practitioner] - 1 week Joni Duque MD [Primary Care Provider] - 4-7 days Dangelo Florez MD [Physician] - 1 month Discharge Diet: Cardiac and Diabetic Patient Instructions: Opioid Safety Activity Restrictions/Additional Instructions: Continue amiodarone 400 mg twice a day for 1 week, then decrease to 400 mg daily for another week, then continue at 200 mg daily from there. Continue Lasix, limit fluid intake to less than 1500 mL/day as discussed. Measure blood pressure 2-3 times daily, save values to bring to your appointment. Follow-up with cardiology in office as well as with your primary provider. Seek medical attention in case of any worsening or new concerning symptoms. Discharge Attestations Time Spent in Discharge Care*: greater than 30 min Status at Discharge: Cognitive status at discharge: cognitively intact , Behavioral status at discharge: cooperative , Quality Metrics Clinical Quality Measures [ No reported AMI, CVA or VTE this stay] Coding Level of Care Code 97774 Total time (in minutes) for Discharge: 55 Diagnoses Acute on chronic systolic congestive heart failure I50.23 Heart failure chronicity: acute on chronic Heart failure type: systolic Atrial fibrillation and flutter I48.91; I48.92 Nonischemic cardiomyopathy I42.8 Benign essential hypertension with target blood pressure below 140/90 I10 AICD (automatic cardioverter/defibrillator) present Z95.810 COPD (chronic obstructive pulmonary disease) J44.9 COPD type: unspecified COPD
--- NOTE | 2024-02-15 12:22 | PC.NURSE ---
pt refused to take her furosemide She stated she is being discharge today and will wait until she gets home.
[2024-02-15 12:47] LABS: Basophils % 0.3 %; Eosinophils % 0.1 %; Hematocrit 39.3 % (36-47); Lymphocytes # 1.3 10^3/uL (0.8-4.8); Lymphocytes % 19.1 %; Mean Corpuscular HGB Conc 31.8 g/dL (30-55); Mean Corpuscular Hemoglobin 31.4 pg (27-33); Mean Corpuscular Volume 98.7 fl (85-98); Mean Platelet Volume 10.3 fL (7.4-10.4); Monocytes # 0.6 10^3/uL (0.2-0.9); Monocytes % 9.1 %; Neutrophils # 4.78 10^3/uL (1.8-7.7); Neutrophils % 71.3 %; Nucleated Red Blood Cells % 0 %; Platelet Count 213 10^3/cmm (157-399); Red Blood Count 3.98 10^6/uL (3.85-5.65); White Blood Count 6.71 10^3/uL (3.29-11.43)
[2024-02-15 13:08] LABS: Blood Urea Nitrogen 18 mg/dL (8-23); Calcium 8.6 mg/dL (8.5-10.5); Carbon Dioxide 30 mmol/L (22-29); Chloride 98 mmol/L (98-107); Creatinine Clr Calc Pharmacy 77.5204; Glomerular Filtration Rate 62.6 mL/min (90-130); Glucose 101 mg/dL (65-115); Osmolality Calculated 292 mOsm/kg (285-295); Sodium 140 mmol/L (136-145)
[2024-02-15 13:11] LABS: Anion Gap 15.5 (5-19); Potassium 3.5 mmol/L (3.5-5.1)
--- NOTE | 2024-02-15 17:01 | P.PN_ITS ---
Subjective 2 Subjective: The patient is feeling okay. She seems to be in sinus rhythm. Currently she is on amiodarone 400 mg p.o. 3 times a day. The vitals are stable. Blood pressure seems to be holding up with the small dose of Entresto. Medications: Medication Review Details: Amiodarone 400 mg p.o. 3 times daily Entresto twice daily Eliquis 5 mg twice daily Vitals/I&O/Wt Last Vital Signs Temp 97.6 F 02/15/24 13:43 Pulse 83 02/15/24 13:43 Resp 24 H 02/15/24 12:00 BP 108/54 02/15/24 13:43 Pulse Ox 96 02/15/24 13:43 O2 Del Method Nasal Cannula 02/15/24 12:00 O2 Flow Rate 2 02/15/24 12:00 02/15/24 02/15/24 02/15/24 06:59 14:59 22:59 Intake Total 240 / 240 Balance 240 / 240 Weight last 48 hrs Weight 244 lb 1 oz Weight 246 lb Weight 246 lb 4.8 oz Weight 235 lb Physical Exam 2 Narrative: GENERAL: The patient is alert and oriented times three. Not in any acute distress. HEENT: No significant pallor, icterus or lymphadenopathy.Oral cavity: There are no mucous membrane lesions. NECK: Trachea appears to be central. No masses noted. No JVD or thyromegaly appreciated. RESPIRATORY: Chest is symmetrical. No intercostals muscle retraction or any accessory muscle activation. There is no chest wall tenderness. Breath sounds are heard bilaterally. No rales or rhonchi heard. No evidence of any consolidation. BREASTS: Deferred. HEART: The heart sounds are normal. No S3 or S4. Short systolic murmur in the lower sternal border. No diastolic murmurs. No pericardial rub ABDOMEN: No vessel pulsations or distention. No tenderness. No organomegaly appreciated. Bowel sounds are normally heard. : Deferred. RECTAL: Deferred. LYMPHATIC: No lymphadenopathy noted in the neck. EXTREMITIES: No edema or cyanosis. No clubbing. MUSCULOSKELETAL: No acute joint deformities or swelling SKIN: There are no significant rashes or ecchymosis NEUROPSYCHIATRIC: The patient is alert and oriented x3. Appears to be in a good mood. No tremors or rigidity noted. Data 02/15/24 11:42 02/15/24 11:30 Other Labs: Laboratory Last Values WBC 6.71 10^3/uL (3.29-11.43) 02/15/24 11:42 RBC 3.98 10^6/uL (3.85-5.65) 02/15/24 11:42 Hgb 12.50 g/dL (11.27-16.99) 02/15/24 11:42 Hct 39.3 % (36-47) 02/15/24 11:42 MCV 98.7 fl (85-98) H 02/15/24 11:42 MCH 31.4 pg (27-33) 02/15/24 11:42 MCHC 31.8 g/dL (30-55) 02/15/24 11:42 RDW 14.0 % (12.1-15.1) 02/15/24 11:42 Plt Count 213 10^3/cmm (157-399) 02/15/24 11:42 MPV 10.3 fL (7.4-10.4) 02/15/24 11:42 Neut % (Auto) 71.3 % 02/15/24 11:42 Lymph % (Auto) 19.1 % 02/15/24 11:42 [place] % (Auto) 9.1 % 02/15/24 11:42 Eos % (Auto) 0.1 % 02/15/24 11:42 Baso % (Auto) 0.3 % 02/15/24 11:42 Neut # (Auto) 4.78 10^3/uL (1.8-7.7) 02/15/24 11:42 Lymph # (Auto) 1.3 10^3/uL (0.8-4.8) 02/15/24 11:42 [place] # (Auto) 0.6 10^3/uL (0.2-0.9) 02/15/24 11:42 Eos # (Auto) 0.0 10^3/uL (0.0-0.8) 02/15/24 11:42 Baso # (Auto) 0.0 10^3/uL (0.0-0.1) 02/15/24 11:42 Nucleated RBC % (auto) 0 % 02/15/24 11:42 Nucleated RBCs # 0.0 /100WBC 02/15/24 11:42 PT 14.50 SECONDS (12.1-14.9) 02/13/24 20:18 INR 1.10 (0.8-1.2) 02/13/24 20:18 Sodium 140 mmol/L (136-145) 02/15/24 11:30 Potassium 3.5 mmol/L (3.5-5.1) 02/15/24 11:30 Chloride 98 mmol/L (98-107) 02/15/24 11:30 Carbon Dioxide 30 mmol/L (22-29) H 02/15/24 11:30 Anion Gap 15.5 (5-19) 02/15/24 11:30 BUN 18 mg/dL (8-23) 02/15/24 11:30 Creatinine 0.9 mg/dL (0.5-0.9) 02/15/24 11:30 GFR Calculation 62.6 mL/min (90-130) L 02/15/24 11:30 Glucose 101 mg/dL (65-115) 02/15/24 11:30 POC Glucose 120 mg/dL (70-110) H 02/15/24 11:29 Calculated Osmolality 292 mOsm/kg (285-295) 02/15/24 11:30 Calcium 8.6 mg/dL (8.5-10.5) 02/15/24 11:30 Magnesium 2.3 mg/dL (1.7-2.3) 02/14/24 04:24 Total Bilirubin 0.6 mg/dL (0.15-1.2) 02/13/24 20:18 AST 18 U/L (0-32) 02/13/24 20:18 ALT 17 U/L (0-33) 02/13/24 20:18 Alkaline Phosphatase 216 U/L (35-105) H 02/13/24 20:18 Troponin T Baseline 8 ng/L (0-10) 02/13/24 20:18 Troponin T 120 Minute 7.36 ng/L (0-10) 02/13/24 22:12 Delta Troponin T -0.64 ABS# (0-10) L 02/13/24 22:12 Troponin T Hi Sens 6Hr 8.00 ng/L (0-10) 02/14/24 02:06 Troponin T Hi Sens 6Hr Delta 0 ng/L (0-12) 02/14/24 02:06 C-Reactive Protein 77.0 mg/L (0.0-4.9) H 02/14/24 04:24 NT-Pro-B Natriuret Pep 7294 pg/mL (0-125) H 02/13/24 20:18 Total Protein 6.2 g/dL (6.6-8.7) L 02/13/24 20:18 Albumin 3.5 g/dL (3.5-5.2) 02/13/24 20:18 Globulin 2.7 g/dL (1.3-4.6) 02/13/24 20:18 A&P Assessment and plan (1) Congestive heart failure: The heart failure seems to be compensated. Patient may be switched to p.o. Lasix. Qualifiers: Heart failure chronicity: acute on chronic Heart failure type: systolic Qualified Code(s): I50.23 - Acute on chronic systolic (congestive) heart failure (2) Atrial fibrillation and flutter: The amiodarone may be cut back to 400 mg p.o. twice daily for 1 week followed by 400 mg daily for 1 week followed by 200 mg daily (3) Nonischemic cardiomyopathy: Patient had a cardiac catheterization in January 2022 and was found to have no significant obstructive coronary disease. Optimizing the medical treatment based on GDMT, would be the plan of action. (4) Benign essential hypertension with target blood pressure below 140/90: Patient may continue on the current medication for the time being (5) AICD (automatic cardioverter/defibrillator) present: The device was interrogated on the . Was found to have a normal sensing and pacing functions. No ICD discharges. Will continue on the current treatment. (6) COPD (chronic obstructive pulmonary disease): May continue on the current management. Qualifiers: COPD type: unspecified COPD Qualified Code(s): J44.9 - Chronic obstructive pulmonary disease, unspecified Plan If the patient continues remain stable, may be discharged home from a cardiac standpoint. Discussed with Dr. Castillo. Please make an appointment to be seen at [facility] by the nurse practitioner in 1 week Appoint with me in the office in 1 month Attestations 2 Medical Necessity Statement*: Possible discharge home today Coding Level of Care Code 97748 Diagnoses Acute on chronic systolic congestive heart failure I50.23 Heart failure chronicity: acute on chronic Heart failure type: systolic Atrial fibrillation and flutter I48.91; I48.92 Nonischemic cardiomyopathy I42.8 Benign essential hypertension with target blood pressure below 140/90 I10 AICD (automatic cardioverter/defibrillator) present Z95.810 COPD (chronic obstructive pulmonary disease) J44.9 COPD type: unspecified COPD
== END 2024-02-15 14:20 | disposition home health service (06) | DRG 308 ==
LOC: ER 22:13 → ICU 22:28 → CSU 02-15 10:09
PROVIDERS: Internal Medicine; Admitting Provider Internal Medicine; Emergency Provider Nurse Practitioner; PCP Family Medicine; Visit Provider Internal Medicine
DX: I48.20 Chronic atrial fibrillation, unspecified (principal); I50.23 Acute on chronic systolic (congestive) heart failure; J44.1 Chronic obstructive pulmonary disease with (acute) exacerbation; I95.9 Hypotension, unspecified; I48.92 Unspecified atrial flutter; I42.8 Other cardiomyopathies; I11.0 Hypertensive heart disease with heart failure; L30.4 Erythema intertrigo; E11.9 Type 2 diabetes mellitus without complications; Z91.148 Patient's other noncompliance with medication regimen for other reason; Z91.119 Patient's noncompliance with dietary regimen due to unspecified reason; R09.02 Hypoxemia; F17.210 Nicotine dependence, cigarettes, uncomplicated; K21.9 Gastro-esophageal reflux disease without esophagitis; J43.9 Emphysema, unspecified; Z95.810 Presence of automatic (implantable) cardiac defibrillator; Z79.01 Long term (current) use of anticoagulants; Z79.84 Long term (current) use of oral hypoglycemic drugs; Z99.81 Dependence on supplemental oxygen
CPT/HCPCS: 36415; 36416; 71045; 80048; 80053; 82962; 83735; 83880; 84484; 85025; 85610; 86140; 93005; 94640; 96365; 96367; 96372; 96374; 96375; 96376; 99285; J0282; J0283; J0360; J1650; J1720; J1815; J1940; J3490; J7030; J7626

== ENCOUNTER → 2024-02-18 14:06 | Outpatient (BNVA) | payer MEDICARE, MEDICAID, SELFPAY | PROVIDERS: PCP Family Medicine; Visit Provider Nurse Practitioner | DX: S50.11XA Contusion of right forearm, initial encounter (principal); S42.231A 3-part fracture of surgical neck of right humerus, initial encounter for closed fracture; X58.XXXA Exposure to other specified factors, initial encounter | CPT/HCPCS: 73030; 73090; 99024 ==

== ENCOUNTER → 2024-03-03 15:28 | Outpatient (BNVA) | payer MEDICARE, MEDICAID, SELFPAY | PROVIDERS: PCP Family Medicine; Visit Provider Nurse Practitioner Family | DX: I11.0 Hypertensive heart disease with heart failure (principal); I50.9 Heart failure, unspecified; E78.5 Hyperlipidemia, unspecified; F17.210 Nicotine dependence, cigarettes, uncomplicated | CPT/HCPCS: 99214 ==

== ENCOUNTER → 2024-03-14 14:44 | Outpatient (BNVA) | payer MEDICARE, MEDICAID, SELFPAY | PROVIDERS: PCP Family Medicine; Visit Provider Nurse Practitioner | DX: S42.231D 3-part fracture of surgical neck of right humerus, subsequent encounter for fracture with routine healing; S50.11XD Contusion of right forearm, subsequent encounter; X58.XXXA Exposure to other specified factors, initial encounter | CPT/HCPCS: 73030; 73090 ==

== ENCOUNTER → 2024-03-28 14:30 | Outpatient (BNVA) | payer MEDICARE, MEDICAID, SELFPAY | PROVIDERS: PCP Family Medicine; Visit Provider Nurse Practitioner | DX: S50.11XD Contusion of right forearm, subsequent encounter; S42.231D 3-part fracture of surgical neck of right humerus, subsequent encounter for fracture with routine healing; X58.XXXD Exposure to other specified factors, subsequent encounter | CPT/HCPCS: 73030; 99024 ==

== ENCOUNTER 2024-04-08 02:18 | Emergency (ER) | payer MEDICARE, MEDICAID, SELFPAY ==
[2024-04-08 02:27] VITALS: BP 84/60; PULSE 101; RESP 18; TEMP 37.7; O2SAT 91; BMI 41.9
[2024-04-08 02:30] VITALS: BP 82/63; PULSE 101; O2SAT 93
--- NOTE | 2024-04-08 02:31 | XRR_ITS ---
PROCEDURE INFORMATION: Exam: XR Chest Exam date and time: 04/08/2024 2:37 AM Age: 64 years old Clinical indication: Cough and fever and shortness of breath; Additional info: Cough congestion fever chills TECHNIQUE: Imaging protocol: Radiologic exam of the chest. Views: 1 view. COMPARISON: CR (CHEST, ) 02/13/2024 8:23 PM FINDINGS: Tubes, catheters and devices: Left chest wall ICD with the lead in the right ventricle. Lungs: Unremarkable. No consolidation. Pleural spaces: Unremarkable. No pleural effusion. No pneumothorax. Heart/Mediastinum: Unremarkable. Mild cardiomegaly. Bones/joints: Subacute/chronic right humeral neck fracture. XR/XR chest 1V portable [id number] IMPRESSION: No acute findings.
--- NOTE | 2024-04-08 02:31 | W.ED.FEVER ---
HPI - Fever General: Chief Complaint: Fever Stated Complaint: Fever, Chills, Weak Time Seen by Provider: 04/08/24 02:27 History of Present Illness: Patient brought in by the EMS with complaints of fever chills weakness. This been going on for several days. Patient does have COPD CHF A-fib nonischemic cardiomyopathy with a EF approximately 20%. Wears 2 L of oxygen at home at all times. Upon arrival pulse is 101 with temperature of 100 with an O2 sat of 91% on 2 L. Related Data Home Medications ?Medication ?Instructions ?Recorded ?Confirmed fluticasone fur. 100 mcg-umeclid 1 inh inhalation DAILY 10/25/22 03/28/24 62.5 mcg-vilant 25 mcg inhalat.powder (Trelegy Ellipta) atorvastatin 40 mg tablet 40 mg PO BEDTIME 12/29/23 03/28/24 omeprazole 40 mg capsule,delayed 40 mg PO DAILY 12/29/23 03/28/24 release empagliflozin 10 mg tablet 10 mg PO DAILY 02/14/24 03/28/24 (Jardiance) furosemide 40 mg tablet 40 mg PO DAILY 02/14/24 03/28/24 nystatin 100,000 unit/gram topical 1 applic topical TID PRN Skin 02/14/24 03/28/24 cream Irritation Previous Rx's ?Medication ?Instructions ?Recorded albuterol sulfate 90 mcg/actuation 2 puff inhalation Q6H PRN 03/21/22 aerosol inhaler shortness of breath #8.5 grams ipratropium 0.5 mg-albuterol 3 mg 3 ml inhalation Q6H PRN wheezing 07/22/22 (2.5 mg base)/3 mL nebulization #90 mL soln metolazone 2.5 mg tablet 2.5 mg PO DAILY PRN weight gain 12/30/23 #30 tabs shoulder immobilizer #1 ea 02/04/24 sacubitril 24 mg-valsartan 26 mg 1 tab PO BID #180 tabs 02/15/24 tablet (Entresto) potassium chloride 20 mEq 20 meq PO DAILY #30 tabs 02/22/24 tablet,extended release(part/cryst) amiodarone 200 mg tablet (Pacerone) 200 mg PO DAILY #90 tabs 03/03/24 apixaban 5 mg tablet (Eliquis) 5 mg PO BID #180 tabs 03/03/24 metoprolol succinate 25 mg 25 mg PO DAILY #90 tabs 03/03/24 tablet,extended release 24 hr hydrocodone 5 mg-acetaminophen 325 1 tab PO Q8H PRN pain 5 days #15 03/28/24 mg tablet tabs ciprofloxacin HCl 500 mg tablet 500 mg PO Q12H #20 tabs 04/08/24 Allergies Allergy/AdvReac Type Severity Reaction Status Date / Time dronedarone Allergy Severe rash, Verified 03/28/24 14:02 swelling doxacurium Allergy HIVES,RASH Verified 03/28/24 14:02 sulfamethoxazole (From Allergy ALGY-Rash Verified 03/28/24 14:02 Bactrim) trimethoprim (From Bactrim) Allergy ALGY-Rash Verified 03/28/24 14:02 Review of Systems General: Reports: 10 or more systems reviewed and unremarkable except in HPI and below PFSH ED PFSH: Medical History Sinus tachycardia Emphysema/COPD Fibromyalgia CHF (congestive heart failure) Atrial flutter History of coronary angiogram COPD (chronic obstructive pulmonary disease) GERD (gastroesophageal reflux disease) Tobacco dependency Osteoarthritis Rheumatoid arthritis Atrial fibrillation Hypertension Nonischemic cardiomyopathy Ejection fraction 20% Hypotension Edema leg Surgical History AICD (automatic cardioverter/defibrillator) present S/P tonsillectomy H/O: hysterectomy Family History Father Cancer Mother Cancer Sister Cancer Other CAD (coronary artery disease) Hyperlipidemia Hypertension Lung disease Denies family history of Psychiatric illness Social History Smoking and tobacco/nicotine status: current some day tobacco/nicotine user cigarettes Packs smoked per day: 2 Years cigarettes smoked: 50 [ Other cigarette details: Started at age 10 years] Alcohol intake: never Substance/Drug Use: never Physical Exam Const: COMMON NORMALS: no acute distress, average body habitus, patient oriented x3, no limitations, healthy appearing, alert and well nourished HENMT: COMMON NORMALS: normocephalic, atraumatic, hearing grossly normal bilaterally, external ears normal and Normal external nose present HEAD & SCALP: normocephalic and atraumatic NOSE: Normal external nose present EXTERNAL EAR: Yes external ears normal Neck/C-Spine: COMMON NORMALS: no JVD Chest: COMMONS NORMALS: normal inspection of the chest and normal palpation of entire chest wall Resp: COMMON NORMALS: normal respiratory effort, No retractions and No use of accessory muscles; negative for clear to auscultation bilaterally (Decreased breath sounds bilaterally occasional wheeze) AUSCULTATION: not clear to auscultation bilaterally (Decreased breath sounds bilaterally occasional wheeze) Cardio: COMMON NORMALS: no JVD, regular rate, regular rhythm, S1 normal heart sound present, S2 normal heart sound present, No gallops present (Cardio) and No clicks present (Cardio) RATE: regular rate RHYTHM: regular rhythm HEART SOUNDS: S1 normal heart sound present and S2 normal heart sound present GI: COMMON NORMALS: Normal to inspection, nondistended, normoactive bowel sounds present, Soft to palpation, non-tender, No hepatosplenomegaly present and no masses PALPATION: Yes Soft to palpation and Yes No hepatosplenomegaly present Neuro: COMMON NORMALS: patient oriented x3 SENSORIUM/ORIENTATION: Yes alert Course Vital Signs: Vital signs: Vital Signs Temperature 99.1 F 04/08/24 03:57 Pulse Rate 95 04/08/24 03:30 Respiratory Rate 21 H 04/08/24 03:30 Blood Pressure 103/63 04/08/24 03:30 Pulse Oximetry 93 04/08/24 03:30 Oxygen Delivery Me thod Nasal Cannula 04/08/24 02:27 Oxygen Flow Rate 2 04/08/24 02:27 MDM - Fever Medical Decision Making Blood work was obtained as well as chest x-ray, chest x-ray was negative, lab work showed white count of 11.4 lactic acid 2.0 magnesium 2.1, BNP 834, troponin 9, EKG sinus rhythm, urinalysis protein 2+ glucose 3+ blood 1+ nitrate positive leukocyte Estrace 2+ white blood cells greater than 100, patient was given Cipro here in ER. Patient be discharged with diagnosis of urinary tract infection and be given Cipro. Medical Records I reviewed the patient's medical records. Lab Data I reviewed the patient's lab results. 04/08/24 02:50 04/08/24 02:50 Radiology Impressions Chest X-Ray 04/08/24 02:31 IMPRESSION: No acute findings. Laboratory Results WBC 11.43 10^3/uL (3.29-11.43) 04/08/24 02:50 RBC 4.22 10^6/uL (3.85-5.65) 04/08/24 02:50 Hgb 13.40 g/dL (11.27-16.99) 04/08/24 02:50 Hct 40.3 % (36-47) 04/08/24 02:50 MCV 95.5 fl (85-98) 04/08/24 02:50 MCH 31.8 pg (27-33) 04/08/24 02:50 MCHC 33.3 g/dL (30-55) 04/08/24 02:50 RDW 13.3 % (12.1-15.1) 04/08/24 02:50 Plt Count 179 10^3/cmm (157-399) 04/08/24 02:50 MPV 9.4 fL (7.4-10.4) 04/08/24 02:50 Neut % (Auto) 71.2 % 04/08/24 02:50 Lymph % (Auto) 13.4 % 04/08/24 02:50 [place] % (Auto) 14.7 % 04/08/24 02:50 Eos % (Auto) 0.0 % 04/08/24 02:50 Baso % (Auto) 0.4 % 04/08/24 02:50 Neut # (Auto) 8.13 10^3/uL (1.8-7.7) H 04/08/24 02:50 Lymph # (Auto) 1.5 10^3/uL (0.8-4.8) 04/08/24 02:50 [place] # (Auto) 1.7 10^3/uL (0.2-0.9) H 04/08/24 02:50 Eos # (Auto) 0.0 10^3/uL (0.0-0.8) 04/08/24 02:50 Baso # (Auto) 0.1 10^3/uL (0.0-0.1) 04/08/24 02:50 Nucleated RBC % (auto) 0 % 04/08/24 02:50 Nucleated RBCs # 0.0 /100WBC 04/08/24 02:50 Sodium 132 mmol/L (136-145) L 04/08/24 02:50 Potassium 4.5 mmol/L (3.5-5.1) 04/08/24 02:50 Chloride 92 mmol/L (98-107) L 04/08/24 02:50 Carbon Dioxide 28 mmol/L (22-29) 04/08/24 02:50 Anion Gap 16.5 (5-19) 04/08/24 02:50 BUN 13 mg/dL (8-23) 04/08/24 02:50 Creatinine 1.0 mg/dL (0.5-0.9) H 04/08/24 02:50 GFR Calculation 55.5 mL/min (90-130) L 04/08/24 02:50 Glucose 105 mg/dL (65-115) 04/08/24 02:50 Calculated Osmolality 274 mOsm/kg (285-295) L 04/08/24 02:50 Lactic Acid 2.0 mmol/L (0.5-2.2) 04/08/24 02:50 Calcium 8.8 mg/dL (8.5-10.5) 04/08/24 02:50 Magnesium 2.1 mg/dL (1.7-2.3) 04/08/24 02:50 Total Bilirubin 1.0 mg/dL (0.15-1.2) 04/08/24 02:50 AST 30 U/L (0-32) 04/08/24 02:50 ALT 25 U/L (0-33) 04/08/24 02:50 Alkaline Phosphatase 246 U/L (35-105) H 04/08/24 02:50 Troponin T Baseline 9 ng/L (0-10) 04/08/24 02:50 NT-Pro-B Natriuret Pep 834 pg/mL (0-125) H 04/08/24 02:50 Total Protein 6.9 g/dL (6.6-8.7) 04/08/24 02:50 Albumin 3.5 g/dL (3.5-5.2) 04/08/24 02:50 Globulin 3.4 g/dL (1.3-4.6) 04/08/24 02:50 Procalcitonin 0.78 ng/mL (0-0.5) H 04/08/24 02:50 Urine Color Yellow (Yellow) 04/08/24 03:20 Urine Appearance Turbid (CLEAR) A 04/08/24 03:20 Urine pH 7.5 (5-7) 04/08/24 03:20 Ur Specific [place] 1.024 (1.005-1.030) 04/08/24 03:20 Urine Protein 2+ (Negative) A 04/08/24 03:20 Urine Glucose (UA) 3+ (Normal) H 04/08/24 03:20 Urine Ketones Negative (Negative) 04/08/24 03:20 Urine Blood 1+ (Negative) A 04/08/24 03:20 Urine Nitrate Positive (Negative) A 04/08/24 03:20 Urine Bilirubin Negative (Negative) 04/08/24 03:20 Urine Urobilinogen 1.0 mg/dL (Negative) 04/08/24 03:20 Ur Leukocyte Esterase 2+ (Negative) A 04/08/24 03:20 Urine RBC 6-10 /hpf (0-2) 04/08/24 03:20 Urine WBC >100 /hpf (0-5) H 04/08/24 03:20 Ur Squamous Epith Cells 21-50 /hpf (0-5) H 04/08/24 03:20 Amorphous Sediment Not Reportable 04/08/24 03:20 Urine Bacteria Exceeds /hpf (NONE) 04/08/24 03:20 Hyaline Casts 3.71 /lpf 04/08/24 03:20 Urine Mucus 2+ /hpf 04/08/24 03:20 Coronavirus (PCR) Negative (Negative) 04/08/24 02:20 Influenza A (PCR) Negative (Negative) 04/08/24 02:20 Influenza Type B (PCR) Negative (Negative) 04/08/24 02:20 RSV (PCR) Negative (Negative) 04/08/24 02:20 All radiology interpretation(s) finalized by discharge Discharge Plan Discharge Patient Disposition: Home Clinical Impression: Urinary tract infection Qualifiers: Urinary tract infection type: acute cystitis Hematuria presence: with hematuria Qualified Code(s): N30.01 - Acute cystitis with hematuria Condition: Stable Prescriptions: New ciprofloxacin HCl 500 mg tablet 500 mg PO Q12H Qty: 20 0RF No Action albuterol sulfate 90 mcg/actuation HFA aerosol inhaler 2 puff INHALATION Q6H PRN (Reason: shortness of breath) Qty: 8.5 3RF ipratropium-albuterol 0.5 mg-3 mg(2.5 mg base)/3 mL solution for nebulization 3 ml inhalation Q6H PRN (Reason: wheezing) Qty: 90 3RF (DME) shoulder immobilizer See Rx Instructions .Route .MEDSUPPLY Qty: 1 0RF Rx Instructions: As directed. Order 99 days amiodarone [Pacerone] 200 mg tablet 200 mg PO DAILY Qty: 90 3RF Eliquis 5 mg tablet 5 mg PO BID Qty: 180 1RF metoprolol succinate 25 mg tablet extended release 24 hr 25 mg PO DAILY Qty: 90 1RF hydrocodone-acetaminophen 5-325 mg tablet 1 tab PO Q8H PRN (Reason: pain) 5 Days Qty: 15 0RF potassium chloride 20 mEq tablet,ER particles/crystals 20 meq PO DAILY Qty: 30 0RF atorvastatin 40 mg tablet 40 mg PO BEDTIME omeprazole 40 mg capsule,delayed release(DR/EC) 40 mg PO DAILY metolazone 2.5 mg tablet 2.5 mg PO DAILY PRN (Reason: weight gain) Qty: 30 0RF Rx Instructions: take for weight gain >3 pounds or shortness of breath or develop lower extremity edema nystatin 100,000 unit/gram cream 1 applic TOPICAL TID PRN (Reason: Skin Irritation) furosemide 40 mg tablet 40 mg PO DAILY Jardiance 10 mg tablet 10 mg PO DAILY sacubitril-valsartan [Entresto] 24-26 mg Tablet 1 tab PO BID Qty: 180 0RF Trelegy Ellipta 100-62.5-25 mcg blister with device 1 inh inhalation DAILY Discharge Orders: Discharge ED (Routine); Ordered 04/08/24 Ordered By: Luke Flores Referrals: Joni Duque MD [Primary Care Provider] - 1 week Patient Instructions: Urinary Tract Infection in Women (DC) Activity Restrictions/Additional Instructions: Your evaluation ER that included chest x-ray, EKG, blood work and urinalysis showed you have a urinary tract infection. You were given Cipro in ER to start your antibiotic treatment. A prescription has been sent to your pharmacy for continual treatment. Please pick it up and take it as directed. Please follow-up with family practice within next 7 days for further evaluation and treatment. Print Language: Faroese Coding Level of Care Code ED Balloon Artist for Kishan Sandhu
[2024-04-08 02:57] LABS: Basophils # 0.1 10^3/uL (0.0-0.1); Basophils % 0.4 %; Hematocrit 40.3 % (36-47); Lymphocytes # 1.5 10^3/uL (0.8-4.8); Lymphocytes % 13.4 %; Mean Corpuscular HGB Conc 33.3 g/dL (30-55); Mean Corpuscular Hemoglobin 31.8 pg (27-33); Mean Corpuscular Volume 95.5 fl (85-98); Mean Platelet Volume 9.4 fL (7.4-10.4); Monocytes # 1.7 10^3/uL (0.2-0.9); Monocytes % 14.7 %; Neutrophils # 8.13 10^3/uL (1.8-7.7); Neutrophils % 71.2 %; Nucleated Red Blood Cells % 0 %; Platelet Count 179 10^3/cmm (157-399); Red Blood Count 4.22 10^6/uL (3.85-5.65); Red Cell Distribution Width 13.3 % (12.1-15.1); White Blood Count 11.43 10^3/uL (3.29-11.43)
[2024-04-08 03:00] VITALS: BP 94/72; PULSE 112; O2SAT 91
[2024-04-08 03:19] LABS: Covid PCR NEGATIVE (Negative); Influenza A NEGATIVE (Negative); Influenza B NEGATIVE (Negative); Respiratory Syncytial Virus Ce NEGATIVE (Negative)
[2024-04-08 03:22] LABS: Troponin(5th) Baseline 9 ng/L (0-10)
[2024-04-08] MEDS: acetaminophen 500 mg Tablet 1000 MG PO (03:25)
[2024-04-08 03:30] VITALS: BP 103/63; PULSE 95; RESP 21; O2SAT 93
[2024-04-08 03:32] LABS: Bilirubin Urine Negative (Negative); Blood Urine 1+ (Negative); Glucose Urine UA 3+ (Normal); Ketones Urine Negative (Negative); Leukocyte Esterase Urine 2+ (Negative); Nitrate Urine Positive (Negative); Protein Urine 2+ (Negative); Specific Gravity, Urine 1.024 (1.005-1.030); Urine Appearance Turbid (CLEAR); pH Urine 7.5 (5-7)
[2024-04-08 03:32] LABS: NT Pro B Type Natriuretic Pept 834 pg/mL (0-125); Procalcitonin 0.78 ng/mL (0-0.5)
[2024-04-08 03:37] LABS: Add Urine Microscopic? YES; Bacteria Urine EXCEEDS /hpf; Hyaline Casts Urine 3.71 /lpf; Squamous Epithelial Cell Urine 21-50 /hpf (0-5); WBC Urine >100 /hpf (0-5)
[2024-04-08 03:43] LABS: Alanine Aminotransferase 25 U/L (0-33); Albumin Level 3.5 g/dL (3.5-5.2); Alkaline Phosphatase 246 U/L (35-105); Anion Gap 16.5 (5-19); Aspartate Amino Transferase 30 U/L (0-32); Blood Urea Nitrogen 13 mg/dL (8-23); Calcium 8.8 mg/dL (8.5-10.5); Carbon Dioxide 28 mmol/L (22-29); Chloride 92 mmol/L (98-107); Creatinine Clr Calc Pharmacy 72.2945; Globulin 3.4 g/dL (1.3-4.6); Glomerular Filtration Rate 55.5 mL/min (90-130); Glucose 105 mg/dL (65-115); Magnesium 2.1 mg/dL (1.7-2.3); Osmolality Calculated 274 mOsm/kg (285-295); Potassium 4.5 mmol/L (3.5-5.1); Sodium 132 mmol/L (136-145); Total Protein 6.9 g/dL (6.6-8.7)
--- NOTE | 2024-04-08 03:53 | ECG_ITS ---
[facility] 2024-04[facility]08 Pat Name: Shana Roy Department: Room: Gender: Female Higher Education Administrator: : 1960 Requested By: Luke Flores Order Number: [id number] Reading MD: KANDACE ALSTON Measurements Intervals [place] Rate: 91 P: 28 [place]: 175 QRS: 32 QRSD: 124 T: 29 QT: 376 QTc: 464 Interpretive Statements SINUS RHYTHM MODERATE INTRAVENTRICULAR CONDUCTION DELAY [105+ ms QRS DURATION, 80+ ms Q/S IN V1/V2, NO Q AND 60+ ms R IN I/aVL/V5/V6] NONSPECIFIC T-WAVE ABNORMALITY Compared to ECG 02/14/2024 02:25:44 T-wave abnormality now present Atrial flutter no longer present Electronically Signed On 04-10-2024 21:05:31 SHANKER OUT by KANDACE ALSTON [id number]
[2024-04-08 03:54] LABS: UA Slide Review UA Slide Review Perf; Urine Color Yellow (Yellow)
[2024-04-08 03:55] LABS: Add Urine Culture? No; Mucus Urine 2+ /hpf
[2024-04-08 03:57] VITALS: TEMP 37.3
[2024-04-08] MEDS: ciprofloxacin 500 mg Tablet PO (04:25)
[2024-04-08 04:26] VITALS: BP 103/63; PULSE 90; O2SAT 95
== END 2024-04-08 04:29 | disposition home or self-care (01) ==
PROVIDERS: Emergency Provider Emergency Medicine; PCP Family Medicine
DX: N30.01 Acute cystitis with hematuria (principal); Z11.52 Encounter for screening for COVID-19; Z79.01 Long term (current) use of anticoagulants; F17.210 Nicotine dependence, cigarettes, uncomplicated; I11.0 Hypertensive heart disease with heart failure; I50.9 Heart failure, unspecified
CPT/HCPCS: 71045; 80053; 81001; 83605; 83735; 83880; 84145; 84484; 85025; 87040; 87637; 93005; 99285

== ENCOUNTER → 2024-04-13 16:10 | Outpatient (BNVA) | payer MEDICARE, MEDICAID, SELFPAY | PROVIDERS: PCP Family Medicine; Visit Provider Internal Medicine Cardiovascular Disease | DX: R07.9 Chest pain, unspecified (principal); I50.23 Acute on chronic systolic (congestive) heart failure; I48.0 Paroxysmal atrial fibrillation; I42.8 Other cardiomyopathies; G47.33 Obstructive sleep apnea (adult) (pediatric); Z95.810 Presence of automatic (implantable) cardiac defibrillator | CPT/HCPCS: 93005; 99214 ==

== ENCOUNTER 2024-04-22 12:55 | Outpatient (CLI) | payer MEDICARE, MEDICAID, SELFPAY ==
--- NOTE | 2024-04-22 13:12 | CT_ITS ---
WS: [id number] LDCT LUNG CANCER SCREENING TECHNIQUE: Noncontrast CT of the chest with coronal and sagittal reformatted images. CLINICAL INFORMATION: NICOTINE DEPENDENCE COMPARISON: 01/16/2023 DLP: 143.80 mGy.cm DIvol: Mean CTDIvol: 3.60 (mGy) All CT scans at [facility] use at least one of these dose optimization techniques: automated exposure control; mA and/or kV adjustment per patient size (includes targeted exams where dose is matched to clinical indication); or iterative reconstruction. FINDINGS: Advanced chronic centrilobular emphysematous changes worse in the upper lobes similar to previous. A few tiny subcentimeter noncalcified nodules along the RIGHT fissures appear stable. A few tiny scattered subcentimeter micronodules. No new suspicious pulmonary parenchymal abnormalities. No new suspicious pulmonary opacities. Fibrosis in the lung apices. Normal caliber thoracic aorta. Mild aortic calcification. Mild coronary calcification. Prominent anterior mediastinal and AP window lymph nodes stable and most likely reactive and unchanged since 2020. No axillary lymphadenopathy. Adrenal glands are normal. Fatty atrophy of the pancreas. AICD. Sternotomy. CT/CT lung screening [id number] IMPRESSION: LUNG-RADS: 2-Benign Appearance or Behavior FOLLOW UP: 12 Month: Continue annual screening with LDCT
--- NOTE | 2024-04-22 13:14 | XR_ITS ---
WS: [id number] SCREENING DEXA SCAN [employer] CLINICAL INFORMATION: POSTMENOPAUSAL COMPARISON: 2019 FINDINGS: The L1-L4 bone mineral density measures 0.788 g/cm2. This corresponds to a T score score of -3.3 and Z score of -2.8. Left femoral neck bone mineral density measures 0.916 g/cm2. This corresponds to a T score of -0.7 and Z score of -0.3. Right femoral neck bone mineral density measures 0.891 g/cm2. This corresponds to a T score -0.9of and Z score of -0.5. Mean femoral neck bone mineral density measures 0.903 g/cm2. This corresponds to a T score of -0.8 and Z score of -0.4. XR/XR DEXA axial skeleton* [id number] IMPRESSION: Osteoporosis lumbar spine. Normal bone mineralization femoral necks. Patient's FRAX calculated 10 year probability for major osteoporotic fracture i s 26.9% and osteoporotic hip fracture is 4.0%. Bone mineral density lumbar spine decreased -10.1% Bone mineral density femoral necks decreased -3.6%
== END 2024-04-22 12:56 | disposition home or self-care (01) ==
LOC: RAD 12:57
PROVIDERS: PCP Family Medicine; Visit Provider Family Medicine
DX: Z12.2 Encounter for screening for malignant neoplasm of respiratory organs (principal); F17.210 Nicotine dependence, cigarettes, uncomplicated; Z78.0 Asymptomatic menopausal state; J43.2 Centrilobular emphysema; J84.10 Pulmonary fibrosis, unspecified; I70.0 Atherosclerosis of aorta; I25.10 Atherosclerotic heart disease of native coronary artery without angina pectoris; R59.0 Localized enlarged lymph nodes; K86.89 Other specified diseases of pancreas; Z96.89 Presence of other specified functional implants; Z98.890 Other specified postprocedural states; M81.0 Age-related osteoporosis without current pathological fracture
CPT/HCPCS: 71271; 77080

== ENCOUNTER → 2024-05-23 13:53 | Outpatient (BNVA) | payer MEDICARE, MEDICAID, SELFPAY | PROVIDERS: PCP Family Medicine; Visit Provider Nurse Practitioner | DX: M19.111 Post-traumatic osteoarthritis, right shoulder (principal); S42.231D 3-part fracture of surgical neck of right humerus, subsequent encounter for fracture with routine healing; X58.XXXD Exposure to other specified factors, subsequent encounter | CPT/HCPCS: 20610; 73030; 99214; J1100; J2795; J3301; J9999 ==

== ENCOUNTER 2024-08-15 20:10 | Emergency (ER) | payer MEDICARE, MEDICAID, SELFPAY ==
--- NOTE | 2024-08-15 20:13 | XRR_ITS ---
PROCEDURE INFORMATION: Exam: XR Chest Exam date and time: 08/15/2024 8:16 PM Age: 64 years old Clinical indication: Other: Palpitations; Prior surgery; Surgery date: 6+ months; Surgery type: Pacemaker TECHNIQUE: Imaging protocol: Radiologic exam of the chest. Views: 1 view. COMPARISON: 1. CT lung screening [id number] 04/22/2024 1:10 PM 2. CR XR chest 1V portable [id number] 04/08/2024 2:37 AM FINDINGS: Tubes, catheters and devices: There is transvenous AICD in place with leads in appropriate position. Lungs: Visualized portions of the lungs are clear. There is no pulmonary venous congestion. Pleural spaces: Unremarkable. No pleural effusion. No pneumothorax. Heart/Mediastinum: The heart is mildly enlarged. Bones/joints: Unremarkable. XR/XR chest 1V portable [id number] IMPRESSION: No acute infiltrate. No significant change from 04/08/2024.
--- NOTE | 2024-08-15 20:14 | ECG_ITS ---
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 Measurements Intervals [place] Rate: 80 P: -15 MA: 164 QRS: 52 QRSD: 116 T: 94 QT: 398 QTc: 460 Interpretive Statements SINUS RHYTHM MODERATE INTRAVENTRICULAR CONDUCTION DELAY [110+ ms QRS DURATION] Compared to ECG 04/08/2024 03:53:02 T-wave abnormality no longer present Electronically Signed On 08-15-2024 21:49:01 CDT by Dangelo Florez M.D. [email or web address] [id number]
[2024-08-15 20:22] VITALS: BP 80/59; PULSE 86; RESP 18; TEMP 36.8; O2SAT 94; BMI 37.1
== END 2024-08-15 23:00 | disposition left against medical advice (07) ==
LOC: ER 20:16
PROVIDERS: Emergency Provider Family Medicine; PCP Family Medicine
DX: I45.89 Other specified conduction disorders (principal); R00.2 Palpitations; Z95.0 Presence of cardiac pacemaker
CPT/HCPCS: 71045; 93005

== ENCOUNTER 2024-08-23 14:18 | Emergency (ER) | payer MEDICARE, MEDICAID, SELFPAY ==
--- OUTSIDE RECORDS SUMMARY | 2023-09-14 08:00 | XMS_ITS ---
Author Organization [facility] Address [address] [place] [phone] Care Team Providers Care Summer Nanny Name Role Phone Kamron CAROLINA, Jordan Unavailable [phone] Neto CAROLINA, Joni Unavailable Unavailable Corina Sagastume Unavailable [phone] Allergies Allergen (clinical drug ingredient) Drug/Non Drug Allergy documented on EMR Reaction Allergy Type Onset Date Status sulfamethoxazole / trimethoprim Bactrim Unknown Drug Allergy Active doxycycline doxycycline Unknown Drug Allergy Act jing HYDROcodone Unknown Drug Allergy Activ e REASON FOR VISIT New patient evaluation, FALL, Imaging retrieved from [facility] 09/10/23 Medications Medication SIG (Take, Route, Fr equency, Duration) Notes Start Date End Date Status traMADol 50 mg 1 tab(s) orally 2 times a day Active Encounters Encounter Location Date Provider Diagnosis [facility], [address] [phone] 09/14/2023 Corina Riggins 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 2022 opioid (OUD) risk tool score = . This places the patient in the low/high risk category. Plan urine toxicology screen today in anticipation of possibly starting opioid therapy at future visit as well as to assess for any prescribed, unprescribed, and / or illicit controlled substance(s). Plan Of Treatment Treatment Notes Assessment Notes Other usp (current) drug therapy Patient was given a copy of the Treatment Agreement, signed by patient on . 2022 opioid (OUD) risk tool score = . This places the patient in the low/high risk category. Plan urine toxicology screen today in anticipation of possibly starting opioid therapy at future visit as well as to assess for any prescribed, unprescribed, and / or illicit controlled substance(s). Progress Notes * Shana NIXON SDOB:1960 (64 yo F)Acc No.[id number]:09/14/2023 Patient: Shana BOYLE Provider: ANTONIA Soto :1960 A ge:63 Y S ex:Female Date:09/14/2023 Address:[address] [place] [address] Subjective: * Chief Complaints: * 1 . New patient evaluation. 2. FALL. 3. Imaging retrieved from [facility] 09/10/23. * HPI: C ervical Spine: 63 year old female presents with c/o pain f or * i n the neck. T horacic Spine: c/o pain f or * i n the mid back. L umbar Spine: c/o pain f or * i n the lower back. S acro-Iliac / Coccyx: c/o pain f or * * . P otential Work or Litigation Related Injury: No: p atient stated pain is not due to a work or litigation related injury. P hysician's referral: Physician's referral received: f sylvia Duque for postherpetic neuralgia; see scanned documents. P hysician/Clinic notes: Notes received from: S [facility]; see scanned documents. P revious Imaging/Studies: CT o f the abdomen / pelvis on 11/21/22; of the head and C-spine on 10/25/22. X-rays o f the C-spine, T-spine and L-spine on 03/26/20; see scanned documents. P revious Therapy: Previous therapy: p hysical therapy for * with * benefit for weeks; home exercises for * with * benefit for weeks; chiropractic manipulation for * with * benefit for weeks; ice/heat therapy with * benefit for weeks; muscle relaxants for * with * benefit for weeks; anti-inflammatories for * with * benefit for weeks. Medication history: L idoderm 5% patch ; Dannemora 5/325 ; Neurontin 400 mg ; diclofenac 1% gel ; Lyrica 100 mg; tramadol 50 mg. M edications: tramadol (Ultram) * . * ROS: C onstitutional: : N egative. O pthalmology: : N egative. H ENT: : N egative. C ardiovascular: : N egative. R espiratory: Sleep Apnea Screening: p atient described sleep as * with complaint of . E pworth Sleepiness Scale: * . G astrointestinal: : N egative. I ntegumentary/ Dermatology: : N egative. N eurological: Claustrophobic: * . P sychiatric: : N egative. E ndocrine: : N egative. H ematology/Lymphatic: : N egative. * Medical History: P ost herpatic neuralgia, Shingles, TIA, Chronic sore throat, COPD, RA, Fibromyalgia. * Surgical History: H ysterectomy , Appendectomy , Trichomonas , Tonsillectomy . * Medications: T aking traMADol 50 mg tablet 1 tab(s) orally 2 times a day * Allergies: d oxycycline, Bactrim, HYDROcodone. Objective: * Vitals: Therapeutic Interventions: * Therapeutic Interventions: 1 . C ounseling Conditions of treatment : patient counseled to bring all medications prescribed by CLINICAL PSYCHOLOGIST to every visit. Patient was advised that use of illicit drugs (including marijuana, other street drugs, prescription drugs not disclosed, and prescription drugs belonging to other persons) will result in dissolution of treatment. Patient also advised that misuse of prescription drugs (including sharing prescribed medications with other persons and inappropriate self-dosing) will result in dissolution of treatment. Patient verbalized understanding and intent to comply with treatment requirements 2 . D rug Screening Urine Sample : collected (results pending) 3 . I llicit drugs Social history : information is accurate regarding illicit drugs and dates of last use; if applicable. Patient confirmed that current listed medications are accurate and include all medications (prescribed and OTC) used within the past 2 months Assessment: * Assessment: 1. 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 * * ASA Status Classification: s core: * ?? need sedation??. 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 for * with * benefit for weeks; home exercises for * with * benefit for weeks; chiropractic manipulation for * with * benefit for weeks; ice/heat therapy with * benefit for weeks; muscle relaxants for * with * benefit for weeks; anti-inflammatories for * with * benefit for weeks Medication history: Lidoderm 5% patch ; Dannemora 5/325 ; Neurontin 400 mg ; diclofenac 1% gel ; Lyrica 100 mg; tramadol 50 mg Potential Work or Litigation Related Injury No: patient stated pain is not d ue to a work or litigation related injury Previous Imaging/Studies CT of the abdomen / pelvis on 11/21/22; of the head and C-spine on 10/25/22 X-rays of the C-spine, T-sp ine and L-spine on 03/26/20; see scanned documents Physician's referral Physician's referral receiv ed: from Dr. Joni Duque for postherpetic neuralgia; see scanned documents Physician/Clinic notes [facility] see [facility]
[2024-08-23] VITALS (7 sets, daily range): BP systolic 99–131; BP diastolic 60–91; PULSE 73–94; RESP 16–21; TEMP 36.6–36.9; O2SAT 91–98
--- NOTE | 2024-08-23 14:20 | ECG_ITS ---
[facility] Date: 2024-08[facility]23 Pat Name: Shana Roy Department: Room: Gender: Female Facility Specialist: : 1960 Requested By: Brock Mckeon Order Number: [id number] Patty MD: Ayan Angulo M.D. Measurements Intervals [place] Rate: 92 P: 5 ID: [id number] QRS: 51 QRSD: 114 T: 109 QT: 365 QTc: 452 Interpretive Statements SINUS RHYTHM MODERATE INTRAVENTRICULAR CONDUCTION DELAY [110+ ms QRS DURATION] ST DEVIATION AND MODERATE T-WAVE ABNORMALITY, CONSIDER ANTEROLATERAL ISCHEMIA [-0.1+ mV T-WAVE IN V3-V6] Compared to ECG 08/15/2024 20:27:58 T-wave abnormality now present Possible ischemia now present Electronically Signed On 08-23-2024 17:09:47 CDT by Ayan Angulo M.D. [id number]
--- NOTE | 2024-08-23 15:04 | ED_ITS ---
Documented by User: Brock Gutiérrez, 08/29/24 15:14 HPI - Chest Pain 2 General: Chief Complaint: Chest Pain Stated Complaint: dr vides, chest pain, L arm pain, SOB Time Seen by Provider: 08/23/24 15:03 History of Present Illness: 64-year-old female presents to the emerg ency room with complaints of intermittent chest pain for last 2 months worse in the last 2 weeks. Patient has a history of A-fib as well as a severe cardiomyopathy with an EF of 20%. Patient reports vague chest pain on the left side radiating to her back she also has some swelling in her right leg. No orthopnea however. Associated symptoms: Deny abdominal pain, dyspnea or fever(s) Related Data Home Medications ?Medication ?Instructions ?Recorded ?Confirmed fluticasone fur. 100 mcg-umeclid 1 inh inhalation SHEA Y 10/25/22 05/23/24 62.5 mcg-vilant 25 mcg inhalat.powder (Trelegy Ellipta) atorvastatin 40 mg tablet 40 mg PO BEDTIME 12/29/23 furosemide 40 mg tablet 40 mg PO DAILY 02/14/2405/01 nystatin 100,000 unit/gram topical 1 applic topical TI D PRN Skin 02/14/24 05/23/24 cream Irritation Previous Rx's ?Medication ?Instructions ?Recorded albuterol sulfate 90 mcg/actuation 2 puff inhalation Q 6H PRN 03/21/22 aerosol inhaler shortness of breath #8.5 gra ms ipratropium 0.5 mg-albuterol 3 mg 3 ml inhalation Q6H PRN wheezing 07/22/22 (2.5 mg base)/3 mL nebulization #90 mL soln metolazone 2.5 mg tablet 2.5 mg PO DAILY PRN weight g ain 12/30/23 #30 tabs shoulder immobilizer #1 ea 02/04/24 amiodarone 200 mg tablet (Pacerone) 200 mg PO DAILY #9 0 tabs 03/03/24 apixaban 5 mg tablet (Eliquis) 5 mg PO BID #180 tabs 0 03/03/24 metoprolol succinate 25 mg 25 mg PO DAILY #90 tabs 04/26 tablet,extended release 24 hr ciprofloxacin HCl 500 mg tablet 500 mg PO Q12H #20 tab s 02/07/25 empagliflozin 10 mg tablet 10 mg PO DAILY #90 tabs 02/23 (Jardiance) hydrocodone 5 mg-acetaminophen 325 1 tab PO Q12H PRN p ain 7 days #14 05/23/24 mg tablet tabs potassium chloride 20 mEq 20 meq PO DAILY #90 tabs tablet,extended release(part/cryst) sacubitril 24 mg-valsartan 26 mg 1 tab PO BID #180 tab s 06/27/24 tablet (Entresto) Allergies Allergy/AdvReac Type Severity Reaction Status Date / Time dronedarone Allergy Severe rash, Verified 05/23/24 14:14 swelling doxacurium Allergy HIVES,RASH Verified 05/23/24 14:14 sulfamethoxazole (From Allergy ALGY-Rash Verified 05/23/24 14:14 Bactrim) trimethoprim (From Bactrim) Allergy ALGY-Rash Verified 05/23/24 14:14 Review of Systems 2 Const: Denies: fever(s) or chills Card: Denies: chest pain Resp: Denies: dyspnea GI: Denies: abdominal pain : Denies: dysuria, urinary frequency or urinary urgency Musc: Denies: neck pain or back pain Skin/Breast: Denies: rash PFSH ED 2 PFSH: Medical History Post-traumatic osteoarthritis, right shoulder Sinus tachycardia Emphysema/COPD Fibromyalgia CHF (congestive heart failure) Atrial flutter History of coronary angiogram COPD (chronic obstructive pulmonary disease) GERD (gastroesophageal reflux disease) Tobacco dependency Osteoarthritis Rheumatoid arthritis Atrial fibrillation Hypertension Nonischemic cardiomyopathy Ejection fraction 20% Hypotension Edema leg Surgical History AICD (automatic cardioverter/defibrillator) present S/P tonsillectomy H/O: hysterectomy Family History Father Cancer Mother Cancer Sister Cancer Other CAD (coronary artery disease) Hyperlipidemia Hypertension Lung disease Denies family history of Psychiatric illness Social History Smoking and tobacco/nicotine status: current some day tobacco/nicotine user (3- 4 cigarettes a day) cigarettes Packs smoked per day: 2 Years cigarettes smoked: 50 [ Other cigarette details: Started at age 10 years] Alcohol intake: never Substance/Drug Use: never Physical Exam 2 Const: COMMON NORMALS: no acute distress GENERAL APPEARANCE: cooperative and comfortable ORIENTATION/CONSCIOUSNESS: Yes awake, Yes oriented to person, Yes oriented to place and Yes oriented to time HENMT: COMMON NORMALS: normocephalic, atraumatic and hearing grossly normal bilaterally HEAD & SCALP: normocephalic and atraumatic Resp: COMMON NORMALS: normal respiratory effort, No retractions, No use of accessory muscles and clear to auscultation bilaterally AUSCULTATION: clear to auscultation bilaterally Cardio: COMMON NORMALS: regular rate, regular rhythm and No murmurs present (Cardio) RATE: regular rate RHYTHM: regular rhythm GI: COMMON NORMALS: Soft to palpation and No hepatosplenomegaly present A USCULTATION: Yes normoactive bowel sounds PALPATION: Yes Soft to palpation, No Tenderness to palpation present (GI), No Guarding due to palpation present (GI) and Yes No hepatosplenomegaly present Extremity: COMMON NORMALS: normal to inspection, capillary refill normal, no clubbing, cyanosis or edema, no calf tenderness and no pedal edema Neuro: SENSORIUM/ORIENTATION: Yes oriented to person, Yes oriented to place and Yes oriented to time Skin: COMMON NORMALS: no rashes or lesions noted GENERAL SKIN EXAM: no rashes or lesions noted Course 2 Vital Signs: Vital signs: Vital Signs Temperature 98.4 F 08/23/24 14:57 Pulse Rate 83 08/23/24 20:11 Respiratory Rate 20 H 08/23/24 20:11 Blood Pressure 128/91 08/23/24 20:11 Pulse Oximetry 97 08/23/24 20:11 Oxygen Delivery Me thod Room Air 08/23/24 18:01 MDM - Chest Pain Medical Decision Making Care signed out to Dr. Alarcon at change of shift. See final notes for diagnosis and disposition. In summary, patient is a 64-year-old female who has been suffering a burning- like sensation which she describes as constant, 3 of 10, radiating from front to back and encompassing the left side of the chest. Nothing seems to make it better or worse. EKG and lab work are reassuring with no evidence of ACS. Troponin x 2 are negative. BNP is only slightly elevated. I do not suspect ACS, PE, pneumonia, pneumothorax, esophageal perforation, or other emergency requiring further workup or hospitalization. We discussed that that she has not been taking her Fosamax exactly as prescribed, sometimes taking other medications along with it and not taking with a full glass of water and not remaining upright for the following 30 minutes. We discussed that inappropriate technique taking the medicine can cause esophagitis and gastritis which could cause wrist pain. There is no clinical evidence of esophageal perforation or gastric perforation, thus she will be discharged home with close follow-up to primary care to see whether they would like to either discontinue or pause her Fosamax. We discussed the proper way to take it. She shows good understanding and agrees to the plan Lab Data 08/23/24 17:01 08/23/24 17:01 Radiology Impressions Chest X-Ray 08/23/24 15:04 IMPRESSION: No acute findings. Laboratory Results WBC 8.65 10^3/uL (3.29-11.43) 08/23/24 17:01 RBC 4.68 10^6/uL (3.85-5.65) 08/23/24 17:01 Hgb 15.00 g/dL (11.27-16.99) 08/23/24 17:01 Hct 45.9 % (36-47) 08/23/24 17:01 MCV 98.1 fl (85-98) H 08/23/24 17:01 MCH 32.1 pg (27-33) 08/23/24 17:01 MCHC 32.7 g/dL (30-55) 08/23/24 17:01 RDW 12.9 % (12.1-15.1) 08/23/24 17:01 Plt Count 224 10^3/cmm (157-399) 08/23/24 17:01 MPV 9.8 fL (7.4-10.4) 08/23/24 17:01 Neut % (Auto) 62.5 % 08/23/24 17:01 Lymph % (Auto) 24.9 % 08/23/24 17:01 Brewster % (Auto) 10.8 % 08/23/24 17:01 Eos % (Auto) 0.9 % 08/23/24 17:01 Baso % (Auto) 0.6 % 08/23/24 17:01 Neut # (Auto) 5.41 10^3/uL (1.8-7.7) 08/23/24 17:01 Lymph # (Auto) 2.2 10^3/uL (0.8-4.8) 08/23/24 17:01 Brewster # (Auto) 0.9 10^3/uL (0.2-0.9) 08/23/24 17:01 Eos # (Auto) 0.1 10^3/uL (0.0-0.8) 08/23/24 17:01 Baso # (Auto) 0.1 10^3/uL (0.0-0.1) 08/23/24 17:01 Nucleated RBC % (auto) 0 % 08/23/24 17:01 Nucleated RBCs # 0.0 /100WBC 08/23/24 17:01 Sodium 141 mmol/L (136-145) 08/23/24 17:01 Potassium 4.1 mmol/L (3.5-5.1) 08/23/24 17:01 Chloride 99 mmol/L (98-107) 08/23/24 17:01 Carbon Dioxide 28 mmol/L (22-29) 08/23/24 17:01 Anion Gap 18.1 (5-19) 08/23/24 17:01 BUN 12 mg/dL (8-23) 08/23/24 17:01 Creatinine 1.0 mg/dL (0.5-0.9) H 08/23/24 17:01 GFR Calculation 55.5 mL/min (90-130) L 08/23/24 17:01 Glucose 97 mg/dL (65-115) 08/23/24 17:01 Calculated Osmolality 292 mOsm/kg (285-295) 08/23/24 17:01 Calcium 9.3 mg/dL (8.5-10.5) 08/23/24 17:01 Total Bilirubin 0.4 mg/dL (0.15-1.2) 08/23/24 17:01 AST 18 U/L (0-32) 08/23/24 17:01 ALT 15 U/L (0-33) 08/23/24 17:01 Alkaline Phosphatase 188 U/L (35-105) H 08/23/24 17:01 Troponin T Baseline 8 ng/L (0-10) 08/23/24 17:01 Troponin T 120 Minute 7.51 ng/L (0-10) 08/23/24 18:55 Delta Troponin T -0.49 ABS# (0-10) L 08/23/24 18:55 NT-Pro-B Natriuret Pep 420 pg/mL (0-125) H 08/23/24 17:01 Total Protein 7.9 g/dL (6.6-8.7) 08/23/24 17:01 Albumin 3.7 g/dL (3.5-5.2) 08/23/24 17:01 Globulin 4.2 g/dL (1.3-4.6) 08/23/24 17:01 Discharge Plan Discharge Patient Disposition: Home Clinical Impression: Chest discomfort Condition: Stable Prescriptions: No Action albuterol sulfate 90 mcg/actuation HFA aerosol inhaler 2 puff INHALATION Q6H PRN (Reason: shortness of breath) Qty: 8.5 3RF hydrocodone-acetaminophen 5-325 mg tablet 1 tab PO Q12H PRN (Reason: pain) 7 Days Qty: 14 0RF ipratropium-albuterol 0.5 mg-3 mg(2.5 mg base)/3 mL solution for nebulization 3 ml inhalation Q6H PRN (Reason: wheezing) Qty: 90 3RF (DME) shoulder immobilizer See Rx Instructions .Route .MEDSUPPLY Qty: 1 0RF Rx Instructions: As directed. Order 99 days amiodarone [Pacerone] 200 mg tablet 200 mg PO DAILY Qty: 90 3RF Eliquis 5 mg tablet 5 mg PO BID Qty: 180 1RF metoprolol succinate 25 mg tablet extended release 24 hr 25 mg PO DAILY Qty: 90 1RF Jardiance 10 mg tablet 10 mg PO DAILY Qty: 90 3RF Entresto 24-26 mg tablet 1 tab PO BID Qty: 180 0RF potassium chloride 20 mEq tablet,ER particles/crystals 20 meq PO DAILY Qty: 90 3RF atorvastatin 40 mg tablet 40 mg PO BEDTIME metolazone 2.5 mg tablet 2.5 mg PO DAILY PRN (Reason: weight gain) Qty: 30 0RF Rx Instructions: take for weight gain >3 pounds or shortness of breath or develop lower extremity edema nystatin 100,000 unit/gram cream 1 applic TOPICAL TID PRN (Reason: Skin Irritation) furosemide 40 mg tablet 40 mg PO DAILY Trelegy Ellipta 100-62.5-25 mcg blister with device 1 inh inhalation DAILY ciprofloxacin HCl 500 mg tablet 500 mg PO Q12H Qty: 20 0RF Discharge Orders: Discharge ED (Routine); Ordered 08/23/24 Ordered By: Stanislav Alarcon Referrals: Joni Duque MD [Primary Care Provider, [facility]] Patient Instructions: Esophagitis (ED), Patient Portal & Kelly Instructions Activity Restrictions/Additional Instructions: Your EKG, blood test, and x-ray are all reassuring with no evidence of heart or lung involvement with your burning sensation. We discussed that you may not be taking your alendronate (Fosamax) as prescribed. Taking it without a full glass of water, lying down too soon after dosing, or taking with other food or medications can cause inflammation of the esophagus and stomach which would feel like burning. Clinically, there is no evidence of esophageal or gastric perforation due to this irritation, but I believe this is the most likely cause of your pain today. Please, in the future, take the medicine exactly as prescribed by not eating or drinking anything else for 30 minutes and staying upright and drinking a full glass of water with the medication. Please follow- up closely with your primary care doctor to make sure they do not want to make changes to your medications. Print Language: [place] Sign Out Sign Out Data: Patient Sign Out occurred on 08/23/24 at 18:33. Patient's care was discussed, and care was transferred from Brock Gutiérrez DO to Stanislav Alarcon MD. Coding Level of Care Code ED Tunnel Elastic Operator Chainstitch for Chg Fwd Documented by User: Stanislav Alarcon MD 08/23/24 19:37 HPI - Chest Pain 2 General: Chief Complaint: Chest Pain Stated Complaint: dr mahogany, chest pain, L arm pain, SOB Time Seen by Provider: 08/23/24 15:03 Related Data Home Medications ?Medication ?Instructions ?Recorded ?Confirmed fluticasone fur. 100 mcg-umeclid 1 inh inhalation SHEA Y 10/25/22 05/23/24 62.5 mcg-vilant 25 mcg inhalat.powder (Trelegy Ellipta) atorvastatin 40 mg tablet 40 mg PO BEDTIME 12/29/23 furosemide 40 mg tablet 40 mg PO DAILY 02/14/2405/01 nystatin 100,000 unit/gram topical 1 applic topical TI D PRN Skin 02/14/24 05/23/24 cream Irritation Previous Rx's ?Medication ?Instructions ?Recorded albuterol sulfate 90 mcg/actuation 2 puff inhalation Q 6H PRN 03/21/22 aerosol inhaler shortness of breath #8.5 gra ms ipratropium 0.5 mg-albuterol 3 mg 3 ml inhalation Q6H PRN wheezing 07/22/22 (2.5 mg base)/3 mL nebulization #90 mL soln metolazone 2.5 mg tablet 2.5 mg PO DAILY PRN weight g ain 12/30/23 #30 tabs shoulder immobilizer #1 ea 02/04/24 amiodarone 200 mg tablet (Pacerone) 200 mg PO DAILY #9 0 tabs 03/03/24 apixaban 5 mg tablet (Eliquis) 5 mg PO BID #180 tabs 0 03/03/24 metoprolol succinate 25 mg 25 mg PO DAILY #90 tabs 04/26 tablet,extended release 24 hr ciprofloxacin HCl 500 mg tablet 500 mg PO Q12H #20 tab s 04/08/24 empagliflozin 10 mg tablet 10 mg PO DAILY #90 tabs 02/23 (Jardiance) hydrocodone 5 mg-acetaminophen 325 1 tab PO Q12H PRN p ain 7 days #14 05/23/24 mg tablet tabs potassium chloride 20 mEq 20 meq PO DAILY #90 tabs tablet,extended release(part/cryst) sacubitril 24 mg-valsartan 26 mg 1 tab PO BID #180 tab s 06/27/24 tablet (Entresto) Allergies Allergy/AdvReac Type Severity Reaction Status Date / Time dronedarone Allergy Severe rash, Verified 05/23/24 14:14 swelling doxacurium Allergy HIVES,RASH Verified 05/23/24 14:14 sulfamethoxazole (From Allergy ALGY-Rash Verified 05/23/24 14:14 Bactrim) trimethoprim (From Bactrim) Allergy ALGY-Rash Verified 05/23/24 14:14 PFSH ED 2 PFSH: Medical History Post-traumatic osteoarthritis, right shoulder Sinus tachycardia Emphysema/COPD Fibromyalgia CHF (congestive heart failure) Atrial flutter History of coronary angiogram COPD (chronic obstructive pulmonary disease) GERD (gastroesophageal reflux disease) Tobacco dependency Osteoarthritis Rheumatoid arthritis Atrial fibrillation Hypertension Nonischemic cardiomyopathy Ejection fraction 20% Hypotension Edema leg Surgical History AICD (automatic cardioverter/defibrillator) present S/P tonsillectomy H/O: hysterectomy Family History Father Cancer Mother Cancer Sister Cancer Other CAD (coronary artery disease) Hyperlipidemia Hypertension Lung disease Denies family history of Psychiatric illness Social History Smoking and tobacco/nicotine status: current some day tobacco/nicotine user (3- 4 cigarettes a day) cigarettes Packs smoked per day: 2 Years cigarettes smoked: 50 [ Other cigarette details: Started at age 10 years] Alcohol intake: never Substance/Drug Use: never Course 2 Vital Signs: Vital signs: Vital Signs Temperature 98.4 F 08/23/24 14:57 Pulse Rate 83 08/23/24 20:11 Respiratory Rate 20 H 08/23/24 20:11 Blood Pressure 128/91 08/23/24 20:11 Pulse Oximetry 97 08/23/24 20:11 Oxygen Delivery Me thod Room Air 08/23/24 18:01 MDM - Chest Pain Medical Decision Making In summary, patient is a 64-year-old female who has been suffering a burning- like sensation which she describes as constant, 3 of 10, radiating from front to back and encompassing the left side of the chest. Nothing seems to make it better or worse. EKG and lab work are reassuring with no evidence of ACS. Troponin x 2 are negative. BNP is only slightly elevated. I do not suspect ACS, PE, pneumonia, pneumothorax, esophageal perforation, or other emergency requiring further workup or hospitalization. We discussed that that she has not been taking her Fosamax exactly as prescribed, sometimes taking other medications along with it and not taking with a full glass of water and not remaining upright for the following 30 minutes. We discussed that inappropriate technique taking the medicine can cause esophagitis and gastritis which could cause wrist pain. There is no clinical evidence of esophageal perforation or gastric perforation, thus she will be discharged home with close follow-up to primary care to see whether they would like to either discontinue or pause her Fosamax. We discussed the proper way to take it. She shows good understanding and agrees to the plan Lab Data 08/23/24 17:01 08/23/24 17:01 Radiology Impressions Chest X-Ray 08/23/24 15:04 IMPRESSION: No acute findings. Laboratory Results WBC 8.65 10^3/uL (3.29-11.43) 08/23/24 17:01 RBC 4.68 10^6/uL (3.85-5.65) 08/23/24 17:01 Hgb 15.00 g/dL (11.27-16.99) 08/23/24 17:01 Hct 45.9 % (36-47) 08/23/24 17:01 MCV 98.1 fl (85-98) H 08/23/24 17:01 MCH 32.1 pg (27-33) 08/23/24 17:01 MCHC 32.7 g/dL (30-55) 08/23/24 17:01 RDW 12.9 % (12.1-15.1) 08/23/24 17:01 Plt Count 224 10^3/cmm (157-399) 08/23/24 17:01 MPV 9.8 fL (7.4-10.4) 08/23/24 17:01 Neut % (Auto) 62.5 % 08/23/24 17:01 Lymph % (Auto) 24.9 % 08/23/24 17:01 Brewster % (Auto) 10.8 % 08/23/24 17:01 Eos % (Auto) 0.9 % 08/23/24 17:01 Baso % (Auto) 0.6 % 08/23/24 17:01 Neut # (Auto) 5.41 10^3/uL (1.8-7.7) 08/23/24 17:01 Lymph # (Auto) 2.2 10^3/uL (0.8-4.8) 08/23/24 17:01 Brewster # (Auto) 0.9 10^3/uL (0.2-0.9) 08/23/24 17:01 Eos # (Auto) 0.1 10^3/uL (0.0-0.8) 08/23/24 17:01 Baso # (Auto) 0.1 10^3/uL (0.0-0.1) 08/23/24 17:01 Nucleated RBC % (auto) 0 % 08/23/24 17:01 Nucleated RBCs # 0.0 /100WBC 08/23/24 17:01 Sodium 141 mmol/L (136-145) 08/23/24 17:01 Potassium 4.1 mmol/L (3.5-5.1) 08/23/24 17:01 Chloride 99 mmol/L (98-107) 08/23/24 17:01 Carbon Dioxide 28 mmol/L (22-29) 08/23/24 17:01 Anion Gap 18.1 (5-19) 08/23/24 17:01 BUN 12 mg/dL (8-23) 08/23/24 17:01 Creatinine 1.0 mg/dL (0.5-0.9) H 08/23/24 17:01 GFR Calculation 55.5 mL/min (90-130) L 08/23/24 17:01 Glucose 97 mg/dL (65-115) 08/23/24 17:01 Calculated Osmolality 292 mOsm/kg (285-295) 08/23/24 17:01 Calcium 9.3 mg/dL (8.5-10.5) 08/23/24 17:01 Total Bilirubin 0.4 mg/dL (0.15-1.2) 08/23/24 17:01 AST 18 U/L (0-32) 08/23/24 17:01 ALT 15 U/L (0-33) 08/23/24 17:01 Alkaline Phosphatase 188 U/L (35-105) H 08/23/24 17:01 Troponin T Baseline 8 ng/L (0-10) 08/23/24 17:01 Troponin T 120 Minute 7.51 ng/L (0-10) 08/23/24 18:55 Delta Troponin T -0.49 ABS# (0-10) L 08/23/24 18:55 NT-Pro-B Natriuret Pep 420 pg/mL (0-125) H 08/23/24 17:01 Total Protein 7.9 g/dL (6.6-8.7) 08/23/24 17:01 Albumin 3.7 g/dL (3.5-5.2) 08/23/24 17:01 Globulin 4.2 g/dL (1.3-4.6) 08/23/24 17:01 All radiology interpretation(s) finalized by discharge Discharge Plan Discharge Patient Disposition: Home Clinical Impression: Chest discomfort Condition: Stable Prescriptions: No Action albuterol sulfate 90 mcg/actuation HFA aerosol inhaler 2 puff INHALATION Q6H PRN (Reason: shortness of breath) Qty: 8.5 3RF hydrocodone-acetaminophen 5-325 mg tablet 1 tab PO Q12H PRN (Reason: pain) 7 Days Qty: 14 0RF ipratropium-albuterol 0.5 mg-3 mg(2.5 mg base)/3 mL solution for nebulization 3 ml inhalation Q6H PRN (Reason: wheezing) Qty: 90 3RF (DME) shoulder immobilizer See Rx Instructions .Route .MEDSUPPLY Qty: 1 0RF Rx Instructions: As directed. Order 99 days amiodarone [Pacerone] 200 mg tablet 200 mg PO DAILY Qty: 90 3RF Eliquis 5 mg tablet 5 mg PO BID Qty: 180 1RF metoprolol succinate 25 mg tablet extended release 24 hr 25 mg PO DAILY Qty: 90 1RF Jardiance 10 mg tablet 10 mg PO DAILY Qty: 90 3RF Entresto 24-26 mg tablet 1 tab PO BID Qty: 180 0RF potassium chloride 20 mEq tablet,ER particles/crystals 20 meq PO DAILY Qty: 90 3RF atorvastatin 40 mg tablet 40 mg PO BEDTIME metolazone 2.5 mg tablet 2.5 mg PO DAILY PRN (Reason: weight gain) Qty: 30 0RF Rx Instructions: take for weight gain >3 pounds or shortness of breath or develop lower extremity edema nystatin 100,000 unit/gram cream 1 applic TOPICAL TID PRN (Reason: Skin Irritation) furosemide 40 mg tablet 40 mg PO DAILY Trelegy Ellipta 100-62.5-25 mcg blister with device 1 inh inhalation DAILY ciprofloxacin HCl 500 mg tablet 500 mg PO Q12H Qty: 20 0RF Discharge Orders: Discharge ED (Routine); Ordered 08/23/24 Ordered By: Stanislav Alarcon Referrals: Joni Duque MD [Primary Care Provider, [facility]] Patient Instructions: Esophagitis (ED), Patient Portal & Kelly Instructions Activity Restrictions/Additional Instructions: Your EKG, blood test, and x-ray are all reassuring with no evidence of heart or lung involvement with your burning sensation. We discussed that you may not be taking your alendronate (Fosamax) as prescribed. Taking it without a full glass of water, lying down too soon after dosing, or taking with other food or medications can cause inflammation of the esophagus and stomach which would feel like burning. Clinically, there is no evidence of esophageal or gastric perforation due to this irritation, but I believe this is the most likely cause of your pain today. Please, in the future, take the medicine exactly as prescribed by not eating or drinking anything else for 30 minutes and staying upright and drinking a full glass of water with the medication. Please follow- up closely with your primary care doctor to make sure they do not want to make changes to your medications. Print Language: [place] Sign Out Sign Out Data: Patient Sign Out occurred on 08/23/24 at 18:33. Patient's care was discussed, and care was transferred from Brock Gutiérrez DO to Stanislav Alarcon MD. Coding Level of Care Code ED Tunnel Elastic Operator Chainstitch for Kishan Sandhu
--- NOTE | 2024-08-23 15:04 | XRR_ITS ---
PROCEDURE INFORMATION: Exam: XR Chest Exam date and time: 08/23/2024 3:44 PM Age: 64 years old Clinical indication: Pain; Angina pectoris; Additional info: Chest pain TECHNIQUE: Imaging protocol: Radiologic exam of the chest. Views: 1 view. COMPARISON: CR (CHEST, ) 08/15/2024 8:16 PM FINDINGS: Tubes, catheters and devices: Cardiac pacemaker on the left with leads in satisfactory position. Lungs: Both lungs demonstrate diffuse interstitial coarsening which is felt to be chronic. No lung mass or infiltrate. Pleural spaces: Unremarkable. No pleural effusion. No pneumothorax. Heart/Mediastinum: Borderline cardiomegaly is noted. Bones/joints: Unremarkable. XR/XR chest 1V portable [id number] IMPRESSION: No acute findings.
[2024-08-23] MEDS: aspirin 81 mg Chew Tablet 324 MG PO (15:09)
--- NOTE | 2024-08-23 15:42 | PC.NURSE ---
PT STATED SHE WET HER DEPENDS. NURSE PROVIDED [facility] AND PT PLACED IN NEW DEPENDS.
--- OUTSIDE RECORDS SUMMARY | 2024-08-23 16:06 | XMS_ITS | Clinical Summary ---
Author Organization [facility] Address [address] [place] [address] Phone Care Team Providers Care Employment Trainer Name Role Phone Unavailable Primary Care Provider Unavailabl e Allergies No known active allergies Medications cyclobenzaprine (FLEXERIL) 10 mg Oral tabletIndication s:Neck muscle spasm Take 1 Tab by mouth 3 times daily as needed for Spasm. 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 Gender Identity Not on file Sexual Orientation Not on file Last Filed Vital Signs Vital Sign Reading Time Taken Comments Blood Pressure 131/91 05/20/2011 1:30 PM CDT Pulse 115 05/20/2011 1:30 PM CDT Temperature 36.1 C (97 F) 11/01/2010 2:54 PM CDT Respiratory Rate 22 11/01/2010 2:54 PM CDT Oxygen Saturation 92% 11/01/2010 2:54 PM CDT Inhaled Oxygen Concentration - - Weight 81.6 kg (180 lb) 05/20/2011 1:30 PM CDT Height 167.6 cm (5' 6 ) 05/20/2011 1:30 PM CDT Body Mass Index 29.05 05/20/2011 1:30 PM CDT Plan of Treatment Health Maintenance Due Date Last Done Comments DTAP/TDAP/TD VACCINES (1 - Tdap) 1977 BREAST CANCER SCREENING 1998 COLORECTAL SCREENING 2003 Colorectal Cancer Screening 2003 FIT-DNA Q 3 years 2003 FIT/FOBT Q 1 year 2003 Flex Sig/CT Colonography Q 5 years 2003 PNEUMOCOCCAL VACCINE 50+ YEARS (1 of 1 - PCV) 01/02/20 08 ZOSTER VACCINE (1 of 2) 01/02/2008 OSTEOPOROSIS SCREENING 2023 INFLUENZA VACCINE (#1) 2023 RSV VACCINE (60+ or ) (1 - 1-dose 75+ series) 2033 Advance Directives For more information, please contact: [phone] * Full Code (Latest Code Status on File) Date Activated Date Inactivated Comments 10/31/2010 2:13 AM 11/01/2010 6:40 PM
--- OUTSIDE RECORDS SUMMARY | 2024-08-23 16:06 | XMS_ITS | Patient Health Record ---
Author Organization [facility] Address [address] [place], [place] [id number] Care Team Providers Care Roll Hand Name Role Phone Kamron CAROLINA, Jordan Unavailable [phone] Neto CAROLINA, Joni Unavailable Unavailable Gilson LOWEP, Corina Unavailable [phone] Allergies Allergen (clinical drug ingredient) Drug/Non Drug Allergy documented on EMR Reaction Allergy Type Onset Date Status sulfamethoxazole / trimethoprim Bactrim Unknown Drug Allergy Active doxycycline doxycycline Unknown Drug Allergy Act jing HYDROcodone Unknown Drug Allergy Activ e Reason For Referral No Information Medications Medication SIG (Take, Route, Fr equency, Duration) Notes Start Date End Date Status traMADol 50 mg 1 tab(s) orally 2 times a day Active Problems Problem Type SNOMED Code ICD Code Onset Dates Problem Status W/U Status Risk Notes Problem Postherpetic neuralgia (3079808) 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) Active confirmed Encounters Encounter Location Date Provider Diagnosis [facility] [address] [place], [place] [id number] 09/14/2023 Corina Riggins Procedure and treatment not carried out because of patient's decision for unspecified reasons Z53.20 Assessments Encounter Date Diagnosis (ICD Code) Assessment Notes Treatment Notes Treatment Clinical Notes Section Notes 09/14/2023 Procedure and treatment not carried out because of patient's decision for unspecified reasons (ICD-10 - Z53.20) Plan Of Treatment No Information Insurance Providers Payer Name Payer Address Payer Phone Subscriber Number Group Number Insured Name Patient Relationship to Insured Coverage Start Date Coverage End Date [facility] [address] [address] [place] [address] [id number] [employer] Shana Roy Self - patient is the insured [place] [address] [place] [address] [id number] Shana Roy Self - patient is the insured Medical (General) History Medical History History ICD Code Post herpatic neuralgia Shingles TIA Chronic sore throat COPD RA Fibromyalgia Surgical History Surgery Date(Month/Year) Hysterectomy Appendectomy Trichomonas Tonsillectomy
--- OUTSIDE RECORDS SUMMARY | 2024-08-23 16:06 | XMS_ITS | Clinical Summary ---
Author Organization [facility] Address [address] Attn: Epic Prelude ADT [place] [address] Care Team Providers Care Informal Waiter/Waitress Name Role Phone Joni Duque MD Primary Care Provider + Allergies Active Allergy Reactions Criticality Noted Date Comments Doxacurium Rash Low 11/20/2022 Dronedarone Rash High 11/20/2022 Sulfamethoxazole Rash Low 11/20/2022 Trimethoprim Rash Low 11/20/2022 Medications amiodarone (CORDARONE) 200 mg tablet Take 200 mg by mouth daily. 3 Active apixaban (ELIQUIS) 5 mg tablet Take 5 mg by mouth 2 times daily. 2 Active carBAMazepine 100 mg chewable tablet Take 200 mg by mouth 2 times daily. 3 Active dexAMETHasone (DECADRON) 6 mg Tablet Take 6 mg by mouth every 12 hours. 3 Active empagliflozin (JARDIANCE) 10 mg tablet Take 10 mg by mouth daily. 3 Active etanercept 50 mg/mL (0.98 mL) Syringe Inject 50 mg by subcutaneous injection every 7 days. 3 Active fluticasone propionate (Flonase Allergy Relief) 50 mcg/spray Inlet, Suspension nasal inhaler Administer 2 Sprays in each nostril daily. 2 Active fluticasone-um eclidinium-marlen anterol (Trelegy Ellipta) 100-62.5-25 mcg Disk with Device Take 1 Puff by inhalation daily. 3 Active furosemide (LASIX) 40 mg tablet Take 40 mg by mouth daily. 3 Active hydroxychloroq uine (PLAQUENIL) 200 mg tablet Take 200 mg by mouth 2 times daily. 1 Active ipratropium/al buterol sulfate (IPRATROPIUM-A LBUTEROL INHALATION) Take 1 Puff by inhalation one time as needed for Other (See Comment). 3 Active metOLazone (ZAROXOLYN) 2.5 mg tablet Take 2.5 mg by mouth daily. 2 Active metoprolol tartrate (LOPRESSOR) 50 mg tablet Take 50 mg by mouth 2 times daily. 3 Active montelukast (SINGULAIR) 10 mg tablet Take 10 mg by mouth daily. 3 Active ondansetron (ZOFRAN) 4 mg Tablet Take 4 mg by mouth every 8 hours as needed for Nausea. 2 Active albuterol sulfate HFA 90 mcg/actuation aerosol inhaler Take 2 Puffs by inhalation see administration instructions. 3 Active HYDROcodone-ac etaminophen (NORCO) 5-325 mg tabletIndicati ons:Post herpetic neuralgia Take 1 Tablet by mouth every 4 hours as needed for Pain, Moderate. Max Daily Amount: 6 Tablets 20 Tablet 4 Active Active Problems Problem Noted Date Diagnosed Date Neck muscle spasm 05/20/2011 Pelvic fracture 10/31/2010 Social History Tobacco Use Types Packs/Day Years Used Date Smoking Tobacco: Some Days Cigarettes Smokeless Tobacco: Never Alcohol Use Standard Drinks/Week Comments No 0 (1 standard drink = 0.6 oz pur e alcohol) Feeling Safe Answer Date Recorded Are you in a relationship wi th someone who hurts you emotionally and/or physically? 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 Gender Identity Not on file Sexual Orientation Not on file Last Filed Vital Signs Vital Sign Reading Time Taken Comments Blood Pressure 113/46 03/20/2023 10:00 PM CANTEEN ATTENDANT Pulse 80 03/20/2023 10:45 PM CANTEEN ATTENDANT Temperature 36.7 C (98 F) 03/20/2023 9:49 PM CANTEEN ATTENDANT Respiratory Rate 18 03/20/2023 11:39 PM CANTEEN ATTENDANT Oxygen Saturation 92% 03/20/2023 11:39 PM CANTEEN ATTENDANT Inhaled Oxygen Concentration - - Weight 103.4 kg (228 lb) 03/20/2023 9:49 PM CANTEEN ATTENDANT Height 167.6 cm (5' 6 ) 03/20/2023 9:49 PM CANTEEN ATTENDANT Body Mass Index 36.8 03/20/2023 9:49 PM CANTEEN ATTENDANT Plan of Treatment Health Maintenance Due Date Last Done Comments PNEUMOCOCCAL VACCINE 50+ YEARS (1 of 2 - PCV) 01/01/19 77 ZOSTER VACCINE (1 of 2) 1977 BREAST CANCER SCREENING 1998 COLORECTAL SCREENING 2003 Colorectal Cancer Screening 2003 FIT-DNA Q 3 years 2003 FIT/FOBT Q 1 year 2003 Flex Sig/CT Colonography Q 5 years 2003 RSV VACCINE (60+ or ) (1 - Risk 60-74 years 1-dose series) 2018 OSTEOPOROSIS SCREENING 2023 INFLUENZA VACCINE (#1) 2023 DTAP/TDAP/TD VACCINES (2 - Td or Tdap) 10/25/2032 Insurance [place]ICAID [place] Care Teams Informal Waiter/Waitress Relationship Specialty Start Date End Date Joni Duque MD [address] [place] [phone] PCP - General Family Practice 03/20/23
[2024-08-23 17:06] LABS: Basophils # 0.1 10^3/uL (0.0-0.1); Basophils % 0.6 %; Eosinophils # 0.1 10^3/uL (0.0-0.8); Eosinophils % 0.9 %; Hematocrit 45.9 % (36-47); Lymphocytes # 2.2 10^3/uL (0.8-4.8); Lymphocytes % 24.9 %; Mean Corpuscular HGB Conc 32.7 g/dL (30-55); Mean Corpuscular Hemoglobin 32.1 pg (27-33); Mean Corpuscular Volume 98.1 fl (85-98); Mean Platelet Volume 9.8 fL (7.4-10.4); Monocytes # 0.9 10^3/uL (0.2-0.9); Monocytes % 10.8 %; Neutrophils # 5.41 10^3/uL (1.8-7.7); Neutrophils % 62.5 %; Nucleated Red Blood Cells % 0 %; Platelet Count 224 10^3/cmm (157-399); Red Blood Count 4.68 10^6/uL (3.85-5.65); Red Cell Distribution Width 12.9 % (12.1-15.1); White Blood Count 8.65 10^3/uL (3.29-11.43)
[2024-08-23 17:35] LABS: Alanine Aminotransferase 15 U/L (0-33); Albumin Level 3.7 g/dL (3.5-5.2); Alkaline Phosphatase 188 U/L (35-105); Anion Gap 18.1 (5-19); Aspartate Amino Transferase 18 U/L (0-32); Blood Urea Nitrogen 12 mg/dL (8-23); Calcium 9.3 mg/dL (8.5-10.5); Carbon Dioxide 28 mmol/L (22-29); Chloride 99 mmol/L (98-107); Creatinine Clr Calc Pharmacy 65.9541; Globulin 4.2 g/dL (1.3-4.6); Glomerular Filtration Rate 55.5 mL/min (90-130); Glucose 97 mg/dL (65-115); NT Pro B Type Natriuretic Pept 420 pg/mL (0-125); Osmolality Calculated 292 mOsm/kg (285-295); Potassium 4.1 mmol/L (3.5-5.1); Sodium 141 mmol/L (136-145); Total Bilirubin 0.4 mg/dL (0.15-1.2); Total Protein 7.9 g/dL (6.6-8.7)
--- NOTE | 2024-08-23 18:04 | ECG_ITS ---
[employer] Test Date: 2024-08-23 Pat Name: Shana Roy Department: Room: Gender: Female Relocation Associate: : [id number] Requested By: Brock Mckeon Order Number: [id number] Reading MD: Measurements Intervals [place] Rate: 72 P: 61 CT: 173 QRS: 59 QRSD: 117 T: 118 QT: 425 QTc: 468 Interpretive Statements SINUS RHYTHM LOW QRS VOLTAGE IN PRECORDIAL LEADS [QRS DEFLECTION < 1.0 mV IN CHEST LEADS] MODERATE INTRAVENTRICULAR CONDUCTION DELAY [110+ ms QRS DURATION] NONSPECIFIC ST & T-WAVE ABNORMALITY [id number]
[2024-08-23 18:11] LABS: Troponin(5th) Baseline 8 ng/L (0-10)
[2024-08-23 19:17] LABS: Troponin 5 2HR 7.51 ng/L (0-10); Troponin 5 2HR Delta -0.49 ABS# (0-10)
== END 2024-08-23 20:14 | disposition home or self-care (01) ==
PROVIDERS: Family Medicine; Emergency Provider Student in an Organized Health Care Education/Training Program; PCP Family Medicine
DX: R07.89 Other chest pain (principal); Z79.01 Long term (current) use of anticoagulants; F17.210 Nicotine dependence, cigarettes, uncomplicated; J44.9 Chronic obstructive pulmonary disease, unspecified; I11.0 Hypertensive heart disease with heart failure; I50.9 Heart failure, unspecified
CPT/HCPCS: 36415; 71045; 80053; 83880; 84484; 85025; 93005; 99285; J9999

== ENCOUNTER 2024-10-20 16:05 | Outpatient (CLI) | payer MEDICARE, MEDICAID, SELFPAY ==
--- NOTE | 2024-10-20 16:12 | XRR_ITS ---
PROCEDURE INFORMATION: Exam: XR Lumbosacral Spine Exam date and time: 10/20/2024 4:30 PM Age: 64 years old Clinical indication: Low back pain TECHNIQUE: Imaging protocol: Radiologic exam of the lumbosacral spine. Views: 4 or 5 views. COMPARISON: CR XR lumbar spine 2-3V* [id number] 11/12/2020 4:48 PM FINDINGS: Bones/joints: 9 degree levocurvature centered at L3. Mild degenerative disc disease reflected as a decrease in disc space height and anterior endplate osteophytosis with the exception of moderate to severe disc space narrowing L5-S1. No spondylolisthesis. No pars defect. No fracture. Soft tissues: Calcification of the abdominal aorta. XR/XR lumbar spine min 4V [id number] IMPRESSION: 1. 9 degree levocurvature centered at L3. 2. Mild degenerative disc disease reflected as a decrease in disc space height and anterior endplate osteophytosis with the exception of moderate to severe disc space narrowing L5-S1.
== END 2024-10-20 16:06 | disposition home or self-care (01) ==
LOC: RAD 16:09
PROVIDERS: PCP Family Medicine; Visit Provider Family Medicine
DX: M51.370 Other intervertebral disc degeneration, lumbosacral region with discogenic back pain only (principal); M51.360 Other intervertebral disc degeneration, lumbar region with discogenic back pain only; M25.78 Osteophyte, vertebrae
CPT/HCPCS: 72110

== ENCOUNTER → 2024-12-28 10:30 | Outpatient (BNVA) | payer MEDICARE, MEDICAID, SELFPAY | PROVIDERS: PCP Family Medicine; Visit Provider Internal Medicine Cardiovascular Disease | DX: Z45.02 Encounter for adjustment and management of automatic implantable cardiac defibrillator (principal) | CPT/HCPCS: 93296 ==

== ENCOUNTER → 2025-01-02 10:55 | Outpatient (BNVA) | payer MEDICARE, MEDICAID, SELFPAY | PROVIDERS: PCP Family Medicine; Visit Provider Internal Medicine Rheumatology | DX: J44.9 Chronic obstructive pulmonary disease, unspecified (principal); M05.79 Rheumatoid arthritis with rheumatoid factor of multiple sites without organ or systems involvement; Z79.899 Other long term (current) drug therapy; Z71.85 Encounter for immunization safety counseling; I50.9 Heart failure, unspecified; M81.0 Age-related osteoporosis without current pathological fracture | CPT/HCPCS: 36415; 80076; 82306; 82565; 85025; 85651; 86140; 86480; 86704; 86803; 87340; 87517; 99215 ==

== ENCOUNTER 2025-01-13 18:41 | Emergency (ER) | payer MEDICARE, MEDICAID, SELFPAY ==
--- OUTSIDE RECORDS SUMMARY | 2020-10-15 13:40 | XMS_ITS | Continuity of Care Document ---
Author Organization [facility] Address [address] [place] [address] Phone Care Team Providers Care Manager Utility Name Role Phone Francisco Quiñonez MD Unavailable Unavailable Allergies, Adverse Reactions, Alerts Substance Reaction Status Criticality Sulfa (Sulfonamide Antibiotics) Active No Information PIOGLITAZONE HCL Active No Informat ion contact metal agent Active No Infor mation DICLOFENAC POTASSIUM Active No Info rmation SITAGLIPTIN PHOSPHATE Active No Inf ormation celecoxib rashrash Active No Information guaifenesin gu issues Active No Information latex rashrash Active No Information Uycjtvu-RJY-VsH Reductase Inhibitors Acti ve No Information Sulfa (Sulfonamide Antibiotics) Unknown Active No Information Medications Medication Instructions Dosage Effective Dates (start - stop) Status Comments montelukast 10 mg tablet take 1 tablet by oral route every day in the evening 10 MG - Active Aldactone 100 mg tablet take 1 tablet by oral route every day 100 MG - Active Align 4 mg capsule take one capsule daily as needed - Active buspirone 15 mg tablet take 1 tablet by oral route 2 times every day as needed 15 MG - Active oxycodone 5 mg tablet take 1 tablet by oral route every 4 - 6 hours as needed 5 MG - Active Vitamin D2 1,250 mcg (50,000 unit) capsule take 1 capsule by oral route every week 61542 UNITS - Active mupirocin 2 % topical ointment apply by topical route 3 times every day a small amount to the affected area 0.00 - Active B-12 Compliance 1,000 mcg/mL injection kit inject 1 milliliter by intramuscular route every month - Active prednisone 20 mg tablet take 1 tablet by oral route every day 20 MG - Active spironolactone 25 mg-hydrochlorothiazid e 25 mg tablet take 1 tablet by oral route every day 1.00 tablet - Active Testosterone 200mg INTRAMUSC LIQUID - Active Vanicream topical - Active Topamax 50 mg tablet take 2 tablet by oral route 2 times every day 100 MG - Active Imitrex 50 mg tablet take 1 tablet by oral route after onset of migraine; may repeat after 2 hours if headache returns,not to exceed 200mg in 24hrs as needed 50 MG - Active Neurontin 600 mg tablet take 1 tablet by oral route 3 times every day 600 MG - Active Zanaflex 4 mg capsule take 1 capsule by oral route 3 times every day 4 MG - Active Phenergan 25 mg/mL injection solution 25mg qid prn - Active lidocaine 5 % topical patch apply 1 patch by transdermal route 2 times every day (May wear up to 12hours.) 1 patch - Active Cymbalta 60 mg capsule,delayed release take 1 capsule by oral route every day - Active Lasix 20 mg tablet take 1 tablet by oral route every day 20 MG - Active Flonase Allergy Relief 50 mcg/actuation nasal spray,suspension inhale 2 spray by intranasal route every day in each nostril 100 MCG - Active aspirin 81 mg tablet,delayed release take 1 tablet by oral route every day as needed 81 MG - Active Aleve 220 mg tablet take 1 tablet by oral route every 6 hours as needed as needed 220 MG - Active multivitamin tablet take 1 tablet by oral route every day 1 tablet - Active Claritin-D 12 Hour 5 mg-120 mg tablet,extended release take 1 tablet by oral route every 12 hours as needed 1.00 tablet - Active Benadryl 25 mg capsule take 2 capsule by oral route every 4 - 6 hours as needed as needed 50 MG - Active Procedures Procedure Date OFFICE/OUTPATIENT VISIT, NEW ROUTINE VENIPUNCTURE COMPLETE CBC W/ AUTO DIFF WBC 0 C-REACTIVE PROTEIN RBC SED RATE, NONAUTOMATED COMPREHENSIVE METABOLIC PANEL 0 ASSAY OF CK (CPK) ASSAY OF BLOOD/URIC ACID COMPLEMENT, ANTIGEN OFFICE CONSULTATION ROUTINE VENIPUNCTURE Advance Directives Directive Yes / No Effective Date File Name No Information Encounters Encounter Description Practice Location Reason(s) For Visit Diagnoses Date Provider Providers Copied on Encounter [facility], [address] [place] [address], [id number], tel:[phone] Physician [facility] No Information 1 Khang Singh. [address] [place] [address], [id number] , [place]. tel: [phone] OFFICE/OUTPAT IENT VISIT, NEW [facility], [address] [place] [address], [id number], [place] tel:[phone] [facility] Body mass index (BMI) 32.0-32.9, adultPositive NIKI (antinuclear antibody)Polyarthr algiaChronic fatigueFibromyalgi Joie murray 0 Yakov Gomes. [address] [place] [address], [id number] , [place]. tel: [phone] Referring Provider: Newton Coker, [address], [id number] . tel:[phone] [facility], [address] [place] [address], [id number], [place] tel:[phone] Physician [facility] Ana VINES No Information 8 Bj Reza. [address] [place] [address], [id number] , [place]. tel: [phone] OFFICE CONSULTATION [facility], [address] [place] [address], [id number], [place] tel:[phone] [facility] Allergy symptoms (chief complaint) Chronic rhinitis 8 Bj Reza. [address] [place], [place], [id number] , [place]. tel:[phone] Referring Provider: Newton Coker, [address] [place] [address], [id number] . tel:[phone] Family History Family Member Type Diagnosis Age At Onset No Information Immunizations Vaccine Date Status Comments FLUCELVAX QUAD administered Elayne rce: Other Provider Influenza, injectable, triva lent, split virus, 4 years and older, Fluvirin administered Source: Other Provid er Payers Payer name Insurance type Covered libertarian ID Edelmira ramos(s) [facility] [id number] Social History Type Description Quantity Date Captured Comments Sex Female Smoking Status No Information Chief Complaint And Reason For Visit No Information Reason For Referral Reason For Referral No Information Plan Of Treatment Date Type Action Status Referral Ordered: Newton Ramesh -[facility] : Family Medicine (related to Skin sore) ordered Referral Referred To: Newton Ramesh [address], [phone] Ordered: Referrals: [facility] : Family Medicine. Newton Ramesh ordered Referral Ordered: Newton Ramesh -Family Medicine (related to Chronic rhinitis) ordered Referral Referred To: Newton Ramesh [address] [place] [address], [phone] Ordered: Referrals: Family Medicine. Newton Ramesh ordered Patient Education Neurontin 600 mg tablet completed History Of Present Illness Encounter Date Complaint History Of Prese nt Illness Allergy symptoms Functional Status Date Functional Assessmen t No Information Instructions Date Instruction Additional Infor mation Giving encouragement to exercise Related to Body mass index [BMI] 32.0-32.9, adult Assessments Type Assessment Date No Information Patient Care Teams Name Effective Dates (start - stop) Status Members No Information
--- OUTSIDE RECORDS SUMMARY | 2025-01-04 02:50 | XMS_ITS | Continuity of Care Document ---
Author Organization [facility] Address [address] [place] [address] Phone Care Team Providers Care Icu Nurse Name Role Phone aKssie Sin NP Unavailable Unavailable Allergies, Adverse Reactions, Alerts Substance Reaction Status Criticality cephalexin sore throat Active No Information TRAZODONE HCL disorientation Active No Informati on latex rash Active No Information Oldmyrd-KLL-AdB Reductase Inhibitors myalgia Acti ve No Information Sulfa (Sulfonamide Antibiotics) rash Active No Information SITAGLIPTIN PHOSPHATE myalgia Active No Inf ormation PENICILLIN rash Active No Information Medications Medication Instructions Dosage Effective Dates (start - stop) Status Comments CLOPIDOGREL 75 MG TABLET TAKE 1 TABLET BY MOUTH EVERY DAY - Active isosorbide mononitrate ER 30 mg tablet,extended release 24 hr take 1 tablet by oral route every day in the morning 30 MG - Active Zetia 10 mg tablet take 1 tablet by oral route every day 10 MG - Active Repatha SureClick 140 mg/mL subcutaneous pen injector inject 1 milliliter by subcutaneous route every 2 weeks in the abdomen, thigh, or outer area of upper arm (rotate sites) 140 MG - Active PA approved 03/02/24- 03/01/25 furosemide 40 mg tablet take 1 tablet by oral route every day 40 MG - Active tizanidine 4 mg tablet take 2 tablet by oral route every 8 hours as needed not to exceed 3 doses in 24 hours - Active METOPROLOL SUCC ER 25 MG TAB TAKE 1/2 TABLET BY MOUTH EVERY DAY - Active colchicine 0.6 mg tablet take 1 tablet by oral route every day 0.6 MG - Active oxybutynin chloride ER 5 mg tablet,extended release 24 hr take 1 tablet by oral route every day 5 MG - Active baclofen 10 mg tablet take 1 tablet by oral route 3 times every day 10 MG - Active Ozempic 1 mg/dose (4 mg/3 mL) subcutaneous pen injector inject (1MG) by subcutaneous route every week on the same day of each week 1 MG - Active Pristiq 100 mg tablet,extended release take 1 tablet by oral route 2 times every day 100 MG - Active Claritin-D 12 Hour 5 mg-120 mg tablet,extended release take 1 tablet by oral route every 12 hours 1.00 tablet - Active Benadryl Allergy 25 mg tablet take 1 tablet by oral route every 4 - 6 hours as needed 25 MG - Active aspirin 81 mg tablet,delayed release take 1 tablet by oral route every day 81 MG - Active promethazine 25 mg tablet take 1 tablet by oral route every 4 - 6 hours as needed 25 MG - Active buspirone 10 mg tablet take 1 tablet by oral route 6 hrs as needed - Active gabapentin 600 mg tablet take 1 tablet by oral route 3 times every day 600 MG - Active topiramate 50 mg tablet take 2 tablet by oral route 2 times every day 100 MG - Active multivitamin tablet take 2 tablet by oral route every day 2 tablet - Active Probiotic-Digestiv e Enzymes 5 mg-250 mg capsule lauri 1 capsule in daily - Active CLOPIDOGREL 75 MG TABLET TAKE 1 TABLET BY MOUTH EVERY DAY - No Longer Active Procedures Procedure Date OFFICE/OUTPATIENT VISIT EST ELECTROCARDIOGRAM REPORT SUBSEQUENT HOSPITAL CARE HOSPITAL DISCHARGE DAY SUBSEQUENT HOSPITAL CARE INITIAL HOSPITAL CARE EMERGENCY DEPT VISIT INITIAL HOSPITAL CARE OFFICE/OUTPATIENT VISIT EST EKG- COMPLETE SUBSEQUENT HOSPITAL CARE SUBSEQUENT HOSPITAL CARE COMPLETE ECHO SUBSEQUENT HOSPITAL CARE SUBSEQUENT HOSPITAL CARE ELECTROCARDIOGRAM REPORT INITIAL HOSPITAL CARE SUBSEQUENT HOSPITAL CARE ACUTE MYOCARDIAL INFARCTION, SINGLE VESS LE PERCUTANEOUS TRANSLUMINAL REVASCULARIZAT ION L HRT ARTERY/VENTRICLE ANGIO MOD SED SAME PHYS/QHP 5/>YRS OFFICE/OUTPATIENT VISIT EST OFFICE/OUTPATIENT VISIT EST OFFICE/OUTPATIENT VISIT EST 21 DAY EVENT PHYS REV/INTRP COMPLETE ECHO HT MUSCLE IMAGE SPECT MULT CARDIOVASCULAR STRESS TEST 21 DAY EVENT HOOKUP/RECORD EKG- COMPLETE OFFICE/OUTPATIENT VISIT EST ELECTROCARDIOGRAM REPORT ELECTROCARDIOGRAM REPORT Advance Directives Directive Yes / No Effective Date File Name No Information Encounters Encounter Description Practice Location Reason(s) For Visit Diagnoses Date Provider Providers Copied on Encounter [facility], [address], [place], [id number], [place] tel:[phone] [facility] No Information Merrick Fernando. [address], [place], [id number], [place]. tel:[phone] [facility], [address], [place], [id number], [place] tel:[phone] [facility] No Information 5 Ciara Browne. [address], [place], [id number], [place]. tel:[phone] [facility], [address], [place], [id number], [place] tel:[phone] [facility] No Information 5 Merrick Fernando. [address], [place], [place], [address], [place]. tel:[phone] OFFICE/OUTPA TIENT VISIT EST [facility], [address], [place], [place], [address], [place] tel:[phone] [facility] HPI History (chief complaint) Mixed hyperlipidem iaEssential hypertension Coronary artery disease involving afognak coronary artery of afogn[place] heart with other form of angina pectorisHx of non-ST elevation myocardial infarction (NSTEMI)Isch emic cardiomyopat hyStatin intoleranceP araplegia, unspecified 5 Ciara Browne. [address], [place], [place], [address], [place]. tel:[phone] Referring Provider: Pavan Mccormick MD, [address], [place], [address]. tel:[phone] [facility], [address], [place], [place], [address], [place] tel:[phone] [facility] No Information 5 Merrick Fernando. [address], [place], [place], [address], [place]. tel:[phone] [facility], [address], [place], [place], [address], [place] tel:[phone] [facility] No Information 5 Aparna Wells. [address], [facility] [address], [place], [place], [address], [place]. tel:[phone] Referring Provider: Silvia Dalton MD, [address], [place], [address]. tel:[phone] SUBSEQUENT HOSPITAL CARE [facility], [address], [place], [place], [address], [place] tel:[phone] [facility] heart disease of afogn[place] cor art w unsp ang pctrsChronic total occlusion of coronary arteryEssent ial (primary) hypertension Pure hypercholest erolemia, unspecifiedO ther specified abnormal findings of blood chemistry Jose G Degroot. [address], [place], [place], [address], [place]. tel:[phone] Referring Provider: Jerardo Shoemaker, [address], [place], [address]. tel:[phone] lting Provider: Levy Sanchez MD, [address], [place], [address]. tel:[phone] HOSPITAL DISCHARGE DAY [facility], [address], [place], [place], [address], [place] tel:[phone] [facility] heart disease of afognak coronary artery w/o ang pctrsPresenc e of coronary angioplasty implant and graftCandidi asis of skin and nailNicotine dependence, cigarettes, uncomplicate dHyperlipide jose miguel, unspecified 5 Patricia Ritter. [address], [place], [place], [address], [place]. tel:[phone] Consulting Provider: Levy Sanchez MD, [address], [place], [address]. tel:[phone] IN[facility]IAL HOSPITAL CARE [facility], [address], [place], [place], [address], [place] tel:[phone] [facility] heart disease of afogn[place] coronary artery w/o ang pctrsPresenc e of coronary angioplasty implant and graftHyperte nsive heart disease with heart failureType 2 diabetes mellitus without complication sNicotine dependence, unspecified, uncomplicate d 5 Laura Lockett. [address], [address], [place], [place], [address], [place]. tel:[phone] Referring Provider: MARIELA Vaca [address], [place], [address]. tel:[phone] lting Provider: Levy Sanchez MD, [address], [place], [address]. tel:[phone] SUBSEQUENT HOSPITAL CARE [facility], [address] [place], [address], [place] tel:[phone] [facility] Chest pain, unspecifiedO ther specified abnormal findings of blood chemistryRad iculopathy, lumbar regionElevat ion of levels of liver transaminase levelsCandid iasis of skin and nail 0 4- 5 Patricia Ritter. [address], [place], [place], [address], [place]. tel:[phone] Consulting Provider: Levy Sanchez MD, [address], [place], [address]. tel:[phone] EMERGENCY DEPT VISIT [facility], [address], [place], [address], [place] tel:[phone] [facility] Chest pain, unspecified June-0 5 Sha Naik. [address] [place], [address], [place]. tel:[phone] Consulting Provider: Levy Sanchez MD, [address], [place], [address]. tel:[phone] INITIAL HOSPITAL CARE [facility], [address] [place], [place], [address], [place] tel:[phone] [facility] Chest pain, unspecifiedO ther specified abnormal findings of blood chemistryPre sence of coronary angioplasty implant and graftAthscl heart disease of afognak coronary artery w/o ang pctrsElevati on of levels of liver transaminase levels 0 5 Patricia Ritter. [address], [place], [place], [address], [place]. tel:[phone] Consulting Provider: Levy Sanchez MD, [address], [place], [address]. tel:[phone] [facility], [address], [place], [place], [address], [place] tel:[phone] [facility] No Information 5 Merrick Fernando. [address], [place], [place], [address], [place]. tel:[phone] OFFICE/OUTPA TIENT VISIT EST [facility], [address], [place], [place], [address], [place] tel:[phone] [facility] HPI History (chief complaint) NSTEMICAD in afognak arteryMixed hyperlipidem iaEssential hypertension Paraplegia, unspecified 5 Merrick Fernando. [address], [place], [place], [address], [place]. tel:[phone] Referring Provider: Kassie Sin NP, [address], [place], [address]. tel:[phone] [facility], [address], [place], [place], [address], [place] tel:[phone] [facility] No Information 5 Ciara Browne. [address], [place], [place], [address], [place]. tel:[phone] Referring Provider: Kassie Sin NP, [address], [place], [address]. tel:[phone] [facility], [address], [place], [place], [address], [place] tel:[phone] [facility] HPI History (chief complaint) NSTEMICAD in afognak arteryMixed hyperlipidem iaEssential hypertension Paraplegia, unspecified 5 Merrick Fernando. [address], [place], [place], [address], [place]. tel:[phone] [facility], [address], [place], [place], [address], [place] tel:[phone] [place] [address] Non-ST elevation (NSTEMI) myocardial infarctionEs sential (primary) hypertension Urinary tract infection, site not specifiedTyp e 2 diabetes mellitus without complication sLong term (current) use of insulin 5 Robyn Coreas. [address], [place], [place], [address], [place]. tel:[phone] Consulting Provider: Jeromy Mario MD, [address], [address]. tel:[phone] [facility], [address] [address], [place], [place], [address], [place] tel:[phone] [place] [address] No Information 5 Aparna Munizmarielos. [address], [address], [id number], [place]. tel:[phone] Referring Provider: Kelton Carlson DO, [address], [place], [address]. tel:[phone] SUBSEQU[facility]OSPITAL CARE [facility], [facility] [place], [place], [address], [place] tel:[phone] [place] [address] Acute myocardial infarction, unspecifiedP resence of coronary angioplasty implant and graftAllergy status to oth drug/meds/bi ol subst statusHypote nsion, unspecifiedA thscl heart disease of afognak coronary artery w/o ang pctrs 5 Robyn Coreas. [address], [place], [place], [address], [place]. tel:[phone] Consulting Provider: Jeromy Mario MD, [address] [facility] [address], [place], [address]. tel:[phone] [facility], [facility] [place] [address] [address], [place], [place], [address], [place] tel:[phone] [place] [address] No Information 5 Laura Lockett. [address], [address], [id number], [place]. tel:[phone] Referring Provider: Neelam Villatoro MD, [facility] [place], [address]. tel:[phone] [facility]SEQU[facility], [facility] [place], [place], [address], [place] tel:[phone] [place] [address] Acute myocardial infarction, unspecifiedP resence of coronary angioplasty implant and graftType 2 diabetes mellitus without complication sLong-term (current) use of injectable non-insulin antidiabetic drugsLong term (current) use of oral hypoglycemic drugs 5 Mary Looney. [address] [place], [place], [address], [place]. tel:[phone] Consulting Provider: Jeromy Mario MD, [address] [place] [address], [place], [address]. tel:[phone] [facility], [facility] [address] [address], [place], [place], [address], [place] tel:[phone] [place] [address] No Information 5 Ciara Browne. [address], [place], [place], [address], [place]. tel:[phone] Referring Provider: Fidelina Reed DO, [address], [place], [address]. tel:[phone] [facility], [facility], [place], [place], [address], [place] tel:[phone] [place] [address] No Information 5 Shelbi Pinzon. [address], [facility] [address], [place], [address], [place]. tel:[phone] Referring Provider: Jeromy Mario MD, [address] [facility] [address], [place], [address]. tel:[phone] IN[facility]IAL [facility]OSPITAL CARE [facility], [facility] [place], [place], [address], [place] tel:[phone] [place] [address] Acute myocardial infarction, unspecifiedP resence of coronary angioplasty implant and graftAllergy status to oth drug/meds/bi ol subst statusType 2 diabetes mellitus without complication sLong term (current) use of oral hypoglycemic drugs 5 Mary Looney. [facility] [place] [place], [address], [place]. tel:[phone] Consulting Provider: Jeromy Mario MD, [facility] [address] [place] [address], [place], [address]. tel:[phone] [facility], [facility] [address], [place], [place], [address], [place] tel:[phone] [place] [address] No Information 5 Shelbi Pinzon. [facility], [facility] [address], [place], [address], [place]. tel:[phone] Referring Provider: Fidelina Reed DO, [facility], [place], [address]. tel:[phone] [facility], [facility]1 [address] [facility], [place], [place], [address], [place] tel:[phone] [place] [address] No Information 5 Shelbi Pinzon. [address], [address], [place], [place], [address], [place]. tel:[phone] Referring Provider: Fidelina Reed DO, [address], [place], [address]. tel:[phone] OFFICE/OUTPA TIENT VISIT EST [facility], [address], [place], [place], [address], [place] tel:[phone] [facility] Freeform HPI (chief complaint) Mild diastolic dysfunctionS hortness of breathSmokin gEssential hypertension 7 Rosetta Perez. [address] [facility], [address], [place], [place], [address], [place]. tel:[phone] Referring Provider: Jerardo Shoemaker, [address], [place], [address]. tel:[phone] OFFICE/OUTPA TIENT VISIT EST [facility], [address], [place], [place], [address], [place] tel:[phone] [facility] Freeform HPI (chief complaint) Atypical chest painEssentia l hypertension Hypercholest eremiaPedal edemaShortne ss of breathDiasto lic dysfunctionS moking 0 7 Rosetta Perez. [address] [facility], [address], [place], [place], [address], [place]. tel:[phone] Referring Provider: Newton Ramesh, [address], [place], [address]. tel:[phone] OFFICE/OUTPA TIENT VISIT EST [facility], [address], [place], [place], [address], [place] tel:[phone] [facility] Freeform HPI (chief complaint) Atypical chest painHypercho lesteremiaPa lpitationsPe mariama edemaAnxiety Shortness of breath 7 Rosetta Perez. [address] [facility], [address], [place], [place], [address], [place]. tel:[phone] Referring Provider: Jerardo Shoemaker, [address], [place], [address]. tel:[phone] [facility], [address] [place] [address] [address], [place], [place], [address], [place] tel:[phone] [facility] Palpitations 6 Rosetta Perez. [facility] [facility], [address], [place], [place], [address], [place]. tel:[phone] Referring Provider: Ana Villagomez, [address] [place] [address] [address], [place], [address]. tel:[phone] [facility], [address] [place], [place] [address], [place], [place], [address], [place] tel:[phone] [place] [address] No Information 6 Rosetta Perez. [facility]1 [facility], [address], [place], [place], [address], [place]. tel:[phone] Referring Provider: Ana Villagomez, [address] [place] [address] [address], [place], [address]. tel:[phone] [facility], [facility]1 [facility] [address], [place], [place], [address], [place] tel:[phone] [place] [address] No Information 6 Jose G Degroot. [facility]1 [place], [place], [address], [place]. tel:[phone] Referring Provider: Ana Villagomez, [address] [place] [address] [address], [place], [address]. tel:[phone] [facility], [address] [facility] [address], [place], [place], [address], [place] tel:[phone] [facility] Atypical chest pain 6 Rosetta Perez. [address] [facility], [address], [place], [place], [address], [place]. tel:[phone] [facility], [address] [facility] [address], [place], [place], [address], [place] tel:[phone] [facility] Palpitations 6 Rosetta Perez. [address] [facility], [address], [place], [place], [address], [place]. tel:[phone] OFFICE/OUTPA TIENT VISIT EST [facility], [address] [facility], [place], [place], [address], [place] tel:[phone] [facility] Freeform HPI (chief complaint) Shortness of breathPedal edemaPalpita tionsAnxiety Atypical chest painEssentia l hypertension Hypercholest eremiaHypert ensive heart disease with heart failure 6 Rosetta Perez. [address] [facility], [address], [place], [place], [address], [place]. tel:[phone] Referring Provider: Newotn Ramesh, [address], [place], [address]. tel:[phone] [facility], [address], [place], [place], [address], [place] tel:[phone] [facility] Hypertensive CHF 6 Rosetta Perez. [address] [facility], [address], [place], [place], [address], [place]. tel:[phone] [facility], [address] [facility] [address], [place], [place], [address], [place] tel:[phone] [facility] No Information 5 Rosetta Perez. [facility]1 [facility], [address], [place], [place], [address], [place]. tel:[phone] Referring Provider: Jerardo Shoemaker, [address], [place], [address]. tel:[phone] [facility], [facility]1 [place], [place], [address], [place] tel:[phone] [facility] No Information 3 Ayde Kurtz. [facility]5 [place], [place], [address], [place]. tel:[phone] Referring Provider: Michelle Shoemaker, [facility]5 [place], [address]. tel:[phone] Family History Family Member Type Diagnosis Age At Onset Mother Problem (finding) Diabetes mellitus Father Problem (finding) Myocardial infarction ( Cause Of ) 42 Payers Payer name Insurance type Covered republican ID Authoriza tion(s) [employer] Medicare [place] [id number] Social History Type Description Quantity Date Captured Comments Sex Female Smoking Status No Information Chief Complaint And Reason For Visit No Information Reason For Referral Reason For Referral No Information Plan Of Treatment Date Type Action Status Goal Urinalysis. Due on due Goal ECG due Goal Pneumococcal vaccine. Due on due Goal Diabetes screening. Due on A due Goal Tdap. Due on due Goal Td vaccine. Due on due Goal Mammogram. Due on due Goal Influenza vaccine. Due on Au due Goal Hepatitis C screening. Due o n due Goal FIT-DNA. Due on due Goal Fall Screening. Due on due Goal DEXA scan. Due on due Goal Colonoscopy. Due on due Goal Advance Care Directive. Due on due Goal Depression screening. Due on due Goal CT-Colonography. Due on due Goal Sigmoidoscopy. Due on due Goal Tobacco screening. Due on due Goal Urine microalbumin. Due on due Goal Foot exam. Due on due Goal Dilated eye exam. Due on Sep due Goal GFR. Due on due Goal Hemoglobin A1C. Due on due Goal ASCVD 10 year risk. Due on due Goal FOBT. Due on due Goal FIT. Due on due Goal FOBT. Due on due Goal Hepatitis C screening. Due o n due Goal Influenza vaccine. Due on due Goal FIT-DNA. Due on due Goal Mammogram. Due on due Goal Sigmoidoscopy. Due on due Goal Hemoglobin A1C. Due on due Goal Urine microalbumin. Due on due Goal Foot exam. Due on 8 due Goal GFR. Due on due Goal Dilated eye exam. Due on Aug due Goal ASCVD 10 year risk. Due on due Goal Urinalysis. Due on due Goal Diabetes screening. Due on due Goal ECG due Goal Pneumococcal vaccine. Due on due Goal Tobacco screening. Due on due Goal Tdap. Due on due Goal CT-Colonography. Due on due Goal Advance Care Directive. Due on due Goal Colonoscopy. Due on due Goal FIT. Due on due Goal DEXA scan. Due on due Goal Fall Screening. Due on due Goal Td vaccine. Due on due Goal Depression screening. Due on due Goal Diabetes screening. Due on due Goal Pneumococcal vaccine. Due on due Goal Influenza vaccine. Due on due Goal Sigmoidoscopy. Due on due Goal Depression screening. Due on due Goal Td vaccine. Due on due Goal CT-Colonography. Due on due Goal Urinalysis. Due on due Goal ECG due Goal Fall Screening. Due on due Goal Advance Care Directive. Due on due Goal Hepatitis C screening. Due o n due Goal Mammogram. Due on due Goal FIT. Due on due Goal Tdap. Due on due Goal FOBT. Due on due Goal Colonoscopy. Due on due Goal DEXA scan. Due on due Goal FIT-DNA. Due on due Goal Tobacco screening. Due on due Goal Urine microalbumin. Due on due Goal GFR. Due on due Goal ASCVD 10 year risk. Due on due Goal Dilated eye exam. Due on Apr due Goal Hemoglobin A1C. Due on due Goal Foot exam. Due on due Goal Urinalysis. Due on due Goal Diabetes screening. Due on due Goal Pneumococcal vaccine. Due on due Goal Advance Care Directive. Due on due Goal Influenza vaccine. Due on due Goal Hemoglobin A1C. Due on due Goal Hepatitis C screening. Due o n due Goal FIT-DNA. Due on due Goal FOBT. Due on due Goal FIT. Due on due Goal Mammogram. Due on due Goal Colonoscopy. Due on 025 due Goal Tobacco screening. Due on Ak due Goal Tdap. Due on due Goal Td vaccine. Due on 25 due Goal ECG due Goal DEXA scan. Due on due Goal Fall Screening. Due on due Goal Depression screening. Due on due Goal Urine microalbumin. Due on due Goal Dilated eye exam. Due on Apr due Goal Foot exam. Due on 8 due Goal GFR. Due on due Goal ASCVD 10 year risk. Due on due Goal CT-Colonography. Due on due Goal Sigmoidoscopy. 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 after presenting with chest pain, high-sensitivity troponins showed only very minimal elevation with no significant change in delta, there were no concerns for acute coronary syndrome at the time. After cardiology evaluation they recommended optimizing antianginal therapy and isosorbide mononitrate 30 mg daily was initiated. Losartan was also held due to low blood pressures to optimize antianginal therapy.She reports no symptoms of chest pain much improved. She does occasionally have chest tightness with significant activity.She denies any orthopnea or PND, denies any heart palpitations.She has significantly decreased exercise capacity given her paraplegia, she is currently wheelchair-bound. She is able to use a rolling walker and walk about 5 steps.She currently smokes 1 pack/day. HPI History Patient is a 64- year-old female who is here for routine hospital follow-up. She will be following with Dr. Urbina.Previous hospitalization she did not have any known cardiac history but had a history of hypertension, back surgery, pancreatitis, type 2 diabetes, hyperlipidemia, tobacco use. Patient also noted to have T1-T7 paraplegia of the left side with neurogenic bladder and a suprapubic catheter.Patient was hospitalized 04/09/2024 through 04/12/2024 for chest pain. She reported intermittent chest pressure for 36 hours prior to hospitalization. Symptoms worsened approximately 4 hours prior to hospitalization. Patient was found to have dynamic ST changes with inferior Q waves on EKG in the ED. She was brought to the Tele[facility] to undergo coronary angiography.Coronary angiogram revealed patient had significantly tortuous epicardial vessels with a distal OM 2 occlusion with collateral filling left to left. Proximal RCA with 80% stenosis which was intervened on with a 2.5 [place] FABIOLA postdilated to 2.75 mm. The OM 2 was unable to be traversed and crossed with the balloon secondary to tortuosity and occlusion, elected for medical management as patient was symptom-free after PCI to the RCA. EKG post PCI showed dramatic improvement in inferior leads. Echocardiogram 04/11 showed an EF of 63%, segmental wall motion abnormalities, grade 1 DD, mild LVH, mild MR, trace TR, trivial pericardial effusion.Patient was discharged on Lasix 20 mg as needed for weight gain or lower extremity edema, losartan 25 mg daily, aspirin 81 mg daily, Plavix 75 mg daily, Zetia 10 mg daily (statin intolerance), and colchicine 0.6 mg daily. L ipid panel 04/2024: TC 265, trig 171, HDL 38, LDL 193Today patient states she is doing relatively well since discharge. Has remained compliant with DAPT. Denies any chest pain or anginal symptoms, shortness of breath or dyspnea, dizziness, lightheadedness, syncope/near syncope. HPI History Patient is a 64- year-old female who is here for routine hospital follow-up. She will be following with Dr. Urbina.Previous hospitalization she did not have any known cardiac history but had a history of hypertension, back surgery, pancreatitis, type 2 diabetes, hyperlipidemia, tobacco use. Patient also noted to have T1-T7 paraplegia of the left side with neurogenic bladder and a suprapubic catheter.Patient was hospitalized 04/09/2024 through 04/12/2024 for chest pain. She reported intermittent chest pressure for 36 hours prior to hospitalization. Symptoms worsened approximately 4 hours prior to hospitalization. Patient was found to have dynamic ST changes with inferior Q waves on EKG in the ED. She was brought to the Teleph[facility] Case [facility] to undergo coronary angiography.Coronary angiogram revealed patient had significantly tortuous epicardial vessels with a distal OM 2 occlusion with collateral filling left to left. Proximal RCA with 80% stenosis which was intervened on with a 2.5 [place] FABIOLA postdilated to 2.75 mm. The OM 2 was unable to be traversed and crossed with the balloon secondary to tortuosity and occlusion, elected for medical management as patient was symptom-free after PCI to the RCA. EKG post PCI showed dramatic improvement in inferior leads. Echocardiogram 04/11 showed an EF of 63%, segmental wall motion abnormalities, grade 1 DD, mild LVH, mild MR, trace TR, trivial pericardial effusion.Patient was discharged on Lasix 20 mg as needed for weight gain or lower extremity edema, losartan 25 mg daily, aspirin 81 mg daily, Plavix 75 mg daily, Zetia 10 mg daily (statin intolerance), and colchicine 0.6 mg daily. L ipid panel 04/2024: TC 265, trig 171, HDL 38, LDL 193Today patient states she is doing relatively well since discharge. Has remained compliant with DAPT. Denies any chest pain or anginal symptoms, shortness of breath or dyspnea, dizziness, lightheadedness, syncope/near syncope. Freeform HPI f/u for atypical CP , DD, HTN, DM, hypercholesterolemia and fibromyalgia. Baseline echo showed grade 1 diastolic dysfunction and otherwise no significant abnormalities. Nuclear MPI was normal. Patient denied any recurrent CP, lightheadedness, syncope, orthopnea, claudications. She does have some dyspnea on exertion, thought to be secondary to deconditioning. Unfortunately still smokes but has cut down significantly and now smokes anywhere between 3-10 cigarettes a day depending on how stressed out cheese. She reports significant amount of stress in the family with her being sick and some other issues with her daughter.. [facility] , DD, HTN, DM, hypercholesterolemia and fibromyalgia. Baseline echo showed grade 1 diastolic dysfunction and otherwise no significant abnormalities. Nuclear MPI was normal. Patient denied any recurrent CP, lightheadedness, syncope, orthopnea, claudications. She does have some dyspnea on exertion, thought to be secondary to deconditioning. Baseline ET is reportedly about a mile but I suspect it is probably not that much. Unfortunately still smokes.. [facility] for ankle sw elling, atypical CP and possible diagnosis of CHF, HTN, DM, hypercholesterolemia and fibromyalgia. Baseline echo showed grade 1 diastolic dysfunction and otherwise no significant abnormalities. Nuclear MPI was normal. Patient denied any recurrent CP, lightheadedness, syncope, orthopnea, claudications. She does have some dyspnea on exertion, but to be secondary to deconditioning. Baseline ET is about a mile with her dog but I suspect she probably walks less than that.. [facility] New patient who is being referred for ?CHF exacerbation and ankle swelling. He does not have a diagnosis of CHF but she was referred for possible diagnosis of CHF. She has history of hypertension, diabetes, hypercholesterolemia and fibromyalgia. Pt said she sleep walk per her . She does complain about having chest pain and palpitaions but also exp. anxiety. Cp desribed as pressure-like with sharp and he, nonradiating, lasting about 10-15 minutes, sometimes relieved by aspirin. Related to exertion. Palpations are described as heart racing, lasting about 5 minutes and not occurring with chest pain. Denied any lightheadedness, syncope, orthopnea, claudications. Baseline ET is about a mile with her dog but she thinks she cannot walk on the treadmill.. Functional Status Date Functional Assessmen t No Information Instructions Date Instruction Additional Infor mation Discussed Monitoring Weights for CHF Stress Reduction Discussion Given Exercise Guidelines Discussed Medication Compliance Weight Loss Discussion Low Sodium Diet Instruction Low Fat Diet Instruction Given Exercise Guidelines Weight Loss Discussion Low Sodium Diet Instruction Low Fat Diet Instruction Discussed Medication Compliance Discussed Monitoring Weights for CHF Stress Reduction Discussion Discussed Medication Compliance Stress Reduction Discussion Given Exercise Guidelines Weight Loss Discussion Low Carb Diet Instruction Low Sodium Diet Instruction Low Fat Diet Instruction Assessments Type Assessment Date No Information Patient Care Teams Name Effective Dates (start - stop) Status Members No Information
[2025-01-13] VITALS (9 sets, daily range): BP systolic 101–141; BP diastolic 61–79; PULSE 76–88; RESP 17–24; TEMP 36.9; O2SAT 91–99; BMI 40.3
--- NOTE | 2025-01-13 18:48 | ECG_ITS ---
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 Measurements Intervals [place] Rate: 88 P: 15 [place]: 163 QRS: 68 QRSD: 113 T: 159 QT: 387 QTc: 469 Interpretive Statements SINUS RHYTHM WITH OCCASIONAL SUPRAVENTRICULAR PREMATURE COMPLEXES LOW QRS VOLTAGE IN PRECORDIAL LEADS [QRS DEFLECTION < 1.0 mV IN CHEST LEADS] MODERATE INTRAVENTRICULAR CONDUCTION DELAY [110+ ms QRS DURATION] ST DEVIATION AND MODERATE T-WAVE ABNORMALITY, CONSIDER INFERIOR ISCHEMIA [-0.1+ mV T-WAVE IN II/aVF] No previous ECG available for comparison Electronically Signed On 01-13-2025 19:41:24 INTEGRATION LEAD by Ayan Angulo M.D. [id number]
--- OUTSIDE RECORDS SUMMARY | 2025-01-13 18:52 | XMS_ITS | Clinical Summary ---
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
--- OUTSIDE RECORDS SUMMARY | 2025-01-13 18:52 | XMS_ITS | Clinical Summary ---
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, Abstract from Last 3 Months Social History Tobacco Use Types Packs/Day Years [...] on file Legal Sex Female 4:27 AM MILL HAND Gender Identity Not on file Sexual Orientation Not on file Last Filed Vital Signs Vital Sign Reading Time Taken Comments Blood Pressure 113/46 03/20/2023 10:00 PM MILL HAND Pulse 80 03/20/2023 10:45 PM MILL HAND Temperature 36.7 C (98 F) 03/20/2023 9:49 PM MILL HAND Respiratory Rate 18 03/20/2023 11:39 PM MILL HAND Oxygen Saturation 92% 03/20/2023 11:39 PM MILL HAND Inhaled Oxygen Concentration - - Weight 103.4 kg (228 lb) 03/20/2023 9:49 PM MILL HAND Height 167.6 cm (5' 6 ) 03/20/2023 9:49 PM MILL HAND Body Mass Index 36.8 03/20/2023 9:49 PM MILL HAND Plan of Treatment Health Maintenance Due Date Last Done Comments PNEUMOCOCCAL VACCINE 50+ YEARS (1 of 2 - PCV) 01/01/19 77 ZOSTER VACCINE (1 of 2) 1977 BREAST CANCER SCREENING 1998 COLORECTAL SCREENING 2003 Colorectal Cancer Screening 2003 FIT-DNA Q 3 years 2003 FIT/FOBT Q 1 year 2003 Flex Sig/CT Colonography Q 5 years 2003 RSV VACCINE (60+ or ) (1 - Risk 50-74 years 1-dose series) 01/02/2008 OSTEOPOROSIS SCREENING 2023 INFLUENZA VACCINE (#1) 2024 DTAP/TDAP/TD VACCINES (2 - Td or Tdap) 10/25/2032 Insurance MEDICAID [place] Care Teams Folder And Notcher Relationship Specialty Start Date End Date Joni Duque MD [address] [place] [phone] PCP - General Family Practice 03/20/23
--- NOTE | 2025-01-13 19:06 | XRR_ITS ---
PROCEDURE INFORMATION: Exam: XR Chest Exam date and time: 01/13/2025 7:12 PM Age: 65 years old Clinical indication: Pain; Chest pressure and left-sided; Prior surgery; Surgery date: 6+ months; Surgery type: Pacekmaker; Additional info: Cp TECHNIQUE: Imaging protocol: Radiologic exam of the chest. Views: 1 view. COMPARISON: No relevant prior studies available. FINDINGS: Tubes, catheters and devices: There is transvenous AICD in place with leads in appropriate position. Lungs: Visualized portions of the lungs are clear. There is no pulmonary venous congestion. Pleural spaces: Unremarkable. No pleural effusion. No pneumothorax. Heart/Mediastinum: Heart is within normal limits of size. Bones/joints: There is fracture of the neck of the right humerus which appears to be healed but is not fully evaluated on this study. XR/XR chest 1V portable [id number] IMPRESSION: No acute infiltrate.
[2025-01-13 19:56] LABS: Hematocrit 40.7 % (36-47); Hemoglobin 13.10 g/dL (11.27-16.99); Mean Corpuscular HGB Conc 32.2 g/dL (30-55); Mean Corpuscular Hemoglobin 30.8 pg (27-33); Mean Corpuscular Volume 95.8 fl (85-98); Nucleated Red Blood Cells % 0 %; Platelet Count 231 10^3/cmm (157-399); Red Blood Count 4.25 10^6/uL (3.85-5.65); White Blood Count 8.48 10^3/uL (3.29-11.43)
--- NOTE | 2025-01-13 20:05 | ED_ITS ---
HPI - Chest Pain 2 General: Chief Complaint: Chest Pain Stated Complaint: Chest pains, SOB, Back pain,shoulder pain, LT arm Time Seen by Provider: 01/13/25 19:05 History of Present Illness: Patient is a 65-year-old female presenting with chest pain that has been present for approximately one month. She describes a burning sensation underneath her breast that radiates around to her back. The pain is tender to palpation and is characterized as deep rather than superficial. Associated symptoms include cough with sputum production and wheezing. Patient also reports bilateral leg swelling, particularly in the knees, which she attributes to her rheumatoid arthritis. She denies any known fever or rash in the affected area. Patient has not received any treatment for these symptoms prior to this visit. Her sister, who lives with her, has also been sick recently. Related Data Previous Rx's ?Medication ?Instructions ?Recorded albuterol sulfate 90 mcg/actuation 2 inh inhalation Q4 H PRN shortness 01/13/25 aerosol inhaler of breath or wheezing #6.7 g gwyn doxycycline hyclate 100 mg tablet 100 mg PO BID 7 days #14 tabs 01/13/25 methylprednisolone 4 mg tablets in See Rx Instructions PO .COMPLEX 01/13/25 a dose pack (Medrol (Mikey)) #21 ea Allergies Allergy/AdvReac Type Severity Reaction Status Date / Time doxacurium Allergy Unknown Unverified 02/18/24 08:55 dronedarone Allergy Unknown Unverified 02/18/24 08:55 Sulfamethoxazole-Trimethoprim Allergy Unknown Unverified 02/18/24 08:55 Physical Exam 2 Const: COMMON NORMALS: no acute distress GENERAL APPEARANCE: cooperative; not ill appearing and not frail appearing HENMT: COMMON NORMALS: normocephalic, atraumatic and Normal external nose present HEAD & SCALP: normocephalic and atraumatic FACE & SINUS: normal facial exam and face symmetric NOSE: Normal external nose present Eye: COMMON NORMALS: Equal, round and reactive pupils present and EOMs intact bilaterally PUPIL: Yes Equal, round and reactive pupils present Neck/C-Spine: GENERAL: Yes trachea midline Chest: CHEST: Yes Symmetrical chest wall rise Resp: COMMON NORMALS: normal respiratory effort, No retractions and No use of accessory muscles AUSCULTATION: wheezes Cardio: COMMON NORMALS: regular rate and regular rhythm RATE: regular rate RHYTHM: regular rhythm GI: COMMON NORMALS: Normal to inspection, nondistended, normoactive bowel sounds present Extremity: GENERAL: Yes edema (mild) Neuro: ROYCE COMA SCALE: document GCS findings [place] coma scale eye opening: Spontaneous [place] coma scale verbal response: Orientated Royce coma scale motor response: Obey commands [place] coma scale total score: 15 S ENSORY EXAM: Yes extremities (intact) Psych: COMMON NORMALS: speech normal SPEECH: Yes normal speech Skin: COMMON NORMALS: no rashes or lesions noted GENERAL SKIN EXAM: no rashes or lesions noted Course 2 Vital Signs: Vital signs: Vital Signs Temperature 98.5 F 01/13/25 18:45 Pulse Rate 81 01/13/25 22:37 Respiratory Rate 19 H 01/13/25 22:37 Blood Pressure 137/66 01/13/25 22:37 Pulse Oximetry 91 01/13/25 22:37 Oxygen Delivery Me thod Room Air 01/13/25 21:12 MDM - Chest Pain Medical Decision Making Left-sided pleuritic chest discomfort. Cough with sputum production. Vitals are stable here. She is afebrile. Saturations remain normal on room air. CBC is normal. BMP is not remarkable. Chest x-ray is nonacute. She is nontachycardic, and nonhypoxic. Delta troponin is -1 at 2 hours. They remain normal. Lactic acid is 1.9. Swabs for flu RSV and COVID are negative. EKG is not remarkable. She is treated with nebulizer treatment, Solu-Medrol, doxycycline here. Will continue steroids doxycycline and albuterol. Return for worsening symptoms despite treatment. Lab Data 01/13/25 19:43 01/13/25 19:43 Radiology Impressions Chest X-Ray 01/13/25 19:06 IMPRESSION: No acute infiltrate. Laboratory Results WBC 8.48 10^3/uL (3.29-11.43) 01/13/25 19:43 RBC 4.25 10^6/uL (3.85-5.65) 01/13/25 19:43 Hgb 13.10 g/dL (11.27-16.99) 01/13/25 19:43 Hct 40.7 % (36-47) 01/13/25 19:43 MCV 95.8 fl (85-98) 01/13/25 19:43 MCH 30.8 pg (27-33) 01/13/25 19:43 MCHC 32.2 g/dL (30-55) 01/13/25 19:43 RDW 14.6 % (12.1-15.1) 01/13/25 19:43 Plt Count 231 10^3/cmm (157-399) 01/13/25 19:43 MPV 9.3 fL (7.4-10.4) 01/13/25 19:43 Neut % (Auto) 71.4 % 01/13/25 19:43 Lymph % (Auto) 15.8 % 01/13/25 19:43 [place] % (Auto) 11.2 % 01/13/25 19:43 Eos % (Auto) 0.9 % 01/13/25 19:43 Baso % (Auto) 0.5 % 01/13/25 19:43 Neut # (Auto) 6.05 10^3/uL (1.8-7.7) 01/13/25 19:43 Lymph # (Auto) 1.3 10^3/uL (0.8-4.8) 01/13/25 19:43 [place] # (Auto) 1.0 10^3/uL (0.2-0.9) H 01/13/25 19:43 Eos # (Auto) 0.1 10^3/uL (0.0-0.8) 01/13/25 19:43 Baso # (Auto) 0.0 10^3/uL (0.0-0.1) 01/13/25 19:43 Nucleated RBC % (auto) 0 % 01/13/25 19:43 Nucleated RBCs # 0.0 /100WBC 01/13/25 19:43 Sodium 140 mmol/L (136-145) 01/13/25 19:43 Potassium 4.0 mmol/L (3.5-5.1) 01/13/25 19:43 Chloride 102 mmol/L (98-107) 01/13/25 19:43 Carbon Dioxide 27 mmol/L (22-29) 01/13/25 19:43 Anion Gap 15.0 (5-19) 01/13/25 19:43 BUN 11 mg/dL (8-23) 01/13/25 19:43 Creatinine 0.9 mg/dL (0.5-0.9) 01/13/25 19:43 GFR Calculation 62.5 mL/min (90-130) L 01/13/25 19:43 Glucose 117 mg/dL (65-115) H 01/13/25 19:43 Calculated Osmolality 290 mOsm/kg (285-295) 01/13/25 19:43 Lactic Acid 1.9 mmol/L (0.5-2.2) 01/13/25 19:43 Calcium 9.0 mg/dL (8.5-10.5) 01/13/25 19:43 Total Bilirubin 0.4 mg/dL (0.15-1.2) 01/13/25 19:43 AST 15 U/L (0-32) 01/13/25 19:43 ALT 15 U/L (0-33) 01/13/25 19:43 Alkaline Phosphatase 180 U/L (35-105) H 01/13/25 19:43 Creatine Kinase 17 U/L (26-192) L 01/13/25 19:43 Troponin T Baseline 8 ng/L (0-10) 01/13/25 19:43 Troponin T 120 Minute 7.10 ng/L (0-10) 01/13/25 21:38 Delta Troponin T -0.90 ABS# (0-10) L 01/13/25 21:38 NT-Pro-B Natriuret Pep 470 pg/mL (0-125) H 01/13/25 19:43 Total Protein 6.9 g/dL (6.6-8.7) 01/13/25 19:43 Albumin 3.5 g/dL (3.5-5.2) 01/13/25 19:43 Globulin 3.4 g/dL (1.3-4.6) 01/13/25 19:43 Influenza A (PCR) Negative (Negative) 01/13/25 19:51 Influenza Type B (PCR) Negative (Negative) 01/13/25 19:51 RSV (PCR) Negative (Negative) 01/13/25 19:51 SARS-CoV-2 (PCR) Negative (Negative) 01/13/25 19:51 All radiology interpretation(s) finalized by discharge Discharge Plan Discharge Patient Disposition: Home Clinical Impression: Acute exacerbation of chronic bronchitis Condition: Stable Prescriptions: New methylprednisolone [Medrol (Mikey)] 4 mg tablets,dose pack See Rx Instructions .ROUTE .COMPLEX Qty: 21 0RF Rx Instructions: orally per package directions doxycycline hyclate 100 mg tablet 100 mg PO BID 7 Days Qty: 14 0RF albuterol sulfate 90 mcg/actuation HFA aerosol inhaler 2 inh INHALATION Q4H PRN (Reason: shortness of breath or wheezing) Qty: 6.7 1RF Discharge Orders: Discharge ED (Routine); Ordered 01/13/25 Ordered By: Bong Raymundo Patient Instructions: Acute Bronchitis (ED), Opioid Safety, Pain Management, Patient Portal & Kelly Instructions Activity Restrictions/Additional Instructions: Use the inhaler every 4 hours while awake for the first 48 hours scheduled, then as needed following that. Return for any problems. Other medications as directed. Stay on your 5 mg prednisone throughout this treatment, and afterward. Call your doctor on Thursday for a follow-up appointment for recheck. Print Language: Pashto Coding Level of Care Code ED Rn Hemodialysis for Kishan Sandhu Heart Score HEART Score Components History: Slightly Suspicous EKG: Normal Age: 65 or more yrs Risk Factors: >/=3 Risk Factors Troponin: Baseline Trop <16 ng/L HEART Score RESULT HEART Score: 4
[2025-01-13 20:13] LABS: Lactic Sepsis W/Reflex 1.9 mmol/L (0.5-2.2)
[2025-01-13 20:17] LABS: Troponin(5th) Baseline 8 ng/L (0-10)
[2025-01-13 20:25] LABS: Alanine Aminotransferase 15 U/L (0-33); Albumin Level 3.5 g/dL (3.5-5.2); Alkaline Phosphatase 180 U/L (35-105); Anion Gap 15.0 (5-19); Aspartate Amino Transferase 15 U/L (0-32); Blood Urea Nitrogen 11 mg/dL (8-23); Calcium 9.0 mg/dL (8.5-10.5); Carbon Dioxide 27 mmol/L (22-29); Chloride 102 mmol/L (98-107); Globulin 3.4 g/dL (1.3-4.6); Glucose 117 mg/dL (65-115); NT Pro B Type Natriuretic Pept 470 pg/mL (0-125); Osmolality Calculated 290 mOsm/kg (285-295); Potassium 4.0 mmol/L (3.5-5.1); Sodium 140 mmol/L (136-145); Total Protein 6.9 g/dL (6.6-8.7)
[2025-01-13 20:33] LABS: Respiratory Syncytial Virus Ce NEGATIVE (Negative); SARS-CoV-2 PCR NEGATIVE (Negative)
--- NOTE | 2025-01-13 21:06 | ECG_ITS ---
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 Measurements Intervals [place] Rate: 79 P: 17 SD: 169 QRS: 75 QRSD: 125 T: 129 QT: 368 QTc: 423 Interpretive Statements SINUS RHYTHM WITH OCCASIONAL VENTRICULAR PREMATURE COMPLEXES MODERATE INTRAVENTRICULAR CONDUCTION DELAY [110+ ms QRS DURATION] ST DEVIATION AND MODERATE T-WAVE ABNORMALITY, CONSIDER ANTERIOR ISCHEMIA [-0.1+ mV T-WAVE IN V3/V4] Compared to ECG 01/13/2025 18:48:15 Ventricular premature complex(es) now present T-wave abnormality still present Possible ischemia still present Electronically Signed On 01-15-2025 16:36:55 CASE REVIEWER by Raad Beaver M.D. [email or web address] [email or web address]
[2025-01-13] MEDS: methylPREDNISolone sod succ 125 mg/2 mL INJ 60 MG IVP (21:20)
[2025-01-13 22:07] LABS: Troponin 5 2HR 7.10 ng/L (0-10)
[2025-01-13 22:13] LABS: Troponin 5 2HR Delta -0.90 ABS# (0-10)
== END 2025-01-13 23:26 | disposition home or self-care (01) ==
PROVIDERS: Emergency Provider Emergency Medicine
DX: J42 Unspecified chronic bronchitis (principal); Z11.52 Encounter for screening for COVID-19
CPT/HCPCS: 36415; 71045; 80053; 82550; 83605; 83880; 84484; 85025; 87637; 93005; 94640; 96374; 99285; J2919; J9999

== ENCOUNTER 2025-02-13 12:04 | Oncology outpatient (recurring) (ONCR) | payer MEDICARE, MEDICAID, SELFPAY ==
[2025-02-13] MEDS: diphenhydrAMINE 50 mg/mL SDV 1mL 25 MG IVP (12:37)
[2025-02-13] MEDS: methylPREDNISolone sod succ 40 mg/mL INJ 20 MG IVP (12:39)
[2025-02-13 12:44] VITALS: BP 128/83; PULSE 76; RESP 18; TEMP 36.8; O2SAT 96
[2025-02-13] MEDS: SODIUM CHLORIDE 0.9% IV (13:29)
[2025-02-13] MEDS: TOCILIZUMAB AAZG IV (13:29)
[2025-02-13 14:29] VITALS: BP 129/82; PULSE 68; RESP 17; TEMP 36.6; O2SAT 95
== END 2025-03-01 23:59 | disposition home or self-care (01) ==
PROVIDERS: PCP Family Medicine; Visit Provider Internal Medicine Rheumatology
DX: M05.89 Other rheumatoid arthritis with rheumatoid factor of multiple sites (principal); Z79.899 Other long term (current) drug therapy
CPT/HCPCS: 96375; 96413; J1200; J2919; J7050; J9999; Q5135